=== PATIENT | female | born 1975 | race Caucasian/White ===

== ENCOUNTER 2023-10-16 10:16 | Inpatient (IN) ==
[2023-10-16] MEDS: SODIUM CHLORIDE 0.9% 1,000 ML IV ONE ×2 (11:30→13:32)
--- NOTE | 2023-10-16 11:55 | XRay Report ---
XR chest 1V portable HISTORY: weakness COMPARISON: None. FINDINGS: No pneumothorax. No pleural effusions. Slightly rotated study. Small linear scarlike densit y within the right midlung zone. Otherwise, the lungs are clear. The heart is normal in size. There i s a healing distal left clavicle fracture. This demonstrates mild inferior angulation. No acute fract ures identified within the chest. IMPRESSION: 1. No acute process within the chest. 2. Healing distal left clavicle fracture. ACT 112: Negative or not required by law. Electronically signed by: Sorin Hopper M.D. 10/16/2023 11:54 AM
[2023-10-16 12:04] LABS: Albumin Level 3.2 gm/dl (3.4-5.0); BUN Creatinine Ratio 17.1 (10-20); Bilirubin,Total 0.3 mg/dl (0.2-1.0); Calcium 8.6 mg/dl (8.6-10.3); Creatinine Clr Calc Pharmacy 142.7 ml/min; Est GFR (African American) 149.2 ml/min; Est GFR (Non-African American) 128.7 ml/min; Globulin 3.2 gm/dl (2.5-4.0); Phosphorus 3.4 mg/dl (2.5-4.9); Potassium 3.6 mmol/L (3.5-5.1); Total Protein 6.4 gm/dl (6.0-8.3)
--- NOTE | 2023-10-16 12:06 | Emergency Department Note ---
Impression & Plan Progressive encephalopathy, Proximal muscle weakness, Thrombocytosis, Celiac disease, Iron deficiency, UTI (urinary tract infection) ED Provider Note NAME: KECIA KOHLER AGE: 48 SEX: F : 1975 ARRIVES VIA: Ambulance INFORMANT: Patient ED PROVIDER(S): Yimi Blair MD CHIEF COMPLAINT: Weakness PLAN: Disposition: Admit MEDICAL DECISION MAKING: The patient is a pleasant 48-year-old woman with a past medical history of idiopathic thrombocytosis, celiac disease, recent complicated medical course of worsening generalized weakness dating back to July and recently admitted to [facility] at the beginning and then at the end of August with approximate 8-day hospitalizations and then most recently at the beginning of September at [facility] for another 8-day hospitalization who presents emergency department via EMS and accompanied by her for evaluation of persistent or generalized weakness. The patient's reports that her symptoms have not acutely worsened per se but have not improved at all. He admits that he was supposed to follow-up with a referral for home physical therapy but did not get the moment to get this done in the 48-hour window of time he was supposed to. He understands he did extensive testing during all her hospitalizations and in particular during her last hospitalization at [facility] they did perform a "spinal tap". He is not clear on the details of the lumbar puncture results and understands that it demonstrated "some inflammation" but he was not aware of any particular diagnosis such as Guillain-Resendiz which she admits he himself had wondered if this could be because of her symptoms. They deny any recent fevers, chills, cough, congestion. He admits that she has had poor appetite and poor oral intake overall. On my evaluation the patient is fatigued appearing but no acute distress, afebrile blood pressure upper 90s/60s and vital signs otherwise stable. She appears clinically dry. She exhibits generalized weakness in all extremities with increased truncal weakness. Bilateral patellar reflexes are blunted. Babinski reflexes down however the patient does have notable hyperalgesia when testing this. She exhibits masked facies without overt asymmetric facial weakness on my examination. EKG without overt acute ischemia. CXR negative for acute cardiopulmonary process per my personal preliminary review/interpretation. WBC 14.7 K with neutrophil predominance and mild left shift. H/H within normal limits. Platelets 1200, similar to prior values in setting of chronic idiopathic thrombocytosis. Chemistry without metabolic acidosis. Electrolytes and LFTs without significant abnormality. Procalcitonin is not elevated. TSH, free T4 and free T3 within normal limits. She negative. ESR is mildly elevated at 42 and CRP mildly elevated 2.2, nonspecific. UA suspicious for infection with WBCs and 2+ bacteria. Blood cultures were obtained and empiric treatment initiated with IV ceftriaxone. Tickborne illness testing repeated (this was performed on her prior hospitalizations and were negative). Anaplasma and babesia smear were negative. Lyme screen was negative. DNA testing is pending. Iron studies ordered and pending. Given the patient's reports that the patient did have a lumbar puncture on her last admission this was not repeated and request had made to [facility] for records which was pending. Case was discussed with Janett Strickland with [facility] hospitalist, who will evaluate the patient for admission. [facility] records were subsequently obtained and were reviewed/provided to admitting team. See admitting team HPI for summary of recent OSH extensive testing including imaging, LP, muscle biopsy, immunologic testing, and special consultations. Further management per admitting team. Triage Nursing notes reviewed and agree them. Prior/external medical records reviewed Vital Signs: reviewed Differential diagnosis: Infection, dehydration, metabolic abnormality, hypo/hyperglycemia, electrolyte disturbance, anemia, hypoxia, cardiac sources, intracerebral event, toxicologic, neurologic, as well as other pathologies. ER treatment provided: See below. Diagnostics interpreted by me: ECG: Normal sinus rhythm, 75 bpm, no ectopy, no overt ST elevation or depression, QTc 437, QRS 72. Cardiac Monitoring: An order for continuous cardiac monitoring was placed and demonstrated normal sinus rhythm, 75 bpm, no ectopy. Laboratory studies: See below Imaging studies: See below Consultation(s): Case was discussed with Janett Strickland with [facility] hospitalist, who will evaluate the patient for admission. HPI: The patient is a pleasant 48-year-old woman with a past medical history of idiopathic thrombocytosis, celiac disease, recent complicated medical course of worsening generalized weakness dating back to July and recently admitted to [facility] at the beginning and then at the end of August with approximate 8-day hospitalizations and then most recently at the beginning of September at [facility] for another 8-day hospitalization who presents emergency department via EMS and accompanied by her for evaluation of persistent or generalized weakness. The patient's reports that her symptoms have not acutely worsened per se but have not improved at all. He admits that he was supposed to follow-up with a referral for home physical therapy but did not get the moment to get this done in the 48-hour window of time he was supposed to. He understands he did extensive testing during all her hospitalizations and in particular during her last hospitalization at [facility] they did perform a "spinal tap". He is not clear on the details of the lumbar puncture results and understands that it demonstrated "some inflammation" but he was not aware of any particular diagnosis such as Guillain-Resendiz which she admits he himself had wondered if this could be because of her symptoms. They deny any recent fevers, chills, cough, congestion. He admits that she has had poor appetite and poor oral intake overall. ROS: See above HPI for pertinent positives & negatives. A total of 10 systems reviewed and were otherwise negative. VITALS:See Below PHYSICAL EXAMINATION: GENERAL: Awake, alert, fatigued-appearing, in no distress HENT: Normocephalic, atraumatic. Oropharynx with dry mucous membranes and otherwise unremarkable. EYES: Normal conjunctiva. Sclera non-icteric. NECK: Supple. No nuchal rigidity. FROM. No JVD. RESPIRATORY: Clear to auscultation. CARDIAC: Regular rate, normal rhythm. Extremities warm and well perfused. Pulses equal. ABDOMEN: Soft, non-distended. No tenderness to palpation. No rebound or guarding. No masses. RECTAL: Deferred. MUSCULOSKELETAL: Chest examination reveals no tenderness. The back is symmetrical on inspection without obvious abnormality. There is no CVA tenderness to palpation. No joint edema. LOWER EXTREMITIES: Calves are equal size bilaterally and non-tender. No edema. No discoloration. NEURO: She exhibits masked facies without overt asymmetric facial weakness on my examination. Equivocal dysconjugate gaze. Exhibits generalized weakness in all extremities with increased truncal weakness. Bilateral patellar reflexes are blunted. Babinski reflexes down however the patient does have notable hyperalgesia when testing this. SKIN: No rash or jaundice noted. 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 Consultant Required: No Beliefs That Will Affect Care: Rastafari and Cultural Current Living Situation: Spouse Feels Safe at Home: Yes Safety Concerns: Feels Safe At This Time Assistive Devices: Denture - Upper, Denture - Lower and Glasses Allergies Allergies Allergy/AdvReac Type Severity Reaction Status Date / Time Unable to Assess Allergy Unverified 10/16/23 12:57 Home Meds Home Medications Medication Instructions Recorded Confirmed aspirin 81 mg tablet,delayed 81 mg PO DAILY 10/16/23 10/16/23 release folic acid 1 mg tablet 1 mg PO DAILY 10/16/23 10/16/23 Results & Data (ED) Vital Signs Vital Signs - 24 hr 10/16/23 10:22 10/16/23 10:22 10/16/23 10:43 Temperature 36 C L Temperature Source Axillary Pulse Rate 77 76 77 Pulse Rate from SpO2 Sensor 76 Respiratory Rate 18 34 H 21 Blood Pressure 98/69 L Blood Pressure Mean 78 Pulse Oximetry 100 100 Oxygen Delivery Method Room Air Sepsis Recent Fever Within 48 Hours No Sepsis New/Unexplained Change in Mental Status No Sepsis Action Taken by Nursing No Action Required 10/16/23 11:00 10/16/23 11:00 10/16/23 11:13 Temperature Temperature Source Pulse Rate 80 80 Pulse Rate from SpO2 Sensor Respiratory Rate 24 Blood Pressure 106/71 Blood Pressure Mean 85 Pulse Oximetry Oxygen Delivery Method Sepsis Recent Fever Within 48 Hours Sepsis New/Unexplained Change in Mental Status Sepsis Action Taken by Nursing 10/16/23 11:13 10/16/23 11:30 10/16/23 12:00 Temperature Temperature Source Pulse Rate 79 81 77 Pulse Rate from SpO2 Sensor 79 81 Respiratory Rate 24 24 36 H Blood Pressure Blood Pressure Mean Pulse Oximetry 100 100 Oxygen Delivery Method Sepsis Recent Fever Within 48 Hours Sepsis New/Unexplained Change in Mental Status Sepsis Action Taken by Nursing 10/16/23 12:30 10/16/23 12:34 10/16/23 12:34 Temperature Temperature Source Pulse Rate 74 76 Pulse Rate from SpO2 Sensor 75 77 Respiratory Rate 29 H 28 H Blood Pressure 98/61 L Blood Pressure Mean 72 Pulse Oximetry 100 100 Oxygen Delivery Method Sepsis Recent Fever Within 48 Hours Sepsis New/Unexplained Change in Mental Status Sepsis Action Taken by Nursing 10/16/23 13:00 10/16/23 13:00 10/16/23 13:30 Temperature Temperature Source Pulse Rate 78 81 Pulse Rate from SpO2 Sensor 78 Respiratory Rate 25 H 12 Blood Pressure 94/72 L Blood Pressure Mean 78 Pulse Oximetry 100 Oxygen Delivery Method Sepsis Recent Fever Within 48 Hours Sepsis New/Unexplained Change in Mental Status Sepsis Action Taken by Nursing 10/16/23 13:30 10/16/23 14:00 10/16/23 14:00 Temperature Temperature Source Pulse Rate 86 Pulse Rate from SpO2 Sensor Respiratory Rate 26 H Blood Pressure 97/66 L 94/65 L Blood Pressure Mean 78 73 Pulse Oximetry 95 94 Oxygen Delivery Method Sepsis Recent Fever Within 48 Hours Sepsis New/Unexplained Change in Mental Status Sepsis Action Taken by Nursing Laboratory Data Attestation: I reviewed the patient's lab results. 10/16/23 11:13 10/16/23 11:13 Lab Results 10/16/23 10/16/23 10/16/23 Range/Units 11:03 11:13 12:10 WBC 14.75 H (4.8-10.8) K/ul RBC 4.87 (4.20-5.40) M/uL Hgb 12.8 (12.0-16.0) g/dl Hct 40.4 (37.0-47.0) % MCV 83.0 (80.0-100.0) fL MCH 26.3 (25.0-34.0) pg MCHC 31.7 L (32.0-36.0) g/dL RDW Std Deviation 51.8 H (36.4-46.3) fL RDW Coeff of Krzysztof 17.5 H (11.5-14.5) % Plt Count 1255 H* (130-400) K/uL MPV 9.1 L (9.4-12.4) fL Immature Gran % (Auto) 1.7 % Neut % (Auto) 73.2 % Lymph % (Auto) 15.1 % [place] % (Auto) 8.7 % Eos % (Auto) 0.6 % Baso % (Auto) 0.7 % Reticulocyte % (Auto) (0.50-2.00) % Neut # (Auto) 10.80 H (1.40-6.50) K/uL Lymph # (Auto) 2.22 (1.20-3.40) K/uL [place] # (Auto) 1.29 H (0.11-0.59) K/uL Eos # (Auto) 0.09 (0.00-0.50) K/uL Baso # (Auto) 0.10 (0.00-0.20) K/uL Reticulocyte # (0.020-0.100) 10^6/uL Immature Gran # (Auto) 0.25 H (0.01-0.20) K/uL Polychromasia 1+ Target Cells 1+ [place] Bodies 1+ Echinocytes 1+ ESR (0-20) mm/hr PT 11.9 (9.0-12.0) Seconds INR 1.1 (0.9-1.1) Sodium 138 (136-145) mmol/L Potassium 3.6 (3.5-5.1) mmol/L Chloride 105 (98-107) mmol/L Carbon Dioxide 26 (21-32) mmol/L Anion Gap 7 (3-11) BUN 6 (6-23) mg/dl Creatinine 0.35 L (0.6-1.2) mg/dl Est Cr Clr Drug Dosing 142.7 ml/min Est GFR ( Amer) 149.2 ml/min Est GFR (Non-Af Amer) 128.7 ml/min BUN/Creatinine Ratio 17.1 (10-20) Glucose 88 (70-99(Fasting)) mg/dl Lactate 1.4 (0.4-2.0) mmol/L Calcium 8.6 (8.6-10.3) mg/dl Phosphorus 3.4 (2.5-4.9) mg/dl Magnesium 2.0 (1.7-2.4) mg/dl Iron (35-150) mcg/dl Unsaturated IBC (155-355) mcg/dl Transferrin (200-360) mg/dl Ferritin (8-388) ng/ml Total Bilirubin 0.3 (0.2-1.0) mg/dl AST 26 (13-39) U/L ALT 20 (7-52) U/L Alkaline Phosphatase 83 (34-104) U/L Total Creatine Kinase 43 (26-192) U/L C-Reactive Protein (0-0.5) mg/dl Total Protein 6.4 (6.0-8.3) gm/dl Albumin 3.2 L (3.4-5.0) gm/dl Globulin 3.2 (2.5-4.0) gm/dl Albumin/Globulin Ratio 1.0 (0.9-2) Vitamin B12 680 (180-914) pg/ml Folate 20.86 (>5.38) ng/ml Procalcitonin (0-0.5) ng/ml TSH 0.822 (0.300-4.500) uIu/ml Free T4 (0.61-1.60) ng/dl Free T3 2.50 (2.3-4.2) pg/ml HCG, Qual Negative (Negative) Urine Color Yellow Urine Appearance Clear (Clear) Urine pH 6.5 (4.5-7.5) Ur Specific [place] 1.007 (1.000-1.030) Urine Protein Negative (Negative) Urine Glucose (UA) Negative (Negative) Urine Ketones Negative (Negative) Urine Blood Negative (Negative) Urine Nitrite Negative (Negative) Urine Bilirubin Negative (Negative) Urine Urobilinogen Negative (Negative) Ur Leukocyte Esterase 2+ H (Negative) Urine WBC (Auto) 10-30 H (0-5) /hpf Urine RBC (Auto) 0-4 (0-4) /hpf U Hyaline Cast (Auto) 0 (0-5) /lpf U Epithel Cells (Auto) 10-20 H (0-5) /lpf Urine Bacteria (Auto) 2+ H (Negative) Anaplasma Smear Babesia Smear Lyme Disease Screen (Negative) 10/16/23 Range/Units 12:29 WBC (4.8-10.8) K/ul RBC (4.20-5.40) M/uL Hgb (12.0-16.0) g/dl Hct (37.0-47.0) % MCV (80.0-100.0) fL MCH (25.0-34.0) pg MCHC (32.0-36.0) g/dL RDW Std Deviation (36.4-46.3) fL RDW Coeff of Krzysztof (11.5-14.5) % Plt Count (130-400) K/uL MPV (9.4-12.4) fL Immature Gran % (Auto) % Neut % (Auto) % Lymph % (Auto) % [place] % (Auto) % Eos % (Auto) % Baso % (Auto) % Reticulocyte % (Auto) 1.95 (0.50-2.00) % Neut # (Auto) (1.40-6.50) K/uL Lymph # (Auto) (1.20-3.40) K/uL [place] # (Auto) (0.11-0.59) K/uL Eos # (Auto) (0.00-0.50) K/uL Baso # (Auto) (0.00-0.20) K/uL Reticulocyte # 0.080 (0.020-0.100) 10^6/uL Immature Gran # (Auto) (0.01-0.20) K/uL Polychromasia Target Cells [place] Bodies Echinocytes ESR 42 H (0-20) mm/hr PT (9.0-12.0) Seconds INR (0.9-1.1) Sodium (136-145) mmol/L Potassium (3.5-5.1) mmol/L Chloride (98-107) mmol/L Carbon Dioxide (21-32) mmol/L Anion Gap (3-11) BUN (6-23) mg/dl Creatinine (0.6-1.2) mg/dl Est Cr Clr Drug Dosing ml/min Est GFR ( Amer) ml/min Est GFR (Non-Af Amer) ml/min BUN/Creatinine Ratio (10-20) Glucose (70-99(Fasting)) mg/dl Lactate (0.4-2.0) mmol/L Calcium (8.6-10.3) mg/dl Phosphorus (2.5-4.9) mg/dl Magnesium (1.7-2.4) mg/dl Iron < 10 L (35-150) mcg/dl Unsaturated IBC 188 (155-355) mcg/dl Transferrin 157 L (200-360) mg/dl Ferritin 27.8 (8-388) ng/ml Total Bilirubin (0.2-1.0) mg/dl AST (13-39) U/L ALT (7-52) U/L Alkaline Phosphatase (34-104) U/L Total Creatine Kinase (26-192) U/L C-Reactive Protein 2.21 H (0-0.5) mg/dl Total Protein (6.0-8.3) gm/dl Albumin (3.4-5.0) gm/dl Globulin (2.5-4.0) gm/dl Albumin/Globulin Ratio (0.9-2) Vitamin B12 (180-914) pg/ml Folate (>5.38) ng/ml Procalcitonin < 0.02 (0-0.5) ng/ml TSH (0.300-4.500) uIu/ml Free T4 0.82 (0.61-1.60) ng/dl Free T3 (2.3-4.2) pg/ml HCG, Qual (Negative) Urine Color Urine Appearance (Clear) Urine pH (4.5-7.5) Ur Specific [place] (1.000-1.030) Urine Protein (Negative) Urine Glucose (UA) (Negative) Urine Ketones (Negative) Urine Blood (Negative) Urine Nitrite (Negative) Urine Bilirubin (Negative) Urine Urobilinogen (Negative) Ur Leukocyte Esterase (Negative) Urine WBC (Auto) (0-5) /hpf Urine RBC (Auto) (0-4) /hpf U Hyaline Cast (Auto) (0-5) /lpf U Epithel Cells (Auto) (0-5) /lpf Urine Bacteria (Auto) (Negative) Anaplasma Smear See Comment Babesia Smear See Comment Lyme Disease Screen Negative (Negative) Administered Medications Enoxaparin Sodium (Enoxaparin Inj 40 Mg/0.4 Ml Syr) 40 mg SQ Q24H TAYLA Stop: 11/15/23 17:59 Last Admin: 10/16/23 18:07 Dose: 40 mg Documented By: KBB Discontinued Medications Sodium Chloride (Nss) 1,000 mls @ 999 mls/hr IV .Q1H1M ONE Stop: 10/16/23 12:20 Last Infusion: 10/16/23 12:31 Dose: Infused Documented By: Admin: 10/16/23 11:30 Dose: 999 mls/hr Documented By: HS Ceftriaxone Sodium (Rocephin) 2,000 mg in 50 mls @ 100 mls/hr IV NOW STA Stop: 10/16/23 13:52 Last Infusion: 10/16/23 14:02 Dose: Infused Documented By: Admin: 10/16/23 13:32 Dose: 100 mls/hr Documented By: HS Sodium Chloride (Nss) 1,000 mls @ 999 mls/hr IV .Q1H1M ONE Stop: 10/16/23 14:24 Last Infusion: 10/16/23 14:38 Dose: Infused Documented By: Admin: 10/16/23 13:32 Dose: 999 mls/hr Documented By: HS Imaging Data Radiologist's Impression: Chest X-Ray 10/16/23 11:20 XR chest 1V portable HISTORY: weakness COMPARISON: None. FINDINGS: No pneumothorax. No pleural effusions. Slightly rotated study. Small linear scarlike density within the right midlung zone. Otherwise, the lungs are clear. The heart is normal in size. There is a healing distal left clavicle fracture. This demonstrates mild inferior angulation. No acute fractures identified within the chest. IMPRESSION: 1. No acute process within the chest. 2. Healing distal left clavicle fracture. ACT 112: Negative or not required by law. Electronically signed by: Sorin Hopper M.D. 10/16/2023 11:54 AM Discharge Plan Visit Data Chief Complaint: Weakness ED Provider: Yimi Blair Discharge Problem: Progressive encephalopathy, Proximal muscle weakness, Thrombocytosis, Celiac disease, Iron deficiency, UTI (urinary tract infection) Patient Disposition: Admitted As Inpatient Discharge Instructions Interventions: ED Discharge Assessment Last Done: 10/16/23 16:30 Discharge Problem: UTI (urinary tract infection) Qualifiers: Urinary tract infection type: site unspecified Hematuria presence: without hematuria Qualified Code(s): N39.0 - Urinary tract infection, site not specified
[2023-10-16 12:09] LABS: INR 1.1 (0.9-1.1); Prothrombin Time 11.9 Seconds (9.0-12.0)
[2023-10-16 12:16] LABS: Hematocrit (blood only) 40.4 % (37.0-47.0); Hemoglobin 12.8 g/dl (12.0-16.0); Mean Corpuscular Hemoglobin 26.3 pg (25.0-34.0); Mean Corpuscular Hgb Conc 31.7 g/dL (32.0-36.0); Mean Platelet Volume 9.1 fL (9.4-12.4); Platelet Count 1255 K/uL (130-400); RDW Coefficient of Variation 17.5 % (11.5-14.5); RDW Standard Deviation 51.8 fL (36.4-46.3); Red Blood Count 4.87 M/uL (4.20-5.40); White Blood Count 14.75 K/ul (4.8-10.8)
[2023-10-16 12:18] LABS: Basophils % (auto) 0.7 %; Echinocytes 1+; Eosinophils # (auto) 0.09 K/uL (0.00-0.50); Eosinophils % (auto) 0.6 %; Immature Granulocytes # (auto) 0.25 K/uL (0.01-0.20); Immature Granulocytes % (auto) 1.7 %; Lymphocytes # (auto) 2.22 K/uL (1.20-3.40); Lymphocytes % (auto) 15.1 %; Monocytes # (auto) 1.29 K/uL (0.11-0.59); Monocytes % (auto) 8.7 %; Neutrophils % (auto) 73.2 %; Polychromasia 1+; Target Cells 1+; Thyroid Stimulating Hormone 0.822 uIu/ml (0.300-4.500)
[2023-10-16 12:23] LABS: Appearance Urine Clear (Clear); Bacteria Urine Automated 2+ (Negative); Bilirubin Urine Negative (Negative); Blood Urine Negative (Negative); Cast Urine Automated 0 /lpf (0-5); Color Urine Yellow; Glucose Urine UA Negative (Negative); Ketones Urine Negative (Negative); Leukocyte Esterase Urine 2+ (Negative); Nitrite Urine Negative (Negative); Protein Urine Negative (Negative); Specific Gravity Urine 1.007 (1.000-1.030); Urobilinogen Urine Negative (Negative); pH Urine 6.5 (4.5-7.5)
[2023-10-16 12:46] LABS: RBC Urine Automated 0-4 /hpf (0-4)
[2023-10-16 13:14] LABS: Howell-Jolly Bodies 1+
[2023-10-16 13:17] LABS: C Reactive Protein 2.21 mg/dl (0-0.5)
[2023-10-16 13:26] LABS: Procalcitonin < 0.02 ng/ml (0-0.5)
[2023-10-16] MEDS: cefTRIAXone SODIUM 2,000 MG/50 ML BAG IV STA (13:32)
[2023-10-16 13:51] LABS: Lyme Screen Rflx Confirmation Negative (Negative)
--- NOTE | 2023-10-16 14:22 | History & Physical Report ---
Date of Service October 16, 2023 Assessment & Plan (1) Progressive encephalopathy: (2) Proximal muscle weakness: (3) Celiac disease: (4) Severe protein-calorie malnutrition: (5) Glossitis: (6) Stomatitis: (7) Intermittent complete heart block: (8) Hepatomegaly: (9) Splenic atrophy: (10) Thrombocytosis: (11) Fracture of left clavicle: Plan This is a 48 y/o female with celiac disease, hx ANASTASIA, thrombocytosis who presents today with ongoing weakness for which she has undergone an extensive work-up. Her prior records were extensively reviewed as outlined in this note. History from and daughter at bedside. Total time spent on admission was 185 minutes. Monitor on med telemetry due to history of heart block - if recurrent pauses, consider repeat cardiology evaluation PT/OT consults due to weakness, speech consult due to dysphagia GI consult for dysphagia, odynophagia, hepatomegaly, celiac disease Hematology consult due to iron deficiency, thrombocytosis, prior elevate kappa light chains thought to be clinically insignificant For details of the plan, please see the physician addendum Code Status: Full code DVT prophylaxis: Malcom Wilkerson PA-C History of Present Illness Chief Complaint: Weakness Primary Care Provider: Phoenix Barker PA-C This is a 48 y/o female with celiac disease, hx ANASTASIA, thrombocytosis who presents today with ongoing weakness for which she has undergone an extensive work-up. Her chart was reviewed in-depth including records from [facility] (admissions, hem/onc notes, drawer in hand note, labs, and imaging) and from [facility]. Pt's provides the majority of the history today. Seen by hematology last summer for severe iron deficiency anemia with a Hgb of 5.7 on 12/19/22. Treated with transfusion on 12/20/22, IV Monoferric 300 mg weekly x 4 weeks, Vitron-C. Anemia and fatigue seemed to be improving. Underwent EGD and colonoscopy which showed probable celiac disease so started on a gluten-free diet and has continued to follow this since then. This was thought to be the underlying etiology of the anemia. She was also noted to have lytic lesions in thoracic and lumbar spine - underwent work-up for multiple myeloma including a PET scan which showed no increased uptake. 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 Has also noted wounds present for over a year - treated with multiple courses of antibiotics and steroids. Intermittent issues with LE edema - treated with furosemide by family doc. The edema seemed to contribute to the wounds. These have since healed. Has also noted vocal changes since having a URI - this seems to wax and wane. On Jul 07, pt's reports that she had increased weakness to the point of being unable to get into the buggy. This weakness seemed particularly pronounced in the LE. She continues to have trouble lifting her legs, foot drop at times. Weakness may wax and wane but has not ever resolved. She often requires assist of 1-2 to ambulate. Her notes that her right hands seems to curl inwards and has made eating difficult. They have noted some upper extremity weakness but not as pronounced as the LE weakness. Symptoms seem somewhat cyclical. Her family notes that she may be difficult to wake up at times, not responding verbally to questions. Stools have been intermittently formed - last year had some diarrhea and used probiotics for a time but this has now improved. She was tried on setraline but her reports this made her worse so he stopped it. Also took a matcha drink but also seemed to make her worse so they stopped it. She was admitted in [place] in Jul 2023 - noted to have leukocytosis, leg wounds were infected but this had improved at time of discharge with treatment. No source of weakness identified. Then admitted to [facility] 08/18-08/26/23 for progressive weakness. Underwent extensive work-up without clear etiology identified. She was noted to have intermittent complete heart block and was seen by cardiology but apparently was not interested in potential PPM. She was recommended to have a Zio monitor as an outpatient but it does not appear this was done. Readmitted to [facility] 09/06-09/12/23 for same complaint> Her LE wounds were improving. She was evaluated by GI for ongoing diarrhea and malnutrition and underwent small bowel enteroscopy. Discharged home and presented to [place] the next day. Admitted to [place] 09/13-09/22 - had spinal tap and muscle biopsy but family doesn't have the results yet. Had an abnormality on brain MRI so pt had an angiogram but family unsure of results. Did not get the scripts for medications that were sent at discharge because the pharmacy was closed. The reports that he was also concerned about pt being on these medications. She was on methylprednisolone and then on prednisone during that admission but didn't take it when got home (recommended d/c dose of 30 mg BID). concerned about her being on steroids, specifically the potential for leukocytosis worsening. After discharge from [place], he continued with the recommended wound care and notes healing with closure of the LE wounds within two weeks of being d ischarged. Prior Work-Up CT Chest/Abd/Pel 12/19/22 - IMPRESSION: 1. Lucent lesions at T9, T13, and L3 as described above concerning for osteolytic metastases or multiple myeloma. 2. Lucent lesion with slight ill-defined margins the T9 vertebral body slightly eccentric to the right measuring 1.7 x 1.9 x 1.7 cm. A smaller similar lesion is identified at the left posterolateral aspect of the T13 vertebral body measuring 0.9 x 1.0 x 1.1 cm. A 0.7 cm lucent lesion is also present at the left aspect of the L3 vertebral body. IMPRESSION: 1. Distended but not dilated contrast and water filled small bowel measuring up to 2.9 cm without an obvious transition point, likely adynamic ileus. 2. Distended but not dilated air-filled colon from the cecum to the splenic flexure with [id number] layering fatty stool concerning for bloating and malabsorption. 3. Lucent lesions at T9, T13, and L3 with ill-defined margins described on the same-day chest CT report. Lucent lesion with thin sclerotic margin at the left greater trochanter measuring 1.2 x 1.3 x 1.5 cm which appears benign. 4. Normal appendix. 5. Additional nonacute/incidental findings as described above. Serum Free Light Chains 01/09/23 - Component Ref Range & Units 9 mo ago [place] Free Light Chains, Serum 3.30 - 19.40 mg/L 45.50High Lambda Free Light Chains, Serum 5.71 - 26.30 mg/L 37.14High [place] Lambda Free Light Chains Ratio 0.26 - 1.65 1.23 Serum Immunofixation 01/09/23 - no monoclonal gammopathy Colonoscopy 01/13/23 - fair prep of the colon, sigmoid diverticulosis, internal hemorrhoids, o/w normal; no specimens collected EGD 01/13/23 - esophageal mucosal changes secondary to eosinophilic esophagitis, normal stomach and examined duodenum. Duodenal biopsy - active chronic duodenitis with erosion and villous atrophy Esophagus biopsy - esophagitis w/ features most c/w reflux esophagitis, no intraepithelial eosinophilia identified Urine Immunofixation, Bence Cespedes Protein, 24 Hour Urine - urine protein 5 mg/dL, small abnormality in kappa Blood Smear 01/23/23 - Impression: Prominent microcytic anemia and prominent thrombocytosis consistent with iron deficiency anemia PET Scan 01/20/23 - IMPRESSION: 1. Lucent lesions in the spine are without associated activity, likely representing vertebral body hemangiomas. 2. Fluid distended small bowel with a degree of jejunoileal fold reversal, as well as multiple prominent mesenteric lymph nodes, including one with low attention cavitation. This constellation of findings can be seen with Celiac disease, noting question of celiac disease on recent duodenal biopsy and equivocal serology. CT Head 08/18/23 - No acute intracranial abnormality CT Chest 08/19/23 - No acute thoracic abnormality CT Abd/pel 08/19/23 - IMPRESSION: 1. Fluid-filled small and large bowel. Correlate with any history of diarrheal illness. No significant bowel wall thickening. 2. Mild mesenteric lymphadenopathy and mesenteric fat stranding overall similar to prior exam on 12/19/2022. Findings could be related to mild enteritis. 3. Findings concerning for possible pelvic venous insufficiency, correlate with any history of chronic pelvic pain. Bilateral Venous Duplex LE 08/21/23 - no acute DVT either LE SPEP 08/20/23 - Component Ref Range & Units Normal/Abnormal Normal Normal Protein 6.0 - 8.3 g/dL 5.6Low Albumin 3.30 - 4.40 g/dL 2.36Low Alpha-1 Globulin 0.10 - 0.30 g/dL 0.32High Alpha-2 Globulin 0.60 - 1.00 g/dL 1.11High Beta-Globulin 0.80 - 1.30 g/dL 0.90 Gamma-Globulin 0.70 - 1.70 g/dL 0.91 Electrophoresis Interpretation No paraprotein detected. Serum Free Light Chains 08/20/23 - Component Ref Range & Units 1 mo ago [place] Free Light Chains, Serum 3.30 - 19.40 mg/L 31.58High Lambda Free Light Chains, Serum 5.71 - 26.30 mg/L 38.47High [place] Lambda Free Light Chains Ratio 0.26 - 1.65 0.82 Immunoglobulin Quantitative 08/20/23 - Component Ref Range & Units 1 mo ago IgG 700 - 1,600 mg/dL 915 IgA 70 - 400 mg/dL 315 IgM 40 - 230 mg/dL 61 MyGenvar Myeloproliferative Panel 08/21/23 - No BCR-ABL1 fusion or clinical relevant mutation in CALR, CSF3R, JAK2 or MPL genes is detected. Lyme Disease Antibody Screen 09/06/23 - negative CT Head/Brain 09/06/23 - no acute intracranial abnormality CT C-spine 09/06/23 - no acute findings Obstruction series 09/06/23 - nonobstructive bowel gas pattern XR Shoulder (left) 09/06/23 - no evidence of acute fracture or subluxation RUQ U/S 09/06/23 - IMPRESSION: 1. Nonspecific diffuse borderline gallbladder wall thickening measuring 3-4 mm, may be due to incomplete distension. 2. Small gallbladder polyps measuring up to [address] Abd/Pel 09/06/23 - IMPRESSION: Evidence of enteritis, infectious or inflammatory, with diffuse small bowel wall thickening. The small bowel is moderately distended with fluid. Small Bowel Enteroscopy 09/11/23 - normal esophagus, normal stomach, normal duodenal bulb and second portion of the duodenum, normal examined jejunum Jejunum - minimally active chronic jejunitis with mild villous blunting Duodenum - minimally active chronic duodenitis with focal mild villous blunting Stomach - gastric oxyntic mucosa w/ focal mild chronic gastritis, negative for dysplasia, H. pylori, and intestinal metaplasia MRI Cervical Spine 09/13/23 - unremarkable Lumbar Puncture 09/14/23 - CSF negative for malignant cells, scattered lymphocytes and monocytes, rare neutrophils present Glucose 52, Protein 55 (H), Lymphocytes 88 (H), Monocytes 12 (L), Total nucleated cells 9 (H), RBCs 1 (H) A1c 09/19/23 = 5.9 CT Abd/Pel 09/22/23 - enlarged liver measuring 19 cm craniocaudal dimension, atrophic spleen measuring 4x1.6x3.9 cm, 2 indeterminate hypoattenuating densities within the pancreatic head/uncinate process (DDx pancreatic cyst, psuedocyst or IPMN - consider MRI), multiple fluid-filled distended SB loops demonstrating gradual transition to nondilated distal ileum with no oral contrast in the distal ileum or cecum (developing SBO or diffuse SB ileus?), nonspecific diffuse bony sclerosis of the visualized inferior thoracic, lumbar, and sacral spines RUQ U/S 09/22/23 - no abnormality in the RUQ, spleen is atrophied and not well- visualized Dr. Dwayne Holbrook [phone] (provider who cared for pt initially in [place]) Allergies Allergy/AdvReac Type Severity Reaction Status Date / Time Unable to Assess Allergy Unverified 10/16/23 12:57 Home Medications Medication Instructions Recorded Confirmed Type aspirin 81 mg tablet,delayed 81 mg PO DAILY 10/16/23 10/16/23 History release folic acid 1 mg tablet 1 mg PO DAILY 10/16/23 10/16/23 History Past Med/Surg History Medical History (Updated 10/16/23 @ 17:44 by Solange Wilkerson PA-C) Celiac disease autoimmune enteropathy Surgical History (Updated 10/16/23 @ 14:42 by Solange Wilkerson PA-C) History of colonoscopy H/O esophagogastroduodenoscopy Family History (Updated 10/16/23 @ 15:05 by Solange Wilkerson PA-C) Grandfather (Maternal) Colorectal cancer Social History Smoking Status: Never smoker Preferred Language: [place] Feels Safe at Home: Yes Review of Systems Review of Systems: Limited - see HPI Physical Exam Physical Exam: Please see physician addendum for details of the physical exam Results & Data Results & Data Vital Signs (Past 12 Hours) Vital Signs Temp Pulse Resp BP Pulse Ox O2 Del Method 10/16/23 13:30 97/66 L 95 10/16/23 13:30 81 12 10/16/23 13:00 78 25 H 100 10/16/23 13:00 94/72 L 10/16/23 12:34 76 28 H 100 10/16/23 12:34 98/61 L 10/16/23 12:30 74 29 H 100 10/16/23 12:00 77 36 H 10/16/23 11:30 81 24 100 10/16/23 11:13 79 24 100 10/16/23 11:13 106/71 10/16/23 11:00 80 24 10/16/23 11:00 80 10/16/23 10:43 77 21 10/16/23 10:22 76 34 H 100 10/16/23 10:22 36 C L 77 18 98/69 L 100 Room Air Laboratory Results Laboratory Results - last 24 hr 10/16/23 10/16/23 10/16/23 11:03 11:13 12:10 WBC 14.75 H RBC 4.87 Hgb 12.8 Hct 40.4 MCV 83.0 MCH 26.3 MCHC 31.7 L RDW Std Deviation 51.8 H RDW Coeff of Krzysztof 17.5 H Plt Count 1255 H* MPV 9.1 L Immature Gran % (Auto) 1.7 Neut % (Auto) 73.2 Lymph % (Auto) 15.1 Kimball % (Auto) 8.7 Eos % (Auto) 0.6 Baso % (Auto) 0.7 Neut # (Auto) 10.80 H Lymph # (Auto) 2.22 Kimball # (Auto) 1.29 H Eos # (Auto) 0.09 Baso # (Auto) 0.10 Immature Gran # (Auto) 0.25 H Polychromasia 1+ Target Cells 1+ Dominguez-Mogul Bodies 1+ Echinocytes 1+ ESR PT 11.9 INR 1.1 Sodium 138 Potassium 3.6 Chloride 105 Carbon Dioxide 26 Anion Gap 7 BUN 6 Creatinine 0.35 L Est Cr Clr Drug Dosing 142.7 Est GFR ( Amer) 149.2 Est GFR (Non-Af Amer) 128.7 BUN/Creatinine Ratio 17.1 Glucose 88 Lactate 1.4 Calcium 8.6 Phosphorus 3.4 Magnesium 2.0 Iron Unsaturated IBC Transferrin Ferritin Total Bilirubin 0.3 AST 26 ALT 20 Alkaline Phosphatase 83 Total Creatine Kinase 43 C-Reactive Protein Total Protein 6.4 Albumin 3.2 L Globulin 3.2 Albumin/Globulin Ratio 1.0 Vitamin B12 Pending Folate Pending Procalcitonin TSH 0.822 Free T4 Urine Color Yellow Urine Appearance Clear Urine pH 6.5 Ur Specific Kinsley 1.007 Urine Protein Negative Urine Glucose (UA) Negative Urine Ketones Negative Urine Blood Negative Urine Nitrite Negative Urine Bilirubin Negative Urine Urobilinogen Negative Ur Leukocyte Esterase 2+ H Urine WBC (Auto) 10-30 H Urine RBC (Auto) 0-4 U Hyaline Cast (Auto) 0 U Epithel Cells (Auto) 10-20 H Urine Bacteria (Auto) 2+ H Anaplasma Smear A. phagocytophilum DNA Babesia Smear Babesia microti DNA PCR Lyme Disease Screen E.chaffeensis DNA (PCR) Q Fever Phase I IgG Ab Q Fever Phase I IgM Ab Q Fever Phase II IgG Ab Q Fever Phase II IgM Ab Rickettsia IgG Ab Rickettsia IgM Ab Typhus Fever IgG Ab Typhus Fever IgM Ab 10/16/23 12:29 WBC RBC Hgb Hct MCV MCH MCHC RDW Std Deviation RDW Coeff of Krzysztof Plt Count MPV Immature Gran % (Auto) Neut % (Auto) Lymph % (Auto) Kimball % (Auto) Eos % (Auto) Baso % (Auto) Neut # (Auto) Lymph # (Auto) Kimball # (Auto) Eos # (Auto) Baso # (Auto) Immature Gran # (Auto) Polychromasia Target Cells Dominguez-Mogul Bodies Echinocytes ESR 42 H PT INR Sodium Potassium Chloride Carbon Dioxide Anion Gap BUN Creatinine Est Cr Clr Drug Dosing Est GFR ( Amer) Est GFR (Non-Af Amer) BUN/Creatinine Ratio Glucose Lactate Calcium Phosphorus Magnesium Iron Pending Unsaturated IBC Pending Transferrin Pending Ferritin Pending Total Bilirubin AST ALT Alkaline Phosphatase Total Creatine Kinase C-Reactive Protein 2.21 H Total Protein Albumin Globulin Albumin/Globulin Ratio Vitamin B12 Folate Procalcitonin < 0.02 TSH Free T4 Pending Urine Color Urine Appearance Urine pH Ur Specific Kinsley Urine Protein Urine Glucose (UA) Urine Ketones Urine Blood Urine Nitrite Urine Bilirubin Urine Urobilinogen Ur Leukocyte Esterase Urine WBC (Auto) Urine RBC (Auto) U Hyaline Cast (Auto) U Epithel Cells (Auto) Urine Bacteria (Auto) Anaplasma Smear See Comment A. phagocytophilum DNA Pending Babesia Smear See Comment Babesia microti DNA PCR Pending Lyme Disease Screen Negative E.chaffeensis DNA (PCR) Pending Q Fever Phase I IgG Ab Pending Q Fever Phase I IgM Ab Pending Q Fever Phase II IgG Ab Pending Q Fever Phase II IgM Ab Pending Rickettsia IgG Ab Pending Rickettsia IgM Ab Pending Typhus Fever IgG Ab Pending Typhus Fever IgM Ab Pending Diagnostic Findings Chest X-Ray 10/16/23 11:20 XR chest 1V portable HISTORY: weakness COMPARISON: None. FINDINGS: No pneumothorax. No pleural effusions. Slightly rotated study. Small linear scarlike density within the right midlung zone. Otherwise, the lungs are clear. The heart is normal in size. There is a healing distal left clavicle fracture. This demonstrates mild inferior angulation. No acute fractures identified within the chest. IMPRESSION: 1. No acute process within the chest. 2. Healing distal left clavicle fracture. ACT 112: Negative or not required by law. Electronically signed by: Sorin Hopper M.D. 10/16/2023 11:54 AM Medications Administered Sodium Chloride (Nss) 1,000 mls @ 999 mls/hr IV .Q1H1M ONE Stop: 10/16/23 14:24 Last Admin: 10/16/23 13:32 Dose: 999 mls/hr Documented By: HS Discontinued Medications Sodium Chloride (Nss) 1,000 mls @ 999 mls/hr IV .Q1H1M ONE Stop: 10/16/23 12:20 Last Infusion: 10/16/23 12:31 Dose: Infused Documented By: Admin: 10/16/23 11:30 Dose: 999 mls/hr Documented By: HS Ceftriaxone Sodium (Rocephin) 2,000 mg in 50 mls @ 100 mls/hr IV NOW STA Stop: 10/16/23 13:52 Last Admin: 10/16/23 13:32 Dose: 100 mls/hr Documented By: HS Supervising Physician Co-Signing Physician Notes I have seen and discussed the case with the collaborating advanced practitioner. I agree with the above H&P. I have reviewed and confirmed the patients medical history, the findings on physical examination, and the patients diagnosis and treatment plan with Rhea BOOKER and agree with the information documented. In short, Ms. Guevara is a 48 year old woman with past medical history notable for celiac disease controlled on gluten free diet who is admitted for continued weakness after ongoing workup for progressive neurologic symptoms have been ongoing. Extensive admissions (three this year). Patient with history of celiac disease diagnosed in 01/2023 and has followed a strict gluten free diet. Patient experienced lower extremity wounds that appeared and treated with multiple courses of antibiotics. She was admitted to [facility] on 08/18/2023-08/26/2023 and once again on 09/06/2023- 09/12/2023 for weakness and diagnosed with PMR. Patient presented to [place] for further evaluation of encephalopathy and weakness. 09/13: MRI brain on was notable for 3mm focus of diffusion restriction in posterior limb of left internal capsule, ?demyelinating lesion v small cortical infarct. -MRI C-spine negative CTA head and neck 09/14 with questionable stenosis of A1 segment on left ICA Neurology with concerns for systemic vasculitis with PERSONAL DEVELOPMENT EDUCATOR involvement as well as MS Work up included: -CPK and aldolase 5.7 (09/14) negative -ISABELLE 24 (09/22) LP: CSF WBC 9, Glucose 52, Protein 55, Monocytes 12, VDRL negative, HSV PCR negative, paraneoplastic negative, oligoclonal bands negative Autoimmune w/u: RF, anti CCP, QUINN, C3/C4, ati-vitale, anti-ONLINE MERCHANT, anti-SCL, anti- SSA/SSB, antiDSantibody, MUSK antibodies, anti JO1, ANCA, antiSMA, anti centromere, hepatitis panel, HIV, anticardiolipin antibiody, Myasthenia antibodies negative, tick panel negative, cryoglobulin negative 09/16: ECHO: 60-65% 09/17: MRI brain on reveaed stable perfusion abnormality. 09/18: Stroke neurology consulted on noted concer for systemic vasculitis 09/19:Cerebral angiogram with no acute findings effectively making PERSONAL DEVELOPMENT EDUCATOR vasculitis unlikely per Rheumatology -Rheumatology recommended prednisone 1mg/kg with OP taper and planned OP Rheum follow up, no sural nerve biopsy recommended 09/20: left thigh muscle biopsy (RESULTS not sent with chart review) Patient did not continue steroids, nor follow up with Rheumatology. GENERAL APPEARANCE: AxO3, frail and appears uncomfortable HEENT: NC, AT. MMM. EOMI,right side stomatitis, diffuse textural changes on tongue, areas of loss of texture NECK: Supple without lymphadenopathy. No stiffness or restricted ROM. HEART: Normal rate and regular rhythm, normal S1/S1, no m/r/g LUNGS: CTAB, moving air well. No crackles or wheezes are heard. ABDOMEN: Soft, nontender, nondistended with good bowel sounds heard. BACK: No CVAT, no obvious deformity. EXTREMITIES: Without cyanosis, clubbing or edema. 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 myositis?) #Glossitis #Stomatitis right sided stomatitis, geographic tongue noted on exam -Iron deficient, B12/folate WNL Micronutrient labs ordered: zinc, copper, - B vitamin complex #Intermittent Complete Heart Block -Reported at [facility], declined device discussion at that time -Monitor on tele #Leukocytosis, persistent throughout recent admissions #abnormal UA UA questionable for infection, but notable epithelial cells; denies urinary symptoms, but will treat empirically given ongoing weakness -CTX 48 hours, follow up clinically/cultures #Celiac Disease #Folic acid deficiency secondary to malabsorption #Dilated small bowel on imaging #Hepatomegaly with splenic atrophy #Severe protein calorie malnutrition LFTS normal on admission, bowel habits stable Evidence of enteritis, infectious or inflammatory, with diffuse small bowel wall thickening. The small bowel is moderately distended with fluid. Fecal A. Jejunum, biopsy: - Minimally active chronic jejunitis with mild villous blunting (see comment). B. Duodenum, biopsy: - Minimally active chronic duodenitis with focal mild villous blunting (see comment). C. Stomach, biopsy: Gastric oxyntic mucosa with focal mild chronic gastritis. Negative for dysplasia, H. pylori (immunostain) and intestinal metaplasia. -Diagnosed 01/2023, EGD 09/11 with chronic duodenitis,tissue transglutaminase IgA negative (reports strict gluten free adherence) -Small bowel enteritis noted to be present on imaging from Aug and Sep. -Folate 5.3 at OSH, on folic supplementation -Completed treatment for candidiasis 09/13, noted stool yeast previously -Consult GI given persistent dysphagia/symptoms -Trend CMP in am #Healing left distal clavicle #Bony Sclerosis, Spinal hemangiomas on PET scan January 2023 -PET scan 01/2023, lucent lesions without avidity -noted on imaging at OSH -Vit D 25oh in am #BLE wounds, clinically pyoderma gangrenosum -No biopsies performed, wound cultures as OP Started on Bactrim, wounds healed, multiple scarring no open wounds present on admission #Chronic thrombocytosis -no evidence of primary bone marrow disorder, prior elevated kappa light chains of no clinical significance with normal K/L ratio, negative PET scan -Followed Heme-onc inpatient/outpatient, felt to be reactive in setting of iron deficiency and nutritional deficits -Peripheral smear -Heme onc consult DVT ppx lovenox Rest of plan as above I spent a total of 60 minutes coordinating, documenting, and providing care for this patient excluding time spent in the performance of separately billed services. All of the aforementioned completed outside of collaborating with the assigned advanced practitioner for a full treatment plan. I have reviewed the advanced practitioner's documentation, and I agree with, and take responsibility for the plan of care (11) Fracture of left clavicle Clavicle location: lateral end Encounter type: initial encounter Fracture alignment: nondisplaced Fracture type: closed Qualified Code(s): S42.035A - Nondisplaced fracture of lateral end of left clavicle, initial encounter for closed fracture
[2023-10-16 14:41] LABS: Iron < 10 mcg/dl (35-150); Transferrin 157 mg/dl (200-360); Unsaturated Iron Binding Cap 188 mcg/dl (155-355)
[2023-10-16 14:51] LABS: Pregnancy Test, Serum Negative (Negative)
[2023-10-16 14:54] LABS: T4 Free Thyroxine 0.82 ng/dl (0.61-1.60)
[2023-10-16 14:56] LABS: Ferritin 27.8 ng/ml (8-388)
[2023-10-16 15:18] LABS: Folate (Folic Acid),Ser orPlas 20.86 ng/ml (>5.38)
[2023-10-16 17:09] LABS: Reticulocyte % 1.95 % (0.50-2.00); Reticulocytes # 0.08 10^6/uL (0.020-0.100)
[2023-10-16] MEDS: ENOXAPARIN INJ 40 MG/0.4 ML SYR SQ SCH (18:07)
--- NOTE | 2023-10-17 06:03 | Electrocardiogram Report ---
Test Reason : Blood Pressure : / mmHG Vent. Rate : 075 BPM Atrial Rate : 075 BPM P-R Int : 164 ms QRS Dur : 072 ms QT Int : 392 ms P-R-T Axes : 072 068 087 degrees QTc Int : 437 ms Normal sinus rhythm Normal ECG No previous ECGs available Confirmed by Kwaku Oliver ([id number]) on 10/17/2023 6:03:20 AM Referred By: REFERRED SELF Confirmed By:Kwaku Oliver
--- OUTSIDE RECORDS SUMMARY | 2023-10-17 06:37 | External Medical Summary | Summary of Care ---
Author Name Unknown Organization [facility] Address [address] [place] [address] Phone [phone] Care Team Providers Care Outsole Cementer Name Role Phone Phoenix Barker PA-C Primary Care Provide r Encounter Details Date Type Department Care Team (Late st Contact Info) Description 09/26/2023 Telephone Gynecology/Obstetrics [facility] [address] [place] [address] Raissa Shay MD [address] [place] [address] Allergies Active Allergy Reactions Criticality Noted Date Comments Ferric Derisomaltose 12/30/2022 SOB and lost consciousness documented as of this encounter (statuses as of 09/27/2023) Medications Medication Sig Dispensed Refills Start Date End Date Status Furosemide 5 MG OR TABS Take by mouth daily. 0 Active Roller Walker Use as directed 1 Each 0 08/26/2023 Active Folic Acid 1 MG Oral Tablet Take 1 Tablet by mouth in the morning. 30 Tablet 0 09/13/2023 Active documented as of this encounter (statuses as of 09/27/2023) Active Problems Problem Noted Date Diagnosed Date Pyoderma gangrenosum 09/06/2023 Malnutrition of moderate degree 08/19/2023 Intermittent complete atrioventricular block Lymphedema 08/18/2023 Venous stasis ulcers of both lower extremities 0 08/18/2023 Generalized weakness 08/18/2023 Thrombocytosis 08/18/2023 Celiac disease 08/18/2023 Other iron deficiency anemias 12/20/2022 Anemia 12/19/2022 documented as of this encounter (statuses as of 09/27/2023) Resolved Problems Problem Noted Date Diagnosed Date Resolved Date Abnormal CT of the abdomen 09/07/2023 0 09/12/2023 Anemia due to chronic blood loss 08/21/2023 08/26/2023 Acute pharyngitis 08/18/2023 09/12/2023 documented as of this encounter (statuses as of 09/27/2023) Social History Tobacco Use Types Packs/Day Years Used Date Smoking Tobacco: Never Smokeless Tobacco: Never Alcohol Use Standard Drinks/Week Comments Never 0 (1 standard drink = 0.6 oz pur e alcohol) Sex and Gender Information Value Date Recorded Sex Assigned at Not on file Gender Identity Not on file Sexual Orientation Not on file Job Start Date Occupation Industry Not on file Not on file Not on file documented as of this encounter Functional Status Functional Status Response Date of Assess ment Are you deaf or do you have serious difficulty h earing? No 09/06/2023 Are you blind or do you have serious difficulty seeing, even when wearing glasses? No 09/06/2023 Do you have serious difficul ty walking or climbing stairs? (5 years old or older) Yes 09/06/2023 Do you have difficulty dress ing or bathing? (5 years old or older) Yes 09/06/2023 Because of a physical, menta l, or emotional condition, do you have difficulty doing errands alone such as visiting a doctor s office or shopping? (15 years old or older) Yes 09/06/19 Cognitive Status Response Date of Assessm ent Because of a physical, menta l, or emotional condition, do you have serious difficulty concentrating, remembering, or making decisions? (5 years old or older) Yes 09/06/2023 documented as of this encounter Miscellaneous Notes * Telephone Encounter - Debra Power RN - 09/27/2023 3:[address] Shay has a 1:00 meeting. I can't put that pt in there. Claudia Yes either time will work--Per Claudia. T/C to pt. No answer. VM left for pt to return call to office. Please assist pt with rescheduling appt on 10/02/2023 to either 10:30 or 3:30 same day opening. * Telephone Encounter - Debra Power RN - 09/27/2023 8:43 AM EST Can I offer the 10:30 or the 3:[address] Shay? * Telephone Encounter - Debra Power RN - 09/26/2023 10:11 AM EST Please move appt on 10/02/2023 at 12:30 to 1:00 same day slot. documented in this encounter Plan of Treatment Upcoming Encounters Date Type Department Care Team (Latest Contact Info) Description 10/02/2023 12:30 PM EST Office Visit Gynecology/Obste trics [address] [phone] Raissa Shay MD [address] [place] [address] 11/16/2023 11:30 AM EDT Hospital Encounter [facility], Endoscopy [address] [phone] Tyler Perez MD [address] [place] [address] 11/16/2023 11:30 AM EDT - 11/16/2023 12:00 PM EDT Surgery [facility], Endoscopy [address] [phone] Tyler Perez MD [address] [place] [address] ESOPHAGOGASTRODUODENOSCOPY (EGD), FLEXIBLE, TRANSORAL, DIAGNOSTIC Scheduled Procedures Name Priority Associated Diagnoses Date/Ti me ESOPHAGOGASTRODUODENOSCOPY (EGD), FLEXIBLE, TRANSORAL, DIAGNOSTIC Dysphagia Abnormal findings on esophagogastroduodenoscopy (EGD) 11/16/2023 11:30 AM EDT Health Maintenance Due Date Last Done Comments Depression Screening 1987 HIV Screening 1990 Hepatitis C Screening 1993 DTaP,Tdap,and Td Vaccines (1 - Tdap) 1994 Hepatitis B (1 of 3 - 19+ 3-dose series) 1994 Pap Smear 1996 Cervical Cancer Screening 2005 HPV/Co-Test 2005 Mammogram 2015 Cologuard 2020 Fecal Occult Blood Test 2020 Sigmoidoscopy 2020 COVID-19 Vaccine ( - 2022-2 4 season) 2023 Influenza Vaccine (FLU shot) (#1) 2023 Lipid Panel 12/01/2027 11/30/2022 Colonoscopy 01/13/2033 01/13/2023, 01/13/2023 Colorectal Cancer Screening 01/13/2033 GARDASIL-HPV IMMUNIZATION SERIES Aged Out No longer eligible b ased on patient's age to complete this topic MENINGOCOCCAL (MENACTRA/MENVEO) Aged Out No longer eligible b ased on patient's age to complete this topic Pneumococcal Vaccine: Pediatrics (0 to 5 Years) and At-Risk Patients (6 to 64 Years) Aged Out No longer eligible b ased on patient's age to complete this topic documented as of this encounter Medical Devices Not on filedocumented as of this encounter Advance Directives Latest Code Status on File Code Status Date Activated Date Inactivated Comments Full Code 09/06/2023 8:11 PM 09/12/2023 6:02 PM This o rder reflects the patients wishes and were consensually agreed upon. Question Answer Comments Discussion of Advance Directives occurred with: Not Discussed due to patient's condition Code Status History Code Status Date Activated Date Inactivated Comments Full Code 08/18/2023 9:22 PM 08/26/2023 5:36 PM This order reflects the patients wishes and were consensually agreed upon. Question Answer Comments Discussion of Advance Directives occurred with: Not Discussed due to patient's condition Care Teams Outsole Cementer Relationship Specialty Start Date End Date Phoenix Barker PA-C [address] [place] [address] PCP - General Physician Perpetual Inventory Clerk 09/12/23 documented as of this encounter
--- OUTSIDE RECORDS SUMMARY | 2023-10-17 06:37 | External Medical Summary | Summary of Care ---
Author Name Unknown Organization [facility] Address [address] [place] [address] Phone [phone] Care Team Providers Care Health And Nutrition Specialist Name Role Phone Phoenix Barker PA-C Primary Care Provide r Encounter Details Date Type Department Care Team (Late st Contact Info) Description 09/26/2023 Telephone Gynecology/Obstetrics [facility] [address] [place] [address] Amanda Mcclain MD [address] [place] [address] Allergies Active Allergy Reactions Criticality Noted Date Comments Ferric Derisomaltose 12/30/2022 SOB and lost consciousness documented as of this encounter (statuses as of 10/10/2023) Medications Medication Sig Dispensed Refills Start Date End Date Status Furosemide 5 MG OR TABS Take by mouth daily. 0 Active Roller Walker Use as directed 1 Each 0 08/26/2023 Active Folic Acid 1 MG Oral Tablet Take 1 Tablet by mouth in the morning. 30 Tablet 0 09/13/2023 Active documented as of this encounter (statuses as of 10/10/2023) Active Problems Problem Noted Date Diagnosed Date Pyoderma gangrenosum 09/06/2023 Malnutrition of moderate degree 08/19/2023 Intermittent complete atrioventricular block Lymphedema 08/18/2023 Venous stasis ulcers of both lower extremities 0 08/18/2023 Generalized weakness 08/18/2023 Thrombocytosis 08/18/2023 Celiac disease 08/18/2023 Other iron deficiency anemias 12/20/2022 Anemia 12/19/2022 documented as of this encounter (statuses as of 10/10/2023) Resolved Problems Problem Noted Date Diagnosed Date Resolved Date Abnormal CT of the abdomen 09/07/2023 0 09/12/2023 Anemia due to chronic blood loss 08/21/2023 08/26/2023 Acute pharyngitis 08/18/2023 09/12/2023 documented as of this encounter (statuses as of 10/10/2023) Social History Tobacco Use Types Packs/Day Years [...] Yes 09/06/2023 documented as of this encounter Plan of Treatment Upcoming Encounters Date Type Department Care Team (Latest Contact Info) Description 11/16/2023 11:30 AM EDT Hospital Encounter [facility], Endoscopy [address] [place] [phone] Tyler Perez MD [address] [facility] [place] [address] 11/16/2023 11:30 AM EDT - 11/16/2023 12:00 PM EDT Surgery [facility], Endoscopy [address] [place] [phone] Tyler Perez MD [address] [place] [address] ESOPHAGOGASTRODUODENOSCOPY (EGD), FLEXIBLE, TRANSORAL, DIAGNOSTIC Scheduled Procedures [...] Discussed due to patient's condition Care Teams Health And Nutrition Specialist Relationship Specialty Start Date End Date Phoenix Barker PA-C [facility] [address] [place] [address] PCP - General Physician Study Abroad Coordinator 09/12/23 documented as of this encounter
--- OUTSIDE RECORDS SUMMARY | 2023-10-17 06:37 | External Medical Summary | Summary of Care ---
Author Name Unknown Organization [facility] Address [address] [facility] [place] [address] Phone [phone] Care Team Providers Care Greenskeeper Name Role Phone Phoenix Barker PA-C Primary Care Provide r Encounter Details Date Type Department Care Team (Late st Contact Info) Description 09/26/2023 Telephone Gynecology/Obstetrics [facility] [address] [place] [address] Raissa Shay MD [address] [place] [address] Allergies Active Allergy Reactions Criticality Noted Date Comments Ferric Derisomaltose 12/30/2022 SOB and lost consciousness documented as of this encounter (statuses as of 09/26/2023) Medications Medication Sig Dispensed Refills Start Date End Date Status Furosemide 5 MG OR TABS Take by mouth daily. 0 Active Roller Walker Use as directed 1 Each 0 08/26/2023 Active Folic Acid 1 MG Oral Tablet Take 1 Tablet by mouth in the morning. 30 Tablet 0 09/13/2023 Active documented as of this encounter (statuses as of 09/26/2023) Active Problems Problem Noted Date Diagnosed Date Pyoderma gangrenosum 09/06/2023 Malnutrition of moderate degree 08/19/2023 Intermittent complete atrioventricular block Lymphedema 08/18/2023 Venous stasis ulcers of both lower extremities 0 08/18/2023 Generalized weakness 08/18/2023 Thrombocytosis 08/18/2023 Celiac disease 08/18/2023 Other iron deficiency anemias 12/20/2022 Anemia 12/19/2022 documented as of this encounter (statuses as of 09/26/2023) Resolved Problems Problem Noted Date Diagnosed Date Resolved Date Abnormal CT of the abdomen 09/07/2023 0 09/12/2023 Anemia due to chronic blood loss 08/21/2023 08/26/2023 Acute pharyngitis 08/18/2023 09/12/2023 documented as of this encounter (statuses as of 09/26/2023) Social History Tobacco Use Types Packs/Day Years [...] Department Care Team (Latest Contact Info) Description 09/26/2023 11:15 AM EST Office Visit Gynecology/Obste [address] [phone] Amanda Mcclain MD [address] [place] [phone] 10/02/2023 12:30 PM EST Office Visit Gynecology/Obste [address] [phone] Raissa Shay MD [address] [place] [address] 11/16/2023 11:30 AM EDT Hospital Encounter [facility], Endoscopy [address] [phone] Tyler Perez MD [address] [place] [address] 11/16/2023 11:30 AM EDT - 11/16/2023 12:00 PM EDT Surgery [facility], Endoscopy [address] [phone] Tyler Perez MD [address] [place] [address] ESOPHAGOGASTRODUODENOSCOPY (EGD), FLEXIBLE, TRANSORAL, DIAGNOSTIC Scheduled Procedures [...] Blood Test 2020 Sigmoidoscopy 2020 COVID-19 Vaccine (1 - 2022-2 4 season) 2023 Influenza Vaccine [...] Discussed due to patient's condition Care Teams Greenskeeper Relationship Specialty Start Date End Date Phoenix Barker PA-C [facility] [address] [place] [address] PCP - General Physician Merchandising Professor 09/12/23 documented as of this encounter
--- OUTSIDE RECORDS SUMMARY | 2023-10-17 06:37 | External Medical Summary ---
Author Name Unknown Address Unknown Organization [id number]:LABORATORY [address] [facility] [address] Laboratory Report Ordering Provider Test Date Status CELINA IBARRA 10/02/2023 10:52:00 Final Observation Date Value Abnormality Reference (Units ) Status Human papilloma virus E6+E7 mRNA [Presence] in Cervix by RICK with probe detection 10/02/2023 10:52:00 Negative Not Applicable Final No high/intermediate-risk Hu man Papillomavirus (HPV E6/E7 messenger RNA) detected by nucleic acid amplification.

This assay looks for high/intermediate risk Human Papillomavirus (HPV E6/E7 messenger RNA) by nucleic acid amplification. This assay includes the qualitative detection of HPV types 16,18,31,33,35,39,45,51,52,56,58,59,66 and 68 from cervical specimens.
This assay has been FDA cleared for Thin prep collection vials.
This assay has not been approved for use as a primary screening test for HPV and should be tested in conjunction with a PAP screen.
If collected utilizing a Surepath vial, the collection and specimen preparation of this test was developed, and its performance characteristics determined by [employer]. It has not been cleared or approved by the U.S. Food and Drug Administration (FDA). The FDA has determined that such clearance or approval is not necessary.
This assay has been performed at [facility], [address] [facility], [place]. [address]. Performing Location LABORATORY [address] [facility] [address]
--- OUTSIDE RECORDS SUMMARY | 2023-10-17 06:37 | External Medical Summary | Summary of Care ---
Author Name Unknown Organization [facility] Address [address] [place] [address] Phone [phone] Care Team Providers Care Math And Physics Instructor Name Role Phone Phoenix Barker PA-C Primary Care Provide r Reason for Visit * Reason Comments [facility] New Abnormal US and CT s can Encounter Details Date Type Department Care Team (Late st Contact Info) Description 10/02/2023 10:30 AM EST Office Visit Gynecology/Obstetri [facility] [address] [place] [address] Raissa Shay MD [address], [place] [id number] Generalized weakness*; Encounter for gynecological examination without abnormal finding Allergies Active Allergy Reactions Criticality Noted Date Comments Ferric Derisomaltose 12/30/2022 SOB and lost consciousness documented as of this encounter (statuses as of 10/04/2023) Medications Medication Sig Dispensed Refills Start Date End Date Status Furosemide 5 MG OR TABS Take by mouth daily. 0 Active Roller Walker Use as directed 1 Each 0 08/26/2023 Active Folic Acid 1 MG Oral Tablet Take 1 Tablet by mouth in the morning. 30 Tablet 0 09/13/2023 Active documented as of this encounter (statuses as of 10/04/2023) Active Problems Problem Noted Date Diagnosed Date Pyoderma gangrenosum 09/06/2023 Malnutrition of moderate degree 08/19/2023 Intermittent complete atrioventricular block Lymphedema 08/18/2023 Venous stasis ulcers of both lower extremities 0 08/18/2023 Generalized weakness 08/18/2023 Thrombocytosis 08/18/2023 Celiac disease 08/18/2023 Other iron deficiency anemias 12/20/2022 Anemia 12/19/2022 documented as of this encounter (statuses as of 10/04/2023) Resolved Problems Problem Noted Date Diagnosed Date Resolved Date Abnormal CT of the abdomen 09/07/2023 0 09/12/2023 Anemia due to chronic blood loss 08/21/2023 08/26/2023 Acute pharyngitis 08/18/2023 09/12/2023 documented as of this encounter (statuses as of 10/04/2023) Social History Tobacco Use Types Packs/Day Years Used Date Smoking Tobacco: Never Smokeless Tobacco: Never Tobacco Cessation:Counseling Given: Not Answered Alcohol Use Standard Drinks/Week Comments Never 0 (1 standard drink = 0.6 oz pur e alcohol) Sex and Gender Information Value Date Recorded Sex Assigned at Not on file Gender Identity Not on file Sexual Orientation Not on file Job Start Date Occupation Industry Not on file Not on file Not on file documented as of this encounter Last Filed Vital Signs Vital Sign Reading Time Taken Comments Blood Pressure 84/56 10/02/2023 10:30 AM EST Pulse - - Temperature 37.1 C (98.7 F) 10/02/2023 10:[address] Respiratory Rate - - Oxygen Saturation - - Inhaled Oxygen Concentration - - Weight - - Height - - Body Mass Index - - documented in this encounter Functional Status Functional Status Response [...] Yes 09/06/2023 documented as of this encounter Progress Notes * Raissa Shay MD - 10/02/2023 2:47 PM EST Patient Name: Soco Guevara Patient referred by Self Reason for Visit : Generalized body weekness (HPI): Patient is a 48-year-old who presents for evaluation of generalized body weakness. Patient is accompanied by her who provides most of the history. Patient's states thatabout 3 months ago, precisely on July 07, 2023, patient suddenly became very weak. Patient has experienced weakness in her legs. He reports that the patient developed bilateral leg ulcers. She also noted to have had rectal bleeding, although initially it was unsure if the bleeding was vaginal . She relates a weight loss of about 8 lbs. Patient does have bilateral leg ulcers. She endorses abdominal pain. Patient had a CT scan of the abdomen and pelvis which showed uterus and nonenlarged ovaries bilaterally. CT of the abdomen also revealed Eevidence of enteritis, infectious or inflammatory, with diffuse small bowel wall thickening. Past medical history: No past medical history on file. Past surgical history: Past Surgical History: Procedure Laterality Date COLONOSCOPY, DIAGNOSTIC (RECTUM) N/A 01/13/2023 poor prep/diverticulosis/hemorrhoids/COLONOSCOPY FLEXIBLE PROXIMAL DIAGNOSTIC performed by Tyler Perez MD at ENDOSCOPY [facility] EGD, FLEXIBLE, DIAGNOSTIC N/A 01/13/2023 esophageal mucosal changes secondary to EOE/biopsies show celiac disease/ESOPHAGOGASTRODUODENOSCOPY(EGD), FLEXIBLE, TRANSORAL, DIAGNOSTIC performed by Tyler Perez MD at ENDOSCOPY [facility] EGD, FLEXIBLE, DIAGNOSTIC N/A 09/11/2023 biopsies show celiac disease/ESOPHAGOGASTRODUODENOSCOPY (EGD), FLEXIBLE, TRANSORAL, DIAGNOSTIC performed by Teri Graham MD at ENDOSCOPY [facility] Obstetrical history: OB History No obstetric history on file. Family history: Family History Problem Relation Age of Onset Colon cancer Grandfather (Maternal) Social history: Social History Tobacco Use Smoking status: Never Smokeless tobacco: Never Substance Use Topics Alcohol use: Never Vaping/E-Cigarette Use Vaping/E-Cigarette Use Never User Vaping/E-Cigarette Substances Vaping/E-Cigarette Devices Allergy: Review of patient's allergies indicates: Allergen Reactions Monoferric [Ferric Derisomaltose] SOB and lost consciousness ROS: as in the HPI LABS: Results for orders placed or performed during the hospital encounter of 09/06/23 RESPIRATORY PATHOGEN PANEL, PCR Result Value Ref Range Adenovirus by PCR Negative Negative Coronavirus 229E by PCR Negative Negative Coronavirus HKU1 by PCR Negative Negative Coronavirus NL63 by PCR Negative Negative Coronavirus OC43 by PCR Negative Negative Coronavirus SARS-CoV-2 by PCR Negative Negative Human Metapneumovirus by PCR Negative Negative Rhinovirus/Enterovirus by PCR Negative Negative Influenza A Virus by PCR Negative Negative Influenza B Virus by PCR Negative Negative Parainfluenza Virus 1 by PCR Negative Negative Parainfluenza Virus 2 by PCR Negative Negative Parainfluenza Virus 3 by PCR Negative Negative Parainfluenza Virus 4 by PCR Negative Negative Respiratory Syncytial Virus by PCR Negative Negative Bordetella pertussis by PCR Negative Negative Chlamydia pneumoniae by PCR Negative Negative Mycoplasma pneumoniae by PCR Negative Negative Bordetella parapertussis by PCR Negative Negative BLOOD GAS, VENOUS Result Value Ref Range Temperature 37.0 C pH, Venous 7.390 7.320 - 7.430 units pCO2, Venous 43.4 40.0 - 60.0 mmHg pO2, Venous 31.7 25.0 - 50.0 mmHg Base Excess, Venous 1.0 -2.0 - 2.0 mmol/L Hemoglobin, Whole Blood 13.9 12.0 - 15.3 g/dL Oxyhemoglobin, Venous 48.7 40.0 - 85.0 % total Hgb Carboxyhemoglobin, Whole Blood 0.8 <=1.5 % total Hgb Methemoglobin, Whole Blood 0.8 <=1.5 % total Hgb Reduced Hemoglobin, Venous 49.7 % total Hgb O2 Content, Venous 9.5 7.0 - 18.0 %vol Bicarbonate, Whole Blood 25.7 23.0 - 31.0 mmol/L HEPATIC FUNCTION PANEL Result Value Ref Range Albumin 3.3 (L) 3.8 - 5.0 g/dL AST 33 10 - 35 U/L Alkaline Phosphatase 142 (H) 35 - 130 U/L ALT 27 10 - 35 U/L Bilirubin, Total 0.2 <=1.2 mg/dL Bilirubin, Direct <0.2 0.0 - 0.3 mg/dL Protein 6.8 6.0 - 8.3 g/dL LACTATE WITH REFLEX IF ABNORMAL Result Value Ref Range Lactate 1.7 0.4 - 2.0 mmol/L PT INR Result Value Ref Range Prothrombin Time 13.7 11.6 - 15.2 seconds INR 1.1 0.8 - 1.2 TROPONIN T, HIGH SENSITIVITY Result Value Ref Range Troponin T, High Sensitivity <6 <=14 ng/L CBC Result Value Ref Range WBC 20.03 (H) 4.00 - 10.80 K/uL RBC 4.84 3.85 - 5.15 M/uL HGB 13.7 12.0 - 15.3 g/dL HCT 42.2 36.0 - 45.2 % MCV 87.2 81.5 - 97.5 fL MCH 28.3 27.0 - 34.0 pg MCHC 32.5 32.0 - 36.0 g/dL RDW 16.8 11.5 - 15.5 % PLT 1,061 (HH) 140 - 400 K/uL MPV 8.8 6.6 - 11.1 fL nRBCs 0 <=0 /100 WBCs DIFFERENTIAL, AUTOMATED Result Value Ref Range WBC 20.03 (H) 4.00 - 10.80 K/uL Neutrophils % 78.0 (H) 40.0 - 75.0 % Lymphocytes % 11.0 (L) 18.0 - 42.0 % Monocytes % 8.5 1.0 - 11.0 % Eosinophils % 1.1 0.0 - 6.0 % Basophils % 0.7 0.0 - 2.0 % Immature Granulocytes % 0.7 0.0 - 2.0 % Absolute Neutrophils 15.59 (H) 1.80 - 7.70 K/uL Absolute Lymphocytes 2.21 1.00 - 4.80 K/ul Absolute Monocytes 1.70 (H) 0.00 - 1.10 K/uL Absolute Eosinophils 0.23 0.00 - 0.70 K/uL Absolute Basophils 0.15 0.00 - 0.20 K/uL Absolute Immature Granulocytes 0.15 0.00 - 0.20 K/uL URINALYSIS, REFLEX TO CULTURE (CUP ONLY) Result Value Ref Range Urinalysis, Reflex to Culture Specimen Specimen collected and received URINALYSIS, REFLEX TO CULTURE Result Value Ref Range Color, Urine Yellow Light Yellow, Yellow, Dark Yellow Clarity, Urine Clear Clear Glucose, Urine Negative Negative mg/dL Bilirubin, Urine Negative Negative Ketone, Urine Negative Negative mg/dL Specific Beaver, Urine 1.025 1.003 - 1.030 Blood, Urine Negative Negative pH, Urine 6.5 5.0 - 7.5 Units Protein, Urine Negative Negative mg/dL Urobilinogen, Urine 0.2 0.2, 1.0 mg/dL Nitrite, Urine Negative Negative Esterase, Urine Trace (A) Negative RBC, Urine 0-2 0 - 2 /HPF WBC, Urine 3-5 (A) 0 - 2 /HPF Bacteria, Urine 26-50 (A) 0 - 25 /HPF Culture, Urine CULTURE, BLOOD Result Value Ref Range Blood Culture Growth No growth CULTURE, BLOOD Result Value Ref Range Blood Culture Growth No growth MONONUCLEOSIS HETEROPHILE ANTIBODY Result Value Ref Range Mononucleosis Antibody Negative Negative LYME DISEASE ANTIBODY SCREEN Result Value Ref Range Lyme Disease Antibody Screen Negative Negative BASIC METABOLIC PANEL Result Value Ref Range BUN 6 6 - 20 mg/dL Creatinine 0.4 (L) 0.5 - 1.0 mg/dL Estimated Glomerular Filtration Rate >90 >=60 mL/min Sodium 138 135 - 146 mmol/L Potassium 3.5 3.5 - 5.1 mmol/L Chloride 102 98 - 107 mmol/L CO2 21 (L) 22 - 32 mmol/L Anion Gap 15 7 - 15 mmol/L Glucose 87 70 - 120 mg/dL Calcium 9.1 8.4 - 10.2 mg/dL MAGNESIUM Result Value Ref Range Magnesium 2.2 1.5 - 2.6 mg/dL PHOSPHORUS Result Value Ref Range Phosphorus 3.8 2.5 - 4.8 mg/dL CULTURE, URINE, QUANTITATIVE Specimen: Urine, Clean Catch Result Value Ref Range Culture Growth No significant growth BASIC METABOLIC PANEL Result Value Ref Range BUN 5 (L) 6 - 20 mg/dL Creatinine 0.3 (L) 0.5 - 1.0 mg/dL Estimated Glomerular Filtration Rate >90 >=60 mL/min Sodium 139 135 - 146 mmol/L Potassium 3.6 3.5 - 5.1 mmol/L Chloride 106 98 - 107 mmol/L CO2 21 (L) 22 - 32 mmol/L Anion Gap 12 7 - 15 mmol/L Glucose 100 70 - 120 mg/dL Calcium 8.4 8.4 - 10.2 mg/dL CBC Result Value Ref Range WBC 15.44 (H) 4.00 - 10.80 K/uL RBC 4.23 3.85 - 5.15 M/uL HGB 11.9 (L) 12.0 - 15.3 g/dL HCT 36.4 36.0 - 45.2 % MCV 86.1 81.5 - 97.5 fL MCH 28.1 27.0 - 34.0 pg MCHC 32.7 32.0 - 36.0 g/dL RDW 16.5 11.5 - 15.5 % PLT 924 (H) 140 - 400 K/uL MPV 8.9 6.6 - 11.1 fL nRBCs 0 <=0 /100 WBCs MAGNESIUM Result Value Ref Range Magnesium 2.1 1.5 - 2.6 mg/dL PHOSPHORUS Result Value Ref Range Phosphorus 3.5 2.5 - 4.8 mg/dL IRON SCREEN, INCLUDING TIBC Result Value Ref Range Iron 18 (L) 33 - 151 ug/dL Iron Binding Capacity 248 (L) 250 - 425 ug/dL Transferrin Saturation Percent 7 (L) 15 - 55 % FERRITIN Result Value Ref Range Ferritin 47 13 - 150 ng/mL BASIC METABOLIC PANEL Result Value Ref Range BUN 5 (L) 6 - 20 mg/dL Creatinine 0.4 (L) 0.5 - 1.0 mg/dL Estimated Glomerular Filtration Rate >90 >=60 mL/min Sodium 138 135 - 146 mmol/L Potassium 4.1 3.5 - 5.1 mmol/L Chloride 104 98 - 107 mmol/L CO2 24 22 - 32 mmol/L Anion Gap 10 7 - 15 mmol/L Glucose 92 70 - 120 mg/dL Calcium 8.7 8.4 - 10.2 mg/dL CBC Result Value Ref Range WBC 18.17 (H) 4.00 - 10.80 K/uL RBC 4.47 3.85 - 5.15 M/uL HGB 12.0 12.0 - 15.3 g/dL HCT 38.8 36.0 - 45.2 % MCV 86.8 81.5 - 97.5 fL MCH 26.8 27.0 - 34.0 pg MCHC 30.9 32.0 - 36.0 g/dL RDW 16.5 11.5 - 15.5 % PLT 978 (H) 140 - 400 K/uL MPV 9.3 6.6 - 11.1 fL nRBCs 0 <=0 /100 WBCs MAGNESIUM Result Value Ref Range Magnesium 2.3 1.5 - 2.6 mg/dL PHOSPHORUS Result Value Ref Range Phosphorus 3.8 2.5 - 4.8 mg/dL HCG QUALITATIVE, URINE Result Value Ref Range HCG Qualitative, Urine Negative Negative CLOSTRIDIUM DIFFICILE, PCR Result Value Ref Range Stool Consistency Semi-formed Clostridium difficile Result Negative Negative. No C. difficile toxin B gene DNA detected by PCR (Amplified Probe). OVA AND PARASITES, CONCENTRATE AND PERMANENT SMEAR Result Value Ref Range Result/Comment SEE BELOW GASTROINTESTINAL PATHOGEN PANEL PCR Result Value Ref Range Campylobacter group by PCR Negative Negative Salmonella species by PCR Negative Negative Shigella species by PCR Negative Negative Vibrio group by PCR Negative Negative Yersinia enterocolitica by PCR Negative Negative Shiga Toxin 1 Gene by PCR Negative Negative Shiga Toxin 2 Gene by PCR Negative Negative Norovirus by PCR Negative Negative Rotavirus by PCR Negative Negative GASTROINTESTINAL PATHOGEN PANEL CULTURE Result Value Ref Range Culture Growth No Aeromonas species or Plesiomonas species isolated. CRP (INFLAMMATORY MARKER) Result Value Ref Range CRP (Inflammatory Marker) 23 (H) <=5 mg/L ERYTHROCYTE SEDIMENTATION RATE (ESR) Result Value Ref Range ESR 52 (H) <20 mm/hour GGTP Result Value Ref Range GGTP 43 (H) <=40 U/L PREALBUMIN Result Value Ref Range Prealbumin 18 18 - 45 mg/dL CK Result Value Ref Range CK 27 26 - 192 U/L GROUP A STREP RAPID THROAT Result Value Ref Range Group A Strep Result Negative Negative GROUP A STREP PCR Result Value Ref Range Group A Strep PCR Result Negative Negative. No Group A Streptococcus detected by PCR (amplified probe). BASIC METABOLIC PANEL Result Value Ref Range BUN 9 6 - 20 mg/dL Creatinine 0.4 (L) 0.5 - 1.0 mg/dL Estimated Glomerular Filtration Rate >90 >=60 mL/min Sodium 139 135 - 146 mmol/L Potassium 3.9 3.5 - 5.1 mmol/L Chloride 102 98 - 107 mmol/L CO2 25 22 - 32 mmol/L Anion Gap 12 7 - 15 mmol/L Glucose 165 (H) 70 - 120 mg/dL Calcium 9.8 8.4 - 10.2 mg/dL CBC Result Value Ref Range WBC 15.47 (H) 4.00 - 10.80 K/uL RBC 5.27 3.85 - 5.15 M/uL HGB 14.9 12.0 - 15.3 g/dL HCT 46.1 (H) 36.0 - 45.2 % MCV 87.5 81.5 - 97.5 fL MCH 28.3 27.0 - 34.0 pg MCHC 32.3 32.0 - 36.0 g/dL RDW 16.7 11.5 - 15.5 % PLT 1,158 (HH) 140 - 400 K/uL MPV 8.8 6.6 - 11.1 fL nRBCs 0 <=0 /100 WBCs MAGNESIUM Result Value Ref Range Magnesium 2.3 1.5 - 2.6 mg/dL PHOSPHORUS Result Value Ref Range Phosphorus 3.8 2.5 - 4.8 mg/dL BASIC METABOLIC PANEL Result Value Ref Range BUN 9 6 - 20 mg/dL Creatinine 0.4 (L) 0.5 - 1.0 mg/dL Estimated Glomerular Filtration Rate >90 >=60 mL/min Sodium 141 135 - 146 mmol/L Potassium 4.2 3.5 - 5.1 mmol/L Chloride 105 98 - 107 mmol/L CO2 22 22 - 32 mmol/L Anion Gap 14 7 - 15 mmol/L Glucose 170 (H) 70 - 120 mg/dL Calcium 9.5 8.4 - 10.2 mg/dL CBC Result Value Ref Range WBC 31.30 (H) 4.00 - 10.80 K/uL RBC 4.64 3.85 - 5.15 M/uL HGB 13.2 12.0 - 15.3 g/dL HCT 40.0 36.0 - 45.2 % MCV 86.2 81.5 - 97.5 fL MCH 28.4 27.0 - 34.0 pg MCHC 33.0 32.0 - 36.0 g/dL RDW 16.7 11.5 - 15.5 % PLT 1,110 (HH) 140 - 400 K/uL MPV 9.0 6.6 - 11.1 fL nRBCs 0 <=0 /100 WBCs MAGNESIUM Result Value Ref Range Magnesium 2.4 1.5 - 2.6 mg/dL PHOSPHORUS Result Value Ref Range Phosphorus 3.7 2.5 - 4.8 mg/dL BASIC METABOLIC PANEL Result Value Ref Range BUN 11 6 - 20 mg/dL Creatinine 0.4 (L) 0.5 - 1.0 mg/dL Estimated Glomerular Filtration Rate >90 >=60 mL/min Sodium 138 135 - 146 mmol/L Potassium 4.4 3.5 - 5.1 mmol/L Chloride 101 98 - 107 mmol/L CO2 25 22 - 32 mmol/L Anion Gap 12 7 - 15 mmol/L Glucose 167 (H) 70 - 120 mg/dL Calcium 9.3 8.4 - 10.2 mg/dL CBC Result Value Ref Range WBC 25.97 (H) 4.00 - 10.80 K/uL RBC 4.73 3.85 - 5.15 M/uL HGB 13.3 12.0 - 15.3 g/dL HCT 41.1 36.0 - 45.2 % MCV 86.9 81.5 - 97.5 fL MCH 28.1 27.0 - 34.0 pg MCHC 32.4 32.0 - 36.0 g/dL RDW 16.6 11.5 - 15.5 % PLT 1,096 (HH) 140 - 400 K/uL MPV 9.3 6.6 - 11.1 fL nRBCs 0 <=0 /100 WBCs MAGNESIUM Result Value Ref Range Magnesium 2.5 1.5 - 2.6 mg/dL PHOSPHORUS Result Value Ref Range Phosphorus 3.8 2.5 - 4.8 mg/dL BASIC METABOLIC PANEL Result Value Ref Range BUN 14 6 - 20 mg/dL Creatinine 0.4 (L) 0.5 - 1.0 mg/dL Estimated Glomerular Filtration Rate >90 >=60 mL/min Sodium 137 135 - 146 mmol/L Potassium 4.3 3.5 - 5.1 mmol/L Chloride 99 98 - 107 mmol/L CO2 24 22 - 32 mmol/L Anion Gap 14 7 - 15 mmol/L Glucose 162 (H) 70 - 120 mg/dL Calcium 9.3 8.4 - 10.2 mg/dL *Note: Due to a large number of results and/or encounters for the requested time period, some results have not been displayed. A complete set of results can be found in Results Review. PROCEDURE INFORMATION: Exam: CT Abdomen And Pelvis With Contrast Exam date and time: 09/06/2023 6:05 PM Age: 48 years old Clinical indication: Other: Elevated white count, generalized weakness TECHNIQUE: Imaging protocol: Computed tomography of the abdomen and pelvis with contrast. Radiation optimization: All CT scans at this facility use at least one of these dose optimization techniques: automated exposure control; mA and/or kV adjustment per patient size (includes targeted exams where dose is matched to clinical indication); or iterative reconstruction. Contrast material: OPTI 350; Contrast volume: 100 ml; Contrast route: INTRAVENOUS (IV); COMPARISON: CT ABD/PELVIS W IV CONTRAST - WO ORAL CONTRAST 08/19/2023 9:25 AM FINDINGS: Limitations: Evaluation is limited by motion degradation. Lungs: Bilateral atelectasis. Liver: Unremarkable. Gallbladder and bile ducts: Unremarkable. Pancreas: Unremarkable. Spleen: Unremarkable. Adrenal glands: Unremarkable. Kidneys and ureters: Unremarkable. Stomach and bowel: Evaluation of the GI tract is limited by lack of distension and retained stool. There is no evidence of bowel obstruction. Evidence of enteritis, infectious or inflammatory, with diffuse small bowel wall thickening. The small bowel is moderately distended with fluid. The colon is moderately distended with air and stool. Appendix: The appendix is not reliably identified. Intraperitoneal space: No free fluid. No free air. Vasculature: Mild abdominopelvic atherosclerotic calcifications. Lymph nodes: No significant abdominopelvic lymphadenopathy. Urinary bladder: Unremarkable for degree of distension. Reproductive: The uterus and bilateral nonenlarged ovaries are identified. Bones/joints: T8 hemangioma. Soft tissues: Unremarkable. IMPRESSION IMPRESSION: Evidence of enteritis, infectious or inflammatory, with diffuse small bowel wall thickening. The small bowel is moderately distended with fluid. PHYSICAL EXAMINATION Vital signs Filed Vitals: 10/02/23 1030 BP: 84/56 Temp: 37.1 C (98.7 F) Clinical Laboratory Director Documentation Patient offered river crossing supervisor and accepted. Name of river crossing supervisor: Bere Clayton LPN Well developed. Well nourished white female in no acute distress HEENT : WNL LUNG: CTA bilat. No wheezes, crackles, or rales HEART; S-1, S-2; Regular ,rythm and rate . No murmurs GI: Soft.. Non-tender. Non-distended.No guarding,no rebound tenderness. No Hernias PELVIC: External genitalia and vagina anatomy are atrophic, No significant vulvar lesions, No significant vaginal discharge, Cervix is atrophic, Uterus is normal size, shape, and consistency, Adnexeanormal bilaterally. No abnormal pelvic masses, Pap obtained with broom and brush Neurologic: grossly intact Extremity: No Cyanoses, clubbing or edema. No lesions on either extremeties Psych: Alert, awake and oriented X 3. Normal gait A/P (R53.1) Generalized weakness (primary encounter diagnosis) Plan: Patient was advised advised that based on history and physical examination and imaging, it is unlikely that the cause of her generalized weakness is gynecological in origin. (Z01.419) Encounter for routine gynecological examination Plan: CONTINUITY PERSON PAP SCREEN, CONTINUITY PERSON PAP SCREEN, HUMAN PAPILLOMA VIRUS, PROBE Patient has has never had a Pap smear. Pap smear was done. Raissa Shay MD documented in this encounter Nursing Notes * Bere Clayton LPN - 10/02/2023 10:23 AM EST Chief Complaint Patient presents with [facility] New Abnormal US and CT scan Pt is here for a consult for a abnormal US and CT scan done. US done 09/06/2023: IMPRESSION: 1. Nonspecific diffuse borderline gallbladder wall thickening measuring 3-4 mm, may be due to incomplete distension. 2. Small gallbladder polyps measuring up to [address] done 09/06/2023: IMPRESSION: Evidence of enteritis, infectious or inflammatory, with diffuse small bowel wall thickening. The small bowel is moderately distended with fluid. Pt states she had some bleeding last weekend but feels it may have been coming from her rectum rather than her vagina but they are wanting to roll this out as pt's states she has suddenly gotten weak and he is worried as he states everything has come back normal from her hospital stays. Bere Clayton LPN documented in this encounter Plan of Treatment Upcoming Encounters Date Type Department Care Team (Latest Contact Info) Description 11/16/2023 11:30 AM EDT Hospital Encounter [facility] End[facility] [address] [place] [address] Tyler Perez MD [address] [place] [id number] 11/16/2023 11:30 AM EDT - 11/16/2023 12:00 PM EDT Surgery [facility] Endoscopy [address] [place] [address] Tyler Perez MD [address] [place] [id number] ESOPHAGOGASTRODUODENOSCOPY (EGD), FLEXIBLE, TRANSORAL, DIAGNOSTIC Pending Results Name Type Priority Associated Diagnoses Date /Time CONTINUITY PERSON PAP SCREEN Pathology Routine Encounter for gynecological examination without abnormal finding 10/02/2023 10:52 AM EST HUMAN PAPILLOMA VIRUS, PROBE Lab Routine Encounter for gynecological examination without abnormal finding 10/02/2023 10:52 AM EST Scheduled Orders Name Type Priority Associated Diagnoses Orde r Schedule CONTINUITY PERSON PAP SCREEN Pathology Routine Encounter for gynecological examination without abnormal finding Expected: 10/02/2023, Expires: 10/30/2024 Scheduled Procedures Name Priority Associated Diagnoses Date/Ti [...] Not on filedocumented as of this encounter Visit Diagnoses Diagnosis Generalized weakness- Primary Other malaise and fatigue Encounter for gynecological examination without abnormal finding Routine gynecological examination Dysphagia Dysphagia, unspecified Abnormal findings on esophagogastroduodenoscopy (EGD) documented in this encounter Advance Directives Latest Code Status on File Code Status Date Activated Date Inactivated Comments Full Code 09/06/2023 8:11 PM 09/12/2023 6:02 PM This order reflects the patients wishes [...] Discussed due to patient's condition Care Teams Math And Physics Instructor Relationship Specialty Start Date End Date Phoenix Barker PA-C [facility] [place] [address] PCP - General Physician Commercial Cleaner 09/12/23 documented as of this encounter
--- OUTSIDE RECORDS SUMMARY | 2023-10-17 06:37 | External Medical Summary | Summary of Care ---
Author Name Unknown Organization [facility] Address [address] [facility] [place] [address] Phone [phone] Care Team Providers Care Green Chain Puller Name Role Phone Phoenix Barker PA-C Primary Care Provide r Encounter Details Date Type Department Care Team (Late st Contact Info) Description 09/26/2023 Telephone Gynecology/Obstetrics [facility] [address] [place] [address] Raissa Shay MD [address] [place] [address] Allergies Active Allergy Reactions Criticality [...] encounter Miscellaneous Notes * Telephone Encounter - Jessica Joyce RN - 09/27/2023 4:51 PM EST Pt called back and is coming at 1030 on 10/02 Will send to [facility] to change. * Telephone Encounter - Debra Power RN [...] Care Team (Latest Contact Info) Description 10/02/2023 10:00 AM EST Office Visit Gynecology/Obste trics [address] [place] [address] Raissa Shay MD [address] [place] [address] 11/16/2023 11:30 AM EDT Hospital Encounter ENDO GECL, Endoscopy [address] [facility] [address] [place] [phone] Tyler Perez MD [address] [place] [address] 11/16/2023 11:30 AM EDT - 11/16/2023 12:00 PM EDT Surgery ENDO GECL, Endoscopy [address] [facility] [address] [facility] [place] [phone] Tyler Perez MD [address] [place] [address] ESOPHAGOGASTRODUODENOSCOPY (EGD), FLEXIBLE, TRANSORAL, DIAGNOSTIC Scheduled Procedures [...] Discussed due to patient's condition Care Teams Green Chain Puller Relationship Specialty Start Date End Date Phoenix Barker PA-C [address] [place] [address] PCP - General Physician Senior Project Manager 09/12/23 documented as of this encounter
--- OUTSIDE RECORDS SUMMARY | 2023-10-17 06:37 | External Medical Summary | Summary of Care ---
Author Name Unknown Organization [facility] Address [address] [facility] [place] [address] Phone [phone] Care Team Providers Care Visiting Professor Name Role Phone Phoenix Barker PA-C Primary Care Provide r Encounter Details Date Type Department Care Team (Late st Contact Info) Description 09/26/2023 Telephone Gynecology/Obstetrics [facility] [address] [place] [address] Raissa Shay MD [address] [place] [address] Allergies Active Allergy Reactions Criticality [...] 12:30 PM EST Office Visit Gynecology/Obste trics [address] [address] Raissa Shay MD [address] [place] [phone] 11/16/2023 11:30 AM EDT Hospital Encounter ENDO GECL, Endoscopy [address] [phone] Tyler Perez MD [address] [place] [address] 11/16/2023 11:30 AM EDT - 11/16/2023 12:00 PM EDT Surgery ENDO GECL, Endoscopy [address] [phone] Tyler Perez MD [address] [place] [address] ESOPHAGOGASTRODUODENOSCOPY (EGD), FLEXIBLE, TRANSORAL, DIAGNOSTIC Scheduled Procedures [...] Discussed due to patient's condition Care Teams Visiting Professor Relationship Specialty Start Date End Date Phoenix Barker PA-C [facility] [address] [place] [address] PCP - General Physician Labor Utilization Superintendent 09/12/23 documented as of this encounter
--- OUTSIDE RECORDS SUMMARY | 2023-10-17 06:37 | External Medical Summary | Summary of Care ---
Author Name Unknown Organization [facility] Address [address] [facility] [place] [address] Phone [phone] Care Team Providers Care Wet Mixer Name Role Phone Phoenix Barker PA-C Primary Care Provide r Encounter Details Date Type Department Care Team (Late st Contact Info) Description 09/26/2023 Telephone Gynecology/Obstetrics [facility] [address] [place] [address] Raissa Shay MD [address] [place] [address] Allergies Active Allergy Reactions Criticality [...] 12:30 PM EST Office Visit Gynecology/Obste trics [address] [address] Raissa Shay MD [address] [place] [phone] 11/16/2023 11:30 AM EDT Hospital Encounter ENDO GECL, Endoscopy [address] [phone] Tyler Perez MD [address] [place] [address] 11/16/2023 11:30 AM EDT - 11/16/2023 12:00 PM EDT Surgery ENDO GECL, Endoscopy [address] [phone] Tyler Perez MD [address] [place] [address] ESOPHAGOGASTRODUODENOSCOPY (EGD), FLEXIBLE, TRANSORAL, DIAGNOSTIC Scheduled Procedures [...] Discussed due to patient's condition Care Teams Wet Mixer Relationship Specialty Start Date End Date Phoenix Barker PA-C [facility] [address] [place] [address] PCP - General Physician Access Liaison 09/12/23 documented as of this encounter
--- OUTSIDE RECORDS SUMMARY | 2023-10-17 06:38 | External Medical Summary | Summary of Care ---
Author Name Unknown Organization [facility] Address [address] [facility] [address] Phone [phone] Care Team Providers Care Station Baggage Agent Name Role Phone Phoenix Barker PA-C Primary Care Provide r Reason for Visit * Reason Comments Weakness, Generalized * Auth/Cert Specialty Diagnoses / Procedures Referred By Rowan t Referred To Contact Referral ID Status Reason Start Date Expiration Date Visits Re quested Visits Authorized [id number] Encounter Details Date Type Department Care Team (Latest Contact Info) Description 09/06/2023 2:21 PM EST - 09/12/2023 1:57 PM EST Hospital Encounter 4B [facility] 4th Floor [address], [place] [id number] Darien Koo MD [address], [place] [id number] Temi Phillips DO [address] [place] [id number] Mychal Hampton MD [address] [place], [place] [id number] Various: EKG,SBGI,KRAVS Discharge Disposition: Home - Self Care Allergies Active Allergy Reactions Criticality Noted Date Comments Ferric Derisomaltose 12/30/2022 SOB and lost consciousness documented as of this encounter (statuses as of 09/13/2023) Medications Medication Sig Dispensed Refills Start Date End Date Status Furosemide 5 MG OR TABS Take by mouth daily. 0 Active Midodrine HCl 5 MG Oral Tablet (Proamatine) Take 1 Tablet by mouth in the morning and 1 Tablet at noon and 1 Tablet before bedtime. 90 Tablet 0 08/26/2023 09/25/2023 Active Roller Walker Use as directed 1 Each 0 08/26/2023 Active Midodrine HCl 5 MG Oral Tablet (Proamatine) Take 1 Tablet by mouth in the morning and 1 Tablet at noon and 1 Tablet in the evening. 90 Tablet 0 08/26/2023 09/25/2023 Active Folic Acid 1 MG Oral Tablet Take 1 Tablet by mouth in the morning. 30 Tablet 0 09/13/2023 Active Sulfamethoxazole- Trimethoprim 200-40 MG/5ML Oral Suspension (Bactrim) 0 12/05/2022 09/12/2023 Discontinued Amoxicillin-Pot Clavulanate 875-125 MG Oral Tablet (Augmentin) Take 1 Tablet by mouth in the morning and 1 Tablet before bedtime. Do all this for 10 days. 20 Tablet 0 08/26/2023 09/12/2023 Discontinued Amoxicillin-Pot Clavulanate 875-125 MG Oral Tablet (Augmentin) Take 1 Tablet by mouth in the morning and 1 Tablet before bedtime. Do all this for 10 days. 20 Tablet 0 08/26/2023 09/12/2023 Discontinued documented as of this encounter (statuses as of 09/13/2023) Active Problems Problem Noted Date Diagnosed Date Pyoderma gangrenosum 09/06/2023 Malnutrition of moderate degree 08/19/2023 Intermittent complete atrioventricular block Lymphedema 08/18/2023 Venous stasis ulcers of both lower extremities 0 08/18/2023 Generalized weakness 08/18/2023 Thrombocytosis 08/18/2023 Celiac disease 08/18/2023 Other iron deficiency anemias 12/20/2022 Anemia 12/19/2022 documented as of this encounter (statuses as of 09/13/2023) Resolved Problems Problem Noted Date Diagnosed Date Resolved Date Abnormal CT of the abdomen 09/07/2023 0 09/12/2023 Anemia due to chronic blood loss 08/21/2023 08/26/2023 Acute pharyngitis 08/18/2023 09/12/2023 documented as of this encounter (statuses as of 09/13/2023) Social History Tobacco Use Types Packs/Day Years [...] Sign Reading Time Taken Comments Blood Pressure 105/70 09/12/2023 11:56 AM EST Pulse 81 09/12/2023 11:56 AM EST Temperature 37.5 C (99.5 F) 09/12/2023 1 1:56 AM EST Notified nurse Dora via Sabael Text. Respiratory Rate 16 09/12/2023 11:5 6 AM EST Oxygen Saturation 95% 09/12/2023 11: 56 AM EST Inhaled Oxygen Concentration - - Weight 51.8 kg (114 lb 3.2 oz) 09/11/2023 5:15 AM EST Height 162.6 cm (5' 4.02") 09/06/2023 8 :46 PM EST Body Mass Index 19.59 09/06/2023 8:46 PM EST documented in this encounter Functional Status Functional [...] Yes 09/06/2023 documented as of this encounter Discharge Summaries * Maxime Mo, DO - 09/12/2023 10:48 AM EST Images from the original note were not included. [address] [address] Admission Date: 09/06/2023 Discharge Date: 09/12/2023 RECOMMENDED TO DO FOR NEXT PROVIDER(S): Needs Heme/Onc and GI follow-up Started Folic Acid 1mg daily REASON(S) FOR MEDICATION CHANGE(S): Principal Problem: Generalized weakness Active Problems: Anemia Other iron deficiency anemias Thrombocytosis Celiac disease Malnutrition of moderate degree (HCC) Pyoderma gangrenosum Resolved Problems: Acute pharyngitis Abnormal CT of the abdomen DISPOSITION ON DISCHARGE: home Active Hospital Problems Diagnosis *Principal Diagnosis - Generalized weakness Pyoderma gangrenosum Malnutrition of moderate degree (HCC) Celiac disease Thrombocytosis Other iron deficiency anemias Anemia Resolved Hospital Problems Diagnosis Date Resolved Abnormal CT of the abdomen 09/12/2023 Acute pharyngitis 09/12/2023 ADMISSION HISTORY & PHYSICAL EXAM (focused): This is a 48 yo woman with history of suspected celiac disease, iron deficiency anemia, colitis, weakness. She was admitted here 2 weeks ago and at the time had severe leg wounds which are thought kevin pyoderma gangrenosum. Also, she was seen by GI and ID was consulted via ask-a-doc. She was discharged 10 days ago, and has only seen her pcp in follow up. GI follow up is apparently in November. Since discharge she has been very weak, and today looks weaker than she was 2 weeks ago, at time of prior admission. Leg wounds are improving as per . She returns today for generalized weakness. Two days ago, she fell at home. Also, stool test done on Aug 21, found yeast. BP: 102 mmHg/69 mmHg (09/06/231944) Pulse: 85 (09/06/231944) Temp: 36.78 C (09/06/23 1413) Temp Summary: Temp Min: 36.8 C (98.2 F) Max: 36.8 C (98.2 F) SpO2: 99 % (09/06/23 1413) O2 flow rate: Supplemental O2 Delivery: Constitutional: no acute distress HEENT: normocephalic, atraumatic; upper plate; posterior pharynx appears benign Eyes: sclera and conjunctiva normal Neck: supple, no noticeable adenopathy CV: normal rate and rhythm, no murmur, gallops or rub Chest: normal respiratory effort, lungs clear to auscultation Abdomen: soft, bowel sounds normal, no tenderness Extremities: legs wrapped in compressive gauze below the knees. Skin: warm, prior leg ulcers covered with gauze. Neuro: alert, oriented to person, place, very weak; speaks in a whisper. Face symmetric. Otherwise non-focal HOSPITAL COURSE (focused): Patient admitted for increasing weakness over the last several weeks. Also noted to be anemic and w/ B/L LE wounds consistent w/ pyoderma gangrenosum. Initial imaging showed concerns for enteritis. Patient was previously suspected to have celiac disease although serotyping was not consistent. Patient was evaluated by GI team and recommended completion of push enteroscopy w/ biopsies for further investigation. Patient was also noted to be malnourished and was evaluated by the nutrition team and proper supplementation was added to patient's regimen. Lower extremity wounds were evaluated during admission and were noted to be improving overall and routine wound care was continued. Additionally,patient was evaluated by Heme/Onc team and was started on Folic acid w/ plans for outpatient follow-up for further work-up and management. Folic acid was decreased due to increasing platelet count. Patient endorsed improved pharyngitis symptoms on 09/10. Diet order was modified to reflect being made NPO at midnight as required for enteroscopy to be done on 09/11. EGD was completed on 09/11/23 and did not reveal any significant abnormalities, biopsy results pending on discharge. As weakness had improved above baseline and diarrhea had resolved, patient and family endorsed desire to continue work-up as an outpatient w/ incorporation of home remedies into treatment plan as well. Patient was determined to be medially stable and was discharged on 09/12/23 w/ plans for appropriate outpatient follow-up. Day of Discharge Physical Exam: Physical Exam Vitals and nursing note reviewed. Constitutional: Comments: Appears weak, more alert and interactive than previous exams HENT: Head: Normocephalic and atraumatic. Right Ear: External ear normal. Left Ear: External ear normal. Nose: Nose normal. Mouth/Throat: Pharynx: Oropharynx is clear. Eyes: Extraocular Movements: Extraocular movements intact. Cardiovascular: Rate and Rhythm: Normal rate and regular rhythm. Heart sounds: Normal heart sounds. No murmur heard. Pulmonary: Effort: Pulmonary effort is normal. No respiratory distress. Breath sounds: Normal breath sounds. Abdominal: General: There is no distension. Palpations: Abdomen is soft. Tenderness: There is abdominal tenderness (Mild, Generalized). There is no guarding or rebound. Skin: General: Skin is warm and dry. Comments: B/L lower extremities w/ RAMOS wraps in place covering previous wounds inferior to knees. Neurological: General: No focal deficit present. Mental Status: She is alert and oriented to person, place, and time. Psychiatric: Mood and Affect: Mood normal. Operations & Procedures: EGD Complications: none significant Significant Lab and Imaging Results: Results for orders placed or performed during [...] Negative Ketone, Urine Negative Negative mg/dL Specific Colbert, Urine 1.025 1.003 - 1.030 Blood, Urine [...] gene DNA detected by PCR (Amplified Probe). GASTROINTESTINAL PATHOGEN PANEL PCR Result Value Ref [...] mg/dL CBC Result Value Ref Range WBC 27.47 (H) 4.00 - 10.80 K/uL RBC 4.69 3.85 - 5.15 M/uL HGB 13.4 12.0 - 15.3 g/dL HCT 41.1 36.0 - 45.2 % MCV 87.6 81.5 - 97.5 fL MCH 28.6 27.0 - 34.0 pg MCHC 32.6 32.0 - 36.0 g/dL RDW 16.8 11.5 - 15.5 % PLT 1,057 () 140 - 400 K/uL MPV 9.8 6.6 - 11.1 fL nRBCs 0 <=0 /100 WBCs *Note: Due to a large number of results and/or encounters for the requested time period, some results have not been displayed. A complete set of results can be found in Results Review. CT ABD/PELVIS W IV CONTRAST - WO ORAL CONTRAST Final Result PROCEDURE INFORMATION: Exam: CT Abdomen And Pelvis [...] small bowel is moderately distended with fluid. THIS DOCUMENT HAS BEEN ELECTRONICALLY SIGNED BY JAREN MITCHELL MD US ABDOMEN LIMITED Final Result PROCEDURE INFORMATION: Exam: US Abdomen, Limited; Right Upper Quadrant Exam date and time: 09/06/2023 3:56 PM Age: 48 years old Clinical indication: Other: Weakness, diarrhea; Additional info: Elevated alkaline phosphatase, generalized weakness TECHNIQUE: Imaging protocol: Real time ultrasound of the abdomen with image documentation. Limited exam focused on the right upper quadrant. COMPARISON: 1. US ABDOMEN COMPLETE 05/10/2019 3:[address] ABD/PELVIS W IV CONTRAST - WO ORAL CONTRAST 08/19/2023 9:25 AM FINDINGS: Liver: Unremarkable. Gallbladder: The gallbladder is incompletely distended. Nonspecific diffuse borderline gallbladder wall thickening measuring 3-4 mm, may be due to incomplete distension. Small gallbladder polyps measuring up to 4 mm. No evidence of cholelithiasis or pericholecystic free fluid. No sonographic Braun sign per synchro assembler report. Biliary ducts: No intrahepatic or extrahepatic biliary ductal dilation. Pancreas: The pancreas is diffusely hypoechoic, similar to prior. Mildly prominent pancreatic duct, also similar to prior. Right kidney: No right hydronephrosis. Extrarenal pelvis on the right is similar to prior. IMPRESSION IMPRESSION: 1. Nonspecific diffuse borderline gallbladder wall thickening measuring 3-4 mm, may be due to incomplete distension. 2. Small gallbladder polyps measuring up to 4 mm. THIS DOCUMENT HAS BEEN ELECTRONICALLY SIGNED BY JAREN MITCHELL MD XR ABDOMEN OBSTRUCT SERIES W CHEST 1 VIEW Final Result PROCEDURE INFORMATION: Exam: XR Complete Acute Abdomen Series Including Chest Exam date and time: 09/06/2023 3:10 PM Age: 48 years old Clinical indication: Other: Generalized weakness and pain TECHNIQUE: Imaging protocol: Radiologic exam. Complete acute abdomen series, including 2 or more views of the abdomen and a single view chest. COMPARISON: CT ABD/PELVIS W IV CONTRAST - WO ORAL CONTRAST 08/19/2023 9:25 AM FINDINGS: Lungs: No evidence of focal consolidation. Pleural spaces: No evidence of pleural effusion or pneumothorax. Heart/Mediastinum: Cardiomediastinal silhouette is not abnormally enlarged. Gastrointestinal tract: Nonobstructive bowel gas pattern. Intraperitoneal space: No evidence of free air under the diaphragm. Bones/joints: Unremarkable for age. Soft tissues: Unremarkable. IMPRESSION IMPRESSION: Nonobstructive bowel gas pattern. THIS DOCUMENT HAS BEEN ELECTRONICALLY SIGNED BY JAREN MITCHELL MD XR SHOULDER, 2 OR MORE VIEWS Final Result PROCEDURE INFORMATION: Exam: XR Left Shoulder Exam date and time: 09/06/2023 3:15 PM Age: 48 years old Clinical indication: Other: Generalized weakness and pain; Additional info: Fall with left shoulder pain TECHNIQUE: Imaging protocol: Radiologic exam of the left shoulder. Views: 2 or more views. COMPARISON: CT PET^[facility] (Adult) 01/20/2023 2:48 PM FINDINGS: Bones/joints: Bony structures are intact. Joint spaces are preserved. Soft tissues: Unremarkable. IMPRESSION IMPRESSION: No evidence of acute fracture or subluxation. THIS DOCUMENT HAS BEEN ELECTRONICALLY SIGNED BY JAREN MITCHELL MD CT HEAD/BRAIN WO CONTRAST Final Result PROCEDURE INFORMATION: Exam: CT Head Without Contrast Exam date and time: 09/06/2023 3:03 PM Age: 48 years old Clinical indication: Other: Fall, generalized weakness TECHNIQUE: Imaging protocol: Computed tomography of the head without contrast. Radiation optimization: All CT scans at this facility use at least one of these dose optimization techniques: automated exposure control; mA and/or kV adjustment per patient size (includes targeted exams where dose is matched to clinical indication); or iterative reconstruction. COMPARISON: CT HEAD/BRAIN WO CONTRAST 08/18/2023 7:56 PM FINDINGS: Brain: Normal. No hemorrhage. Unremarkable white matter. No mass effect. Cerebral ventricles: No ventriculomegaly. Paranasal sinuses: Visualized sinuses are unremarkable. No fluid levels. Mastoid air cells: Visualized mastoid air cells are well aerated. Bones/joints: Unremarkable. No acute fracture. Soft tissues: Unremarkable. IMPRESSION IMPRESSION: No acute intracranial abnormality. THIS DOCUMENT HAS BEEN ELECTRONICALLY SIGNED BY YOVANA KASPER MD CT C SPINE WO CONTRAST Final Result PROCEDURE INFORMATION: Exam: CT Cervical Spine Without Contrast Exam date and time: 09/06/2023 3:03 PM Age: 48 years old Clinical indication: Other: Neck pain; Trauma; Significant trauma TECHNIQUE: Imaging protocol: Computed tomography of the cervical spine without contrast. Radiation optimization: All CT scans at this facility use at least one of these dose optimization techniques: automated exposure control; mA and/or kV adjustment per patient size (includes targeted exams where dose is matched to clinical indication); or iterative reconstruction. COMPARISON: CT PET^[facility] (Adult) 01/20/2023 2:48 PM FINDINGS: Bones/joints: No acute fracture. Normal alignment. No significant disc bulge or herniation. No severe spinal canal stenosis. No significant neural foraminal narrowing. Lungs: Lung apices are normal. Soft tissues: Unremarkable. IMPRESSION IMPRESSION: No acute findings. THIS DOCUMENT HAS BEEN ELECTRONICALLY SIGNED BY YOVANA KASPER MD Results Pending at Discharge: Lab Results Pending at Discharge: ERYTHROCYTE SEDIMENTATION RATE (ESR) Routine OVA AND PARASITES, CONCENTRATE AND PERMANENT SMEAR Routine MEDICATION UPDATES AT DISCHARGE CONTINUE taking these medications but follow up with your Primary Care Physician (PCP). INSTRUCTIONS * amoxicillin-clavulanate 875-125 MG per Tablet Commonly known as: Augmentin Ask about: Should I take this medication? Notes to patient: antibiotic Take 1 Tablet by mouth in the morning and 1 Tablet before bedtime. Do all this for 10 days. * amoxicillin-clavulanate 875-125 MG per Tablet Commonly known as: Augmentin Ask about: Should I take this medication? Notes to patient: antibiotic Take 1 Tablet by mouth in the morning and 1 Tablet before bedtime. Do all this for 10 days. Furosemide 5 MG Tabs Commonly known as: Lasix Notes to patient: Used to get rid of extra fluid and treat high blood pressure (Diuretic/water pill) Take by mouth daily. * midodrine 5 MG Tablet Commonly known as: Proamatine Notes to patient: Used to treat low blood pressure Take 1 Tablet by mouth in the morning and 1 Tablet at noon and 1 Tablet before bedtime. * midodrine 5 MG Tablet Commonly known as: Proamatine Notes to patient: Used to treat low blood pressure Take 1 Tablet by mouth in the morning and 1 Tablet at noon and 1 Tablet in the evening. Roller Walker Misc Use as directed Sulfamethoxazole-Trimethoprim 200-40 MG/5ML suspension Commonly known as: Bactrim Notes to patient: antibiotic * This list has 4 medication(s) that are the same as other medications prescribed for you. Read thedirections carefully, and ask your doctor or other care provider to review them with you. SCHEDULED FOLLOW-UP: Future Appointments Appt Date/Time Provider Department 09/15/2023 2:30 PM Cart, Telemed [facility]; Rowdy Merchant MD Hematology/Oncology, [facility] 09/20/2023 1:00 PM Edelmira Valles DPM Wound Care, [facility] Other Information Indwelling Devices: LINES ALL Duration Peripheral Line Right Hand 22 Gauge 3 days Vital Signs (last recorded): Most Recent Systolic BP: 105 mmHg (09/12/23729) Most Recent Diastolic BP: 73 mmHg (09/12/23729) Pulse: 92 (09/12/23732) Resp: 16 (09/12/23729) Most Recent Temperature: 37.22 C (09/12/23729) Weight: 51.8 kg (114 lb 3.2 oz) (09/11/23514) SpO2: 96 % (09/12/23729) Allergies: Monoferric [ferric derisomaltose] Activity: as tolerated Diet: Gluten Free Diet Code Status: Full Code Condition on Discharge: stable Isolation status: None Cognition: normal HOSPITAL CONSULTS ORDERED: HEMATOLOGY CONSULT IP WOUND CONSULT IP GASTROENTEROLOGY CONSULT IP NUTRITION SERVICES (DIETITIAN) CONSULT IP ADULT PHYSICAL THERAPY CONSULT IP ADULT OCCUPATIONAL THERAPY CONSULT IP CARE MANAGEMENT CONSULT IP REFERRING PHYSICIAN: Ref: [id number] NO STREET ADDRESS AVAILABLE None (office) None (fax) PRIMARY CARE PROVIDER: PCP: LEONEL Price [facility] [address] [address] (office) [phone] (fax) Note: To contact a physician responsible for this patients hospital care, please call [facility] [phone]. Associated attestation - Mychal Hampton MD - 09/12/2023 3:13 PM EST I saw and evaluated the patient today. I have reviewed the trainee note and agree. I spent a total of 34 minutes coordinating, documenting, and providing care for this patient excluding time spent in the performance of separately billed services. documented in this encounter Discharge Instructions * Discharge Instr - AVS* OhnmachtMaxime, - 09/07/2023 11:35 AM EST Discharge Date: 09/12/23 The information below provides you with the instructions and the list of medications you need to betaking following discharge from the hospital. If you have any questions, please ask before leaving. If you have questions after leaving, you can reach us at the numbers below. YOUR HOSPITAL PROVIDERS: Discharging Provider: Mychal Hampton MD Provider Department: Hospital Medicine To reach this Provider Monday through Monday (8:00 AM to 4:30 PM) for any questions or test results: Call [phone] For after-hours concerns: Call [phone] and have your provider paged, or the provider instrumentation chemist for the Department of Hospital Medicine paged. Please note, the discharging provider will not be able to provide you with any medications refills.Please discuss these with your primary care provider. Worsening Symptoms: If you have new symptoms, or your symptoms get worse, please contact your Discharge Provider or Primary Care Provider (PCP). If these providers are not available, you can go to your local [facility] or [facility] Clinic during their business hours. In an EMERGENCY situation: Call [phone] or go to the nearest emergency room. A BRIEF SUMMARY OF YOUR HOSPITAL STAY: You came to the hospital with: complaint of Generalized Weakness Your main diagnosis at discharge was: Weakness Operations & Procedures performed: EGD Complications: none significant Inpatient test results that are pending at discharge: Yes, Intestinal Biopsy Results, ESR, Stool Ova and Parasites. You or your doctor will be contacted if there are significant abnormalities with these tests. Advance Directive Documented: Advance Directive Does the Patient have an Advance Directive? No YOUR FOLLOW UP APPOINTMENTS: Primary Care Provider Information: PCP: LEONEL Price [address] [facility] [address] (office) [phone] (fax) An appointment was requested with your PCP (LEONEL Price) within 7 days. (Please take this form to this visit with your primary care physician.) You need the following studies in the future: none INSTRUCTIONS: Diet: Previous diet Activity: As tolerated Additional Instructions: - Call your primary care physician or seek medical attention if you develop chest pain, shortness of breath, severe abdominal pain, repeated falls, dizziness, fevers, or worsening appearance of lowerextremity wounds. - Use caution when standing or walking since you are at an increased risk for falls documented in this encounter Progress Notes * Teri Graham MD - 09/12/2023 10:52 AM EST PROGRESS NOTE - Gastroenterology Service [facility] [address] Name: Soco Guevara Location: [facility] [id number] Date: 09/12/2023 Time: 10:53 AM SUBJECTIVE: The patient was seen and examined, chart reviewed. 48, female, Known Celiac (adheres to gluten free diet), pyoderma granulosum, on a gluten free diet. Trial of steroids for ? PMR - may have improved energy a little, but rheum consult recommended against as unlikely to have PMR. Pt ate regular consistency breakfast this morning. Able to ambulate to the w one assist. No N/V or abd pain today. Has had diarrhea which is improving. Stool for C-diff a, GI path (-); Ova pending. Today, better eye contact and talks directly to me, though also answers for her. ROS: Constitutional: (+) weakness Skin: (+) lower leg lesions, no jaundice or rashes Cardiac: No chest pain. Pulmonary: No cough or shortness of breath GI: Per HPI, otherwise negative. OBJECTIVE: Vital Signs Last 24 Hours: Systolic BP: Most Recent Systolic BP Av.3 mmHg Min: 99 mmHg Max: 116 mmHg Temperature: Most Recent Temperature Av.1 C Min: 36.61 C Max: 37.5 C Pulse: Pulse Av.7 Min: 44 Max: 92 Respirations: Resp Av.2 Min: 14 Max: 28 SpO2: SpO2 Av % Min: 94 % Max: 98 % Constitutional: (+) ill appearing, awake, alert, still very fatigued but improved HEENT: No conjunctival pallor, sclera anicteric. CV: Heart is regular without murmur, rub or gallop. Chest: Clear to percussion and auscultation. GI: Abdomen is soft, non-tender and bowel sounds normal. Extremities: no clubbing, cyanosis, or edema, otherwise grossly normal, warm, and dry, no edema, lower legs w dressings Neurology: Awake and alert. Oriented to person, place, and time. No asterixis present. LABS: Labs reviewed as indicated below: WBC 27, Hb 13, Hct 41, Plts 1057, Na 137, K 4.3, CL 96, CO2 29, BUN 14, Cr 0.7, glucose 117. LFTS, lipase normal except albumin low at 3.2. IMAGING: CTAP w IV 09/06/23: Evidence of enteritis, infectious or inflammatory, with diffuse small bowel wallthickening. The small bowel is moderately distended with fluid. US 09/06/23: 1. Nonspecific diffuse borderline gallbladder wall thickening measuring 3-4 mm, may be due to incomplete distension. 2. Small gallbladder polyps measuring up to 4 mm. IMPRESSION: Ms. Guevara is a 48 yr old female w Celiac who has chronic diarrhea, weakness, recent CT w enteritis/diffuse small bowel wall thickening. EGD/Small bowel enteroscopy were endoscopically normal yesterday, path is pending. RECOMMENDATIONS: Though some of her symptoms and imaging are suggestive of IBD, GI testing has not shown any evidence of IBD. If path normal and symptoms worsen, then would consider dedicated small bowel imaging to rule out any small bowel Crohn's. Small bowel series would be the most cost effective imaging. Could be done as an IP or OP. Agree w OP hem/onc f/u: patelets >1000, WBC 27 (though some of the leukocytosis likely driven bytrial of solumedrol). Continue gluten free diet. Nutrition documented review of diet. Regular consistency gluten free diet. I have discussed the case with my attending, Dr Graham. I have reviewed the advanced practitioner's documentation on the date of service referenced in note, and I agree with the pe and plan as documented Biopsy results will be sent to her via mail. * Shi, Myra Raymond [facility] - 09/12/2023 10:40 AM EST PHARMACY DISCHARGE MEDICATION RECONCILIATION REVIEW [address] [id number] Name: Soco Guevara Location: [facility] 4B-4013/W Date: 09/12/2023 Time: 10:40 AM This discharge medication reconciliation was reviewed by a pharmacist and no corrections or interventions were required. * Maxime Mo, - 09/11/2023 7:52 AM EST Images from the original note were not included. [facility] ENDO GECL/Endo INTERVAL HISTORY: No acute events reported overnight. Patient encountered resting comfortably in bed this AM. Has been NPO since 2400. Endorses improvement in strength and energy. Still has mildly sore throat. Denies chest pain, SOB, or N/V. Objective Physical Exam Most Recent Vital Signs: BP: 102 mmHg/69 mmHg (09/11/23723) Pulse: (see anesthesia) (09/11/23 09) Temp: 36.72 C (09/11/23723) Temp Summary: Temp Min: 36.3 C (97.3 F) Max: 37.4 C (99.3 F) SpO2: 96 % (09/11/23723) O2 flow rate: Supplemental O2 Delivery: Room Air, None (09/11/23723) Physical Exam Vitals and nursing note reviewed. Constitutional: Comments: Appears weak, more alert and interactive than previous exams HENT: Head: Normocephalic and atraumatic. Right Ear: External ear normal. Left Ear: External ear normal. Nose: Nose normal. Mouth/Throat: Pharynx: Oropharynx is clear. Eyes: Extraocular Movements: Extraocular movements intact. Cardiovascular: Rate and Rhythm: Normal rate and regular rhythm. Heart sounds: Normal heart sounds. No murmur heard. Pulmonary: Effort: Pulmonary effort is normal. No respiratory distress. Breath sounds: Normal breath sounds. Abdominal: General: There is no distension. Palpations: Abdomen is soft. Tenderness: There is abdominal tenderness (Generalized). There is no guarding or rebound. Skin: General: Skin is warm and dry. Comments: B/L lower extremities w/ RAMOS wraps in place covering previous wounds inferior to knees. Neurological: General: No focal deficit present. Mental Status: She is alert and oriented to person, place, and time. Psychiatric: Mood and Affect: Mood normal. Peripheral Line Right Hand 22 Gauge (Active) Number of days: 3 STUDIES: Encounter Orders Labs and other studies reviewed with pertinent findings noted below: Latest Reference Range & Units 09/11/23 04:33 Sodium 135 - 146 mmol/L 138 Potassium 3.5 - 5.1 mmol/L 4.4 Chloride 98 - 107 mmol/L 101 CO2 22 - 32 mmol/L 25 BUN 6 - 20 mg/dL 11 Creatinine 0.5 - 1.0 mg/dL 0.4 (L) Estimated Glomerular Filtration Rate >=60 mL/min >90 Anion Gap 7 - 15 mmol/L 12 Glucose 70 - 120 mg/dL 167 (H) Calcium 8.4 - 10.2 mg/dL 9.3 Magnesium 1.5 - 2.6 mg/dL 2.5 Phosphorus 2.5 - 4.8 mg/dL 3.8 CBC Rpt !! WBC 4.00 - 10.80 K/uL 25.97 (H) HGB 12.0 - 15.3 g/dL 13.3 HCT 36.0 - 45.2 % 41.1 MCV 81.5 - 97.5 fL 86.9 PLT 140 - 400 K/uL 1,096 (HH) No imaging results in the last 24 hours Assessment and Plan IMPRESSION : Principal Problem: Generalized weakness Active Problems: Anemia Other iron deficiency anemias Acute pharyngitis Thrombocytosis Celiac disease Malnutrition of moderate degree (HCC) Pyoderma gangrenosum Abnormal CT of the abdomen Resolved Problems: * No resolved hospital problems. * I have examined the patient and consistent with the dietitian's findings found malnutrition presentof Moderate (09/07/23 1314) degree. This is consistent with such due to Weight loss;Muscle loss (09/07/23 1314). I have also reviewed and agree with the dietitian's plan of care which include Oral nutritional supplement ordered/adjusted (09/07/23 1316). DIFFERENTIAL AND PLAN: Ms. Guevara is a 48 y/o female admitted for increasing weakness over the past several weeks. Of note, she was recently admitted approx 2 weeks prior to admission for B/L LE wounds thought to be pyoderma gangrenosum. Also noted to be anemic. GI, nutrition, and Heme/Onc consulted. GI w/ plans to perform push enteroscopy today w/ biopsies of duodenum and jejunum to further investigate ongoing weakness and GI upset/enteritis. Patient was also started on steroids for suspected PMR diagnosis and doesendorse some improvement in strength- will continue to monitor for improvement of symptoms and follow-up EGD results. Generalized Weakness Enteritis Malnutrition - GI consult - Push Enteroscopy to be completed Today w/ biopsies - Repeat stool studies negative - Nutrition following, appreciate recs - PT/OT/ consults - PT [facility]: 17, needs rolling walker - CM following, refused HH and rehab - CBC, BMP, Mag, Phos Daily - Monitor I/Os - Gluten Free Diet Pyoderma Gangrenosum - Wound consulted, continued wound care per recommendations Anemia - Heme/Onc consulted - Continue Folic Acid 1mg Daily - Referral for outpatient follow-up on discharge ?PMR - Continue Solumedrol 20mg q8h, monitor symptoms Esophageal Candidiasis - Continue Fluconazole 400mg daily, ending 09/13/23 - Strep Swab negative PHARMACOLOGIC VTE PROPHYLAXIS: hEParin CODE STATUS: Full Code EXPECTED DISCHARGE DATE: 09/11/2023 Patient was discussed with Dr. Hampton. The Teaching Physician reviewed or was physically present during the critical or ray portions of the service furnished by the resident. Maxime Mo DO Resident physician, PGY2 Associated attestation - Mychal Hampton MD - 09/11/2023 3:08 PM EST I saw and evaluated the patient today. I have reviewed the trainee note and agree. Egd unremarkable. Cont gluten free diet Stop diflucan * Camron Zeng DO - 09/10/2023 6:33 AM EST Images from the original note were not included. [facility] 4B-4013/W INTERVAL HISTORY: No significant events overnight. Patient to be made NPO at midnight tonight for enteroscopy on 09/11.Patient sitting upright in bed at time of evaluation. Patients appearance is subjectively improved.Patients voice sounds stronger. Patient denied CP and SOB. Endorsed improved pharyngitis. Objective Physical Exam Most Recent Vital Signs: BP: 101 mmHg/67 mmHg (09/10/23 08) Pulse: 57 (09/10/23799) Temp: 37 C (09/10/23799) Temp Summary: Temp Min: 36.7 C (98 F) Max: 37 C (98.6 F) SpO2: 97 % (09/10/23799) O2 flow rate: Supplemental O2 Delivery: Room Air, None (09/10/23840) Constitutional: Appears stronger than previous evaluations HEENT: normal: normocephalic, atraumatic; no masses, tenderness, or adenopathy CV: normal heart sounds, normal rate, normal rhythm, no murmur, intact distal pulses Chest: normal respiratory effort, breath sounds normal Abdomen: soft, normal bowel sounds, no tenderness, no rebound or guarding Extremities: Warm, dry. RAMOS wraps not removed. Neuro: alert, oriented to person, place, and time Psych: normal mood and affect Peripheral Line Right Hand 22 Gauge (Active) Number of days: 2 STUDIES: Encounter Orders Labs and other studies reviewed with pertinent findings noted below: Latest Reference Range & Units 09/09/23 06:18 09/10/23 05:16 Sodium 135 - 146 mmol/L 139 141 Potassium 3.5 - 5.1 mmol/L 3.9 4.2 Chloride 98 - 107 mmol/L 102 105 CO2 22 - 32 mmol/L 25 22 BUN 6 - 20 mg/dL 9 9 Creatinine 0.5 - 1.0 mg/dL 0.4 (L) 0.4 (L) Estimated Glomerular Filtration Rate >=60 mL/min >90 >90 Anion Gap 7 - 15 mmol/L 12 14 Glucose 70 - 120 mg/dL 165 (H) 170 (H) Calcium 8.4 - 10.2 mg/dL 9.8 9.5 Magnesium 1.5 - 2.6 mg/dL 2.3 2.4 Phosphorus 2.5 - 4.8 mg/dL 3.8 3.7 (L): Data is abnormally low (H): Data is abnormally high Latest Reference Range & Units 09/09/23 06:18 09/10/23 05:16 WBC 4.00 - 10.80 K/uL 15.47 (H) 31.30 (H) HGB 12.0 - 15.3 g/dL 14.9 13.2 HCT 36.0 - 45.2 % 46.1 (H) 40.0 MCV 81.5 - 97.5 fL 87.5 86.2 PLT 140 - 400 K/uL 1,158 (HH) 1,110 (HH) (HH): Data is critically high (H): Data is abnormally high Assessment and Plan IMPRESSION : Ms. Guevara is a 48 y/o female admitted for increasing weakness over the past several weeks. Of note, she was recently admitted approx 2 weeks ago for B/L LE wounds thought to be pyoderma gangrenosum. Also noted to be anemic. GI, nutrition, and Heme/Onc currently following patient. GI w/ plans to perform push enteroscopy Monday w/ biopsies of duodenum and jejunum to further investigate ongoing weakness and GI upset/enteritis. Patient was also started on steroids 2/ for suspected PMR diagnosis - will continue to monitor for improvement of symptoms. Principal Problem: Generalized weakness Active Problems: Anemia Other iron deficiency anemias Acute pharyngitis Thrombocytosis Celiac disease Malnutrition of moderate degree (HCC) Pyoderma gangrenosum Abnormal CT of the abdomen Resolved Problems: * No resolved hospital problems. * I have examined the patient and consistent with the dietitian's findings found malnutrition presentof Moderate (09/07/23 1314) degree. This is consistent with such due to Weight loss;Muscle loss (09/07/23 1314). I have also reviewed and agree with the dietitian's plan of care which include Oral nutritional supplement ordered/adjusted (09/07/23 1316). DIFFERENTIAL AND PLAN: Generalized Weakness Enteritis Malnutrition - GI consult - Push Enteroscopy to be completed Monday w/ biopsies - Stool Studies negative - C.diff negative - Nutrition following, appreciate recs - PT/OT/ consults - PT [facility]: 16, needs rolling walker - CM following, refused HH and rehab - CBC, BMP, Mag, Phos Daily - Monitor I/Os - Gluten Free Diet - NPO at Midnight Pyoderma Gangrenosum - Wound consulted, continued wound care per recommendations Anemia - Heme/Onc consulted - Continue Folic Acid 5mg Daily - Referral for outpatient follow-up on discharge ?PMR - Started Solumedrol 20mg q8h, monitor symptoms Esophageal Candidiasis - Continue Fluconazole 400mg daily, ending 09/13/23 - Strep Swab negative PHARMACOLOGIC VTE PROPHYLAXIS: hEParin CODE STATUS: Full Code EXPECTED DISCHARGE DATE: 09/11/2023 Patient was examined with Dr Hampton. Camron Zeng DO Associated attestation - Mychal Hampton MD - 09/10/2023 12:26 PM EST I saw and evaluated the patient today. I have reviewed the trainee note and agree. I spent a total of 52 minutes coordinating, documenting, and providing care for this patient excluding time spent in the performance of separately billed services. * Maxime Mo DO - 09/09/2023 6:45 AM EST Images from the original note were not included. [facility] 4B-4013/W INTERVAL HISTORY: No acute events reported overnight. Patient encountered resting comfortably in bed this AM w/ at bedside. Reports feeling improved from yesterday, although still weak. Tolerating PO intake. Did ambulate to bathroom w/ assistance of and did not become dizzy or lightheaded, but had weakness of B/L lower extremities. Denied chest pain or SOB. Still w/ mild soreness of throat. Objective Physical Exam Most Recent Vital Signs: BP: 98 mmHg/64 mmHg (09/09/23302) Pulse: 64 (09/09/23302) Temp: 36.39 C (09/09/23302) Temp Summary: Temp Min: 36.4 C (97.5 F) Max: 37.1 C (98.8 F) SpO2: 98 % (09/09/23302) O2 flow rate: Supplemental O2 Delivery: Room Air, None (09/09/23302) Physical Exam Vitals and nursing note reviewed. Constitutional: Comments: Appears weak, more alert and interactive than previous exams HENT: Head: Normocephalic and atraumatic. Right Ear: External ear normal. Left Ear: External ear normal. Nose: Nose normal. Mouth/Throat: Pharynx: Oropharynx is clear. Eyes: Extraocular Movements: Extraocular movements intact. Cardiovascular: Rate and Rhythm: Normal rate and regular rhythm. Heart sounds: Normal heart sounds. No murmur heard. Pulmonary: Effort: Pulmonary effort is normal. No respiratory distress. Breath sounds: Normal breath sounds. Abdominal: General: There is no distension. Palpations: Abdomen is soft. Tenderness: There is abdominal tenderness (Generalized). There is no guarding or rebound. Skin: General: Skin is warm and dry. Comments: B/L lower extremities w/ RAMOS wraps in place covering previous wounds inferior to knees. Neurological: General: No focal deficit present. Mental Status: She is alert and oriented to person, place, and time. Psychiatric: Mood and Affect: Mood normal. Peripheral Line Right Hand 22 Gauge (Active) Number of days: 1 STUDIES: Encounter Orders Labs and other studies reviewed with pertinent findings noted below: Latest Reference Range & Units 09/09/23 06:18 Sodium 135 - 146 mmol/L 139 Potassium 3.5 - 5.1 mmol/L 3.9 Chloride 98 - 107 mmol/L 102 CO2 22 - 32 mmol/L 25 BUN 6 - 20 mg/dL 9 Creatinine 0.5 - 1.0 mg/dL 0.4 (L) Estimated Glomerular Filtration Rate >=60 mL/min >90 Anion Gap 7 - 15 mmol/L 12 Glucose 70 - 120 mg/dL 165 (H) Calcium 8.4 - 10.2 mg/dL 9.8 Magnesium 1.5 - 2.6 mg/dL 2.3 Phosphorus 2.5 - 4.8 mg/dL 3.8 CBC Rpt !! WBC 4.00 - 10.80 K/uL 15.47 (H) HGB 12.0 - 15.3 g/dL 14.9 HCT 36.0 - 45.2 % 46.1 (H) MCV 81.5 - 97.5 fL 87.5 PLT 140 - 400 K/uL 1,158 (HH) Latest Reference Range & Units 09/09/23 06:22 Clostridium difficile Result Negative Negative. No C. difficile toxin B gene DNA detected by PCR (Amplified Probe). Stool Consistency Semi-formed Latest Reference Range & Units 09/08/23 05:24 GGTP <=40 U/L 43 (H) No imaging results in the last 24 hours Recent Cultures (2 Weeks) 09/06/2023 09/06/2023 09/06/2023 08/21/2023 08/20/2023 08/19/2023 08/19/2023 08/18/2023 7:44 PM 2:41 PM 2:36 PM 9:27 AM 4:13 PM 1:27 AM 1:22 AM 11:54 PM STAIN DESCRIPTION -- -- -- -- Occasional Polymorphonuclear leukocytes -- -- -- No organisms seen CULTURE GROWTH -- -- -- -- Few Proteus mirabilis -- -- -- Few Bacteroides fragilis BLOOD CULTURE GROWTH -- No growth to date No growth to date -- -- No growth No growth -- GASTROINTESTINAL STOOL CULTURE GROWTH -- -- -- Yeast -- -- -- -- QUANT URINE CULTURE GROWTH No significant growth -- -- -- -- -- -- No significant growth Assessment and Plan IMPRESSION : Principal Problem: Generalized weakness Active Problems: Anemia Other iron deficiency anemias Acute pharyngitis Thrombocytosis Celiac disease Malnutrition of moderate degree (HCC) Pyoderma gangrenosum Abnormal CT of the abdomen Resolved Problems: * No resolved hospital problems. * I have examined the patient and consistent with the dietitian's findings found malnutrition presentof Moderate (09/07/23 1314) degree. This is consistent with such due to Weight loss;Muscle loss (09/07/23 1314). I have also reviewed and agree with the dietitian's plan of care which include Oral nutritional supplement ordered/adjusted (09/07/23 1316). DIFFERENTIAL AND PLAN: Ms. Guevara is a 48 y/o female admitted for increasing weakness over the past several weeks. Of note, she was recently admitted approx 2 weeks ago for B/L LE wounds thought to be pyoderma gangrenosum. Also noted to be anemic. GI, nutrition, and Heme/Onc currently following patient. GI w/ plans to perform push enteroscopy Monday w/ biopsies of duodenum and jejunum to further investigate ongoing weakness and GI upset/enteritis. Patient was also started on steroids yesterday for suspected PMR diagnosis - will continue to monitor for improvement of symptoms. Generalized Weakness Enteritis Malnutrition - GI consult - Push Enteroscopy to be completed Monday w/ biopsies - Repeat stool studies pending - Nutrition following, appreciate recs - PT/OT/ consults - PT [facility]: 16, needs rolling walker - CM following, refused HH and rehab - CBC, BMP, Mag, Phos Daily - Monitor I/Os - Gluten Free Diet - NPO at 2400 Monday night Pyoderma Gangrenosum - Wound consulted, continued wound care per recommendations Anemia - Heme/Onc consulted - Continue Folic Acid 5mg Daily - Referral for outpatient follow-up on discharge ?PMR - Started Solumedrol 20mg q8h, monitor symptoms Esophageal Candidiasis - Continue Fluconazole 400mg daily, ending 09/13/23 - Strep Swab negative PHARMACOLOGIC VTE PROPHYLAXIS: hEParin CODE STATUS: Full Code EXPECTED DISCHARGE DATE: 09/11/2023 Patient was discussed with Dr. Hampton. The Teaching Physician reviewed or was physically present during the critical or ray portions of the service furnished by the resident. Maxime Mo, Resident physician. PGY2 Associated attestation - Mychal Hampton MD - 09/09/2023 10:57 AM EST I saw and evaluated the patient today. I have reviewed the trainee note and agree. I spent a total of 52 minutes coordinating, documenting, and providing care for this patient excluding time spent in the performance of separately billed services. * Tyler Perez MD - 09/08/2023 2:43 PM EST PROGRESS NOTE - Gastroenterology Service [facility] [id number] Name: Soco Guevara Location: [facility] 4B-4009/D Date: 09/08/2023 Time: 2:44 PM SUBJECTIVE: The patient was seen and examined, chart reviewed. 48, female, admitted on 09/06 for weakness. Diarrhea about 2x/day, loose. Very sore throat, weak voice, minimally able to clear her throat. Denies N/V. Celiac Disease dx'ed in January 2023. No improvement on a gluten free diet. Continues to lose weight. Albumin 3.3; Alph1/2 both mildly elevated. CRP and sed both el at 23. Alk Phos 142. LFTs and lipaseotherwise normal. C-diff (-) on 08/26/23 ROS: Constitutional: No report of fever, chills or sweats; unintentional weight loss HEENT: sore throat, denies sinus pain/congestion Cardiac: no palpitations, + weakness, + lightheaded, no edema Chest: No cough CP or SOB Abd: + diarrhea, generalized discomfort but no significant abd pain Ext: no edema Skin: sores on legs consistent with previously dx'ed pyoderma. Improving w wound clinic care. M/S generalized muscle aches/weakness GI as per HPI, otherwise (-) OBJECTIVE: Vital Signs Last 24 Hours: Systolic BP: Most Recent Systolic BP Av.8 mmHg Min: 95 mmHg Max: 110 mmHg Temperature: Most Recent Temperature Av.9 C Min: 36.39 C Max: 37.5 C Pulse: Pulse Av.7 Min: 63 Max: 103 Respirations: Resp Av.4 Min: 18 Max: 20 SpO2: SpO2 Av.2 % Min: 94 % Max: 97 % Constitutional: (+) chronically ill, appears weak, laying in bed. Is awake, alert, oriented HEENT: No conjunctival pallor, sclera anicteric. CV: Heart is regular without murmur, rub or gallop. Chest: Clear to percussion and auscultation. GI: Abdomen is soft, non-tender and bowel sounds normal. Extremities: No edema. Also pharynx w red petechia, small amts of white exudate. LABS: Labs reviewed as indicated below: WBC 18, HGB 12, HCT 38, PLT 978, PT 17, INR 1.1, Na 138, K 4.1, Cl 104, CO2 24, BUN 5, CR 0.4, glucose 92 IMAGING: US 09/06/23: 1. Nonspecific diffuse borderline gallbladder wall thickening measuring 3-4 mm, may be due to incomplete distension. 2. Small gallbladder polyps measuring up to 4 mm. IMPRESSION: CT w suggestion of small bowel enteritis. Unintentional weight loss, Hypoalbuminemia, sore throat wsome exudate, muscle weakness. All in the setting of Celiac w/o improvement on a gluten free diet. RECOMMENDATIONS: Repeat stool studies Empirically tx for yeast esophagitis. Consider repeating throat swab for strep. Check GGT (suggestion of bone lesions on imaging). Empirically tx w a short course of steroids. Plan was to do EGD/Small bowel enteroscopy today, but she drank a protein shake mid morning. Will plan for EGD/SBE on Monday. 7. OK w regular consistency food the remainder of today, tomorrow, Monday. NPO after midnight into Monday. I have discussed the case with my attending, Dr Perez. I performed a history and physical examination of the patient, including specifically on physical exam - soft abomen. I have discussed the patient's management with LEONEL Galloway. Please referto the nurse practioner's note for the documented findings and plan of care. -patient with profound weakness of an unknown etiology. -questionable celiac disease versus refractory celiac disease however not having any appreciable diarrhea. -concern by primary team for PMR, agree with an empiric steroids throat culture swab for strep and possible treatment for yeast. -planning enteroscopy today however due to NPO evaluation will be performed on Monday -continue evaluating etiologies for weakness * Maxime Mo DO - 09/08/2023 6:48 AM EST Images from the original note were not included. [facility] 4B-4009/D INTERVAL HISTORY: No acute events reported overnight. Patient encountered resting comfortably in bed this AM. Reportsfeeling somewhat improved form yesterday. Denies N/V, but endorses diarrhea x 2 yesterday. Reports that she is tolerating PO intake. Denies chest pain or SOB. Objective Physical Exam Most Recent Vital Signs: BP: 105 mmHg/65 mmHg (09/08/23806) Pulse: 63 (09/08/23806) Temp: 37.11 C (09/08/23806) Temp Summary: Temp Min: 36.3 C (97.4 F) Max: 37.5 C (99.5 F) SpO2: 97 % (02/02/24 0807) O2 flow rate: Supplemental O2 Delivery: Room Air, None (09/08/23 0836) Physical Exam Vitals and nursing note reviewed. Constitutional: Comments: Appears weak HENT: Head: Normocephalic and atraumatic. Right Ear: External ear normal. Left Ear: External ear normal. Nose: Nose normal. Mouth/Throat: Pharynx: Oropharynx is clear. Eyes: Extraocular Movements: Extraocular movements intact. Cardiovascular: Rate and Rhythm: Normal rate and regular rhythm. Heart sounds: Normal heart sounds. No murmur heard. Pulmonary: Effort: Pulmonary effort is normal. No respiratory distress. Breath sounds: Normal breath sounds. Abdominal: General: There is no distension. Palpations: Abdomen is soft. Tenderness: There is abdominal tenderness (Generalized). There is no guarding or rebound. Skin: General: Skin is warm and dry. Comments: B/L lower extremities w/ RMAOS wraps in place covering previous wounds inferior to knees. Neurological: General: No focal deficit present. Mental Status: She is alert and oriented to person, place, and time. Comments: Speaks in whispered tone Psychiatric: Mood and Affect: Mood normal. Peripheral Line Left Antecubital 20 Gauge (Active) Number of days: 2 STUDIES: Encounter Orders Labs and other studies reviewed with pertinent findings noted below: Latest Reference Range & Units 09/08/23 05:24 Sodium 135 - 146 mmol/L 138 Potassium 3.5 - 5.1 mmol/L 4.1 Chloride 98 - 107 mmol/L 104 CO2 22 - 32 mmol/L 24 BUN 6 - 20 mg/dL 5 (L) Creatinine 0.5 - 1.0 mg/dL 0.4 (L) Estimated Glomerular Filtration Rate >=60 mL/min >90 Anion Gap 7 - 15 mmol/L 10 Glucose 70 - 120 mg/dL 92 Calcium 8.4 - 10.2 mg/dL 8.7 Magnesium 1.5 - 2.6 mg/dL 2.3 Phosphorus 2.5 - 4.8 mg/dL 3.8 CBC Rpt ! WBC 4.00 - 10.80 K/uL 18.17 (H) HGB 12.0 - 15.3 g/dL 12.0 HCT 36.0 - 45.2 % 38.8 MCV 81.5 - 97.5 fL 86.8 PLT 140 - 400 K/uL 978 (H) Latest Reference Range & Units 09/07/23 04:33 Iron 33 - 151 ug/dL 18 (L) Iron Binding Capacity 250 - 425 ug/dL 248 (L) Transferrin Saturation Percent 15 - 55 % 7 (L) Ferritin 13 - 150 ng/mL 47 No imaging results in the last 24 hours Assessment and Plan IMPRESSION : Principal Problem: Generalized weakness Active Problems: Anemia Other iron deficiency anemias Thrombocytosis Celiac disease Malnutrition of moderate degree (HCC) Pyoderma gangrenosum Abnormal CT of the abdomen Resolved Problems: * No resolved hospital problems. * I have examined the patient and consistent with the dietitian's findings found malnutrition presentof Moderate (09/07/23 1314) degree. This is consistent with such due to Weight loss;Muscle loss (09/07/23 1314). I have also reviewed and agree with the dietitian's plan of care which include Oral nutritional supplement ordered/adjusted (09/07/23 1316). DIFFERENTIAL AND PLAN: Ms. Guevara is a 48 y/o female admitted for increasing weakness over the past several weeks. Of note, she was recently admitted approx 2 weeks ago for B/L LE wounds thought to be pyoderma gangrenosum. Also noted to be anemia. GI, nutrition, and Heme/Onc currently following patient. GI w/ plans to perform push enteroscopy today w/ biopsies of duodenum and jejunum to further investigate ongoing weakness and GI upset/enteritis. Generalized Weakness Enteritis Malnutrition - GI consult - Push Enteroscopy to be completed today w/ biopsies - Nutrition following, appreciate recs - PT/OT/CM consults - PT [facility]: 16, needs rolling walker - CBC, BMP, Mag, Phos Daily - Monitor I/Os - Gluten Free Diet Pyoderma Gangrenosum - Wound consulted, continued wound care per recommendations Anemia - Heme/Onc consulted - Iron studies completed as above - Start Folic Acid 5mg Daily - Referral for outpatient follow-up on discharge PHARMACOLOGIC VTE PROPHYLAXIS: hEParin CODE STATUS: Full Code EXPECTED DISCHARGE DATE: 09/11/2023 Patient was discussed with Dr. Hampton. The Teaching Physician reviewed or was physically present during the critical or ray portions of the service furnished by the resident. Maxime Mo, Resident physician, PGY2 Associated attestation - Mychal Hampton MD - 09/08/2023 3:28 PM EST I saw and evaluated the patient today. I have reviewed the trainee note and agree. I spent a total of 54 minutes coordinating, documenting, and providing care for this patient excluding time spent in the performance of separately billed services. Case discussed with GI Patient reporting painful swallowing, we will check for strep and has oral lesions We will cover for esophageal candidiasis with Diflucan Patient is universally weak we will check a CRP and start steroids for the possibility of PMR Check pre-albumin to assess nutritional status Await EGD with small bowel enteroscopy on Monday NPO at midnight on Monday * Maxime Mo DO - 09/07/2023 9:51 AM EST Images from the original note were not included. [facility] [id number] INTERVAL HISTORY: Patient encountered resting in bed this AM. Endorses feeling weak overall and states that she has been feeling this way for some time. Denies N/V, but does report having diarrhea. No abdominal pain. Denies chest pain or SOB. Does endorse some PO intake since admission. Objective Physical Exam Most Recent Vital Signs: BP: 94 mmHg/61 mmHg (09/07/23 07) Pulse: 73 (09/07/23 0743) Temp: 36.28 C (09/07/23 07) Temp Summary: Temp Min: 36.3 C (97.3 F) Max: 37.9 C (100.2 F) SpO2: 98 % (09/07/23 0743) O2 flow rate: Supplemental O2 Delivery: Room Air, None (09/07/23 0300) Physical Exam Vitals and nursing note reviewed. Constitutional: Comments: Appears fatigued and weak HENT: Head: Normocephalic and atraumatic. Right Ear: External ear normal. Left Ear: External ear normal. Nose: Nose normal. Mouth/Throat: Pharynx: Oropharynx is clear. Eyes: Extraocular Movements: Extraocular movements intact. Cardiovascular: Rate and Rhythm: Normal rate and regular rhythm. Heart sounds: Normal heart sounds. No murmur heard. Pulmonary: Effort: Pulmonary effort is normal. No respiratory distress. Breath sounds: Normal breath sounds. Abdominal: General: There is no distension. Palpations: Abdomen is soft. Tenderness: There is no abdominal tenderness. There is no guarding or rebound. Skin: General: Skin is warm and dry. Comments: B/L lower extremities w/ RAMOS wraps in place covering previous wounds inferior to knees. Neurological: General: No focal deficit present. Mental Status: She is alert and oriented to person, place, and time. Comments: Speaks in whispered tone Psychiatric: Mood and Affect: Mood normal. Peripheral Line Left Antecubital 20 Gauge (Active) Number of days: 1 STUDIES: Encounter Orders Labs and other studies reviewed with pertinent findings noted below: Latest Reference Range & Units 09/07/23 04:32 09/07/23 04:33 Sodium 135 - 146 mmol/L 139 Potassium 3.5 - 5.1 mmol/L 3.6 Chloride 98 - 107 mmol/L 106 CO2 22 - 32 mmol/L 21 (L) BUN 6 - 20 mg/dL 5 (L) Creatinine 0.5 - 1.0 mg/dL 0.3 (L) Estimated Glomerular Filtration Rate >=60 mL/min >90 Anion Gap 7 - 15 mmol/L 12 Glucose 70 - 120 mg/dL 100 Calcium 8.4 - 10.2 mg/dL 8.4 Magnesium 1.5 - 2.6 mg/dL 2.1 Phosphorus 2.5 - 4.8 mg/dL 3.5 CBC Rpt ! WBC 4.00 - 10.80 K/uL 15.44 (H) HGB 12.0 - 15.3 g/dL 11.9 (L) HCT 36.0 - 45.2 % 36.4 MCV 81.5 - 97.5 fL 86.1 PLT 140 - 400 K/uL 924 (H) Latest Reference Range & Units 09/06/23 19:44 Color, Urine Light Yellow, Yellow, Dark Yellow Yellow Clarity, Urine Clear Clear Glucose, Urine Negative mg/dL Negative Bilirubin, Urine Negative Negative Ketone, Urine Negative mg/dL Negative Specific Colbert, Urine 1.003 - 1.030 1.025 Blood, Urine Negative Negative pH, Urine 5.0 - 7.5 Units 6.5 Protein, Urine Negative mg/dL Negative Urobilinogen, Urine 0.2, 1.0 mg/dL 0.2 Nitrite, Urine Negative Negative Esterase, Urine Negative Trace ! Bacteria, Urine 0 - 25 /HPF 26-50 ! WBC, Urine 0 - 2 /HPF 3-5 ! RBC, Urine 0 - 2 /HPF 0-2 CT ABD/PELVIS W IV CONTRAST - WO ORAL CONTRAST Result Date: 09/06/2023 IMPRESSION: Evidence of enteritis, infectious or inflammatory, with diffuse small bowel wall thickening. The small bowel is moderately distended with fluid. THIS DOCUMENT HAS BEEN ELECTRONICALLY SIGNED BY JAREN MITCHELL MD US ABDOMEN LIMITED Result Date: 09/06/2023 IMPRESSION: 1. Nonspecific diffuse borderline gallbladder wall thickening measuring 3-4 mm, may be due to incomplete distension. 2. Small gallbladder polyps measuring up to 4 mm. THIS DOCUMENT HAS BEEN ELECTRONICALLY SIGNED BY JAREN MITCHELL MD XR ABDOMEN OBSTRUCT SERIES W CHEST 1 VIEW Result Date: 09/06/2023 IMPRESSION: Nonobstructive bowel gas pattern. THIS DOCUMENT HAS BEEN ELECTRONICALLY SIGNED BY JAREN MITCHELL MD XR SHOULDER, 2 OR MORE VIEWS Result Date: 09/06/2023 IMPRESSION: No evidence of acute fracture or subluxation. THIS DOCUMENT HAS BEEN ELECTRONICALLY SIGNED BY JAREN MITCHELL MD CT C SPINE WO CONTRAST Result Date: 09/06/2023 IMPRESSION: No acute findings. THIS DOCUMENT HAS BEEN ELECTRONICALLY SIGNED BY YOVANA KASPER MD CT HEAD/BRAIN WO CONTRAST Result Date: 09/06/2023 IMPRESSION: No acute intracranial abnormality. THIS DOCUMENT HAS BEEN ELECTRONICALLY SIGNED BY YOVANA KASPER MD Assessment and Plan IMPRESSION : Principal Problem: Generalized weakness Active Problems: Anemia Other iron deficiency anemias Thrombocytosis Celiac disease Malnutrition of moderate degree (HCC) Pyoderma gangrenosum Resolved Problems: * No resolved hospital problems. * DIFFERENTIAL AND PLAN: Ms. Guevara is a 48 y/o female admitted for increasing weakness over the past several weeks. Of note, she was recently admitted approx 2 weeks ago for B/L LE wounds thought to be pyoderma gangrenosum. Admitted for continued work-up and GI consultation due to concerns of ongoing diarrhea, weakness, and enteritis Generalized Weakness Enteritis Malnutrition - GI consult, appreciate recs - Nutrition consult - PT/OT/CM consults - CBC, BMP, Mag, Phos Daily - Monitor I/Os - Gluten Free Diet Pyoderma Gangrenosum - ID consult, appreciate recs - Wound consult PHARMACOLOGIC VTE PROPHYLAXIS: hEParin CODE STATUS: Full Code EXPECTED DISCHARGE DATE: No information available Patient was discussed with Dr. Hampton. The Teaching Physician reviewed or was physically present during the critical or ray portions of the service furnished by the resident. Maxime Mo DO Resident physician, PGY2 Associated attestation - Mychal Hampton MD - 09/07/2023 1:27 PM EST I saw and evaluated the patient today. I have reviewed the trainee note and agree. I spent a total of 52 minutes coordinating, documenting, and providing care for this patient excluding time spent in the performance of separately billed services. has been giving yeast supplements, which may explain yeast findings in stool documented in this encounter H&P Notes * Teri Graham MD - 09/11/2023 9:22 AM EST Endoscopy Pre-Procedure Assessment Name: Soco Guevara Date: 09/11/2023 Time: 9:23 AM Procedure(s): Small Bowel Enteroscopy; with Indication(s) of weakness/anorexia Endoscopy Pre-Procedure Assessment: Prior to the procedure, the patient is identified. The patient's history, medications and allergieshave been reviewed. The patient is competent. The risks and benefits of the proposed procedure and the planned sedation have been discussed with the patient. All questions have been answered and informed consent for the procedure has been obtained. Prior to Admission medications Medication Sig Last Dose Discont. Midodrine HCl 5 MG Oral Tablet (Proamatine) Take 1 Tablet by mouth in the morning and 1 Tablet at noon and 1 Tablet before bedtime. 09/06/2023 Midodrine HCl 5 MG Oral Tablet (Proamatine) Take 1 Tablet by mouth in the morning and 1 Tablet at noon and 1 Tablet in the evening. 09/06/2023 Amoxicillin-Pot Clavulanate 875-125 MG Oral Tablet (Augmentin) Take 1 Tablet by mouth in the morning and 1 Tablet before bedtime. Do all this for 10 days. Amoxicillin-Pot Clavulanate 875-125 MG Oral Tablet (Augmentin) Take 1 Tablet by mouth in the morning and 1 Tablet before bedtime. Do all this for 10 days. Roller Walker Use as directed Furosemide 5 MG OR TABS Take by mouth daily. Patient not taking: Reported on 09/06/2023 Not Taking Sulfamethoxazole-Trimethoprim 200-40 MG/5ML Oral Suspension (Bactrim) Review of patient's allergies indicates: Allergen Reactions Monoferric [Ferric Derisomaltose] SOB and lost consciousness BP 102/69 | Pulse 62 | Temp 36.7 C (98.1 F) (Tympanic) | Resp 18 | Ht 1.626 m (5' 4.02") | Wt 51.8 kg (114 lb 3.2 oz) | LMP 02/04/2022 (Approximate) | SpO2 96% | BMI 19.59 kg/m | BSA 1.53 m Physical Exam: MS: normal Frail appearing female in nad ASA Grade: III - A patient with severe systemic disease. Abdomen: soft This patient has undergone a preprocedural evaluation. A determination has been made to proceed with the planned procedure under [facility] procedural guidelines and the [facility] Non-Emergent, Elective Medical Services and Treatment Recommendations (published on 11-12-19). The community and hospital prevalence of COVID-19 has been discussed as well as this patient's specific risks associated with SARS-CoV-19 infection. Based upon the clinical acuity and patient-specific care considerations, this procedure is deemed a Tier III - Procedures at little or no risk for clinical deterioration (example - cosmetic). After reviewing the risks and benefits, the patient is deemed in satisfactory condition to undergo the procedure. The anesthesia plan is to use general anesthesia. Teri Graham MD 09/11/2023 * Chuck Hernandez MD - 09/06/2023 8:13 PM EST Images from the original note were not included. [facility] 15 PRESENTING PROBLEM: worsening weakness HPI: This is a 48 yo woman with history of suspected celiac disease, iron deficiency anemia, colitis, weakness. She was admitted here 2 weeks ago and at the time had severe leg wounds which are thought to be pyoderma gangrenosum. Also, she was seen by GI and ID was consulted via ask-a-doc. She was discharged 10 days ago, and has only seen her pcp in follow up. GI follow up is apparently in November.Since discharge she has been very weak, and today looks weaker than she was 2 weeks ago, at time ofprior admission. Leg wounds are improving as per . She returns today for generalized weakness. Two days ago, she fell at home. Also, stool test done on Aug 21, found yeast. ROS: No fever, weakness worse. See hpi for pertinent ros. Subjective Patient's past history, medications, and allergies were reviewed. Objective Physical Exam Most Recent Vital Signs: BP: 102 mmHg/69 mmHg (09/06/231944) Pulse: 85 (09/06/231944) Temp: 36.78 C (09/06/23 1413) Temp Summary: Temp Min: 36.8 C (98.2 F) Max: 36.8 C (98.2 F) SpO2: 99 % (09/06/231412) O2 flow rate: Supplemental O2 Delivery: Constitutional: no acute distress HEENT: normocephalic, atraumatic; upper plate; posterior pharynx appears benign Eyes: sclera and conjunctiva normal Neck: supple, no noticeable adenopathy CV: normal rate and rhythm, no murmur, gallops or rub Chest: normal respiratory effort, lungs clear to auscultation Abdomen: soft, bowel sounds normal, no tenderness Extremities: legs wrapped in compressive gauze below the knees. Skin: warm, prior leg ulcers covered with gauze. Neuro: alert, oriented to person, place, very weak; speaks in a whisper. Face symmetric. Otherwise non-focal STUDIES: Encounter Orders Labs and other studies reviewed with pertinent findings noted below: Results for orders placed or performed during [...] Immature Granulocytes 0.15 0.00 - 0.20 K/uL MONONUCLEOSIS HETEROPHILE ANTIBODY Result Value Ref Range Mononucleosis Antibody Negative Negative BASIC METABOLIC PANEL Result Value [...] mg/dL Calcium 9.1 8.4 - 10.2 mg/dL CT ABD/PELVIS W IV CONTRAST - WO ORAL CONTRAST Final Result PROCEDURE INFORMATION: Exam: CT Abdomen And Pelvis [...] small bowel is moderately distended with fluid. THIS DOCUMENT HAS BEEN ELECTRONICALLY SIGNED BY JAREN MITCHELL MD US ABDOMEN LIMITED Final Result PROCEDURE INFORMATION: Exam: US Abdomen, Limited; Right Upper Quadrant Exam date and time: 09/06/2023 3:56 PM Age: 48 years old Clinical indication: Other: Weakness, diarrhea; Additional info: Elevated alkaline phosphatase, generalized weakness TECHNIQUE: Imaging protocol: Real time ultrasound of the abdomen with image documentation. Limited exam focused on the right upper quadrant. COMPARISON: 1. US ABDOMEN COMPLETE 05/10/2019 3:[address] ABD/PELVIS W IV CONTRAST - WO ORAL CONTRAST 08/19/2023 9:25 AM FINDINGS: Liver: Unremarkable. Gallbladder: The gallbladder is incompletely distended. Nonspecific diffuse borderline gallbladder wall thickening measuring 3-4 mm, may be due to incomplete distension. Small gallbladder polyps measuring up to 4 mm. No evidence of cholelithiasis or pericholecystic free fluid. No sonographic Braun sign per synchro assembler report. Biliary ducts: No intrahepatic or extrahepatic biliary ductal dilation. Pancreas: The pancreas is diffusely hypoechoic, similar to prior. Mildly prominent pancreatic duct, also similar to prior. Right kidney: No right hydronephrosis. Extrarenal pelvis on the right is similar to prior. IMPRESSION IMPRESSION: 1. Nonspecific diffuse borderline gallbladder wall thickening measuring 3-4 mm, may be due to incomplete distension. 2. Small gallbladder polyps measuring up to 4 mm. THIS DOCUMENT HAS BEEN ELECTRONICALLY SIGNED BY JAREN MITCHELL MD XR ABDOMEN OBSTRUCT SERIES W CHEST 1 VIEW Final Result PROCEDURE INFORMATION: Exam: XR Complete Acute Abdomen Series Including Chest Exam date and time: 09/06/2023 3:10 PM Age: 48 years old Clinical indication: Other: Generalized weakness and pain TECHNIQUE: Imaging protocol: Radiologic exam. Complete acute abdomen series, including 2 or more views of the abdomen and a single view chest. COMPARISON: CT ABD/PELVIS W IV CONTRAST - WO ORAL CONTRAST 08/19/2023 9:25 AM FINDINGS: Lungs: No evidence of focal consolidation. Pleural spaces: No evidence of pleural effusion or pneumothorax. Heart/Mediastinum: Cardiomediastinal silhouette is not abnormally enlarged. Gastrointestinal tract: Nonobstructive bowel gas pattern. Intraperitoneal space: No evidence of free air under the diaphragm. Bones/joints: Unremarkable for age. Soft tissues: Unremarkable. IMPRESSION IMPRESSION: Nonobstructive bowel gas pattern. THIS DOCUMENT HAS BEEN ELECTRONICALLY SIGNED BY JAREN MITCHELL MD XR SHOULDER, 2 OR MORE VIEWS Final Result PROCEDURE INFORMATION: Exam: XR Left Shoulder Exam date and time: 09/06/2023 3:15 PM Age: 48 years old Clinical indication: Other: Generalized weakness and pain; Additional info: Fall with left shoulder pain TECHNIQUE: Imaging protocol: Radiologic exam of the left shoulder. Views: 2 or more views. COMPARISON: CT PET^[facility] (Adult) 01/20/2023 2:48 PM FINDINGS: Bones/joints: Bony structures are intact. Joint spaces are preserved. Soft tissues: Unremarkable. IMPRESSION IMPRESSION: No evidence of acute fracture or subluxation. THIS DOCUMENT HAS BEEN ELECTRONICALLY SIGNED BY JAREN MITCHELL MD CT HEAD/BRAIN WO CONTRAST Final Result PROCEDURE INFORMATION: Exam: CT Head Without Contrast Exam date and time: 09/06/2023 3:03 PM Age: 48 years old Clinical indication: Other: Fall, generalized weakness TECHNIQUE: Imaging protocol: Computed tomography of the head without contrast. Radiation optimization: All CT scans at this facility use at least one of these dose optimization techniques: automated exposure control; mA and/or kV adjustment per patient size (includes targeted exams where dose is matched to clinical indication); or iterative reconstruction. COMPARISON: CT HEAD/BRAIN WO CONTRAST 08/18/2023 7:56 PM FINDINGS: Brain: Normal. No hemorrhage. Unremarkable white matter. No mass effect. Cerebral ventricles: No ventriculomegaly. Paranasal sinuses: Visualized sinuses are unremarkable. No fluid levels. Mastoid air cells: Visualized mastoid air cells are well aerated. Bones/joints: Unremarkable. No acute fracture. Soft tissues: Unremarkable. IMPRESSION IMPRESSION: No acute intracranial abnormality. THIS DOCUMENT HAS BEEN ELECTRONICALLY SIGNED BY YOVANA KASPER MD CT C SPINE WO CONTRAST Final Result PROCEDURE INFORMATION: Exam: CT Cervical Spine Without Contrast Exam date and time: 09/06/2023 3:03 PM Age: 48 years old Clinical indication: Other: Neck pain; Trauma; Significant trauma TECHNIQUE: Imaging protocol: Computed tomography of the cervical spine without contrast. Radiation optimization: All CT scans at this facility use at least one of these dose optimization techniques: automated exposure control; mA and/or kV adjustment per patient size (includes targeted exams where dose is matched to clinical indication); or iterative reconstruction. COMPARISON: CT PET^[facility] (Adult) 01/20/2023 2:48 PM FINDINGS: Bones/joints: No acute fracture. Normal alignment. No significant disc bulge or herniation. No severe spinal canal stenosis. No significant neural foraminal narrowing. Lungs: Lung apices are normal. Soft tissues: Unremarkable. IMPRESSION IMPRESSION: No acute findings. THIS DOCUMENT HAS BEEN ELECTRONICALLY SIGNED BY YOVANA KASPER MD I personally reviewed her EKG which shows nsr. Assessment and Plan IMPRESSION: Principal Problem: Generalized weakness Active Problems: Anemia Other iron deficiency anemias Thrombocytosis Celiac disease Malnutrition of moderate degree (HCC) Pyoderma gangrenosum Resolved Problems: * No resolved hospital problems. * DIFFERENTIAL AND PLAN: Patient continues to suffer from nutritional deficiency in setting of celiac disease and enteritis.It's unclear what significance of yeast in stool studies has. Overall, her weakness appears worse today than 2 weeks ago. -admit to monitored floor; -check magnesium, phosphorus and supplement as needed -nutrition consult -gi consult regarding persistent enteritis -ID consult regarding yeast -Wound consult -pt/ot PHARMACOLOGIC VTE PROPHYLAXIS:hEParin CODE STATUS: Full Code EXPECTED DISCHARGE DATE: 1-2 days or more I spent a total of 60 minutes coordinating, documenting, and providing care for this patient excluding time spent in the performance of separately billed services. documented in this encounter Procedure Notes * Mychal Hampton MD - 09/11/2023 9:20 AM ESTAssociated Order(s): SMALL BOWEL ENTEROSCOPY [facility] Patient Name: Soco Guevara Procedure Date: 09/11/2023 9:20 AM Date of : 1975 Admit Type: Outpatient Note Status: Finalized Date of : 1975 Admit Type: Outpatient Age: 48 Room: [facility] 1 Gender: Female Note Status: Finalized Procedure: Small bowel enteroscopy Indications: Anorexia Providers: Teri Graham MD Referring MD: Mychal Hampton MD Medicines: See the Anesthesia note for documentation of the administered medications Complications: No immediate complications. Procedure: Pre-Anesthesia Assessment: - Patient identification and proposed procedure were verified prior to the procedure by the physician, the nurse and the anesthesiologist. The procedure was verified in the pre-procedure area. - Prior to the procedure, a History and Physical was performed, and patient medications, allergies and sensitivities were reviewed. The patient's tolerance of previous anesthesia was reviewed. - The risks and benefits of the procedure and the sedation options and risks were discussed with the patient. All questions were answered and informed consent was obtained. - The medication list for this patient has been reviewed prior to the procedure and has been determined that the patient may proceed with the planned study. Any medication changes made as a result of the findings of this procedure have been discussed with the patient and/or account services representative at the time of discharge from the department. - After obtaining informed consent, the endoscope was passed under direct vision. All instruments were visually inspected immediately before and after removal from the patient to ensure they are fully intact. Throughout the procedure, the patient's blood pressure, pulse, and oxygen saturations were monitored continuously. The PCF-H180AL Colonoscope ([id number]) was introduced through the mouth and advanced to the proximal jejunum. The small bowel enteroscopy was accomplished without difficulty. The patient tolerated the procedure well. Findings & Specimens: The examined esophagus appeared normal. The examined stomach appeared normal. Biopsies were taken with a cold forceps for histology. The pathology specimen was placed into Bottle C. There was no evidence of significant pathology in the duodenal bulb and in the second portion of the duodenum. The duodenum did not appear to have a scalloped appearance. Biopsies for histology were taken with a cold forceps for evaluation of celiac disease. The pathology specimen was placed into BottleB. There was no evidence of significant pathology in the proximal jejunum. Biopsies were taken with a cold forceps for histology. The pathology specimen was placed into Bottle A. Verification of patient identification for the specimen was done by the physician and nurse using the patient's name and medical record number. Impression: - Normal esophagus. - Normal stomach. Biopsied. - Normal duodenal bulb and second portion of the duodenum. Biopsied. - The examined portion of the jejunum appeared normal. Biopsied. Recommendation: - Await pathology results. - Return to the floor. - The patient has been eating a gluten free diet since her initial biopsies diagnostic of celiac in 01/27. Teri Graham MD 09/11/2023 9:49:17 AM This report has been signed electronically. Estimated Blood Loss: Estimated blood loss was minimal. * Paige Groves DO - 09/07/2023 12:47 PM ESTAssociated Order(s): EKG REASON FOR STUDY: Previously noted incomplete heart block;Lidia CONCLUSIONS: Normal sinus rhythm Normal ECG When compared with ECG of 06-SEP-2023 14:36, Nonspecific T wave abnormality now evident in Anterior leads Ventricular Rate: 75 Atrial Rate: 75 MS Interval: 156 QRS Duration: 70 QT/QTc: 394/439 ms P-R-T Sharon: 72 : 62 : 67 degrees * Paige Groves - 09/06/2023 2:36 PM ESTAssociated Order(s): EKG REASON FOR STUDY: WEAKNESS CONCLUSIONS: Normal sinus rhythm Normal ECG When compared with ECG of 19-AUG-2023 04:23, No significant change was found Ventricular Rate: 89 Atrial Rate: 89 MS Interval: 150 QRS Duration: 70 QT/QTc: 366/445 ms P-R-T Sharon: 72 : 65 : 66 degrees documented in this encounter Consult Notes * Ewa Christopher RN - 09/08/2023 2:33 PM ESTAssociated Order(s): CARE MANAGEMENT CONSULT IP See ancillary CM admission note * Melany Hemphill OT - 09/08/2023 9:06 AM ESTAssociated Order(s): ADULT OCCUPATIONAL THERAPY CONSULT IP GENERAL EVALUATION - Occupational Therapy [facility] [id number] Name: Soco Guevara Location: [facility] [id number] Date: 09/08/2023 Time: 905 Soco Guevara is a 48 year old female. Per H&P "This is a 48 yo woman with history of suspected celiac disease, iron deficiency anemia, colitis, weakness. She was admitted here 2 weeks ago and at the time had severe leg wounds which are thought to be pyoderma gangrenosum. Also, she was seen by GI and ID was consulted via ask-a-doc. She was discharged 10 days ago, and has only seen her pcp in follow up. GI follow up is apparently in November. Since discharge she has been very weak, and today looks weaker than she was 2 weeks ago, attime of prior admission. Leg wounds are improving as per . She returns today for generalizedweakness. Two days ago, she fell at home. Also, stool test done on Aug 21, found yeast. " Patient Status: Inpatient Insurance: Payor: [employer] Plan: [employer] PLAN Product Type: *No Product type* Patient Seen: at bedside, nursing cleared patient for therapy Patient Identified By: Name, ID Band and Date Diagnosis: Weakness, ADL deficits, decreased endurance (09/08/23905) Status of treatment: Evaluation completed (09/08/23939) Orders: OT evaluation and treatment (09/08/23905) Weight Bearing Status: Weight bearing as tolerated (09/08/23905) Precautions: Alarms;Falls;Safety (09/08/23905) Total Treatment Time: 46 (09/08/23939) Past Medical History: No past medical history on file. Past Surgical History: Past Surgical History: Procedure Laterality Date COLONOSCOPY, DIAGNOSTIC (RECTUM) N/A 01/13/2023 poor prep/diverticulosis/hemorrhoids/COLONOSCOPY FLEXIBLE PROXIMAL DIAGNOSTIC performed by Tyler Perez MD at [facility] EGD, FLEXIBLE, DIAGNOSTIC N/A 01/13/2023 esophageal mucosal changes secondary to EOE/biopsies show celiac disease/ESOPHAGOGASTRODUODENOSCOPY(EGD), FLEXIBLE, TRANSORAL, DIAGNOSTIC performed by Tyler Perez MD at [facility] Social History/Disposition Lives with: Spouse;Family (dtr) (09/08/23905) Assistance available: Yes (09/08/23905) Dwelling type: Multi-story home (09/08/23905) Entry steps: None (09/08/23905) Inside steps: 10 - 15 (with HR) (09/08/23905) Bedroom location: 1st floor (09/08/23905) Bath location: 1st floor full bath (09/08/23905) Prior Level of Function Reported by: Patient;Chart review (09/08/23905) Ambulation: Ambulatory with device (09/08/23905) Ambulatory Device: Rollator (09/08/23905) Grooming: Independent (09/08/23905) Bathing: Independent (09/08/23905) Dressing: Independent (09/08/23905) Feeding: Independent (09/08/23905) Toileting: Independent (09/08/23905) Meal Prep: Independent (09/08/23905) Homemaking: Independent (09/08/23905) Money Management: Independent (09/08/23905) Subjective: Pt without significant comment and agreeable to participate in therapy. Pain: No complaints of pain Observations Consciousness: Alert (09/08/23905) Orientation: Oriented times 4 (09/08/23905) Cognitive Limitations: (none noted on OT eval) (09/08/23905) Psychosocial: Patient can communicate basic needs;Patient can converse in a social setting (09/08/23905) Visual Deficits: (glasses) (09/08/23905) Sitting posture: Forward head;Rounded shoulders (09/08/23905) Standing posture: Forward head;Rounded shoulders (09/08/23905) Safety awareness: The Patient verbalizes insight of current deficits.;The Patient demonstrates carryover of insight during functional tasks.;Needs cueing supervision. (09/08/23905) Other Findings Light touch sensation: LUE;RUE;Intact (09/08/23905) Current Functional Status: Self Care Able to provide self care: No (09/08/23905) Feeding: Dependent (09/08/23905) Grooming: Supervision (Please comment) (09/08/23905) Toileting: Moderate Assistance (09/08/23905) Dressing Upper Body: Moderate Assistance (09/08/23905) Lower Body: Moderate Assistance (09/08/23905) Bathing Upper Body: Moderate Assistance (09/08/23905) Lower Body: Moderate Assistance (09/08/23905) Functional Ambulation Assistive Device: Rolling walker (09/08/23905) Distance in feet:: 25 (09/08/23905) Level of Assistance: Moderate Assistance (09/08/23905) Bed Mobility Supine-Sit: Moderate Assistance (09/08/23905) Sit-Supine: Contact Guard (09/08/23905) OT Transfers Sit-Stand: Moderate Assistance (09/08/23905) Stand-Sit: Moderate Assistance (09/08/23905) Toilet: Moderate Assistance (09/08/23905) Balance Sit (Static): Good (09/08/23905) Sit (Dynamic): Good (09/08/23905) Stand (Static): Fair (09/08/23905) Stand (Dynamic): Poor (09/08/23905) Alarm Status Patient positioned in: Bed (09/08/23905) With: Bed alarm intact and functioning and call denis in reach (09/08/23905) Patient and Family Goals: to get well and to return home Patient Education Education Topic: Role of OT;Plan of care goals (09/08/23905) Review of Precautions: Safety;Fall (09/08/23905) Method of Education: Verbalized to patient (09/08/23905) Education Provided to: Patient (09/08/23905) Response to Education: Receptive and agreeable to education (09/08/23905) Barriers to learning: Medical status (09/08/23905) Treatment Provided: Therapeutic Activity: 10 minutes Evaluation Moderate Complexity 36 minutes - 79235: Patient was cooperative and pleasant during treatment session. Moderate complexity evaluation performed and 3-5 activity limitations were identified, including ADL deficit, functional mobility deficit, decreased strength, decreased endurance, and impaired balance. Minimal or moderate modification of the functional task was necessary to complete the evaluation. Deficits Requiring O.T. Treatment: Deficits requiring O.T. treatment needs: ADL/self-care;Balance;Endurance;Fine motor coordination;Functional mobility;IADL;Safety;Upper extremity strength;Upper extremity range of motion;Weakness (09/08/23905) Goals: Bathing: Upper: modified independent (100% with device and additional time). Lower: modifiedindependent (100% with device and additional time) Dressing: Upper: modified independent (100% with device and additional time). Lower: modified independent (100% with device and additional time). Transfers with: Sit to Stand: modified independent (with device or slow) Toilet: modified independent (with device or slow) Bed to Chair/Wheelchair: modified independent (with device or slow). Demonstrates ability to tolerate 3/3 meals OOB for 2 consecutive days in a row. Demonstrates Grooming at modified independent (100% with device and additional time). Demonstrates toileting at modified independent (100% with device and additional time) Goal Time Frame: Within 1-10 treatment sessions Assessment: Pt tolerated OT session well. Pt was A&Ox4 and able to answer all prior functional level questions without assist. Pt required Mod A for bed mobility and for balance/maneuvering RW when ambulating. Pt required mod A for balance in stance to perform toileting hygiene and clothing management as well as hand hygiene. Pt washed face while supine in bed with HOB elevated with SPV. MMT/ROM NT d/t pt fatigue at this time. Vitals checked and documented in flowsheet. OT AM-PAC: 12 Pt requires assist with grooming, bathing, dressing , and toileting. As such, Would consider post-acute care services which may include home health, alf, outpatient therapy,or inpatient rehab. The level of care will be determined in collaboration with the patient, family/caregiver, and care team members. Skilled OT services warranted here at [facility] to address deficits in ADLs and functional mobility. Treatment Plan: Energy Conservation, Safety, Homemaking Skills, Bed mobility training, Functional Ambulation, Transfer training, Coordination Tasks, ROM exercises, Upper extremity strengthening, Balance activities, ADL training , and Endurance Anticipated Frequency (on eval): 1 to 3 times per week (09/08/23905) AM-PAC Help From Another Person Eating Meals: Total (09/08/23905) Help From Another Person Taking Care of Personal Grooming: A little (09/08/23905) Help From Another Person To Put On/Take Off Upper Body Clothing: A lot (09/08/23905) Help From Another Person To Put On/Take Off Lower Body Clothing: A lot (09/08/23905) Help From Another Person Toileting: A lot (09/08/23905) Help From Another Person Bathing: A lot (09/08/23905) OT AM-PAC Score: 12 (09/08/23905) OT AM-PAC t-Scale Score: 30.6 (09/08/23905) HLM (Highest Level of Mobility) Goal: Level 5 standing (1 or more minutes) (09/07/232023) * Vinh Morales, PT - 09/07/2023 1:14 PM ESTAssociated Order(s): ADULT PHYSICAL THERAPY CONSULT IP GENERAL EVALUATION - Physical Therapy [address] [address] Name: Soco Guevara Location: [facility] [id number]-[id number]/D Date: 09/07/2023 Time: 2:15 PM Soco Guevara is a/an 48 year old female. Patient Status: Inpatient Insurance: Payor: [facility]IANISM[email or web address] [employer] [facility] Plan: [employer] PLAN Product Type: *No Product type* Patient Seen: at bedside, nursing cleared patient for therapy Patient Identified By: Name, ID Band and Date Diagnosis: Gait dysfunction, generalized weakness, s/p fall (09/07/231313) Status of treatment: Evaluation completed (09/07/231313) Orders: PT evaluation and treatment (09/07/231313) Weight Bearing Status: Weight bearing as tolerated;RUE;LUE;RLE;LLE (09/07/231313) Precautions: Alarms;Falls;Safety (09/07/231313) Total Treatment Time--free text: 31 minutes (09/07/231313) HPI: Per chart review: "This is a 48 yo woman with history of suspected celiac disease, iron deficiency anemia, colitis, weakness. She was admitted here 2 weeks ago and at the time had severe leg wounds which are thought to be pyoderma gangrenosum. Also, she was seen by GI and ID was consulted via ask-a-doc. She was discharged 10 days ago, and has only seen her pcp in follow up. GI follow up is apparently in November. Since discharge she has been very weak, and today looks weaker than she was 2 weeks ago, at time of prior admission. Leg wounds are improving as per . She returns today for generalized weakness. Two days ago, she fell at home. Also, stool test done on Aug 21, found yeast. " Past Medical History: No past medical history on file. Per chart review, pt has history of Intermittent complete atrioventricular block Past Surgical History: Past Surgical History: Procedure Laterality Date COLONOSCOPY, DIAGNOSTIC (RECTUM) N/A 01/13/2023 poor prep/diverticulosis/hemorrhoids/COLONOSCOPY FLEXIBLE PROXIMAL DIAGNOSTIC performed by Tyler Perez MD at [facility] EGD, FLEXIBLE, DIAGNOSTIC N/A 01/13/2023 esophageal mucosal changes secondary to EOE/biopsies show celiac disease/ESOPHAGOGASTRODUODENOSCOPY(EGD), FLEXIBLE, TRANSORAL, DIAGNOSTIC performed by Tyler Perez MD at [facility] Subjective: Pt expressed willingness to participate in PT consult. Social History/Disposition Lives with: Spouse;Family (daughter) (09/07/231313) Assistance available: Yes (09/07/231313) Dwelling type: Multi-story home (09/07/231313) Entry steps: None (09/07/231313) Inside steps: 10 - 15 (w/ 1 rail) (09/07/231313) Bedroom location: 1st floor (09/07/231313) Bath location: 1st floor full bath (09/07/231313) Prior Level of Function Reported by: Patient;Family (09/07/231313) Ambulation: Ambulatory without device;Ambulatory with assistance and device (amb w/o device prior to admission to [facility] from 08/18/2023-; amb w/ rolling walker and assist of 1 since [facility]from [facility] 08/26/2023) (09/07/231313) Ambulatory Device: Rolling walker (09/07/231313) Devices at home: Rolling walker (09/07/231313) Observations Consciousness: Alert (09/07/231313) Orientation: Oriented times 4 (09/07/231313) Psychosocial: Patient can communicate basic needs;Patient can converse in a social setting (09/07/231313) Other Findings: Yes (09/07/231313) Findings: Light touch sensation;Coordination;Tone (09/07/231313) Light Touch Sensation Results: Intact;LLE;RLE (09/07/231313) Coordination Results: Intact;LLE;RLE (09/07/231313) Tone Results: Intact;LLE;RLE (09/07/231313) Sitting Posture: Forward head;Rounded shoulders (09/07/231313) Standing Posture: Forward head;Rounded shoulders (09/07/231313) Pain: Patient has complaints of pain. Pain located L shoulder 5-6/10 w/ movement; 0/10 at rest. Informed pt's nurse. Range of Motion Range of Motion: WFL (B LE; see OT for B UE) (09/07/231313) Strength Assessment Strength Assessment: Deficits noted (09/07/231313) WNL, except: LLE;RLE (09/07/231313) LLE: 3+/5;Hip;4-/5;Knee;Ankle (09/07/231313) RLE: 3+/5;Hip;4-/5;Knee;Ankle (09/07/231313) P.T. Bed Mobility Roll (Right): Minimal Assistance (09/07/231313) Roll (Left): Minimal Assistance (09/07/231313) Sidelying-Sit: Minimal Assistance (R sidelying due to pain L shoulder) (09/07/231313) Sit-Sidelying: Minimal Assistance (R sidelying due to pain L shoulder) (09/07/231313) Supine-Sit: Minimal Assistance (09/07/231313) Sit-Supine: Minimal Assistance (09/07/231313) Transfers Sit-Stand: Minimal Assistance (09/07/231313) Stand-Sit: Minimal Assistance (09/07/231313) W/C-Bed/Mat: Minimal Assistance (09/07/231313) Ambulation: Distance ambulated (feet): 30 (15 feet x 2) Assistive Device: Rolling walker Assist: Minimal Assistance 1 Gait Characteristics: Decreased speed, Decreased step length, Unsteady, Increased trunk sway, fatigues easily, no heel strike/foot flat B LE, not safe to transfer or amb w/o assistance. Balance Sit (Static): Good (09/07/231313) Sit (Dynamic): Fair (09/07/231313) Stand (Static): Fair (09/07/231313) Stand (Dynamic): Fair (09/07/231313) Patient and or Family Goal(s): to get well and to return home Patient Education Review of Precautions: Safety;Fall (09/07/231313) Safety Awareness: Patient verbalizes insight of current deficits;Patient demonstrates carryover of insight during functional tasks;Patient can communicate basic needs (09/07/231313) Preferred learning method: Combination (09/07/231313) Barriers to learning: Medical Status (09/07/231313) Method of Education: Verbalized to patient;Patient demonstrated task (09/07/231313) Topic of Education: Safety with mobility, Goals/plan of care, Use of assistive device, and Fall prevention Method of Education: Verbal discussion and explanation provided to pt and spouse: verbalized understanding and or agreement of this information Treatment Provided: Gait Training 11 minutes: gait training with rolling walker Evaluation Moderate Complexity 20 minutes - 50019: Patient was cooperative, pleasant, and alert during treatment session. Moderate complexity evaluation performed and 1-2 personal factors or comorbidities were identified that will impact plan of care, including cardiac history and chronic lymphedema in lower legs and chronic leg ulcers. Patient presents with limitations in bed mobility, transfers, gait, balance, endurance, and safety, which will impact plan of care. These limitations will be addressed by the goals set for this patient. Alarm Status Patient positioned in: Bed (supine, HOB elevated, B upper rails up, brakes locked, bed lowest height, spouse w/pt, pillow under B legs w/ B heels off bed, pillow under L arm) (09/07/231313) With: Bed alarm intact and functioning and call denis in reach (09/07/231313) Treatment Status: Treatment at bedside (09/07/231313) Goals: Demonstrate Bed Mobility with: Supine to Sit: contact guard Sit to supine: contact guard Demonstrate Transfers with: Sit to stand: contact guard Stand to sit: contact guard Bed to chair: contact guard Chair to bed: contact guard Demonstrate Ambulation: assistive device: rolling walker distance in feet: 50 or greater level of assistance on level surface: contact guard Increase Safety: w/ functional mobility Time Frame: 10 sessions Assessment: Pt urinated on toilet during PT session and was assisted in cleaning herself by spouse who was present during PT session. Pt c/o dizziness and lightheadedness after supine to sit and reported that it decreased while sitting at edge of bed and ceased by end of PT session; informed pt's nurse. Vital signs as follows obtained while sitting at EOB: blood pressure 93/64 mmHg, heart rate 78 bpm and O2 saturation on room air 99% Pt presents w/ deficits in strength, balance, endurance and functional mobility, AM PAC 16 and is not safe to transfer or amb without assistance. At discharge would consider post acute services which may include out patient therapy or home health. The level of care will be determined in collaboration with the patient, family/caregiver and careteam members. Skilled PT at [facility] is warranted to address deficits in strength, endurance, balance and functional mobility and to continue to assess discharge needs. Deficits requiring P.T. treatment needs: Safety;Mobility;Balance;Weakness;Endurance (09/07/231313) Equipment Needs: Equipment needs: Rolling walker (09/07/231313) Treatment Plan: Bed mobility training, Transfer training, Gait training, Strengthening exercises: BLE, Balance activities, and Educate on safety with functional mobility Anticipated Frequency (on eval): 3 to 5 times per week (09/07/231313) AM PAC Score with Stairs: 16 * Yadira Augustin RDN - 09/07/2023 12:36 PM ESTAssociated Order(s): NUTRITION SERVICES (DIETITIAN) CONSULT IP CLINICAL NUTRITION CONSULT/PROGRESS NOTE [facility] [address] Name: Soco Guevara Location: [facility] [id number]-[id number]/D Date: 09/07/2023 Time: 12:36 PM How patient was identified (select 2): date and Name Discussed in interdisciplinary rounds: Yes Soco Guevara is a 48 year old female being seen for consult by provider, high risk diagnosis , andreduced dietary intake Primary Diagnosis: Generalized weakness Other pertinent information: Patient seen with at bedside. Patient known to provider from previous admission; pt reports she has been eating well, but her weight is trending down, and she hasbeen getting weaker; pt reports she fell. Patient allowed me to perform a nutrition focused physical exam today, presents with mild to severe muscle loss. Patient continues to meet criteria for moderate malnutrition. Will add prostat max and compleat 1.4 supplements for increased energy and proteinintakes. NUTRITION ASSESSMENT: Past medical/surgical history and medications reviewed. Food/Nutrition-Related History Diet: Gluten Free Previously followed diet: Gluten free diet Food Allergies/Intolerances: None Adult Energy Intake: No significant decrease Oral Nutrition Supplement (ONS): None Pertinent medications/vitamins/minerals/supplements: Lasix Pertinent Biochemical Data: Labs reviewed. There are no biochemical abnormalities requiring a change in nutrition plan of care at this time. Nutrition-Focused Physical Findings: Appearance: Ill-appearing and Thin Respiratory support: Supplemental O2 Delivery: Room Air, None Nasal/Oral: No issues identified Digestive: Appetite good Last Bowel Movement: 09/07/23 (09/07/23 0500) Cognition: Awake, alert Skin: Venous ulcer Left calf, right lower leg, right posterior calf Enteral access: None Nutrition Focused Physical Exam: NFPE completed on 09/07/2023 Subcutaneous Fat Loss: Orbital fat pads: Mild Buccal fat: WNL Tricep: WNL Rib: WNL Muscle Loss: Temples: Severe Clavicles: Mild Shoulders: Mild Scapula: Unable to assess Interosseous: WNL Quadriceps: Mild Calves: Unable to assess Anthropometrics Measurements Height: 162.6 cm (5' 4.02") (09/06/232045) Admission weight: 50.6 kg Weight: 50.6 kg (111 lb 9.6 oz) (09/07/23 0500) BMI: 20.07 (09/06/23 1413) Usual Body Weight: 53.2 kg Interpretation of Weight Change Prior to Admission: 5% weight loss in 1 month (Moderate) Nutrition Prescription: Energy needs: 25-30 Kcal/kg Kcal/day: 3412-6060 Based on current weight Protein needs: 1.2-1.4 gm/kg Protein: 61-71 Based on current weight Fluid needs: 30 ml/kg Fluid: 1520 ml/day Based on current weight Malnutrition: Malnutrition Present: Yes (09/07/231313) Adult Malnutrition Classification: Moderate (09/07/231313) Malnutrition Characteristics: Weight loss;Muscle loss (09/07/231313) Malnutrition Care Plan: Patient meets ASPEN/AND criteria for moderate malnutrition. Plan to meet 75% of estimated calorie and 75% of estimated protein requirements via therapeutic diet and a nutrition intervention of oral nutrition supplements. If patient unable to achieve estimatedrequirements over next 7 days, will need to consider enteral nutrition. NUTRITION DIAGNOSIS: Malnutrition moderate related to chronic illness as evidenced by 5% weight loss x 1 month and severe muscle loss. Goals: Patient to consume greater than 75 % of daily meals and 75% of daily supplements within 7 days. NUTRITION INTERVENTION/PLAN: Orders: Oral nutrition supplement added Compleat 1.4 (1 cup provides 350 calories, 18 grams protein, 38 grams carbohydrate) BID ProStat Max (1 oz, 80 calories, 11 grams protein, 60 mg phosphorus, 40 mg potassium) BID Clinical Nutrition Recommendations: Diet: Continue current nutrition plan NUTRITION MONITORING AND EVALUATION: Nursing documentation flowsheets for percent meal intake Tolerance of supplement per patient/nursing report Lab values warranting change with MNT Weight for trends Plan follow-up: Will follow and adjust nutrition plan of care as medical condition requires. Please contact for change(s) in patient condition requiring earlier intervention. Yadira Augustin, MS, RDN, LDN Clinical Dietitian [facility] Available via [employer] Text [phone] * Jessica Colon PA-C - 09/07/2023 8:26 AM ESTAssociated Order(s): GASTROENTEROLOGY CONSULT IP CONSULT - Gastroenterology [facility] [place] [id number] Name: Soco Guevara Location: [address] Date: 09/07/2023 Time: 8:26 AM REQUESTING SERVICE: Medicine REASON FOR CONSULT: persistent enteritis, previous stool culture from 08/21 is positive for yeast HPI: Soco Guevara is a 48 year old female with PMHx iron deficiency anemia, thrombocytosis (thought to be reactive to anemia), chronic lymphedema in lower legs and chronic leg ulcers, admitted aftercoming in with progressive weakness, admitted for the second time in 2 weeks. Prior history: Was admitted 08/18-08/25/23 - at that time was having multiple issues, intermittent complete heart block, weakness, loose stool, leg wounds, leukocytosis of unclear etiology, severe thrombocytosis, PLTwas over 1,000,000. Leg wounds were infected; was suggestive of pyoderma gangrenosum with leg ulcers ; biopsy was recommended but pt declined. She was to follow with wound clinic as an outpatient. Shedeclines the idea of a pacemaker. She was to consider a Zio patch as an outpatient. She was to follow up with Heme-Onc but did not respond to messages to schedule appointments. During admission we saw her as a consult for h/o Celiac. She had undergone EGD and colonoscopy in January 2023, at that time was felt to have EOE on endoscopy, however esophageal biopsies showed reflux esophagitis, and duodenal bx suggestive of active chronic duodenitis w/ erosion and villous atrophy.She was advised to be on gluten free diet and come to the clinic for f/u. She declined office visitfor follow-up, and instead states that she follows with a natural medicine doctor, and has been on a gluten free diet ever since then. TTG was equivocal then EGD was scheduled for November. PPI was recommended. Repeat TTG last admission was neg Results for Celiac haplotype showed positive result for HLA-DQ 2, suggesting she has 1 of the variants associated with celiac disease, however is not per se diagnostic of Celiac as this is commonly seen in the population; genetic counseling was recommended. Stool culture was positive for yeast. Now admitted again for the same issues of weakness, diarrhea, abnormal abd imaging. She's more weakthan she was during her last admission. Labs with again platelets over a million, leukocytosis withWBC of 20 K. GI, Wound Care, Infectious Disease and Hematology all being consulted again. Bcx NGTD,UCx pending. Pt states she takes various supplements vitamins OTC including yeast. CTAP w/ evidence of enteritis, infectious or inflammatory, with diffuse small bowel wall thickening. The small bowel is moderately distended with fluid. US ABD w/ small GB polyps. Patient states that she has intermittent abdominal discomfort, but is a somewhat poor historian, can not tell me much else about this. She has 2-3 bowel movements a day, typically loose. Her appetitehas actually been good, she states she follows a strict GFD. She does not feel she is lost any weight, but her feels that she is lost weight. She was 109 lbs last year and now she is 111 lbs.Denies fevers or chills, nausea vomiting, dysphagia. She feels her leg wounds are improving. Celiac Haplotyping: NTERPRETATION SEE BELOW Comment: The patient has one of the HLA-DQ variants associated with celiac disease. More than 97% of celiac patients carry either HLA-DQ2(DQA1*05/DQB1*02) or HLA-DQ8(DQA1*03/DQB1*0302) or both. However, 39% of the general [place] population carry these HLA-DQ variants, as a consequence, the presence of HLA-DQ2 or DQ8 or both variants is not per se diagnostic of celiac disease. Genetic counseling as needed. HLA-DQ2 Positive HLA-DQ8 Negative HLA-DQA1* 05 HLA-DQA1* 05 HLA-DQB1* 0201 HLA-DQB1* 0201 Results Reviewed by: SEE BELOW EGD 01/2023: - Esophageal mucosal changes secondary to eosinophilic esophagitis. Biopsied. - Normal stomach. - Normal examined duodenum. Biopsied. Colonoscopy 01/2023: - Preparation of the colon was fair. - Diverticulosis in the sigmoid colon. - Internal hemorrhoids. - The examination was otherwise normal on direct and retroflexion views. - No specimens collected. A. Duodenum, biopsy: Active chronic duodenitis with erosion, and villous atrophy; see note. Note for part A: The duodenal biopsy reveals active chronic inflammation with associated villous atrophy and focal erosion. There is minimal to focal mild increase in intraepithelial lymphocytes. Although the histological finding could represent nonspecific active chronic duodenitis such as peptic duodenitis or drug/NSAID induced injury, with the villous atrophy, Celiac disease can not be excluded. A serology test for Celiac disease is suggested. If serology test for celiac disease are positive, the histological features would be compatible with celiac disease although in this biopsy the intraepithelial lymphocytosis does not appear to be parallel with the villous atrophy. Immunostain for CMV is negative. Clinical correlation. B. Esophagus, biopsy: Esophagitis with feature most consistent with reflux esophagitis. No intraepithelial eosinophilia identified. No columnar mucosa present for evaluation. HISTORY: Past Medical History: No past medical history on file. Past Surgical History: Past Surgical History: Procedure Laterality Date COLONOSCOPY, DIAGNOSTIC (RECTUM) N/A 01/13/2023 poor prep/diverticulosis/hemorrhoids/COLONOSCOPY FLEXIBLE PROXIMAL DIAGNOSTIC performed by Tyler Perez MD at [facility] EGD, FLEXIBLE, DIAGNOSTIC N/A 01/13/2023 esophageal mucosal changes secondary to EOE/biopsies show celiac disease/ESOPHAGOGASTRODUODENOSCOPY(EGD), FLEXIBLE, TRANSORAL, DIAGNOSTIC performed by Tyler Perez MD at [facility] Social History: Social History Tobacco Use Smoking status: Never Smokeless tobacco: Never Vaping Use Vaping Use: Never used Substance Use Topics Alcohol use: Never Drug use: Never Family History: Family History Problem Relation Age of Onset Colon cancer Grandfather (Maternal) Allergies: Monoferric [ferric derisomaltose] ROS: A complete review of systems is as stated above, otherwise, all others negative. PHYSICAL EXAMINATION: Most Recent Vital Signs: BP: 94 mmHg/61 mmHg (09/07/23742) Pulse: 73 (09/07/23742) Temp: 36.28 C (09/07/23742) Temp Summary: Temp Min: 36.3 C (97.3 F) Max: 37.9 C (100.2 F) SpO2: 98 % (09/07/23742) O2 flow rate: Supplemental O2 Delivery: Room Air, None (09/07/23 0300) Vital Signs Last 24 Hours: Systolic BP: Most Recent Systolic BP Av mmHg Min: 88 mmHg Max: 109 mmHg Temperature: Most Recent Temperature Av.3 C Min: 36.28 C Max: 37.89 C Pulse: Pulse Av Min: 70 Max: 107 Respirations: Resp Av.7 Min: 16 Max: 20 SpO2: SpO2 Av.6 % Min: 96 % Max: 99 % Constitutional: no acute distress, (+) chronically ill; looks weak HEENT: normal: normocephalic, atraumatic; no masses, tenderness, or adenopathy Eyes: no scleral icterus, redness, or injection Neck: supple, normal range of motion CV: normal rate and rhythm Chest: normal respiratory effort, lungs clear to auscultation Abdomen: normal: soft, bowel sounds normal, no masses, slight periumbilical tenderness, non distended, no rebound, guarding Extremities: lower legs wrapped in ramos bandages Skin: warm and dry, no rashes Neuro: normal mental status exam Psych: normal mood and affect, memory normal LABS: Labs reviewed. Recent Results (from the past 24 hour(s)) BLOOD GAS, VENOUS Collection Time: 09/06/23 2:36 PM Result Value Ref Range Temperature 37.0 C [...] 23.0 - 31.0 mmol/L HEPATIC FUNCTION PANEL Collection Time: 09/06/23 2:36 PM Result Value Ref Range Albumin 3.3 (L) 3.8 - 5.0 g/dL AST 33 10 - 35 U/L Alkaline Phosphatase 142 (H) 35 - 130 U/L ALT 27 10 - 35 U/L Bilirubin, Total 0.2 <=1.2 mg/dL Bilirubin, Direct <0.2 0.0 - 0.3 mg/dL Protein 6.8 6.0 - 8.3 g/dL LACTATE WITH REFLEX IF ABNORMAL Collection Time: 09/06/23 2:36 PM Result Value Ref Range Lactate 1.7 0.4 - 2.0 mmol/L PT INR Collection Time: 09/06/23 2:36 PM Result Value Ref Range Prothrombin Time 13.7 11.6 - 15.2 seconds INR 1.1 0.8 - 1.2 TROPONIN T, HIGH SENSITIVITY Collection Time: 09/06/23 2:36 PM Result Value Ref Range Troponin T, High Sensitivity <6 <=14 ng/L CBC Collection Time: 09/06/23 2:36 PM Result Value Ref Range WBC 20.03 (H) [...] nRBCs 0 <=0 /100 WBCs DIFFERENTIAL, AUTOMATED Collection Time: 09/06/23 2:36 PM Result Value Ref Range WBC 20.03 (H) [...] Immature Granulocytes 0.15 0.00 - 0.20 K/uL CULTURE, BLOOD Collection Time: 09/06/23 2:36 PM Result Value Ref Range Blood Culture Growth No growth to date BASIC METABOLIC PANEL Collection Time: 09/06/23 2:36 PM Result Value Ref Range BUN 6 6 [...] Calcium 9.1 8.4 - 10.2 mg/dL MAGNESIUM Collection Time: 09/06/23 2:36 PM Result Value Ref Range Magnesium 2.2 1.5 - 2.6 mg/dL PHOSPHORUS Collection Time: 09/06/23 2:36 PM Result Value Ref Range Phosphorus 3.8 2.5 - 4.8 mg/dL CULTURE, BLOOD Collection Time: 09/06/23 2:41 PM Result Value Ref Range Blood Culture Growth No growth to date MONONUCLEOSIS HETEROPHILE ANTIBODY Collection Time: 09/06/23 2:41 PM Result Value Ref Range Mononucleosis Antibody Negative Negative LYME DISEASE ANTIBODY SCREEN Collection Time: 09/06/23 2:41 PM Result Value Ref Range Lyme Disease Antibody Screen Negative Negative RESPIRATORY PATHOGEN PANEL, PCR Collection Time: 09/06/23 2:55 PM Result Value Ref Range Adenovirus by PCR [...] Negative Bordetella parapertussis by PCR Negative Negative URINALYSIS, REFLEX TO CULTURE (CUP ONLY) Collection Time: 09/06/23 7:44 PM Result Value Ref Range Urinalysis, Reflex to Culture Specimen Specimen collected and received URINALYSIS, REFLEX TO CULTURE Collection Time: 09/06/23 7:44 PM Result Value Ref Range Color, Urine Yellow Light Yellow, Yellow, Dark Yellow Clarity, Urine Clear Clear Glucose, Urine Negative Negative mg/dL Bilirubin, Urine Negative Negative Ketone, Urine Negative Negative mg/dL Specific Colbert, Urine 1.025 1.003 - 1.030 Blood, Urine Negative Negative pH, Urine 6.5 5.0 - 7.5 Units Protein, Urine Negative Negative mg/dL Urobilinogen, Urine 0.2 0.2, 1.0 mg/dL Nitrite, Urine Negative Negative Esterase, Urine Trace (A) Negative RBC, Urine 0-2 0 - 2 /HPF WBC, Urine 3-5 (A) 0 - 2 /HPF Bacteria, Urine 26-50 (A) 0 - 25 /HPF Culture, Urine CBC Collection Time: 09/07/23 4:32 AM Result Value Ref Range WBC 15.44 (H) [...] 11.1 fL nRBCs 0 <=0 /100 WBCs BASIC METABOLIC PANEL Collection Time: 09/07/23 4:33 AM Result Value Ref Range BUN 5 (L) [...] mg/dL Calcium 8.4 8.4 - 10.2 mg/dL MAGNESIUM Collection Time: 09/07/23 4:33 AM Result Value Ref Range Magnesium 2.1 1.5 - 2.6 mg/dL PHOSPHORUS Collection Time: 09/07/23 4:33 AM Result Value Ref Range Phosphorus 3.5 2.5 - 4.8 mg/dL IMAGING: CT ABD/PELVIS W IV CONTRAST - WO ORAL CONTRAST Final Result PROCEDURE INFORMATION: Exam: CT Abdomen And Pelvis [...] small bowel is moderately distended with fluid. THIS DOCUMENT HAS BEEN ELECTRONICALLY SIGNED BY JAREN MITCHELL MD US ABDOMEN LIMITED Final Result PROCEDURE INFORMATION: Exam: US Abdomen, Limited; Right Upper Quadrant Exam date and time: 09/06/2023 3:56 PM Age: 48 years old Clinical indication: Other: Weakness, diarrhea; Additional info: Elevated alkaline phosphatase, generalized weakness TECHNIQUE: Imaging protocol: Real time ultrasound of the abdomen with image documentation. Limited exam focused on the right upper quadrant. COMPARISON: 1. US ABDOMEN COMPLETE 05/10/2019 3:[address] ABD/PELVIS W IV CONTRAST - WO ORAL CONTRAST 08/19/2023 9:25 AM FINDINGS: Liver: Unremarkable. Gallbladder: The gallbladder is incompletely distended. Nonspecific diffuse borderline gallbladder wall thickening measuring 3-4 mm, may be due to incomplete distension. Small gallbladder polyps measuring up to 4 mm. No evidence of cholelithiasis or pericholecystic free fluid. No sonographic Braun sign per synchro assembler report. Biliary ducts: No intrahepatic or extrahepatic biliary ductal dilation. Pancreas: The pancreas is diffusely hypoechoic, similar to prior. Mildly prominent pancreatic duct, also similar to prior. Right kidney: No right hydronephrosis. Extrarenal pelvis on the right is similar to prior. IMPRESSION IMPRESSION: 1. Nonspecific diffuse borderline gallbladder wall thickening measuring 3-4 mm, may be due to incomplete distension. 2. Small gallbladder polyps measuring up to 4 mm. THIS DOCUMENT HAS BEEN ELECTRONICALLY SIGNED BY JAREN MITCHELL MD XR ABDOMEN OBSTRUCT SERIES W CHEST 1 VIEW Final Result PROCEDURE INFORMATION: Exam: XR Complete Acute Abdomen Series Including Chest Exam date and time: 09/06/2023 3:10 PM Age: 48 years old Clinical indication: Other: Generalized weakness and pain TECHNIQUE: Imaging protocol: Radiologic exam. Complete acute abdomen series, including 2 or more views of the abdomen and a single view chest. COMPARISON: CT ABD/PELVIS W IV CONTRAST - WO ORAL CONTRAST 08/19/2023 9:25 AM FINDINGS: Lungs: No evidence of focal consolidation. Pleural spaces: No evidence of pleural effusion or pneumothorax. Heart/Mediastinum: Cardiomediastinal silhouette is not abnormally enlarged. Gastrointestinal tract: Nonobstructive bowel gas pattern. Intraperitoneal space: No evidence of free air under the diaphragm. Bones/joints: Unremarkable for age. Soft tissues: Unremarkable. IMPRESSION IMPRESSION: Nonobstructive bowel gas pattern. THIS DOCUMENT HAS BEEN ELECTRONICALLY SIGNED BY JAREN MITCHELL MD XR SHOULDER, 2 OR MORE VIEWS Final Result PROCEDURE INFORMATION: Exam: XR Left Shoulder Exam date and time: 09/06/2023 3:15 PM Age: 48 years old Clinical indication: Other: Generalized weakness and pain; Additional info: Fall with left shoulder pain TECHNIQUE: Imaging protocol: Radiologic exam of the left shoulder. Views: 2 or more views. COMPARISON: CT PET^[facility]) 01/20/2023 2:48 PM FINDINGS: Bones/joints: Bony structures are intact. Joint spaces are preserved. Soft tissues: Unremarkable. IMPRESSION IMPRESSION: No evidence of acute fracture or subluxation. THIS DOCUMENT HAS BEEN ELECTRONICALLY SIGNED BY JAREN MITCHELL MD CT HEAD/BRAIN WO CONTRAST Final Result PROCEDURE INFORMATION: Exam: CT Head Without Contrast Exam date and time: 09/06/2023 3:03 PM Age: 48 years old Clinical indication: Other: Fall, generalized weakness TECHNIQUE: Imaging protocol: Computed tomography of the head without contrast. Radiation optimization: All CT scans at this facility use at least one of these dose optimization techniques: automated exposure control; mA and/or kV adjustment per patient size (includes targeted exams where dose is matched to clinical indication); or iterative reconstruction. COMPARISON: CT HEAD/BRAIN WO CONTRAST 08/18/2023 7:56 PM FINDINGS: Brain: Normal. No hemorrhage. Unremarkable white matter. No mass effect. Cerebral ventricles: No ventriculomegaly. Paranasal sinuses: Visualized sinuses are unremarkable. No fluid levels. Mastoid air cells: Visualized mastoid air cells are well aerated. Bones/joints: Unremarkable. No acute fracture. Soft tissues: Unremarkable. IMPRESSION IMPRESSION: No acute intracranial abnormality. THIS DOCUMENT HAS BEEN ELECTRONICALLY SIGNED BY YOVANA KASPER MD CT C SPINE WO CONTRAST Final Result PROCEDURE INFORMATION: Exam: CT Cervical Spine Without Contrast Exam date and time: 09/06/2023 3:03 PM Age: 48 years old Clinical indication: Other: Neck pain; Trauma; Significant trauma TECHNIQUE: Imaging protocol: Computed tomography of the cervical spine without contrast. Radiation optimization: All CT scans at this facility use at least one of these dose optimization techniques: automated exposure control; mA and/or kV adjustment per patient size (includes targeted exams where dose is matched to clinical indication); or iterative reconstruction. COMPARISON: CT PET^[facility] ([facility]) 01/20/2023 2:48 PM FINDINGS: Bones/joints: No acute fracture. Normal alignment. No significant disc bulge or herniation. No severe spinal canal stenosis. No significant neural foraminal narrowing. Lungs: Lung apices are normal. Soft tissues: Unremarkable. IMPRESSION IMPRESSION: No acute findings. THIS DOCUMENT HAS BEEN ELECTRONICALLY SIGNED BY YOVANA KASPER MD IMPRESSION: Soco Guevara is a(n) 48 year old female who presents with repeat admission for weakness. C/o loose stools (no change from previous), continues to have PLT over 1 million, leukocytosis, and abnormal CTAP w/o oral contrast, w/ IV contrast, w/ diffuse small bowel wall thickening, distention with fluid. Previous EGD last year felt to have possible celiac versus EOE, and she has been following a strictgluten free diet since then. Her TTG was negative last admission. HLA haplotyping + for 1 variant for Celiac; though not cut and dry diagnostic of such. Would not expect her to be having these issuesin the setting of compliance with GFD. Need to evaluate for nonGluten enteropathy (intestinal lymphoma, particularly given her hematology abnormalities, vs autoimmune, inflammatory, peptic duodenitis, etc) RECOMMENDATIONS/PLAN: - Will plan EGD/SBE tomorrow for epeat evalu of her small bowel - NPO at midnight - Agree with nutrition, wound, ID, heme/onc consults - Could consider MRE/CTE - Await infectious w/u; BCx, UCx - Unclear what clinical significance of her prior yeast result in her stool; it's possible it's from exogenous ingestion (pt uses yeast powder in her foot). - Continue GFD - Daily PPI Thank you for the opportunity to be involved in this patient's care. Please see attending addendum for further discussions/recommendations. I have discussed the case with my attending, Dr Medrano. Associated attestation - Kendra Medrano DO - 09/07/2023 1:16 PM EST I have reviewed the advanced practitioner's documentation on the date of service referenced in note, and I agree with, and take responsibility for the plan of care. Abdomen soft and non-tender. 48 y/o F with previously diagnosed celiac based on her duodenal biopsies on a gluten free diet, ANASTASIA, thrombocytosis, pyoderma gangrenosum admitted again with recurrent weakness. CT scan showing persistent enteritis with small bowel fluid despite a gluten free diet (TTG IGA negative last admission).She did have celiac haplotyping and did have 1 variant. Would recommend to obtain a push enteroscopy tomorrow with biopsies of the duodenum and jejunum given persistent enteritis despite a gluten free diet to assess for other etiologies given her severe malnutrition. Nutrition and hematology are consulted. NPO at midnight. Infectious work up currently in process. Continue gluten free diet. Also recommend PT/OT given her severe weakness with falls. Kendra Medrano DO Gastroenterology and Hepatology * Mj Anthony MD - 09/07/2023 7:56 AM ESTAssociated Order(s): HEMATOLOGY CONSULT IP CONSULT - Oncology [facility] [id number] Name: Soco Guevara Location: [facility] [id number] Date: 09/07/2023 Time: 7:57 AM REQUESTING SERVICE: Hospitalist REASON FOR CONSULT: anemia and thrombocytosis REFERRING PHYSICIAN: Mychal Hampton MD DIAGNOSIS: 1. Iron deficiency with reactive thrombocytosis, no evidence of primary bone marrow disorder treated in the past with intravenous mono ferric as well as Venofer. Probably representing a combination of blood loss and malabsorption. Elevated white count secondary to lower extremity cellulitis. 2. Folic acid deficiency secondary to malabsorption 3. Celiac disease, high probability of inflammatory bowel disease as well. 4. Pyoderma gangrenosum lower extremities, improving on antibiotics. 5. 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 Elevated kappa light chains of no clinical significance with normal K/L ratio, negative PET scan HISTORY OF PRESENT ILLNESS: 48-year-old white female admitted to the hospital with worsening weakness in the setting of suspected celiac disease, colitis, with documented iron deficiency in the past. Patient had been admitted in earlier August 2023 with pyoderma gangrenosum involving both lower extremities apparently improving on antibiotic therapy. Patient fall at home 2 days prior to admissionwith Sherron found on stool examination. Patient was found to be anemic with thrombocytosis for this reason hematology was consulted. Patient was being followed by Dr. Merchant: = Hematology/Oncology diagnosis: Iron-deficiency anemia, acute on chronic- Secondary to celiac disease (baseline hemoglobin was 10.6in 2018, recently was 6.2 in November 2022) Thrombocytosis, likely reactive 2/2 ANASTASIA. Lucent lesions at T9, T13, and L3 concerning for osteolytic metastases or multiple myeloma--> Nofocal activity on PET. Elevated kappa light chains- With normal K/L ration, and No BJP in urine. Other comorbidities: Chronic bilateral leg ulcers Chronic diarrhea Treatment rendered: pRBCs transfusion on 12/20/2022 Monoferric IV on 12/23/2022---> Stopped after few minutes because of SOB + fainting. Patient doesnot wish to try it again. IV Monoferric 300 mg IV weekly x 4 (01/16/2023- 02/06/2023)--> Developed mild rash after 3rd week. Current treatment: Vitron C Q day ===== Outpatient workup for primary bone marrow disorder was unremarkable. Celiac disease is definitely apossibility. Patient has been treated in the past with mono ferric 1000 mg IV on 12/23/2022 along with 4 infusions of Venofer 300 mg IV weekly from 01/16/2023 through 02/06/2023. Patient continues to have abdominal pain without loose stools but with profound weakness. She has been compliant with a gluten free diet. She denies fever, night sweats, with improvement in bilaterallower extremity cellulitis. Patient denies cough, PND, orthopnea, palpitations. Patient denies headache, focal weakness. PAST MEDICAL HISTORY: No past medical history on file. PAST SURGICAL HISTORY: Past Surgical History: Procedure Laterality Date COLONOSCOPY, DIAGNOSTIC (RECTUM) N/A 01/13/2023 poor prep/diverticulosis/hemorrhoids/COLONOSCOPY FLEXIBLE PROXIMAL DIAGNOSTIC performed by Tyler Perez MD at [facility] EGD, FLEXIBLE, DIAGNOSTIC N/A 01/13/2023 esophageal mucosal changes secondary to EOE/biopsies show celiac disease/ESOPHAGOGASTRODUODENOSCOPY(EGD), FLEXIBLE, TRANSORAL, DIAGNOSTIC performed by Tyler Perez MD at [facility] FAMILY HISTORY: Family History Problem Relation Age of Onset Colon cancer Grandfather (Maternal) SOCIAL HISTORY: Social History Tobacco Use Smoking status: Never Smokeless tobacco: Never Vaping Use Vaping Use: Never used Substance Use Topics Alcohol use: Never Drug use: Never ALLERGIES: Monoferric [ferric derisomaltose] REVIEW OF SYSTEMS: Review of systems other than that discussed above is non contributory. PHYSICAL EXAM: Most Recent Vital Signs: BP: 94 mmHg/61 mmHg (09/07/23742) Pulse: 73 (09/07/23742) Temp: 36.28 C (09/07/23742) Temp Summary: Temp Min: 36.3 C (97.3 F) Max: 37.9 C (100.2 F) SpO2: 98 % (09/07/23742) O2 flow rate: Supplemental O2 Delivery: Room Air, None (09/07/23 0300) PE: ECOG PS 2 PHYSICAL EXAMINATION: General Appearance: Chronically ill-appearing in moderate distress from abdominal discomfort . Vitals were reviewed. HEENT: No oral or pharyngeal masses, ulceration or thrush noted, no sinus tenderness. Neck is supple with no thyromegaly or JVD noted. Lymph Nodes: Bilateral inguinal adenopathy. Breasts: Not examined. Lungs/Thorax: No rales, rhonchi, or dullness to percussion. Heart: Regular rate and rhythm, normal S1, S2, no appreciable murmurs, rubs, gallops Abdomen: Soft, nontender, bowel sounds present, no appreciable hepatosplenomegaly, no palpable masses Extremities: Good pulses bilaterally, no peripheral edema. Bandages [id number] bilaterally with+1 edema Skin: Normal skin tone with no rash, petechiae, ecchymosis noted. Musculoskeletal: No pain on palpation over bony prominence, no edema, no evidence of gout, no jointor bony deformity Neurologic: No focal sensory or motor deficits. LABS: Labs reviewed as indicated below: Latest Reference Range & Units 08/26/23 07:08 09/06/23 14:36 09/07/23 04:32 WBC 4.00 - 10.80 K/uL 17.92 (H) 20.03 (H) 15.44 (H) HGB 12.0 - 15.3 g/dL 12.3 13.7 11.9 (L) Hemoglobin, Whole Blood 12.0 - 15.3 g/dL 13.9 HCT 36.0 - 45.2 % 36.7 42.2 36.4 MCV 81.5 - 97.5 fL 86.4 87.2 86.1 PLT 140 - 400 K/uL 1,055 (HH) 1,061 (HH) 924 (H) Absolute Neutrophils 1.80 - 7.70 K/uL 15.59 (H) Absolute Lymphocytes 1.00 - 4.80 K/ul 2.21 Absolute Monocytes 0.00 - 1.10 K/uL 1.70 (H) Absolute Eosinophils 0.00 - 0.70 K/uL 0.23 Absolute Basophils 0.00 - 0.20 K/uL 0.15 . Latest Reference Range & Units 08/26/23 07:08 09/06/23 14:36 09/07/23 04:33 Sodium 135 - 146 mmol/L 143 138 139 Potassium 3.5 - 5.1 mmol/L 3.3 (L) 3.5 3.6 Chloride 98 - 107 mmol/L 111 (H) 102 106 CO2 22 - 32 mmol/L 22 21 (L) 21 (L) BUN 6 - 20 mg/dL 3 (L) 6 5 (L) Creatinine 0.5 - 1.0 mg/dL 0.4 (L) 0.4 (L) 0.3 (L) Estimated Glomerular Filtration Rate >=60 mL/min >90 >90 >90 Anion Gap 7 - 15 mmol/L 10 15 12 Glucose 70 - 120 mg/dL 103 87 100 Calcium 8.4 - 10.2 mg/dL 8.4 9.1 8.4 Magnesium 1.5 - 2.6 mg/dL 2.2 2.1 Phosphorus 2.5 - 4.8 mg/dL 3.8 3.5 Lactate 0.4 - 2.0 mmol/L 1.7 Bicarbonate, Whole Blood 23.0 - 31.0 mmol/L 25.7 Protein 6.0 - 8.3 g/dL 6.8 Latest Reference Range & Units 08/18/23 19:47 09/06/23 14:36 Albumin 3.8 - 5.0 g/dL 2.8 (L) 3.3 (L) AST 10 - 35 U/L 23 33 ALT 10 - 35 U/L 18 27 Alkaline Phosphatase 35 - 130 U/L 144 (H) 142 (H) Bilirubin, Total <=1.2 mg/dL 0.2 0.2 Bilirubin, Direct 0.0 - 0.3 mg/dL <0.2 RADIOLOGY: IMPRESSION: CT abdomen pelvis 09/06/2023 Evidence of enteritis, infectious or inflammatory, with diffuse small bowel wall thickening. The small bowel is moderately distended with fluid IMPRESSION: CT abdomen pelvis 08/19/2023 1. Fluid-filled small and large bowel. Correlate with any history of diarrheal illness. No significant bowel wall thickening. 2. Mild mesenteric lymphadenopathy and mesenteric fat stranding overall similar to prior exam on 12/19/2022. Findings could be related to mild enteritis. 3. Findings concerning for possible pelvic venous insufficiency, correlate with any history of chronic pelvic pain. IMPRESSION: PET scan 01/25/2023 1. Lucent lesions in the spine are without associated activity, likely representing vertebral body hemangiomas. 2. Fluid distended small bowel with a degree of jejunoileal fold reversal, as well as multiple prominent mesenteric lymph nodes, including one with low attention cavitation. This constellation of findings can be seen with Celiac disease, noting question of celiac disease on recent duodenal biopsy and equivocal serology. EGD 01/13/2023: Impression: - Esophageal mucosal changes secondary to eosinophilic esophagitis. Biopsied. - Normal stomach. - Normal examined duodenum. Biopsied. COLONOSCOPY 01/13/2023 Impression: - Preparation of the colon was fair. - Diverticulosis in the sigmoid colon. - Internal hemorrhoids. - The examination was otherwise normal on direct and retroflexion views. - No specimens collected. [facility], [facility] [id number] Order: [id number] Status: Final result Visible to patient: No (inaccessible in MyChart) Next appt: 09/15/2023 at 02:30 PM in *Hem/Onc* (Rowdy Merchant MD) Specimen Information: Blood, Venous 0 Result Notes Component 08/21/2023 Indication for Procedure Thrombocytosis Results Summary Fusion Results BCR-ABL1 Fusion transcripts not detected. Gene Results [employer] Accession Exons CALR Mutation not detected [id number] 1,2,3,4,5,6,7,8,9 CSF3R Mutation not detected [id number] 14,17 [id number] 14,17 [id number] 14,17,18 JAK2 Mutation not detected [id number] 12,13,14,15 MPL Mutation not detected [id number] 3,4,10,12 Results Detail No BCR-ABL1 fusion or clinical relevant mutation in CALR, CSF3R, JAK2 or MPL genes is detected. ===== HLA TYPING FOR CELIAC DISEASE Component 08/21/2023 INTERPRETATION SEE BELOW Comment: The patient has one of the HLA-DQ variants associated with celiac disease. More than 97% of celiac patients carry either HLA-DQ2(DQA1*05/DQB1*02) or HLA-DQ8(DQA1*03/DQB1*0302) or both. However, 39% of the general [place] population carry these HLA-DQ variants, as a consequence, the presence of HLA-DQ2 or DQ8 or both variants is not per se diagnostic of celiac disease. Genetic counseling as needed. HLA-DQ2 Positive HLA-DQ8 Negative HLA-DQA1* 05 HLA-DQA1* 05 HLA-DQB1* 0201 HLA-DQB1* 0201 SURGICAL PATHOLOGY: [id number] Follow-up Encounter Component Final Diagnosis A. Duodenum, biopsy: Active chronic duodenitis with erosion, and villous atrophy; see note. Note for part A: The duodenal biopsy reveals active chronic inflammation with associated villous atrophy and focal erosion. There is minimal to focal mild increase in intraepithelial lymphocytes. Although the histological finding could represent nonspecific active chronic duodenitis such as peptic duodenitis or drug/NSAID induced injury, with the villous atrophy, Celiac disease can not be excluded. A serology test for Celiac disease is suggested. If serology test for celiac disease are positive, the histological features would be compatible with celiac disease although in this biopsy the intraepithelial lymphocytosis does not appear to be parallel with the villous atrophy. Immunostain for CMV is negative. Clinical correlation. B. Esophagus, biopsy: Esophagitis with feature most consistent with reflux esophagitis. No intraepithelial eosinophilia identified. No columnar mucosa present for evaluatio ASSESSMENT: 1. Iron deficiency with reactive thrombocytosis, no evidence of primary bone marrow disorder treated in the past with intravenous mono ferric as well as Venofer. Probably representing a combination of blood loss and malabsorption. Elevated white count secondary to lower extremity cellulitis. 2. Folic acid deficiency secondary to malabsorption 3. Celiac disease, high probability of inflammatory bowel disease as well. 4. Pyoderma gangrenosum lower extremities, improving on antibiotics. 5. 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 Elevated kappa light chains of no clinical significance with normal K/L ratio, negative PET scan PLAN: 1. Gi consult already been ordered. 2. Check iron studies, iron screen and ferritin---ordered 3. Folic acid 5 mg daily p.o. 4. Nutrition consult regarding celiac disease diet to ensure compliance. 5. Patient will probably need treatment for inflammatory bowel disease. 6. Please refer to Hematology/Oncology Clinic at discharge. To see Dr. Merchant I appreciate the opportunity of sharing in her care. * Jocy Nur LPN - 09/07/2023 7:40 AM ESTAssociated Order(s): WOUND CONSULT IP Images from the original note were not included. Order Date:09/06/2023 Ordering User:MICHAELLE HUNTER [[id number]] Attending Provider:Darien Koo MD [[id number]] Authorizing Provider: Michaelle Hunter PA-C [[id number]] Department:EMERGENCY MEDICINE [facility][[id number]] Order Specific Information Order: WOUND CONSULT IP [CUSTOM: [id number] ] Order #: [id number]: [id number] Priority: Routine Class: Nursing Unit Reason for Consult: -> leg wounds Consulting Provider: -> Janett Provider Released on: 09/06/2023 8:11 PM Priority: Routine Class: Nursing Unit Reason for Consult: -> leg wounds Consulting Provider: -> Janett Provider Released on: 09/06/2023 8:11 PM Wound Care consult done for leg wounds. HPI; Information obt from chart, and patient: 48 yo woman with history of suspected celiac disease (No serological evidence of celiac disease), iron deficiency anemia, colitis, weakness. She was admitted here 2 weeks ago and at the time had severe leg wounds which are thought to be pyoderma gangrenosum. Also, she was seen by GI and ID was consulted via ask-a-doc. She was discharged 10 days ago, and has only seen her pcp in follow up. GI follow up is apparently in November. Since discharge she has been very weak, and today looks weaker than she was 2 weeks ago, at time of prior admission. Leg wounds are improving as per . She returns today for generalized weakness. Two days ago, she fell at home. Also, stool test done on Aug 21, found yeast. Wound care was asked to see pt by Michaelle Hunter PA-C for leg wounds. Pt is known to wound care from previous hospitalization. She was seen by GS who attempted Bx however pt declined Bx at that time. She is being treated OP by Dr Barker. She has an appointment with Dr. Valles on 09/20/23 in wound clinic. present at time of assessment/treatment. He reports family have been doing daily dressing changes at home. Past medical history: No past medical history on file. Past Surgical History: Procedure Laterality Date COLONOSCOPY, DIAGNOSTIC (RECTUM) N/A 01/13/2023 poor prep/diverticulosis/hemorrhoids/COLONOSCOPY FLEXIBLE PROXIMAL DIAGNOSTIC performed by Tyler Perez MD at [facility] EGD, FLEXIBLE, DIAGNOSTIC N/A 01/13/2023 esophageal mucosal changes secondary to EOE/biopsies show celiac disease/ESOPHAGOGASTRODUODENOSCOPY(EGD), FLEXIBLE, TRANSORAL, DIAGNOSTIC performed by Tyler Perez MD at [facility] Family History Problem Relation Age of Onset Colon cancer Grandfather (Maternal) Social History Socioeconomic History Marital status: Spouse name: Not on file Number of children: Not on file Years of education: Not on file Highest education level: Not on file Occupational History Not on file Tobacco Use Smoking status: Never Smokeless tobacco: Never Vaping Use Vaping Use: Never used Substance and Sexual Activity Alcohol use: Never Drug use: Never Sexual activity: Not on file Other Topics Concern Not on file Social History Narrative Not on file Social Determinants of Health Financial Resource Strain: Not on file Food Insecurity: Not on file Transportation Needs: Not on file Physical Activity: Not on file Stress: Not on file Social Connections: Not on file Intimate Partner Violence: Not on file Housing Stability: Not on file Allergies: Review of patient's allergies indicates: Allergen Reactions Monoferric [Ferric Derisomaltose] SOB and lost consciousness Code status: Code Status: Full Code Benson: 14 09/06/232049 Benson Scale - Daily Sensory Perception 3 Moisture 4 Activity 2 Mobility 2 Nutrition 1 Friction and Shear 2 Benson Score (auto-calculation) 14 Support surface: standard mattress Routine repositioning past 24 hrs: refuses at times. Moisture management past 24 hrs:moisture absorbent pads. Nutritional support: High Calorie/High Protein Supplement - Orders Placed This Encounter Procedures Adult Complex Diet : Gluten Free Focused Wound Assessment: VS: BP 96/60 | Pulse 107 | Temp 37.7 C (99.9 F) (Tympanic) | Resp 18 | Ht 1.626 m (5' 4.02") | Wt 50.6 kg (111 lb 9.6 oz) | LMP 02/04/2022 (Approximate) | SpO2 96% | BMI 19.15 kg/m | BSA 1.51 m General: ill appearing. Weak and cachetic Neuro: AA&O MS: AROM. No deformities. Vascular: no edema. Chronic brown discoloration. + DP & PT pulses 2/4. LOSS PREVENTION AND SAFETY MANAGER intact. Integumentary:BLE w/ multi scattered open areas in various stages of healing and size. granular in appearance. No purulence, necrosis, fluctuance or odor. Epithelial edges and scarring noted. Mild discomfort at site of ulcers. PULSE SCALE: 4=Aneurysmal; 3=Normal; 2=Diminished; 1=Barely Palpable; 0=Absent Review of Labs/Tests: Latest Reference Range & Units 09/07/23 04:32 09/07/23 04:33 Sodium 135 - 146 mmol/L 139 Potassium 3.5 - 5.1 mmol/L 3.6 Chloride 98 - 107 mmol/L 106 CO2 22 - 32 mmol/L 21 (L) BUN 6 - 20 mg/dL 5 (L) Creatinine 0.5 - 1.0 mg/dL 0.3 (L) Estimated Glomerular Filtration Rate >=60 mL/min >90 Anion Gap 7 - 15 mmol/L 12 Glucose 70 - 120 mg/dL 100 Calcium 8.4 - 10.2 mg/dL 8.4 Magnesium 1.5 - 2.6 mg/dL 2.1 Phosphorus 2.5 - 4.8 mg/dL 3.5 CBC Rpt ! WBC 4.00 - 10.80 K/uL 15.44 (H) HGB 12.0 - 15.3 g/dL 11.9 (L) HCT 36.0 - 45.2 % 36.4 MCV 81.5 - 97.5 fL 86.1 PLT 140 - 400 K/uL 924 (H) (L): Data is abnormally low !: Data is abnormal (H): Data is abnormally high Rpt: View report in Results Review for more information Latest Reference Range & Units 09/06/23 14:36 CBC Rpt !! CBC WITH WBC DIFFERENTIAL Rpt !! WBC 4.00 - 10.80 K/uL 20.03 (H) HGB 12.0 - 15.3 g/dL 13.7 Hemoglobin, Whole Blood 12.0 - 15.3 g/dL 13.9 HCT 36.0 - 45.2 % 42.2 MCV 81.5 - 97.5 fL 87.2 PLT 140 - 400 K/uL 1,061 (HH) Absolute Neutrophils 1.80 - 7.70 K/uL 15.59 (H) Absolute Lymphocytes 1.00 - 4.80 K/ul 2.21 Absolute Monocytes 0.00 - 1.10 K/uL 1.70 (H) Absolute Eosinophils 0.00 - 0.70 K/uL 0.23 Absolute Basophils 0.00 - 0.20 K/uL 0.15 !!: Data is critical (HH): Data is critically high (H): Data is abnormally high Rpt: View report in Results Review for more information Interventions/treatments: Pt was seen and examined at bedside. Introduces self and role as wound care nurse. Pt is known to wound care. BLE dressings removed. Legs cleansed w/ soap & water. Puracyn WTD applied to all ulcers using iodoform or gauze. Secured in place w/ roll gauze and ramos wrap. All wound have improved andor healed since last admission 2 weeks ago. Recommendations: BLE VSU: -remove dressings. Wash w/ soap & water. -puracyn WTD to all areas with either moistened gauze or iodoform to smaller ones. -secure in place w/ roll gauze and ramos wrap from base of toes to just below knees. -continue OP f/u as scheduled. Thank you for consult. Coordinated care w/ nursing staff. Call or TT w/ any questions or concerns. Jocy Fitzpatrick LPN,[facility] Licensed Practical Nurse, Wound Care Certified, Ostomy management trainer Wound Care Resource Nurse 09/07/23 11:56 AM documented in this encounter Nursing Notes * Dora Soni RN - 09/12/2023 1:57 PM EST Pt discharged home with . Pt taken to [facility] via wheelchair. Discharge instructions reviewed and discussed with pt and pt's Satya. Pt and pt's denies questions or concerns. IV removed. Heart monitor removed. Wound change supplies given to pt along with instructions. Pt took all belongings with including clothing, dentures, and glasses. * Jocy Nur LPN - 09/12/2023 11:35 AM EST Wound care recommendations for discharge: BLE VSU: -remove dressings. Wash w/ soap & water. -puracyn soak to all open ulcerations -cover open wounds w/ adaptic, oil emulsion or equivalent and dry gauze. -secure in place w/ roll gauze and ramos wrap from base of toes to just below knees. -continue OP f/u as scheduled. Jocy Fitzpatrick LPN,[facility] Licensed Practical Nurse, Wound Care Certified, Ostomy management trainer Wound Care Resource Nurse 09/12/23 11:36 AM * Jocy Nur LPN - 09/12/2023 11:30 AM EST Pt was seen for f/u for BLE wounds. Pt is to be discharged home today. Nursing staff into complete wound care. Wounds are now superficial enough to d/c use of packing. Recommend using adaptic or oil emulsion w/ single layer of gauze and continue ramos wraps. Continue f/u OP as scheduled. Wound care recommendations for discharge: BLE VSU: -remove dressings. Wash w/ soap & water. -puracyn soak to all open ulcerations -cover open wounds w/ adaptic, oil emulsion or equivalent and dry gauze. -secure in place w/ roll gauze and ramos wrap from base of toes to just below knees. -continue OP f/u as scheduled. Call or TT w/ any questions or concerns. Jocy Fitzpatrick LPN,[facility] Licensed Practical Nurse, Wound Care Certified, Ostomy management trainer Wound Care Resource Nurse 09/12/23 11:33 AM * Dora Soni RN - 09/12/2023 8:51 AM EST Pt awake sitting on edge of bed upon entering pt's room. AOX4 and denies pain, pt c/o of pain when "pressing on" legs. Assessment completed. IV assessed, flushed, and intact. Medications administeredwithout difficulty. Dressings intact on BLE. Pt denies needs or concerns and is eating breakfast upon exiting room. Call denis use reinforced and within reach. 1145, BLE wounds cleaned with soap and water, puracyn soak to open ulcerations, oil emulsion and dry gauze placed over open ulcerations and then wrapped with kerlix and ramos bandage per wound recommendation. Pt tolerated dressing change well. IV removed. Heart monitor removed. * Jocy Nur LPN - 09/11/2023 2:12 PM EST Images from the original note were not included. Pt was seen today for wound care to BLE. Pt is AA&O. No c/o voiced. BLE soaked and dressing removed. into assist with care. BLE washed w/ soap & water. Applied Puracyn WTD to all openulcerations. Some of have healed and the ones that are remained open have 100% granular tissue in all wound beds. Measured and pictured in chart. Measurements are smaller too. Pt tolerated well. Call or TT w/ any questions or concerns. Jocy Fitzpatrick LPN,[facility] Licensed Practical Nurse, Wound Care Certified, Ostomy management trainer Wound Care Resource Nurse 09/11/23 2:14 PM * Christina Fatima RN - 09/11/2023 10:[address] Graham at bedside and discussed procedure and results with pt. Report called to 4B. * Christina Fatima RN - 09/11/2023 9:51 AM EST Pt received in recovery S/P EGD. Pt awake and resting on left side. Pt denies pain. Abd soft Reportreceived from Osei Navarrete RN. VSS. Airway patent. * Giselle Navarrete RN - 09/11/2023 9:47 AM EST EGD completed. Sedated by HEARING AID REPAIRER. See anesthesia record for VS and medications given. Pt tolerated procedure well with minimal gagging. Abd soft. Airway patent. Pt to recovery on L side with HOB elevated. Report to recovery room nurse. Bedside cleaning done. Specimen(s) and location(s) verified with physician post procedure 9:47 AM Giselle Navarrete RN * Dora Soni RN - 09/11/2023 9:30 AM EST 0845, Pt laying in bed awake with present at bedside upon entering pt's room. Pt AOX4 and denies pain at this time. Pt c/o of mild tenderness "all over" abdomen upon palpation. Pt's abdomen soft, distended, present bowel sounds. Assessment completed. IV site assessed, flushed, and intact. Pt denies questions regarding EGD and remains NPO for procedure. Call denis within reach. 0915, Pt transferred to endo via stretcher. 1015, Pt returned to inpatient room via stretcher after EGD. Pt awake, vitals obtained, heart monitor reapplied. Pt c/o of sore throat and requesting hot tea. Dr. Hampton made aware of pt back to inpatient room and diet order placed. * Amarilis Montes De Oca LPN - 09/11/2023 9:26 AM EST Pt. Resting quietly,no complaints of voiced at present.Dr Graham made awrare to see. * Dede Richter RN - 09/10/2023 8:40 AM EST Pt verablizes feeling much better today. Strengths are improving. She sat straight up in bed without assistance. Overall demeanor is more awake. Less difficulty with swallowing pills this AM. * Cynthia Calles RN - 09/09/2023 10:04 PM EST 2029 Patient is AAO x 4, resting, voices no needs at this time. 2199 Patient is resting, eyes closed, vital signs obtained, is at bedside and would like ptto continue to rest and not be woken up for due meds at this time. * Neelam Felipe RN - 09/06/2023 11:48 PM EST 2029 Report received from Kristen KEENAN in ED. 2039 Pt arrived from ED via stretcher accompanied by . Transferred to bed by staff. Gown changed, tele applied. VS obtained. 2049 Pt cooperative with assessment, see flowsheets for complete details. Decreased upper and lowerstrengths. Denied pain or SOB. Respirations even and unlabored. Abd rounded, distended, and tender.Voiced no concerns at this time. VRN to complete admission with assistance from . Bed alarm on , call denis in reach. 2329 Wounds assessed, measured, and redressed. Dual Licensed Skin Assessment completed by Neelam Felipe RN and Brooklyn Randall RN. The patient is/has a N/A Skin Breakdown (includes non blanchable erythema): Yes. Wound Type: Other, location venous ulcers, 3 on R lower leg, 2 on L lower leg Wound Ostomy Nurse Notified: Yes - notified via wound care protocol Nursing interventions: dressing removed, wounds measured, cleaned with NSS, redressed * Lucille Foster RN - 09/06/2023 9:27 PM EST VIRTUAL RN [facility] [address] Name: Soco Guevara Location: [facility] [id number] Date: 09/06/2023 Time: 9:28 PM I completed the Admission Navigator. The patient was in the hospital. I was in a private office space at a [facility] location. After connecting through [employer], the patient was identified by name and date of and / or wristband checked. Patient (or authorized legal account services representative) was then in formed that this was a Virtual Nurse visit and was being conducted confidentially over secure lines. I used a headset and other methods to ensure confidentiality for the patient. My office door was closed. No one else was in the room with me. Patient acknowledged consent and understanding of privacy and security of the Virtual Nurse visit. I presented the opportunity for the patient or authorizedlegal account services representative to ask any questions regarding the visit today. The patient or authorized legal account services representative agreed to participate. documented in this encounter ED Notes * Darien Koo MD - 09/06/2023 2:22 PM EST HISTORY OF PRESENT ILLNESS Soco Guevara is a 48 year old female who presents to the ED for evaluation of Weakness, Generalized. The patient was seen at 09/06/23 1421. This patient has an ongoing problem with generalized weakness. She had admission to the hospital from August 18 through the . There were multiple complaints including generalized weakness, malnutrition, AV block, anemia, lymphedema, celiac disease, thrombocytosis Since going home she has not improved. She continues to be weak. She has now been placed on a walker and has trouble using it. She did have a ground level fall 2 days ago. She has a pain to her left shoulder as a consequence of that fall. She does not think she was knocked unconscious. She does have some neck pain. Yarsanism History of venous stasis ulcer to both legs. Malnutrition History of AV block Anemia Lymphedema Thrombocytosis Celiac disease There appears to have been a positive yeast finding on her stool pathogen report from August 21.In addition she had a negative C difficile Patient admitted to the hospital from August 18 to August 25 With generalized weakness, malnutrition Weakness, Generalized The patient's allergies, past history, and medications were reviewed. PHYSICAL EXAM Initial Vitals (see all): BP 103/74 | Pulse 90 | Resp 20 | Temp 98.2 | O2 99 %Weight 47.17 kg | Height 162.6 cm | BMI 17.85 kg/m2 Initial Pain Assessment (see all): 0 (no pain)/10 ([facility] Adult Scale 0-10) General: Alert. appropriate for age. Cachectic, ill-appearing, thin, generally weak and required assistance to get into bed Skin: Warm, dry. Head: Atraumatic. Neck: trachea midline. No distended neck veins supple Eye: Normal conjunctiva. PERRL, EOMI, Ears, nose, mouth and throat: airway patent. No inflammation Cardiovascular: Normal peripheral perfusion. Regular rate and rhythm without murmurs or extra sounds. No distended neck veins. . Respiratory: no respiratory distress. The lungs are clear to auscultation without rales wheezes or rhonchi. Breath sounds equal and present bilaterally. Gastrointestinal: Non distended. Abdomen is soft and nontender. No guarding. No rebound. No organomegaly. Musculoskeletal: No deformity. Both legs were dressed in formal dressings from the knee to the feet These were removed She has 2 open cratering sores to the back part of the lower leg 1 on either side. Also 2 smaller source of the right leg. However these do not appear to be inflamed and there is no purulence. They appeared to be healing. In addition dorsalis pedis and posterior tibialis pulses to both feet were easily identified using the venous Doppler device and there is good peripheral circulation with normalcapillary refill Neurological: No focal neurological deficit observed. alert. Cranial nerves 2-12 are intact. Supervisor Matrix strength equal. [id number] intact. Normal motor and sensory exam to arms and legs. Knee jerk reflexes equal and +2. Psychiatric: Cooperative. Differential diagnosis Weakness, dehydration, malnutrition, evaluate for injuries from recent fall Note there was a 2D transthoracic echocardiogram performed on August 21 with an ejection fraction of 55 PROCEDURES AND TREATMENTS ED Orders | ED Results MEDICAL DECISION MAKING Nursing notes and vital signs were reviewed. ED Course as of 09/06/232002Sep 06, 2023 1450 EKG reviewed by ER physician. Normal sinus rhythm. Most recent EKG August looksthe same [DR] 1531 CBC with WBC Differential(!!) Thrombocytosis present over the last 13 days. Elevated white count present over the last 13 days. Slightly trending worse [DR] 1537 XR Shoulder Left 2+ Views No evidence of fracture or subluxation [DR] 1537 CT C Spine without contrast No acute finding [DR] 1537 CT Head/Brain without contrast No acute intracranial abnormality [DR] 1538 XR Abd obstruct series with chest 1 view Nonobstructive bowel gas pattern. [DR] 1705 US Abdomen Limited 1. Nonspecific diffuse borderline gallbladder wall thickening measuring 3-4 mm, may be due to incomplete distension. 2. Small gallbladder polyps measuring up to 4 mm [DR] [address] Hernandez who will kindly evaluate in the emergency room [DR] ED Course User Index [DR] Darien Koo MD Amount and/or Complexity of Data Reviewed Labs: ordered. Decision-making details documented in ED Course. Radiology: ordered. Decision-making details documented in ED Course. ECG/medicine tests: ordered. Risk Prescription drug management. Clinical Impressions Generalized weakness Leukocytosis, unspecified type Thrombocytosis Enteritis Disposition Admitted. I discussed the management of this patient with the admitting provider and I made a decision to admit the patient. Admission Order Ordered Status . 09/06/232002 Admit for Inpatient Services (incl ZPO) ONCE Ordered Darien Koo * Shahana Holguin RN - 09/06/2023 2:19 PM EST Pt comes in complaining of generalized weakness. Reports she was admitted 2 weeks ago. States she has not felt any better since then. Did have a ground level fall on Monday. Did not strike her head or any LOC. No blood thinner use. Denies any chest pain, shortness of breath. Reports she does feel more lightheaded today than normal. documented in this encounter Miscellaneous Notes * Ancillary Progress Note - Macrina Jeffery Jeweler Apprentice - 09/12/2023 1:57 PM EST CARE MANAGEMENT - ADULT DISCHARGE NOTE [facility] [address] Name: Soco Guevara Location: [place] [id number]/ Date: 09/12/2023 Time: 4:44 PM The following coordination of care and discharge plan has been coordinated with the care team, patient, family and/or caregiver according to the patients needs and preferences. Discharge Final Discharge Plan (Complete only at time of Discharge): Home - Self Care (09/12/23 1643) Narrative: Pt was discharged home with self care. Pt declined CM needs. Pt was transported via personalized living manager and family. * Pt Handout (on AVS) - Jennifer Su RN - 09/12/2023 10:40 AM EST Images from the original note were not included. [id number] Folic Acid Oral Tablet Brands: Folacin Uses This medicine is used for the following purposes: vitamin deficiency Instructions This medicine may be taken with or without food. Keep the medicine at room temperature. Avoid heat and direct light. It is important that you keep taking each dose of this medicine on time even if you are feeling well. If you forget to take a dose on time, take it as soon as you remember. If it is almost time for thenext dose, do not take the missed dose. Return to your normal schedule. Do not take 2 doses at one time. Tell your doctor and pharmacist about all your medicines. Include prescription and [id number], vitamins, and herbal medicines. Speak with your doctor or pharmacist before starting any other vitamins. Cautions Do not start or stop any other medicines without first speaking to your doctor or pharmacist. Do not share this medicine with anyone who has not been prescribed this medicine. Side Effects This medicine usually has no side effects. A few people may have an allergic reaction to this medicine. Symptoms can include difficulty breathing, skin rash, itching, swelling, or severe dizziness. If you notice any of these symptoms, seek medical help quickly. Extra Please speak with your doctor, nurse, or pharmacist if you have any questions about this medicine. [email or web address] IMPORTANT NOTE: This document tells you briefly how to take your medicine, but it does not tell youall there is to know about it. Your doctor or pharmacist may give you other documents about your medicine. Please talk to them if you have any questions. Always follow their advice. There is a more complete description of this medicine available in [place] [employer]. Scan this code on your smartphone or tablet or use the web address below. You can also ask your pharmacist for a printout. If you have any questions, please ask your pharmacist. The display and use of this drug information is subject to Terms of Use. Copyright(c) 2022 [employer]. 1256-8471 [employer]. All rights reserved. This information is not intended as a substitute for professional medical care. Always follow your healthcare professional's instructions. * Care Plan - Deepali Napoles RN - 09/12/2023 6:39 AM EST Clinical Goal(s): Pt will remain free of falls this shift. (09/12/23 0000) Possible barriers to meeting goal(s)/advancing plan of care: Generalized weakness Stability of the patient: Moderately stable - low risk of patient condition declining or worsening Summary regarding today's goal(s): Met: Pt had no falls this shift. Recommendations: Continue current plan of care. * Inpatient Ask-A-Doc - Alan Lester MD - 09/11/2023 4:30 PM EST ASK-A-DOC Inpatient Note [address] [address] Name: Soco Guevara Location: [facility] 4B-4013/W Date: 09/11/2023 Time: 4:30 PM Date of Response: 09/11/2023 Assessment: Soco has had 2 recent hospitalizations for generalized weakness along with other chronic health concerns. Did have mildly elevated inflammatory markers. Has been evaluated by multiple for providers while in the hospital including Hematology. Given her weakness, inflammatory markers being elevated and a question of PMR, she was given a trial of IV steroids with some benefit. She was given IV Solu-Medrol every 8 hours at 20 mg. Recommendations: Please consider the following: I would doubt PMR is the diagnosis here given her age especially andother multiple comorbidities. PMR is really diagnosed after the age of 50. Her other significant health issues could easily explain the elevated inflammatory markers. Her SPEP/immunofixation was notsuggestive of an inflammatory process either. I would expect that if she truly have PMR the doses of steroids she got would taking all her symptoms away as PMR usually responds to 10-20 mg of prednisone and she was getting the equivalent 70-80 mg of prednisone. I would taper off the steroids as I do not feel she has PMR. Time spent: 20 minutes * Ancillary Progress Note - Darien Vera Chaplain - 09/11/2023 10:50 AM EST PROGRESS NOTE - Spiritual Care Contact Information [address] [address] Name: Soco Guevara Location: [facility] 4B-4013/W Date: 09/11/2023 Time: 1:42 PM Orthodox: Yarsanism [2] Sabianist Affiliations: REASON FOR VISIT: rounding REQUEST RECEIVED FROM: rounding VISIT LENGTH: 7 REQUEST FACTORS (Nature of Situation): Family Support and Initial Visit FOCUS OF CARE: Patient and Family member(s) SPIRITUAL ASSESSMENT: Rea or Belief System: Yarsanism Most Important Need(s) / Concern(s): Helpless and Suffering Sense of Community and/or Sabianist Affiliation: Yarsanism Addresses need(s)/concerns(s) and/or laura through: Family, Friends, God/Higher Power SPIRITUAL CARE PROVIDED: Factory Focus Technician addressed needs/concerns and/or coping through: Weed, Facilitating sharing/expression,Prayer, and Supportive dialogue REFERRAL TO: N/A OUTCOMES: Weed, Comfort/Healing Presence, Identifying Patient's Strengths/Source of Hope, Spiritually Connected, Support System Identified, Trust Self/Others/God ANNOTATION: Pt and spouse shared briefly. Pt has been in hospital multiple times. Several other family in room as well. Pt stated she was 'doing ok." They welcomed prayer. I prayed for pt and family for all their needs. * Care Plan - Neelam Moreland RN - 09/11/2023 6:05 AM EST Clinical Goal(s): Pt will not fall this shift. (09/10/231999) Possible barriers to meeting goal(s)/advancing plan of care: Weakness Stability of the patient: Moderately unstable - medium risk of patient condition declining or worsening Summary regarding today's goal(s): Met: Pt did not fall this shift. Recommendations: Continue with plan of care. * Ancillary Progress Note - Jessica Jacobs PTA - 09/09/2023 1:20 PM EST PROGRESS NOTE - Physical Therapy [address] [address] Name: Soco Guevara Location: [facility] 4B-4013/W Date: 09/09/2023 Time: 1:49 PM Soco Guevara is a/an 48 year old female. Patient Status: Inpatient Insurance: Payor: [facility] Plan: [employer] COMM[employer]ITY PLAN Product Type: *No Product type* Patient Seen: at bedside, nursing cleared patient for therapy Patient Identified By: Name, ID Band and Date Diagnosis: Gait dysfunction, generalized weakness, s/p fall (09/09/231319) Status of treatment: Treatment completed (09/09/231319) Orders: PT evaluation and treatment (09/07/231313) Weight Bearing Status: Weight bearing as tolerated;RUE;LUE;RLE;LLE (09/09/231319) Precautions: Alarms;Falls;Safety (09/09/231319) Total Treatment Time--free text: 26 minutes (09/09/231319) Subjective: "I think its harder in my head than what it really is" Pain: No complaints of pain P.T. Bed Mobility Roll (Right): Minimal Assistance (09/07/231313) Roll (Left): Minimal Assistance (09/07/231313) Sidelying-Sit: Minimal Assistance (R sidelying due to pain L shoulder) (09/07/231313) Sit-Sidelying: Minimal Assistance (R sidelying due to pain L shoulder) (09/07/231313) Supine-Sit: Contact Guard (09/09/231319) Sit-Supine: Contact Guard (09/09/231319) Transfers Sit-Stand: Minimal Assistance (09/09/231319) Stand-Sit: Minimal Assistance (09/09/231319) W/C-Bed/Mat: Minimal Assistance (09/07/231313) Ambulation: Distance ambulated (feet): 165 + 30 ft Assistive Device: Rolling walker Assist: Minimal Assistance Balance Sit (Static): Good (09/09/231319) Sit (Dynamic): Fair (09/09/231319) Stand (Static): Fair (09/09/231319) Stand (Dynamic): Poor (09/09/231319) Patient and or Family Goal(s): to get well and to return home Topic of Education: Safety with mobility, Goals/plan of care, and Use of assistive device Method of Education: Verbal discussion and explanation provided to pt: verbalized understanding andor agreement of this information Treatment Provided: Therapeutic Activities 10 minutes: bed mobility training transfer training toilet transfer training Gait Training 16 minutes: gait training with rolling walker Alarm Status Patient positioned in: Bed (09/09/231319) With: Call denis in reach ( at bedside) (09/09/231319) Patient Education Review of Precautions: Safety;Fall (09/09/231319) Safety Awareness: Patient verbalizes insight of current deficits;Patient demonstrates carryover of insight during functional tasks;Patient can communicate basic needs (09/07/231313) Preferred learning method: Combination (09/07/231313) Barriers to learning: Medical Status (09/07/231313) Method of Education: Verbalized to patient;Patient demonstrated task (09/07/231313) Assessment: patient with an AM-PAC score of 17 presents with poor endurance and decreased safety awareness. During ambulation, significant gait deviations noted including inconsistent stride length, frequent pauses in staggered stance, decreased gait speed, poor RW management, and no heel strike bilaterally. No LOB noted during gait despite deviations. Patient requires increased assist including COACH PROFESSIONAL ATHLETES with RW while turning. Patient requires cueing for hand placement during transfers. Overall, patient is unsafe to perform any mobility without assistance. Deficits requiring P.T. treatment needs: Safety;Mobility;Balance;Weakness;Endurance (09/07/231313) Equipment needs: Rolling walker (09/09/231319) Plan: Continue with current treatment plan established on evaluation. AM PAC Score with Stairs: 17 * Ancillary Progress Note - Jessica Jacobs PTA - 09/09/2023 9:49 AM EST Attempted to see patient for PT follow up session at 0949 in which patient declines to participate.Patient verbalizes fatigue from ambulating to bathroom with spouse as reason for declining to participate. Therefore, no PT services were provided at this time. Will continue to attempt to see patient at a later time/date as schedule permits. * Ancillary Progress Note - Ewa Christopher RN - 09/08/2023 2:33 PM EST CARE MANAGEMENT - ADULT INITIAL SCREENING [address] [address] Name: Soco Guevara Location: [facility] 4B-4009/D Date: 09/08/2023 Time: 2:34 PM Discussed patient with the interdisciplinary care team. This Projector Operator performed a chart review and met with patient and brother at bedside to complete admission screen and assessed needs for transition planning. The daycare teacher role and services were explained and emotional support was provided. Chief Complaint: Weakness, Generalized Prior Living Arrangements What was your living situation prior to admission/observation?: With Spouse;With Child (09/08/231430) Living Quarters: House (09/08/231430) Number of steps to enter living quarters:: 2--lives on first floor of home (09/08/231430) Do you have serious difficulty walking or climbing stairs? (5 years old or older): Yes (09/06/232058) History of falling: Yes (09/08/23835) Prior Level of Functioning Describe the patient's ability prior to admission/observation to perform ADLs: Requires assistance (09/08/231430) Requires assistance with: Bathing;Dressing (09/08/231430) Describe the patient's mobility status prior to admission: Patient requires assistance with ambulation (09/08/231430) Patient uses assistive device: Yes (09/08/231430) If yes, choose:: Walker (09/08/231430) Caregiver Information Patient Contacts Name Relation Home Work Mobile Satya Guevara Spouse [phone] Risk Stratification/Psychosocial/Care Gaps Risk Stratification Psycho Social / Medical Concerns Identified: Adjustment to illness/injury (09/08/231430) Accessed Neighborly to connect patients to social care resources: No (09/08/231430) OBRA or OPTIONS needed for placement: No (09/08/231430) Readmission Risk Score: 12.47 (09/08/23 1200) AM-PAC Score With Stairs : 16 (09/07/232023) Prior to Admission Services Services Prior to Admission HAND TUFTER Services (Services received within the last 30 days with exception, Psych within last two years): N/A (09/08/231430) [place] Dept. of Aging (PDA) Waiver Program: N/A (09/08/231430) HAND TUFTER Transportation (Services received within the last 30 days): Family/Friends Personal Vehicle (09/08/231430) Outpatient Projector Operator: No care steam train driver to display Patient/Family Expectations: Patient is a 48 year old who came to the ED due to weakness. Patient lives on the first floor of her two story home. Family friend will be able to transport her home. Patient has walker at home. Patient gets wound care by community caregivers and wound clinic. Spoke with patient about rehab and home health services- she refused both. For further screening information, please refer to the Care Management flow document. * Ancillary Progress Note - Pavel Crocker PT - 09/08/2023 2:00 PM EST Attempted PT treatment at 1400. Patient refused tx stating hunger and fatigue. Treatment will be attempted at a later time or date dependent on schedule, pt tolerance, and pt medical status. * Communication - Vincent Reyes DO - 09/08/2023 10:38 AM EST Notified by Mychal Hampton MD of the IM service that the consult was cancelled. Therefore, consultation was not completed. Vincent Reyes DO Infectious Diseases * Hospital Course - Maxime Mo DO - 09/08/2023 9:04 AM EST Patient admitted for increasing weakness over the last several weeks. Also noted to be anemic and w/ B/L LE wounds consistent w/ pyoderma gangrenosum. Initial imaging showed concerns for enteritis. Patient was previously suspected to have celiac disease although serotyping was not consistent. Patient was evaluated by GI team and recommended completion of push enteroscopy w/ biopsies for further investigation. Patient was also noted to be malnourished and was evaluated by the nutrition team and proper supplementation was added to patient's regimen. Lower extremity wounds were evaluated during admission and were noted to be improving overall and routine wound care was continued. Additionally,patient was evaluated by Heme/Onc team and was started on Folic acid w/ plans for outpatient follow-up for further work-up and management. Folic acid was decreased due to increasing platelet count. Patient endorsed improved pharyngitis symptoms on 09/10. Diet order was modified to reflect being made NPO at midnight as required for enteroscopy to be done on 09/11. EGD was completed on 09/11/23 and did not reveal any significant abnormalities, biopsy results pending on discharge. As weakness had improved above baseline and diarrhea had resolved, patient and family endorsed desire to continue work-up as an outpatient w/ incorporation of home remedies into treatment plan as well. Patient was determined to be medially stable and was discharged on 09/12/23 w/ plans for appropriate outpatient follow-up. * Ancillary Progress Note - Melany Hemphill OT - 09/07/2023 1:46 PM EST OT attempted to see pt at 1346. Pt reporting she was fatigued and family reported she had just beenrepositioned for comfort in bed prior to OT arrival. Pt politely declined OT at this time. Will attempt to see at a later date as tolerated by the pt and able to by therapy. * Medical Necessity - Rayray Tarango, Utilization Review Staff - 09/06/2023 8:04 PM EST AdmissionCare Guideline: Neurology, Inpatient Based on the indications selected for the patient, the bed status of Inpatient was determined to beMET The following indications were selected as present at the time of evaluation of the patient: - Neurologic finding requiring inpatient care, as indicated by 1 or more of the following: - Weakness that is progressive or severe (eg, inpatient care needed due to functional disability, concern for safety) Additional Information: Generalized weakness Leukocytosis, unspecified type Thrombocytosis Enteritis AdmissionCare documentation entered by: Rayray Tarango [facility], 27th edition, Copyright 2022 [facility] [employer] All Rights Reserved. [id number]:04:[id number]:00 Solely for purpose of utilization review and payment; not a diagnostic tool * ED Cyber Special Agent Note - Kristen Cheng RN - 09/06/2023 2:50 PM EST Patient comes into the ED for c/o generalized weakness. Patient reports that she's light headed, weak, bloated abdomen, and a recent fall causing shoulder pain. Patient reports diarrhea and a Hx of celiacs disease. She notes she has been following a gluten free diet and eating and drinking appropriately. Patient notes some congestion. Patients abdomens is soft, distended, non-tender. Bowel soundspresent in all quadrants. Patients lungs are clear in all campuzano. Breathing is equal and unlabored.Patient denies N/V, CP, SOB, fever or chills. Patient did fall on Monday, denies blood thinner use,LOC or hitting her head. documented in this encounter Plan of Treatment Upcoming Encounters Date Type Department Care Team (Latest Contact Info) Description 4 2:30 PM EST Telemedicine Hematology/Onco logy, [facility] [address] [facility] [place] [address] Rowdy Merchant MD [address] [place] [address] Cart, Telemed [facility] [address] [place] [address] 4 1:00 PM EST Office Visit Wound Care, [facility] [address] [facility] [place] [address] Edelmira Valles DPM [address] [place] [address] 4 11:30 AM EDT Hospital Encounter ENDO [facility], Endoscopy [address] [place] [id number] Tyler Perez MD [address] [place] [address] 4 11:30 AM EDT - 4 12:00 PM EDT Surgery [facility], Endoscopy [address] [place] [id number] Tyler Perez MD [address] [place] [address] ESOPHAGOGASTRODUODENOSCOPY (EGD), FLEXIBLE, TRANSORAL, DIAGNOSTIC Pending Results Name Type Priority Associated Diagnoses Date /Time OVA AND PARASITES, CONCENTRATE AND PERMANENT SMEAR Lab Routine 09/09/2023 6:22 AM EST SURGICAL PATHOLOGY Pathology Routine 2023 9:48 AM EST Scheduled Orders Name Type Priority Associated Diagnoses Orde r Schedule 3 POSITIONAL BLOOD PRESSURE Procedures STAT One Time for 1 Occurrences starting 09/06/2023 until 09/06/2023 EGD, FLEXIBLE, DIAGNOSTIC Procedures Routine One Time for 1 Occurrences starting 09/08/2023 until 09/08/2023 SMALL BOWEL ENDOSCOPY DIAGNOSTIC Procedures Routine One Time for 1 Occurrences starting 09/08/2023 until 09/08/2023 OVA AND PARASITES, CONCENTRATE AND PERMANENT SMEAR Lab Routine One Time for 1 Occurrences starting 09/08/2023 until 09/08/2023 SURGICAL PATHOLOGY Pathology Routine One Ti me for 1 Occurrences starting 09/11/2023 until 09/11/2023, 1 completed Scheduled Procedures Name Priority Associated Diagnoses Date/Ti me ESOPHAGOGASTRODUODENOSCOPY (EGD), FLEXIBLE, TRANSORAL, DIAGNOSTIC Dysphagia Abnormal findings on esophagogastroduodenoscopy (EGD) 11/16/2023 11:30 AM EDT Health Maintenance Due Date Last Done Comments Hepatitis B (1 of 3 - 3-dose series) 1975 COVID-19 Vaccine (#1) 1975 Depression Screening 1987 HIV Screening 1990 Hepatitis C Screening 1993 DTaP,Tdap,and Td Vaccines (1 - Tdap) 1994 Pap Smear 1996 Cervical Cancer Screening 2005 HPV/Co-Test 2005 Mammogram 2015 Cologuard 2020 Fecal Occult Blood Test 2020 Sigmoidoscopy 2020 Influenza Vaccine (FLU shot) (#1) 2023 Lipid [...] Not on filedocumented as of this encounter Procedures Procedure Name Priority Date/Time Associated Diagnosis Comments CRP (INFLAMMATORY MARKER) Routine 09/12/2023 4:40 AM EST BASIC METABOLIC PANEL Routine 09/12/2023 4:40 AM EST PHOSPHORUS Routine 09/12/2023 4:40 AM EST ERYTHROCYTE SEDIMENTATION RATE (ESR) Routine 09/12/2023 4:40 AM EST CBC Routine 09/12/2023 4:40 AM EST MAGNESIUM Routine 09/12/2023 4:40 AM EST EGD, Flexible, Diagnostic 09/11/2023 9:34 AM EST Enteritis SMALL BOWEL ENTEROSCOPY 09/11/19 9:20 AM EST BASIC METABOLIC PANEL Routine 09/11/2023 4:33 AM EST PHOSPHORUS Routine 09/11/2023 4:33 AM EST CBC Routine 09/11/2023 4:33 AM EST MAGNESIUM Routine 09/11/2023 4:33 AM EST BASIC METABOLIC PANEL Routine 09/10/2023 5:16 AM EST PHOSPHORUS Routine 09/10/2023 5:16 AM EST CBC Routine 09/10/2023 5:16 AM EST MAGNESIUM Routine 09/10/2023 5:16 AM EST GASTROINTESTINAL PATHOGEN PANEL, STOOL Routine 09/09/2023 6:22 AM EST GASTROINTESTINAL PATHOGEN PANEL CULTURE Routine 09/09/2023 6:22 AM EST GASTROINTESTINAL PATHOGEN PANEL PCR Routine 09/09/2023 6:22 AM EST CLOSTRIDIUM DIFFICILE, PCR Routine 09/09/2023 6:22 AM EST BASIC METABOLIC PANEL Routine 09/09/2023 6:18 AM EST PHOSPHORUS Routine 09/09/2023 6:18 AM EST CBC Routine 09/09/2023 6:18 AM EST MAGNESIUM Routine 09/09/2023 6:18 AM EST GROUP A STREP PCR STAT 09/08/2023 2:3 9 PM EST GROUP A STREP RAPID THROAT STAT 09/08/2023 2:39 PM EST HCG QUALITATIVE, URINE Routine 10:03 AM EST BASIC METABOLIC PANEL Routine 09/08/2023 5:24 AM EST PHOSPHORUS Routine 09/08/2023 5:24 AM EST GGTP Add-on 09/08/2023 5:24 AM EST ERYTHROCYTE SEDIMENTATION RATE (ESR) Add-on 09/08/2023 5:24 AM EST CBC Routine 09/08/2023 5:24 AM EST PREALBUMIN Add-on 09/08/2023 5:24 AM EST MAGNESIUM Routine 09/08/2023 5:24 AM EST HC ECG TRACING ONLY Routine 09/07/2023 1 2:47 PM EST Electrolyte abnormality BASIC METABOLIC PANEL Routine 09/07/2023 4:33 AM EST IRON SCREEN, INCLUDING TIBC Add-on 09/07/2023 4:33 AM EST PHOSPHORUS Routine 09/07/2023 4:33 AM EST MAGNESIUM Routine 09/07/2023 4:33 AM EST FERRITIN Add-on 09/07/2023 4:33 AM EST CBC Routine 09/07/2023 4:32 AM EST URINALYSIS, REFLEX TO CULTURE STAT 09/06/2023 7:44 PM EST URINALYSIS, REFLEX TO CULTURE (CUP ONLY) STAT 09/06/2023 7:44 PM EST URINALYSIS, REFLEX TO CULTURE (NOT FOR NEUTROPENIC PATIENTS) STAT 09/06/2023 7:44 PM EST CULTURE, URINE, QUANTITATIVE STAT 09/06/2023 7:[address] ABD/PELVIS W IV CONTRAST - WO ORAL CONTRAST STAT 09/06/2023 6:20 PM EST US ABDOMEN LIMITED STAT 09/06/2023 4: 40 PM EST XR ABDOMEN OBSTRUCT SERIES W CHEST 1 VIEW STAT 09/06/2023 3:24 PM EST XR SHOULDER, 2 OR MORE VIEWS STAT 09/06/2023 3:[address] C SPINE WO CONTRAST STAT 3:[address] HEAD/BRAIN WO CONTRAST STAT 09/06/2023 3:09 PM EST RESPIRATORY PATHOGEN PANEL, PCR STAT 09/06/2023 2:55 PM EST LYME DISEASE ANTIBODY SCREEN STAT 09/06/2023 2:41 PM EST LYME DISEASE ANTIBODY SCREEN WITH REFLEX TO CONFIRMATION STAT 09/06/2023 2:41 PM EST MONONUCLEOSIS HETEROPHILE ANTIBODY STAT 09/06/2023 2:41 PM EST CULTURE, BLOOD Routine 09/06/2023 2:41 PM EST HC ECG TRACING ONLY STAT 09/06/2023 2 :36 PM EST Generalized weakness LACTATE WITH REFLEX IF ABNORMAL STAT 09/06/2023 2:36 PM EST DIFFERENTIAL, AUTOMATED STAT 09/06/19 2:36 PM EST TROPONIN T, HIGH SENSITIVITY STAT 09/06/2023 2:36 PM EST BLOOD GAS, VENOUS STAT 09/06/2023 2:3 6 PM EST CRP (INFLAMMATORY MARKER) Add-on 09/06/2023 2:36 PM EST HEPATIC FUNCTION PANEL STAT 2:36 PM EST BASIC METABOLIC PANEL Add-on 09/06/2023 2:36 PM EST CK Add-on 09/06/2023 2:36 PM EST CBC STAT 09/06/2023 2:36 PM EST PT INR STAT 09/06/2023 2:36 PM EST PHOSPHORUS Add-on 09/06/2023 2:36 PM EST CULTURE, BLOOD Routine 09/06/2023 2:36 PM EST CBC STAT 09/06/2023 2:36 PM EST DIFFERENTIAL, TECHNOLOGIST REVIEW Routine 09/06/2023 2:36 PM EST MAGNESIUM Add-on 09/06/2023 2:36 PM EST documented in this encounter Results * PHOSPHORUS (09/12/2023 4:40 AM EST) [facility] Phosphorus 3.8 2.5 - 4.8 mg/dL 09/12/2023 5:55 AM EST LABORATORY [facility] Blood Venous blood specimen / Unknown Venipuncture / Unknown 09/12/2023 4:40 AM EST 09/12/2023 5:25 AM EST Michaelle Hunter PA-C LAB BLOOD ORDER [facility] [address] [address] * (ABNORMAL) MAGNESIUM (09/12/2023 4:40 AM EST) Magnesium 2.7(H) 1.5 - 2.6 mg/dL 09/12/2023 5:55 AM EST LABORATORY [facility] Blood Venous blood specimen / Unknown Venipuncture / Unknown 09/12/2023 4:40 AM EST 09/12/2023 5:25 AM EST Michaelle Hunter PA-C LAB BLOOD ORDER [facility] Performing Organization Address [facility]/ZIP Co de Phone Number LABORATORY [address] [address] * (ABNORMAL) CBC (09/12/2023 4:40 AM EST) WBC 27.47(H) 4.00 - 10.80 K/uL 09/12/2023 5:46 AM EST LABORATORY [facility] RBC 4.69 3.85 - 5.15 M/uL 09/12/2023 5:46 AM EST LABORATORY [facility] HGB 13.4 12.0 - 15.3 g/dL 09/12/2023 5:46 AM EST LABORATORY [facility] HCT 41.1 36.0 - 45.2 % 09/12/2023 5:46 AM EST LABORATORY [facility] MCV 87.6 81.5 - 97.5 fL 09/12/2023 5:46 AM EST LABORATORY [facility] MCH 28.6 27.0 - 34.0 pg 09/12/2023 5:46 AM EST LABORATORY [facility] MCHC 32.6 32.0 - 36.0 g/dL 09/12/2023 5:46 AM EST LABORATORY [facility] RDW 16.8 11.5 - 15.5 % 09/12/2023 5:46 AM EST LABORATORY [facility] PLT 1,057(HH) 140 - 400 K/uL 09/12/2023 5:46 AM EST [facility] MPV 9.8 6.6 - 11.1 fL 09/12/2023 5:46 AM EST [facility] nRBCs 0 <=0 /100 WBCs 09/12/2023 5:46 AM EST [facility] Blood Venous blood specimen / Unknown Venipuncture / Unknown 09/12/2023 4:40 AM EST 09/12/2023 5:26 AM EST Michaelle Hunter PA-C LAB BLOOD ORDER [facility] [address] [place] [address] * (ABNORMAL) BASIC METABOLIC PANEL (09/12/2023 4:40 AM EST) BUN 14 6 - 20 mg/dL 09/12/2023 5:55 AM EST [facility] Creatinine 0.4(L) 0.5 - 1.0 mg/dL 09/12/2023 5:55 AM EST [facility] Estimated Glomerular Filtration Rate >90 >=60 mL/min 09/12/2023 5:55 AM EST LABORATORY [facility] Comment:eGFR is calculated b ased on the CKD-EPI 2020 equation Sodium 137 135 - 146 mmol/L 09/12/2023 5:55 AM EST [facility] Potassium 4.3 3.5 - 5.1 mmol/L 09/12/2023 5:55 AM EST [facility] Chloride 99 98 - 107 mmol/L 09/12/2023 5:55 AM EST [facility] CO2 24 22 - 32 mmol/L 09/12/2023 5:55 AM EST [facility] Anion Gap 14 7 - 15 mmol/L 09/12/2023 5:55 AM EST [facility] Glucose 162(H) 70 - 120 mg/dL 09/12/2023 5:55 AM EST [facility] Calcium 9.3 8.4 - 10.2 mg/dL 09/12/2023 5:55 AM EST [facility] Blood Venous blood specimen / Unknown Venipuncture / Unknown 09/12/2023 4:40 AM EST 09/12/2023 5:25 AM EST Michaelle Hunter PA-C LAB BLOOD ORDER BONNIE Performing Organization Address [facility] de Phone Number LABORATORY [facility] [address] [place] [address] * (ABNORMAL) ERYTHROCYTE SEDIMENTATION RATE (ESR) (09/12/2023 4:40 AM EST) ESR 31(H) <20 mm/hour 09/12/2023 6:09 PM EST LABORATORY [facility] Blood Venous blood specimen / Unknown Venipuncture / Unknown 09/12/2023 4:40 AM EST 09/12/2023 5:25 AM EST Maxime Kaur Chely WYNNE LAB BLOOD ORDERA BLES Performing Organization Address [facility] Co de Phone Number LABORATORY [facility] [address] [place] [address] * CRP (INFLAMMATORY MARKER) (09/12/2023 4:40 AM EST) CRP (Inflammatory Marker) 4 <=5 mg/L 09/12/2023 5:55 AM EST LABORATORY [facility] Blood Venous blood specimen / Unknown Venipuncture / Unknown 09/12/2023 4:40 AM EST 09/12/2023 5:25 AM EST Maxime Kaur Chely LAB BLOOD ORDERA BLES Performing Organization Address City/[facility] de Phone Number LABORATORY [address] [address] * SMALL BOWEL ENTEROSCOPY (09/11/2023 9:20 AM EST) 09/11/2023 9:20 AM EST Narrative Procedure Note Mychal Hampton MD - 09/11/2023 9:20 AM EST [facility] Patient Name: Soco Guevara Procedure Date: 09/11/2023 9:20 AM Date of : 1975 Admit Type: Outpatient Note Status:Finalized Date of : 1975 Admit Type: Outpatient Age: 48 Room: Endo 1 Gender: Female Note Status: Finalized Procedure: Small bowel enteroscopy Indications: Anorexia Providers: Teri Graham MD Referring MD: Mychal Hampton MD Medicines: See the Anesthesia note for documentation of theadministered medications Complications: No immediate complications. Procedure: Pre-Anesthesia Assessment: - Patient identification and proposed procedurewere verified prior to the procedure by the physician, the nurse and theanesthesiologist. The procedure was verified in the pre-procedure area. - Prior to the procedure, a History and Physicalwas performed, and patient medications, allergies and sensitivities werereviewed. The patient's tolerance of previous anesthesia was reviewed. - The risks and benefits of the procedure and thesedation options and risks were discussed with the patient. All questions wereanswered and informed consent was obtained. - The medication list for this patient has beenreviewed prior to the procedure and has been determined that the patient may proceed with the plannedstudy. Any medication changes made as a result of the findings of this procedure have beendiscussed with the patient and/or account services representative at the time of discharge from theregency hospital. - After obtaining informed consent, the endoscopewas passed under direct vision. All instruments were visually inspected immediatelybefore and after removal from the patient to ensure they are fully intact. Throughout the procedure, the patient's bloodpressure, pulse, and oxygen saturations were monitored continuously. The [id number] ([id number]) was introduced through the mouth and advanced to the proximaljejunum. The small bowel enteroscopy was accomplished without difficulty. The patienttolerated the procedure well. Findings & Specimens: The examined esophagus appeared normal. The examined stomach appeared normal. Biopsies were taken with a coldforceps for histology. The pathology specimen was placed into Bottle C. There was no evidence of significant pathology in the duodenal bulband in the second portion of the duodenum. The duodenum did not appear to have a scalloped appearance.Biopsies for histology were taken with a cold forceps for evaluation of celiac disease. The pathologyspecimen was placed into Bottle B. There was no evidence of significant pathology in the proximaljejunum. Biopsies were taken with a cold forceps for histology. The pathology specimen was placed into BottleA. Verification of patient identification for the specimen was done by the physician and nurseusing the patient's name and medical record number. Impression: - Normal esophagus. - Normal stomach. Biopsied. - Normal duodenal bulb and second portion of theduodenum. Biopsied. - The examined portion of the jejunum appearednormal. Biopsied. Recommendation: - Await pathology results. - Return to the floor. - The patient has been eating a gluten free dietsince her initial biopsies diagnostic of celiac in 01/27. Teri Graham MD 09/11/2023 9:49:17 AM This report has been signed electronically. Estimated Blood Loss: Estimated blood loss was minimal. Mychal Hampton MD GASTRO UPPER * PHOSPHORUS (09/11/2023 4:33 AM EST) Phosphorus 3.8 2.5 - 4.8 mg/dL 09/11/2023 5:16 AM EST LABORATORY GL Blood Venous blood specimen / Unknown Venipuncture / Unknown 09/11/2023 4:33 AM EST 09/11/2023 4:53 AM EST Michaelle Hunter PA-C LAB BLOOD ORDER BONNIE LABORATORY [address] [id number] * MAGNESIUM (09/11/2023 4:33 AM EST) Magnesium 2.5 1.5 - 2.6 mg/dL 09/11/2023 5:16 AM EST LABORATORY GL Blood Venous blood specimen / Unknown Venipuncture / Unknown 09/11/2023 4:33 AM EST 09/11/2023 4:53 AM EST Michaelle Hunter PA-C LAB BLOOD ORDER BONNIE Performing Organization Address City/[facility]/ZIP Co de Phone Number LABORATORY [address] [address] * (ABNORMAL) CBC (09/11/2023 4:33 AM EST) WBC 25.97(H) 4.00 - 10.80 K/uL 09/11/2023 5:19 AM EST LABORATORY [facility] RBC 4.73 3.85 - 5.15 M/uL 09/11/2023 5:19 AM EST LABORATORY [facility] HGB 13.3 12.0 - 15.3 g/dL 09/11/2023 5:19 AM EST LABORATORY [facility] HCT 41.1 36.0 - 45.2 % 09/11/2023 5:19 AM EST LABORATORY [facility] MCV 86.9 81.5 - 97.5 fL 09/11/2023 5:19 AM EST LABORATORY [facility] MCH 28.1 27.0 - 34.0 pg 09/11/2023 5:19 AM EST LABORATORY [facility] MCHC 32.4 32.0 - 36.0 g/dL 09/11/2023 5:19 AM EST LABORATORY [facility] RDW 16.6 11.5 - 15.5 % 09/11/2023 5:19 AM EST LABORATORY [facility] PLT 1,096(HH) 140 - 400 K/uL 09/11/2023 5:19 AM EST LABORATORY [facility] MPV 9.3 6.6 - 11.1 fL 09/11/2023 5:19 AM EST LABORATORY [facility] nRBCs 0 <=0 /100 WBCs 09/11/2023 5:19 AM EST LABORATORY [facility] Blood Venous blood specimen / Unknown Venipuncture / Unknown 09/11/2023 4:33 AM EST 09/11/2023 4:53 AM EST Michaelle Hunter PA-C LAB BLOOD ORDER BONNIE LABORATORY [address] [address] * (ABNORMAL) BASIC METABOLIC PANEL (09/11/2023 4:33 AM EST) BUN 11 6 - 20 mg/dL 09/11/2023 5:16 AM EST LABORATORY GL Creatinine 0.4(L) 0.5 - 1.0 mg/dL 09/11/2023 5:16 AM EST LAB[facility]ORY [facility] Estimated Glomerular Filtration Rate >90 >=60 mL/min 09/11/2023 5:16 AM EST [facility] Comment:eGFR is calculated b ased on the CKD-EPI 2020 equation Sodium 138 135 - 146 mmol/L 09/11/2023 5:16 AM EST [facility] Potassium 4.4 3.5 - 5.1 mmol/L 09/11/2023 5:16 AM EST [facility] Chloride 101 98 - 107 mmol/L 09/11/2023 5:16 AM EST [facility] CO2 25 22 - 32 mmol/L 09/11/2023 5:16 AM EST [facility] Anion Gap 12 7 - 15 mmol/L 09/11/2023 5:16 AM EST [facility] Glucose 167(H) 70 - 120 mg/dL 09/11/2023 5:16 AM EST [facility] Calcium 9.3 8.4 - 10.2 mg/dL 09/11/2023 5:16 AM EST [facility] Blood Venous blood specimen / Unknown Venipuncture / Unknown 09/11/2023 4:33 AM EST 09/11/2023 4:53 AM EST Michaelle Hunter PA-C LAB BLOOD ORDER BONNIE LABORATORY [address] [address] * PHOSPHORUS (09/10/2023 5:16 AM EST) Phosphorus 3.7 2.5 - 4.8 mg/dL 09/10/2023 5:53 AM EST [facility] Blood Venous blood specimen / Unknown Venipuncture / Unknown 09/10/2023 5:16 AM EST 09/10/2023 5:23 AM EST Michaelle Hunter PA-C LAB BLOOD ORDER BONNIE LABORATORY [address] [address] * MAGNESIUM (09/10/2023 5:16 AM EST) Magnesium 2.4 1.5 - 2.6 mg/dL 09/10/2023 5:53 AM EST LABORATORY [facility] Blood Venous blood specimen / Unknown Venipuncture / Unknown 09/10/2023 5:16 AM EST 09/10/2023 5:23 AM EST Michaelle Hunter PA-C LAB BLOOD ORDER BONNIE LABORATORY [address] [address] * (ABNORMAL) CBC (09/10/2023 5:16 AM EST) WBC 31.30(H) 4.00 - 10.80 K/uL 09/10/2023 6:06 AM EST LABORATORY [facility] RBC 4.64 3.85 - 5.15 M/uL 09/10/2023 6:06 AM EST LABORATORY [facility] HGB 13.2 12.0 - 15.3 g/dL 09/10/2023 6:06 AM EST LABORATORY [facility] HCT 40.0 36.0 - 45.2 % 09/10/2023 6:06 AM EST LABORATORY [facility] MCV 86.2 81.5 - 97.5 fL 09/10/2023 6:06 AM EST LABORATORY [facility] MCH 28.4 27.0 - 34.0 pg 09/10/2023 6:06 AM EST LABORATORY [facility] MCHC 33.0 32.0 - 36.0 g/dL 09/10/2023 6:06 AM EST LABORATORY [facility] RDW 16.7 11.5 - 15.5 % 09/10/2023 6:06 AM EST LABORATORY [facility] PLT 1,110(HH) 140 - 400 K/uL 09/10/2023 6:06 AM EST LABORATORY [facility] MPV 9.0 6.6 - 11.1 fL 09/10/2023 6:06 AM EST LABORATORY [facility] nRBCs 0 <=0 /100 WBCs 09/10/2023 6:06 AM EST LABORATORY [facility] Blood Venous blood specimen / Unknown Venipuncture / Unknown 09/10/2023 5:16 AM EST 09/10/2023 5:23 AM EST Michaelle Hunter PA-C LAB BLOOD ORDER BONNIE LABORATORY [facility] [address] [place] [address] * (ABNORMAL) BASIC METABOLIC PANEL (09/10/2023 5:16 AM EST) BUN 9 6 - 20 mg/dL 09/10/2023 5:53 AM EST LAB[facility]ATORY [facility] Creatinine 0.4(L) 0.5 - 1.0 mg/dL 09/10/2023 5:53 AM EST [facility] Estimated Glomerular Filtration Rate >90 >=60 mL/min 09/10/2023 5:53 AM EST [facility] Comment:eGFR is calculated b ased on the CKD-EPI 2020 equation Sodium 141 135 - 146 mmol/L 09/10/2023 5:53 AM EST [facility] Potassium 4.2 3.5 - 5.1 mmol/L 09/10/2023 5:53 AM EST [facility] Chloride 105 98 - 107 mmol/L 09/10/2023 5:53 AM EST [facility] CO2 22 22 - 32 mmol/L 09/10/2023 5:53 AM EST [facility] Anion Gap 14 7 - 15 mmol/L 09/10/2023 5:53 AM EST [facility] Glucose 170(H) 70 - 120 mg/dL 09/10/2023 5:53 AM EST [facility] Calcium 9.5 8.4 - 10.2 mg/dL 09/10/2023 5:53 AM EST [facility] Blood Venous blood specimen / Unknown Venipuncture / Unknown 09/10/2023 5:16 AM EST 09/10/2023 5:23 AM EST Michaelle Hunter PA-C LAB BLOOD ORDER BONNIE Performing Organization Address City/[facility]/ZIP Co de Phone Number LABORATORY [address] [address] * GASTROINTESTINAL PATHOGEN PANEL CULTURE (09/09/2023 6:22 AM EST) Culture Growth No Aeromonas species or Plesiomonas species isolated. 09/11/2023 10:48 AM EST LABORATORY [facility] Stool Stool specimen / Unknown Non-blood Collection / Unknown 09/09/2023 6:22 AM EST 09/09/2023 6:27 AM EST Arlyn CASTANEDA LAB MICRO - GENERA L ORDERABLES LABORATORY [facility] [address] [place] [address] * GASTROINTESTINAL PATHOGEN PANEL PCR (09/09/2023 6:22 AM EST) Campylobacter group by PCR Negative Negative 09/09/2023 11:30 PM EST LABORATORY [facility] Salmonella species by PCR Negative Negative 09/09/2023 11:30 PM EST LABORATORY C Shigella species by PCR Negative Negative 09/09/2023 11:30 PM EST LABORATORY [facility] Vibrio group by PCR Negative Negative 09/09/2023 11:30 PM EST LABORATORY C Yersinia enterocolitica by PCR Negative Negative 09/09/2023 11:30 PM EST LABORATORY C Shiga Toxin 1 Gene by PCR Negative Negative 09/09/2023 11:30 PM EST LABORATORY C Shiga Toxin 2 Gene by PCR Negative Negative 09/09/2023 11:30 PM EST LABORATORY C Norovirus by PCR Negative Negative 09/09/19 24 11:30 PM EST LABORATORY C Rotavirus by PCR Negative Negative 09/09/19 24 11:30 PM EST LABORATORY [facility] Stool Stool specimen / Unknown Non-blood Collection / Unknown 09/09/2023 6:22 AM EST 09/09/2023 6:27 AM EST Arlyn CASTANEDA LAB MICRO - GENERA L ORDERABLES LABORATORY [facility] [address] [place] [address] * CLOSTRIDIUM DIFFICILE, PCR (09/09/2023 6:22 AM EST) Stool Consistency Semi-formed 09/09/2023 8:01 AM EST LABORATORY [facility] Clostridium difficile Result Negative. No C. difficile toxin B gene DNA detected by PCR (Amplified Probe). Negative 09/09/2023 8:01 AM EST LABORATORY [facility] Stool Stool specimen / Unknown Non-blood Collection / Unknown 09/09/2023 6:22 AM EST 09/09/2023 6:27 AM EST Arlyn CASTANEDA LAB MICRO - GENERA L ORDERABLES LABORATORY [address] [address] * PHOSPHORUS (09/09/2023 6:18 AM EST) Phosphorus 3.8 2.5 - 4.8 mg/dL 09/09/2023 6:47 AM EST LABORATORY [facility] Blood Venous blood specimen / Unknown Venipuncture / Unknown 09/09/2023 6:18 AM EST 09/09/2023 6:26 AM EST Michaelle Hunter PA-C LAB BLOOD ORDER BONNIE Performing Organization Address [facility] Co de Phone Number LABORATORY [address] [address] * MAGNESIUM (09/09/2023 6:18 AM EST) Magnesium 2.3 1.5 - 2.6 mg/dL 09/09/2023 6:47 AM EST LABORATORY [facility] Blood Venous blood specimen / Unknown Venipuncture / Unknown 09/09/2023 6:18 AM EST 09/09/2023 6:26 AM EST Michaelle BRIDGESC LAB BLOOD ORDER BONNIE Performing Organization Address City/[facility]/ZIP Co de Phone Number LABORATORY [address] [address] * (ABNORMAL) CBC (09/09/2023 6:18 AM EST) WBC 15.47(H) 4.00 - 10.80 K/uL 09/09/2023 6:37 AM EST LABORATORY [facility] RBC 5.27 3.85 - 5.15 M/uL 09/09/2023 6:37 AM EST LABORATORY [facility] HGB 14.9 12.0 - 15.3 g/dL 09/09/2023 6:37 AM EST LABORATORY [facility] HCT 46.1(H) 36.0 - 45.2 % 09/09/2023 6:37 AM EST LABORATORY [facility] MCV 87.5 81.5 - 97.5 fL 09/09/2023 6:37 AM EST LABORATORY [facility] MCH 28.3 27.0 - 34.0 pg 09/09/2023 6:37 AM EST LABORATORY [facility] MCHC 32.3 32.0 - 36.0 g/dL 09/09/2023 6:37 AM EST LABORATORY [facility] RDW 16.7 11.5 - 15.5 % 09/09/2023 6:37 AM EST LABORATORY [facility] PLT 1,158(HH) 140 - 400 K/uL 09/09/2023 6:37 AM EST LABORATORY [facility] MPV 8.8 6.6 - 11.1 fL 09/09/2023 6:37 AM EST LABORATORY [facility] nRBCs 0 <=0 /100 WBCs 09/09/2023 6:37 AM EST LABORATORY [facility] Blood Venous blood specimen / Unknown Venipuncture / Unknown 09/09/2023 6:18 AM EST 09/09/2023 6:26 AM EST Michaelle Hunter PA-C LAB BLOOD ORDER BONNIE LABORATORY [facility] [address] [place] [address] * (ABNORMAL) BASIC METABOLIC PANEL (09/09/2023 6:18 AM EST) Pathologist [facility] BUN 9 6 - 20 mg/dL 09/09/2023 6:47 AM EST LABORATORY GL Creatinine 0.4(L) 0.5 - 1.0 mg/dL 09/09/2023 6:47 AM EST LABORATORY GL Estimated Glomerular Filtration Rate >90 >=60 mL/min 09/09/2023 6:47 AM EST LAB[facility]ATORY [facility] Comment:eGFR is calculated b ased on the CKD-EPI 2020 equation Sodium 139 135 - 146 mmol/L 09/09/2023 6:47 AM EST LAB[facility]ATORY [facility] Potassium 3.9 3.5 - 5.1 mmol/L 09/09/2023 6:47 AM EST LAB[facility] Chloride 102 98 - 107 mmol/L 09/09/2023 6:47 AM EST LAB[facility]ORY [facility] CO2 25 22 - 32 mmol/L 09/09/2023 6:47 AM EST LAB[facility]ORY [facility] Anion Gap 12 7 - 15 mmol/L 09/09/2023 6:47 AM EST LAB[facility] Glucose 165(H) 70 - 120 mg/dL 09/09/2023 6:47 AM EST LAB[facility]ORY [facility] Calcium 9.8 8.4 - 10.2 mg/dL 09/09/2023 6:47 AM EST LABORATORY GL Blood Venous blood specimen / Unknown Venipuncture / Unknown 09/09/2023 6:18 AM EST 09/09/2023 6:26 AM EST Michaelle Hunter PA-C LAB BLOOD ORDER BONNIE LABORATORY [facility] [address] [place] [address] * GROUP A STREP PCR (09/08/2023 2:39 PM EST) Group A Strep PCR Result Negative. No Group A Streptococcus detected by PCR (amplified probe). Negative 09/08/2023 10:59 PM EST LABORATORY [facility] Comment:This test was develo ped and its performance characteristics determined by [employer]. It has not been cleared or approved by the FDA. The laboratory is regulated under CLIA as qualified to perform high-complexity testing. This test is used for clinical purposes. It should not be regarded as investigational or for research. Swab Throat swab / Unknown 09/08/2023 2:39 PM EST 09/08/2023 2:49 PM EST Mychal Hampton MD LAB MICRO - G ENERAL ORDERABLES LABORATORY [facility] [address], [place] [id number] * GROUP A STREP RAPID THROAT (09/08/2023 2:39 PM EST) Group A Strep Result Negative Negative 09/08/2023 3:03 PM EST LABORATORY [facility] Swab Throat swab / Unknown 09/08/2023 2:39 PM EST 09/08/2023 2:49 PM EST Mychal Hampton MD LAB MICRO - G ENERAL ORDERABLES Performing Organization Address [facility] de Phone Number LABORATORY [address] [address] * HCG QUALITATIVE, URINE (09/08/2023 10:03 AM EST) Pathologist [facility] HCG Qualitative, Urine Negative Negative 09/08/2023 10:11 AM EST LABORATORY [facility] Urine Urine specimen obtained by clean catch procedure / Unknown Non-blood Collection / Unknown 09/08/2023 10:03 AM EST 09/08/2023 10:05 AM EST Camron Zeng DO LAB URINE ORDERABLES Performing Organization Address [facility] Co de Phone Number LABORATORY [address] [address] * PREALBUMIN (09/08/2023 5:24 AM EST) Pathologist [facility] Prealbumin 18 18 - 45 mg/dL 09/09/2023 1:27 AM EST LABORATORY [facility] Blood Venous blood specimen / Unknown Venipuncture / Unknown 09/08/2023 5:24 AM EST 09/08/2023 6:21 AM EST Mychal Hampton MD LAB BLOOD ORD ERABLES Performing Organization Address City/[facility]/ZIP Co de Phone Number LABORATORY [facility] [address] [place] [address] * (ABNORMAL) GGTP (09/08/2023 5:24 AM EST) GGTP 43(H) <=40 U/L 09/09/2023 1:2 7 AM EST LABORATORY [facility] Blood Venous blood specimen / Unknown Venipuncture / Unknown 09/08/2023 5:24 AM EST 09/08/2023 6:21 AM EST Mychal Hampton MD LAB BLOOD ORD ERABLES LABORATORY [facility] [address] [place] [address] * (ABNORMAL) ERYTHROCYTE SEDIMENTATION RATE (ESR) (09/08/2023 5:24 AM EST) ESR 52(H) <20 mm/hour 09/08/2023 11:49 PM EST LABORATORY [facility] Blood Venous blood specimen / Unknown Venipuncture / Unknown 09/08/2023 5:24 AM EST 09/08/2023 6:21 AM EST Mychal Hampton MD LAB BLOOD ORD ERABLES LABORATORY [facility] [address] [place] [address] * PHOSPHORUS (09/08/2023 5:24 AM EST) Phosphorus 3.8 2.5 - 4.8 mg/dL 09/08/2023 6:44 AM EST LABORATORY [facility] Blood Venous blood specimen / Unknown Venipuncture / Unknown 09/08/2023 5:24 AM EST 09/08/2023 6:21 AM EST Michaelle Hunter PA-C LAB BLOOD ORDER BONNIE LABORATORY [address] [address] * MAGNESIUM (09/08/2023 5:24 AM EST) Pathologist [facility] Magnesium 2.3 1.5 - 2.6 mg/dL 09/08/2023 6:44 AM EST LABORATORY [facility] Blood Venous blood specimen / Unknown Venipuncture / Unknown 09/08/2023 5:24 AM EST 09/08/2023 6:21 AM EST Michaelle Hunter PA-C LAB BLOOD ORDER BONNIE LABORATORY [address] [address] * (ABNORMAL) CBC (09/08/2023 5:24 AM EST) WBC 18.17(H) 4.00 - 10.80 K/uL 09/08/2023 6:28 AM EST LABORATORY [facility] RBC 4.47 3.85 - 5.15 M/uL 09/08/2023 6:28 AM EST LABORATORY [facility] HGB 12.0 12.0 - 15.3 g/dL 09/08/2023 6:28 AM EST LABORATORY [facility] HCT 38.8 36.0 - 45.2 % 09/08/2023 6:28 AM EST LABORATORY [facility] MCV 86.8 81.5 - 97.5 fL 09/08/2023 6:28 AM EST LABORATORY [facility] MCH 26.8 27.0 - 34.0 pg 09/08/2023 6:28 AM EST LABORATORY [facility] MCHC 30.9 32.0 - 36.0 g/dL 09/08/2023 6:28 AM EST LABORATORY [facility] RDW 16.5 11.5 - 15.5 % 09/08/2023 6:28 AM EST LABORATORY [facility] PLT 978(H) 140 - 400 K/uL 09/08/2023 6:28 AM EST LABORATORY [facility] MPV 9.3 6.6 - 11.1 fL 09/08/2023 6:28 AM EST LABORATORY GL nRBCs 0 <=0 /100 WBCs 09/08/2023 6:28 AM EST LABORATORY [facility] Blood Venous blood specimen / Unknown Venipuncture / Unknown 09/08/2023 5:24 AM EST 09/08/2023 6:21 AM EST Michaelle Hunter PA-C LAB BLOOD ORDER BONNIE LABORATORY [facility] [address] [place] [address] * (ABNORMAL) BASIC METABOLIC PANEL (09/08/2023 5:24 AM EST) BUN 5(L) 6 - 20 mg/dL 09/08/2023 6:44 AM EST LABORATORY [facility] Creatinine 0.4(L) 0.5 - 1.0 mg/dL 09/08/2023 6:44 AM EST LABORATORY [facility] Estimated Glomerular Filtration Rate >90 >=60 mL/min 09/08/2023 6:44 AM EST LAB[facility]ATORY [facility] Comment:eGFR is calculated b ased on the CKD-EPI 2020 equation Sodium 138 135 - 146 mmol/L 09/08/2023 6:44 AM EST LAB[facility]ATORY [facility] Potassium 4.1 3.5 - 5.1 mmol/L 09/08/2023 6:44 AM EST LAB[facility]ATORY [facility] Chloride 104 98 - 107 mmol/L 09/08/2023 6:44 AM EST LAB[facility]ATORY [facility] CO2 24 22 - 32 mmol/L 09/08/2023 6:44 AM EST LAB[facility]ATORY [facility] Anion Gap 10 7 - 15 mmol/L 09/08/2023 6:44 AM EST LAB[facility]ATORY [facility] Glucose 92 70 - 120 mg/dL 09/08/2023 6:44 AM EST LAB[facility]ATORY [facility] Calcium 8.7 8.4 - 10.2 mg/dL 09/08/2023 6:44 AM EST LAB[facility] Blood Venous blood specimen / Unknown Venipuncture / Unknown 09/08/2023 5:24 AM EST 09/08/2023 6:21 AM EST Michaelle Hunter PA-C LAB BLOOD ORDER BONNIE LABORATORY [facility] [address] [place] [address] * EKG (09/07/2023 12:47 PM EST) 09/07/2023 12:4 7 PM EST Narrative Procedure Note Paige Groves, DO - 09/07/2023 12:47 PM EST REASON FOR STUDY: Previously noted incomplete heart block;Lidia CONCLUSIONS: Normal sinus rhythm Normal ECG When compared with ECG of 06-SEP-2023 14:36, Nonspecific T wave abnormality now evident in Anterior leads Ventricular Rate: 75 Atrial Rate: 75 MS Interval: 156 QRS Duration: 70 QT/QTc: 394/439 ms P-R-T Sharon: 72 : 62 : 67 degrees Maxime Mo DO EKG [facility] * FERRITIN (09/07/2023 4:33 AM EST) [facility] Ferritin 47 13 - 150 ng/mL 09/07/2023 3:16 PM EST LABORATORY [facility] Comment:Postmenopausal women have higher ferritin levels than pre-menopausal women. The above reference interval is based on pre-menopausal women. Blood Venous blood specimen / Unknown Venipuncture / Unknown 09/07/2023 4:33 AM EST 09/07/2023 5:01 AM EST Mj Anthony MD LAB BLOOD ORD ERABLES LABORATORY [facility] [address] [place] [address] * (ABNORMAL) IRON SCREEN, INCLUDING TIBC (09/07/2023 4:33 AM EST) Iron 18(L) 33 - 151 ug/dL 09/07/2023 2:42 PM EST LABORATORY [facility] Iron Binding Capacity 248(L) 250 - 425 ug/dL 09/07/2023 2:42 PM EST LABORATORY [facility] Transferrin Saturation Percent 7(L) 15 - 55 % 09/07/2023 2:42 PM EST LABORATORY [facility] Blood Venous blood specimen / Unknown Venipuncture / Unknown 09/07/2023 4:33 AM EST 09/07/2023 5:01 AM EST Mj Anthony MD LAB BLOOD ORD ERABLES LABORATORY [facility] [place] [facility] [address] [place] [address] * PHOSPHORUS (09/07/2023 4:33 AM EST) Phosphorus 3.5 2.5 - 4.8 mg/dL 09/07/2023 5:42 AM EST LABORATORY [facility] Blood Venous blood specimen / Unknown Venipuncture / Unknown 09/07/2023 4:33 AM EST 09/07/2023 5:01 AM EST Michaelle Hunter PA-C LAB BLOOD ORDER BONNIE Performing Organization Address City/[facility]/ZIP Co de Phone Number LABORATORY [facility] [address] [place] [address] * MAGNESIUM (09/07/2023 4:33 AM EST) Magnesium 2.1 1.5 - 2.6 mg/dL 09/07/2023 5:42 AM EST LABORATORY [facility] Blood Venous blood specimen / Unknown Venipuncture / Unknown 09/07/2023 4:33 AM EST 09/07/2023 5:01 AM EST Michaelle Hunter PA-C LAB BLOOD ORDER BONNIE Performing Organization Address [facility]/ZIP Co de Phone Number LABORATORY [address] [address] * (ABNORMAL) BASIC METABOLIC PANEL (09/07/2023 4:33 AM EST) BUN 5(L) 6 - 20 mg/dL 09/07/2023 5:42 AM EST LABORATORY [facility] Creatinine 0.3(L) 0.5 - 1.0 mg/dL 09/07/2023 5:42 AM EST LABORATORY [facility] Estimated Glomerular Filtration Rate >90 >=60 mL/min 09/07/2023 5:42 AM EST LABORATORY [facility] Comment:eGFR is calculated b ased on the CKD-EPI 2020 equation Sodium 139 135 - 146 mmol/L 09/07/2023 5:42 AM EST LABORATORY GL Potassium 3.6 3.5 - 5.1 mmol/L 09/07/2023 5:42 AM EST LABORATORY [facility] Chloride 106 98 - 107 mmol/L 09/07/2023 5:42 AM EST LABORATORY [facility] CO2 21(L) 22 - 32 mmol/L 09/07/2023 5:42 AM EST LABORATORY [facility] Anion Gap 12 7 - 15 mmol/L 09/07/2023 5:42 AM EST LABORATORY [facility] Glucose 100 70 - 120 mg/dL 09/07/2023 5:42 AM EST LABORATORY [facility] Calcium 8.4 8.4 - 10.2 mg/dL 09/07/2023 5:42 AM EST LABORATORY GL Blood Venous blood specimen / Unknown Venipuncture / Unknown 09/07/2023 4:33 AM EST 09/07/2023 5:01 AM EST Michaelle Hunter PA-C LAB BLOOD ORDER BONNIE LABORATORY [address] [address] * (ABNORMAL) CBC (09/07/2023 4:32 AM EST) WBC 15.44(H) 4.00 - 10.80 K/uL 09/07/2023 5:06 AM EST LABORATORY GL RBC 4.23 3.85 - 5.15 M/uL 09/07/2023 5:06 AM EST LABORATORY GL HGB 11.9(L) 12.0 - 15.3 g/dL 09/07/2023 5:06 AM EST LABORATORY GL HCT 36.4 36.0 - 45.2 % 09/07/2023 5:06 AM EST LABORATORY GL MCV 86.1 81.5 - 97.5 fL 09/07/2023 5:06 AM EST LABORATORY GL MCH 28.1 27.0 - 34.0 pg 09/07/2023 5:06 AM EST LABORATORY GL MCHC 32.7 32.0 - 36.0 g/dL 09/07/2023 5:06 AM EST LABORATORY GL RDW 16.5 11.5 - 15.5 % 09/07/2023 5:06 AM EST LABORATORY [facility] PLT 924(H) 140 - 400 K/uL 09/07/2023 5:06 AM EST LABORATORY [facility] MPV 8.9 6.6 - 11.1 fL 09/07/2023 5:06 AM EST LABORATORY [facility] nRBCs 0 <=0 /100 WBCs 09/07/2023 5:06 AM EST LABORATORY [facility] Blood Venous blood specimen / Unknown Venipuncture / Unknown 09/07/2023 4:32 AM EST 09/07/2023 5:01 AM EST Michaelle Hunter PA-C LAB BLOOD ORDER [facility]ONN[facility] LABORATORY [address] [address] * CULTURE, URINE, QUANTITATIVE (09/06/2023 7:44 PM EST) Culture Growth No significant growth 09/08/2023 7:30 AM EST LABORATORY [facility] Urine Urine specimen obtained by clean catch procedure / Unknown 09/06/2023 7:44 PM EST 09/06/2023 7:56 PM EST Darien Koo MD LAB MICRO - GENERAL ORDERABLES LABORATORY [address] [address] * (ABNORMAL) URINALYSIS, REFLEX TO CULTURE (09/06/2023 7:44 PM EST) Color, Urine Yellow Light Yellow, Yellow, Dark Yellow 09/06/2023 8:42 PM EST LABORATORY GL Clarity, Urine Clear Clear 09/06/2023 8:42 PM EST LABORATORY GL Glucose, Urine Negative Negative mg/dL 09/06/2023 8:42 PM EST LABORATORY GL Bilirubin, Urine Negative Negative 09/06/2023 8:42 PM EST LABORATORY GL Ketone, Urine Negative Negative mg/dL 09/06/2023 8:42 PM EST LABORATORY GL Specific Colbert, Urine 1.025 1.003 - 1.030 09/06/2023 8:42 PM EST LABORATORY GL Blood, Urine Negative Negative 09/06/2023 8:42 PM EST LABORATORY [facility] pH, Urine 6.5 5.0 - 7.5 Units 09/06/2023 8:42 PM EST LABORATORY GL Protein, Urine Negative Negative mg/dL 09/06/2023 8:42 PM EST LABORATORY [facility] Urobilinogen, Urine 0.2 0.2, 1.0 mg/dL 09/06/2023 8:42 PM EST LABORATORY [facility] Nitrite, Urine Negative Negative 09/06/2023 8:42 PM EST LABORATORY [facility] Esterase, Urine Trace(A) Negative 09/06/2023 8:42 PM EST LABORATORY [facility] RBC, Urine 0-2 0 - 2 /HPF 09/06/2023 8:42 PM EST LABORATORY [facility] WBC, Urine 3-5(A) 0 - 2 /HPF 09/06/2023 8:42 PM EST LABORATORY [facility] Bacteria, Urine 26-50(A) 0 - 25 /HPF 09/06/2023 8:42 PM EST LABORATORY [facility] Culture, Urine 09/06/2023 8:42 PM EST LABORATORY [facility] Comment:Quantitative urine c ulture to be performed Urine Urine specimen obtained by clean catch procedure / Unknown 09/06/2023 7:44 PM EST 09/06/2023 7:56 PM EST Darien Koo MD LAB URINE ORDERABLES Performing Organization Address City/State/[facility] Co de Phone Number LABORATORY [address] [address] * URINALYSIS, REFLEX TO CULTURE (CUP ONLY) (09/06/2023 7:44 PM EST) Urinalysis, Reflex to Culture Specimen Specimen collected and received 09/06/2023 8:43 PM EST LABORATORY [facility] Urine Urine specimen obtained by clean catch procedure / Unknown 09/06/2023 7:44 PM EST 09/06/2023 7:56 PM EST Darien Koo MD LAB URINE ORDERABLES LABORATORY [address] [address] * CT ABD/PELVIS W IV CONTRAST - WO ORAL CONTRAST (09/06/2023 6:20 PM EST) Anatomical Region Laterality Modality Body, Abdomen, Pelvis Computed T omography 09/06/2023 6:05 PM EST Impressions 09/06/2023 6:48 PM EST IMPRESSION: Evidence of enteritis, infectious or inflammatory, with diffuse small bowel wall thickening. The small bowel is moderately distended with fluid. THIS DOCUMENT HAS BEEN ELECTRONICALLY SIGNED BY JAREN MITCHELL MD Narrative 09/06/2023 6:48 PM EST PROCEDURE INFORMATION: Exam: CT Abdomen And Pelvis [...] identified. Bones/joints: T8 hemangioma. Soft tissues: Unremarkable. Procedure Note Jaren Mitchell MD - 09/06/2023 PROCEDURE INFORMATION: Exam: CT Abdomen And Pelvis With Contrast Exam date and time: 09/06/2023 6:05 PM Age: 48 years old Clinical indication: Other: Elevated white count, generalized weakness TECHNIQUE: Imaging protocol: Computed tomography of the abdomen and pelvis withcontrast. Radiation optimization: All CT scans at this facility use at least one ofthese dose optimization techniques: automated exposure control; mA and/or kV adjustment per patient size (includes targeted exams where dose is matchedto clinical indication); or iterative reconstruction. Contrast material: [...] the GI tract is limited by lack ofdistension and retained stool. There is no evidence of bowel obstruction. Evidence of enteritis, infectious or inflammatory, with diffuse small bowel wall thickening. The small bowel is moderately distended with fluid. The colonis moderately distended with air and stool. Appendix: [...] of enteritis, infectious or inflammatory, with diffuse smallbowel wall thickening. The small bowel is moderately distended with fluid. THIS DOCUMENT HAS BEEN ELECTRONICALLY SIGNED BY JAREN MITCHELL MD Darien Koo MD RAD CT * US ABDOMEN LIMITED (09/06/2023 4:40 PM EST) Anatomical Region Laterality Modality Abdomen, Body Ultrasound 09/06/2023 3:56 PM EST Impressions 09/06/2023 4:54 PM EST IMPRESSION: 1. Nonspecific diffuse borderline gallbladder wall thickening measuring 3-4 mm, may be due to incomplete distension. 2. Small gallbladder polyps measuring up to 4 mm. THIS DOCUMENT HAS BEEN ELECTRONICALLY SIGNED BY JAREN MITCHELL MD Narrative 09/06/2023 4:54 PM EST PROCEDURE INFORMATION: Exam: US Abdomen, Limited; Right Upper Quadrant Exam date and time: 09/06/2023 3:56 PM Age: 48 years old Clinical indication: Other: Weakness, diarrhea; Additional info: Elevated alkaline phosphatase, generalized weakness TECHNIQUE: Imaging protocol: Real time ultrasound of the abdomen with image documentation. Limited exam focused on the right upper quadrant. COMPARISON: 1. US ABDOMEN COMPLETE 05/10/2019 3:[address] ABD/PELVIS W IV CONTRAST - WO ORAL CONTRAST 08/19/2023 9:25 AM FINDINGS: Liver: Unremarkable. Gallbladder: The gallbladder is incompletely distended. Nonspecific diffuse borderline gallbladder wall thickening measuring 3-4 mm, may be due to incomplete distension. Small gallbladder polyps measuring up to 4 mm. No evidence of cholelithiasis or pericholecystic free fluid. No sonographic Braun sign per synchro assembler report. Biliary ducts: No intrahepatic or extrahepatic biliary ductal dilation. Pancreas: The pancreas is diffusely hypoechoic, similar to prior. Mildly prominent pancreatic duct, also similar to prior. Right kidney: No right hydronephrosis. Extrarenal pelvis on the right is similar to prior. Procedure Note Jaren Mitchell MD - 09/06/2023 PROCEDURE INFORMATION: Exam: US Abdomen, Limited; Right Upper Quadrant Exam date and time: 09/06/2023 3:56 PM Age: 48 years old Clinical indication: Other: Weakness, diarrhea; Additional info: Elevated alkaline phosphatase, generalized weakness TECHNIQUE: Imaging protocol: Real time ultrasound of the abdomen with imagedocumentation. Limited exam focused on the right upper quadrant. COMPARISON: 1. US ABDOMEN COMPLETE 05/10/2019 3:[address] ABD/PELVIS W IV CONTRAST - WO ORAL CONTRAST 08/19/2023 9:25 AM FINDINGS: Liver: Unremarkable. Gallbladder: The gallbladder is incompletely distended. Nonspecificdiffuse borderline gallbladder wall thickening measuring 3-4 mm, may be due to incomplete distension. Small gallbladder polyps measuring up to 4 mm. No evidence of cholelithiasis or pericholecystic free fluid. No sonographicMurphy sign per synchro assembler report. Biliary ducts: No intrahepatic or extrahepatic biliary ductal dilation. Pancreas: The pancreas is diffusely hypoechoic, similar to prior. Mildly prominent pancreatic duct, also similar to prior. Right kidney: No right hydronephrosis. Extrarenal pelvis on the right is similar to prior. IMPRESSION IMPRESSION: 1. Nonspecific diffuse borderline gallbladder wall thickening measuring3-4 mm, may be due to incomplete distension. 2. Small gallbladder polyps measuring up to 4 mm. THIS DOCUMENT HAS BEEN ELECTRONICALLY SIGNED BY JAREN MITCHELL MD Darien Koo MD RAD ULTRA SOUND * XR SHOULDER, 2 OR MORE VIEWS (09/06/2023 3:24 PM EST) Anatomical Region Laterality Modality Upper Extremity, Shoulder Digita l Radiography 09/06/2023 3:15 PM EST Impressions 09/06/2023 3:35 PM EST IMPRESSION: No evidence of acute fracture or subluxation. THIS DOCUMENT HAS BEEN ELECTRONICALLY SIGNED BY JAREN MITCHELL MD Narrative 09/06/2023 3:35 PM EST PROCEDURE INFORMATION: Exam: XR Left Shoulder Exam date and time: 09/06/2023 3:15 PM Age: 48 years old Clinical indication: Other: Generalized weakness and pain; Additional info: Fall with left shoulder pain TECHNIQUE: Imaging protocol: Radiologic exam of the left shoulder. Views: 2 or more views. COMPARISON: CT PET^[facility] (Adult) 01/20/2023 2:48 PM FINDINGS: Bones/joints: Bony structures are intact. Joint spaces are preserved. Soft tissues: Unremarkable. Procedure Note Jaren Mitchell MD - 09/06/2023 PROCEDURE INFORMATION: Exam: XR Left Shoulder Exam date and time: 09/06/2023 3:15 PM Age: 48 years old Clinical indication: Other: Generalized weakness and pain; Additionalinfo: Fall with left shoulder pain TECHNIQUE: Imaging protocol: Radiologic exam of the left shoulder. Views: 2 or more views. COMPARISON: CT PET^[facility] (Adult) 01/20/2023 2:48 PM FINDINGS: Bones/joints: Bony structures are intact. Joint spaces are preserved. Soft tissues: Unremarkable. IMPRESSION IMPRESSION: No evidence of acute fracture or subluxation. THIS DOCUMENT HAS BEEN ELECTRONICALLY SIGNED BY JAREN MITCHELL MD Darien Koo MD RADIOLOGY ([facility]) * XR ABDOMEN OBSTRUCT SERIES W CHEST 1 VIEW (09/06/2023 3:24 PM EST) Anatomical Region Laterality Modality Abdomen, Pelvis Digital Radiogra phy 09/06/2023 3:10 PM EST Impressions 09/06/2023 3:37 PM EST IMPRESSION: Nonobstructive bowel gas pattern. THIS DOCUMENT HAS BEEN ELECTRONICALLY SIGNED BY JAREN MITCHELL MD Narrative 09/06/2023 3:37 PM EST PROCEDURE INFORMATION: Exam: XR Complete Acute Abdomen Series Including Chest Exam date and time: 09/06/2023 3:10 PM Age: 48 years old Clinical indication: Other: Generalized weakness and pain TECHNIQUE: Imaging protocol: Radiologic exam. Complete acute abdomen series, including 2 or more views of the abdomen and a single view chest. COMPARISON: CT ABD/PELVIS W IV CONTRAST - WO ORAL CONTRAST 08/19/2023 9:25 AM FINDINGS: Lungs: No evidence of focal consolidation. Pleural spaces: No evidence of pleural effusion or pneumothorax. Heart/Mediastinum: Cardiomediastinal silhouette is not abnormally enlarged. Gastrointestinal tract: Nonobstructive bowel gas pattern. Intraperitoneal space: No evidence of free air under the diaphragm. Bones/joints: Unremarkable for age. Soft tissues: Unremarkable. Procedure Note Jaren Mitchell MD - 09/06/2023 PROCEDURE INFORMATION: Exam: XR Complete Acute Abdomen Series Including Chest Exam date and time: 09/06/2023 3:10 PM Age: 48 years old Clinical indication: Other: Generalized weakness and pain TECHNIQUE: Imaging protocol: Radiologic exam. Complete acute abdomen series,including 2 or more views of the abdomen and a single view chest. COMPARISON: CT ABD/PELVIS W IV CONTRAST - WO ORAL CONTRAST 08/19/2023 9:25 AM FINDINGS: Lungs: No evidence of focal consolidation. Pleural spaces: No evidence of pleural effusion or pneumothorax. Heart/Mediastinum: Cardiomediastinal silhouette is not abnormallyenlarged. Gastrointestinal tract: Nonobstructive bowel gas pattern. Intraperitoneal space: No evidence of free air under the diaphragm. Bones/joints: Unremarkable for age. Soft tissues: Unremarkable. IMPRESSION IMPRESSION: Nonobstructive bowel gas pattern. THIS DOCUMENT HAS BEEN ELECTRONICALLY SIGNED BY JAREN MITCHELL MD Darien Koo MD RADIOLOGY ([facility]) * CT C SPINE WO CONTRAST (09/06/2023 3:09 PM EST) Anatomical Region Laterality Modality Cspine, Spine, Neck, Vertebra Co mputed Tomography 09/06/2023 3:03 PM EST Impressions 09/06/2023 3:34 PM EST IMPRESSION: No acute findings. THIS DOCUMENT HAS BEEN ELECTRONICALLY SIGNED BY YOVANA KASPER MD Narrative 09/06/2023 3:34 PM EST PROCEDURE INFORMATION: Exam: CT Cervical Spine Without Contrast Exam date and time: 09/06/2023 3:03 PM Age: 48 years old Clinical indication: Other: Neck pain; Trauma; Significant trauma TECHNIQUE: Imaging protocol: Computed tomography of the cervical spine without contrast. Radiation optimization: All CT scans at this facility use at least one of these dose optimization techniques: automated exposure control; mA and/or kV adjustment per patient size (includes targeted exams where dose is matched to clinical indication); or iterative reconstruction. COMPARISON: CT PET^[facility] ([facility]) 01/20/2023 2:48 PM FINDINGS: Bones/joints: No acute fracture. Normal alignment. No significant disc bulge or herniation. No severe spinal canal stenosis. No significant neural foraminal narrowing. Lungs: Lung apices are normal. Soft tissues: Unremarkable. Procedure Note Yovana Kasper MD - 09/06/2023 PROCEDURE INFORMATION: Exam: CT Cervical Spine Without Contrast Exam date and time: 09/06/2023 3:03 PM Age: 48 years old Clinical indication: Other: Neck pain; Trauma; Significant trauma TECHNIQUE: Imaging protocol: Computed tomography of the cervical spine withoutcontrast. Radiation optimization: All CT scans at this facility use at least one ofthese dose optimization techniques: automated exposure control; mA and/or kV adjustment per patient size (includes targeted exams where dose is matchedto clinical indication); or iterative reconstruction. COMPARISON: CT PET^[facility] (Ad[facility]) 01/20/2023 2:48 PM FINDINGS: Bones/joints: No acute fracture. Normal alignment. No significant discbulge or herniation. No severe spinal canal stenosis. No significant neuralforaminal narrowing. Lungs: Lung apices are normal. Soft tissues: Unremarkable. IMPRESSION IMPRESSION: No acute findings. THIS DOCUMENT HAS BEEN ELECTRONICALLY SIGNED BY YOVANA KASPER MD Darien Koo MD RAD CT * CT HEAD/BRAIN WO CONTRAST (09/06/2023 3:09 PM EST) Anatomical Region Laterality Modality Head Computed Tomogra phy 09/06/2023 3:03 PM EST Impressions 09/06/2023 3:31 PM EST IMPRESSION: No acute intracranial abnormality. THIS DOCUMENT HAS BEEN ELECTRONICALLY SIGNED BY YOVANA KASPER MD Narrative 09/06/2023 3:31 PM EST PROCEDURE INFORMATION: Exam: CT Head Without Contrast Exam date and time: 09/06/2023 3:03 PM Age: 48 years old Clinical indication: Other: Fall, generalized weakness TECHNIQUE: Imaging protocol: Computed tomography of the head without contrast. Radiation optimization: All CT scans at this facility use at least one of these dose optimization techniques: automated exposure control; mA and/or kV adjustment per patient size (includes targeted exams where dose is matched to clinical indication); or iterative reconstruction. COMPARISON: CT HEAD/BRAIN WO CONTRAST 08/18/2023 7:56 PM FINDINGS: Brain: Normal. No hemorrhage. Unremarkable white matter. No mass effect. Cerebral ventricles: No ventriculomegaly. Paranasal sinuses: Visualized sinuses are unremarkable. No fluid levels. Mastoid air cells: Visualized mastoid air cells are well aerated. Bones/joints: Unremarkable. No acute fracture. Soft tissues: Unremarkable. Procedure Note Yovana Kasper MD - 09/06/2023 PROCEDURE INFORMATION: Exam: CT Head Without Contrast Exam date and time: 09/06/2023 3:03 PM Age: 48 years old Clinical indication: Other: Fall, generalized weakness TECHNIQUE: Imaging protocol: Computed tomography of the head without contrast. Radiation optimization: All CT scans at this facility use at least one ofthese dose optimization techniques: automated exposure control; mA and/or kV adjustment per patient size (includes targeted exams where dose is matchedto clinical indication); or iterative reconstruction. COMPARISON: CT HEAD/BRAIN WO CONTRAST 08/18/2023 7:56 PM FINDINGS: Brain: Normal. No hemorrhage. Unremarkable white matter. No mass effect. Cerebral ventricles: No ventriculomegaly. Paranasal sinuses: Visualized sinuses are unremarkable. No fluid levels. Mastoid air cells: Visualized mastoid air cells are well aerated. Bones/joints: Unremarkable. No acute fracture. Soft tissues: Unremarkable. IMPRESSION IMPRESSION: No acute intracranial abnormality. THIS DOCUMENT HAS BEEN ELECTRONICALLY SIGNED BY YOVANA KASPER MD Darien Koo MD RAD CT * RESPIRATORY PATHOGEN PANEL, PCR (09/06/2023 2:55 PM EST) Pathologist [facility] Adenovirus by PCR Negative Negative 024 3:54 PM EST LABORATORY [facility] Coronavirus 229E by PCR Negative Negative 09/06/2023 3:54 PM EST LABORATORY [facility] Coronavirus HKU1 by PCR Negative Negative 09/06/2023 3:54 PM EST LABORATORY [facility] Coronavirus NL63 by PCR Negative Negative 09/06/2023 3:54 PM EST LABORATORY [facility] Coronavirus OC43 by PCR Negative Negative 09/06/2023 3:54 PM EST LABORATORY [facility] Coronavirus SARS-CoV-2 by PCR Negative Negative 09/06/2023 3:54 PM EST LABORATORY [facility] Human Metapneumovirus by PCR Negative Negative 09/06/2023 3:54 PM EST LABORATORY [facility] Rhinovirus/Enterovi elgin by PCR Negative Negative 09/06/2023 3:54 PM EST LABORATORY [facility] Influenza A Virus by PCR Negative Negative 09/06/2023 3:54 PM EST LABORATORY [facility] Influenza B Virus by PCR Negative Negative 09/06/2023 3:54 PM EST LABORATORY [facility] Parainfluenza Virus 1 by PCR Negative Negative 09/06/2023 3:54 PM EST LABORATORY [facility] Parainfluenza Virus 2 by PCR Negative Negative 09/06/2023 3:54 PM EST LABORATORY [facility] Parainfluenza Virus 3 by PCR Negative Negative 09/06/2023 3:54 PM EST LABORATORY [facility] Parainfluenza Virus 4 by PCR Negative Negative 09/06/2023 3:54 PM EST LABORATORY [facility] Respiratory Syncytial Virus by PCR Negative Negative 09/06/2023 3:54 PM EST LABORATORY [facility] Bordetella pertussis by PCR Negative Negative 09/06/2023 3:54 PM EST LABORATORY [facility] Chlamydia pneumoniae by PCR Negative Negative 09/06/2023 3:54 PM EST LABORATORY [facility] Mycoplasma pneumoniae by PCR Negative Negative 09/06/2023 3:54 PM EST LABORATORY [facility] Bordetella parapertussis by PCR Negative Negative 09/06/2023 3:54 PM EST LABORATORY [facility] Comment: The primers that detect Rhinovirus may cross react with some Enterorviruses. The validation of bronchial specimens, tracheal aspirates, and throats for this assay was developed and performance characteristics determined by [employer]. The validation of alternate specimen types has not been cleared or approved by the U.S. Food and Drug Administration (FDA). It has been determined that such clearance or approval is not necessary. Upper Respiratory Mid-turbinate nasal swab / Unknown Non-blood Collection / Unknown 09/06/2023 2:55 PM EST 09/06/2023 3:00 PM EST Darien Koo MD LAB MICRO - GENERAL ORDERABLES LABORATORY [address] [address] * LYME DISEASE ANTIBODY SCREEN (09/06/2023 2:41 PM EST) [facility] Lyme Disease Antibody Screen Negative Negative 09/07/2023 8:27 AM EST LABORATORY [facility] Blood Venous blood specimen / Unknown Venipuncture / Unknown 09/06/2023 2:41 PM EST 09/06/2023 2:47 PM EST Darien Koo MD LAB BLOOD ORDERABLES LABORATORY [address] [address] * MONONUCLEOSIS HETEROPHILE ANTIBODY (09/06/2023 2:41 PM EST) Pathologist [facility] Mononucleosis Antibody Negative Negative 09/06/2023 3:34 PM EST LABORATORY [facility] Blood Venous blood specimen / Unknown Venipuncture / Unknown 09/06/2023 2:41 PM EST 09/06/2023 2:47 PM EST Darien Koo MD LAB BLOOD ORDERABLES Performing Organization Address [facility] Co de Phone Number LABORATORY [address] [id number] * CULTURE, BLOOD (09/06/2023 2:41 PM EST) [facility] Blood Culture Growth No growth 09/11/2023 3:01 PM EST LABORATORY [facility] Blood Venous blood specimen / Unknown Venipuncture / Unknown 09/06/2023 2:41 PM EST 09/06/2023 2:46 PM EST Darien Koo MD LAB MICRO - GENERAL ORDERABLES Performing Organization Address [facility] de Phone Number LABORATORY [address] [address] * EKG (09/06/2023 2:36 PM EST) 09/06/2023 2:36 PM EST Narrative Procedure Note Paige Groves DO - 09/06/2023 2:36 PM EST REASON FOR STUDY: WEAKNESS CONCLUSIONS: Normal sinus rhythm Normal ECG When compared with ECG of 19-AUG-2023 04:23, No significant change was found Ventricular Rate: 89 Atrial Rate: 89 MS Interval: 150 QRS Duration: 70 QT/QTc: 366/445 ms P-R-T Sharon: 72 : 65 : 66 degrees Darien Koo MD EKG Performing Organization Address [facility] Co de Phone Number [facility] * CK (09/06/2023 2:36 PM EST) CK 27 26 - 192 U/L 09/08/2023 2:22 PM EST LABORATORY [facility] Blood Venous blood specimen / Unknown Venipuncture / Unknown 09/06/2023 2:36 PM EST 09/06/2023 2:47 PM EST Mychal Hampton MD LAB BLOOD ORD ERABLES Performing Organization Address City/[facility]/ZIP Co de Phone Number LABORATORY [address] [address] * (ABNORMAL) CRP (INFLAMMATORY MARKER) (09/06/2023 2:36 PM EST) Pathologist [facility] CRP (Inflammatory Marker) 23(H) <=5 mg/L 09/08/2023 2:22 PM EST LABORATORY [facility] Blood Venous blood specimen / Unknown Venipuncture / Unknown 09/06/2023 2:36 PM EST 09/06/2023 2:47 PM EST Mychal Hampton MD LAB BLOOD ORD ERABLES Performing Organization Address [facility] Co de Phone Number LABORATORY [address] [address] * PHOSPHORUS (09/06/2023 2:36 PM EST) Pathologist [facility] Phosphorus 3.8 2.5 - 4.8 mg/dL 09/06/2023 8:35 PM EST LABORATORY [facility] Blood Venous blood specimen / Unknown Venipuncture / Unknown 09/06/2023 2:36 PM EST 09/06/2023 2:47 PM EST Michaelle Hunter PA-C LAB BLOOD ORDER BONNIE Performing Organization Address City/[facility] Co de Phone Number LABORATORY [address] [address] * MAGNESIUM (09/06/2023 2:36 PM EST) Pathologist [facility] Magnesium 2.2 1.5 - 2.6 mg/dL 09/06/2023 8:35 PM EST LABORATORY [facility] Blood Venous blood specimen / Unknown Venipuncture / Unknown 09/06/2023 2:36 PM EST 09/06/2023 2:47 PM EST Michaelle Hunter PA-C LAB BLOOD ORDER BONNIE Performing Organization Address City/[facility]/ZIP Co de Phone Number LABORATORY [address] [address] [address] * DIFFERENTIAL, TECHNOLOGIST REVIEW (09/06/2023 2:36 PM EST) Blood Venous blood specimen / Unknown Venipuncture / Unknown 09/06/2023 2:36 PM EST 09/06/2023 2:47 PM EST Darien Koo MD LAB BLOOD ORDERABLES Performing Organization Address [facility]/ZIP Co de Phone Number LABORATORY [address] [address] * (ABNORMAL) BASIC METABOLIC PANEL (09/06/2023 2:36 PM EST) BUN 6 6 - 20 mg/dL 09/06/2023 5:26 PM EST LABORATORY [facility] Creatinine 0.4(L) 0.5 - 1.0 mg/dL 09/06/2023 5:26 PM EST LAB[facility]ATORY [facility] Estimated Glomerular Filtration Rate >90 >=60 mL/min 09/06/2023 5:26 PM EST LAB[facility]ATORY [facility] Comment:eGFR is calculated b ased on the CKD-EPI 2020 equation Sodium 138 135 - 146 mmol/L 09/06/2023 5:26 PM EST LAB[facility]ATORY [facility] Potassium 3.5 3.5 - 5.1 mmol/L 09/06/2023 5:26 PM EST LAB[facility]ATORY [facility] Chloride 102 98 - 107 mmol/L 09/06/2023 5:26 PM EST LAB[facility]ATORY [facility] CO2 21(L) 22 - 32 mmol/L 09/06/2023 5:26 PM EST LAB[facility]ATORY [facility] Anion Gap 15 7 - 15 mmol/L 09/06/2023 5:26 PM EST LAB[facility]ATORY [facility] Glucose 87 70 - 120 mg/dL 09/06/2023 5:26 PM EST LAB[facility]AT[facility] Calcium 9.1 8.4 - 10.2 mg/dL 09/06/2023 5:26 PM EST LAB[facility]ATORY [facility] Blood Venous blood specimen / Unknown Venipuncture / Unknown 09/06/2023 2:36 PM EST 09/06/2023 2:47 PM EST Darien Koo MD LAB BLOOD ORDERABLES Performing Organization Address City/[facility]/ZIP Co de Phone Number LABORATORY [address] [phone] * CULTURE, BLOOD (09/06/2023 2:36 PM EST) [facility] Blood Culture Growth No growth 09/11/2023 3:01 PM EST LABORATORY [facility] Blood Venous blood specimen / Unknown Venipuncture / Unknown 09/06/2023 2:36 PM EST 09/06/2023 2:46 PM EST Darien Koo MD LAB MICRO - GENERAL ORDERABLES Performing Organization Address City/[facility] Co de Phone Number LABORATORY [address] [address] * (ABNORMAL) DIFFERENTIAL, AUTOMATED (09/06/2023 2:36 PM EST) Pathologist [facility] WBC 20.03(H) 4.00 - 10.80 K/uL 09/06/2023 4:04 PM EST LABORATORY [facility] Neutrophils % 78.0(H) 40.0 - 75.0 % 09/06/2023 4:04 PM EST LAB[facility]ATORY [facility] Lymphocytes % 11.0(L) 18.0 - 42.0 % 09/06/2023 4:04 PM EST LAB[facility]ATORY [facility] Monocytes % 8.5 1.0 - 11.0 % 09/06/2023 4:04 PM EST LAB[facility]ATORY [facility] Eosinophils % 1.1 0.0 - 6.0 % 09/06/2023 4:04 PM EST LAB[facility]ATORY [facility] Basophils % 0.7 0.0 - 2.0 % 09/06/2023 4:04 PM EST LAB[facility]ATORY [facility] Immature Granulocytes % 0.7 0.0 - 2.0 % 09/06/2023 4:04 PM EST LABORATORY [facility] Absolute Neutrophils 15.59(H) 1.80 - 7.70 K/uL 09/06/2023 4:04 PM EST LABORATORY [facility] Absolute Lymphocytes 2.21 1.00 - 4.80 K/ul 09/06/2023 4:04 PM EST LABORATORY [facility] Absolute Monocytes 1.70(H) 0.00 - 1.10 K/uL 09/06/2023 4:04 PM EST LABORATORY GL Absolute Eosinophils 0.23 0.00 - 0.70 K/uL 09/06/2023 4:04 PM EST LABORATORY [facility] Absolute Basophils 0.15 0.00 - 0.20 K/uL 09/06/2023 4:04 PM EST LABORATORY GL Absolute Immature Granulocytes 0.15 0.00 - 0.20 K/uL 09/06/2023 4:04 PM EST LABORATORY [facility] Blood Venous blood specimen / Unknown Venipuncture / Unknown 09/06/2023 2:36 PM EST 09/06/2023 2:47 PM EST Darien Koo MD LAB BLOOD ORDERABLES Performing Organization Address City/State/[facility] Co de Phone Number LABORATORY [address] [address] * (ABNORMAL) CBC (09/06/2023 2:36 PM EST) WBC 20.03(H) 4.00 - 10.80 K/uL 09/06/2023 3:27 PM EST LABORATORY [facility] RBC 4.84 3.85 - 5.15 M/uL 09/06/2023 3:27 PM EST LABORATORY [facility] HGB 13.7 12.0 - 15.3 g/dL 09/06/2023 3:27 PM EST LABORATORY GL HCT 42.2 36.0 - 45.2 % 09/06/2023 3:27 PM EST LABORATORY [facility] MCV 87.2 81.5 - 97.5 fL 09/06/2023 3:27 PM EST LABORATORY [facility] MCH 28.3 27.0 - 34.0 pg 09/06/2023 3:27 PM EST LABORATORY [facility] MCHC 32.5 32.0 - 36.0 g/dL 09/06/2023 3:27 PM EST LABORATORY [facility] RDW 16.8 11.5 - 15.5 % 09/06/2023 3:27 PM EST LABORATORY [facility] PLT 1,061(HH) 140 - 400 K/uL 09/06/2023 3:27 PM EST LABORATORY [facility] MPV 8.8 6.6 - 11.1 fL 09/06/2023 3:27 PM EST LABORATORY [facility] nRBCs 0 <=0 /100 WBCs 09/06/2023 3:27 PM EST LABORATORY [facility] Blood Venous blood specimen / Unknown Venipuncture / Unknown 09/06/2023 2:36 PM EST 09/06/2023 2:47 PM EST Darien Koo MD LAB BLOOD ORDERABLES Performing Organization Address City/[facility]/ZIP Co de Phone Number LABORATORY [address] [address] * TROPONIN T, HIGH SENSITIVITY (09/06/2023 2:36 PM EST) Troponin T, High Sensitivity <6 <=14 ng/L 09/06/2023 3:09 PM EST LABORATORY [facility] Blood Venous blood specimen / Unknown Venipuncture / Unknown 09/06/2023 2:36 PM EST 09/06/2023 2:47 PM EST Darien Koo MD LAB BLOOD ORDERABLES LABORATORY [address] [address] * PT INR (09/06/2023 2:36 PM EST) Prothrombin Time 13.7 11.6 - 15.2 seconds 09/06/2023 3:37 PM EST LABORATORY [facility] INR 1.1 0.8 - 1.2 09/06/2023 3:37 PM EST LABORATORY [facility] Blood Venous blood specimen / Unknown Venipuncture / Unknown 09/06/2023 2:36 PM EST 09/06/2023 2:47 PM EST Narrative LABORATORY [facility] - 09/06/2023 3:37 PM EST Warfarin Therapy INR: 2.0-3.0 conventional anticoagulation INR: 2.5-3.5 high intensity anticoagulation Darien Koo MD LAB BLOOD ORDERABLES Performing Organization Address City/[facility]/ZIP Co de Phone Number LABORATORY [address] [phone] * LACTATE WITH REFLEX IF ABNORMAL (09/06/2023 2:36 PM EST) Lactate 1.7 0.4 - 2.0 mmol/L 09/06/2023 3:04 PM EST LABORATORY [facility] Blood Venous blood specimen / Unknown Venipuncture / Unknown 09/06/2023 2:36 PM EST 09/06/2023 2:47 PM EST Darien Koo MD LAB BLOOD ORDERABLES Performing Organization Address City/[facility] de Phone Number LABORATORY [address] [address] * (ABNORMAL) HEPATIC FUNCTION PANEL (09/06/2023 2:36 PM EST) Albumin 3.3(L) 3.8 - 5.0 g/dL 09/06/2023 3:08 PM EST LABORATORY [facility] AST 33 10 - 35 U/L 09/06/2023 3:08 PM EST LAB[facility]ATORY [facility] Alkaline Phosphatase 142(H) 35 - 130 U/L 09/06/2023 3:08 PM EST LAB[facility]ATORY [facility] ALT 27 10 - 35 U/L 09/06/2023 3:08 PM EST LAB[facility] Bilirubin, Total 0.2 <=1.2 mg/dL 09/06/2023 3:08 PM EST LAB[facility]AT[facility] Bilirubin, Direct <0.2 0.0 - 0.3 mg/dL 09/06/2023 3:08 PM EST LAB[facility] Protein 6.8 6.0 - 8.3 g/dL 09/06/2023 3:08 PM EST LAB[facility] Blood Venous blood specimen / Unknown Venipuncture / Unknown 09/06/2023 2:36 PM EST 09/06/2023 2:47 PM EST Darien Koo MD LAB BLOOD ORDERABLES LABORATORY [address] [address] * BLOOD GAS, VENOUS (09/06/2023 2:36 PM EST) Temperature 37.0 C 09/06/2023 2:46 PM EST LABORATORY [facility] pH, Venous 7.390 7.320 - 7.430 units 09/06/2023 2:46 PM EST LAB[facility]ATORY [facility] pCO2, Venous 43.4 40.0 - 60.0 mmHg 09/06/2023 2:46 PM EST LAB[facility] pO2, Venous 31.7 25.0 - 50.0 mmHg 09/06/2023 2:46 PM EST LAB[facility]ATORY [facility] Base Excess, Venous 1.0 -2.0 - 2.0 mmol/L 09/06/2023 2:46 PM EST LAB[facility] Hemoglobin, Whole Blood 13.9 12.0 - 15.3 g/dL 09/06/2023 2:46 PM EST LAB[facility] Oxyhemoglobin, Venous 48.7 40.0 - 85.0 % total Hgb 09/06/2023 2:46 PM EST LAB[facility] Carboxyhemoglobi n, Whole Blood 0.8 <=1.5 % total Hgb 09/06/2023 2:46 PM EST LAB[facility]ORY [facility] Comment:Smokers: 0-9.0 % Methemoglobin, Whole Blood 0.8 <=1.5 % total Hgb 09/06/2023 2:46 PM EST LAB[facility]ATORY [facility] Reduced Hemoglobin, Venous 49.7 % total Hgb 09/06/2023 2:46 PM EST LAB[facility]ATORY [facility] O2 Content, Venous 9.5 7.0 - 18.0 %vol 09/06/2023 2:46 PM EST LAB[facility]ATORY [facility] Bicarbonate, Whole Blood 25.7 23.0 - 31.0 mmol/L 09/06/2023 2:46 PM EST LABORATORY [facility] Blood Venous blood specimen / Unknown Venipuncture / Unknown 09/06/2023 2:36 PM EST 09/06/2023 2:42 PM EST Darien Koo MD LAB BLOOD ORDERABLES LABORATORY [facility] [address] [place] [address] documented in this encounter Visit Diagnoses Diagnosis Generalized weakness- Primary Other malaise and fatigue Generalized weakness Other malaise and fatigue Leukocytosis, unspecified type Thrombocytosis Essential thrombocythemia Enteritis Other and unspecified noninfectious gastroenteritis and colitis Chest pain Chest pain, unspecified Electrolyte abnormality Electrolyte and fluid disorders not elsewhere classified Anorexia [R63.0] Anorexia Personal history of other diseases of the digestive system Malnutrition of moderate degree (HCC) Malnutrition of moderate degree Celiac disease Anemia Anemia, unspecified Thrombocytosis Essential thrombocythemia Pyoderma gangrenosum Other iron deficiency anemias Abnormal CT of the abdomen Nonspecific (abnormal) findings on radiological and other examination of abdominal area, including retroperitoneum Acute pharyngitis Dysphagia Dysphagia, unspecified Abnormal findings on esophagogastroduodenoscopy (EGD) documented in this encounter Administered Medications Inactive Administered Medications - up to 3 most recent administrations Medication Order MAR Action Action Date Dose Rate Site Acetaminophen (Tylenol) tab 650 mg 650 mg, Oral, Q6H PRN Pain, Mild, Fever >38C(100.5F), Starting on Mon09/06/23 at 2009, Until Mon09/12/23 at 1757, Maximum of 4 grams (4000 mg) per day. Given 09/11/2023 9:39 PM EST 650 mg [id number] infusion Intravenous, at 75 mL/hr, CONTINUOUS, Starting on Mon09/06/23 at 2100, Until Mon09/07/23 at 0859 Rate Verify 09/07/2023 6:54 AM EST 75 mL/hr Restarted 09/07/2023 5:38 AM EST 75 mL/hr Rate Verify 09/06/2023 11:19 PM EST 75 mL/hr Fluconazole (Diflucan) tab 400 mg 400 mg, Oral, Q24H, First dose on Mon09/09/23 at 0900, Last dose on Mon09/13/23 at 0900, For 5 doses Given 09/11/2023 11:05 AM EST 400 mg Given 09/10/2023 8:23 AM EST 400 mg Given 09/09/2023 10:00 AM EST 400 mg Fluconazole (Diflucan) tab 800 mg 800 mg, Oral, ONCE, On Mon09/08/23 at 1445, For 1 dose Given 09/08/2023 4:07 PM EST 800 mg folic acid tab 1 mg 1 mg, Oral, Daily(AM), First dose (after last modification) on Mon09/10/23 at 0900, Until Discontinued Given 09/12/2023 8:44 AM EST 1 mg Given 09/11/2023 11:05 AM EST 1 mg Given 09/10/2023 8:31 AM EST 1 mg folic acid tab 5 mg 5 mg, Oral, Daily(AM), First dose on Mon09/08/23 at 0900, Until Discontinued Given 09/09/2023 10:01 AM EST 5 mg Given 09/08/2023 8:28 AM EST 5 mg Furosemide (Lasix) tab 10 mg 10 mg, Oral, Daily(AM), First dose on Mon09/07/23 at 0900, Until Discontinued Given 09/12/2023 8:44 AM EST 10 mg Given 09/10/2023 8:23 AM EST 10 mg Given 09/09/2023 10:01 AM EST 10 mg hEParin inj 5,000 Units 5,000 Units, Subcutaneous, Q12H, First dose on Mon09/07/23 at 0900, Until Discontinued Given 09/12/2023 8:44 AM EST 5,000 Units Abdomen Left Lower Given 09/11/2023 9:43 PM EST 5,000 Units A bdomen Right Lower Given 09/11/2023 11:05 AM EST 5,000 Units Abdomen Left Lower Ioversol (Optiray 350) 74 % inj 100 mL 100 mL, Intravenous, ONCE, On Mon09/06/23 at 1900, For 1 dose, Radiology Medication Routing (Non-IR) Given 09/06/2023 6:21 PM EST 100 mL isolyte-S pH 7.4 infusion Intravenous, at 75 mL/hr, for Outpatient patient Plasma-LYTE 148, isolyte-S, and isolyte-S pH 7.4 are considered equivalent - including for MAR barcode scanning., CONTINUOUS, Starting on Mon09/11/23 at 1000, Until Mon09/11/23 at 1112, Pre-Op Continue from Pre-Op 09/11/2023 9:35 AM EST 100 mL/hr New Bag 09/11/2023 9:27 AM EST 75 mL/hr 75 mL/hr melatonin tab 3 mg 3 mg, Oral, HS PRN Insomnia, Starting on Mon09/06/23 at 2009, Until Mon09/12/23 at 1757 Given 09/10/2023 9:05 PM EST 3 mg Given 09/08/2023 10:08 PM EST 3 mg methylPREDNISolone sodium succ (SOLU-Medrol) inj 20 mg 20 mg, IV Push, Q8H, First dose on Mon09/08/23 at 1445, Until Discontinued Given 09/12/2023 5:54 AM EST 20 mg Given 09/11/2023 9:43 PM EST 20 mg Given 09/11/2023 2:48 PM EST 20 mg midodrine (Proamatine) tab 5 mg 5 mg, Oral, TID(AM/NOON/HS), First dose on Mon09/06/23 at 2200, Until Discontinued Given 09/12/2023 12:13 PM EST 5 mg Given 09/12/2023 5:45 AM EST 5 mg Given 09/11/2023 9:39 PM EST 5 mg NSS infusion Intravenous, at 150 mL/hr, ONCE, 1 dose, On Mon09/06/23 at 1500 Restarted 09/06/2023 7:45 PM EST 15 0 mL/hr Restarted 09/06/2023 6:21 PM EST 150 mL/hr New Bag 09/06/2023 4:32 PM EST 150 mL/hr PRO-STAT MAX oral liquid 30 mL, Enteral, BID (.AM/PM), First dose on Mon09/07/23 at 2100, Until Discontinued Given 09/12/2023 8:44 AM EST 30 mL Given 09/11/2023 9:44 PM EST 30 mL Given 09/11/2023 11:04 AM EST 30 mL sodium chloride 0.9 % flush peripheral radha 3 mL 3 mL, IV Push, QSHIFT, First dose on Mon09/07/23 at 0000, Until Discontinued, Do not flush if lock, PICC, or central line not in place; IV infusing or unable to flush. Given 09/12/2023 8:00 AM EST 3 mL Given 09/12/2023 12:07 AM EST 3 mL Given 09/11/2023 4:00 PM EST 3 mL documented in this encounter Active and Recently Administered Medications Times are shown in EST. Scheduled Medication Order 09/10/2023 09/11/2023 09/12/2023 Fluconazole (Diflucan) tab 400 mg (CANCELED) 400 mg, Oral, Q24H, First dose on Mon09/09/23 at 0900, Last dose on Mon09/13/23 at 0900, For 5 doses 08 (Given - Provider: Dede Richter RN) 110 (Given - Provider: Dora Soni RN) folic acid tab 1 mg 1 mg, Oral, Daily(AM), First dose (after last modification) on Mon09/10/23 at 0900, Until Discontinued 08 (Given - Provider: Dede Richter RN) 110 (Given - Provider: Dora Soni RN) 0844 (Given - Provider: Dora Soni RN) Furosemide (Lasix) tab 10 mg 10 mg, Oral, Daily(AM), First dose on Mon09/07/23 at 0900, Until Discontinued 822 (Given - Provider: Dede Richter RN) 0900 (Not Given - Provider: Dora Soni RN - Reason: Parameter(s) Not Met - Comment: BP 99/[address] Hampton to hold) 0844 (Given - Provider: Dora Soni RN) hEParin inj 5,000 Units 5,000 Units, Subcutaneous, Q12H, First dose on Cari 09/07/23 at 0900, Until Discontinued 822 (Given - Provider: Dede Richter RN)2104 (Given - Provider: Neelam Moreland RN) 110 (Given - Provider: Dora Soni RN)214 (Given - Provider: Daisy Licona RN) 0844 (Given - Provider: Dora Soni RN) methylPREDNISolone sodium succ (SOLU-Medrol) inj 20 mg 20 mg, IV Push, Q8H, First dose on Mon09/08/23 at 1445, Until Discontinued 0631 (Given - Provider: Cynthia Calles, RN)1528 (Given - Provider: Dede Richter, REE)210 (Given - Provider: Neelam Moreland RN) 0540 (Given - Provider: Neelam Moreland RN)1448 (Given - Provider: Dora Soni, REE)2143 (Given - Provider: Daisy Licona, RN) 0554 (Given - Provider: Deepali Napoles, REE) midodrine (Proamatine) tab 5 mg 5 mg, Oral, TID(AM/NOON/HS), First dose on Mon09/06/23 at 2200, Until Discontinued 0632 (Given - Provider: Cynthia Calles RN)1229 (Given - Provider: Dede Richter RN)210 (Given - Provider: Neelam Moreland RN) 0600 (Not Given - Provider: Neelam Moreland RN - Reason: NPO)1145 (Given - Provider: Dora Soni RN)213 (Given - Provider: Daisy Licona RN) 0545 (Given - Provider: Deepali Napoles, REE)1213 (Given - Provider: Dora Soni, REE) PRO-STAT MAX oral liquid 30 mL, Enteral, BID (.AM/PM), First dose on Mon09/07/23 at 2100, Until Discontinued 0823 (Given - Provider: Dede Richter RN)2100 (Not Given - Provider: Neelam Moreland RN - Reason: Refused-Notify Provider) 1104 (Given - Provider: Dora Soni RN)2144 (Given - Provider: Daisy Licona, REE) 0844 (Given - Provider: Dora Soni, REE) sodium chloride 0.9 % flush peripheral radha 3 mL 3 mL, IV Push, QSHIFT, First dose on Mon09/07/23 at 0000, Until Discontinued, Do not flush if lock, PICC, or central line not in place; IV infusing or unable to flush. 0000 (Given - Provider: Cynthia Calles, REE)0800 (Given - Provider: Dede Richter RN)1600 (Given - Provider: Dede Richter RN) 0000 (Given - Provider: Neelam Moreland RN)0800 (Given - Provider: Dora Soni, REE)1600 (Given - Provider: Dora Soni RN) 0007 (Given - Provider: Deepali Napoles RN)0800 (Given - Provider: Dora Soni RN) Continuous Medication Order 09/10/2023 09/11/2023 09/12/2023 isolyte-S pH 7.4 infusion (CANCELED) Intravenous, at 75 mL/hr, for Outpatient patient Plasma-LYTE 148, isolyte-S, and isolyte-S pH 7.4 are considered equivalent - including for MAR barcode scanning., CONTINUOUS, Starting on Mon09/11/23 at 1000, Until Mon09/11/23 at 1112, Pre-Op 09 (New Bag - Provider: Amarilis Montes De Oca LPN)0935 (Continue from Pre-Op - Provider: Christina Peña CRNA)0944 (Stopped - Provider: Christina Peña CRNA) PRN Medication Order 09/10/2023 09/11/2023 09/12/2023 Acetaminophen (Tylenol) tab 650 mg 650 mg, Oral, Q6H PRN Pain, Mild, Fever >38C(100.5F), Starting on Mon09/06/23 at 2008, Until Mon09/12/23 at 1757, Maximum of 4 grams (4000 mg) per day. 2138 (Given - Provider: Daisy Licona RN) Docusate Sodium (Colace) cap 100 mg 100 mg, Oral, DAILY PRN Constipation, Starting on Mon09/06/23 at 2008, Until Mon09/12/23 at 1757, For oral administration ONLY, if route of administration is other than oral and alternative product must be ordered. melatonin tab 3 mg 3 mg, Oral, HS PRN Insomnia, Starting on Mon09/06/23 at 2008, Until Mon09/12/23 at 1757 2105 (Given - Provider: Neelam Moreland RN) ondansetron (Zofran) inj 4 mg 4 mg, IV Push, Q6H PRN Nausea, Starting on Mon09/06/23 at 2008, Until Mon09/12/23 at 1757 sodium chloride 0.9 % flush/inj 3 mL 3 mL, IV Push, PRN Other, Line Patency, Starting on Mon09/06/23 at 2008, Until Mon09/12/23 at 1757, Do not flush if lock, PICC, or central line not in place, IV infusing or unable to flush documented in this encounter Additional Health Concerns Infection Onset Date Last Indicated Resolved Time Respiratory Rule-Out 09/06/2023 09/06/2023 024 3:54 PM EST COVID-19 Rule-Out 09/06/2023 09/06/2023 09/06/2023 3:54 PM EST Gastrointestinal Rule-Out 09/08/2023 09/09/2023 11:30 PM EST C. difficile Rule-Out 09/08/2023 09/09/20232023 8:01 AM EST documented as of this encounter Advance Directives Latest [...] Discussed due to patient's condition Care Teams Station Baggage Agent Relationship Specialty Start Date End Date Phoenix Barker PA-C [facility] Juan CELESTE Yao [id number] PCP - General Physician Application Development Project Manager 09/12/23 documented as of this encounter
--- OUTSIDE RECORDS SUMMARY | 2023-10-17 06:38 | External Medical Summary ---
Author Name Unknown Address Unknown Organization K1F:LABORATORY [facility] - [address] [place] [address] Laboratory Report Ordering Provider Test Date Status JUAN PABLO WETZEL 09/12/2023 04:40:00 Final Observation Date Value Abnormality Reference (Units ) Status CRP, low-sensitivity 09/12/2023 04:40:00 4 <=5 (mg/L) Final Performing Location LABORATORY [facility] - [address] [place] [address]
--- OUTSIDE RECORDS SUMMARY | 2023-10-17 06:38 | External Medical Summary ---
Author Name Unknown Address Unknown Organization K1F:LABORATORY [facility] - [address] [place] [address] Laboratory Report Ordering Provider Test Date Status DALE BRASWELL 09/11/2023 04:33:00 Final Observation Date Value Abnormality Reference (Units ) Status Magnesium 09/11/2023 04:33:00 2.5 1.5-2.6 (m g/dL) Final Performing Location LABORATORY [facility] - [address] [place] [address]
--- OUTSIDE RECORDS SUMMARY | 2023-10-17 06:38 | External Medical Summary ---
Author Name Unknown Address Unknown Organization : Laboratory Report Ordering Provider Test Date Status MIRACLE PEPPER 09/09/2023 06:22:51 Final Observation Date Value Abnormality Reference (Units ) Status Ova and parasites identified in Stool by Trichrome stain--3rd specimen 09/09/2023 06:22:51 SEE BELOW Final Ova and Parasites, Concentra te and Permanent Smear
Examination for Ova and Parasites
SOURCE : STOOL
Result/Comment:
NO OVA AND PARASITES SEEN.
Reference Range: No Ova and Parasites seen
Routine Ova and Parasite Exam may not detect some
parasites that occasionally cause diarrheal illness.
Cryptosporidium Antigen and/or Cyclospora and Isospora
Exam may be ordered to detect these parasites.
One negative sample does not necessarily rule out the
presence of a parasitic infection.
Assay performed by wet mount after concentration.
Parasite Exam, Trichrome Stain
SOURCE : STOOL
Result/Comment:
NO OVA AND PARASITES SEEN.
Routine Ova and Parasite Exam may not detect some
parasites that occasionally cause diarrheal illness.
Cryptosporidium Antigen and/or Cyclospora and Isospora
Exam may be ordered to detect these parasites.
One negative sample does not necessarily rule out the
presence of a parasitic infection.
For additional information, please refer to
https://education.ForMune/faq/TAK972
(This link is being provided for informational/
educational purposes only.)

Test Performed at:
[employer] [facility]
[address]
[place] [address]
Sorin Carver M.D., Ph.D.,Director of Laboratories Performing Location
--- OUTSIDE RECORDS SUMMARY | 2023-10-17 06:38 | External Medical Summary ---
Author Name Unknown Address Unknown Organization K1F:LABORATORY [facility] - [address] [place] [address] [address] [place] [address] Laboratory Report Ordering Provider Test Date Status DALE BRASWELL 09/12/2023 04:40:00 Final Observation Date Value Abnormality Reference (Units ) Status WBC, Total 09/12/2023 04:40:00 27.47 Above high normal 4.00-10.80 (K/uL) Final RBC 09/12/2023 04:40:00 4.69 3.85-5.15 (M/uL) Final Hemoglobin 09/12/2023 04:40:00 13.4 12.0-15.3 (g/dL) Final HCT 09/12/2023 04:40:00 41.1 36.0-45.2 (%) Final MCV 09/12/2023 04:40:00 87.6 81.5-97.5 (fL) Final MCH 09/12/2023 04:40:00 28.6 27.0-34.0 (pg) Final MCHC 09/12/2023 04:40:00 32.6 32.0-36.0 (g/dL) Final RDW 09/12/2023 04:40:00 16.8 11.5-15.5 (%) Final Platelets 09/12/2023 04:40:00 1057 Above upper panic limits 140-400 (K/uL) Final MPV 09/12/2023 04:40:00 9.8 6.6-11.1 (fL) Final Nucleated erythrocytes/100 leukocytes [Ratio] in Blood by Automated count 09/12/2023 04:40:00 0 <=0 (/100 WBCs) Final Performing Location LABORATORY [facility] - [address] [place] [address]
--- OUTSIDE RECORDS SUMMARY | 2023-10-17 06:38 | External Medical Summary ---
Author Name Unknown Address Unknown Organization K1F:LABORATORY [facility] - [address] [place] [address] Laboratory Report Ordering Provider Test Date Status DALE BRASWELL 09/10/2023 05:16:00 Final Observation Date Value Abnormality Reference (Units ) Status Magnesium 09/10/2023 05:16:00 2.4 1.5-2.6 (m g/dL) Final Performing Location LABORATORY [facility] - [address] [place] [address]
--- OUTSIDE RECORDS SUMMARY | 2023-10-17 06:38 | External Medical Summary ---
Author Name Unknown Address Unknown Organization K1F:LABORATORY [facility] - [address] [place] [address] [address] [place] [address] Laboratory Report Ordering Provider Test Date Status DALE BRASWELL 09/11/2023 04:33:00 Final Observation Date Value Abnormality Reference (Units ) Status WBC, Total 09/11/2023 04:33:00 25.97 Above high normal 4.00-10.80 (K/uL) Final RBC 09/11/2023 04:33:00 4.73 3.85-5.15 (M/uL) Final Hemoglobin 09/11/2023 04:33:00 13.3 12.0-15.3 (g/dL) Final HCT 09/11/2023 04:33:00 41.1 36.0-45.2 (%) Final MCV 09/11/2023 04:33:00 86.9 81.5-97.5 (fL) Final MCH 09/11/2023 04:33:00 28.1 27.0-34.0 (pg) Final MCHC 09/11/2023 04:33:00 32.4 32.0-36.0 (g/dL) Final RDW 09/11/2023 04:33:00 16.6 11.5-15.5 (%) Final Platelets 09/11/2023 04:33:00 1096 Above upper panic limits 140-400 (K/uL) Final MPV 09/11/2023 04:33:00 9.3 6.6-11.1 (fL) Final Nucleated erythrocytes/100 leukocytes [Ratio] in Blood by Automated count 09/11/2023 04:33:00 0 <=0 (/100 WBCs) Final Performing Location LABORATORY [facility] - [address] [place] [id number]
--- OUTSIDE RECORDS SUMMARY | 2023-10-17 06:38 | External Medical Summary ---
Author Name Unknown Address Unknown Organization [id number]:LABORATORY [facility] - [address] [place] [id number] Laboratory Report Ordering Provider Test Date Status DALE BRASWELL 09/12/2023 04:40:00 Final Observation Date Value Abnormality Reference (Units ) Status Phosphate 09/12/2023 04:40:00 3.8 2.5-4.8 (m g/dL) Final Performing Location LABORATORY [facility] - [address] [place] [id number]
--- OUTSIDE RECORDS SUMMARY | 2023-10-17 06:38 | External Medical Summary ---
Author Name Unknown Address Unknown Organization [id number]:LABORATORY [facility] - [address] [place] [address] Laboratory Report Ordering Provider Test Date Status DALE BRASWELL 09/11/2023 04:33:00 Final Observation Date Value Abnormality Reference (Units ) Status BUN 09/11/2023 04:33:00 11 6-20 (mg/dL) Final Creatinine 09/11/2023 04:33:00 0.4 Below low normal 0.5-1.0 (mg/dL) Final Glomerular filtration rate/1.73 sq M.predicted [Volume Rate/Area] in Serum, Plasma or Blood by Creatinine-based formula (CKD-EPI) 09/11/2023 04:33:00 >90 >=60 (mL/min) Final eGFR is calculated based on the CKD-EPI 2020 equation SODIUM 09/11/2023 04:33:00 138 135-146 (m mol/L) Final Potassium 09/11/2023 04:33:00 4.4 3.5-5.1 (m mol/L) Final Cl 09/11/2023 04:33:00 101 98-107 (mm ol/L) Final CO2 09/11/2023 04:33:00 25 22-32 (mmo l/L) Final Anion gap 09/11/2023 04:33:00 12 7-15 (mmol /L) Final Glucose 09/11/2023 04:33:00 167 Above high normal 70 -120 (mg/dL) Final Calcium 09/11/2023 04:33:00 9.3 8.4-10.2 ( mg/dL) Final Performing Location LABORATORY [facility] - [address] [place] [address]
--- OUTSIDE RECORDS SUMMARY | 2023-10-17 06:38 | External Medical Summary ---
Author Name Unknown Address Unknown Organization [id number]:LABORATORY [facility] - [address] [place] [address] Laboratory Report Ordering Provider Test Date Status DALE BRASWELL 09/12/2023 04:40:00 Final Observation Date Value Abnormality Reference (Units ) Status BUN 09/12/2023 04:40:00 14 6-20 (mg/dL) Final Creatinine 09/12/2023 04:40:00 0.4 Below low normal 0.5-1.0 (mg/dL) Final Glomerular filtration rate/1.73 sq M.predicted [Volume Rate/Area] in Serum, Plasma or Blood by Creatinine-based formula (CKD-EPI) 09/12/2023 04:40:00 >90 >=60 (mL/min) Final eGFR is calculated based on the CKD-EPI 2020 equation SODIUM 09/12/2023 04:40:00 137 135-146 (m mol/L) Final Potassium 09/12/2023 04:40:00 4.3 3.5-5.1 (m mol/L) Final Cl 09/12/2023 04:40:00 99 98-107 (mm ol/L) Final CO2 09/12/2023 04:40:00 24 22-32 (mmo l/L) Final Anion gap 09/12/2023 04:40:00 14 7-15 (mmol /L) Final Glucose 09/12/2023 04:40:00 162 Above high normal 70 -120 (mg/dL) Final Calcium 09/12/2023 04:40:00 9.3 8.4-10.2 ( mg/dL) Final Performing Location LABORATORY [facility] - [address] [place] [address]
--- OUTSIDE RECORDS SUMMARY | 2023-10-17 06:38 | External Medical Summary ---
Author Name Unknown Address Unknown Organization K1F:LABORATORY [facility] - [address] [place] [address] Laboratory Report Ordering Provider Test Date Status DALE BRASWELL 09/10/2023 05:16:00 Final Observation Date Value Abnormality Reference (Units ) Status BUN 09/10/2023 05:16:00 9 6-20 (mg/dL) Final Creatinine 09/10/2023 05:16:00 0.4 Below low normal 0.5-1.0 (mg/dL) Final Glomerular filtration rate/1.73 sq M.predicted [Volume Rate/Area] in Serum, Plasma or Blood by Creatinine-based formula (CKD-EPI) 09/10/2023 05:16:00 >90 >=60 (mL/min) Final eGFR is calculated based on the CKD-EPI 2020 equation SODIUM 09/10/2023 05:16:00 141 135-146 (m mol/L) Final Potassium 09/10/2023 05:16:00 4.2 3.5-5.1 (m mol/L) Final Cl 09/10/2023 05:16:00 105 98-107 (mm ol/L) Final CO2 09/10/2023 05:16:00 22 22-32 (mmo l/L) Final Anion gap 09/10/2023 05:16:00 14 7-15 (mmol /L) Final Glucose 09/10/2023 05:16:00 170 Above high normal 70 -120 (mg/dL) Final Calcium 09/10/2023 05:16:00 9.5 8.4-10.2 ( mg/dL) Final Performing Location LABORATORY [facility] - [address] [place] [address]
--- OUTSIDE RECORDS SUMMARY | 2023-10-17 06:38 | External Medical Summary ---
Author Name Unknown Address Unknown Organization K01:[place] [place] [address] [place] [address] Laboratory Report Ordering Provider Test Date Status JUAN PABLO WETZEL 09/12/2023 04:40:00 Final Observation Date Value Abnormality Reference (Units ) Status Erythrocyte sedimentation rate by Photometric method 09/12/2023 04:40:00 31 Above high normal <20 (mm/hour) Final Performing Location [facility] [place] [address] [place] [address]
--- OUTSIDE RECORDS SUMMARY | 2023-10-17 06:38 | External Medical Summary ---
Author Name Unknown Address Unknown Organization K1F:LABORATORY [facility] - [address] [place] [address] Laboratory Report Ordering Provider Test Date Status DALE BRASWELL 09/10/2023 05:16:00 Final Observation Date Value Abnormality Reference (Units ) Status Phosphate 09/10/2023 05:16:00 3.7 2.5-4.8 (m g/dL) Final Performing Location LABORATORY [facility] - [address] [place] [address]
--- OUTSIDE RECORDS SUMMARY | 2023-10-17 06:38 | External Medical Summary ---
Author Name Unknown Address Unknown Organization K1F:LABORATORY [facility] - [address] [place] [address] [address] [place] [address] Laboratory Report Ordering Provider Test Date Status DALE BRASWELL 09/10/2023 05:16:00 Final Observation Date Value Abnormality Reference (Units ) Status WBC, Total 09/10/2023 05:16:00 31.30 Above high normal 4.00-10.80 (K/uL) Final RBC 09/10/2023 05:16:00 4.64 3.85-5.15 (M/uL) Final Hemoglobin 09/10/2023 05:16:00 13.2 12.0-15.3 (g/dL) Final HCT 09/10/2023 05:16:00 40.0 36.0-45.2 (%) Final MCV 09/10/2023 05:16:00 86.2 81.5-97.5 (fL) Final MCH 09/10/2023 05:16:00 28.4 27.0-34.0 (pg) Final MCHC 09/10/2023 05:16:00 33.0 32.0-36.0 (g/dL) Final RDW 09/10/2023 05:16:00 16.7 11.5-15.5 (%) Final Platelets 09/10/2023 05:16:00 1110 Above upper panic limits 140-400 (K/uL) Final MPV 09/10/2023 05:16:00 9.0 6.6-11.1 (fL) Final Nucleated erythrocytes/100 leukocytes [Ratio] in Blood by Automated count 09/10/2023 05:16:00 0 <=0 (/100 WBCs) Final Performing Location LABORATORY [facility] - [address] [place] [address]
--- OUTSIDE RECORDS SUMMARY | 2023-10-17 06:38 | External Medical Summary ---
Author Name Unknown Address Unknown Organization K1F:LABORATORY [facility] - [address] [place] [address] Laboratory Report Ordering Provider Test Date Status DALE BRASWELL 09/11/2023 04:33:00 Final Observation Date Value Abnormality Reference (Units ) Status Phosphate 09/11/2023 04:33:00 3.8 2.5-4.8 (m g/dL) Final Performing Location LABORATORY [facility] - [address] [place] [address]
--- OUTSIDE RECORDS SUMMARY | 2023-10-17 06:38 | External Medical Summary ---
Author Name Unknown Address Unknown Organization K1F:LABORATORY [facility] - [address] [place] [address] Laboratory Report Ordering Provider Test Date Status DALE BRASWELL 09/12/2023 04:40:00 Final Observation Date Value Abnormality Reference (Units ) Status Magnesium 09/12/2023 04:40:00 2.7 Above high normal 1. 5-2.6 (mg/dL) Final Performing Location LABORATORY [facility] - [address] [place] [address]
--- OUTSIDE RECORDS SUMMARY | 2023-10-17 06:39 | External Medical Summary ---
Author Name Unknown Address Unknown Organization K01:LABORATORY [facility] [place] - [address] [place] [address] Laboratory Report Ordering Provider Test Date Status JUANITO CHOUDUHRY 09/08/2023 05:24:00 Final Observation Date Value Abnormality Reference (Units ) Status Erythrocyte sedimentation rate by Photometric method 09/08/2023 05:24:00 52 Above high normal <20 (mm/hour) Final Performing Location LABORATORY [facility] [place] - [address] [place] [address]
--- OUTSIDE RECORDS SUMMARY | 2023-10-17 06:39 | External Medical Summary ---
Author Name Unknown Address Unknown Organization K01:[place] [facility] [place] [address] [facility] [address] Laboratory Report Ordering Provider Test Date Status SUSAN CARLSON 09/07/2023 04:33:00 Final Observation Date Value Abnormality Reference (Units ) Status Ferritin 09/07/2023 04:33:00 47 13-150 (ng /mL) Final Postmenopausal women have hi gher ferritin levels than pre-menopausal women. The above reference interval is based on pre-menopausal women. Performing Location LABORATORY C - [address] [place] [address]
--- OUTSIDE RECORDS SUMMARY | 2023-10-17 06:39 | External Medical Summary ---
Author Name Unknown Address Unknown Organization K1F:LABORATORY [facility] - [address] [place] [address] Laboratory Report Ordering Provider Test Date Status DALE BRASWELL 09/08/2023 05:24:00 Final Observation Date Value Abnormality Reference (Units ) Status Phosphate 09/08/2023 05:24:00 3.8 2.5-4.8 (m g/dL) Final Performing Location LABORATORY [facility] - [address] [place] [address]
--- OUTSIDE RECORDS SUMMARY | 2023-10-17 06:39 | External Medical Summary ---
Author Name Unknown Address Unknown Organization K1F:LABORATORY [facility] - [address] [place] [address] Laboratory Report Ordering Provider Test Date Status DALE BRASWELL 09/09/2023 06:18:00 Final Observation Date Value Abnormality Reference (Units ) Status Magnesium 09/09/2023 06:18:00 2.3 1.5-2.6 (m g/dL) Final Performing Location LABORATORY [facility] - [address] [place] [address]
--- OUTSIDE RECORDS SUMMARY | 2023-10-17 06:39 | External Medical Summary ---
Author Name Unknown Address Unknown Organization K01:LABORATORY [facility] - [address] [place] [address] Laboratory Report Ordering Provider Test Date Status JUANITO CHOUDHURY 09/08/2023 05:24:00 Final Observation Date Value Abnormality Reference (Units ) Status Prealbumin 09/08/2023 05:24:00 18 18-45 (mg /dL) Final Performing Location LABORATORY [facility] - [address] [place] [address]
--- OUTSIDE RECORDS SUMMARY | 2023-10-17 06:39 | External Medical Summary ---
Author Name Unknown Address Unknown Organization K1F:LABORATORY [facility] - [address] [place] [address] Laboratory Report Ordering Provider Test Date Status DALE BRASWELL 09/07/2023 04:33:00 Final Observation Date Value Abnormality Reference (Units ) Status BUN 09/07/2023 04:33:00 5 Below low normal 6-20 (mg/dL) Final Creatinine 09/07/2023 04:33:00 0.3 Below low normal 0.5-1.0 (mg/dL) Final Glomerular filtration rate/1.73 sq M.predicted [Volume Rate/Area] in Serum, Plasma or Blood by Creatinine-based formula (CKD-EPI) 09/07/2023 04:33:00 >90 >=60 (mL/min) Final eGFR is calculated based on the CKD-EPI 2020 equation SODIUM 09/07/2023 04:33:00 139 135-146 (m mol/L) Final Potassium 09/07/2023 04:33:00 3.6 3.5-5.1 (m mol/L) Final Cl 09/07/2023 04:33:00 106 98-107 (mm ol/L) Final CO2 09/07/2023 04:33:00 21 Below low normal 22- 32 (mmol/L) Final Anion gap 09/07/2023 04:33:00 12 7-15 (mmol /L) Final Glucose 09/07/2023 04:33:00 100 70-120 (mg /dL) Final Calcium 09/07/2023 04:33:00 8.4 8.4-10.2 ( mg/dL) Final Performing Location LABORATORY [facility] - [address] [place] [address]
--- OUTSIDE RECORDS SUMMARY | 2023-10-17 06:39 | External Medical Summary ---
Author Name Unknown Address Unknown Organization K1F:LABORATORY [facility] - [address] [place] [address] Laboratory Report Ordering Provider Test Date Status DALE BRASWELL 09/09/2023 06:18:00 Final Observation Date Value Abnormality Reference (Units ) Status WBC, Total 09/09/2023 06:18:00 15.47 Above high normal 4.00-10.80 (K/uL) Final RBC 09/09/2023 06:18:00 5.27 3.85-5.15 (M/uL) Final Hemoglobin 09/09/2023 06:18:00 14.9 12.0-15.3 (g/dL) Final HCT 09/09/2023 06:18:00 46.1 Above high normal 36.0-45.2 (%) Final MCV 09/09/2023 06:18:00 87.5 81.5-97.5 (fL) Final MCH 09/09/2023 06:18:00 28.3 27.0-34.0 (pg) Final MCHC 09/09/2023 06:18:00 32.3 32.0-36.0 (g/dL) Final RDW 09/09/2023 06:18:00 16.7 11.5-15.5 (%) Final Platelets 09/09/2023 06:18:00 1158 Above upper panic limits 140-400 (K/uL) Final MPV 09/09/2023 06:18:00 8.8 6.6-11.1 (fL) Final Nucleated erythrocytes/100 leukocytes [Ratio] in Blood by Automated count 09/09/2023 06:18:00 0 <=0 (/100 WBCs) Final Performing Location LABORATORY [facility] - [address] [place] [address]
--- OUTSIDE RECORDS SUMMARY | 2023-10-17 06:39 | External Medical Summary ---
Author Name Unknown Address Unknown Organization K1F:LABORATORY [facility] - [address] [place] [address] Laboratory Report Ordering Provider Test Date Status MIRACLE PEPPER 09/09/2023 06:22:51 Final Observation Date Value Abnormality Reference (Units) Status Source 09/09/2023 06:22:51 Semi-formed Final Clostridioides difficile toxin and [id number] strain DNA panel - Stool by RICK with probe detection 09/09/2023 06:22:51 Negative. No C. difficile toxin B gene DNA detected by PCR (Amplified Probe). Negative Final Performing Location LABORATORY [facility] - [address] [place] [address]
--- OUTSIDE RECORDS SUMMARY | 2023-10-17 06:39 | External Medical Summary ---
Author Name Unknown Address Unknown Organization K1F:LABORATORY [facility] - [address] [place] [address] Laboratory Report Ordering Provider Test Date Status DALE BRASWELL 09/08/2023 05:24:00 Final Observation Date Value Abnormality Reference (Units ) Status Magnesium 09/08/2023 05:24:00 2.3 1.5-2.6 (m g/dL) Final Performing Location LABORATORY [facility] - [address] [place] [address]
--- OUTSIDE RECORDS SUMMARY | 2023-10-17 06:39 | External Medical Summary ---
Author Name Unknown Address Unknown Organization K1F:LABORATORY [facility] - [address] [place] [address] Laboratory Report Ordering Provider Test Date Status DALE BRASWELL 09/09/2023 06:18:00 Final Observation Date Value Abnormality Reference (Units ) Status BUN 09/09/2023 06:18:00 9 6-20 (mg/dL) Final Creatinine 09/09/2023 06:18:00 0.4 Below low normal 0.5-1.0 (mg/dL) Final Glomerular filtration rate/1.73 sq M.predicted [Volume Rate/Area] in Serum, Plasma or Blood by Creatinine-based formula (CKD-EPI) 09/09/2023 06:18:00 >90 >=60 (mL/min) Final eGFR is calculated based on the CKD-EPI 2020 equation SODIUM 09/09/2023 06:18:00 139 135-146 (m mol/L) Final Potassium 09/09/2023 06:18:00 3.9 3.5-5.1 (m mol/L) Final Cl 09/09/2023 06:18:00 102 98-107 (mm ol/L) Final CO2 09/09/2023 06:18:00 25 22-32 (mmo l/L) Final Anion gap 09/09/2023 06:18:00 12 7-15 (mmol /L) Final Glucose 09/09/2023 06:18:00 165 Above high normal 70 -120 (mg/dL) Final Calcium 09/09/2023 06:18:00 9.8 8.4-10.2 ( mg/dL) Final Performing Location LABORATORY [facility] - [address] [place] [address]
--- OUTSIDE RECORDS SUMMARY | 2023-10-17 06:39 | External Medical Summary ---
Author Name Unknown Address Unknown Organization K1F:LABORATORY [facility] - [address] [place], [place] [address] [address] Laboratory Report Ordering Provider Test Date Status DALE BRASWELL 09/08/2023 05:24:00 Final Observation Date Value Abnormality Reference (Units ) Status WBC, Total 09/08/2023 05:24:00 18.17 Above high normal 4.00-10.80 (K/uL) Final RBC 09/08/2023 05:24:00 4.47 3.85-5.15 (M/uL) Final Hemoglobin 09/08/2023 05:24:00 12.0 12.0-15.3 (g/dL) Final HCT 09/08/2023 05:24:00 38.8 36.0-45.2 (%) Final MCV 09/08/2023 05:24:00 86.8 81.5-97.5 (fL) Final MCH 09/08/2023 05:24:00 26.8 27.0-34.0 (pg) Final MCHC 09/08/2023 05:24:00 30.9 32.0-36.0 (g/dL) Final RDW 09/08/2023 05:24:00 16.5 11.5-15.5 (%) Final Platelets 09/08/2023 05:24:00 978 Above high normal 140-400 (K/uL) Final MPV 09/08/2023 05:24:00 9.3 6.6-11.1 (fL) Final Nucleated erythrocytes/100 leukocytes [Ratio] in Blood by Automated count 09/08/2023 05:24:00 0 <=0 (/100 WBCs) Final Performing Location LABORATORY [facility] - [address] [place] [address]
--- OUTSIDE RECORDS SUMMARY | 2023-10-17 06:39 | External Medical Summary ---
Author Name Unknown Address Unknown Organization K01:LABORATORY [address] [address] Laboratory Report Ordering Provider Test Date Status MIRACLE PEPPER 09/09/2023 06:22:51 Final Observation Date Value Abnormality Reference (Units ) Status Campylobacter sp DNA.diarrheagenic [Presence] in Stool by RICK with probe detection 09/09/2023 06:22:51 Negative Negative Final Salmonella sp rpoD gene [Presence] in Stool by RICK with probe detection 09/09/2023 06:22:51 Negative Negative Final Shigella species+EIEC invasion plasmid antigen H ipaH gene [Presence] in Stool by RICK with probe detection 09/09/2023 06:22:51 Negative Negative Final Vibrio sp DNA [Identifier] in Specimen by RICK with probe detection 09/09/2023 06:22:51 Negative Negative Final Yersinia enterocolitica recN gene [Presence] in Stool by RICK with probe detection 09/09/2023 06:22:51 Negative Negative Final Escherichia coli Stx1 toxin stx1 gene [Presence] in Stool by RICK with probe detection 09/09/2023 06:22:51 Negative Negative Final Escherichia coli Stx2 toxin stx2 gene [Presence] in Stool by RICK with probe detection 09/09/2023 06:22:51 Negative Negative Final Norovirus genogroups I and II RNA panel - Stool by RICK with probe detection 09/09/2023 06:22:51 Negative Negative Final Rotavirus A RNA [Presence] in Stool by RICK with probe detection 09/09/2023 06:22:51 Negative Negative Final Performing Location LABORATORY [address] [facility] [address]
--- OUTSIDE RECORDS SUMMARY | 2023-10-17 06:39 | External Medical Summary ---
Author Name Unknown Address Unknown Organization K01:[facility]ORY [facility] [place] [address] [place] [address] Laboratory Report Ordering Provider Test Date Status MIRACLE PEPPER 09/09/2023 06:22:51 Final Observation Date Value Abnormality Reference (Units) Status Bacteria identified in Specimen by Culture 09/09/2023 06:22:51 No Aeromonas species or Plesiomonas species isolated. Final Test: Gastrointestinal Patho gen Panel Culture
Specimen Source: Stool
Specimen Type: Stool
Specimen Date: 09/09/2023 6:22 AM
Result Date: 09/11/2023 10:48 AM
Result Status: Final result
Resulting Lab: LABORATORY [facility]
[address]
[place] [address]

CULTURE

No Aeromonas species or Plesiomonas species isolated.

null Performing Location LABORATORY [facility] - [address] [place] [address]
--- OUTSIDE RECORDS SUMMARY | 2023-10-17 06:39 | External Medical Summary ---
Author Name Unknown Address Unknown Organization K1F:LABORATORY [facility] - [address] [place] [address] Laboratory Report Ordering Provider Test Date Status DALE BRASWELL 09/09/2023 06:18:00 Final Observation Date Value Abnormality Reference (Units ) Status Phosphate 09/09/2023 06:18:00 3.8 2.5-4.8 (m g/dL) Final Performing Location LABORATORY [facility] - [address] [place] [address]
--- OUTSIDE RECORDS SUMMARY | 2023-10-17 06:39 | External Medical Summary ---
Author Name Unknown Address Unknown Organization K1F:LABORATORY [facility] - [address] [place] [address] Laboratory Report Ordering Provider Test Date Status DALE BRASWELL 09/08/2023 05:24:00 Final Observation Date Value Abnormality Reference (Units ) Status BUN 09/08/2023 05:24:00 5 Below low normal 6-20 (mg/dL) Final Creatinine 09/08/2023 05:24:00 0.4 Below low normal 0.5-1.0 (mg/dL) Final Glomerular filtration rate/1.73 sq M.predicted [Volume Rate/Area] in Serum, Plasma or Blood by Creatinine-based formula (CKD-EPI) 09/08/2023 05:24:00 >90 >=60 (mL/min) Final eGFR is calculated based on the CKD-EPI 2020 equation SODIUM 09/08/2023 05:24:00 138 135-146 (m mol/L) Final Potassium 09/08/2023 05:24:00 4.1 3.5-5.1 (m mol/L) Final Cl 09/08/2023 05:24:00 104 98-107 (mm ol/L) Final CO2 09/08/2023 05:24:00 24 22-32 (mmo l/L) Final Anion gap 09/08/2023 05:24:00 10 7-15 (mmol /L) Final Glucose 09/08/2023 05:24:00 92 70-120 (mg /dL) Final Calcium 09/08/2023 05:24:00 8.7 8.4-10.2 ( mg/dL) Final Performing Location LABORATORY [facility] - [address] [place] [address]
--- OUTSIDE RECORDS SUMMARY | 2023-10-17 06:39 | External Medical Summary ---
Author Name Unknown Address Unknown Organization K01:LABORATORY [address] [facility] [address] Laboratory Report Ordering Provider Test Date Status JUANITO CHOUDHURY 09/08/2023 14:39:00 Final Observation Date Value Abnormality Reference (Units) Status Streptococcus pyogenes DNA [Presence] in Throat by RICK with probe detection 09/08/2023 14:39:00 Negative. No Group A Streptococcus detected by PCR (amplified probe). Negative Final This test was developed and its performance characteristics determined by [facility]. It has not been cleared or approved by the FDA. The laboratory is regulated under CLIA as qualified to perform high- complexity testing. This test is used for clinical purposes. It should not be regarded as investigational or for research. Performing Location LABORATORY [place] [address] [address] [facility] [address]
--- OUTSIDE RECORDS SUMMARY | 2023-10-17 06:39 | External Medical Summary ---
Author Name Unknown Address Unknown Organization K01:LABORATORY [facility] - [address] [place] [address] Laboratory Report Ordering Provider Test Date Status JUANITO CHOUDHURY 09/08/2023 05:24:00 Final Observation Date Value Abnormality Reference (Units ) Status GGT 09/08/2023 05:24:00 43 Above high normal <= 40 (U/L) Final Performing Location LABORATORY [facility] - [address] [place] [address]
--- OUTSIDE RECORDS SUMMARY | 2023-10-17 06:39 | External Medical Summary ---
Author Name Unknown Address Unknown Organization K1F:LABORATORY [facility] - [address] [place] [address] Laboratory Report Ordering Provider Test Date Status MARLONSINK 09/08/2023 10:03:20 Final Observation Date Value Abnormality Reference (Units ) Status Screen, Urine 09/08/2023 10:03:20 Negative Negative Final Performing Location LABORATORY [facility] - [address] [place] [address]
--- OUTSIDE RECORDS SUMMARY | 2023-10-17 06:39 | External Medical Summary ---
Author Name Unknown Address Unknown Organization K1F:LABORATORY [facility] - [address] [place] [address] Laboratory Report Ordering Provider Test Date Status JUANITO CHOUDHURY 09/08/2023 14:39:00 Final Observation Date Value Abnormality Reference (Units ) Status Streptococcus pyogenes Ag [Presence] in Throat 09/08/2023 14:39:00 Negative Negative Final Performing Location LABORATORY [facility] - [address] [place] [address]
--- OUTSIDE RECORDS SUMMARY | 2023-10-17 06:40 | External Medical Summary ---
Author Name Unknown Address Unknown Organization K01:LABORATORY [facility] [place] - [address] [place] [address] Laboratory Report Ordering Provider Test Date Status ALANNAH ALVARADO 09/06/2023 14:41:00 Final Observation Date Value Abnormality Reference (Units ) Status Borrelia burgdorferi IgG and IgM [Interpretation] in Serum by Immunoassay 09/06/2023 14:41:00 Negative Negative Final Performing Location LABORATORY [facility] - [address] [facility] [address]
--- OUTSIDE RECORDS SUMMARY | 2023-10-17 06:40 | External Medical Summary ---
Author Name Unknown Address Unknown Organization K1F:LABORATORY [facility] - [address] [place] [address] Laboratory Report Ordering Provider Test Date Status DALE BRASWELL 09/07/2023 04:32:00 Final Observation Date Value Abnormality Reference (Units ) Status WBC, Total 09/07/2023 04:32:00 15.44 Above high normal 4.00-10.80 (K/uL) Final RBC 09/07/2023 04:32:00 4.23 3.85-5.15 (M/uL) Final Hemoglobin 09/07/2023 04:32:00 11.9 Below low normal 12.0-15.3 (g/dL) Final HCT 09/07/2023 04:32:00 36.4 36.0-45.2 (%) Final MCV 09/07/2023 04:32:00 86.1 81.5-97.5 (fL) Final MCH 09/07/2023 04:32:00 28.1 27.0-34.0 (pg) Final MCHC 09/07/2023 04:32:00 32.7 32.0-36.0 (g/dL) Final RDW 09/07/2023 04:32:00 16.5 11.5-15.5 (%) Final Platelets 09/07/2023 04:32:00 924 Above high normal 140-400 (K/uL) Final MPV 09/07/2023 04:32:00 8.9 6.6-11.1 (fL) Final Nucleated erythrocytes/100 leukocytes [Ratio] in Blood by Automated count 09/07/2023 04:32:00 0 <=0 (/100 WBCs) Final Performing Location LABORATORY [facility] - [address] [place] [address]
--- OUTSIDE RECORDS SUMMARY | 2023-10-17 06:40 | External Medical Summary ---
Author Name Unknown Address Unknown Organization K1F:LABORATORY [facility] [address] [facility] [place] [address] Laboratory Report Ordering Provider Test Date Status ALANNAH ALVARADO 09/06/2023 14:36:00 Final Observation Date Value Abnormality Reference (Units ) Status Body temperature 09/06/2023 14:36:00 37.0 (C) Final pH of Venous blood 09/06/2023 14:36:00 7.390 7.320-7.430 (units) Final Carbon dioxide [Partial pressure] in Venous blood 09/06/2023 14:36:00 43.4 40.0-60.0 (mmHg) Final Oxygen [Partial pressure] in Venous blood 09/06/2023 14:36:00 31.7 25.0-50.0 (mmHg) Final Base excess, Capillary 09/06/2023 14:36:00 1.0 -2.0-2.0 (mmol/L) Final Hemoglobin [Mass/volume] in Blood by Oximetry 09/06/2023 14:36:00 13.9 12.0-15.3 (g/dL) Final Oxyhemoglobin, Venous (FO2HB) 09/06/2023 14:36:00 48.7 40.0-85.0 (% total Hgb) Final Carboxyhemoglobin 09/06/2023 14:36:00 0.8 <=1.5 (% total Hgb) Final Smokers: 0-9.0 % Methemoglobin 09/06/2023 14:36:00 0.8 <=1.5 (% total Hgb) Final Deoxyhemoglobin/Hemoglobin.t otal in Venous blood 09/06/2023 14:36:00 49.7 (% total Hgb) Criss l Oxygen content in Venous blood 09/06/2023 14:36:00 9.5 7.0-18.0 (%vol) Final Bicarbonate, Venous, POC (i-STAT) 09/06/2023 14:36:00 25.7 23.0-31.0 (mmol/L) Fi nal Performing Location LABORATORY [facility] - [address] [facility] [address] [place] [address]
--- OUTSIDE RECORDS SUMMARY | 2023-10-17 06:40 | External Medical Summary ---
Author Name Unknown Address Unknown Organization K1F:LABORATORY [facility] - [address] [place] [address] Laboratory Report Ordering Provider Test Date Status JUANITO CHOUDHURY 09/06/2023 14:36:00 Final Observation Date Value Abnormality Reference (Units ) Status CRP, low-sensitivity 09/06/2023 14:36:00 23 Above high normal <=5 (mg/L) Final Performing Location LABORATORY [facility] - [address] [place] [address]
--- OUTSIDE RECORDS SUMMARY | 2023-10-17 06:40 | External Medical Summary ---
Author Name Unknown Address Unknown Organization K1F:LABORATORY [facility] - [address] [facility] [place] [address] Laboratory Report Ordering Provider Test Date Status ALANNAH ALVARADO 09/06/2023 14:55:18 Final ADMITTED patient Observation Date Value Abnormality Reference (Units ) Status Adenovirus DNA [Presence] in Nasopharynx by RICK with non-probe detection 09/06/2023 14:55:18 Negative Negative Final Human coronavirus 229E RNA [Presence] in Nasopharynx by RICK with non-probe detection 09/06/2023 14:55:18 Negative Negative Final Human coronavirus HKU1 RNA [Presence] in Nasopharynx by RICK with non-probe detection 09/06/2023 14:55:18 Negative Negative Final Human coronavirus NL63 RNA [Presence] in Nasopharynx by RICK with non-probe detection 09/06/2023 14:55:18 Negative Negative Final Human coronavirus OC43 RNA [Presence] in Nasopharynx by RICK with non-probe detection 09/06/2023 14:55:18 Negative Negative Final SARS-CoV-2 (COVID-19) RNA [Presence] in Nasopharynx by RICK with non-probe detection 09/06/2023 14:55:18 Negative Negative Final Human metapneumovirus RNA [Presence] in Nasopharynx by RICK with non-probe detection 09/06/2023 14:55:18 Negative Negative Final Rhinovirus+Enterovirus RNA [Presence] in Nasopharynx by RICK with non-probe detection 09/06/2023 14:55:18 Negative Negative Final Influenza virus A RNA [Presence] in Nasopharynx by RICK with non-probe detection 09/06/2023 14:55:18 Negative Negative Final Influenza virus B RNA [Presence] in Nasopharynx by RICK with non-probe detection 09/06/2023 14:55:18 Negative Negative Final Parainfluenza virus 1 RNA [Presence] in Nasopharynx by RICK with non-probe detection 09/06/2023 14:55:18 Negative Negative Final Parainfluenza virus 2 RNA [Presence] in Nasopharynx by RICK with non-probe detection 09/06/2023 14:55:18 Negative Negative Final Parainfluenza virus 3 RNA [Presence] in Nasopharynx by RICK with non-probe detection 09/06/2023 14:55:18 Negative Negative Final Parainfluenza virus 4 RNA [Presence] in Nasopharynx by RICK with non-probe detection 09/06/2023 14:55:18 Negative Negative Final Respiratory syncytial virus RNA [Presence] in Nasopharynx by RICK with non-probe detection 09/06/2023 14:55:18 Negative Negative Final Bordetella pertussis.pertussis toxin promoter region [Presence] in Nasopharynx by RICK with non-probe detection 09/06/2023 14:55:18 Negative Negative Final Chlamydophila pneumoniae DNA [Presence] in Nasopharynx by RICK with non-probe detection 09/06/2023 14:55:18 Negative Negative Final Mycoplasma pneumoniae DNA [Presence] in Nasopharynx by RICK with non-probe detection 09/06/2023 14:55:18 Negative Negative Final Bordetella parapertussis [id number] DNA [Presence] in Nasopharynx by RICK with non-probe detection 09/06/2023 14:55:18 Negative Negative Final
The primers that detect Rhinovirus may cross react with some Enterorviruses. The validation of bronchial specimens, tracheal aspirates, and throats for this assay was developed and performance characteristics determined by [employer]. The validation of alternate specimen types has not been cleared or approved by the U.S. Food and Drug Administration (FDA). It has been determined that such clearance or approval is not necessary. [address] [place] [address]
--- OUTSIDE RECORDS SUMMARY | 2023-10-17 06:40 | External Medical Summary ---
Author Name Unknown Address Unknown Organization K1F:LABORATORY [facility] - [address] [place], [place] [address] [address] Laboratory Report Ordering Provider Test Date Status ALANNAH ALVARADO 09/06/2023 14:41:00 Final Observation Date Value Abnormality Reference (Units ) Status Bacteria identified in Specimen by Culture 09/06/2023 14:41:00 No growth Final Test: Culture, Blood (Site 2)
Specimen Source: Blood, Venous
Specimen Type: Blood
Specimen Date: 09/06/2023 2:41 PM
Result Date: 09/11/2023 3:01 PM
Result Status: Final result
Resulting Lab: LABORATORY [facility]
[address] [place] [address]
[place] [address]

CULTURE

No growth

null Performing Location LABORATORY [facility] - [address] [place] [address] Ave. [place] [address]
--- OUTSIDE RECORDS SUMMARY | 2023-10-17 06:40 | External Medical Summary ---
Author Name Unknown Address Unknown Organization K1F:LABORATORY [facility] - [address] [place] [address] Laboratory Report Ordering Provider Test Date Status ALANNAH ALVARADO 09/06/2023 14:36:00 Final Observation Date Value Abnormality Reference (Units ) Status Albumin 09/06/2023 14:36:00 3.3 Below low normal 3.8-5.0 (g/dL) Final AST (Aspartate aminotransferase) 09/06/2023 14:36:00 33 10-35 (U/L) Final Alk Phos 09/06/2023 14:36:00 142 Above high normal 35-130 (U/L) Final ALT (Alanine aminotransferase) 09/06/2023 14:36:00 27 10-35 (U/L) Final Bilirubin, Total 09/06/2023 14:36:00 0.2 <=1.2 (mg/dL) Final Bilirubin, Direct 09/06/2023 14:36:00 <0.2 0.0-0.3 (mg/dL) Final Protein 09/06/2023 14:36:00 6.8 6.0-8.3 (g/dL) Final Performing Location LABORATORY [facility] - [address] [place] [address]
--- OUTSIDE RECORDS SUMMARY | 2023-10-17 06:40 | External Medical Summary ---
Author Name Unknown Address Unknown Organization K1F:LABORATORY [facility] - [address] [place] [address] Laboratory Report Ordering Provider Test Date Status ALANNAH ALVARADO 09/06/2023 14:36:00 Final Warfarin Therapy
INR: 2 .0-3.0 conventional anticoagulation
INR: 2.5- 3.5 high intensity anticoagulation Observation Date Value Abnormality Reference (Units ) Status PT 09/06/2023 14:36:00 13.7 11.6-15.2 (seconds) Final INR 09/06/2023 14:36:00 1.1 0.8-1.2 Final Performing Location LABORATORY [facility] - [address] [place] [address]
--- OUTSIDE RECORDS SUMMARY | 2023-10-17 06:40 | External Medical Summary ---
Author Name Unknown Address Unknown Organization K01:LABORATORY [facility] - [address] [place] [address] Laboratory Report Ordering Provider Test Date Status SUSAN CARLSON 09/07/2023 04:33:00 Final Observation Date Value Abnormality Reference (Units ) Status Iron 09/07/2023 04:33:00 18 Below low normal 33-151 (ug/dL) Final Iron-binding capacity 09/07/2023 04:33:00 248 Below low normal 250-425 (ug/dL) Final Transferrin Sat % 09/07/2023 04:33:00 7 Below low normal 15-55 (%) Final Performing Location LABORATORY [facility] - [address] [place] [address]
--- OUTSIDE RECORDS SUMMARY | 2023-10-17 06:40 | External Medical Summary ---
Author Name Unknown Address Unknown Organization K1F:LABORATORY [facility] - [address] [facility] [place] [address] Laboratory Report Ordering Provider Test Date Status ALANNAH ALVARADO 09/06/2023 19:44:00 Final Observation Date Value Abnormality Reference (Units ) Status Color of Urine by Auto 09/06/2023 19:44:00 Yellow Light Yellow, Yellow, Dark Yellow Final Clarity, Urine 09/06/2023 19:44:00 Clear Clear Final Glucose [Mass/volume] in Urine by Automated test strip 09/06/2023 19:44:00 Negative Negative (mg/dL) Final Bilirubin.total [Presence] in Urine by Automated test strip 09/06/2023 19:44:00 Negative Negative Final Ketones [Mass/volume] in Urine by Automated test strip 09/06/2023 19:44:00 Negative Negative (mg/dL) Final Specific gravity, Urine 09/06/2023 19:44:00 1.025 1.003-1.030 Final Hemoglobin [Presence] in Urine by Automated test strip 09/06/2023 19:44:00 Negative Negative Final pH, Urine 09/06/2023 19:44:00 6.5 5.0-7.5 (Units) Final Protein [Mass/volume] in Urine by Automated test strip 09/06/2023 19:44:00 Negative Negative (mg/dL) Final Urobilinogen [Mass/volume] in Urine by Automated test strip 09/06/2023 19:44:00 0.2 0.2, 1.0 (mg/dL) Final Nitrite [Presence] in Urine by Automated test strip 09/06/2023 19:44:00 Negative Negative Final Leukocyte esterase [Presence] in Urine by Automated test strip 09/06/2023 19:44:00 Trace Abnormal Negative Final RBC, Urine 09/06/2023 19:44:00 0-2 0-2 (/HPF) Final WBC, Urine 09/06/2023 19:44:00 3-5 Abnormal 0-2 (/HPF) Final Bacteria [#/area] in Urine sediment by Microscopy high power field 09/06/2023 19:44:00 26-50 Abnormal 0-25 (/HPF) Final CULTURE, URINE - [facility] 09/06/2023 19:44:00 Final Quantitative urine culture t o be performed Performing Location LABORATORY [facility] - [facility] [place] [address]
--- OUTSIDE RECORDS SUMMARY | 2023-10-17 06:40 | External Medical Summary ---
Author Name Unknown Address Unknown Organization K01:LABORATORY [facility] - [address] [place] [address] Laboratory Report Ordering Provider Test Date Status ALANNAH ALVARADO 09/06/2023 19:44:00 Final Observation Date Value Abnormality Reference (Units) Status Bacteria identified in Specimen by Culture 09/06/2023 19:44:00 No significant growth Final Test: Culture, Urine, Quanti tative
Specimen Source: Urine, Clean Catch
Specimen Type: Urine
Specimen Date: 09/06/2023 7:44 PM
Result Date: 09/08/2023 7:30 AM
Result Status: Final result
Resulting Lab: LABORATORY [facility]
[address]
[place] [address]

CULTURE

No significant growth

null Performing Location LABORATORY [facility] - [address] [place] [address]
--- OUTSIDE RECORDS SUMMARY | 2023-10-17 06:40 | External Medical Summary ---
Author Name Unknown Address Unknown Organization K1F:LABORATORY [facility] - [address] [place] [address] Laboratory Report Ordering Provider Test Date Status ALANNAH ALVARADO 09/06/2023 14:41:00 Final Observation Date Value Abnormality Reference (Units ) Status Heterophile Ab [Presence] in Blood by Immunoassay 09/06/2023 14:41:00 Negative Negative Final Performing Location LABORATORY [facility] - [address] [place] [address]
--- OUTSIDE RECORDS SUMMARY | 2023-10-17 06:40 | External Medical Summary ---
Author Name Unknown Address Unknown Organization K1F:LABORATORY [facility] - [facility] [place] [address] Laboratory Report Ordering Provider Test Date Status ALANNAH ALVARADO 09/06/2023 14:36:00 Final Observation Date Value Abnormality Reference (Units ) Status WBC, Total 09/06/2023 14:36:00 20.03 Above high normal 4.00-10.80 (K/uL) Final RBC 09/06/2023 14:36:00 4.84 3.85-5.15 (M/uL) Final Hemoglobin 09/06/2023 14:36:00 13.7 12.0-15.3 (g/dL) Final HCT 09/06/2023 14:36:00 42.2 36.0-45.2 (%) Final MCV 09/06/2023 14:36:00 87.2 81.5-97.5 (fL) Final MCH 09/06/2023 14:36:00 28.3 27.0-34.0 (pg) Final MCHC 09/06/2023 14:36:00 32.5 32.0-36.0 (g/dL) Final RDW 09/06/2023 14:36:00 16.8 11.5-15.5 (%) Final Platelets 09/06/2023 14:36:00 1061 Above upper panic limits 140-400 (K/uL) Final MPV 09/06/2023 14:36:00 8.8 6.6-11.1 (fL) Final Nucleated erythrocytes/100 leukocytes [Ratio] in Blood by Automated count 09/06/2023 14:36:00 0 <=0 (/100 WBCs) Final Performing Location LABORATORY [facility] - [address] [place] [address]
--- OUTSIDE RECORDS SUMMARY | 2023-10-17 06:40 | External Medical Summary ---
Author Name Unknown Address Unknown Organization K1F:LABORATORY [facility] - [address] [place] [address] Laboratory Report Ordering Provider Test Date Status DALE BRASWELL 09/07/2023 04:33:00 Final Observation Date Value Abnormality Reference (Units ) Status Phosphate 09/07/2023 04:33:00 3.5 2.5-4.8 (m g/dL) Final Performing Location LABORATORY [facility] - [address] [place] [address]
--- OUTSIDE RECORDS SUMMARY | 2023-10-17 06:40 | External Medical Summary ---
Author Name Unknown Address Unknown Organization K1F:LABORATORY [facility] - [address] [place] [address] Laboratory Report Ordering Provider Test Date Status DALE BRASWELL 09/07/2023 04:33:00 Final Observation Date Value Abnormality Reference (Units ) Status Magnesium 09/07/2023 04:33:00 2.1 1.5-2.6 (m g/dL) Final Performing Location LABORATORY [facility] - [address] [place] [address]
--- OUTSIDE RECORDS SUMMARY | 2023-10-17 06:40 | External Medical Summary ---
Author Name Unknown Address Unknown Organization K1F:LABORATORY [facility] - [address] [place], [place] [address] [address] Laboratory Report Ordering Provider Test Date Status TONIE ALVARADODEMI 09/06/2023 14:36:00 Final Observation Date Value Abnormality Reference (Units ) Status Bacteria identified in Specimen by Culture 09/06/2023 14:36:00 No growth Final Test: Culture, Blood
Sp ecimen Source: Blood, Venous
Specimen Type: Blood
Specimen Date: 09/06/2023 2:36 PM
Result Date: 09/11/2023 3:01 PM
Result Status: Final result
Resulting Lab: LABORATORY [facility]
[address] [place] [address]
[place] [address]

CULTURE

No growth

null Performing Location LABORATORY [facility] - [address] [place] [address] [address] [place] [address]
--- OUTSIDE RECORDS SUMMARY | 2023-10-17 06:40 | External Medical Summary ---
Author Name Unknown Address Unknown Organization K1F:LABORATORY [facility] - [address] [place] [address] Laboratory Report Ordering Provider Test Date Status ALANNAH ALVARADO 09/06/2023 14:36:00 Final Observation Date Value Abnormality Reference (Units ) Status Troponin T 09/06/2023 14:36:00 <6 <=14 (ng/ L) Final Performing Location LABORATORY [facility] - [address] [place] [address]
--- OUTSIDE RECORDS SUMMARY | 2023-10-17 06:40 | External Medical Summary ---
Author Name Unknown Address Unknown Organization K1F:LABORATORY [facility] - [address] [place] [address] Laboratory Report Ordering Provider Test Date Status ALANNAH ALVARADO 09/06/2023 14:36:00 Final Observation Date Value Abnormality Reference (Units ) Status Lactic Acid 09/06/2023 14:36:00 1.7 0.4-2.0 (mmol/L) Final Performing Location LABORATORY [facility] - [address] [place] [address]
--- OUTSIDE RECORDS SUMMARY | 2023-10-17 06:41 | External Medical Summary ---
Author Name Unknown Address Unknown Organization K1F:LABORATORY [facility] - [address] [place] [address] Laboratory Report Ordering Provider Test Date Status MICHAELLEDALE MORALES 09/06/2023 14:36:00 Final Observation Date Value Abnormality Reference (Units ) Status Phosphate 09/06/2023 14:36:00 3.8 2.5-4.8 (m g/dL) Final Performing Location LABORATORY [facility] - [address] [place] [address]
--- OUTSIDE RECORDS SUMMARY | 2023-10-17 06:41 | External Medical Summary ---
Author Name Unknown Address Unknown Organization K1F:LABORATORY [facility] - [address] [place] [address] Laboratory Report Ordering Provider Test Date Status ALANNAH ALVARADO 09/06/2023 14:36:00 Final Observation Date Value Abnormality Reference (Units ) Status BUN 09/06/2023 14:36:00 6 6-20 (mg/dL) Final Creatinine 09/06/2023 14:36:00 0.4 Below low normal 0.5-1.0 (mg/dL) Final Glomerular filtration rate/1.73 sq M.predicted [Volume Rate/Area] in Serum, Plasma or Blood by Creatinine-based formula (CKD-EPI) 09/06/2023 14:36:00 >90 >=60 (mL/min) Final eGFR is calculated based on the CKD-EPI 2020 equation SODIUM 09/06/2023 14:36:00 138 135-146 (m mol/L) Final Potassium 09/06/2023 14:36:00 3.5 3.5-5.1 (m mol/L) Final Cl 09/06/2023 14:36:00 102 98-107 (mm ol/L) Final CO2 09/06/2023 14:36:00 21 Below low normal 22- 32 (mmol/L) Final Anion gap 09/06/2023 14:36:00 15 7-15 (mmol /L) Final Glucose 09/06/2023 14:36:00 87 70-120 (mg /dL) Final Calcium 09/06/2023 14:36:00 9.1 8.4-10.2 ( mg/dL) Final Performing Location LABORATORY [facility] - [address] [place] [address]
--- OUTSIDE RECORDS SUMMARY | 2023-10-17 06:41 | External Medical Summary | Summary of Care ---
Author Name Unknown Organization [facility] Address [address] [place] [address] Phone [phone] Care Team Providers Care Manual Control Auger Press Operator Name Role Phone Marilyn Abarca Jay CASTANEDA Primary Care Provider [phone] Reason for Visit * Reason Onset Date Comments Appointment 08/26/2023 Encounter Details Date Type Department Care Team (Late st Contact Info) Description 08/26/2023 Telephone Access Center, [place] [address] [facility] *DO NOT REMOVE THIS DEPARTMENT* [place] [address] Rowdy Merchant MD [address] [place] [address] Appointment Allergies Active Allergy Reactions Criticality Noted Date Comments Ferric Derisomaltose 12/30/2022 SOB and lost consciousness documented as of this encounter (statuses as of 08/31/2023) Medications Medication Sig Dispensed Refills Start Date End Date Status Sulfamethoxazole-Tri methoprim 200-40 MG/5ML Oral Suspension (Bactrim) 0 12/05/2022 Acti ve Furosemide 5 MG OR TABS Take by mouth daily. 0 Active Amoxicillin-Pot Clavulanate 875-125 MG Oral Tablet (Augmentin) Take 1 Tablet by mouth in the morning and 1 Tablet before bedtime. Do all this for 10 days. 20 Tablet 0 08/26/2023 09/05/2023 Active Midodrine HCl 5 MG Oral Tablet (Proamatine) Take 1 Tablet by mouth in the morning and 1 Tablet at noon and 1 Tablet before bedtime. 90 Tablet 0 08/26/2023 09/25/2023 Active Roller Walker Use as directed 1 Each 0 08/26/2023 Active Amoxicillin-Pot Clavulanate 875-125 MG Oral Tablet (Augmentin) Take 1 Tablet by mouth in the morning and 1 Tablet before bedtime. Do all this for 10 days. 20 Tablet 0 08/26/2023 09/05/2023 Active Midodrine HCl 5 MG Oral Tablet (Proamatine) Take 1 Tablet by mouth in the morning and 1 Tablet at noon and 1 Tablet in the evening. 90 Tablet 0 08/26/2023 09/25/2023 Active documented as of this encounter (statuses as of 08/31/2023) Active Problems Problem Noted Date Diagnosed Date Malnutrition of moderate degree 08/19/2023 Intermittent complete atrioventricular block Lymphedema 08/18/2023 Venous stasis ulcers of both lower extremities 0 08/18/2023 Generalized weakness 08/18/2023 Thrombocytosis 08/18/2023 Celiac disease 08/18/2023 Other iron deficiency anemias 12/20/2022 Anemia 12/19/2022 documented as of this encounter (statuses as of 08/31/2023) Resolved Problems Problem Noted Date Diagnosed Date Resolved Date Anemia due to chronic blood loss 08/21/2023 08/26/2023 Sore throat 08/18/2023 08/26/2023 documented as of this encounter (statuses as of 08/31/2023) Social History Tobacco Use Types Packs/Day Years [...] deaf or do you have serious difficulty hearing? No 08/18/2023 Are you blind or do you have serious difficulty seeing, even when wearing glasses? No 08/18/2023 Do you have serious difficul ty walking or climbing stairs? (5 years old or older) Yes-balance is off 08/18/2023 Do you have difficulty dress ing or bathing? (5 years old or older) Yes-needs help 08/18/2023 Because of a physical, menta l, or emotional condition, do you have difficulty doing errands alone such as visiting a doctor s office or shopping? (15 years old or older) Yes-does not drive 08/18/19 24 Cognitive Status Response Date of Assessm ent Because of a physical, menta l, or emotional condition, do you have serious difficulty concentrating, remembering, or making decisions? (5 years old or older) No 08/18/2023 documented as of this encounter Miscellaneous Notes * Telephone Encounter - Mayi Gale OSA - 08/31/2023 10:47 AM EST LMOM for pt to call back to schedule a hospital discharge appointment with Dr. Merchant or LEONEL Martin May have to make it a return appt with a Hosp Discharge note. Sending letter today due to no response as of now to phone calls and messages. * Telephone Encounter - Mayi Gale OSA - 08/29/2023 2:43 PM EST LMOM for pt to call back to schedule an appt with Dr. Merchant. Please document " Hosp Discharge" in the appointment note. * Telephone Encounter - Lou Flores OSA - 08/28/2023 3:21 PM EST Attempted to call patient - lmom to return call * Telephone Encounter - Lou Flores OSA - 08/28/2023 10:12 AM EST Pt is a current Dr Merchant patient documented in this encounter Plan of Treatment Upcoming Encounters Date Type Department Care Team (Latest Contact Info) Description 11/16/2023 11:30 AM EDT Hospital Encounter [facility]O [facility] Endoscopy [address] [phone] Tyler Perez MD [address] [place] [address] 11/16/2023 11:30 AM EDT - 11/16/2023 12:00 PM EDT Surgery ENDO [facility], Endoscopy [address] [phone] Tyler Perez MD [address] [place] [address] ESOPHAGOGASTRODUODENOSCOPY (EGD), FLEXIBLE, TRANSORAL, DIAGNOSTIC Scheduled Procedures [...] Not on filedocumented as of this encounter Additional Health Concerns Infection Onset Date Last Indicated Resolved Time C. difficile Rule-Out 08/25/2023 08/26/20232023 5:39 AM EST documented as of this encounter Advance Directives Latest Code Status on File Code Status Date Activated Date Inactivated Comments Full Code 08/18/2023 9:22 PM 08/26/2023 5:36 PM This order reflects the patients wishes and were consensually agreed upon. Question Answer Comments Discussion of Advance Directives occurred with: Not Discussed due to patient's condition Care Teams Manual Control Auger Press Operator Relationship Specialty Start Date End Date Marilyn Abarca CRNP [address] [place] [address] PCP - General Nurse Practitioner 12/08/22 documented as of this encounter
--- OUTSIDE RECORDS SUMMARY | 2023-10-17 06:41 | External Medical Summary | Summary of Care ---
Author Name Unknown Organization [facility] Address [address] [place] [address] Phone [phone] Care Team Providers Care Space And Storage Clerk Name Role Phone Marilyn Abarca Jay CASTANEDA Primary Care Provider [phone] Reason for Visit * Reason Onset Date Comments Appointment 08/26/2023 Encounter Details Date Type Department Care Team (Late st Contact Info) Description 08/26/2023 Telephone Access Center, [place] 100 [address] [facility] *DO NOT REMOVE THIS DEPARTMENT* [place] [address] Rowdy Merchant MD [address] [place] [address] Appointment Allergies Active Allergy Reactions [...] EDT Hospital Encounter ENDO GECL, Endoscopy [address] [phone] Tyler Perez MD [address] [place] [address] 11/16/2023 11:30 AM EDT - 11/16/2023 12:00 PM EDT Surgery ENDO GECL, Endoscopy [address] [phone] Tyler Perez MD [address] [place] [address] ESOPHAGOGASTRODUODENOSCOPY (EGD), FLEXIBLE, TRANSORAL, DIAGNOSTIC Scheduled Procedures [...] Discussed due to patient's condition Care Teams Space And Storage Clerk Relationship Specialty Start Date End Date Marilyn Abarca CRNP [address] [place] [address] PCP - General Nurse Practitioner 12/08/22 documented as of this encounter
--- OUTSIDE RECORDS SUMMARY | 2023-10-17 06:41 | External Medical Summary | Summary of Care ---
Author Name Unknown Organization [facility] Address [address] [facility] [address] Phone [phone] Care Team Providers Care Java Software Engineer Name Role Phone Marilyn Abarca LEONEL Primary Care Provider [phone] Reason for Visit * Reason Onset Date Comments Appointment 08/26/2023 Encounter Details Date Type Department Care Team (Late st Contact Info) Description 08/26/2023 Telephone Access Center, [place] 100 [address] [facility] *DO NOT REMOVE THIS DEPARTMENT* [place] [address] Huong Chávez DPM [address] [facility] [place] [address] Appointment Allergies Active Allergy Reactions Criticality Noted Date Comments Ferric Derisomaltose 12/30/2022 SOB and lost consciousness documented as of this encounter (statuses as of 08/29/2023) Medications Medication Sig Dispensed Refills Start Date [...] as of this encounter (statuses as of 08/29/2023) Active Problems Problem Noted Date Diagnosed Date Malnutrition of moderate degree 08/19/2023 Intermittent complete atrioventricular block Lymphedema 08/18/2023 Venous stasis ulcers of both lower extremities 0 08/18/2023 Generalized weakness 08/18/2023 Thrombocytosis 08/18/2023 Celiac disease 08/18/2023 Other iron deficiency anemias 12/20/2022 Anemia 12/19/2022 documented as of this encounter (statuses as of 08/29/2023) Resolved Problems Problem Noted Date Diagnosed Date Resolved Date Anemia due to chronic blood loss 08/21/2023 08/26/2023 Sore throat 08/18/2023 08/26/2023 documented as of this encounter (statuses as of 08/29/2023) Social History Tobacco Use Types Packs/Day Years [...] encounter Miscellaneous Notes * Telephone Encounter - Joelle García OSA - 08/29/2023 1:14 PM EST LM for patient to call back to schedule a new wound appointment with Dr. Gusman for bilateral LE wounds. * Telephone Encounter - Melanie Morales RN - 08/29/2023 12:29 PM EST Please schedule with first available appointment. May see Dr. Gusman. * Telephone Encounter - Macrina Centeno LPN - 08/29/2023 11:45 AM EST T/C to pt at this time. LVM at this time to call clinic back. Please assist with below message thank you. documented in this encounter Plan of Treatment Upcoming Encounters Date Type Department Care Team (Latest Contact Info) Description 11/16/2023 11:30 AM EDT Hospital Encounter ENDO GECL, Endoscopy Suite [facility] [place] [address] [facility] [place] [phone] Tyler Perez MD 132 [facility] [place] [address] 11/16/2023 11:30 AM EDT - 11/16/2023 12:00 PM EDT Surgery ENDO GECL, Endoscopy [address] [place] [phone] Tyler Perez MD [address] [place] [address] ESOPHAGOGASTRODUODENOSCOPY (EGD), FLEXIBLE, TRANSORAL, DIAGNOSTIC Scheduled Procedures [...] Discussed due to patient's condition Care Teams Java Software Engineer Relationship Specialty Start Date End Date Marilyn Abarca CRNP [address] [place] [address] PCP - General Nurse Practitioner 12/08/22 documented as of this encounter
--- OUTSIDE RECORDS SUMMARY | 2023-10-17 06:41 | External Medical Summary | Summary of Care ---
Author Name Unknown Organization [facility] Address [address] [place] [address] Phone [phone] Care Team Providers Care Meters Superintendent Name Role Phone Marilyn Abarca Jay CASTANEDA Primary Care Provider [phone] Reason for Visit * Reason Onset Date Comments Appointment 08/26/2023 Encounter Details Date Type Department Care Team (Late st Contact Info) Description 08/26/2023 Telephone Access Center, [place] [facility] [address] [facility] *DO NOT REMOVE THIS DEPARTMENT* [place] [address] Rowdy Merchant MD [address] [place] [address] Appointment Allergies Active Allergy Reactions [...] EDT Hospital Encounter ENDO GECL, Endoscopy [address] [place] [phone] Tyler Perez MD 132 [facility] [place] [address] 11/16/2023 11:30 AM EDT - 11/16/2023 12:00 PM EDT Surgery ENDO GECL, Endoscopy [address] [place] [phone] Tyler Perez MD [address] [place] [address] ESOPHAGOGASTRODUODENOSCOPY (EGD), FLEXIBLE, TRANSORAL, DIAGNOSTIC Scheduled Procedures [...] Discussed due to patient's condition Care Teams Meters Superintendent Relationship Specialty Start Date End Date Marilyn Abarca CRNP [address] [place] [address] PCP - General Nurse Practitioner 12/08/22 documented as of this encounter
--- OUTSIDE RECORDS SUMMARY | 2023-10-17 06:41 | External Medical Summary ---
Author Name Unknown Address Unknown Organization K1F:LABORATORY [facility] - [address] [place] [address] Laboratory Report Ordering Provider Test Date Status DALE BRASWELL 09/06/2023 14:36:00 Final Observation Date Value Abnormality Reference (Units ) Status Magnesium 09/06/2023 14:36:00 2.2 1.5-2.6 (m g/dL) Final Performing Location [facility] - [address] [place] [address]
--- OUTSIDE RECORDS SUMMARY | 2023-10-17 06:41 | External Medical Summary | Summary of Care ---
Author Name Unknown Organization [facility] Address [address] [facility] [address] Phone [phone] Care Team Providers Care Feather Stitcher Name Role Phone Marilyn Abarca LEONEL Primary Care Provider [phone] Reason for Visit * Reason Onset Date Comments Appointment 08/26/2023 Encounter Details Date Type Department Care Team (Late st Contact Info) Description 08/26/2023 Telephone Access Center, [place] 100 [address] [facility] *DO NOT REMOVE THIS DEPARTMENT* [place] [address] Huong Chávez DPM 400 [facility] [place] [address] Appointment Allergies Active Allergy [...] old or older) Yes-does not drive 08/18/19 Cognitive Status Response Date of Assessm ent Because of a physical, menta l, or emotional condition, do you have serious difficulty concentrating, remembering, or making decisions? (5 years old or older) No 08/18/2023 documented as of this encounter Miscellaneous Notes * Telephone Encounter - Gilda Yepez OSA - 08/31/2023 8:47 AM EST LM for the patients stating our office closes at 4:30 if he can try to call us earlier. * Telephone Encounter - Joelle García OSA - 08/31/2023 7:43 AM EST Patient's LM on the machine stating he can only call around 4:30 pm as he doesn't have access to the phone until then. He will try to call back again to schedule the wound appointment, but also stated that Dr. Phoenix Barker has been treating the leg wounds. * Telephone Encounter - Joelle García OSA - 08/30/2023 8:00 AM EST LM for patient to call back to schedule a new wound appointment with Dr. Gusman for bilateral LE wounds. * Telephone Encounter - Joelle García OSA [...] EDT Hospital Encounter ENDO GECL, Endoscopy [address] [phone] Tyler Perez MD [address] [place] [address] 11/16/2023 11:30 AM EDT - 11/16/2023 12:00 PM EDT Surgery ENDO GECL, Endoscopy [address] [phone] Tyler Perez MD [address] [place] [address] ESOPHAGOGASTRODUODENOSCOPY (EGD), FLEXIBLE, TRANSORAL, DIAGNOSTIC Scheduled Procedures [...] Discussed due to patient's condition Care Teams Feather Stitcher Relationship Specialty Start Date End Date Marilyn Abarca CRNP [address] [place] [address] PCP - General Nurse Practitioner 12/08/22 documented as of this encounter
--- OUTSIDE RECORDS SUMMARY | 2023-10-17 06:41 | External Medical Summary | Summary of Care ---
Author Name Unknown Organization [facility] Address [address] [facility] [address] Phone [phone] Care Team Providers Care Logistics Analytics Manager Name Role Phone Marilyn Abarca LEONEL Primary Care Provider [phone] Reason for Visit * Reason Onset Date Comments Appointment 08/26/2023 Encounter Details Date Type Department Care Team (Late st Contact Info) Description 08/26/2023 Telephone Access Center, [place] 100 [address] [facility] *DO NOT REMOVE THIS DEPARTMENT* [place] [address] Huong Chávez DPM 400 [facility] [place] [address] Appointment Allergies Active Allergy Reactions Criticality Noted Date Comments Ferric Derisomaltose 12/30/2022 SOB and lost consciousness documented as of this encounter (statuses as of 09/01/2023) Medications Medication Sig Dispensed Refills Start Date [...] as of this encounter (statuses as of 09/01/2023) Active Problems Problem Noted Date Diagnosed Date Malnutrition of moderate degree 08/19/2023 Intermittent complete atrioventricular block Lymphedema 08/18/2023 Venous stasis ulcers of both lower extremities 0 08/18/2023 Generalized weakness 08/18/2023 Thrombocytosis 08/18/2023 Celiac disease 08/18/2023 Other iron deficiency anemias 12/20/2022 Anemia 12/19/2022 documented as of this encounter (statuses as of 09/01/2023) Resolved Problems Problem Noted Date Diagnosed Date Resolved Date Anemia due to chronic blood loss 08/21/2023 08/26/2023 Sore throat 08/18/2023 08/26/2023 documented as of this encounter (statuses as of 09/01/2023) Social History Tobacco Use Types Packs/Day Years [...] Telephone Encounter - Joelle García OSA - 09/01/2023 8:20 AM EST I spoke with the patient's and scheduled the wound appointment for 09/20/23 at 1:[address] Valles. He states the family doctor has been treating the wounds and they are starting to heal well. I explained he should call back and cancel the appointment if her legs are completely healed. * Telephone Encounter - Gilda Yepez OSA [...] 4 2:30 PM EST Telemedicine Hematology/Onco logy, [address] [address] Rowdy Merchant MD [address] [place] [address] [place], Telemed [facility] [address] [place] [address] 4 1:00 PM EST Office Visit Wound Care, [address] [address] Edelmira Valles DPM [address] [place] [address] 4 11:30 AM EDT Hospital Encounter ENDO GECL, Endoscopy [address] [place] [phone] Tyler Perez MD [address] [place] [address] 4 11:30 AM EDT - 4 12:00 PM EDT Surgery ENDO GECL, Endoscopy [address] [place] [phone] Tyler Perez MD [address] [place] [address] ESOPHAGOGASTRODUODENOSCOPY (EGD), FLEXIBLE, TRANSORAL, DIAGNOSTIC Scheduled Procedures [...] Discussed due to patient's condition Care Teams Logistics Analytics Manager Relationship Specialty Start Date End Date Marilyn Abarca CRNP [address] [place] [address] PCP - General Nurse Practitioner 12/08/22 documented as of this encounter
--- OUTSIDE RECORDS SUMMARY | 2023-10-17 06:41 | External Medical Summary | Summary of Care ---
Author Name Unknown Organization [facility] Address [address] [facility] [address] Phone [phone] Care Team Providers Care School Cafeteria Head Cook Name Role Phone Marilyn Abarca LEONEL Primary Care Provider [phone] Reason for Visit * Reason Onset Date Comments Appointment 08/26/2023 Encounter Details Date Type Department Care Team (Late st Contact Info) Description 08/26/2023 Telephone Access Center, [place] 100 [address] [facility] *DO NOT REMOVE THIS DEPARTMENT* [place] [address] Huong Chávez DPM 400 [facility] [place] [address] Appointment Allergies Active Allergy Reactions Criticality Noted Date Comments Ferric Derisomaltose 12/30/2022 SOB and lost consciousness documented as of this encounter (statuses as of 08/30/2023) Medications Medication Sig Dispensed Refills Start Date [...] as of this encounter (statuses as of 08/30/2023) Active Problems Problem Noted Date Diagnosed Date Malnutrition of moderate degree 08/19/2023 Intermittent complete atrioventricular block Lymphedema 08/18/2023 Venous stasis ulcers of both lower extremities 0 08/18/2023 Generalized weakness 08/18/2023 Thrombocytosis 08/18/2023 Celiac disease 08/18/2023 Other iron deficiency anemias 12/20/2022 Anemia 12/19/2022 documented as of this encounter (statuses as of 08/30/2023) Resolved Problems Problem Noted Date Diagnosed Date Resolved Date Anemia due to chronic blood loss 08/21/2023 08/26/2023 Sore throat 08/18/2023 08/26/2023 documented as of this encounter (statuses as of 08/30/2023) Social History Tobacco Use Types Packs/Day Years [...] EDT Hospital Encounter ENDO GECL, Endoscopy [address] [phone] Tyler Perez MD [address] [place] [address] 11/16/2023 11:30 AM EDT - 11/16/2023 12:00 PM EDT Surgery ENDO GECL, Endoscopy [address] [phone] Tyler Perez MD [address] [place] [address] ESOPHAGOGASTRODUODENOSCOPY (EGD), FLEXIBLE, TRANSORAL, DIAGNOSTIC Scheduled Procedures [...] Discussed due to patient's condition Care Teams School Cafeteria Head Cook Relationship Specialty Start Date End Date Marilyn Abarca CRNP [address] [place] [address] PCP - General Nurse Practitioner 12/08/22 documented as of this encounter
--- OUTSIDE RECORDS SUMMARY | 2023-10-17 06:41 | External Medical Summary ---
Author Name Unknown Address Unknown Organization K1F:LABORATORY [facility] - [address] [place] [address] Laboratory Report Ordering Provider Test Date Status JUANITO CHOUDHURY 09/06/2023 14:36:00 Final Observation Date Value Abnormality Reference (Units ) Status KAMRYN 09/06/2023 14:36:00 27 26-192 (U/ L) Final Performing Location LAB[facility] - [address] [place] [address]
--- OUTSIDE RECORDS SUMMARY | 2023-10-17 06:41 | External Medical Summary ---
Author Name Unknown Address Unknown Organization K1F:[facility]ORY [facility] - [address] [facility] [place] [address] Laboratory Report Ordering Provider Test Date Status ALANNAH ALVARADO 09/06/2023 14:36:00 Final Observation Date Value Abnormality Reference (Units ) Status SYNC LEUKOCYTES IN BLOOD BY AUTOMATED COUNT 09/06/2023 14:36:00 20.03 Above high normal 4.00-10.80 (K/uL) Final Segs 09/06/2023 14:36:00 78.0 Above high normal 40.0-75.0 (%) Final Lymphs % 09/06/2023 14:36:00 11.0 Below low normal 18.0-42.0 (%) Final Monos 09/06/2023 14:36:00 8.5 1.0-11.0 (%) Final Eosinophils 09/06/2023 14:36:00 1.1 0.0-6.0 (%) Final Basos 09/06/2023 14:36:00 0.7 0.0-2.0 (%) Final Immature Granulocyte, Percent 09/06/2023 14:36:00 0.7 0.0-2.0 (%) Final Absolute Segs 09/06/2023 14:36:00 15.59 Above high normal 1.80-7.70 (K/uL) Final Lymphs, absolute 09/06/2023 14:36:00 2.21 1.00-4.80 (K/ul) Final Monos, Abs 09/06/2023 14:36:00 1.70 Above high normal 0.00-1.10 (K/uL) Final Eos, Abs 09/06/2023 14:36:00 0.23 0.00-0.70 (K/uL) Final Basos, Abs 09/06/2023 14:36:00 0.15 0.00-0.20 (K/uL) Final Immature Granulocytes, Number 09/06/2023 14:36:00 0.15 0.00-0.20 (K/uL) Final Performing Location LABORATORY [facility] - [facility] [place] [address]
--- OUTSIDE RECORDS SUMMARY | 2023-10-17 06:41 | External Medical Summary | Summary of Care ---
Author Name Unknown Organization [facility] Address [address] [place] [address] Phone [phone] Care Team Providers Care Clerical Adviser Name Role Phone Marilyn Abarca Jay CASTANEDA Primary Care Provider [phone] Reason for Visit * Reason Onset Date Comments Appointment 08/26/2023 Encounter Details Date Type Department Care Team (Late st Contact Info) Description 08/26/2023 Telephone Access Center, [place] 100 [address] [facility] *DO NOT REMOVE THIS DEPARTMENT* [place] [address] Rowdy Merchant MD [address] [place] [address] Appointment Allergies Active Allergy Reactions Criticality Noted Date Comments Ferric Derisomaltose 12/30/2022 SOB and lost consciousness documented as of this encounter (statuses as of 08/28/2023) Medications Medication Sig Dispensed Refills Start Date [...] as of this encounter (statuses as of 08/28/2023) Active Problems Problem Noted Date Diagnosed Date Malnutrition of moderate degree 08/19/2023 Intermittent complete atrioventricular block Lymphedema 08/18/2023 Venous stasis ulcers of both lower extremities 0 08/18/2023 Generalized weakness 08/18/2023 Thrombocytosis 08/18/2023 Celiac disease 08/18/2023 Other iron deficiency anemias 12/20/2022 Anemia 12/19/2022 documented as of this encounter (statuses as of 08/28/2023) Resolved Problems Problem Noted Date Diagnosed Date Resolved Date Anemia due to chronic blood loss 08/21/2023 08/26/2023 Sore throat 08/18/2023 08/26/2023 documented as of this encounter (statuses as of 08/28/2023) Social History Tobacco Use Types Packs/Day Years [...] encounter Miscellaneous Notes * Telephone Encounter - Lou Flores OSA [...] EDT Hospital Encounter ENDO GECL, Endoscopy [address] [phone] Tyler Perez MD [address] [place] [address] 11/16/2023 11:30 AM EDT - 11/16/2023 12:00 PM EDT Surgery ENDO GECL, Endoscopy [address] [phone] Tyler Perez MD [address] [place] [address] ESOPHAGOGASTRODUODENOSCOPY (EGD), FLEXIBLE, TRANSORAL, DIAGNOSTIC Scheduled Procedures [...] Discussed due to patient's condition Care Teams Clerical Adviser Relationship Specialty Start Date End Date Marilyn Abarca CRNP [address] [place] [address] PCP - General Nurse Practitioner 12/08/22 documented as of this encounter
--- OUTSIDE RECORDS SUMMARY | 2023-10-17 06:41 | External Medical Summary | Summary of Care ---
Author Name Unknown Organization [facility] Address [address] [place] [address] Phone [phone] Care Team Providers Care Monitor Worker Name Role Phone Marilyn Abarca Jay CASTANEDA Primary Care Provider [phone] Reason for Visit * Reason Onset Date Comments Appointment 08/26/2023 Encounter Details Date Type Department Care Team (Late st Contact Info) Description 08/26/2023 Telephone Access Center, [place] 100 [address] [facility] *DO NOT REMOVE THIS DEPARTMENT* [place] [address] Rowdy Merchant MD [address] [place] [address] Appointment Allergies Active Allergy Reactions [...] EDT Hospital Encounter ENDO GECL, Endoscopy [address] [phone] Tyler Perez MD [address] [place] [address] 11/16/2023 11:30 AM EDT - 11/16/2023 12:00 PM EDT Surgery ENDO GECL, Endoscopy [address] [phone] Tyler Perez MD [address] [place] [address] ESOPHAGOGASTRODUODENOSCOPY (EGD), FLEXIBLE, TRANSORAL, DIAGNOSTIC Scheduled Procedures [...] Discussed due to patient's condition Care Teams Monitor Worker Relationship Specialty Start Date End Date Marilyn Abarca CRNP [address] [place] [address] PCP - General Nurse Practitioner 12/08/22 documented as of this encounter
--- OUTSIDE RECORDS SUMMARY | 2023-10-17 06:41 | External Medical Summary | Summary of Care ---
Author Name Unknown Organization [facility] Address [address] [place] [address] Phone [phone] Care Team Providers Care Granulator Name Role Phone Marilyn Abarca Jay CASTANEDA Primary Care Provider [phone] Reason for Visit * Reason Onset Date Comments Appointment 08/26/2023 Encounter Details Date Type Department Care Team (Late st Contact Info) Description 08/26/2023 Telephone Access Center, [place] 100 [address] [facility] *DO NOT REMOVE THIS DEPARTMENT* [place] [address] Rowdy Merchant MD [address] [place] [address] Appointment Allergies Active Allergy Reactions [...] encounter Miscellaneous Notes * Telephone Encounter - Brooklyn Khan OSA - 09/01/2023 8:11 AM EST Satya called back in and scheduled. * Telephone Encounter - Mayi Gale OSA [...] EDT Hospital Encounter ENDO GECL, Endoscopy [address] [place] [phone] Tyler Perez MD [address] [place] [address] 11/16/2023 11:30 AM EDT - 11/16/2023 12:00 PM EDT Surgery ENDO GECL, Endoscopy [address] [place] [phone] Tyler Perez MD [address] [place] [address] ESOPHAGOGASTRODUODENOSCOPY (EGD), FLEXIBLE, TRANSORAL, DIAGNOSTIC Scheduled Procedures [...] Discussed due to patient's condition Care Teams Granulator Relationship Specialty Start Date End Date Marilyn Abarca CRNP [address] [place] [address] PCP - General Nurse Practitioner 12/08/22 documented as of this encounter
--- OUTSIDE RECORDS SUMMARY | 2023-10-17 06:41 | External Medical Summary | Summary of Care ---
Author Name Unknown Organization [facility] Address [address] [facility] [address] Phone [phone] Care Team Providers Care Press Officer Name Role Phone Marilyn Abarca LEONEL Primary Care Provider [phone] Reason for Visit * Reason Onset Date Comments Appointment 08/26/2023 Encounter Details Date Type Department Care Team (Late st Contact Info) Description 08/26/2023 Telephone Access Center, [place] 100 [address] [facility] *DO NOT REMOVE THIS DEPARTMENT* [place] [address] Huong Chávez DPM 400 [facility] [place] [address] Appointment Allergies Active [...] EDT Hospital Encounter ENDO GECL, Endoscopy [address] [place] [phone] Tyler Perez MD [address] [place] [address] 11/16/2023 11:30 AM EDT - 11/16/2023 12:00 PM EDT Surgery ENDO GECL, Endoscopy [address] [phone] Tyler Perez MD [address] [place] [address] ESOPHAGOGASTRODUODENOSCOPY (EGD), FLEXIBLE, TRANSORAL, DIAGNOSTIC Scheduled Procedures [...] Discussed due to patient's condition Care Teams Press Officer Relationship Specialty Start Date End Date Marilyn Abarca CRNP [address] [place] [address] PCP - General Nurse Practitioner 12/08/22 documented as of this encounter
--- OUTSIDE RECORDS SUMMARY | 2023-10-17 06:42 | External Medical Summary ---
Author Name Unknown Address Unknown Organization K1F:LABORATORY [facility] - [address] [place] [address] Laboratory Report Ordering Provider Test Date Status RAYMONDCOLIN 08/26/2023 04:29:26 Final Observation Date Value Abnormality Reference (Units) Status Source 08/26/2023 04:29:26 Semi-formed Final Clostridioides difficile toxin and [id number] strain DNA panel - Stool by RICK with probe detection 08/26/2023 04:29:26 Negative. No C. difficile toxin B gene DNA detected by PCR (Amplified Probe). Negative Final Performing Location LABORATORY [facility] - [address] [place] [address]
--- OUTSIDE RECORDS SUMMARY | 2023-10-17 06:42 | External Medical Summary ---
Author Name Unknown Address Unknown Organization [id number]:[facility] - [address] [place] [address] Laboratory Report Ordering Provider Test Date Status TRACY TRUJILLO 08/26/2023 07:08:00 Final Observation Date Value Abnormality Reference (Units ) Status BUN 08/26/2023 07:08:00 3 Below low normal 6-20 (mg/dL) Final Creatinine 08/26/2023 07:08:00 0.4 Below low normal 0.5-1.0 (mg/dL) Final Glomerular filtration rate/1.73 sq M.predicted [Volume Rate/Area] in Serum, Plasma or Blood by Creatinine-based formula (CKD-EPI) 08/26/2023 07:08:00 >90 >=60 (mL/min) Final eGFR is calculated based on the CKD-EPI 2020 equation SODIUM 08/26/2023 07:08:00 143 135-146 (m mol/L) Final Potassium 08/26/2023 07:08:00 3.3 Below low normal 3.5 -5.1 (mmol/L) Final Cl 08/26/2023 07:08:00 111 Above high normal 98 -107 (mmol/L) Final CO2 08/26/2023 07:08:00 22 22-32 (mmo l/L) Final Anion gap 08/26/2023 07:08:00 10 7-15 (mmol /L) Final Glucose 08/26/2023 07:08:00 103 70-120 (mg /dL) Final Calcium 08/26/2023 07:08:00 8.4 8.4-10.2 ( mg/dL) Final Performing Location [facility] - [address] [place] [id number]
--- OUTSIDE RECORDS SUMMARY | 2023-10-17 06:42 | External Medical Summary | Summary of Care ---
Author Name Unknown Organization [facility] Address [address] [address] Phone [phone] Care Team Providers Care Geological Engineer Name Role Phone Marilyn Abarca LEONEL Primary Care Provider [phone] Reason for Visit * Reason Comments Weakness, Generalized legs * Auth/Cert Specialty Diagnoses / Procedures Referred By Rowan kiser Referred To Contact Diagnoses Thrombocytosis Referral ID Status Reason Start Date Expiration Date Visits Re quested Visits Authorized [id number] Encounter Details Date Type Department Care Team (Latest Contact Info) Description 08/18/2023 7:14 PM EST - 08/26/2023 1:36 PM EST Hospital Encounter [facility] 4th Floor [address] [place] [address] Kwesi Mcadams, [address] [id number] Samuel Little, [address] [place], [place] [id number] Magali Cerrato MD [address] [place], [place] [id number] Doni Cruz, DO [address] [place], [place] [id number] Various: KRAVS,EKG Discharge Disposition: Home - Self Care Allergies Active Allergy Reactions Criticality Noted Date Comments Ferric Derisomaltose 12/30/2022 SOB and lost consciousness documented as of this encounter (statuses as of 08/27/2023) Medications Medication Sig Dispensed Refills Start Date [...] as of this encounter (statuses as of 08/27/2023) Active Problems Problem Noted Date Diagnosed Date Malnutrition of moderate degree 08/19/2023 Intermittent complete atrioventricular block Lymphedema 08/18/2023 Venous stasis ulcers of both lower extremities 0 08/18/2023 Generalized weakness 08/18/2023 Thrombocytosis 08/18/2023 Celiac disease 08/18/2023 Other iron deficiency anemias 12/20/2022 Anemia 12/19/2022 documented as of this encounter (statuses as of 08/27/2023) Resolved Problems Problem Noted Date Diagnosed Date Resolved Date Anemia due to chronic blood loss 08/21/2023 08/26/2023 Sore throat 08/18/2023 08/26/2023 documented as of this encounter (statuses as of 08/27/2023) Social History Tobacco Use Types Packs/Day Years [...] Sign Reading Time Taken Comments Blood Pressure 92/55 08/26/2023 7:00 AM EST Pulse 77 08/26/2023 7:00 AM EST Temperature 37.3 C (99.1 F) 08/26/2023 7:00 AM ES T Respiratory Rate 16 08/26/2023 7:00 AM EST Oxygen Saturation 100% 08/26/2023 7:00 AM EST Inhaled Oxygen Concentration - - Weight 51.5 kg (113 lb 9.6 oz) 08/26/2023 6:00 A M EST Height 162.6 cm (5' 4") 08/18/2023 10:00 PM EST Body Mass Index 19.5 08/18/2023 10:00 PM EST documented in this encounter Functional [...] No 08/18/2023 documented as of this encounter Discharge Summaries * Praful Kelley MD - 08/25/2023 3:[address] [facility] [address] Admission Date: 08/18/2023 Discharge Date: 08/26/2023 RECOMMENDED TO DO FOR NEXT PROVIDER(S): Follow up with hematology/ oncology etiology clinic regarding reactive thrombocytosis Follow-up in 2 months with GI for EGD and repeat biopsy of esophagus and duodenal. Follow-up with wound care clinic regarding LE ulcers Complete 10 day course of Augmentin Monitor BP and dosage of Midodrine REASON(S) FOR MEDICATION CHANGE(S): ID recommendation for discharge on 10 days of 875-125 BID Augmentin Midodrine 5 mg TID for low BP DISPOSITION ON DISCHARGE: home Active Hospital Problems Diagnosis *Principal Diagnosis - Generalized weakness Malnutrition of moderate degree (HCC) Intermittent complete atrioventricular block (HCC) Lymphedema Venous stasis ulcers of both lower extremities (HCC) Thrombocytosis Celiac disease Resolved Hospital Problems Diagnosis Date Resolved Anemia due to chronic blood loss 08/26/2023 Sore throat 08/26/2023 ADMISSION HISTORY & PHYSICAL EXAM (focused): Dr. Candy Hernandez " PRESENTING PROBLEM: weakness HPI: This is a 48 yo woman with below pmh that includes iron deficiency anemia, thrombocytosis (thought to be reactive to anemia), chronic lymphedema in lower legs and chronic leg ulcers. She came toED with complaint of progressive weakness, to the point that she is no longer able to stand up without assistance; it has been worsening for several months - but much more severe in past week. She also complains of sore throat for 1 week and mentioned that she feels short of breath at night. She has on and off diarrhea for years. No recent fever but chronically cold. No nausea or vomiting, no dysuria. BP: 102 mmHg/72 mmHg (08/18/232099) Pulse: 83 (08/18/232025) Temp: 36.78 C (08/18/231909) Resp: 22 (08/18/232025) SpO2: 100 % (08/18/231909) Constitutional: no acute distress HEENT: normocephalic, atraumatic; upper plate; posterior pharynx appears benign Eyes: sclera and conjunctiva normal Neck: supple, no noticeable adenopathy CV: normal rate and rhythm, no murmur, gallops or rub Chest: normal respiratory effort, lungs clear to auscultation Abdomen: soft, bowel sounds normal, no tenderness Extremities: 3+ bilateral lower leg edema, below the knees. Skin: warm, skin in edematous area is pigmented c/w venous stasis; there are multiple large stasis ulcers, with granulation tissue; largest in right posterior calf. Surrounding skin is indurated. Neuro: alert, oriented to person, place, very weak; speaks in a whisper. Face symmetric. Otherwise non-focal" HOSPITAL COURSE (focused): 48-year-old female with reactive thrombocytosis, chronic diarrhea, chronic LE non-healing ulcers, and iron deficiency anemia initially presenting with generalized weakness and ambulatory dysfunction.ED work-up revealed leukocytosis. Patient was started on fluids, blood cultures were drawn, antibiot ics were started, surgery was consulted for the wound debridement, and imaging was ordered. CT abdomen/ pelvis w/ contrast showed fluid-filled small and large bowel correlating with any history of diarrheal illness; no significant bowel wall thickening; mild mesenteric lymphadenopathy and mesenteric fat stranding overall similar to prior exam on 12/19/2022, and findings concerning for possible pelvic venous insufficiency, correlating with any history of chronic pelvic pain. CT chest w/ contrastshowed no acute thoracic abnormality. CXR, XR L-spine, XR T-spine, XR TibFib showed no acute findings. CT head/ brain wo/contrast showed no intracranial abnormalities. Vascular venous duplex of BLE showed no evidence of acute DVT.Nutrition and GI was consulted as well due to possible Celiac disease. Heme/Onc consulted concerning possible multiple myeloma. C diff panel and GI pathogen panel negative. UA negative. RPP negative. Celiac Disease Serology negative. General surgery, Dermatology and IDconsulted. PT/OT consulted with recommendation for rolling walker. Cardiology consulted for intermittent complete heart block, with patient not agreeable to pacemaker; continued to monitor on telemetry with recommendation of Zio patch as an outpatient Operations & Procedures: none Complications: none significant Significant Lab and Imaging Results: As mentioned above Results Pending at Discharge: Lab Results Pending at Discharge: SOLUBLE TRANSFERRIN RECEPTOR Add-on MEDICATION UPDATES AT DISCHARGE START taking these medications INSTRUCTIONS amoxicillin-clavulanate 875-125 MG per Tablet Commonly known as: Augmentin Take 1 Tablet by mouth in the morning and 1 Tablet before bedtime. Do all this for 10 days. midodrine 5 MG Tablet Commonly known as: Proamatine Take 1 Tablet by mouth in the morning and 1 Tablet at noon and 1 Tablet before bedtime. Roller Walker Misc Use as directed CONTINUE taking these medications INSTRUCTIONS Furosemide 5 MG Tabs Commonly known as: Lasix Notes to patient: Used to get rid of extra fluid and treat high blood pressure (Diuretic/water pill) Take by mouth daily. CONTINUE taking these medications but follow up with your Primary Care Physician (PCP). INSTRUCTIONS Sulfamethoxazole-Trimethoprim 200-40 MG/5ML suspension Commonly known as: Bactrim SCHEDULED FOLLOW-UP: Future Appointments This patient does not currently have any appointments scheduled. Outpatient Follow Up Basic Metabolic Panel CBC with WBC Differential Other Information Indwelling Devices: LINES ALL Duration Peripheral Line Left;Lower Arm 22 Gauge 1 day Vital Signs (last recorded): Most Recent Systolic BP: 92 mmHg (08/26/23699) Most Recent Diastolic BP: 55 mmHg (08/26/23699) Pulse: 77 (08/26/23699) Resp: 16 (08/26/23699) Most Recent Temperature: 37.28 C (08/26/23699) Weight: 51.5 kg (113 lb 9.6 oz) (08/26/23599) SpO2: 100 % (08/26/23699) Allergies: Monoferric [ferric derisomaltose] Activity: as tolerated and limited activity - please use rolling walker as recommended by physical therapy Diet: age appropriate diet Code status (this admission): Full Code Discussion of adv directives occurred with - adult: Not Discussed due to patient's condition Condition on Discharge: stable Isolation status: None Cognition: normal HOSPITAL CONSULTS ORDERED: ADULT OCCUPATIONAL THERAPY CONSULT IP ADULT PHYSICAL THERAPY CONSULT IP GENERAL SURGERY CONSULT IP HEMATOLOGY CONSULT IP NUTRITION SERVICES (DIETITIAN) CONSULT IP CARDIOLOGY CONSULT IP GASTROENTEROLOGY CONSULT IP WOUND CONSULT IP GENERAL SURGERY CONSULT IP REFERRING PHYSICIAN: Ref: [id number]] NO STREET ADDRESS AVAILABLE None (office) None (fax) PRIMARY CARE PROVIDER: PCP: LEONEL Price [address] [facility] [address] (office) [phone] (fax) Note: To contact a physician responsible for this patients hospital care, please call [email or web address] [phone]. Associated attestation - Doni Cruz DO - 08/26/2023 11:51 AM EST I saw and evaluated the patient today. I have reviewed the trainee note and agree. A diagnostic bedside service was provided. I reviewed the interpretation of the diagnostic study. Iagree with the trainee note. I spent a total of 45 minutes coordinating, documenting, and providing care for this patient excluding time spent in the performance of separately billed services. PHYSICAL EXAMINATION: Gen: AAO x 3 NAD Afeb, Pleasant HEENT: NCAT, PERRLA, EOMI, Anicteric Sclera, No Pharyngeal Erythema Neck: Supple wo JVD or Adenopathy, No Bruit Lungs:CTAB No RRW Chest: No S4, +S1/S2, No S4, No Murmurs, No Rubs, No Gallops, No Ectopy Abd: Soft Non Tender, Non Distended, BS+, No HSM, No Rebound, No Rigidity, No Guarding Ext: Wrapped Musc: FROM x 4 Skin: Warm, Dry, Intact without rashes Neuro: Non focal, geospatial information scientist intact, DTR/Motor/Sensory and Strength all WNL Psych: Pleasant documented in this encounter Discharge Instructions * Discharge Instr - AVS* Praful Kelley MD - 08/26/2023 11:22 AM EST Discharge Date: 08/26/2023 The information below provides you with the instructions and the list of medications you need to betaking following discharge from the hospital. If you have any questions, please ask before leaving. If you have questions after leaving, you can reach us at the numbers below. YOUR HOSPITAL PROVIDERS: Discharging Provider: Doni Cruz DO Provider Department: Hospital Medicine To reach this Provider Monday through Monday (8:00 AM to 4:30 PM) for any questions or test results: Call [phone] For after-hours concerns: Call [phone] and have your provider paged, or the provider crm functional analyst for the Department of Hospital Medicine paged. [...] available, you can go to your local [facility] or [facility] during their business hours. In an EMERGENCY situation: Call 911 or go to the nearest emergency room. A BRIEF SUMMARY OF YOUR HOSPITAL STAY: You came to the hospital with: complaint of generalized weakness and intermittent loose stool Your main diagnosis at discharge was: reactive increase in blood platelets, lower leg ulcers, generalized weakness and moderate malnutrition Operations & Procedures performed: none Complications: none significant Inpatient test results that are pending at discharge: none Advance Directive Documented: Advance Directive Does the Patient have an Advance Directive? No YOUR FOLLOW UP APPOINTMENTS: Primary Care Provider Information: PCP: LEONEL Price [address] [facility] [address] [address] (office) [phone] (fax) An appointment was requested with your PCP (LEONEL Price) within 7 days. (Please take this form to this visit with your primary care physician.) You need the following studies in the future: BMP: date - 08/31/23 and CBC: date - 08/31/23 INSTRUCTIONS: Diet: Normal diet Activity: As tolerated and Walker or cane Additional Instructions: - Call your primary care physician or seek medical attention if any symptoms worsen. Antibiotics -Please complete the full course (10 days) of Augmentin. Take one tablet in the morning, and one atnight. -If you experience any side effects, or rashes, immediately contact your primary care provider or seek medical attention at the nearest emergency department Follow-up - Please complete blood work in 1 week - Please follow-up with Wound care clinic in 1 week - Please follow-up with Hematology/ Oncology etiology clinic in 2 weeks - Please follow-up with Gastroenterology in 2 months Wound care: -Recommend wet to dry dressings with Puracyn, Normal Saline, or 1/4 strength Dakin's solution on larger wounds. -Silvadene ointment on small wounds. -Wrap with Kerlix and Ramos wrap. -Dressing changes twice a day. -Keep legs elevated as much as possible. documented in this encounter Progress Notes * Praful Kelley MD - 08/25/2023 12:20 PM EST Images from the original note were not included. [facility] [id number]/W HOSPITAL COURSE: 48-year-old female with reactive thrombocytosis, chronic diarrhea, chronic LE non-healing ulcers, and iron deficiency anemia initially presenting with generalized weakness and ambulatory dysfunction. ED work-up revealed leukocytosis. Patient was started on fluids, blood cultures were drawn, antibiotics were started, surgery was consulted for the wound debridement, and imaging wasordered. Nutrition and GI was consulted as well due to possible Celiac disease. Heme/Onc consulted concerning possible multiple myeloma. C diff panel and GI pathogen panel negative. UA negative. CXR negative for pneumonia. RPP negative. Celiac Disease Serology negative. INTERVAL HISTORY: Patient was sitting upright in bed eating breakfast when I saw her this morning, she stated she shecontinues to feel improved. She denied any current chest pain shortness of breath, nausea, vomiting, issues with urination and endorsed chronic diarrhea, but denies current abdominal pain. Patient's lower extremity ulcers have been redressed, with wound care indicating they are much improved. Objective Physical Exam Most Recent Vital Signs: BP: 93 mmHg/52 mmHg (08/25/23 0743) Pulse: 67 (08/25/23 0743) Temp: 37.22 C (08/25/23 0743) Resp: 16 (08/25/2343) SpO2: 99 % (08/25/2343) Constitutional: frail appearing but improved, sitting upright in bed CV: regular rate and rhythm Chest: normal respiratory effort, lungs clear to auscultation bilaterally Abdomen: soft, non-tender Extremities: warm and dry, BLE wrapped in bandages Neuro: alert, oriented to person, place, and time, no focal deficits Psych: congruent mood and affect, memory intact Peripheral Line Left;Lower Arm 22 Gauge (Active) Number of days: 0 STUDIES: Encounter Orders Labs and other studies reviewed with pertinent findings noted below: Lab results within last 7 days (see chart for full results) Units 08/25/23 0618 08/24/23 0606 08/23/23 0620 08/22/23 0603 08/21/23 0332 08/20/23 0601 08/19/23 0608/18/23 1947 WBC K/uL 18.82* 14.98* 14.71* 13.89* 17.27* 16.32* 14.97* 14.68* RBC M/uL 4.24 4.36 4.29 4.29 4.10 4.18 3.89 4.50 HGB g/dL 11.7* 12.4 12.2 12.2 11.3* 11.9* 11.3* 12.8 HCT % 35.1* 36.9 35.9* 35.8* 33.7* 34.6* 32.1* 38.4 PLT K/uL 1,066* 1,110* 1,142* 1,124* 1,101* 1,147* 1,089* 1,192* Lab results within last 7 days (see chart for full results) Units 08/25/23 0618 08/24/23 0606 08/23/23 0620 08/22/23 0603 08/21/23 0331 08/20/23 0601 08/19/230 08/19/23 0618 08/18/23 1947 Sodium mmol/L 141 143 141 142 138 141 140 141 135 Potassium mmol/L 3.5 3.5 3.6 3.6 3.9 4.1 4.1 3.1* 3.6 Chloride mmol/L 111* 112* 112* 114* 110* 112* 114* 111* 103 CO2 mmol/L 21* 21* 18* 17* 17* 20* 18* 20* 21* BUN mg/dL 3* 2* 2* 3* 4* 4* 5* 5* 9 Creatinine mg/dL 0.3* 0.3* 0.3* 0.4* 0.4* 0.5 0.5 0.4* 0.5 Glucose mg/dL 102 98 90 89 101 86 107 94 96 Calcium mg/dL 8.5 8.2* 8.0* 8.3* 8.0* 8.3* 8.3* 8.1* 8.7 Magnesium mg/dL -- -- -- -- -- -- -- 2.2 2.1 Lab results within last 7 days (see chart for full results) Units 08/20/23 1516 08/18/23 1947 Protein g/dL 5.6* 6.3 Bilirubin, Total mg/dL -- 0.2 Alkaline Phosphatase U/L -- 144* AST U/L -- 23 ALT U/L -- 18 No imaging results in the last 24 hours Assessment and Plan IMPRESSION : Principal Problem: Generalized weakness Active Problems: Lymphedema Venous stasis ulcers of both lower extremities (HCC) Sore throat Thrombocytosis Celiac disease Malnutrition of moderate degree (HCC) Intermittent complete atrioventricular block (HCC) Anemia due to chronic blood loss Resolved Problems: * No resolved hospital problems. * I have examined the patient and consistent with the dietitian's findings found malnutrition presentof Moderate (08/19/23 1407) degree. This is consistent with such due to Inadequate energy intake;Muscle loss (08/19/23 1407). I have also reviewed and agree with the dietitian's plan of care which include Continued oral nutrition supplement (08/23/23 1209). DIFFERENTIAL AND PLAN: Leukocytosis with unknown underlying cause/s in the setting of polymicrobial infection with continued WBC elevation -continue midodrine for soft BP -monitor fever -monitor wbc -reconsult ID for further planning to transition for possible d/c Recommendation from ID -D/C pip-tazo and vancomycin -Consider biopsy of wound to rule out pyoderma -Plans for colonoscopy noted -Ampicillin-sulbactam 3g IV q 6 for now Recommendations from Gastroenterology -haplotype for celiac disease (in process) -outpatient follow-up for EGD in 2-3 months with repeat biopsies of esophagus and duodenal, concernEOE -continue gluten free diet Recommendations from Hematology Oncology -myeloproliferative disease panel (in process) -follow-up in etiology clinic after discharge Recommendations from Dermatology -suggestive of pyoderma gangrenosum with punched out ulcers -agree with workup for underlying associated diseases; inflammatory bowel disease, inflammatory arthritis, malignancy, hematological disorders -MALISSA study normal -check SPEP, and antiphospholipid LE ulcers General surgery recommendations -wet to dry dressings on larger wound -Silvadene ointment on small wound -wrap with Kerlix and Ramos wrap -dressing changes twice daily -keep legs elevated as much as possible -follow with wound clinic outpatient Wound care recommendation -add Puracyn to dressing Mobility -PT recommends rolling walker -continue gait training with PT Intermittent complete heart block Recommendations from Cardiology -patient not agreeable to pacemaker -monitor on telemetry -consider Zio patch as an outpatient PHARMACOLOGIC VTE PROPHYLAXIS: hEParin CODE STATUS: Full Code EXPECTED DISCHARGE DATE: 08/26/2023 Patient was discussed with Dr. Cruz. Associated attestation - Doni Cruz DO - 08/25/2023 2:02 PM EST I saw and evaluated the patient today. I have reviewed the trainee note and agree. A diagnostic bedside service was provided. I reviewed the interpretation of the diagnostic study. Iagree with the trainee note. I spent a total of 45 minutes coordinating, documenting, and providing care for this patient excluding time spent in the performance of separately billed services. PHYSICAL EXAMINATION: Gen: AAO x 3 NAD Afeb, Pleasant HEENT: NCAT, PERRLA, EOMI, Anicteric Sclera, No Pharyngeal Erythema Neck: Supple wo JVD or Adenopathy, No Bruit Lungs:CTAB No RRW Chest: No S4, +S1/S2, No S4, No Murmurs, No Rubs, No Gallops, No Ectopy Abd: Soft Non Tender, Non Distended, BS+, No HSM, No Rebound, No Rigidity, No Guarding Ext: Wrapped Musc: FROM x 4 Skin: Warm, Dry, Intact without rashes Neuro: Non focal, geospatial information scientist intact, DTR/Motor/Sensory and Strength all WNL Psych: Pleasant * Praful Kelley MD - 08/24/2023 11:59 AM EST Images from the original note were not included. [facility] [id number]/W HOSPITAL COURSE: 48-year-old female with reactive thrombocytosis, chronic diarrhea, chronic LE non-healing ulcers, and iron deficiency anemia initially presenting with generalized weakness and ambulatory dysfunction. ED work-up revealed leukocytosis. Patient was started on fluids, blood cultures were drawn, antibiotics were started, surgery was consulted for the wound debridement, and imaging wasordered. Nutrition and GI was consulted as well due to possible Celiac disease. Heme/Onc consulted concerning possible multiple myeloma. C diff panel and GI pathogen panel negative. UA negative. CXR negative for pneumonia. RPP negative. Celiac Disease Serology negative. INTERVAL HISTORY: Patient was seen ambulating in hallway today with a rolling walker and assistance. Patient indicated she is feeling slightly better today more so than yesterday. She denied any current issues chest pain shortness on breath nausea vomiting issues with urination and endorsed chronicdiarrhea. Patient has dressing for lower extremity ulcers was changed yesterday and will be changedagain today. Objective Physical Exam Most Recent Vital Signs: BP: 93 mmHg/57 mmHg (08/24/23 1119) Pulse: 75 (08/24/23743) Temp: 36.72 C (08/24/23743) Resp: 16 (08/24/23743) SpO2: 99 % (08/24/23743) Constitutional: frail appearing, sitting upright in bed CV: regular rate and rhythm Chest: normal respiratory effort, lungs clear to auscultation bilaterally Abdomen: soft, non-tender Extremities: warm and dry, BLE wrapped in bandages Neuro: alert, oriented to person, place, and time Psych: congruent mood and affect, memory intact Peripheral Line Right Antecubital 22 Gauge (Active) Number of days: 2 STUDIES: Encounter Orders Labs and other studies reviewed with pertinent findings noted below: MRSA+ GI Pathogen panel Yeast+ Wound Culture: proteus mirabilis, bacteriodes fragilis Lab results within last 7 days (see chart for full results) Units 08/24/23 0606 08/23/23 0620 08/22/23 0603 08/21/23 0332 08/20/23 0601 08/19/23 0618 08/18/23 1947 WBC K/uL 14.98* 14.71* 13.89* 17.27* 16.32* 14.97* 14.68* RBC M/uL 4.36 4.29 4.29 4.10 4.18 3.89 4.50 HGB g/dL 12.4 12.2 12.2 11.3* 11.9* 11.3* 12.8 HCT % 36.9 35.9* 35.8* 33.7* 34.6* 32.1* 38.4 PLT K/uL 1,110* 1,142* 1,124* 1,101* 1,147* 1,089* 1,192* Lab results within last 7 days (see chart for full results) Units 08/24/23 0606 08/23/23 0620 08/22/23 0603 08/21/23 0331 08/20/23 0601 08/19/23 2040 08/19/23 0618 08/18/23 1947 Sodium mmol/L 143 141 142 138 141 140 141 135 Potassium mmol/L 3.5 3.6 3.6 3.9 4.1 4.1 3.1* 3.6 Chloride mmol/L 112* 112* 114* 110* 112* 114* 111* 103 CO2 mmol/L 21* 18* 17* 17* 20* 18* 20* 21* BUN mg/dL 2* 2* 3* 4* 4* 5* 5* 9 Creatinine mg/dL 0.3* 0.3* 0.4* 0.4* 0.5 0.5 0.4* 0.5 Glucose mg/dL 98 90 89 101 86 107 94 96 Calcium mg/dL 8.2* 8.0* 8.3* 8.0* 8.3* 8.3* 8.1* 8.7 Magnesium mg/dL -- -- -- -- -- -- 2.2 2.1 Lab results within last 7 days (see chart for full results) Units 08/20/23 1516 08/18/23 1947 Protein g/dL 5.6* 6.3 Bilirubin, Total mg/dL -- 0.2 Alkaline Phosphatase U/L -- 144* AST U/L -- 23 ALT U/L -- 18 Assessment and Plan IMPRESSION : Principal Problem: Generalized weakness Active Problems: Lymphedema Venous stasis ulcers of both lower extremities (HCC) Sore throat Thrombocytosis Celiac disease Malnutrition of moderate degree (HCC) Intermittent complete atrioventricular block (HCC) Anemia due to chronic blood loss Resolved Problems: * No resolved hospital problems. * I have examined the patient and consistent with the dietitian's findings found malnutrition presentof Moderate (08/19/23 140) degree. This is consistent with such due to Inadequate energy intake;Muscle loss (01/13/24 1407). I have also reviewed and agree with the dietitian's plan of care which include Continued oral nutrition supplement (08/23/23 1209). DIFFERENTIAL AND PLAN: Leukocytosis with unknown underlying cause/s in the setting of polymicrobial infection with continued WBC elevation -continue midodrine for soft BP -monitor fever -monitor wbc *Recommendation from ID -D/C pip-tazo and vancomycin -Consider biopsy of wound to rule out pyoderma -Plans for colonoscopy noted -Ampicillin-sulbactam 3g IV q 6 for now Recommendations from Gastroenterology -haplotype for celiac disease (in process) -outpatient follow-up for EGD in 2-3 months with repeat biopsies of esophagus and duodenal, concernEOE -continue gluten free diet Recommendations from Hematology Oncology -myeloproliferative disease panel (in process) -follow-up in etiology clinic after discharge Recommendations from Dermatology -suggestive of pyoderma gangrenosum with punched out ulcers -agree with workup for underlying associated diseases; inflammatory bowel disease, inflammatory arthritis, malignancy, hematological disorders -MALISSA study normal -check SPEP, and antiphospholipid LE ulcers General surgery recommendations -wet to dry dressings on larger wound -Silvadene ointment on small wound -wrap with Kerlix and Ramos wrap -dressing changes twice daily -keep legs elevated as much as possible -follow with wound clinic outpatient Wound care recommendation -add Puracyn to dressing Mobility -PT recommends rolling walker Intermittent complete heart block Recommendations from Cardiology -patient not agreeable to pacemaker -monitor on telemetry -consider Zio patch as an outpatient PHARMACOLOGIC VTE PROPHYLAXIS: hEParin CODE STATUS: Full Code EXPECTED DISCHARGE DATE: No information available Patient was seen with Dr. Cruz. Associated attestation - Doni Cruz DO - 08/24/2023 12:19 PM EST I saw and evaluated the patient today. I have reviewed the trainee note and agree. A total of 75 minutes was spent providing care for this patient on the unit/floor. More than half of the time was spent counseling and coordinating care for the patient. PHYSICAL EXAMINATION: Gen: AAO x 3 NAD Afeb, Pleasant HEENT: NCAT, PERRLA, EOMI, Anicteric Sclera, No Pharyngeal Erythema Neck: Supple wo JVD or Adenopathy, No Bruit Lungs:CTAB No RRW Chest: No S4, +S1/S2, No S4, No Murmurs, No Rubs, No Gallops, No Ectopy Abd: Soft Non Tender, Non Distended, BS+, No HSM, No Rebound, No Rigidity, No Guarding Ext: Wrapped Musc: FROM x 4 Skin: Warm, Dry, Intact without rashes Neuro: Non focal, geospatial information scientist intact, DTR/Motor/Sensory and Strength all WNL Psych: Pleasant * Huong Ruiz RN - 08/24/2023 10:05 AM EST Nursing Critical Care Response Note [address] [id number] Name: Soco Guevara Date: 08/24/2023 Time: 10:05 AM Event Location: [facility], Unit Area: In the role of the Critical Response Nurse I was involved in the care of this patient. Method of notification to the critical care response nurse: Follow up previous notification Reason for notification or follow up: Chart Review Observations/Interventions/Assessment: Chart review done and discussed with primary RN. Patient's VSS, labs reviewed. Outcome/Plan CRN will no longer follow due to BP remaining stable. Please reach out if needed. * Praful Kelley MD - 08/23/2023 1:35 PM EST Images from the original note were not included. [facility] 4B-4015/W HOSPITAL COURSE: 48-year-old female with reactive thrombocytosis, chronic diarrhea, chronic LE non-healing ulcers, and iron deficiency anemia initially presenting with generalized weakness and ambulatory dysfunction. ED work-up revealed leukocytosis. Patient was started on fluids, blood cultures were drawn, antibiotics were started, surgery was consulted for the wound debridement, and imaging wasordered. Nutrition and GI was consulted as well due to possible Celiac disease. Heme/Onc consulted concerning possible multiple myeloma. C diff panel and GI pathogen panel negative. UA negative. CXR negative for pneumonia. RPP negative. Celiac Disease Serology negative. INTERVAL HISTORY: Patient was cooperative sitting at a 45 degree angle in bed. Denied any current concerns. Overnight events noted at 2:30 a.m. on telemetry second-degree heart block. Patient denies chest pain shortness on breath nausea or vomiting, endorses chronic diarrhea. Patient continues to have soft BP at time of exam 86/50. Patient endorsed that initial celiac disease was confirmed through biopsy in the past, and has been exclusively on a gluten free diet since this diagnosis. Objective Physical Exam Most Recent Vital Signs: BP: 90 mmHg/52 mmHg (08/23/23732) Pulse: 67 (08/23/23732) Temp: 37.72 C (08/23/23732) Resp: 18 (08/23/23732) SpO2: 100 % (08/23/23732) Constitutional: frail appearing, lying down initially but able to sit up for exam CV: regular rate and rhythm Chest: normal respiratory effort, lungs clear to auscultation bilaterally Abdomen: soft, non-tender Extremities: warm and dry, BLE wrapped in bandages Neuro: alert, oriented to person, place, and time Psych: congruent mood and affect, memory intact Peripheral Line Right Antecubital 22 Gauge (Active) Number of days: 1 STUDIES: Encounter Orders Labs and other studies reviewed with pertinent findings noted below: No imaging results in the last 24 hours Lab results within last 7 days (see chart for full results) Units 08/23/23 0620 08/22/23 0603 08/21/23 0332 HGB g/dL 12.2 12.2 11.3* HCT % 35.9* 35.8* 33.7* WBC K/uL 14.71* 13.89* 17.27* PLT K/uL 1,142* 1,124* 1,101* Lab results within last 7 days (see chart for full results) Units 08/23/23 0620 08/22/23 0603 08/21/23 0331 Sodium mmol/L 141 142 138 Potassium mmol/L 3.6 3.6 3.9 Chloride mmol/L 112* 114* 110* CO2 mmol/L 18* 17* 17* BUN mg/dL 2* 3* 4* Creatinine mg/dL 0.3* 0.4* 0.4* Intake/Output Summary (Last 24 hours) at 08/23/2023 1408 Last data filed at 08/22/2023 1840 Gross per 24 hour Intake 1232.89 ml Output 300 ml Net 932.89 ml Recent Cultures (2 Weeks) 08/21/2023 08/20/2023 08/19/2023 08/19/2023 08/18/2023 08/18/2023 08/18/2023 05/10/2019 9:27 AM 4:13 PM 1:27 AM 1:22 AM 11:54 PM 7:56 PM 7:47 PM 4:08 PM SPECIMEN DESCRIPTION -- -- -- -- -- -- -- PRESERVED STOOL PRESERVED STOOL CULTURE -- -- -- -- -- -- -- NO AEROMONAS OR PLESIOMONAS ISOLATED STAIN DESCRIPTION -- Occasional Polymorphonuclear leukocytes -- -- -- -- -- -- No organisms seen CULTURE GROWTH -- Few Proteus mirabilis -- -- -- -- -- -- Few Bacteroides fragilis BLOOD CULTURE GROWTH -- -- No growth to date No growth to date -- No growth to date No growth to date -- GASTROINTESTINAL STOOL CULTURE GROWTH Yeast -- -- -- -- -- -- -- QUANT URINE CULTURE GROWTH -- -- -- -- No significant growth -- -- -- Assessment and Plan IMPRESSION : Principal Problem: Generalized weakness Active Problems: Lymphedema Venous stasis ulcers of both lower extremities (HCC) Sore throat Thrombocytosis Celiac disease Malnutrition of moderate degree (HCC) Intermittent complete atrioventricular block (HCC) Anemia due to chronic blood loss Resolved Problems: * No resolved hospital problems. * I have examined the patient and consistent with the dietitian's findings found malnutrition presentof Moderate (08/19/23 140) degree. This is consistent with such due to Inadequate energy intake;Muscle loss (08/19/23 140). I have also reviewed and agree with the dietitian's plan of care which include Continued oral nutrition supplement (08/23/23 1209). DIFFERENTIAL AND PLAN: Leukocytosis with unknown underlying cause/s -continue vancomycin and zosyn -continue midodrine for soft BP -monitor fever -monitor wbc Recommendations from Gastroenterology -haplotype for celiac disease (in process) -outpatient follow-up for EGD in 2-3 months with repeat biopsies of esophagus and duodenal, concernEOE -continue gluten free diet Recommendations from Hematology Oncology -myeloproliferative disease panel (in process) -follow-up in etiology clinic after discharge Recommendations from Dermatology -suggestive of pyoderma gangrenosum with punched out ulcers -agree with workup for underlying associated diseases; inflammatory bowel disease, inflammatory arthritis, malignancy, hematological disorders -MALISSA study normal -check SPEP, and antiphospholipid LE ulcers General surgery recommendations -wet to dry dressings on larger wound -Silvadene ointment on small wound -wrap with Kerlix and Ramos wrap -dressing changes twice daily -keep legs elevated as much as possible -follow with wound clinic outpatient Wound care recommendation -add Puracyn to dressing Mobility -PT recommends rolling walker Intermittent complete heart block Recommendations from Cardiology -patient not agreeable to pacemaker -monitor on telemetry -consider Zio patch as an outpatient PHARMACOLOGIC VTE PROPHYLAXIS: hEParin CODE STATUS: Full Code EXPECTED DISCHARGE DATE: 08/25/2023 Patient was seen with Dr. Cruz. Associated attestation - Doni Cruz DO - 08/23/2023 3:58 PM EST I saw and evaluated the patient today. I have reviewed the trainee note and agree. A total of 75 minutes was spent providing care for this patient on the unit/floor. More than half of the time was spent counseling and coordinating care for the patient. PHYSICAL EXAMINATION: Gen: AAO x 3 NAD Afeb, Pleasant HEENT: NCAT, PERRLA, EOMI, Anicteric Sclera, No Pharyngeal Erythema Neck: Supple wo JVD or Adenopathy, No Bruit Lungs:CTAB No RRW Chest: No S4, +S1/S2, No S4, No Murmurs, No Rubs, No Gallops, No Ectopy Abd: Soft Non Tender, Non Distended, BS+, No HSM, No Rebound, No Rigidity, No Guarding Ext: Wrapped Musc: FROM x 4 Skin: Warm, Dry, Intact without rashes Neuro: Non focal, geospatial information scientist intact, DTR/Motor/Sensory and Strength all WNL Psych: Odd affect * Glory Hammond, PHARM Student - 08/23/2023 8:15 AM EST PHARMACY PHARMACOKINETIC CONSULT [address] [address] Name: Soco Guevara Location: [facility] 4B-4015/W Date: 08/23/2023 Time: 8:15 AM Requesting service: Hospitalists Bacteria being treated:Empiric Sepsis Source of infection: Sepsis Medication(s) being managed: Vancomycin Pharmacokinetic calculations will be performed utilizing [employer] software. Lab information: Lab Results Component Value Date/Time WBC 14.71 (H) 08/23/2023 06:20 AM WBC 13.89 (H) 08/22/2023 06:03 AM WBC 17.27 (H) 08/21/2023 03:32 AM WBC 16.32 (H) 08/20/2023 06:01 AM WBC 14.97 (H) 08/19/2023 06:18 AM WBC 11.05 (H) 05/10/2019 04:06 PM Lab Results Component Value Date/Time BUN 2 (L) 08/23/2023 06:20 AM BUN 3 (L) 08/22/2023 06:03 AM BUN 4 (L) 08/21/2023 03:31 AM BUN 4 (L) 08/20/2023 06:01 AM BUN 5 (L) 08/19/2023 08:40 PM Lab Results Component Value Date/Time CREAT 0.3 (L) 08/23/2023 06:20 AM CREAT 0.4 (L) 08/22/2023 06:03 AM CREAT 0.4 (L) 08/21/2023 03:31 AM CREAT 0.5 08/20/2023 06:01 AM CREAT 0.5 08/19/2023 08:40 PM ANTIMICROBIALS GIVEN (last 28 hours) Date/Time Action Medication Dose Rate 08/23/23 0303 New Bag Vancomycin (Vancocin) 1000 mg in NSS 250 mL ivpb LOCKED DOSE 1,000 mg 275 mL/hr 08/23/23 0300 New Bag Piperacillin-Tazobactam (Zosyn) 4.5 g in 100 mL NSS ivpb (FOUR hour infusion) 4.5 g 25 mL/hr 08/22/23 1737 New Bag Piperacillin-Tazobactam (Zosyn) 4.5 g in 100 mL NSS ivpb (FOUR hour infusion) 4.5 g 25 mL/hr 08/22/23 1736 New Bag Vancomycin (Vancocin) 1000 mg in NSS 250 mL ivpb LOCKED DOSE 1,000 mg 275 mL/hr 08/22/23 1010 New Bag Piperacillin-Tazobactam (Zosyn) 4.5 g in 100 mL NSS ivpb (FOUR hour infusion) 4.5 g 25 mL/hr 08/22/23 1010 New Bag Vancomycin (Vancocin) 1000 mg in NSS 250 mL ivpb LOCKED DOSE 1,000 mg 275 mL/hr Wt Readings from Last 1 Encounters: 08/23/23 53 kg (116 lb 13.5 oz) Levels to date: Lab Results Component Value Date/Time VANCORANDOM 20.3 08/23/2023 06:20 AM VANCORANDOM 16.0 08/22/2023 06:03 AM VANCORANDOM 12.3 08/20/2023 06:01 AM Impression: Soco Guevara is a/an 48 year old female receiving vancomycin therapy. The pharmacokinetic target for therapy is AUC24,SS (range) 400-600mg/L.hr Assessment and Plan: Analysis of the most recent level(s) using [employer] gives the following patient-specific pharmacokinetic parameters: CL: 5.86 L/hr V: 36.8 L T1/2: 4.59 hours Using these values, the current regimen of Vancomycin 1000 mg IV every 8 hours is predicted to result in a steady-state trough of 12.3 mg/L and AUC24 of 512 mg/L.hr. At this time we recommend a regimen of 1000 mg IV every 8 hours, which is predicted to result in a steady-state trough of 12.3 mg/L and AUC24 of 512 mg/L.hr. Recommendations: - Vancomycin 1000 mg IV every 8 hours - Obtain Vancomycin level 08/25/2023 with am labs - Continue to monitor serum creatinine Obtain next vancomycin level 08/25/2023. Pharmacy will continue to follow and dose as appropriate by renal function, culture results, infectious disease input, and overall clinical status. Contact the Pharmacy at extension [phone] if there are any questions. * Huong Ruiz RN - 08/22/2023 6:13 PM EST Nursing Critical Care Response Note [address] [address] Name: Soco Guevara Date: 08/22/2023 Time: 6:13 PM Event Location: [facility], Unit Area: In the role of the Critical Response Nurse I was involved in the care of this patient. Method of notification to the critical care response nurse: Follow up previous notification Reason for notification or follow up: Chart Review Observations/Interventions/Assessment: Chart review done, patient remains stable but hypotensive. Continues to be on PO midodrine. Outcome/Plan Will continue to follow patient. Please reach out to CRN as needed. * Disha Zhao DO - 08/22/2023 1:04 PM EST Images from the original note were not included. [facility] 4B-4015/W HOSPITAL COURSE: 48-year-old female with reactive thrombocytosis, chronic diarrhea, chronic LE non-healing ulcers, and iron deficiency anemia initially presenting with generalized weakness and ambulatory dysfunction. ED work-up revealed leukocytosis. Patient was started on fluids, blood cultures were drawn, antibiotics were started, surgery was consulted for the wound debridement, and imaging wasordered. Nutrition and GI was consulted as well due to possible Celiac disease. Heme/Onc consulted concerning possible multiple myeloma. C diff panel and GI pathogen panel negative. UA negative. CXR negative for pneumonia. RPP negative. Celiac Disease Serology negative. INTERVAL HISTORY: Overnight, patient's IV was found to be leaking around 2200 and IV was not able to be placed until around 0100. Patient continues to be hypotensive, with low- grade fever. Patient states she is feeling well overall but reports continued bilateral lower extremity pain with palpation and ambulation. Denies chest pain, shortness of breath, N/V. Objective Physical Exam Most Recent Vital Signs: BP: 88 mmHg/57 mmHg (08/22/231213) Pulse: 72 (08/22/231213) Temp: 37.39 C (08/22/23801) Resp: 16 (08/22/23801) SpO2: 98 % (08/22/231213) Constitutional: ill-appearing, lying down initially but able to sit up to eat breakfast CV: regular rate and rhythm Chest: normal respiratory effort, lungs clear to auscultation bilaterally Abdomen: soft, non-tender, improved distension from yesterday Extremities: warm and dry, BLE wrapped in bandages Neuro: alert, oriented to person, place, and time Psych: congruent mood and affect, memory intact Peripheral Line Right Antecubital 22 Gauge (Active) Number of days: 0 STUDIES: Encounter Orders Labs and other studies reviewed with pertinent findings noted below: Recent Results (from the past 24 hour(s)) ECHO, COMPLETE (2D), TRANS-THORACIC Collection Time: 08/21/23 2:35 PM Result Value Ref Range LEFT VENTRICULAR EJECTION FRACTION 55 % CBC Collection Time: 08/22/23 6:03 AM Result Value Ref Range WBC 13.89 (H) 4.00 - 10.80 K/uL RBC 4.29 3.85 - 5.15 M/uL HGB 12.2 12.0 - 15.3 g/dL HCT 35.8 (L) 36.0 - 45.2 % MCV 83.4 81.5 - 97.5 fL MCH 28.4 27.0 - 34.0 pg MCHC 34.1 32.0 - 36.0 g/dL RDW 16.9 11.5 - 15.5 % PLT 1,124 (HH) 140 - 400 K/uL MPV 8.7 6.6 - 11.1 fL nRBCs 0 <=0 /100 WBCs BASIC METABOLIC PANEL Collection Time: 08/22/23 6:03 AM Result Value Ref Range BUN 3 (L) 6 - 20 mg/dL Creatinine 0.4 (L) 0.5 - 1.0 mg/dL Estimated Glomerular Filtration Rate >90 >=60 mL/min Sodium 142 135 - 146 mmol/L Potassium 3.6 3.5 - 5.1 mmol/L Chloride 114 (H) 98 - 107 mmol/L CO2 17 (L) 22 - 32 mmol/L Anion Gap 11 7 - 15 mmol/L Glucose 89 70 - 120 mg/dL Calcium 8.3 (L) 8.4 - 10.2 mg/dL VANCOMYCIN RANDOM Collection Time: 08/22/23 6:03 AM Result Value Ref Range Vancomycin Random 16.0 10.0 - 40.0 ug/mL No imaging results in the last 24 hours Susceptibility data from last 90 days. Collected Specimen Info Organism 08/20/23 Deep Wound from Leg, Right Non lactose fermenting gram negative bacilli 08/21/2023 ECHO Interpretation Summary: The qualitative LV ejection fraction is 55-59% (normal). The right ventricular cavity size is normal. The right ventricular systolic function is normal. Mild aortic valve regurgitation is present. Mild tricuspid regurgitation is present. A trivial posterior loculated pericardial effusion is present Assessment and Plan IMPRESSION : Principal Problem: Generalized weakness Active Problems: Lymphedema Venous stasis ulcers of both lower extremities (HCC) Sore throat Thrombocytosis Celiac disease Malnutrition of moderate degree (HCC) Intermittent complete atrioventricular block (HCC) Anemia due to chronic blood loss Resolved Problems: * No resolved hospital problems. * I have examined the patient and consistent with the dietitian's findings found malnutrition presentof Moderate (08/19/23 1407) degree. This is consistent with such due to Inadequate energy intake;Muscle loss (08/19/23 1407). I have also reviewed and agree with the dietitian's plan of care which include . DIFFERENTIAL AND PLAN: Leukocytosis- Improving -Continue Abx -Consider discharge tomorrow if patient remains hemodynamically stable and leukocytosis continues to improve, can discharge on doxycycline and cefdinir -Pending wound culture sensitivities -Reached out to Derm following Gen Surg recommendations -Further work-up to be performed outpatient, including Holter monitor EGD in 2-3 months with GI, concern for EOE F/u Heme/Onc for leukocytosis F/U wound clinic PHARMACOLOGIC VTE PROPHYLAXIS: hEParin CODE STATUS: Full Code EXPECTED DISCHARGE DATE: 08/23/2023 Patient was seen, was examined, and was discussed with Dr. Magali Cerrato MD. Disha Zhao DO Associated attestation - Magali Cerrato MD - 08/22/2023 1:53 PM EST I saw and evaluated the patient today. I have reviewed the trainee note and agree. I saw and evaluated the patient today. I have reviewed the trainee note and agree. 48 yo Female [employer] pt with ANASTASIA, ?Celiac Disease, Reactive Thrombocytosis, Chronic Diarrhea, ? Multiple Myeloma, Chronic LE non healing bilateral ulcers p/w Generalized weakness and ambulatory dysfunction Noted to be febrile and Hypotensive Labs: Leukocytosis, Thrombocytosis CT abdomen/ pelvis: Fluid-filled small and large bowel. Correlate with any history of diarrheal illness. No significant bowel wall thickening. Mild mesenteric lymphadenopathy and mesenteric fat stranding overall similar to prior exam on 12/19/2022. Findings could be related to mild enteritis. Severe Sepsis possible source could be LE Infected ulcers. On exam pt has deep ulcers on bilateral posterior leg appears grossly infected now Improving with wound care. Pictures scanned into chart - Continue Vancomycin to Zosyn - MRSA screen positive. Blood cultures are negative. - Monitor fever curve and leukocytosis - Appreciate wound care recommendations - MALISSA studies normal. Venous doppler negative for DVT - Attempt to contact Dermatology at [facility] [place] to see if there is suspicion for Pyoderma gangrenosum - Celiac serology came back negative. Consulted GI. Ordered for HLA typing for Celiac disease. If negative, plan to work up non celiac enteropathy. C.diff negative. agreeable to repeat Endoscopy. OP. - Continue Gluten free diet. - Low folate. Started on folate tabs - Having Intermittent CHB. Non in the past 48 hours. Appreciate EP evaluation. Pt not keen to pursue pacemaker. Doesn't have Insurance to do Zio patch - Reviewed SPEP/ UPEP/ Light chains/ Immunoglobulin. Appreciate Hematology - at bedside updated - PT/ OT/ CM consulted Time spent: 55 Mins. More than half with patient and remaining time for reviewing labs, medial records, coordination of care with nurses and specialities. Ray elements of the counseling and coordination of care included detail of treatment plan w/ pt and caregivers, content of pt and/or family discu ssions, ray tests or procedures reviewed/ordered in [facility] rec, outcomes of discussions with other healthcare providers * Fritz Siddiqui MD - 08/22/2023 10:29 AM EST PROGRESS NOTE - General Surgery [facility] [address] Name: Soco Guevara Location: [facility] 4B-4015/W Date: 08/22/2023 Time: 10:29 AM DIAGNOSIS: Bilateral lower extremity wounds PROCEDURE: none SUBJECTIVE: Soco Guevara is doing alright today. Pain is well controlled. Says that wound team came and changed her dressings in the evening yesterday. She notes that she is still having loose bowel movements and intermittent abdominal pain. OBJECTIVE: Most Recent Vital Signs: BP: 93 mmHg/52 mmHg (08/22/23801) Pulse: 66 (08/22/23801) Temp: 37.39 C (08/22/23801) Resp: 16 (08/22/23801) SpO2: 100 % (08/22/23801) Vital Signs Last 24 Hours: Systolic BP: Most Recent Systolic BP Av.3 mmHg Min: 87 mmHg Max: 99 mmHg Temperature: Most Recent Temperature Av.4 C Min: 37.39 C Max: 37.39 C Pulse: Pulse Av.3 Min: 63 Max: 78 Respirations: Resp Av.5 Min: 16 Max: 32 SpO2: SpO2 Av % Min: 100 % Max: 100 % In / Out Past 24 Hrs: Intake/Output Summary (Last 24 hours) at 08/22/2023 1029 Last data filed at 08/22/2023 0906 Gross per 24 hour Intake 1918.22 ml Output -- Net 1918.22 ml Physical Exam: Constitutional: alert, no acute distress HEENT: normal: normocephalic, atraumatic CV: distally perfused Chest: normal respiratory effort Abdomen: soft, nondistended Neuro: alert, oriented to person, place, and time Extremities: wrapped with dressing and RAMOS bandages which were not taken down today. No edema abovethe level of the bandages and no new visible wounds higher on legs. LABS: Labs reviewed as indicated below: CBC Lab Results Component Value Date/Time WBC 13.89 (H) 08/22/2023 06:03 AM WBC 11.05 (H) 05/10/2019 04:06 PM HGB 12.2 08/22/2023 06:03 AM HGB 10.6 (L) 05/10/2019 04:06 PM HCT 35.8 (L) 08/22/2023 06:03 AM HCT 40.0 05/10/2019 04:06 PM PLT 1,124 (HH) 08/22/2023 06:03 AM PLT 1,124 (HH) 05/10/2019 04:06 PM WBC Lab Results Component Value Date/Time WBC 13.89 (H) 08/22/2023 06:03 AM WBC 17.27 (H) 08/21/2023 03:32 AM WBC 16.32 (H) 08/20/2023 06:01 AM WBC 11.05 (H) 05/10/2019 04:06 PM BMP Lab Results Component Value Date/Time NA 142 08/22/2023 06:03 AM POTASSIUM 3.6 08/22/2023 06:03 AM CL 114 (H) 08/22/2023 06:03 AM CO2 17 (L) 08/22/2023 06:03 AM BUN 3 (L) 08/22/2023 06:03 AM CREAT 0.4 (L) 08/22/2023 06:03 AM CA 8.3 (L) 08/22/2023 06:03 AM Tissue transglutaminase 01/20/23 7.9 (above 7 abnormal) 08/20/23 0.9 IMAGING: none new IMPRESSION: Principal Problem: Generalized weakness (POA: Yes) Active Problems: Lymphedema (POA: Yes) Venous stasis ulcers of both lower extremities (HCC) (POA: Yes) Sore throat (POA: Yes) Thrombocytosis (POA: Yes) Celiac disease (POA: Yes) Malnutrition of moderate degree (HCC) (POA: Unknown) Intermittent complete atrioventricular block (HCC) (POA: Unknown) Anemia due to chronic blood loss (POA: Unknown) Resolved Problems: * No resolved hospital problems. * POA = Present On Admission Soco Guevara is a 48 year old female with bilateral lower extremity wounds in the setting of chronic lower extremity swelling. PLAN: -Wounds could be consistent with the chronic LE swelling however they do not fit in a vascular pattern either venous or arterial. They do look somewhat consistent with pyoderma gangrenosum and patient does have a presumed diagnosis of celiac, however she could have inflammatory bowel disease. Agreewith workup for IBD and possibly a repeat lower endoscopy with ileal biopsies. -Recommend discussing the wound images with dermatology team to obtain their input on wound character. General surgery continues to be available to assist. Patient examined and discussed w/ Dr. Skinny Siddiqui MD 08/22/2023 Associated attestation - Melissa Babb DO - 08/22/2023 10:35 AM EST I saw and evaluated the patient today. I have reviewed the trainee note and agree. * Camron Amaya, [facility] - 08/22/2023 7:47 AM EST PHARMACY PHARMACOKINETIC CONSULT [address] [address] Name: Soco Guevara Location: [facility] [id number] Date: 08/22/2023 Time: 7:47 AM Requesting service: Hospitalist Bacteria being treated: Empiric Source of infection: Sepsis Medication(s) being managed: Vancomycin Pharmacokinetic calculations will be performed utilizing [employer] software. Lab information: Lab Results Component Value Date/Time WBC 13.89 (H) 08/22/2023 06:03 AM WBC 17.27 (H) 08/21/2023 03:32 AM WBC 16.32 (H) 08/20/2023 06:01 AM WBC 14.97 (H) 08/19/2023 06:18 AM WBC 14.68 (H) 08/18/2023 07:47 PM WBC 11.05 (H) 05/10/2019 04:06 PM Lab Results Component Value Date/Time BUN 3 (L) 08/22/2023 06:03 AM BUN 4 (L) 08/21/2023 03:31 AM BUN 4 (L) 08/20/2023 06:01 AM BUN 5 (L) 08/19/2023 08:40 PM BUN 5 (L) 08/19/2023 06:18 AM Lab Results Component Value Date/Time CREAT 0.4 (L) 08/22/2023 06:03 AM CREAT 0.4 (L) 08/21/2023 03:31 AM CREAT 0.5 08/20/2023 06:01 AM CREAT 0.5 08/19/2023 08:40 PM CREAT 0.4 (L) 08/19/2023 06:18 AM ANTIMICROBIALS GIVEN (last 28 hours) Date/Time Action Medication Dose Rate 08/21/23 2135 New Bag Piperacillin-Tazobactam (Zosyn) 4.5 g in 100 mL NSS ivpb (FOUR hour infusion) 4.5 g 25 mL/hr 08/21/23 2133 New Bag Vancomycin (Vancocin) 1250 mg in NSS 250 mL ivpb 1,250 mg 183.33 mL/hr 08/21/23 1501 New Bag Piperacillin-Tazobactam (Zosyn) 4.5 g in 100 mL NSS ivpb (FOUR hour infusion) 4.5 g 25 mL/hr 08/21/23 0835 New Bag Vancomycin (Vancocin) 1250 mg in NSS 250 mL ivpb 1,250 mg 183.33 mL/hr 08/21/23 0641 New Bag Piperacillin-Tazobactam (Zosyn) 4.5 g in 100 mL NSS ivpb (FOUR hour infusion) 4.5 g 25 mL/hr Wt Readings from Last 1 Encounters: 08/22/23 53.8 kg (118 lb 9.7 oz) Levels to date: Lab Results Component Value Date/Time VANCORANDOM 16.0 08/22/2023 06:03 AM VANCORANDOM 12.3 08/20/2023 06:01 AM Impression: Soco Guevara is a/an 48 year old female receiving vancomycin therapy. The pharmacokinetic target for therapy is AUC24,SS (range) 400-600mg/L.hr Assessment and Plan: Analysis of the most recent level(s) using [employer] gives the following patient-specific pharmacokinetic parameters: CL: 5.28 L/hr V: 35.8 L T1/2: 5.25 hours Using these values, the current regimen of Vancomycin 1250 mg IV every 12 hours is predicted to result in a steady-state trough of 9.6 mg/L and AUC24 of 473 mg/L.hr. At this time we recommend a regimen of 1000 mg IV every 8 hours, which is predicted to result in a steady-state trough of 14.1 mg/L and AUC24 of 565 mg/L.hr. Obtain random level on 08/23 at 06:00. Pharmacy will continue to follow and dose as appropriate by renal function, culture results, infectious disease input, and overall clinical status. Contact the Pharmacy at extension [phone] if there are any questions. * Disha Zhao DO - 08/21/2023 11:22 AM EST Images from the original note were not included. [facility] [id number]/W HOSPITAL COURSE: 48-year-old female with a past medical history of celiac disease, reactive thrombocytosis, chronic diarrhea, possible multiple myeloma, chronic lower extremity nonhealing bilateral ulcers is admitted for generalized weakness and ambulatory dysfunction. Patient was started on fluids, blood cultures were drawn, antibiotics were started, surgery was consulted for the wound debridement, and imaging was ordered. Nutrition and GI was consulted as well due to recent Celiac disease diagnosis. INTERVAL HISTORY: Overnight, patient with lethargy and low blood pressure. Patient was placed in trendelenburg and given 5 mg midodrine with only minimal improvement of blood pressure. IVF was then increased to 125 mL/hour. Patient's respiratory rate was also at 40, so lactate, VBG and D-Dimer were ordered. Patient reports continued pain with palpation and ambulation of lower extremities. Also reports continued loose bowel movements and bloating. Patient was offered stronger pain medication but patient says she is ok with tylenol at this time. Objective Physical Exam Most Recent Vital Signs: BP: 87 mmHg/51 mmHg (08/21/231130) Pulse: 75 (08/21/231130) Temp: 37.61 C (08/21/23 0155) Resp: 32 (08/21/231130) SpO2: 100 % (08/21/231130) Constitutional: no acute distress, sitting upright CV: regular rate and rhythm Chest: normal respiratory effort, lungs clear to auscultation bilaterally Abdomen: +distended, +mild generalized tenderness Extremities: warm and dry Neuro: alert, oriented to person, place, and time Psych: congruent mood and affect, memory intact Peripheral Line Left;Lower Arm 20 Gauge (Active) Number of days: 2 STUDIES: Encounter Orders Labs and other studies reviewed with pertinent findings noted below: Recent Results (from the past 24 hour(s)) SERUM FREE LIGHT CHAINS Collection Time: 08/20/23 3:16 PM Result Value Ref Range [place] Free Light Chains, Serum 31.58 (H) 3.30 - 19.40 mg/L [place] Free Light Chains, Serum 38.47 (H) 5.71 - 26.30 mg/L [place] Lambda Free Light Chains Ratio 0.82 0.26 - 1.65 IMMUNOGLOBULIN QUANTITATIVE Collection Time: 08/20/23 3:16 PM Result Value Ref Range IgG 915 700 - 1,600 mg/dL IgA 315 70 - 400 mg/dL IgM 61 40 - 230 mg/dL FERRITIN Collection Time: 08/20/23 3:16 PM Result Value Ref Range Ferritin 45 13 - 150 ng/mL VITAMIN B12 Collection Time: 08/20/23 3:16 PM Result Value Ref Range Vitamin B12 540 232 - 1,245 pg/mL FOLIC ACID Collection Time: 08/20/23 3:16 PM Result Value Ref Range Folic Acid 3.7 (L) >4.5 ng/mL CULTURE, WOUND, DEEP, AEROBIC AND ANAEROBIC Collection Time: 08/20/23 4:13 PM Result Value Ref Range Stain Description Occasional Polymorphonuclear leukocytes Stain Description No organisms seen D-DIMER Collection Time: 08/21/23 3:31 AM Result Value Ref Range D-Dimer 0.80 (H) <0.50 ug/mL FEU BLOOD GAS, VENOUS Collection Time: 08/21/23 3:31 AM Result Value Ref Range Temperature 37.0 C pH, Venous 7.410 7.320 - 7.430 units pCO2, Venous 29.6 (L) 40.0 - 60.0 mmHg pO2, Venous 61.3 (H) 25.0 - 50.0 mmHg Base Excess, Venous -4.8 (L) -2.0 - 2.0 mmol/L Hemoglobin, Whole Blood 11.4 (L) 12.0 - 15.3 g/dL Oxyhemoglobin, Venous 88.4 (H) 40.0 - 85.0 % total Hgb Carboxyhemoglobin, Whole Blood 1.0 <=1.5 % total Hgb Methemoglobin, Whole Blood 0.9 <=1.5 % total Hgb Reduced Hemoglobin, Venous 9.7 % total Hgb O2 Content, Venous 14.2 7.0 - 18.0 %vol Bicarbonate, Whole Blood 18.4 (L) 23.0 - 31.0 mmol/L LACTATE Collection Time: 08/21/23 3:31 AM Result Value Ref Range Lactate 1.7 0.4 - 2.0 mmol/L BASIC METABOLIC PANEL Collection Time: 08/21/23 3:31 AM Result Value Ref Range BUN 4 (L) 6 - 20 mg/dL Creatinine 0.4 (L) 0.5 - 1.0 mg/dL Estimated Glomerular Filtration Rate >90 >=60 mL/min Sodium 138 135 - 146 mmol/L Potassium 3.9 3.5 - 5.1 mmol/L Chloride 110 (H) 98 - 107 mmol/L CO2 17 (L) 22 - 32 mmol/L Anion Gap 11 7 - 15 mmol/L Glucose 101 70 - 120 mg/dL Calcium 8.0 (L) 8.4 - 10.2 mg/dL CBC Collection Time: 08/21/23 3:32 AM Result Value Ref Range WBC 17.27 (H) 4.00 - 10.80 K/uL RBC 4.10 3.85 - 5.15 M/uL HGB 11.3 (L) 12.0 - 15.3 g/dL HCT 33.7 (L) 36.0 - 45.2 % MCV 82.2 81.5 - 97.5 fL MCH 27.6 27.0 - 34.0 pg MCHC 33.5 32.0 - 36.0 g/dL RDW 16.3 11.5 - 15.5 % PLT 1,101 (HH) 140 - 400 K/uL MPV 8.5 6.6 - 11.1 fL nRBCs 0 <=0 /100 WBCs CLOSTRIDIUM DIFFICILE, PCR Collection Time: 08/21/23 9:27 AM Result Value Ref Range Stool Consistency Liquid Clostridium difficile Result Negative Negative. No C. difficile toxin B gene DNA detected by PCR (Amplified Probe). No imaging results in the last 24 hours No results found for the last 90 days. Assessment and Plan IMPRESSION : Principal Problem: Generalized weakness Active Problems: Lymphedema Venous stasis ulcers of both lower extremities (HCC) Sore throat Thrombocytosis Celiac disease Malnutrition of moderate degree (HCC) Intermittent complete atrioventricular block (HCC) Resolved Problems: * No resolved hospital problems. * I have examined the patient and consistent with the dietitian's findings found malnutrition presentof Moderate (08/19/23 1407) degree. This is consistent with such due to Inadequate energy intake;Muscle loss (08/19/23 1407). I have also reviewed and agree with the dietitian's plan of care which include . DIFFERENTIAL AND PLAN: WBC continues to rise despite patient being on vanc and zosyn. +MRSA. C diff negative. UA negative.Blood cultures NGTD. Wound culture with no organisms seen. Awaiting further results. Continued low blood pressures may be due to combination of patient's current nutrition status and infectious process. Concern for fluid overload. -Hold off on additional fluid boluses -Continue with Zosyn, Vancomycin -Continue wound care -Continue with gluten free diet -Pending GI Pathogen Panel -Pending Celiac Disease Serology -Pending GI consult PHARMACOLOGIC VTE PROPHYLAXIS: hEParin CODE STATUS: Full Code EXPECTED DISCHARGE DATE: 08/22/2023 Patient was seen, was examined, and was discussed with Dr. Magali Cerrato MD. Disha Zhao DO Associated attestation - Magali Cerrato MD - 08/21/2023 2:33 PM EST I saw and evaluated the patient today. I have reviewed the trainee note and agree. 48 yo Female Cheondoism pt with ANASTASIA, ?Celiac Disease, Reactive Thrombocytosis, Chronic Diarrhea, ? Multiple Myeloma, Chronic LE non healing bilateral ulcers p/w Generalized weakness and ambulatory dysfunction Noted to be febrile and Hypotensive Labs: Leukocytosis, Thrombocytosis CT abdomen/ pelvis: Fluid-filled small and large bowel. Correlate with any history of diarrheal illness. No significant bowel wall thickening. Mild mesenteric lymphadenopathy and mesenteric fat stranding overall similar to prior exam on 12/19/2022. Findings could be related to mild enteritis. Severe Sepsis possible source could be LE Infected ulcers. On exam pt has deep ulcers on bilateral posterior leg appears grossly infected draining foul smelling discharge. Pictures scanned into chart - Continue Vancomycin to Zosyn - MRSA screen positive. Blood cultures are negative. - Monitor fever curve and leukocytosis - Appreciate Surgery evaluation. "Wet to dry dressings on larger wounds. Silvadene ointment on small wounds. Wrap with Kerlix and Ramos wrap. Dressing changes BID" - Obtain MALISSA - Venous doppler negative for DVT - Wound care to see pt - Celiac serology came back negative. Consulted GI. Ordered for HLA typing for Celiac disease. If negative, plan to work up non celiac enteropathy. C.diff negative - Continue Gluten free diet. - Low folate. Started on folate tabs - Having Intermittent CHB. Non in the past 24 hours. Appreciate EP evaluation. Rec Holter on discharge. No insurance to cover for Zio patch. Also pt not keen to pursue pacemaker - Reviewed SPEP/ UPEP/ Light chains/ Immunoglobulin. Appreciate Hematology - at bedside updated - PT/ OT/ CM consulted Time spent: 55 Mins. More than half with patient and remaining time for reviewing labs, medial records, coordination of care with nurses and specialities. Ray elements of the counseling and coordination of care included detail of treatment plan w/ pt and caregivers, content of pt and/or family discu ssions, ray tests or procedures reviewed/ordered in med rec, outcomes of discussions with other healthcare providers * Jensen Hamilton MD - 08/20/2023 12:03 PM EST Images from the original note were not included. [facility] [id number]/W HOSPITAL COURSE: 48-year-old female with a past medical history of celiac disease, reactive thrombocytosis, chronic diarrhea, possible multiple myeloma, chronic lower extremity nonhealing bilateral ulcers is admitted for generalized weakness and ambulatory dysfunction. Patient was started on fluids, blood cultures were drawn, antibiotics were started, surgery was consulted for the wound debridement, and imaging was ordered. INTERVAL HISTORY: Overnight patient has no acute complaints. States she is doing well. Continues to have loose bowel movements. Afebrile overnight. White blood cell count did increase to 16.32. MRSA positive. Objective Physical Exam Most Recent Vital Signs: BP: 97 mmHg/63 mmHg (08/20/23 1158) Pulse: 79 (08/20/23 1158) Temp: 37.72 C (08/20/23 115) Resp: 18 (08/20/231157) SpO2: 99 % (08/20/23 115) Constitutional: no acute distress CV: normal rate and rhythm, no murmur, gallops or rub Chest: normal respiratory effort, lungs clear to auscultation and percussion Abdomen: normal: soft, bowel sounds normal, no masses, tenderness or organomegaly Extremities: no clubbing, cyanosis, or edema, otherwise grossly normal, warm, and dry Neuro: alert, oriented to person, place, and time, normal mental status exam Psych: normal mood and affect, nonsuicidal, judgement normal, memory normal Peripheral Line Left Antecubital 20 Gauge (Active) Number of days: 2 Peripheral Line Left;Lower Arm 20 Gauge (Active) Number of days: 1 STUDIES: Encounter Orders Labs and other studies reviewed with pertinent findings noted below: Recent Results (from the past 24 hour(s)) BASIC METABOLIC PANEL Collection Time: 08/19/23 8:40 PM Result Value Ref Range BUN 5 (L) 6 - 20 mg/dL Creatinine 0.5 0.5 - 1.0 mg/dL Estimated Glomerular Filtration Rate >90 >=60 mL/min Sodium 140 135 - 146 mmol/L Potassium 4.1 3.5 - 5.1 mmol/L Chloride 114 (H) 98 - 107 mmol/L CO2 18 (L) 22 - 32 mmol/L Anion Gap 8 7 - 15 mmol/L Glucose 107 70 - 120 mg/dL Calcium 8.3 (L) 8.4 - 10.2 mg/dL VANCOMYCIN RANDOM Collection Time: 08/20/23 6:01 AM Result Value Ref Range Vancomycin Random 12.3 10.0 - 40.0 ug/mL CBC Collection Time: 08/20/23 6:01 AM Result Value Ref Range WBC 16.32 (H) 4.00 - 10.80 K/uL RBC 4.18 3.85 - 5.15 M/uL HGB 11.9 (L) 12.0 - 15.3 g/dL HCT 34.6 (L) 36.0 - 45.2 % MCV 82.8 81.5 - 97.5 fL MCH 28.5 27.0 - 34.0 pg MCHC 34.4 32.0 - 36.0 g/dL RDW 16.8 11.5 - 15.5 % PLT 1,147 (HH) 140 - 400 K/uL MPV 8.8 6.6 - 11.1 fL nRBCs 0 <=0 /100 WBCs BASIC METABOLIC PANEL Collection Time: 08/20/23 6:01 AM Result Value Ref Range BUN 4 (L) 6 - 20 mg/dL Creatinine 0.5 0.5 - 1.0 mg/dL Estimated Glomerular Filtration Rate >90 >=60 mL/min Sodium 141 135 - 146 mmol/L Potassium 4.1 3.5 - 5.1 mmol/L Chloride 112 (H) 98 - 107 mmol/L CO2 20 (L) 22 - 32 mmol/L Anion Gap 9 7 - 15 mmol/L Glucose 86 70 - 120 mg/dL Calcium 8.3 (L) 8.4 - 10.2 mg/dL No imaging results in the last 24 hours Assessment and Plan IMPRESSION : Principal Problem: Generalized weakness Active Problems: Lymphedema Venous stasis ulcers of both lower extremities (HCC) Sore throat Thrombocytosis Celiac disease Malnutrition of moderate degree (HCC) Intermittent complete atrioventricular block (HCC) Resolved Problems: * No resolved hospital problems. * I have examined the patient and consistent with the dietitian's findings found malnutrition presentof Moderate (08/19/23 1407) degree. This is consistent with such due to Inadequate energy intake;Muscle loss (08/19/23 1407). I have also reviewed and agree with the dietitian's plan of care which include . DIFFERENTIAL AND PLAN: 48-year-old female with a past medical history of celiac disease, reactive thrombocytosis, chronic diarrhea, possible multiple myeloma, chronic lower extremity nonhealing bilateral ulcers is admittedfor generalized weakness and ambulatory dysfunction. While patient was afebrile overnight, her white blood cell count did increase overnight despite being on vancomycin Zosyn. Her blood pressure was volatile as it increased in decreased overnight. CT abdomen pelvis was consistent with previous imaging of the abdomen with space in her intestine. Will continue on antibiotics and monitor vitals. - Continue abx - Continue Midodrine - Monitor vitals - AM Labs - Continue fluids - Monitor I/Os PHARMACOLOGIC VTE PROPHYLAXIS: hEParin CODE STATUS: Full Code EXPECTED DISCHARGE DATE: 08/22/2023 Patient was seen, was examined, and was discussed with Dr. Magali Cerrato MD. Associated attestation - Magali Cerrato MD - 08/20/2023 3:08 PM EST I saw and evaluated the patient today. I have reviewed the trainee note and agree. 48 yo Female [place] pt with ANASTASIA, Celiac Disease, Reactive Thrombocytosis, Chronic Diarrhea, ? Multiple Myeloma, Chronic LE non healing bilateral ulcers p/w Generalized weakness and ambulatory dysfunction Noted to be febrile and Hypotensive Labs: Leukocytosis, Thrombocytosis CT abdomen/ pelvis: Fluid-filled small and large bowel. Correlate with any history of diarrheal illness. No significant bowel wall thickening. Mild mesenteric lymphadenopathy and mesenteric fat stranding overall similar to prior exam on 12/19/2022. Findings could be related to mild enteritis. Severe Sepsis possible source could be LE Infected ulcers On exam pt has deep ulcers on bilateral posterior leg appears grossly infected draining foul smelling discharge. Pictures scanned into chart - Continue Vancomycin to Zosyn - MRSA screen positive. Blood cultures are negative. - Monitor fever curve and leukocytosis - Appreciate Surgery evaluation. "Wet to dry dressings on larger wounds. Silvadene ointment on small wounds. Wrap with Kerlix and Ramos wrap. Dressing changes BID" - Obtain Venous doppler and MALISSA - Gluten free diet. Pt appears mal nurished with albumin: 2.8 - Check tTG, Ferritin, B12, Folate. Stool studies. GI consult - Having Intermittent CHB. Appreciate EP evaluation. - Check SPEP/ UPEP/ Light chains/ Immunoglobulin. Consulted Hematology - at bedside updated - PT/ OT/ CM consulted Time spent: 55 Mins. More than half with patient and remaining time for reviewing labs, medial records, coordination of care with nurses and specialities. Ray elements of the counseling and coordination of care included detail of treatment plan w/ pt and caregivers, content of pt and/or family discu ssions, ray tests or procedures reviewed/ordered in med rec, outcomes of discussions with other healthcare providers * Camron Amaya, [facility] - 08/20/2023 7:09 AM EST PHARMACY PHARMACOKINETIC CONSULT [address] [address] Name: Soco Guevara Location: [place] [id number]/W Date: 08/20/2023 Time: 7:09 AM Requesting service: Hospitalist Bacteria being treated: Empiric Source of infection: Sepsis Medication(s) being managed: Vancomycin Pharmacokinetic calculations will be performed utilizing [employer] software. Lab information: Lab Results Component Value Date/Time WBC 14.97 (H) 08/19/2023 06:18 AM WBC 14.68 (H) 08/18/2023 07:47 PM WBC 9.30 03/22/2023 08:10 AM WBC 8.29 02/03/2023 09:32 AM WBC 9.56 01/23/2023 04:22 PM WBC 11.05 (H) 05/10/2019 04:06 PM Lab Results Component Value Date/Time BUN 4 (L) 08/20/2023 06:01 AM BUN 5 (L) 08/19/2023 08:40 PM BUN 5 (L) 08/19/2023 06:18 AM BUN 9 08/18/2023 07:47 PM BUN 6 03/22/2023 08:10 AM Lab Results Component Value Date/Time CREAT 0.5 08/20/2023 06:01 AM CREAT 0.5 08/19/2023 08:40 PM CREAT 0.4 (L) 08/19/2023 06:18 AM CREAT 0.5 08/18/2023 07:47 PM CREAT 0.3 (L) 03/22/2023 08:10 AM ANTIMICROBIALS GIVEN (last 28 hours) Date/Time Action Medication Dose Rate 08/20/23 0641 New Bag Piperacillin-Tazobactam (Zosyn) 4.5 g in 100 mL NSS ivpb (FOUR hour infusion) 4.5 g 25 mL/hr 08/19/23 2251 New Bag Piperacillin-Tazobactam (Zosyn) 4.5 g in 100 mL NSS ivpb (FOUR hour infusion) 4.5 g 25 mL/hr 08/19/232010 New Bag Vancomycin (Vancocin) 1500 mg in NSS 250 mL ivpb LOCKED DOSE 1,500 mg 183.33 mL/hr 08/19/23 1520 New Bag Piperacillin-Tazobactam (Zosyn) 4.5 g in 100 mL NSS ivpb (FOUR hour infusion) 4.5 g 25 mL/hr 08/19/23 0823 New Bag Vancomycin (Vancocin) 1500 mg in NSS 250 mL ivpb LOCKED DOSE 1,500 mg 183.33 mL/hr 08/19/23 0816 New Bag Piperacillin-Tazobactam (Zosyn) 4.5 g in 100 mL NSS ivpb (FOUR hour infusion) 4.5 g 25 mL/hr Wt Readings from Last 1 Encounters: 08/20/23 52.4 kg (115 lb 8 oz) Levels to date: Lab Results Component Value Date/Time VANCORANDOM 12.3 08/20/2023 06:01 AM Impression: Soco Guevara is a/an 48 year old female receiving vancomycin therapy. The pharmacokinetic target for therapy is AUC24,SS (range) 400-600mg/L.hr Assessment and Plan: Analysis of the most recent level(s) using [employer] gives the following patient-specific pharmacokinetic parameters: CL: 5.06 L/hr V: 35.3 L T1/2: 5.34 hours Using these values, the current regimen of Vancomycin 1500 mg IV every 12 hours is predicted to result in a steady-state trough of 12.1 mg/L and AUC24 of 591 mg/L.hr. At this time we recommend a regimen of 1250 mg IV every 12 hours, which is predicted to result in a steady-state trough of 10.1 mg/L and AUC24 of 494 mg/L.hr. Obtain random level on 08/22 at 06:00. Pharmacy will continue to follow and dose as appropriate by renal function, culture results, infectious disease input, and overall clinical status. Contact the Pharmacy at extension [phone] if there are any questions. * Kristel Gillespie RN - 08/20/2023 5:59 AM EST Nursing Critical Care Response Note [address] [address] Name: Soco Guevara Date: 08/20/2023 Time: 6:00 AM Event Location: [facility], Unit Area: 4015W In the role of the Critical Response Nurse I was involved in the care of this patient. Method of notification to the critical care response nurse: Follow up previous notification Reason for notification or follow up: Chart Review Observations/Interventions/Assessment: 08/19/20232014 Follow up BP check 79/44. Sumi Escamilla RN aware and contacted covering physician -PO midodrine ordered Outcome/Plan 2122 89/55 0300 110/67 Will continue to follow this patient. * Kizzy Lizama RN - 08/19/2023 7:00 PM EST Nursing Critical Care Response Note [address] [address] Name: Soco Guevara Date: 08/19/2023 Time: 7:00 PM Event Location: [facility], Unit Area: 4B In the role of the Critical Response Nurse I was involved in the care of this patient. Method of notification to the critical care response nurse: Follow up previous notification Reason for notification or follow up: Chart Review Observations/Interventions/Assessment: Chart reviewed. Platelets trending down. BP appeared stable in AM, but soft in the afternoon. Outcome/Plan Will continue to follow this pt. Please contact us if concerns arise. * Disha Zhao, - 08/19/2023 12:18 PM EST Images from the original note were not included. [facility] [id number]/W 48 year old female from the [facility] with iron deficiency anemia and thrombocytosis (last saw heme/onc in March 2023, is supposed to be on liquid iron but does not take), chronic lymphedema,chronic leg ulcers, and Celiac's disease (saw GI in January 2023, colonoscopy and endoscopy performed,GI has been trying to get in contact with patient since then) currently admitted for evaluation of progressive weakness x few months, worsened over the past week INTERVAL HISTORY: Overnight, patient with pauses seen on heart monitor as well as fever. Patient with reports continued bilateral lower extremity pain, especially with palpation and ambulation. States that she usually changes the dressing and cleans her chronic wounds out with silver at home. Otherwise, no acute complaints including chest pain, shortness of breath, headache, or abdominal pain. Objective Physical Exam Most Recent Vital Signs: BP: 83 mmHg/56 mmHg (08/19/23 1155) Pulse: 72 (08/19/23 1146) Temp: 37.22 C (08/19/23 1146) Resp: 16 (08/19/23 1146) SpO2: 100 % (08/19/23 1146) Constitutional: no acute distress, eating breakfast HEENT: normal: normocephalic, atraumatic; no masses, tenderness, or adenopathy CV: regular rate and rhythm Chest: normal respiratory effort, lungs clear to auscultation and percussion Abdomen: soft, +_mild tenderness to palpation of LLQ with voluntary guarding Extremities: Chronic leg ulcers with purulent drainage on bilateral lower extremities, tender to palpation and movement- please refer to media images Skin: warm, dry: Neuro: alert, oriented to person, place, and time Peripheral Line Left Antecubital 20 Gauge (Active) Number of days: 1 Peripheral Line Left;Lower Arm 20 Gauge (Active) Number of days: 0 STUDIES: Encounter Orders Labs and other studies reviewed with pertinent findings noted below: CT CHEST W CONTRAST Result Date: 08/19/2023 IMPRESSION: No acute thoracic abnormality identified. PROCEDURE INFORMATION: Exam: CT Abdomen And Pelvis With Contrast Exam date and time: 08/19/2023 9:25 AM Age: 48 years old Clinical indication: Abdominal pain; Chest pressure; Additional info: Sepsis with unclear source TECHNIQUE: Imaging protocol: Computed tomography of the abdomen and pelvis with contrast. 3D rendering (Not supervised by radiologist): MIP and/or 3D reconstructed images were created by the technologist. Radiation optimization: All CT scans at this facility use at least one of these dose optimization techniques: automated exposure control; mA and/or kV adjustment per patient size (includes targeted exams where dose is matched to clinical indication); or iterative reconstruction. Contrast material: OPTIRAY; Contrast volume: 320 ml; Contrast route: INTRAVENOUS (IV); COMPARISON: CT PET^[facility] [employer] [facility] (Adult) 01/20/2023 2:48 PM COMPARISON MORE: CT CHEST/ABDOMEN/PELVIS WITH IV CONTRAST WITH ORAL CONTRAST 12/19/2022 6:17 PM FINDINGS: Liver: Area of hypoattenuation along the anterior margin ofthe liver adjacent to the falciform ligament consistent with focal fatty infiltration. The liver isnormal in size and contour. Gallbladder and bile ducts: The gallbladder appears unremarkable. No intra- or extra-hepatic biliary ductal dilatation. Pancreas: The pancreas appears normal. Spleen: The spleen appears normal. Adrenal glands: The adrenals appear normal. Kidneys and ureters: The kidneys enhance symmetrically and empty into non- dilated ureters. Stomach and bowel: The stomach appears unremarkable. Fluid- filled small and large bowel. Correlate with any history of diarrheal illness. No significant bowel wall thickening. Appendix: No signs of appendicitis. Intraperitoneal space: Trace mesenteric fat stranding similar to prior exam on 12/19/2022. Vasculature: Proximal left ovarian veinmeasures up to 14 mm in diameter prominent periuterine veins measuring up to 10 mm in diameter. Lymph nodes: A few mildly prominent but not significantly enlarged mesenteric lymph nodes, similar to prior exam on 12/19/2022. Solitary enlarged low-density lymph node measuring up to 1.5 cm in the short axis in the mesentery (axial series 2, image 176), similar to prior exam. Urinary bladder: The bladder is distended and demonstrates no focal contour abnormality. Reproductive: Unremarkable as visual ized. Bones/joints: Lumbarized S1 vertebral body. The last fully formed intervertebral disc space is S1-2. Bilateral pars defects at L5 with trace grade 1 anterolisthesis of L5 on S1 by approximately3 mm. Subtle 9 mm lytic lesion at L1 again noted. 5 mm lytic lesion in the L4 vertebral body again noted. Soft tissues: Unremarkable. IMPRESSION: 1. Fluid-filled small and large bowel. Correlate withany history of diarrheal illness. No significant bowel wall thickening. 2. Mild mesenteric lymphadenopathy and mesenteric fat stranding overall similar to prior exam on 12/19/2022. Findings could be related to mild enteritis. 3. Findings concerning for possible pelvic venous insufficiency, correlate with any history of chronic pelvic pain. THIS DOCUMENT HAS BEEN ELECTRONICALLY SIGNED BY JOLIE MARY MD CT ABD/PELVIS W IV CONTRAST - WO ORAL CONTRAST Result Date: 08/19/2023 IMPRESSION: No acute thoracic abnormality identified. PROCEDURE INFORMATION: Exam: CT Abdomen And Pelvis With Contrast Exam date and time: 08/19/2023 9:25 AM Age: 48 years old Clinical indication: Abdominal pain; Chest pressure; Additional info: Sepsis with unclear source TECHNIQUE: Imaging protocol: Computed tomography of the abdomen and pelvis with contrast. 3D rendering (Not supervised by radiologist): MIP and/or 3D reconstructed images were created by the technologist. Radiation optimization: All CT scans at this facility use at least one of these dose optimization techniques: automated exposure control; mA and/or kV adjustment per patient size (includes targeted exams where dose is matched to clinical indication); or iterative reconstruction. Contrast material: OPTIRAY; Contrast volume: 320 ml; Contrast route: INTRAVENOUS (IV); COMPARISON: CT PET^[facility] (Adult) 01/20/2023 2:48 PM COMPARISON MORE: CT CHEST/ABDOMEN/PELVIS WITH IV CONTRAST WITH ORAL CONTRAST 12/19/2022 6:17 PM FINDINGS: Liver: Area of hypoattenuation along the anterior margin ofthe liver adjacent to the falciform ligament consistent with focal fatty infiltration. The liver isnormal in size and contour. Gallbladder and bile ducts: The gallbladder appears unremarkable. No intra- or extra-hepatic biliary ductal dilatation. Pancreas: The pancreas appears normal. Spleen: The spleen appears normal. Adrenal glands: The adrenals appear normal. Kidneys and ureters: The kidneys enhance symmetrically and empty into non- dilated ureters. Stomach and bowel: The stomach appears unremarkable. Fluid- filled small and large bowel. Correlate with any history of diarrheal illness. No significant bowel wall thickening. Appendix: No signs of appendicitis. Intraperitoneal space: Trace mesenteric fat stranding similar to prior exam on 12/19/2022. Vasculature: Proximal left ovarian vein measures up to 14 mm in diameter prominent periuterine veins measuring up to 10 mm in diameter. Lymph nodes: A few mildly prominent but not significantly enlarged mesenteric lymph nodes, similar to prior exam on 12/19/2022. Solitary enlarged low-density lymph node measuring up to 1.5 cm in the short axis in the mesentery (axial series 2, image 176), similar to prior exam. Urinary bladder: The bladder is distended and demonstrates no focal contour abnormality. Reproductive: Unremarkable as visua lized. Bones/joints: Lumbarized S1 vertebral body. The last fully formed intervertebral disc space is S1-2. Bilateral pars defects at L5 with trace grade 1 anterolisthesis of L5 on S1 by approximately 3 mm. Subtle 9 mm lytic lesion at L1 again noted. 5 mm lytic lesion in the L4 vertebral body againnoted. Soft tissues: Unremarkable. IMPRESSION: 1. Fluid-filled small and large bowel. Correlate with any history of diarrheal illness. No significant bowel wall thickening. 2. Mild mesenteric lymphadenopathy and mesenteric fat stranding overall similar to prior exam on 12/19/2022. Findings could berelated to mild enteritis. 3. Findings concerning for possible pelvic venous insufficiency, correlate with any history of chronic pelvic pain. THIS DOCUMENT HAS BEEN ELECTRONICALLY SIGNED BY JOLIE MARY MD XR L SPINE AP AND LATERAL Result Date: 08/18/2023 IMPRESSION: No acute findings. THIS DOCUMENT HAS BEEN ELECTRONICALLY SIGNED BY TOR MCKEON MD XR T SPINE AP AND LATERAL Result Date: 08/18/2023 IMPRESSION: No acute findings. THIS DOCUMENT HAS BEEN ELECTRONICALLY SIGNED BY TOR MCKEON MD XR TIB/FIB 2 VIEWS Result Date: 08/18/2023 IMPRESSION: No acute osseous abnormality. THIS DOCUMENT HAS BEEN ELECTRONICALLY SIGNED BY TOR MCKEON MD XR CHEST 1 VIEW Result Date: 08/18/2023 IMPRESSION: No acute cardiopulmonary disease. THIS DOCUMENT HAS BEEN ELECTRONICALLY SIGNED BY TOR MCKEON MD CT HEAD/BRAIN WO CONTRAST Result Date: 08/18/2023 IMPRESSION: No acute intracranial abnormality. THIS DOCUMENT HAS BEEN ELECTRONICALLY SIGNED BY TOR MCKEON MD BMP Lab results within last 7 days (see chart for full results) Units 08/19/23 0618 08/18/23 194 Sodium mmol/L 141 135 Potassium mmol/L 3.1* 3.6 Chloride mmol/L 111* 103 CO2 mmol/L 20* 21* BUN mg/dL 5* 9 Creatinine mg/dL 0.4* 0.5 Phosphorus mg/dL -- 4.1 Magnesium mg/dL 2.2 2.1 CBC Lab results within last 7 days (see chart for full results) Units 08/19/23 0618 08/18/23 1947 HGB g/dL 11.3* 12.8 HCT % 32.1* 38.4 WBC K/uL 14.97* 14.68* PLT K/uL 1,089* 1,192* Neutrophils % % -- 72.0 Monocytes % % -- 12.8* Eosinophils % % -- 2.2 HEPATIC PANEL Lab results within last 7 days (see chart for full results) Units 08/18/23 194 Protein g/dL 6.3 Bilirubin, Total mg/dL 0.2 Alkaline Phosphatase U/L 144* AST U/L 23 ALT U/L 18 TROPONIN Lab results within last 7 days (see chart for full results) Units 08/19/23 0618 08/19/23 0127 Troponin T, High Sensitivity ng/L 8 6 LACTIC ACID Lab results within last 7 days (see chart for full results) Units 08/18/23 194 Lactate mmol/L 1.3 No results found for the last 90 days. Assessment and Plan IMPRESSION : Principal Problem: Generalized weakness Active Problems: Lymphedema Venous stasis ulcers of both lower extremities (HCC) Sore throat Thrombocytosis Celiac disease Resolved Problems: * No resolved hospital problems. * DIFFERENTIAL AND PLAN: Fever -Pending GI pathogen panel -Negative: group A srep, RPP, urinalysis, CXR, CT Chest Celiac Disease -Pending GI consult -Gluten Free Diet Venous Stasis Ulcers -IV Vancomycin, Zosyn -Pending wound cultures Other -Pending cardiac consult due to two episodes of pauses -Pending ECHO PHARMACOLOGIC VTE PROPHYLAXIS: hEParin CODE STATUS: Full Code EXPECTED DISCHARGE DATE: 08/22/2023 Patient was seen, was examined, and was discussed with Dr. Cerrato. Associated attestation - Magali Cerrato MD - 08/19/2023 12:57 PM EST I saw and evaluated the patient today. I have reviewed the trainee note and agree. 48 yo Female [place] pt with ANASTASIA, Celiac Disease, Reactive Thrombocytosis, Chronic Diarrhea, ? Multiple Myeloma, Chronic LE non healing bilateral ulcers p/w Generalized weakness and ambulatory dysfunction Noted to be febrile and Hypotensive Labs: Leukocytosis, Thrombocytosis Severe Sepsis possible source could be LE Infected ulcers On exam pt has deep ulcers on bilateral posterior leg appears grossly infected draining foul smelling discharge. Pictures scanned into chart - Add Vancomycin to Zosyn - MRSA screen positive - Follow blood cultures - Monitor fever curve and leukocytosis - Consulted General surgery to evaluate wound for need for debridement - Gluten free diet. Pt appears mal nurished with albumin: 2.8 - Obtain CT chest/ abdomen/ pelvis with IV contrast. Has lower abdomen tenderness of palpation - Having sinus pauses up to 6 sec. Cardiology has been consulted - PT/ OT/ CM consulted Time spent: 55 Mins. More than half with patient and remaining time for reviewing labs, medial records, coordination of care with nurses and specialities. Ray elements of the counseling and coordination of care included detail of treatment plan w/ pt and caregivers, content of pt and/or family discu ssions, ray tests or procedures reviewed/ordered in med rec, outcomes of discussions with other healthcare providers * Camron Amaya, [facility] - 08/19/2023 7:10 AM EST PHARMACY PHARMACOKINETIC CONSULT [facility]-[address] [id number] Name: Soco Guevara Location: [facility]-4[facility]/W Date: 08/19/2023 Time: 7:09 AM Requesting service: Hospitalist Bacteria being treated: Empiric Source of infection: Sepsis Medication(s) being managed: Vancomycin Pharmacokinetic calculations will be performed utilizing [employer] software. Lab information: Lab Results Component Value Date/Time WBC 14.68 (H) 08/18/2023 07:47 PM WBC 9.30 03/22/2023 08:10 AM WBC 8.29 02/03/2023 09:32 AM WBC 9.56 01/23/2023 04:22 PM WBC 10.42 01/20/2023 01:13 PM WBC 11.05 (H) 05/10/2019 04:06 PM Lab Results Component Value Date/Time BUN 9 08/18/2023 07:47 PM BUN 6 03/22/2023 08:10 AM BUN 6 02/03/2023 09:32 AM BUN 8 01/20/2023 01:13 PM BUN 8 01/09/2023 07:52 AM Lab Results Component Value Date/Time CREAT 0.5 08/18/2023 07:47 PM CREAT 0.3 (L) 03/22/2023 08:10 AM CREAT 0.4 (L) 02/03/2023 09:32 AM CREAT 0.4 (L) 01/20/2023 01:13 PM CREAT 0.4 (L) 01/09/2023 07:52 AM ANTIMICROBIALS GIVEN (last 28 hours) Date/Time Action Medication Dose Rate 08/19/23 0223 New Bag Piperacillin-Tazobactam (Zosyn) 4.5 g in 100 mL NSS ivpb (HALF hour infusion) 4.5 g 200 mL/hr 08/19/23 0132 New Bag Vancomycin (Vancocin) 1250 mg in NSS 250 mL ivpb 1,250 mg 183.33 mL/hr Wt Readings from Last 1 Encounters: 08/19/23 53.2 kg (117 lb 4.6 oz) Levels to date: No results found for: "VANCO", "VANCOPEAK", "VANCORANDOM", "VANCOTROUGH", "GENTPEAK", "GENTRANDOM","GENTTROUGH", "TOBRAPEAK", "TOBRARANDOM", "TOBRATROUGH", "AMIKAPEAK", "AMIKARANDOM", "AMIKATROUGH" Impression: Soco Guevara is a/an 48 year old female receiving vancomycin therapy. The pharmacokinetic target for therapy is AUC24,SS (range) 400-600mg/L.hr Assessment and Plan: Analysis using [employer] gives the following patient-specific pharmacokinetic parameters: CL: 5.25 L/hr V: 35.9 L T1/2: 5.24 hours At this time we recommend a regimen of 1500 mg IV every 12 hours, which is predicted to result in asteady-state trough of 11.3 mg/L and AUC24 of 567 mg/L.hr. Obtain random level on 08/20 at 06:00. Pharmacy will continue to follow and dose as appropriate by renal function, culture results, infectious disease input, and overall clinical status. Contact the Pharmacy at extension [phone] if there are any questions. * Radha Tipton RN - 08/19/2023 12:59 AM EST Nursing Critical Care Response Note [facility]-[address] [phone] Name: Soco Guevara Date: 08/19/2023 Time: 12:59 AM Event Location: [facility], Unit Area: 4B In the role of the Critical Response Nurse I was involved in the care of this patient. Method of notification to the critical care response nurse: Rounding on this unit Reason for notification or follow up: Chart Review Other. Cardiac pause: 6 sec febrile Observations/Interventions/Assessment: Was rounding on this unit. Notified this pt had a 6 sec pause. Primary RN in the room. Pt hypotensive. Pt was present in the room when this happened. Him and the pt deny any changes. Pt is currently febrile. Primary RN notified the Dr. Orders placed for blood cultures, abx , and fluid bolus. Orders also placed for echo and cardiology consult. Outcome/Plan Will add to list to help to monitor closely. Trend labs and BP. Please reach out with any concerns. documented in this encounter H&P Notes * Chuck Hernandez MD - 08/18/2023 9:19 PM EST Images from the original note were not included. [facility] PRESENTING PROBLEM: weakness HPI: This is a 48 yo woman with below pmh that includes iron deficiency anemia, thrombocytosis (thought to be reactive to anemia), chronic lymphedema in lower legs and chronic leg ulcers. She came toED with complaint of progressive weakness, to the point that she is no longer able to stand up without assistance; it has been worsening for several months - but much more severe in past week. She also complains of sore throat for 1 week and mentioned that she feels short of breath at night. She has on and off diarrhea for years. No recent fever but chronically cold. No nausea or vomiting, no dysuria. ROS: see hpi for pertinent ros; 10 systems reviewed and otherwise negative. Subjective Patient's past history, medications, and allergies were reviewed. Objective Physical Exam Most Recent Vital Signs: BP: 102 mmHg/72 mmHg (08/18/232099) Pulse: 83 (08/18/232025) Temp: 36.78 C (08/18/231909) Resp: 22 (08/18/232025) SpO2: 100 % (08/18/231909) Constitutional: no acute distress HEENT: normocephalic, atraumatic; upper plate; posterior pharynx appears benign Eyes: sclera and conjunctiva normal Neck: supple, no noticeable adenopathy CV: normal rate and rhythm, no murmur, gallops or rub Chest: normal respiratory effort, lungs clear to auscultation Abdomen: soft, bowel sounds normal, no tenderness Extremities: 3+ bilateral lower leg edema, below the knees. Skin: warm, skin in edematous area is pigmented c/w venous stasis; there are multiple large stasis ulcers, with granulation tissue; largest in right posterior calf. Surrounding skin is indurated. Neuro: alert, oriented to person, place, very weak; speaks in a whisper. Face symmetric. Otherwise non-focal STUDIES: Encounter Orders Labs and other studies reviewed with pertinent findings noted below: Results for orders placed or performed during the hospital encounter of 08/18/23 COMPREHENSIVE METABOLIC PANEL Result Value Ref Range BUN 9 6 - 20 mg/dL Creatinine 0.5 0.5 - 1.0 mg/dL Estimated Glomerular Filtration Rate >90 >=60 mL/min Sodium 135 135 - 146 mmol/L Potassium 3.6 3.5 - 5.1 mmol/L Chloride 103 98 - 107 mmol/L CO2 21 (L) 22 - 32 mmol/L Anion Gap 11 7 - 15 mmol/L Glucose 96 70 - 120 mg/dL Albumin 2.8 (L) 3.8 - 5.0 g/dL AST 23 10 - 35 U/L Alkaline Phosphatase 144 (H) 35 - 130 U/L Bilirubin, Total 0.2 <=1.2 mg/dL Calcium 8.7 8.4 - 10.2 mg/dL Protein 6.3 6.0 - 8.3 g/dL ALT 18 10 - 35 U/L MAGNESIUM Result Value Ref Range Magnesium 2.1 1.5 - 2.6 mg/dL PHOSPHORUS Result Value Ref Range Phosphorus 4.1 2.5 - 4.8 mg/dL CRP (INFLAMMATORY MARKER) Result Value Ref Range CRP (Inflammatory Marker) 35 (H) <=5 mg/L LACTATE WITH REFLEX IF ABNORMAL Result Value Ref Range Lactate 1.3 0.4 - 2.0 mmol/L URINALYSIS, REFLEX TO MICROSCOPIC Result Value Ref Range Color, Urine Yellow Light Yellow, Yellow, Dark Yellow Clarity, Urine Clear Clear Glucose, Urine Negative Negative mg/dL Bilirubin, Urine Negative Negative Ketone, Urine Negative Negative mg/dL Specific [place], Urine 1.004 1.003 - 1.030 Blood, Urine Negative Negative pH, Urine 6.0 5.0 - 7.5 Units Protein, Urine Negative Negative mg/dL Urobilinogen, Urine 0.2 0.2, 1.0 mg/dL Nitrite, Urine Negative Negative Esterase, Urine Negative Negative Comment, Urine RESPIRATORY PATHOGEN PANEL, PCR Result Value Ref [...] Negative Bordetella parapertussis by PCR Negative Negative GROUP A STREP RAPID THROAT Result Value Ref Range Group A Strep Result Negative Negative CBC Result Value Ref Range WBC 14.68 (H) 4.00 - 10.80 K/uL RBC 4.50 3.85 - 5.15 M/uL HGB 12.8 12.0 - 15.3 g/dL HCT 38.4 36.0 - 45.2 % MCV 85.3 81.5 - 97.5 fL MCH 28.4 27.0 - 34.0 pg MCHC 33.3 32.0 - 36.0 g/dL RDW 16.8 11.5 - 15.5 % PLT 1,192 (HH) 140 - 400 K/uL MPV 8.5 6.6 - 11.1 fL nRBCs 0 <=0 /100 WBCs DIFFERENTIAL, AUTOMATED Result Value Ref Range WBC 14.68 (H) 4.00 - 10.80 K/uL Neutrophils % 72.0 40.0 - 75.0 % Lymphocytes % 11.4 (L) 18.0 - 42.0 % Monocytes % 12.8 (H) 1.0 - 11.0 % Eosinophils % 2.2 0.0 - 6.0 % Basophils % 0.7 0.0 - 2.0 % Immature Granulocytes % 0.9 0.0 - 2.0 % Absolute Neutrophils 10.56 (H) 1.80 - 7.70 K/uL Absolute Lymphocytes 1.67 1.00 - 4.80 K/ul Absolute Monocytes 1.88 (H) 0.00 - 1.10 K/uL Absolute Eosinophils 0.33 0.00 - 0.70 K/uL Absolute Basophils 0.11 0.00 - 0.20 K/uL Absolute Immature Granulocytes 0.13 0.00 - 0.20 K/uL XR T SPINE AP AND LATERAL Final Result PROCEDURE INFORMATION: Exam: XR Thoracic Spine Exam date and time: 08/18/2023 8:06 PM Age: 48 years old Clinical indication: Other: Abnormal lesions on her spine in the past and now having more trouble walking TECHNIQUE: Imaging protocol: Radiologic exam of the thoracic spine. Views: 2 views. COMPARISON: CT PET^[facility] (Adult) 01/20/2023 2:48 PM FINDINGS: Bones/joints: Mild chronic appearing compression deformities of the thoracic spine. Thoracic vertebral bodies are well aligned. No acute fracture. Mild degrees of thoracic disc height loss. No aggressive bone lesion identified. Soft tissues: Unremarkable. IMPRESSION IMPRESSION: No acute findings. THIS DOCUMENT HAS BEEN ELECTRONICALLY SIGNED BY TOR MCKEON MD XR L SPINE AP AND LATERAL Final Result PROCEDURE INFORMATION: Exam: XR Lumbosacral Spine Exam date and time: 08/18/2023 8:06 PM Age: 48 years old Clinical indication: Other: Abnormal lesions on her spine in the past and now having more trouble walking TECHNIQUE: Imaging protocol: Radiologic exam of the lumbosacral spine. Views: 2 or 3 views. COMPARISON: CT PET^[facility] (Adult) 01/20/2023 2:48 PM FINDINGS: Bones/joints: Transitional lumbosacral type anatomy. For the purposes of lumbar spine numbering, there is a hypoplastic right rib at L1. By this numbering, there is a lumbarized appearance of the S1 vertebral body. There is a 5 mm grade 1 anterolisthesis of L5 on S1 with L5 pars defects. Lumbar vertebral body heights are unremarkable. No acute fracture. No significant lumbar disc height loss. No aggressive bone lesion. Soft tissues: Unremarkable. IMPRESSION IMPRESSION: No acute findings. THIS DOCUMENT HAS BEEN ELECTRONICALLY SIGNED BY TOR MCKEON MD XR TIB/FIB 2 VIEWS Final Result PROCEDURE INFORMATION: Exam: XR Left Tibia and Fibula Exam date and time: 08/18/2023 8:06 PM Age: 48 years old Clinical indication: Other: Deep wounds on both legs TECHNIQUE: Imaging protocol: Radiologic exam of the left tibia and fibula. Views: 2 views. COMPARISON: CT PET^[facility] (Adult) 01/20/2023 2:48 PM FINDINGS: Bones/joints: No acute fracture or dislocation. No bone erosion. No significant degenerative joint disease. Osteopenia. Soft tissues: Diffuse soft tissue edema. Multiple soft tissue defects. IMPRESSION IMPRESSION: No acute osseous abnormality. THIS DOCUMENT HAS BEEN ELECTRONICALLY SIGNED BY TOR MCKEON MD XR CHEST 1 VIEW Final Result PROCEDURE INFORMATION: Exam: XR Chest Exam date and time: 08/18/2023 8:06 PM Age: 48 years old Clinical indication: Other: Difficulty walking/weakness TECHNIQUE: Imaging protocol: Radiologic exam of the chest. Views: 1 view. COMPARISON: CT CHEST/ABDOMEN/PELVIS WITH IV CONTRAST WITH ORAL CONTRAST 12/19/2022 6:17 PM FINDINGS: Lungs: Unremarkable. No consolidation. Pleural spaces: Unremarkable. No pleural effusion. No pneumothorax. Heart/Mediastinum: Unremarkable. No cardiomegaly. Bones/joints: Unremarkable. IMPRESSION IMPRESSION: No acute cardiopulmonary disease. THIS DOCUMENT HAS BEEN ELECTRONICALLY SIGNED BY TOR MCKEON MD CT HEAD/BRAIN WO CONTRAST Final Result PROCEDURE INFORMATION: Exam: CT Head Without Contrast Exam date and time: 08/18/2023 7:56 PM Age: 48 years old Clinical indication: Pain; Headache; Additional info: Difficulty walking and using her legs, abnormal lesions on her spine in the past TECHNIQUE: Imaging protocol: Computed tomography of the head without contrast. Radiation optimization: All CT scans at this facility use at least one of these dose optimization techniques: automated exposure control; mA and/or kV adjustment per patient size (includes targeted exams where dose is matched to clinical indication); or iterative reconstruction. COMPARISON: CT PET^[facility] (Adult) 01/20/2023 2:48 PM FINDINGS: Brain: [place] white differentiation is unremarkable. No acute hemorrhage. No mass effect or midline shift. No finding to suggest an acute infarct. Cerebral ventricles: No hydrocephalus. Paranasal sinuses: Visualized sinuses are unremarkable. No fluid levels. Mastoid air cells: Visualized mastoid air cells are well aerated. Bones/joints: Unremarkable. No acute fracture. Soft tissues: Unremarkable. Vasculature: Atherosclerotic calcifications of the carotid arteries. IMPRESSION IMPRESSION: No acute intracranial abnormality. THIS DOCUMENT HAS BEEN ELECTRONICALLY SIGNED BY TOR MCKEON MD Assessment and Plan IMPRESSION: Principal Problem: Generalized weakness Active Problems: Lymphedema Venous stasis ulcers of both lower extremities (HCC) Sore throat Thrombocytosis Celiac disease Resolved Problems: * No resolved hospital problems. * DIFFERENTIAL AND PLAN: Cause of persistent thrombocytosis is unclear, as she is not anemic and her wbc is elevated today. Prior to today, she had a whole body pet ct, and possibility of celiac disease was raised. It is possible that her constellation of symptoms including weakness, intermittent diarrhea, lower leg edema,are due in some part to celiac disease and nutritional deficiency. It is unclear how compliant she is with diet. -admit to med-surg -pt/ot eval for weakness -wound care/surgery evaluation of leg ulcers -gluten free diet. -heme onc consult regarding persistent thrombocytosis. -halls prn for sore throat. PHARMACOLOGIC VTE PROPHYLAXIS:hEParin CODE STATUS: Full Code EXPECTED DISCHARGE DATE: 1-2 days or more I spent a total of 60 minutes coordinating, documenting, and providing care for this patient excluding time spent in the performance of separately billed services. documented in this encounter Procedure Notes * Sue Gutierrez MD - 08/19/2023 4:23 AM ESTAssociated Order(s): EKG REASON FOR STUDY: pauses CONCLUSIONS: Normal sinus rhythm Normal ECG No previous ECGs available Ventricular Rate: 77 Atrial Rate: 77 DE Interval: 170 QRS Duration: 82 QT/QTc: 378/427 ms P-R-T [place]: 78 : 70 : 78 degrees documented in this encounter Consult Notes * Melany Hemphill OT - 08/22/2023 2:43 PM ESTAssociated Order(s): ADULT OCCUPATIONAL THERAPY CONSULT IP GENERAL EVALUATION - Occupational Therapy [facility] [address] Name: Soco Guevara Location: [facility] [id number] Date: 08/22/2023 Time: 1443 Soco Guevara is a 48 year old female. Per H&P "This is a 48 yo woman with below pmh that includes iron deficiency anemia, thrombocytosis (thought to be reactive to anemia), chronic lymphedema in lower legs and chronic leg ulcers. Shecame to ED with complaint of progressive weakness, to the point that she is no longer able to standup without assistance; it has been worsening for several months - but much more severe in past week. She also complains of sore throat for 1 week and mentioned that she feels short of breath at night. She has on and off diarrhea for years. No recent fever but chronically cold. No nausea or vomiting, no dysuria. " Patient Status: Inpatient Insurance: Payor: [employer] Plan: [employer] PLAN Product Type: *No Product type* Patient Seen: at bedside, nursing cleared patient for therapy Patient Identified By: Name, ID Band and Date Diagnosis: weakness, ADL deficit, decreased endurance (08/22/231442) Status of treatment: Evaluation completed (08/22/23 150) Orders: OT evaluation and treatment (08/22/231442) Weight Bearing Status: Weight bearing as tolerated (08/22/231442) Precautions: Falls;Safety;Alarms (08/22/231442) Total Treatment Time: 18 (08/22/23 1501) Past Medical History: No past medical history on file. Past Surgical History: Past Surgical History: Procedure Laterality Date COLONOSCOPY, DIAGNOSTIC (RECTUM) N/A 01/13/2023 poor prep/diverticulosis/hemorrhoids/COLONOSCOPY FLEXIBLE PROXIMAL DIAGNOSTIC performed by Tyler Perez MD at ENDOSCOPY [facility] EGD, FLEXIBLE, DIAGNOSTIC N/A 01/13/2023 esophageal mucosal changes secondary to EOE/biopsies show celiac disease/ESOPHAGOGASTRODUODENOSCOPY(EGD), FLEXIBLE, TRANSORAL, DIAGNOSTIC performed by Tyler Perez MD at [facility]COPY [facility] Social History/Disposition Lives with: Spouse;Family (dtr) (08/22/231442) Assistance available: Yes (08/22/231442) Dwelling type: Multi-story home (08/22/231442) Entry steps: None (08/22/231442) Inside steps: 10 - 15 (with HR) (08/22/231442) Bedroom location: 1st floor (08/22/231442) Bath location: 1st floor full bath (08/22/231442) Prior Level of Function Reported by: Patient (08/22/231442) Ambulation: Ambulatory without device (08/22/231442) Grooming: Independent (08/22/231442) Bathing: Independent (08/22/231442) Dressing: Independent (08/22/231442) Feeding: Independent (08/22/231442) Toileting: Independent (08/22/231442) Meal Prep: Independent (08/22/231442) Homemaking: Independent (08/22/231442) Shopping: Independent (08/22/231442) Medication Management: Independent (08/22/231442) Money Management: Independent (08/22/231442) 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 Pain: No complaints of pain Observations Consciousness: Alert (08/22/231442) Orientation: Oriented times 4 (08/22/231442) Cognitive Limitations: (none noted on OT eval) (08/22/231442) Psychosocial: Patient can communicate basic needs;Patient can converse in a social setting (08/22/231442) Visual Deficits: (glasses) (08/22/231442) Sitting posture: Forward head;Rounded shoulders (08/22/231442) Other Findings Light touch sensation: LUE;RUE;Intact (08/22/231442) Coordination: LUE;RUE;Gross motor;Fine motor;Intact (08/22/231442) Current Functional Status: Bilateral Upper Extremity Hand Dominance: Right (08/22/231442) Range of Motion: WFL (08/22/231442) Strength Assessment: Deficits noted (08/22/231442) LUE: Shoulder;Elbow;Wrist;Grasp;3+/5 (08/22/231442) RUE: Shoulder;Elbow;Wrist;Grasp;3+/5 (08/22/231442) Self Care Able to provide self care: Yes (08/22/231442) Feeding: Modified Independent (08/22/231442) Grooming: Contact Guard (08/22/231442) Toileting: Moderate Assistance (08/22/231442) Dressing Upper Body: Minimal Assistance (08/22/231442) Lower Body: Minimal Assistance (08/22/231442) Bathing Upper Body: Minimal Assistance (08/22/231442) Lower Body: Moderate Assistance (08/22/231442) Functional Ambulation Assistive Device: Rolling walker (08/22/231442) Distance in feet:: 40 (08/22/231442) Level of Assistance: Minimal Assistance (08/22/231442) Bed Mobility Supine-Sit: Minimal Assistance (08/22/231442) Sit-Supine: Moderate Assistance (08/22/231442) OT Transfers Sit-Stand: Moderate Assistance (08/22/231442) Stand-Sit: Moderate Assistance (08/22/231442) Toilet: Minimal Assistance (08/22/231442) Balance Sit (Static): Normal (08/22/231442) Sit (Dynamic): Normal (08/22/231442) Stand (Static): Good (08/22/231442) Stand (Dynamic): Good (08/22/231442) Alarm Status Patient positioned in: Bed (08/22/231442) With: Call denis in reach (08/22/231442) Patient and Family Goals: to get well and to return home Patient Education Education Topic: Role of OT;Plan of care goals (08/22/231442) Review of Precautions: Safety;Fall (08/22/231442) Method of Education: Verbalized to patient (08/22/231442) Education Provided to: Patient (08/22/231442) Response to Education: Receptive and agreeable to education (08/22/231442) Barriers to learning: Medical status (08/22/231442) Treatment Provided: Evaluation Moderate Complexity 18 minutes - 54346: Patient was cooperative and pleasant during treatment [...] mobility;IADL;Safety;Upper extremity strength;Upper extremity range of motion;Weakness (08/22/231442) Goals: Bathing: Upper: modified independent (100% with [...] functional level questions without assist. Pt required Min A for supine > sitting EOB and Mod A for lifting B LE into bed when performing sit > supine. Pt required Mod A for sit <> stand from the bed and from the toilet. Pt required CG once in stance to ambulate using the RW. Pt was able to complete toileting hygiene and clothing management with CG. OT AM-PAC: 17 Pt requires assist with bathing, dressing , and toileting. As such, Would consider home with post-acute care services which may include outpatient therapy or home health. The level of care will be determined in collaboration with the patient, family/caregiver, and care team members. Skilled OT services warranted here at [facility] to address deficits in ADLs and functional mobility. Treatment Plan: Energy Conservation, Safety, Homemaking Skills, Bed mobility training, Functional Ambulation, Transfer training, Coordination Tasks, ROM exercises, Upper extremity strengthening, Balance activities, ADL training, and Endurance Anticipated Frequency (on eval): 1 to 3 times per week (08/22/231442) AM-PAC Help From Another Person Eating Meals: None (08/22/231442) Help From Another Person Taking Care of Personal Grooming: A little (08/22/231442) Help From Another Person To Put On/Take Off Upper Body Clothing: A little (08/22/231442) Help From Another Person To Put On/Take Off Lower Body Clothing: A little (08/22/231442) Help From Another Person Toileting: A lot (08/22/231442) Help From Another Person Bathing: A lot (08/22/231442) OT AM-PAC Score: 17 (08/22/231442) OT AM-PAC t-Scale Score: 37.26 (08/22/231442) HLM (Highest Level of Mobility) Goal: Level 6 walk 10 steps or more (08/22/23 1320) * Vinh Morales, PT - 08/21/2023 2:56 PM ESTAssociated Order(s): ADULT PHYSICAL THERAPY CONSULT IP GENERAL EVALUATION - Physical Therapy [address] [address] Name: Soco Guevara Location: [place] [id number]/ Date: 08/21/2023 Time: 1455 Soco Guveara is a/an 48 year old female. Patient Status: Inpatient Insurance: Payor: [employer] Plan: Active [employer] COMM[employer]ITY PLAN Product Type: *No Product type* Patient Seen: at bedside, Dr. Cerrato cleared patient for therapy Patient Identified By: Name, ID Band and Date Diagnosis: Gait dysfunction, generalized weakkness (08/21/231455) Status of treatment: Evaluation completed (08/21/231455) Orders: PT evaluation and treatment (08/21/231455) Weight Bearing Status: Weight bearing as tolerated;RUE;LUE;RLE;LLE (08/21/231455) Precautions: Falls;Safety;Isolation (08/21/231455) Total Treatment Time--free text: 33 minutes (08/21/231455) Past Medical History: No past medical history on file. Past Surgical History: Past Surgical History: Procedure Laterality Date COLONOSCOPY, DIAGNOSTIC (RECTUM) N/A 01/13/2023 poor prep/diverticulosis/hemorrhoids/COLONOSCOPY FLEXIBLE PROXIMAL DIAGNOSTIC performed by Tyler Perez MD at [facility]COPY [facility] EGD, FLEXIBLE, DIAGNOSTIC N/A 01/13/2023 esophageal mucosal changes secondary to EOE/biopsies show celiac disease/ESOPHAGOGASTRODUODENOSCOPY(EGD), FLEXIBLE, TRANSORAL, DIAGNOSTIC performed by Tyler Perez MD at [facility]COPY [facility] Subjective: Pt expressed willingness to participate in PT consult. Social History/Disposition Lives with: Spouse;Family (daughter) (08/21/231455) Assistance available: Yes (spouse and daughter) (08/21/231455) Dwelling type: Multi-story home (08/21/231455) Entry steps: None (threshold only) (08/21/231455) Inside steps: 10 - 15 (w/ 1 railing) (08/21/231455) Bedroom location: 1st floor (08/21/231455) Bath location: 1st floor full bath (08/21/231455) Prior Level of Function Reported by: Patient;Family (spouse) (08/21/231455) Ambulation: Ambulatory without device (08/21/231455) Devices at home: Rolling walker (08/21/231455) Observations Consciousness: Alert (08/21/231455) Orientation: Oriented times 4 (08/21/231455) Psychosocial: Patient can communicate basic needs;Patient can converse in a social setting (08/21/231455) Other Findings: Yes (08/21/231455) Findings: Light touch sensation;Coordination;Tone (08/21/231455) Light Touch Sensation Results: Intact;LLE;RLE (08/21/231455) Coordination Results: Intact;LLE;RLE (08/21/231455) Tone Results: Intact;LLE;RLE (08/21/231455) Sitting Posture: Forward head;Rounded shoulders (08/21/231455) Standing Posture: Forward head;Rounded shoulders (08/21/231455) Pain: Patient has complaints of pain. Pain located B lower legs. 4-5/10 start of PT session, 6-710end of PT session. Staff Notified Range of Motion Range of Motion: WFL (B LE; see OT for B UE) (08/21/231455) Strength Assessment Strength Assessment: Deficits noted (see OT for B UE) (08/21/231455) WNL, except: LLE;RLE (08/21/231455) LLE: 4/5;Hip;Knee;Ankle (08/21/231455) RLE: 4/5;Hip;Knee;Ankle (08/21/231455) P.T. Bed Mobility Roll (Left): Modified Independent (08/21/231455) Supine-Sit: Minimal Assistance (08/21/231455) Transfers Sit-Stand: Minimal Assistance (08/21/231455) Stand-Sit: Minimal Assistance (08/21/231455) W/C-Bed/Mat: Minimal Assistance (08/21/231455) Ambulation: Distance ambulated (feet): 43 (3 feet and 20 feet x 2) Assistive Device: Rolling walker Assist: Contact Guard 1 Gait Characteristics: Decreased speed, Decreased step length, mild trunk sway, fatigues easily, notsafe to transfer or amb w/o assistance. Balance Sit (Static): Good (08/21/231455) Sit (Dynamic): Good (08/21/231455) Stand (Static): Fair (08/21/231455) Stand (Dynamic): Fair (08/21/231455) Patient and or Family Goal(s): to get well and to return home Patient Education Review of Precautions: Safety;Fall (no amb or transfers w/o nursing assist) (08/21/231455) Safety Awareness: Patient verbalizes insight of current deficits;Patient demonstrates carryover of insight during functional tasks;Patient can communicate basic needs (08/21/231455) Preferred learning method: Combination (08/21/231455) Barriers to learning: Medical Status (08/21/231455) Method of Education: Verbalized to patient;Patient demonstrated task;Verbalized to family/caregiver(08/21/231455) Topic of Education: Safety with mobility, Goals/plan of care, Use of assistive device, and Fall prevention and instructed pt and spouse that at current level of function if discharged home, pt is to use a rolling walker and have assist of 1 at all times for amb and transfers from a caregiver who can physically assist pt Method of Education: Verbal discussion and explanation provided to pt and spouse: verbalized understanding and or agreement of this information Treatment Provided: Therapeutic Activities 4 minutes: bed mobility training transfer training toilet transfer training Gait Training 9 minutes: gait training with rolling walker Evaluation Moderate Complexity 15 minutes - 13493: Patient was cooperative, pleasant, motivated, and alert during treatment session. Moderate complexity evaluation performed and 1-2 personal factors or comorbidities were identified that will impact plan of care, including cardiac history and chronic lymphedema in lower legs and chronic leg ulcers and decreased blood pressure during PT session. Patient presents with limitations in strength, bed mobility, transfers, gait, balance, endurance, and safety, which will impact plan of care. These limitations will be addressed by the goals set for this patient. Alarm Status Patient positioned in: Chair (recliner, brakes locked, IV secure, pillow under B legs w/ B heels off bed, spouse and nurse w/pt) (08/21/231455) With: Call denis in reach (08/21/231455) Treatment Status: Treatment at bedside (08/21/231455) Goals: Demonstrate Bed Mobility with: Supine to Sit: supervision (with cues) Sit to supine: supervision (with cues) Demonstrate Transfers with: Sit to stand: supervision (with cues) Stand to sit: supervision (with cues) Bed to chair: supervision (with cues) Chair to bed: supervision (with cues) Demonstrate Ambulation: assistive device: rolling walker distance in feet: 100 level of assistance on level surface: supervision (with cues) Increase Safety: w/ functional mobility Time Frame: 1-10 sessions Assessment: Pt urinated and had bowel movement in toilet during PT session and cleaned self independently; informed pt's nurse. Vital signs as follows: blood pressure 94/61, 91/58 and 87/52 mmHg, heart rate 70-78 bpm and O2 saturation on room air 100% Pt presents w/ deficits in strength, balance, endurance and functional mobility w/ pt requiring assist of 1 and rolling walker for transfers and amb, AM PAC 17 and is not safe to transfer or amb without assistance. At discharge would consider post acute services which may include out patient therapy or home health. The level of care will be determined in collaboration with the patient, family/caregiver and careteam members. Skilled PT at [facility] is warranted to address deficits in strength, endurance, balance and functional mobility and to continue to assess discharge needs. Deficits requiring P.T. treatment needs: Safety;Mobility;Balance;Weakness;Endurance (08/21/231455) Equipment Needs: Equipment needs: Rolling walker (08/21/231455) Treatment Plan: Bed mobility training, Transfer training, Gait training, Strengthening exercises: BLE, Balance activities, and Educate on safety with functional mobility Anticipated Frequency (on eval): 3 to 5 times per week (08/21/231455) AM PAC Score with Stairs: 17 * Jocy Nur LPN - 08/21/2023 1:32 PM ESTAssociated Order(s): WOUND CONSULT IP Images from the original note were not included. Order Date:08/21/2023 Ordering User:MAGALI CERRATO [[id number]] Attending Provider:Kwesi Mcadams DO [[id number]] Jared mancini Provider: Magali Cerrato MD [[id number]] Department:[address] [place] [address][[id number]] Order Specific Information Order: WOUND CONSULT IP [CUSTOM: [id number]] Order #: [id number]: 1 Priority: Routine Class: Nursing Unit Reason for Consult: -> Bilateral leg wounds Consulting Provider: -> Janett Provider Released on: 08/21/2023 11:32 AM Priority: Routine Class: Nursing Unit Reason for Consult: -> Bilateral leg wounds Consulting Provider: -> Janett Provider Released on: 08/21/2023 11:32 AM Wound Care consult done for BLE wounds. HPI; Information obt from chart, and patient: Soco Guevara is a 48 y/o [place] female admitted 08/18/23 for weakness. She has a PMH of iron deficiency anemia, thrombocytosis (thought to be reactive to anemia), chronic lymphedema in lower legs and chronic leg ulcers. Patient states she has had chronic LE swelling and wounds for the mast 6-12 months. She has been seen by doctors for this and was using a silver dressing. Some wounds have healed, but new wounds have developed. She does not think she has had any arterial or venous studies. DeniesPMH diabetes. Wound care was asked to see pt by Dr Cerrato for BLE wounds. GS saw patient on 08/20/23. Dr Valeriove dressing change orders to include WTD and silvadene daily. Past medical history: No past medical history on file. Past Surgical History: Procedure Laterality Date COLONOSCOPY, DIAGNOSTIC (RECTUM) N/A 01/13/2023 poor prep/diverticulosis/hemorrhoids/COLONOSCOPY FLEXIBLE PROXIMAL DIAGNOSTIC performed by Tyler Perez MD at [facility]COPY [facility] EGD, FLEXIBLE, DIAGNOSTIC N/A 01/13/2023 esophageal mucosal changes secondary to EOE/biopsies show celiac disease/ESOPHAGOGASTRODUODENOSCOPY(EGD), FLEXIBLE, TRANSORAL, DIAGNOSTIC performed by Tyler Perez MD at [facility]COPY [facility] Family History Problem Relation Age of Onset [...] Derisomaltose] SOB and lost consciousness Code status: Full Code Discussion of adv directives occurred with - adult: Not Discussed due to patient's condition Benson: 18 08/21/23 0828 Benson Scale - Daily Sensory Perception 4 Moisture 4 Activity 3 Mobility 2 Nutrition 3 Friction and Shear 2 Benson Score (auto-calculation) 18 Support surface: standard mattress Routine repositioning past 24 hrs: yes Moisture management past 24 hrs: yes Nutritional support: High Calorie/High Protein Supplement - Orders Placed This Encounter Procedures Gluten Free Diet Focused Wound Assessment: VS: BP 87/51 | Pulse 75 | Temp 37.6 C (99.7 F) (Temporal Artery) | Resp 32 | Ht 1.626 m (5' 4")| Wt 54.6 kg (120 lb 4.8 oz) | LMP 02/04/2022 (Approximate) | SpO2 100% | BMI 20.65 kg/m | BSA 1.57 m General: NAD. C/o pain in BLE rated 8/10. Neuro: AA&O MS: AROM. Sensation intact. No deformities. Vascular: mild edema BLE. Chronic brown discoloration. + DP & PT pulses 2/4. BRAND MGR intact. Integumentary: BLE w/ multi scattered open areas in various stages of healing and size. Mostly granular in appearance. Largest Lt leg ulcer has bernardo mild necrosis around the anterior edge. Some periskin erythema noted to the Lt calf and Rt lower leg. Serosanguinous drainage. Review of Labs/Tests: Latest Reference Range & Units 08/21/23 03:31 08/21/23 03:32 Temperature C 37.0 pH, Venous 7.320 - 7.430 units 7.410 pCO2, Venous 40.0 - 60.0 mmHg 29.6 (L) pO2, Venous 25.0 - 50.0 mmHg 61.3 (H) O2 Content, Venous 7.0 - 18.0 %vol 14.2 Oxyhemoglobin, Venous 40.0 - 85.0 % total Hgb 88.4 (H) Base Excess, Venous -2.0 - 2.0 mmol/L -4.8 (L) Carboxyhemoglobin, Whole Blood <=1.5 % total Hgb 1.0 Methemoglobin, Whole Blood <=1.5 % total Hgb 0.9 Reduced Hemoglobin, Venous % total Hgb 9.7 Sodium 135 - 146 mmol/L 138 Potassium 3.5 - 5.1 mmol/L 3.9 Chloride 98 - 107 mmol/L 110 (H) CO2 22 - 32 mmol/L 17 (L) BUN 6 - 20 mg/dL 4 (L) Creatinine 0.5 - 1.0 mg/dL 0.4 (L) Estimated Glomerular Filtration Rate >=60 mL/min >90 Anion Gap 7 - 15 mmol/L 11 Glucose 70 - 120 mg/dL 101 Calcium 8.4 - 10.2 mg/dL 8.0 (L) Lactate 0.4 - 2.0 mmol/L 1.7 Bicarbonate, Whole Blood 23.0 - 31.0 mmol/L 18.4 (L) D-Dimer <0.50 ug/mL FEU 0.80 (H) CBC Rpt !! WBC 4.00 - 10.80 K/uL 17.27 (H) HGB 12.0 - 15.3 g/dL 11.3 (L) Hemoglobin, Whole Blood 12.0 - 15.3 g/dL 11.4 (L) HCT 36.0 - 45.2 % 33.7 (L) MCV 81.5 - 97.5 fL 82.2 PLT 140 - 400 K/uL 1,101 (HH) !!: Data is critical (HH): Data is critically high (L): Data is abnormally low (H): Data is abnormally high Rpt: View report in Results Review for more information VASC DUPLEX VENOUS LE BILAT Order: [id number] Status: Final result Visible to patient: No (inaccessible in MyChart) Next appt: None 0 Result Notes Details Reading Physician Reading Date Result Priority Regulo Cohen MD [phone] 08/21/2023 Routine Narrative & Impression VASCULAR LAB RESULTS DATE OF EXAM: 08/21/23 PRESENTING CONDITIONS: Generalized Edema Immediately before proceeding with the vascular lab procedure reported below, the identity of the patient, the correct exam and the correct procedural site were verified. PHYSICIAN REPORT: Lower Extremity Venous Duplex Examination Color flow Doppler, spectral analysis, and transducer compression techniques were applied during this ultrasound image examination. RIGHT LOWER EXTREMITY On duplex examination, the right common femoral vein, the sapheno-femoral junction, the femoral vein in the thigh and popliteal vein are all free of internal echoes and demonstrate normal transducer compressibility during machado scale imaging and normal respiratory and augmentation response during Doppler interrogation. The limited view of posterior tibial veins demonstrate no evidence of thrombosis. Peroneal veins not identified due to wraps. LEFT LOWER EXTREMITY On duplex examination, the left common femoral vein, the sapheno-femoral junction, the femoral veinin the thigh, and popliteal vein are all free of internal echoes and demonstrate normal transducer compressibility during machado scale imaging and normal respiratory and augmentation response during Doppler interrogation. The limited view of posterior tibial veins demonstrate no evidence of thrombosis. Peroneal veins not identified due to wraps. IMPRESSION: Right lower extremity with no evidence of acute deep venous thrombosis. Left lower extremity with no evidence of acute deep venous thrombosis. Interventions/treatments: Pt was seen and examined at bedside. Introduces self and role as wound care nurse. Removed BLE dressings. Cleansed w/ soap & water. Dried. Applied Puracyn WTD to the open larger wounds and silvadene to the smaller areas. Secured in place w/ roll gauze and ramos wraps. Legs elevated on pillows to decrease swelling. Recommendations: Continue order as given by Dr. Babb. Would just add Puracyn to the WTD. Thank you for consult. Coordinated care w/ nursing staff. Call or TT w/ any questions or concerns. Jocy Fitzpatrick LPN,[facility] Licensed Practical Nurse, Wound Care Certified, Ostomy director records management Wound Care Resource Nurse 08/21/23 2:31 PM * Mj Anthony MD - 08/21/2023 7:40 AM ESTAssociated Order(s): HEMATOLOGY CONSULT IP CONSULT - Oncology [address] [address] Name: Soco Guevara Location: [facility] [id number] Date: 08/21/2023 Time: 7:40 AM REQUESTING SERVICE: Hospitalist REASON FOR CONSULT: severe thrombocytosis, consider hematologic malignancy REFERRING PHYSICIAN: Magali Cerrato MD DIAGNOSIS 1. Thrombocytosis probably reactive secondary to chronic GI blood loss but possibly with contribution from coincident primary myeloproliferative disorder. 2. Chronic duodenitis, small-bowel enteritis versus exacerbation of celiac disease, recognized on biopsy 01/13/2023 and previous PET scan 01/20/2023. 3. Chronic lower extremity lymphedema. 4. Chronic lower extremity cutaneous ulcers. 5. Elevated kappa free light chains, negative PET scan from myeloma. HISTORY OF PRESENT ILLNESS: 48-year-old white female admitted through the ED complaining of progressive weakness, inability to stand up without assistance and worsening for several months much more severe in the previous week. Comorbidities include iron deficiency anemia with reactive thrombocytosis and chronic lymphedema both lower extremities and chronic leg ulcers. She had also had a sore throat for 1 week and was shortof breath at night with occasional diarrhea which she has had for years. Patient had been seen in [facility] in the past and most recently in March of 2023. She hadbeen given intravenous iron 300 mg Venofer weekly x4 from 01/16/2023 through 02/06/2023 for iron deficiency secondary to chronic celiac disease but never had thrombocytosis above 600,000. Currently value was over 1,000,000. Patient also has chronic cough and is adherent to a gluten free diet. Patient denies melena, hematochezia, hematuria, vaginal bleeding, epistaxis, or hemoptysis. Urine is normal color. Patient is nottaking iron supplements. She has had occasional abdominal swelling without nausea or vomiting. Chronic diarrhea persists but not worse than usual. Appetite is good with no easy satiety that is persistent. PAST MEDICAL HISTORY: No past medical history on file. PAST SURGICAL HISTORY: Past Surgical History: Procedure Laterality Date COLONOSCOPY, DIAGNOSTIC (RECTUM) N/A 01/13/2023 poor prep/diverticulosis/hemorrhoids/COLONOSCOPY FLEXIBLE PROXIMAL DIAGNOSTIC performed by Tyler Perez MD at ENDOSCOPY [facility] EGD, FLEXIBLE, DIAGNOSTIC N/A 01/13/2023 esophageal mucosal changes secondary to EOE/biopsies show celiac disease/ESOPHAGOGASTRODUODENOSCOPY(EGD), FLEXIBLE, TRANSORAL, DIAGNOSTIC performed by Tyler Perez MD at [facility]COPY [facility] FAMILY HISTORY: Family History Problem Relation Age [...] PHYSICAL EXAM: Most Recent Vital Signs: BP: 102 mmHg/65 mmHg (08/21/23 0500) Pulse: 69 (08/21/23 0500) Temp: 37.61 C (08/21/23 0155) Resp: 18 (08/21/23 0500) SpO2: 97 % (08/21/23 0155) PE: ECOG PS 2 PHYSICAL EXAMINATION: FERTILITY: General Appearance: Chronically ill-appearing with a hoarse voice. Vitals were reviewed. No icterus HEENT: No oral or pharyngeal masses, ulceration or thrush noted, no sinus tenderness. Neck is supple with no thyromegaly or JVD noted. Lymph Nodes: No lymphadenopathy noted in the occipital, pre and post auricular, cervical, supra andinfraclavicular, axillary, epitrochlear, inguinal, and popliteal region. Breasts: Not examined. Lungs/Thorax: No rales, rhonchi, or dullness to percussion. Heart: Regular rate and rhythm, normal S1, S2, no appreciable murmurs, rubs, gallops Abdomen: Soft, nontender, bowel sounds present, no appreciable hepatosplenomegaly, no palpable masses. Slight distention with positive fluid wave. Extremities: Lower extremity stasis ulcers without bleeding. Skin: Normal skin tone with no rash, petechiae, ecchymosis noted. Musculoskeletal: No pain on palpation over bony prominence, no edema, no evidence of gout, no jointor bony deformity Neurologic: No focal sensory or motor deficits. LABS: Labs reviewed as indicated below: Latest Reference Range & Units 08/21/23 03:31 Temperature C 37.0 pH, Venous 7.320 - 7.430 units 7.410 pCO2, Venous 40.0 - 60.0 mmHg 29.6 (L) pO2, Venous 25.0 - 50.0 mmHg 61.3 (H) O2 Content, Venous 7.0 - 18.0 %vol 14.2 Oxyhemoglobin, Venous 40.0 - 85.0 % total Hgb 88.4 (H) Base Excess, Venous -2.0 - 2.0 mmol/L -4.8 (L) Carboxyhemoglobin, Whole Blood <=1.5 % total Hgb 1.0 Methemoglobin, Whole Blood <=1.5 % total Hgb 0.9 Reduced Hemoglobin, Venous % total Hgb 9.7 Sodium 135 - 146 mmol/L 138 Potassium 3.5 - 5.1 mmol/L 3.9 Chloride 98 - 107 mmol/L 110 (H) CO2 22 - 32 mmol/L 17 (L) BUN 6 - 20 mg/dL 4 (L) Creatinine 0.5 - 1.0 mg/dL 0.4 (L) Estimated Glomerular Filtration Rate >=60 mL/min >90 Anion Gap 7 - 15 mmol/L 11 Glucose 70 - 120 mg/dL 101 Calcium 8.4 - 10.2 mg/dL 8.0 (L) Lactate 0.4 - 2.0 mmol/L 1.7 Bicarbonate, Whole Blood 23.0 - 31.0 mmol/L 18.4 (L) D-Dimer <0.50 ug/mL FEU 0.80 (H) Hemoglobin, Whole Blood 12.0 - 15.3 g/dL 11.4 (L) [facility] Reference Range & Units 03/22/23 08:10 08/18/23 19:47 08/19/23 06:18 08/20/23 06:01 08/20/23 15:16 08/21/23 03:31 08/21/23 03:32 WBC 4.00 - 10.80 K/uL 9.30 14.68 (H) 14.97 (H) 16.32 (H) 17.27 (H) HGB 12.0 - 15.3 g/dL 11.1 (L) 12.8 11.3 (L) 11.9 (L) 11.3 (L) Hemoglobin, Whole Blood 12.0 - 15.3 g/dL 11.4 (L) HCT 36.0 - 45.2 % 35.4 (L) 38.4 32.1 (L) 34.6 (L) 33.7 (L) MCV 81.5 - 97.5 fL 77.6 85.3 82.5 82.8 82.2 PLT 140 - 400 K/uL 537 (H) 1,192 (HH) 1,089 (HH) 1,147 (HH) 1,101 (HH) Absolute Neutrophils 1.80 - 7.70 K/uL 6.95 10.56 (H) Absolute Lymphocytes 1.00 - 4.80 K/ul 0.85 (L) 1.67 Absolute Monocytes 0.00 - 1.10 K/uL 1.33 (H) 1.88 (H) Absolute Eosinophils 0.00 - 0.70 K/uL 0.06 0.33 Absolute Basophils 0.00 - 0.20 K/uL 0.06 0.11 IRON SCREEN, INCLUDING TIBC Rpt ! Iron 33 - 151 ug/dL 16 (L) Iron Binding Capacity 250 - 425 ug/dL 180 (L) Transferrin Saturation Percent 15 - 55 % 9 (L) Ferritin 13 - 150 ng/mL 1,303 (H) 45 Vitamin B12 232 - 1,245 pg/mL 540 Folic Acid >4.5 ng/mL 3.7 (L) Immature Reticuloctye Fraction 2.5 - 20.6 % 19.0 Reticulocyte Hemoglobin 29.7 - 37.4 pg 24.9 (L) Absolute Reticulocyte 31.3 - 100.1 K/uL 47.5 Reticulocyte Percent 0.80 - 1.90 % 1.07 Latest Reference Range & Units 01/09/23 07:52 08/20/23 15:16 Immunofixation Interpretation This result contains rich text formatting which cannot be displayed here. SERUM IMMUNOFIXATION Rpt IgA 70 - 400 mg/dL 407 (H) 315 IgG 700 - 1,600 mg/dL 1,345 915 IgM 40 - 230 mg/dL 108 61 [place] Free Light Chains, Serum 3.30 - 19.40 mg/L 45.50 (H) [place] Lambda Free Light Chains Ratio 0.26 - 1.65 1.23 Lambda Free Light Chains, Serum 5.71 - 26.30 mg/L 37.14 (H) SERUM PROTEIN ELECTROPHORESIS REFLEX PROFILE Rpt ! Rpt Latest Reference Range & Units 08/21/23 03:31 D-Dimer <0.50 ug/mL FEU 0.80 (H) RADIOLOGY: IMPRESSION: CT chest 08/19/2023 No acute thoracic abnormality identified. IMPRESSION: CT abdomen pelvis 08/19/2023 1. Fluid-filled small and large bowel. Correlate with any history of diarrheal illness. No significant bowel wall thickening. 2. Mild mesenteric lymphadenopathy and mesenteric fat stranding overall similar to prior exam on 12/19/2022. Findings could be related to mild enteritis. 3. Findings concerning for possible pelvic venous insufficiency, correlate with any history of chronic pelvic pain IMPRESSION: CT head 08/18/2023 No acute intracranial abnormality. IMPRESSION: PET scan 01/20/2023 1. Lucent lesions in the spine are without associated activity, likely representing vertebral body hemangiomas. 2. Fluid distended small bowel with a degree of jejunoileal fold reversal, as well as multiple prominent mesenteric lymph nodes, including one with low attention cavitation. This constellation of findings can be seen with Celiac disease, noting question of celiac disease on recent duodenal biopsy and equivocal serology. IMPRESSION: Ultrasound abdomen 05/10/2019 Probable gallbladder polyp. COLONOSCOPY 01/13/2023: Impression: - Preparation of the colon was fair. - Diverticulosis in the sigmoid colon. - Internal hemorrhoids. - The examination was otherwise normal on direct and retroflexion views. - No specimens collected PATHOLOGY: SURGICAL PATHOLOGY: [id number] 01/13/2023 Order: [id number] Status: Final result Visible to patient: No (inaccessible in MyChart) Next appt: None 0 Result Notes 1 Follow-up Encounter Component Final Diagnosis A. [...] eosinophilia identified. No columnar mucosa present for evaluation ASSESSMENT: 1. Thrombocytosis probably reactive secondary to chronic GI blood loss but possibly with contribution from coincident primary myeloproliferative disorder. 2. Chronic duodenitis, small-bowel enteritis versus exacerbation of celiac disease, recognized on biopsy 01/13/2023 and previous PET scan 01/20/2023. 3. Chronic lower extremity lymphedema. 4. Chronic lower extremity cutaneous ulcers. 5. Elevated kappa free light chains, negative PET scan from myeloma. PLAN: 1. Myeloproliferative disease panel ordered along with soluble transferrin receptor to evaluate iron stores, elevated ferritin probably representing an acute phase reactant. 2. GI consult 3. No therapeutic intervention at this time. 4. Followup in etiology clinic after discharge. Patient has been followed in the past by I appreciate the opportunity of sharing in her care. The above was dictated using voice recognition software. Errors may have inadvertently been overlooked after review. * Jessica Colon PA-C - 08/21/2023 4:40 AM ESTAssociated Order(s): GASTROENTEROLOGY CONSULT IP CONSULT - Gastroenterology [facility] [id number] Name: Soco Guevara Location: [facility] [id number] Date: 08/21/2023 Time: 4:40 AM REQUESTING SERVICE: Medicine REASON FOR CONSULT: Dysphagia and Celiac disease HPI: Soco Guevara is a 48 year old female with PMHx iron deficiency anemia, thrombocytosis (thought to be reactive to anemia), chronic lymphedema in lower legs and chronic leg ulcers, admitted aftercoming in with progressive weakness. As an inpt has been having incomplete CHB and cards has evaluated her. She has lymphedema and leg wounds and these are being treated; wrapped currently; on ABX. We are asked to see her for history of celiac disease, dysphagia. She underwent EGD and colonoscopyin January 2023, at that time was felt to have EOE on endoscopy, however esophageal biopsies showed reflux esophagitis, and duodenal bx suggestive of active chronic duodenitis w/ erosion and villous atrophy; TTG was equivocal. She was advised to be on gluten free diet and come to the clinic for f/u. She declined office visit for follow-up, and instead states that she follows with a natural medicine doctor, and has been on a gluten free diet ever since then. She states she has intermittent diarrhea, can have maybe 2-3 loose BMs per day. Denies melena hematochezia or hematemesis. Pt has severe thrombocytosis. Sees hematology; had lucent spinal lesions concerning for Mets or mm,as well as elevated kappa light chains. Had PET-CT in January 2023, no focal activity. As inpt PLT count over 1,000,000; hematology consult as inpt is pending. HGB is 11.3 (not far from baseline), WBC 17k. INR WNL, ALP 144 but otherwise transaminases and bilirubin unremarkable. Ferritin is 45, FA is low, and vitamin B12 WNL. Celiac disease panel is negative including TTG. CTAP w/ fluid filled small/large bowel, an mild mesenteric FLAVOR TANK TENDER. Having issues with hypotension, but concern for volume overload w/ leg edema. C diff testing is negative. GI pathogen panel is pending. Patient states she is intermittent dysphagia depends on what she eats, but it is not an everyday occurrence. Denies nausea vomiting, fevers or chills, chest pain or shortness of breath. Has had longstanding leg edema. Tolerating her diet; she ate her whole breakfast tray today. EGD 01/2023: - Esophageal mucosal changes secondary [...] performed by Tyler Perez MD at [facility]COPY [facility] EGD, FLEXIBLE, DIAGNOSTIC N/A 01/13/2023 esophageal mucosal changes secondary to EOE/biopsies show celiac disease/ESOPHAGOGASTRODUODENOSCOPY(EGD), FLEXIBLE, TRANSORAL, DIAGNOSTIC performed by Tyler Perez MD at [facility]OSCOPY [facility] Social History: Social History Tobacco Use Smoking [...] EXAMINATION: Most Recent Vital Signs: BP: 94 mmHg/56 mmHg (08/21/23154) Pulse: 84 (08/21/23154) Temp: 37.61 C (08/21/23154) Resp: 26 (08/21/23154) SpO2: 97 % (08/21/23154) Vital Signs Last 24 Hours: Systolic BP: Most Recent Systolic BP Av.9 mmHg Min: 80 mmHg Max: 97 mmHg Temperature: Most Recent Temperature Av.3 C Min: 36.5 C Max: 37.72 C Pulse: Pulse Av.4 Min: 73 Max: 84 Respirations: Resp Av.4 Min: 18 Max: 40 SpO2: SpO2 Av.8 % Min: 95 % Max: 100 % Constitutional: no acute distress, (+) chronically ill HEENT: normal: normocephalic, atraumatic; no masses, tenderness, or adenopathy Eyes: no scleral icterus, redness, or injection Neck: supple, normal range of motion CV: normal rate and rhythm, no murmur, gallops or rub Chest: normal respiratory effort Abdomen: normal: soft, bowel sounds normal, no masses, tenderness or appreciable ascites Extremities: lower legs are wrapped in RAMOS wrap; + BLE edema Skin: warm and dry, no rashes Neuro: normal mental status exam Psych: normal mood and affect, memory normal LABS: Labs reviewed. Recent Results (from the past 24 hour(s)) VANCOMYCIN RANDOM Collection Time: 08/20/23 6:01 AM Result Value Ref Range Vancomycin Random 12.3 10.0 - 40.0 ug/mL CBC Collection Time: 08/20/23 6:01 AM Result Value Ref Range WBC 16.32 (H) 4.00 - 10.80 K/uL RBC 4.18 3.85 - 5.15 M/uL HGB 11.9 (L) 12.0 - 15.3 g/dL HCT 34.6 (L) 36.0 - 45.2 % MCV 82.8 81.5 - 97.5 fL MCH 28.5 27.0 - 34.0 pg MCHC 34.4 32.0 - 36.0 g/dL RDW 16.8 11.5 - 15.5 % PLT 1,147 (HH) 140 - 400 K/uL MPV 8.8 6.6 - 11.1 fL nRBCs 0 <=0 /100 WBCs BASIC METABOLIC PANEL Collection Time: 08/20/23 6:01 AM Result Value Ref Range BUN 4 (L) 6 - 20 mg/dL Creatinine 0.5 0.5 - 1.0 mg/dL Estimated Glomerular Filtration Rate >90 >=60 mL/min Sodium 141 135 - 146 mmol/L Potassium 4.1 3.5 - 5.1 mmol/L Chloride 112 (H) 98 - 107 mmol/L CO2 20 (L) 22 - 32 mmol/L Anion Gap 9 7 - 15 mmol/L Glucose 86 70 - 120 mg/dL Calcium 8.3 (L) 8.4 - 10.2 mg/dL IMMUNOGLOBULIN QUANTITATIVE Collection Time: 08/20/23 3:16 PM Result Value Ref Range IgG 915 700 - 1,600 mg/dL IgA 315 70 - 400 mg/dL IgM 61 40 - 230 mg/dL FERRITIN Collection Time: 08/20/23 3:16 PM Result Value Ref Range Ferritin 45 13 - 150 ng/mL VITAMIN B12 Collection Time: 08/20/23 3:16 PM Result Value Ref Range Vitamin B12 540 232 - 1,245 pg/mL FOLIC ACID Collection Time: 08/20/23 3:16 PM Result Value Ref Range Folic Acid 3.7 (L) >4.5 ng/mL D-DIMER Collection Time: 08/21/23 3:31 AM Result Value Ref Range D-Dimer 0.80 (H) <0.50 ug/mL FEU BLOOD GAS, VENOUS Collection Time: 08/21/23 3:31 AM Result Value Ref Range Temperature 37.0 C pH, Venous 7.410 7.320 - 7.430 units pCO2, Venous 29.6 (L) 40.0 - 60.0 mmHg pO2, Venous 61.3 (H) 25.0 - 50.0 mmHg Base Excess, Venous -4.8 (L) -2.0 - 2.0 mmol/L Hemoglobin, Whole Blood 11.4 (L) 12.0 - 15.3 g/dL Oxyhemoglobin, Venous 88.4 (H) 40.0 - 85.0 % total Hgb Carboxyhemoglobin, Whole Blood 1.0 <=1.5 % total Hgb Methemoglobin, Whole Blood 0.9 <=1.5 % total Hgb Reduced Hemoglobin, Venous 9.7 % total Hgb O2 Content, Venous 14.2 7.0 - 18.0 %vol Bicarbonate, Whole Blood 18.4 (L) 23.0 - 31.0 mmol/L LACTATE Collection Time: 08/21/23 3:31 AM Result Value Ref Range Lactate 1.7 0.4 - 2.0 mmol/L BASIC METABOLIC PANEL Collection Time: 08/21/23 3:31 AM Result Value Ref Range BUN 4 (L) 6 - 20 mg/dL Creatinine 0.4 (L) 0.5 - 1.0 mg/dL Estimated Glomerular Filtration Rate >90 >=60 mL/min Sodium 138 135 - 146 mmol/L Potassium 3.9 3.5 - 5.1 mmol/L Chloride 110 (H) 98 - 107 mmol/L CO2 17 (L) 22 - 32 mmol/L Anion Gap 11 7 - 15 mmol/L Glucose 101 70 - 120 mg/dL Calcium 8.0 (L) 8.4 - 10.2 mg/dL CBC Collection Time: 08/21/23 3:32 AM Result Value Ref Range WBC 17.27 (H) 4.00 - 10.80 K/uL RBC 4.10 3.85 - 5.15 M/uL HGB 11.3 (L) 12.0 - 15.3 g/dL HCT 33.7 (L) 36.0 - 45.2 % MCV 82.2 81.5 - 97.5 fL MCH 27.6 27.0 - 34.0 pg MCHC 33.5 32.0 - 36.0 g/dL RDW 16.3 11.5 - 15.5 % PLT 1,101 (HH) 140 - 400 K/uL MPV 8.5 6.6 - 11.1 fL nRBCs 0 <=0 /100 WBCs IMAGING: CT CHEST W CONTRAST Final Result PROCEDURE INFORMATION: Exam: CT Chest With Contrast; Diagnostic Exam date and time: 08/19/2023 9:25 AM Age: 48 years old Clinical indication: Abdominal pain; Chest pressure; Additional info: Sepsis with unclear source TECHNIQUE: Imaging protocol: Diagnostic computed tomography of the chest with contrast. 3D rendering (Not supervised by radiologist): MIP and/or 3D reconstructed images were created by the technologist. Radiation optimization: All CT scans at this facility use at least one of these dose optimization techniques: automated exposure control; mA and/or kV adjustment per patient size (includes targeted exams where dose is matched to clinical indication); or iterative reconstruction. Contrast material: OPTIRAY; Contrast volume: 320 ml; Contrast route: INTRAVENOUS (IV); COMPARISON: 1. CT PET^[facility] ([facility]) 01/20/2023 2:48 PM [address] PT PET CT WHOLE BODY 01/20/2023 1:45 PM FINDINGS: Lungs: No significant airspace consolidation concerning for pneumonia. Minimal dependent bibasilar atelectasis. Pleural spaces: Unremarkable. No pneumothorax. No pleural effusion. Heart: The heart is within normal limits for size. There is no evidence of pericardial abnormality. Coronary arteries: Trace coronary artery calcifications noted. Lymph nodes: Unremarkable. No enlarged lymph nodes. Vasculature: Unremarkable. Bones/joints: Stable 1.7 cm round lytic lesion noted in the T9 vertebral body, again noted. Soft tissues: Unremarkable. IMPRESSION IMPRESSION: No acute thoracic abnormality identified. PROCEDURE INFORMATION: Exam: CT Abdomen And Pelvis With Contrast Exam date and time: 08/19/2023 9:25 AM Age: 48 years old Clinical indication: Abdominal pain; Chest pressure; Additional info: Sepsis with unclear source TECHNIQUE: Imaging protocol: Computed tomography of the abdomen and pelvis with contrast. 3D rendering (Not supervised by radiologist): MIP and/or 3D reconstructed images were created by the technologist. Radiation optimization: All CT scans at this facility use at least one of these dose optimization techniques: automated exposure control; mA and/or kV adjustment per patient size (includes targeted exams where dose is matched to clinical indication); or iterative reconstruction. Contrast material: OPTIRAY; Contrast volume: 320 ml; Contrast route: INTRAVENOUS (IV); COMPARISON: CT PET^[facility] ([facility]) 01/20/2023 2:48 PM COMPARISON MORE: CT CHEST/ABDOMEN/PELVIS WITH IV CONTRAST WITH ORAL CONTRAST 12/19/2022 6:17 PM FINDINGS: Liver: Area of hypoattenuation along the anterior margin of the liver adjacent to the falciform ligament consistent with focal fatty infiltration. The liver is normal in size and contour. Gallbladder and bile ducts: The gallbladder appears unremarkable. No intra- or extra-hepatic biliary ductal dilatation. Pancreas: The pancreas appears normal. Spleen: The spleen appears normal. Adrenal glands: The adrenals appear normal. Kidneys and ureters: The kidneys enhance symmetrically and empty into non-dilated ureters. Stomach and bowel: The stomach appears unremarkable. Fluid-filled small and large bowel. Correlate with any history of diarrheal illness. No significant bowel wall thickening. Appendix: No signs of appendicitis. Intraperitoneal space: Trace mesenteric fat stranding similar to prior exam on 12/19/2022. Vasculature: Proximal left ovarian vein measures up to 14 mm in diameter prominent periuterine veins measuring up to 10 mm in diameter. Lymph nodes: A few mildly prominent but not significantly enlarged mesenteric lymph nodes, similar to prior exam on 12/19/2022. Solitary enlarged low-density lymph node measuring up to 1.5 cm in the short axis in the mesentery (axial series 2, image 176), similar to prior exam. Urinary bladder: The bladder is distended and demonstrates no focal contour abnormality. Reproductive: Unremarkable as visualized. Bones/joints: Lumbarized S1 vertebral body. The last fully formed intervertebral disc space is S1-2. Bilateral pars defects at L5 with trace grade 1 anterolisthesis of L5 on S1 by approximately 3 mm. Subtle 9 mm lytic lesion at L1 again noted. 5 mm lytic lesion in the L4 vertebral body again noted. Soft tissues: Unremarkable. IMPRESSION: 1. Fluid-filled small and large bowel. Correlate with any history of diarrheal illness. No significant bowel wall thickening. 2. Mild mesenteric lymphadenopathy and mesenteric fat stranding overall similar to prior exam on 12/19/2022. Findings could be related to mild enteritis. 3. Findings concerning for possible pelvic venous insufficiency, correlate with any history of chronic pelvic pain. THIS DOCUMENT HAS BEEN ELECTRONICALLY SIGNED BY JOLIE MARY MD CT ABD/PELVIS W IV CONTRAST - WO ORAL CONTRAST Final Result PROCEDURE INFORMATION: Exam: CT Chest With Contrast; Diagnostic Exam date and time: 08/19/2023 9:25 AM Age: 48 years old Clinical indication: Abdominal pain; Chest pressure; Additional info: Sepsis with unclear source TECHNIQUE: Imaging protocol: Diagnostic computed tomography of the chest with contrast. 3D rendering (Not supervised by radiologist): MIP and/or 3D reconstructed images were created by the technologist. Radiation optimization: All CT scans at this facility use at least one of these dose optimization techniques: automated exposure control; mA and/or kV adjustment per patient size (includes targeted exams where dose is matched to clinical indication); or iterative reconstruction. Contrast material: OPTIRAY; Contrast volume: 320 ml; Contrast route: INTRAVENOUS (IV); COMPARISON: 1. CT PET^[facility] ([facility]) 01/20/2023 2:48 PM 2[address] PT PET CT WHOLE BODY 01/20/2023 1:45 PM FINDINGS: Lungs: No significant airspace consolidation concerning for pneumonia. Minimal dependent bibasilar atelectasis. Pleural spaces: Unremarkable. No pneumothorax. No pleural effusion. Heart: The heart is within normal limits for size. There is no evidence of pericardial abnormality. Coronary arteries: Trace coronary artery calcifications noted. Lymph nodes: Unremarkable. No enlarged lymph nodes. Vasculature: Unremarkable. Bones/joints: Stable 1.7 cm round lytic lesion noted in the T9 vertebral body, again noted. Soft tissues: Unremarkable. IMPRESSION IMPRESSION: No acute thoracic abnormality identified. PROCEDURE INFORMATION: Exam: CT Abdomen And Pelvis With Contrast Exam date and time: 08/19/2023 9:25 AM Age: 48 years old Clinical indication: Abdominal pain; Chest pressure; Additional info: Sepsis with unclear source TECHNIQUE: Imaging protocol: Computed tomography of the abdomen and pelvis with contrast. 3D rendering (Not supervised by radiologist): MIP and/or 3D reconstructed images were created by the technologist. Radiation optimization: All CT scans at this facility use at least one of these dose optimization techniques: automated exposure control; mA and/or kV adjustment per patient size (includes targeted exams where dose is matched to clinical indication); or iterative reconstruction. Contrast material: OPTIRAY; Contrast volume: 320 ml; Contrast route: INTRAVENOUS (IV); COMPARISON: CT PET^[facility]) 01/20/2023 2:48 PM COMPARISON MORE: CT CHEST/ABDOMEN/PELVIS WITH IV CONTRAST WITH ORAL CONTRAST 12/19/2022 6:17 PM FINDINGS: Liver: Area of hypoattenuation along the anterior margin of the liver adjacent to the falciform ligament consistent with focal fatty infiltration. The liver is normal in size and contour. Gallbladder and bile ducts: The gallbladder appears unremarkable. No intra- or extra-hepatic biliary ductal dilatation. Pancreas: The pancreas appears normal. Spleen: The spleen appears normal. Adrenal glands: The adrenals appear normal. Kidneys and ureters: The kidneys enhance symmetrically and empty into non-dilated ureters. Stomach and bowel: The stomach appears unremarkable. Fluid-filled small and large bowel. Correlate with any history of diarrheal illness. No significant bowel wall thickening. Appendix: No signs of appendicitis. Intraperitoneal space: Trace mesenteric fat stranding similar to prior exam on 12/19/2022. Vasculature: Proximal left ovarian vein measures up to 14 mm in diameter prominent periuterine veins measuring up to 10 mm in diameter. Lymph nodes: A few mildly prominent but not significantly enlarged mesenteric lymph nodes, similar to prior exam on 12/19/2022. Solitary enlarged low-density lymph node measuring up to 1.5 cm in the short axis in the mesentery (axial series 2, image 176), similar to prior exam. Urinary bladder: The bladder is distended and demonstrates no focal contour abnormality. Reproductive: Unremarkable as visualized. Bones/joints: Lumbarized S1 vertebral body. The last fully formed intervertebral disc space is S1-2. Bilateral pars defects at L5 with trace grade 1 anterolisthesis of L5 on S1 by approximately 3 mm. Subtle 9 mm lytic lesion at L1 again noted. 5 mm lytic lesion in the L4 vertebral body again noted. Soft tissues: Unremarkable. IMPRESSION: 1. Fluid-filled small and large bowel. Correlate with any history of diarrheal illness. No significant bowel wall thickening. 2. Mild mesenteric lymphadenopathy and mesenteric fat stranding overall similar to prior exam on 12/19/2022. Findings could be related to mild enteritis. 3. Findings concerning for possible pelvic venous insufficiency, correlate with any history of chronic pelvic pain. THIS DOCUMENT HAS BEEN ELECTRONICALLY SIGNED BY JOLIE MARY MD XR T SPINE AP AND LATERAL Final Result PROCEDURE INFORMATION: Exam: XR Thoracic Spine Exam date and time: 08/18/2023 8:06 PM Age: 48 years old Clinical indication: Other: Abnormal lesions on her spine in the past and now having more trouble walking TECHNIQUE: Imaging protocol: Radiologic exam of the thoracic spine. Views: 2 views. COMPARISON: CT PET^[facility] (Adult) 01/20/2023 2:48 PM FINDINGS: Bones/joints: Mild chronic appearing compression deformities of the thoracic spine. Thoracic vertebral bodies are well aligned. No acute fracture. Mild degrees of thoracic disc height loss. No aggressive bone lesion identified. Soft tissues: Unremarkable. IMPRESSION IMPRESSION: No acute findings. THIS DOCUMENT HAS BEEN ELECTRONICALLY SIGNED BY TOR MCKEON MD XR L SPINE AP AND LATERAL Final Result PROCEDURE INFORMATION: Exam: XR Lumbosacral Spine Exam date and time: 08/18/2023 8:06 PM Age: 48 years old Clinical indication: Other: Abnormal lesions on her spine in the past and now having more trouble walking TECHNIQUE: Imaging protocol: Radiologic exam of the lumbosacral spine. Views: 2 or 3 views. COMPARISON: CT PET^[facility] (Adult) 01/20/2023 2:48 PM FINDINGS: Bones/joints: Transitional lumbosacral type anatomy. For the purposes of lumbar spine numbering, there is a hypoplastic right rib at L1. By this numbering, there is a lumbarized appearance of the S1 vertebral body. There is a 5 mm grade 1 anterolisthesis of L5 on S1 with L5 pars defects. Lumbar vertebral body heights are unremarkable. No acute fracture. No significant lumbar disc height loss. No aggressive bone lesion. Soft tissues: Unremarkable. IMPRESSION IMPRESSION: No acute findings. THIS DOCUMENT HAS BEEN ELECTRONICALLY SIGNED BY TOR MCKEON MD XR TIB/FIB 2 VIEWS Final Result PROCEDURE INFORMATION: Exam: XR Left Tibia and Fibula Exam date and time: 08/18/2023 8:06 PM Age: 48 years old Clinical indication: Other: Deep wounds on both legs TECHNIQUE: Imaging protocol: Radiologic exam of the left tibia and fibula. Views: 2 views. COMPARISON: CT PET^[facility] (Adult) 01/20/2023 2:48 PM FINDINGS: Bones/joints: No acute fracture or dislocation. No bone erosion. No significant degenerative joint disease. Osteopenia. Soft tissues: Diffuse soft tissue edema. Multiple soft tissue defects. IMPRESSION IMPRESSION: No acute osseous abnormality. THIS DOCUMENT HAS BEEN ELECTRONICALLY SIGNED BY TOR MCKEON MD XR CHEST 1 VIEW Final Result PROCEDURE INFORMATION: Exam: XR Chest Exam date and time: 08/18/2023 8:06 PM Age: 48 years old Clinical indication: Other: Difficulty walking/weakness TECHNIQUE: Imaging protocol: Radiologic exam of the chest. Views: 1 view. COMPARISON: CT CHEST/ABDOMEN/PELVIS WITH IV CONTRAST WITH ORAL CONTRAST 12/19/2022 6:17 PM FINDINGS: Lungs: Unremarkable. No consolidation. Pleural spaces: Unremarkable. No pleural effusion. No pneumothorax. Heart/Mediastinum: Unremarkable. No cardiomegaly. Bones/joints: Unremarkable. IMPRESSION IMPRESSION: No acute cardiopulmonary disease. THIS DOCUMENT HAS BEEN ELECTRONICALLY SIGNED BY TOR MCKEON MD CT HEAD/BRAIN WO CONTRAST Final Result PROCEDURE INFORMATION: Exam: CT Head Without Contrast Exam date and time: 08/18/2023 7:56 PM Age: 48 years old Clinical indication: Pain; Headache; Additional info: Difficulty walking and using her legs, abnormal lesions on her spine in the past TECHNIQUE: Imaging protocol: Computed tomography of the head without contrast. Radiation optimization: All CT scans at this facility use at least one of these dose optimization techniques: automated exposure control; mA and/or kV adjustment per patient size (includes targeted exams where dose is matched to clinical indication); or iterative reconstruction. COMPARISON: CT PET^[facility] (Adult) 01/20/2023 2:48 PM FINDINGS: Brain: [place] white differentiation is unremarkable. No acute hemorrhage. No mass effect or midline shift. No finding to suggest an acute infarct. Cerebral ventricles: No hydrocephalus. Paranasal sinuses: Visualized sinuses are unremarkable. No fluid levels. Mastoid air cells: Visualized mastoid air cells are well aerated. Bones/joints: Unremarkable. No acute fracture. Soft tissues: Unremarkable. Vasculature: Atherosclerotic calcifications of the carotid arteries. IMPRESSION IMPRESSION: No acute intracranial abnormality. THIS DOCUMENT HAS BEEN ELECTRONICALLY SIGNED BY TOR MCKEON MD VASC DUPLEX VENOUS LE BILAT (Results Pending) VASC ANKLE BRACHIAL INDICES WITHOUT PPG (PAD) (Results Pending) IMPRESSION: Soco Guevara is a(n) 48 year old female with EGD 2022 concerning for duodenitis, villous atrophy on bx, equivocal TTG as OP; chronic ANASTASIA, thrombocytosis, chronic lower leg edema, leg ulcers, admitted with weakness and leg swelling. She has been having some issues with heart block and is under evaluation for that, as well as her leg ulcers and edema, and thrombocytosis (severe, PLT > 1 million) and leukocytosis. Here as an inpatient her celiac disease panel was actually negative.Her IgA is WNL. She has some chronic loose stool. She is following a celiac, gluten free diet as recommended. Though she complains of intermittent dysphagia, had no trouble eating her breakfast today. Her HGB is near baseline and she's had no evidence of GIB; colonoscopy last year was unremarkable. RECOMMENDATIONS/PLAN: - At this time unifying dx for her presentation not yet clear - W/ question of history of Celiac dz would continue on gluten free diet for now - Await GI pathogen panel - Would recommend daily PPI as on her endoscopy she had question of esophagitis - Will check HLA typing - If neg, would recommend w/u for non Celiac enteropathy (intestinal lymphoma, particularly given her hematology abnormalities, vs autoimmune, NSAIDs, peptic duodenitis, etc) - Consider timing of repeat EGD to assess healing - Repeat CT as her imaging here suggestive of mesenteric [employer] not yet defined I have discussed the case with my attending, Dr Perez. Associated attestation - Tyler Perez MD - 08/21/2023 2:34 PM EST I performed a history and physical examination of the patient, including specifically on physical exam - soft abomen. I have discussed the patient's management with CELESTE Tena.. Please refer to the physician program support assistant's note for the documented findings and plan of care. -agree with Haplotyping for celiac disease, patient also has concern for EOE. After discharge wouldfollow up EGD in 2 to 3 months for repeat biopsies of both the esophagus as well as duodenal. Continue gluten free diet and treatment of ulcers. Also with her conduction abnormalities agree with EP eval and recommendations. * Melissa Babb DO - 08/20/2023 12:42 PM ESTAssociated Order(s): GENERAL SURGERY CONSULT IP CONSULT - General Surgery [facility] [id number] Name: Soco Guevara Location: [facility] [id number] Date: 08/20/2023 Time: 12:42 PM REQUESTING SERVICE: Hospitalist REASON FOR CONSULT: Soco Guevara [facility] is seen at the request of Dr. Hernandez in consultation for extensive lower extremity wounds; may need unna boot. HISTORY OF PRESENT ILLNESS: Soco Guevara is a 48 y/o [place] female admitted 08/18/23 for weakness. She has a PMH of iron deficiency anemia, thrombocytosis (thought to be reactive to anemia), chronic lymphedema in lower legs and chronic leg ulcers. Patient states she has had chronic LE swelling and wounds for the mast 6-12 months. She has been seen by doctors for this and was using a silver dressing. Some wounds have healed, but new wounds have developed. She does not think she has had any arterial or venous studies. DeniesPMH diabetes. HOSPITAL PROBLEM LIST: Principal Problem: Generalized weakness (POA: Yes) Active Problems: Lymphedema (POA: Yes) Venous stasis ulcers of both lower extremities (HCC) (POA: Yes) Sore throat (POA: Yes) Thrombocytosis (POA: Yes) Celiac disease (POA: Yes) Malnutrition of moderate degree (HCC) (POA: Unknown) Intermittent complete atrioventricular block (HCC) (POA: Unknown) POA = Present On Admission PAST MEDICAL HISTORY: No past medical history on file. PAST SURGICAL HISTORY: Past Surgical History: Procedure Laterality Date COLONOSCOPY, DIAGNOSTIC (RECTUM) N/A 01/13/2023 poor prep/diverticulosis/hemorrhoids/COLONOSCOPY FLEXIBLE PROXIMAL DIAGNOSTIC performed by Tyler Perez MD at ENDOSCOPY [facility] EGD, FLEXIBLE, DIAGNOSTIC N/A 01/13/2023 esophageal mucosal changes secondary to EOE/biopsies show celiac disease/ESOPHAGOGASTRODUODENOSCOPY(EGD), FLEXIBLE, TRANSORAL, DIAGNOSTIC performed by Tyler Perez MD at [facility]OSCOPY [facility] FAMILY HISTORY: Family History Problem Relation Age of Onset Colon cancer Grandfather (Maternal) SOCIAL HISTORY: Social History Tobacco Use Smoking status: Never Smokeless tobacco: Never Vaping Use Vaping Use: Never used Substance Use Topics Alcohol use: Never Drug use: Never ALLERGIES: Monoferric [ferric derisomaltose] ROS: Constitutional: (+) fever and (-) otherwise negative All other systems reviewed and negative except as described in the HPI. PHYSICAL EXAMINATION: Most Recent Vital Signs: BP: 97 mmHg/63 mmHg (08/20/23 1158) Pulse: 79 (08/20/23 1158) Temp: 37.72 C (08/20/23 1158) Resp: 18 (08/20/23 1158) SpO2: 99 % (08/20/23 1158) Vital Signs Over Last 24 Hours: Systolic BP: Most Recent Systolic BP Av.4 mmHg Min: 79 mmHg Max: 110 mmHg Temperature: Most Recent Temperature Av.3 C Min: 36.5 C Max: 37.72 C Pulse: Pulse Av.7 Min: 68 Max: 84 Respirations: Resp Av Min: 18 Max: 22 SpO2: SpO2 Av.8 % Min: 97 % Max: 100 % Constitutional: no acute distress HEENT: normal: normocephalic, atraumatic; no masses, tenderness, or adenopathy Eyes: sclera and conjunctiva normal Neck: supple, normal range of motion CV: normal rate, normal rhythm Chest: normal respiratory effort Extremities: (+) bilateral lower extremities with 4+ edema below the knee, multiple bilateral open wounds with pink granulation tissue at base and ~25% fibrin Skin: warm: Neuro: alert, oriented to person, place, and time Psych: normal mood and affect, judgement normal LABS: Labs reviewed as indicated below: CHEMISTRY: BUN, Creatinine, GFR Estimated, Sodium, Potassium, Chloride, Carbon Dioxide, Glucose, Calcium (see below for most recent value): Lab Results Component Value Date/Time BUN 4 (L) 08/20/2023 06:01 AM CREAT 0.5 08/20/2023 06:01 AM NA 141 08/20/2023 06:01 AM POTASSIUM 4.1 08/20/2023 06:01 AM CL 112 (H) 08/20/2023 06:01 AM CO2 20 (L) 08/20/2023 06:01 AM CA 8.3 (L) 08/20/2023 06:01 AM BLOOD COUNT: WBC, Hgb, Platelets (see below for most recent value): Lab Results Component Value Date/Time WBC 16.32 (H) 08/20/2023 06:01 AM WBC 11.05 (H) 05/10/2019 04:06 PM HGB 11.9 (L) 08/20/2023 06:01 AM HGB 10.6 (L) 05/10/2019 04:06 PM PLT 1,147 (HH) 08/20/2023 06:01 AM PLT 1,124 (HH) 05/10/2019 04:06 PM IMAGING: Exam: XR Left Tibia and Fibula FINDINGS: Bones/joints: No acute fracture or dislocation. No bone erosion. No significant degenerative joint disease. Osteopenia. Soft tissues: Diffuse soft tissue edema. Multiple soft tissue defects. IMPRESSION: No acute osseous abnormality. IMPRESSION: 48 y/o female with chronic b/l LE edema and multiple open wounds PLAN: Recommend wet to dry dressings on larger wounds. Silvadene ointment on small wounds. Wrap with Kerlix and Ramos wrap. Dressing changes BID. Discussed with nursing. Keep legs elevated as much as possible. The cause of her edema/wounds is unclear to me. She has scarring of other wounds which have healed.May pursue ABIs and venous duplex studies on a non emergent basis. She should f/u in the wound clinic upon discharge. Outpatient studies are indicative of Celiac disease per hematology, and this should be further evaluated and treated by GI in order to optimize her nutrition for wound healing. She is also overdue for f/u with hematology. REFERRING PHYSICIAN: 1. Self PRIMARY CARE PHYSICIAN: LEONEL Price * Yadira Augustin RDN - 08/19/2023 1:50 PM ESTAssociated Order(s): NUTRITION SERVICES (DIETITIAN) CONSULT IP CLINICAL NUTRITION CONSULT/PROGRESS NOTE [address] [address] Name: Scoo Guevara Location: [facility] [id number] Date: 08/19/2023 Time: 1:50 PM How patient was identified (select 2): date and Name Discussed in interdisciplinary rounds: Yes Soco Guevara is a 48 year old female being seen for consult by provider, reduced dietary intake, and significant unintentional weight loss Primary Diagnosis: Generalized weakness Other pertinent information: Patient seen with family at bedside. Patient reports her appetite has been reduced lately, she will consume breakfast, but then not want to eat much for lunch or supper. Patient currently having difficulties with diarrhea. Patient has Hx of Celiac disease and she reports she follows a gluten free diet at home. We discussed foods that contain gluten, and foods to monitor for- pt agrees. Provided pt with educational handouts regarding Celiac disease and a gluten free diet. Patient allowed me to perform a nutrition focused physical exam today, and presents with some areasof severe muscle wasting. Patient does meet criteria for moderate malnutrition at this time and is willing to try liquacel. Will order and monitor for plan of care. -Update, pt with allergy to ferric derisomaltose, unable to order liquacel, changed to prostat max TID NUTRITION ASSESSMENT: Past medical/surgical history and medications reviewed. Food/Nutrition-Related History Diet: Gluten Free Previously followed diet: Gluten Free Food Allergies/Intolerances: Gluten Adult Energy Intake: Less than 75% of estimated energy requirement for greater than 7 days (moderate, acute illness). Oral Nutrition Supplement (ONS): None Pertinent medications/vitamins/minerals/supplements: Medications reviewed. No significant nutritionrelated medications noted. Pertinent Biochemical Data: Serum protein levels (albumin and prealbumin) frequently used in nutritional assessment are often inaccurate in the hospitalized patient and do not reflect nutritional status. Latest Reference Range & Units Most Recent Potassium 3.5 - 5.1 mmol/L 3.1 (L) 08/19/23 06:18 (L): Data is abnormally low K depleted, likely related to poor PO intakes, patient received potassium chloride this AM. Nutrition-Focused Physical Findings: Appearance: Ill-appearing and Thin Respiratory support: Supplemental O2 Delivery: Room Air, None Nasal/Oral: No issues identified Digestive: Abdominal distention and Appetite poor Last Bowel Movement: 08/19/23 (08/19/23 1100) Cognition: Awake, alert Skin: Intact Enteral access: None Nutrition Focused Physical Exam: NFPE completed on 08/19/2023 Subcutaneous Fat Loss: Orbital fat pads: WNL Buccal fat: WNL Tricep: WNL Rib: WNL Muscle Loss: Temples: Severe Clavicles: Mild Shoulders: Mild Scapula: Mild Interosseous: WNL Edema Location: Lower extremities;Both (08/19/23 1100) Edema Assessment: +2 - Description (08/19/231099) Anthropometrics Measurements Height: 162.6 cm (5' 4") (08/18/232199) Admission weight: 53.2 kg Weight: 53.2 kg (117 lb 4.6 oz) (08/19/23618) BMI: 19.76 (08/18/232199) Usual Body Weight: 52.3 kg Interpretation of Weight Change Prior to Admission: No recent/significant weight change Nutrition Prescription: Energy needs: 25-30 Kcal/kg Kcal/day: 1892-2914 Based on current weight Protein needs: 1.2-1.3 gm/kg Protein: 64-69 Based on current weight Fluid needs: 30 ml/kg Fluid: 1600 ml/day Based on current weight Malnutrition: Malnutrition Present: Yes (08/19/231406) Adult Malnutrition Classification: Moderate (08/19/231406) Malnutrition Characteristics: Inadequate energy intake;Muscle loss (08/19/231406) Malnutrition Care Plan: Patient meets ASPEN/AND criteria for moderate malnutrition. Plan to meet 75% of estimated calorie and 75% of estimated protein requirements via therapeutic diet and a nutrition intervention of oral nutrition supplements. If patient unable to achieve estimatedrequirements over next 7 days, will need to consider enteral nutrition. NUTRITION DIAGNOSIS: Malnutrition moderate related to chronic illness as evidenced by patient consuming less than 75% ofestimated energy requirements x 1 month and severe muscle loss. Goals: Patient to consume greater than 75 % of daily meals and 75% of daily supplements within 7 days. NUTRITION INTERVENTION/PLAN: Orders: Oral nutrition supplement added ProStat Max (1 oz, 80 calories, 11 grams protein, 60 mg phosphorus, 40 mg potassium) TID Education provided: Patient verbalized understanding and Other Education Material: Ashkan LemonMaterials Clinical Nutrition Recommendations: Diet: Continue current nutrition [...] Yadira Augustin, MS, RDN, LDN Clinical Dietitian [facility] Available via [place] Text [phone] * Fritz Groves DO - 08/19/2023 9:11 AM ESTAssociated Order(s): Cardiology Consult IP Cardiology CONSULT [facility] [address] Name: Soco Guevara Location: [facility] [id number] Date: 08/19/2023 Time: 9:11 AM Cardiology Consult IP Consult performed by: Fritz Groves DO Consult ordered by: Chuck Hernandez MD REQUESTING SERVICE: hospitalist REASON FOR CONSULT: intermittent CHB HPI: Pt seen this evening Pt has been having progressively worsening generalized weakness over the past few months but seems worse in the past few weeks finally prompting hospital visit; she also has been having more SOB and a sore throat Reports her usual pattern of diarrhea Pt having fevers She had a 6 second pause at 3:45am and 12am; on telemetry-reportedly asymptomatic was in the room a the time-BP was on the lower side Pt having diarrhea She tells me sometime today she was lightheaded and near syncope PAST MEDICAL HISTORY: Iron deficiency anemia Thrombocytosis thought to be due to reactive anemia Chronic lymphedema b/l LE with ulcers PAST SURGICAL HISTORY: Past Surgical History: Procedure Laterality Date COLONOSCOPY, DIAGNOSTIC (RECTUM) N/A 01/13/2023 poor prep/diverticulosis/hemorrhoids/COLONOSCOPY FLEXIBLE PROXIMAL DIAGNOSTIC performed by Tyler Perez MD at ENDOSCOPY [facility] EGD, FLEXIBLE, DIAGNOSTIC N/A 01/13/2023 esophageal mucosal changes secondary to EOE/biopsies show celiac disease/ESOPHAGOGASTRODUODENOSCOPY(EGD), FLEXIBLE, TRANSORAL, DIAGNOSTIC performed by Tyler Perez MD at ENDOSCOPY [facility] FAMILY HISTORY: Family History Problem Relation Age of Onset Colon cancer Grandfather (Maternal) SOCIAL HISTORY: Social History Tobacco Use Smoking status: Never Smokeless tobacco: Never Vaping Use Vaping Use: Never used Substance Use Topics Alcohol use: Never Drug use: Never ALLERGIES: Monoferric [ferric derisomaltose] ROS: Review of Systems Constitutional: Positive for activity change and fatigue. Negative for chills, fever and unexpectedweight change. HENT: Positive for sore throat. Negative for postnasal drip, rhinorrhea and sinus pressure. Eyes: Negative for visual disturbance. Respiratory: Negative for shortness of breath. Cardiovascular: Negative for chest pain, palpitations and leg swelling. Gastrointestinal: Positive for diarrhea. Negative for blood in stool, constipation, nausea and vomiting. Genitourinary: Negative for dysuria and hematuria. Musculoskeletal: Positive for gait problem. Skin: Positive for rash and wound. Neurological: Positive for weakness. Negative for dizziness, syncope and light-headedness. Current Facility-Administered Medications Medication Dose Route Frequency Provider [START ON 08/20/2023] Drug Level Check - Vancomycin Random Does Not Apply Once Timed Lab 2hrs Magali Cerrato MD Piperacillin-Tazobactam (Zosyn) 4.5 g in 100 mL NSS ivpb (FOUR hour infusion) 4.5 g IV Piggyback Q8H Now Chuck Hernandez MD potassium chloride ER tab 30 mEq 30 mEq Oral Q1H Marquis Jovel MD Vancomycin (Vancocin) 1500 mg in NSS 250 mL ivpb LOCKED DOSE 1,500 mg IV Piggyback BID (799,1999) Magali Cerrato MD Acetaminophen (Tylenol) tab 650 mg 650 mg Oral Q6H PRN Chuck Hernandez MD hEParin inj 5,000 Units 5,000 Units Subcutaneous Q8H Chuck Hernandez MD Menthol ([place]) cough drop 1 Lozenge 1 Lozenge Oral Q2H PRN Chuck Hernandez MD PHYSICAL EXAMINATION: Most Recent Vital Signs: BP: 82 mmHg/51 mmHg (08/19/2345) Pulse: 82 (08/19/2345) Temp: 37.39 C (08/19/2345) Resp: 16 (08/19/2345) SpO2: 97 % (08/19/23744) Telemetry: SR 70s with episodes of intermittent CHB during night Physical Exam Vitals and nursing note reviewed. Constitutional: General: She is awake. Appearance: Normal appearance. She is well-developed. HENT: Head: Normocephalic and atraumatic. Eyes: General: No scleral icterus. Extraocular Movements: Extraocular movements intact. Neck: Vascular: Normal carotid pulses. No carotid bruit or JVD. Cardiovascular: Rate and Rhythm: Normal rate and regular rhythm. Pulses: Carotid pulses are 2+ on the right side and 2+ on the left side. Radial pulses are 2+ on the right side and 2+ on the left side. Posterior tibial pulses are 2+ on the right side and 2+ on the left side. Heart sounds: S1 normal and S2 normal. Murmur heard. Comments: B/l venous insufficiency with ulcers noted Pulmonary: Effort: Pulmonary effort is normal. Breath sounds: Normal breath sounds. No decreased breath sounds, wheezing, rhonchi or rales. Musculoskeletal: Cervical back: Neck supple. Right lower leg: Edema present. Left lower leg: Edema present. Skin: General: Skin is warm and dry. Comments: LE swelling and reddiness and wounds dressings in place Neurological: General: No focal deficit present. Mental Status: She is alert and oriented to person, place, and time. Psychiatric: Attention and Perception: Attention normal. Mood and Affect: Mood normal. Speech: Speech normal. Behavior: Behavior normal. Behavior is cooperative. Thought Content: Thought content normal. Cognition and Memory: Cognition normal. Judgment: Judgment normal. RESULTS: ECGS: 08/19/2023: SR 73bpm Normal intervals LABS: Labs reviewed as indicated below: Component Latest Ref Rng 08/19/2023 Troponin T, High Sensitivity <=14 ng/L 8 Troponin T, High Sensitivity 6 Component Latest Ref Rng 03/22/2023 08/18/2023 08/19/2023 BUN 6 - 20 mg/dL 6 9 5 (L) Creatinine 0.5 - 1.0 mg/dL 0.3 (L) 0.5 0.4 (L) Estimated Glomerular Filtration Rate >=60 mL/min >90 >90 >90 Sodium 135 - 146 mmol/L 136 135 141 Potassium 3.5 - 5.1 mmol/L 4.0 3.6 3.1 (L) Chloride 98 - 107 mmol/L 100 103 111 (H) CO2 22 - 32 mmol/L 25 21 (L) 20 (L) Anion Gap 7 - 15 mmol/L 11 11 10 Glucose 70 - 120 mg/dL 90 96 94 Albumin 3.8 - 5.0 g/dL 2.8 (L) 2.8 (L) AST 10 - 35 U/L 58 (H) 23 Alkaline Phosphatase 35 - 130 U/L 179 (H) 144 (H) Bilirubin, Total <=1.2 mg/dL 0.2 0.2 Calcium 8.4 - 10.2 mg/dL 8.2 (L) 8.7 8.1 (L) Protein 6.0 - 8.3 g/dL 6.3 6.3 ALT 10 - 35 U/L 34 18 Component Latest Ref Rng 03/22/2023 08/18/2023 08/19/2023 WBC 4.00 - 10.80 K/uL 9.30 14.68 (H) Neutrophils % 40.0 - 75.0 % 74.9 72.0 Lymphocytes % 18.0 - 42.0 % 9.1 (L) 11.4 (L) Monocytes % 1.0 - 11.0 % 14.3 (H) 12.8 (H) Eosinophils % 0.0 - 6.0 % 0.6 2.2 Basophils % 0.0 - 2.0 % 0.6 0.7 Immature Granulocytes % 0.0 - 2.0 % 0.5 0.9 Absolute Neutrophils 1.80 - 7.70 K/uL 6.95 10.56 (H) Absolute Lymphocytes 1.00 - 4.80 K/ul 0.85 (L) 1.67 Absolute Monocytes 0.00 - 1.10 K/uL 1.33 (H) 1.88 (H) Absolute Eosinophils 0.00 - 0.70 K/uL 0.06 0.33 Absolute Basophils 0.00 - 0.20 K/uL 0.06 0.11 Absolute Immature Granulocytes 0.00 - 0.20 K/uL 0.05 0.13 WBC 4.00 - 10.80 K/uL 9.30 14.68 (H) 14.97 (H) RBC 3.85 - 5.15 M/uL 4.56 4.50 3.89 HGB 12.0 - 15.3 g/dL 11.1 (L) 12.8 11.3 (L) HCT 36.0 - 45.2 % 35.4 (L) 38.4 32.1 (L) MCV 81.5 - 97.5 fL 77.6 85.3 82.5 MCH 27.0 - 34.0 pg 24.3 28.4 29.0 MCHC 32.0 - 36.0 g/dL 31.4 33.3 35.2 RDW 11.5 - 15.5 % 26.8 16.8 16.2 PLT 140 - 400 K/uL 537 (H) 1,192 (HH) 1,089 (HH) MPV 6.6 - 11.1 fL 8.7 8.5 8.8 nRBCs <=0 /100 WBCs 0 0 0 Component Latest Ref Rng 03/22/2023 08/18/2023 Reticulocyte Percent 0.80 - 1.90 % 1.07 Absolute Reticulocyte 31.3 - 100.1 K/uL 47.5 Immature Reticuloctye Fraction 2.5 - 20.6 % 19.0 Reticulocyte Hemoglobin 29.7 - 37.4 pg 24.9 (L) Iron 33 - 151 ug/dL 16 (L) Iron Binding Capacity 250 - 425 ug/dL 180 (L) Transferrin Saturation Percent 15 - 55 % 9 (L) Ferritin 13 - 150 ng/mL 1,303 (H) Lactate 0.4 - 2.0 mmol/L 1.3 TSH 0.27 - 4.20 uIU/mL 3.07 Component Latest Ref Rng 11/30/2022 Triglycerides <=174 mg/dL 173 Cholesterol <200 mg/dL 115 HDL Cholesterol >49 mg/dL 37 (L) Non-HDL Cholesterol <=159 mg/dL 78 Hemoglobin A1C 4.0 - 5.6 % 4.8 Estimated Average Glucose <126 mg/dL 91 Component Latest Ref Rng 08/18/2023 Magnesium 1.5 - 2.6 mg/dL 2.1 Phosphorus 2.5 - 4.8 mg/dL 4.1 CRP (Inflammatory Marker) <=5 mg/L 35 (H) IMAGING: CXR: 08/18/2023: Independently interpreted by myself Normal study IMPRESSION: Intermittent CHB at 3:45am and right before 12pm-of note pt did tell me sometime today she was lightheaded and near syncope Generalized weakness Lymphedema Venous stasis ulcers Thrombocytosis Celiac disease Sore throat PLAN: -pt having some intermittent complete heart block during waking hours -she possibly was symptomatic with the episode around noon -pt did not really like the idea of a pacemaker -at the same juncture pt has leg ulcers from venous insufficiency that makes me cautious about putting in a ppm at this juncture -continue to monitor on telemetry overnight -if she continues to have episodes we will have to ensure blood cultures are negative and have a more serious discussion about things -if she does not have any more then would do a zio patch as an outpatient -I discussed my plan and recommendations to the hospitalist as outlined above and they are in agreement with recommendations. I spent a total of 80 minutes coordinating, documenting, and providing care for this patient excluding time spent in the performance of separately billed services or time spent by another provider/QHP. documented in this encounter Nursing Notes * Gunjan Christiansen, REE - 08/26/2023 12:57 PM EST 0852 Pt requested PRN tylenol before dressing change. PRN tylenol given per OCT. 0945 Pt laying in bed at this time. at bedside. A&Ox4. On RA. No complaints at this time. Dressing change completed at this time. Pt tolerated well. Assessment completed. Call denis in reach. 1215 IV removed at this time. 1230 Discharge instructions reviewed with pt and . All questions answered at this time. Pt getting dressed waiting on daughter to arrive for ride. 1336 Pt wheeled to car with this RN and family. * Kendra Perkins, RN - 08/25/2023 9:35 PM EST Pt resting in bed at this time with present at bedside. Noted at this time to be somewhat distracted and restless and painful. Alert and oriented x4 but withdrawn and quiet. verbalized concern over increasing pain. Request for tylenol. Educated on the importance of pain control and morphine recommended to this pt/family. Verbalized that they will make nursing aware if pain is not controlled with tylenol. Assessment completed. Pt refused dressing changes this evening. Repositioned for comfort. IV site flushed-patent. Call denis at bedside. Pt does appear unwell overall. Rash noted over back and abd- red splotchy. * Jocy Nur LPN - 08/25/2023 11:35 AM EST Pt was seen at the request of nursing staff for BLE dressing change. Pt is AA&O. Resting in bed. Leg elevated on pillows. Pt rating pain 7/10. Was medicated w/ tylenol. BLE dressing removed. Packing soaked w/ water to remove d/t sticking in place. Washed w/ soap & water. Pat dry. Applied silvadene to 3 sm areas, these are almost completely healed. Packed 2 w/ iodoform on Rt leg and packedone on Lt and one on Rt w/ Puracyn moistened gauze. Covered all w/ DSD and secured in place w/ rollgauze and ramos wrap. Pt was able to tolerated treatment much better today although she still c/o discomfort when larger wounds are treated. Stated the smaller wounds do not hurt. All open wounds are showing improvement w/ each dressing change. Some of the smaller ones have completely healed and the larger ones are visibly smaller with pink moist granular wound beds. No necrosis, no purulence, crepitus or induration. Swelling and redness have also improved. present. Questioned if a bx was going to be done today? Unsure of that answer at this time. Call or TT w/ any questions or concerns. Jocy Fitzpatrick LPN,[facility] Licensed Practical Nurse, Wound Care Certified, Ostomy director records management Wound Care Resource Nurse 08/25/23 11:44 AM * Dora Soni RN - 08/25/2023 10:40 AM EST Pt awake laying in bed upon entering pt's room. AOX4 and denies pain at rest. Pt given tylenol d/t tenderness upon palpation of BLE and request by Allison Nur LPN before wound dressing change. BLE dressings intact, pt able to wiggle toes and positive sensation. Assessment completed. Pt denies questions or concerns at this time. Call denis use reinforced and within reach. 1515, Dr. Fritz Siddiqui present at bedside to perform biopsy of pt's leg wound. Pt c/o of pain when removing wound dressing. Pt offered morphine before procedure and pt refused. Pt made aware of needle insertion when lidocaine is injected and pt refused procedure and states "it is too painful." Wound dressing reapplied. Call denis within reach upon exiting room. * Chen Taylor RN - 08/23/2023 10:15 PM EST Pt alert and verbal with needs. Pt states she has pain in her oriana lower extremities. Pt given tylenol prn and has a morphine order but refused to take anything stronger than tylenol. Encouraged pt to elevate legs and propped oriana lower extremities up on two pillows and floated her heels. Pt refusedto have nurse change dressings. Stated that the it infrastructure specialist had did them today and that they do them once at home. Pts gait continues to be not steady when she sits at side of the bed and when getting up from bed using the walker. Pt seems like she wants to fall back when she is standing and takes a while to get her balance. No other voiced concerns at this time from pt. Call denis in reach and at bedside. * Jocy Nur LPN - 08/23/2023 12:38 PM EST Pt was seen today at the request of patient and for BLE dressing change. Pt is AA&O. Reported dressing was only changed once yesterday because she felt it was too late in the night to have them done before bed. Pt was medicated w/ tylenol. Offered IV pain meds. Pt declined. Dressings removed to BLE . Gauze was wet before removing. Washed w/ soap & water. Applied silvadene to sm open areas and packed larger ulcers w/ puracyn WTD. Moistened gauze used in larger wounds and moistened iodoform to smaller ones. Wound appearance continues to improve. No necrosis and no purulence. Secured all dressings in place w/ roll gauze and ramos wraps from the base of toes to below knees. Pt c/oburning discomfort during treatment. Pulled away with the slightest touch. Was not able to clean the wound beds as good as they needed d/t her discomfort. Legs elevated on pillows. Call or TT w/ any questions or concerns. Jocy Fitzpatrick LPN,[facility] Licensed Practical Nurse, Wound Care Certified, Ostomy director records management Wound Care Resource Nurse 08/23/23 12:45 PM * Chen Taylor RN - 08/23/2023 3:48 AM EST At 0227 pts tele monitor reading 2nd degree block type two. Made CELESTE Claros aware. * Chen Taylor RN - 08/22/2023 8:00 PM EST Assessment completed. Pt and refused pt getting wound care completed. They stated that it is only done once a day. Informed them that our wound nurse wrote for twice daily but they stated that this would not be able to be done like that at home and it was too late to do it now. * Jocy Nur LPN - 08/22/2023 12:08 PM EST Pt was seen today for wound care to BLE at the request of family and patient. Pt was medicated w/ tylenol. TT sent to Dr. Cerrato to give stronger pain meds for MALISSA and dressing changed today. Pt reports her legs are feeling better. She seems to be having much less pain today but continues to c/o pain w/ treatment. Stated the sores "burn so bad". Dressings removed to BLE. No purulence noted. Dressing was dry when removed. Soaked w/ water before removing. MALISSA done at bedside. Wounds continue to improve with less swelling, redness, pain and appearance. More granular tissue seen today. No necrosis. BLE washed w/ soap & water. Applied puracyn WTD dressings in packable wounds. Applied silvadene to all other sm superficial wounds. Secured in place w/ roll guaze and ramos wraps from base of toes to below knee. Call or TT w/ any questions or concerns. Jocy Fitzpatrick LPN,[facility] Licensed Practical Nurse, Wound Care Certified, Ostomy director records management Wound Care Resource Nurse 08/22/23 12:16 PM * Macy Faulkner, REE - 08/21/2023 9:51 PM EST Pt AAO x4 and resting in bed. Pt has no c/o pain at this time. Assessment completed by this RN at 2130. Lungs diminished. +2 LE edema, R > L. Abdomen firm and rounded. Skin has scattered bruising and bilateral LE wounds. Dressings remain intact with RAMOS bandages. Per the pt, her dressings were not changed until afternoon, so she would like to wait until morning for the next dressing change. BP88/53. Midodrine administered. NSS continues to infuse at 50 mL/hr. Medications administered without difficulty. Bed is on low level. Bed alarm is on. Call denis is within reach. 2200: Pt's IV leaking. Zosyn, vanc, and NSS stopped. RRosaura RN, A.FCande RN, and R.N. RN all unsuccessfulattempts at new iv. A.M. 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 Fluids and antibiotics restarted at 0100. Pharmacist made aware. Antibiotics re-timed. * Carmen Funez RN - 08/21/2023 8:30 AM EST 0830 - Pt awake in room sitting at EOB, denies pain at this time. Pt still hypotensive. Antibioticsinfusing w/o difficulty. Pt at bedside. No current complaints, call denis is within reach and bed alarm on for safety. Will continue to monitor. 1014 - Pt c/o 3/10 BLE pain, medicated per MAR w/ PRN tylenol. * Sumi Escamilla RN - 08/21/2023 1:25 AM EST Assessment completed. AOX4. Pt seems to be notably more lethargic compared to last HS. Pt states that she did not get her nap in today. BLE dressings intact. No c/o pain at this time. at bedside. Call denis within reach 2352: Pt placed in trendelenburg position and TT MD sofy about low BP. Continuous fluid rate increased to 125mL/hr and additional 5mg midodrine ordered and administered at this time. 0000: Pt requesting to void. Assisted pt to side of bed. Pt states that she feels lightheaded. Stated to pt that it would be best that she void using the bedpan to decrease the risk of a fall. Pt refusing at this time. This nurse and Edel RN assisted pt to bedside commode. Pt c/o pain with ambulation in BLE but does not request medication at this time. Pt assisted back to bed. Bed alarm on. Callbell within reach 0155: While hourly rounding. Noted that pts RR 40 while sleeping. When I woke pt RR and obtained VSpts RR decreased to 26. T:99.7 PRN tylenol administered. TT MD Daryl about pt findings and requested that he come to bedside at this time. Requested a PRN nebulizer as well. Ordered 0210: MD Daryl at bedside to assess pt. DD, VBG, and lactate ordered. 0600: Pt ambulated to bathroom to have BM. Pt voided in stool sample hat. Unable to send to lab. Call denis within reach . Bed alarm on * Francisca Jiménez LPN - 08/20/2023 5:19 PM EST 0800: Assessment completed at this time, see flow sheets for dull details. Patient A/Ox4. Patient voiced no concerns or pain at this time, pain worsens with ambulation. BLE wound dressing remain intact at this time. Fluids infusing. All immediate needs met and call denis in reach and reinforced. 0958: Vancomycin hung per orders, see MAR for details. 1016: IVP medication administered by covering RN, see MAR for details. 1600: Wound care and dressing change completed at this time. Patient having increased pain with wound care. See flow sheets for documentation. PRN medication administered per orders. * Sumi Escamilla RN - 08/19/2023 10:00 PM EST 1899: BP 80/57. Pt's BP has been running low all day. 2012: BP: 79/44. TT MD David about pts BP. BMP and one time dose of midodrine ordered at this time. Assessment completed. AOX4. No c/o pain at this time.+2 BLE edema noted. BLE dressings intact. Lungs diminished with a non- productive congestive cough. at bedside. Call denis within reach. 2122: BP 89/55. Will continue to monitor. 2299: Pts temp 99.7F. PRN tylenol administered at this time. 0120: T: 100F. Ice pack given to pt 0530: Attempted to obtain stool specimen. Pt voided in hat and hat fell assisted in toilet. Unable to send at this time. * Francisca Jiménez LPN - 08/19/2023 5:48 PM EST 1100: Assessment completed, see flow sheets for full details. Patient A/Ox4. +2 edema noted to BLE,wound dressing intact. Patient stated to be having no pain at this time but pain worsened with movement. Patient able to ambulate in room with 1 assist, tolerating well. All immediate needs addressedand call denis in reach. IV antibiotics infusing at this time, PIV assessed. 1206: Liquid potassium administered per orders. Verified order with pharmacy. IVP medication administered by covering RN, see MAR for details. 1520: Zosyn hung per orders, see MAR for details. Patient wounds open to air at this time. Discussed with Dr. Cerrato at bedside at this time about redressing wounds until gen surg is able to see patient. Dr. Cerrato stated to not use RAMOS wraps on BLE wounds until gen surg gives orders for wound care. * Pat Licona RN - 08/19/2023 12:08 AM EST 2300- Assumed care of pt. 2358- Ambulated to BSC with 1 assist. Pt very weak and unsteady, heavy assistance. Voided 250ml clear yellow urine. UC sent to lab. 0021- Pt had 6.6 second pause. Pt asymptomatic, present at bedside. Dr. eHrnandez aware. 0041- Pts temp 100.9. Manual BP 80/40. Dr. Hernandez aware. 0108- NSS bolus infusing per MAR. BP 8757. Pt insisting on getting OOB to BSC to have BM. Pt assisted with staff to BS. Pt had large liquid brown BM. Rash noted on buttocks, pt states she has had itfor a few days and thought it was related to the depends she wore at home. 0120- Blood cultures obtained. 0212- NSS bolus finished. BP 97/55, temp down to 37.4. Antibiotics infusing. 0345- Pt had 4 sec pause. Pt laying in bed, asymptomatic. Vitals obtained. Dr. Hernandez aware. * Sumi Escamilla RN - 08/18/2023 10:59 PM EST Dual Licensed Skin Assessment completed by Kyle RN and Socorro RN. The patient is/has a N/A Skin Breakdown (includes non blanchable erythema): Yes. Wound Type: Other, location Venous ulcers BLE Wound Ostomy Nurse Notified: Yes - notified via wound care protocol Nursing interventions: Irrigated wounds with normal saline, adaptic, abd pad, and roll gauze. Elevated for swelling * Jessica Fry RN - 08/18/2023 10:56 PM EST VIRTUAL RN [facility]-[address] [place] [address] Name: Soco Guevara Location: [facility] [id number] Date: 08/18/2023 Time: 10:56 PM I completed the Admission Navigator. The patient was in the hospital. I was not in a hospital or clinic location. After connecting through [employer], the patient was identified by name and date of and / or wristband checked. Patient (or authorized legal containers sales representative) was then informed that this was a Virtual Nurse visit and was being conducted confidentially over secure lines. I used a headset and other methods to ensure confidentiality for the patient. My office door was closed. No oneelse was in the room with me. Patient acknowledged consent and understanding of privacy and security of the Virtual Nurse visit. I presented the opportunity for the patient or authorized legal containers sales representative to ask any questions regarding the visit today. The patient or authorized legal containers sales representative agreed to participate. Patient is alert & oriented with call denis in reach. Reminded to ring for assistance. at bedside. documented in this encounter ED Notes * Kwesi Mcadams, - 08/18/2023 7:41 PM EST HISTORY OF PRESENT ILLNESS Soco Guevara is a 48 year old female who presents to the ED for evaluation of Weakness, Generalized (legs). The patient was seen at 08/18/231921. 40-year-old female with a history of iron deficiency anemia and 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 Forthe last 3 weeks she has had progressive weakness in her lower extremities. She is having difficulty walking that is worsening as well. The is at bedside explaining she is extremely unsteady and wobbles back and forth. She denies any back pain, bowel or bladder dysfunction, abdominal pain, chest pain, coughing or shortness of breath. She does complain of a sore throat that has been going on for a while and she was on amoxicillin but this did not help. She denies any headaches, lightheadedness, numbness or weakness in her upper extremities. She actually has a numbness that was in her feet that is overall improved. She has chronic wounds on her legs. They have been changing the bandages but the discharge has been slightly worsening. She has not had any fevers. History provided by: patient innersole maker used: No Weakness, Generalized The patient's allergies, past history, and medications were reviewed. PHYSICAL EXAM Initial Vitals (see all): BP 93/64 | Pulse 87 | Resp 18 | Temp 98.2 | O2 100 %Weight 49.44 kg | Height 162.6 cm | BMI 18.71 kg/m2 Initial Pain Assessment (see all): 0 (no pain)/10 ([facility] Adult Scale 0-10) Physical Exam Vitals and nursing note reviewed. Constitutional: General: She is not in acute distress. Appearance: Normal appearance. She is well-developed. She is ill-appearing. She is not diaphoretic. HENT: Head: Normocephalic and atraumatic. Nose: Nose normal. Mouth/Throat: Mouth: Mucous membranes are moist. Pharynx: Oropharynx is clear. Comments: Hoarse voice Eyes: Extraocular Movements: Extraocular movements intact. Pupils: Pupils are equal, round, and reactive to light. Cardiovascular: Rate and Rhythm: Normal rate and regular rhythm. Comments: Dopplered dorsalis pedis pulses Radial pulses intact Pulmonary: Effort: Pulmonary effort is normal. No respiratory distress. Breath sounds: Normal breath sounds. No wheezing or rales. Abdominal: General: Bowel sounds are normal. There is no distension. Palpations: Abdomen is soft. Tenderness: There is no abdominal tenderness. There is no guarding. Musculoskeletal: General: Normal range of motion. Cervical back: Normal range of motion. Right lower leg: Edema present. Left lower leg: Edema present. Comments: Atrophied thighs Lymphadenopathy: Cervical: No cervical adenopathy. Skin: General: Skin is warm. Comments: There are wounds on both lower extremities that are deep with a mild amount of discharge and surrounding redness Neurological: General: No focal deficit present. Mental Status: She is alert. Sensory: No sensory deficit. Comments: Decreased strength in lower extremities grossly she is able to lift them up off the bed on her own Psychiatric: Mood and Affect: Mood normal. PROCEDURES AND TREATMENTS ED Orders | ED Results MEDICAL DECISION MAKING Nursing notes and vital signs were reviewed. ED Course as of 08/18/232055Aug 18, 20232035 I discussed the patient with Dr. Cabezas with Heme-Onc and the fact that her platelet count is so elevated along with a mild white blood cell count and she has no significant anemia. He does not recommend any treatments in regards to this at this time. He feels it is likely reactive. I did review the last hematology oncology note which I also discussed with him about the thrombocytosis in the past was thought to be reactive from the iron deficiency anemia. Dr. Cabezas does not recommend any further treatments in regards to this for now and treating her other medical issues that may be contributing to her ambulatory dysfunction. I am reaching out to the hospitalist to discuss admission. [AT] 2040 No acute abnormality on CT head, leg x-rays or chest x-ray. [AT] 2053 Official CBC result is still pending but the lab did informed me of the leukocytosis, hemoglobin of about 12.8 and thrombocytosis. I discussed the patient with the hospitalist who accepted for further care. The x-rays of her back do not reveal any concerning acute abnormalities but she does have chronic deformities in the thoracic spine. [AT] ED Course User Index [AT] Kwesi Mcadams, DO Differential Diagnoses Based on my history, physical exam, and evaluation, the differential includes, but is not limited, to the following diagnoses: Cancer, muscular dystrophy, pyoderma gangrenosum, cellulitis, osteomyelitis less likely, sepsis, vertebral fracture, disc herniation unlikely, spinal cord lesion, cauda equina less likely, viral illness, strep, sepsis, pneumonia less likely, UTI. 40-year-old female presenting to the emergency department with lower extremity weakness that has progressed. She is having trouble walking. She is atrophied thighs. She is chronic wounds on her legs that are deep and there is some mild surrounding erythema. Neurovascularly intact in her lower extremities. No deficits in her upper extremities. She denies any abdominal pain and has no tenderness. No midline spine tenderness. She has no back pain, bowel or bladder dysfunction. She does have a sorethroat and I will send a viral swab swab. Vitals do reveal low blood pressure but her blood pressure has been low in the past. Other vitals reassuring. She is overall ill-appearing and somewhat cachec tic. I am sending cultures and will obtain a urinalysis along with her lab work. I am going to obtain x-rays of her chest, both lower legs, and her T and L- spine. Reviewing her chart she had abnormallesions that did not have significant activity on the PET scan that was obtained in commented on from a note from hematology/oncology in March. Amount and/or Complexity of Data Reviewed Labs: ordered. Radiology: ordered. Risk Decision regarding hospitalization. Clinical Impressions Thrombocytosis Multiple open wounds of lower leg, unspecified laterality, initial encounter Ambulatory dysfunction Disposition Admitted. I discussed the management of this patient with the admitting provider and I made a decision to admit the patient. Admission Order Ordered Status . 08/18/232050 Admit for Inpatient Services (incl ZPO) ONCE Ordered Kwesi Mcadams * David Prasad RN - 08/18/2023 7:12 PM EST Weakness starting in July, over last 2 weeks has had difficulty waling, has a possible lesion on back. Denies loss of bowel or bladder, has fallen recently and there could be a change in cognition recently. documented in this encounter Miscellaneous Notes * Communication - Mercedes Garrett NA/UDC - 08/26/2023 11:55 AM EST Please call your primary care doctor to schedule a 1 week hospital discharge appointment. The wound care office will call you with a 1 week hospital discharge appointment. The hematology office will call you with a 2 week hospital discharge appointment. The gastroenterology office will call you with an appointment for a procedure. * Pt Handout (on AVS) - Fito Stephenson RN - 08/26/2023 11:52 AM EST Images from the original note were not included. [id number] Midodrine Oral Tablet Uses For low blood pressure. Instructions This medicine may be taken with or without food. This medicine will work best if you take it at about the same time every day. Try to avoid taking the medicine at bedtime. Space doses at least 4 hours apart unless instructed otherwise. Store at room temperature away from heat, light, and moisture. Do not keep in the bathroom. It is important that you keep taking each dose of this medicine on time even if you are feeling well. If you forget to take a dose on time, take it as soon as you remember. If it is almost time for thenext dose, do not take the missed dose. Return to your normal schedule. Do not take 2 doses at one time. Drug interactions can change how medicines work or increase risk for side effects. Tell your healthcare providers about all medicines taken. Include prescription and [id number] medicines, vitamins, and herbal medicines. Speak with your doctor or pharmacist before starting or stopping any medicine. Keep all appointments for medical exams and tests while on this medicine. Cautions Tell your doctor and pharmacist if you ever had an allergic reaction to a medicine. Do not use the medication any more than instructed. This medicine may cause dizziness or fainting, especially after exercising or in hot weather. Be very careful when standing or sitting up quickly. This medicine may cause dangerous increase in blood pressure when lying down. Do not take medicine less than four hours before bedtime or nap. Your ability to stay alert or to react quickly may be impaired by this medicine. Do not drive or operate machinery until you know how this medicine will affect you. Please check with your doctor before drinking alcohol while on this medicine. It is unknown if this medicine passes into breast milk. Ask your doctor before . This medicine can hurt a new baby in the womb. If you become while on this medicine, tell your doctor immediately. Your doctor may switch you to a different medicine. Do not share this medicine with anyone who has not been prescribed this medicine. Side Effects The following is a list of some common side effects from this medicine. Please speak with your doctor about what you should do if you experience these or other side effects. agitated feeling or trouble sleeping dizziness or drowsiness dry mouth muscle cramps skin tingling stomach pain increased urinary frequency Call your doctor or get medical help right away if you notice any of these more serious side effects: chest pain chills confusion throbbing in the ear fainting severe or persistent headache fast, irregular, or slow heartbeat high blood pressure nervousness difficulty or discomfort urinating blurring or changes of vision weakness A few people may have an allergic reaction to this medicine. Symptoms can include difficulty breathing, skin rash, itching, swelling, or severe dizziness. If you notice any of these symptoms, seek medical help quickly. Extra Please speak with your doctor, nurse, or pharmacist if you have any questions about this medicine. [email or web address] IMPORTANT NOTE: This document tells you briefly how to take your medicine, but it does not tell youall there is to know about it. Your doctor or pharmacist may give you other documents about your medicine. Please talk to them if you have any questions. Always follow their advice. There is a more complete description of this medicine available in [place]. Scan this code on your smartphone or tablet or use the web address below. You can also ask your pharmacist for a printout. If you have any questions, please ask your pharmacist. The display and use of this drug information is subject to Terms of Use. Copyright(c) 2022 [employer]. [employer]. All rights reserved. This information is not intended as a substitute for professional medical care. Always follow your healthcare professional's instructions. * Pt Handout (on AVS) - Fito Stephenson RN - 08/26/2023 11:52 AM EST Images from the original note were not included. [id number] Amoxicillin/Clavulanate Oral Tablet Brands: Augmentin Uses For treating bacterial infection. Instructions Take the medicine with food. Keep the medicine at room temperature. [...] about all your medicines. Include prescription and nfzx-vox-pfkbqdhouautxyul, vitamins, and herbal medicines. Keep using this medicine for the full number of days that it is prescribed. Do not stop the medicine even if you start to feel better. If you have diabetes and use urine glucose tests, this medicine may cause incorrect results. Pleasecheck with your doctor before making any changes to your diabetes treatment plan. Cautions Tell your doctor and pharmacist if you ever had an allergic reaction to a medicine. Do not use the medication any more than instructed. Please tell your doctor if you have moderate to severe diarrhea while on this medicine. Do not treat the diarrhea with jkov-ppv-azfmbrr diarrhea medicine. Tell the doctor or pharmacist if you are , planning to be , or . Do not start or stop any other medicines without first speaking to your doctor or pharmacist. Do not share this medicine with anyone who has not been prescribed this medicine. Side Effects The following is a list of some common side effects from this medicine. Please speak with your doctor about what you should do if you experience these or other side effects. diarrhea nausea and vomiting stomach upset or abdominal pain Call your doctor or get medical help right away if you notice any of these more serious side effects: severe or persistent abdominal pain severe, watery or bloody diarrhea signs of liver damage (such as yellowing of eye or skin, dark urine, or unusual tiredness) red, burning, or itchy skin yeast infection of mouth vaginal itching or discharge A few people may have an allergic reaction to this medicine. Symptoms can include difficulty breathing, skin rash, itching, swelling, or severe dizziness. If you notice any of these symptoms, seek medical help quickly. Extra Please speak with your doctor, nurse, or pharmacist if you have any questions about this medicine. [email or web address]/[email or web address]/fdbpem/[email or web address] IMPORTANT NOTE: This document tells you briefly how to take your medicine, but it does not tell youall there is to know about it. Your doctor or pharmacist may give you other documents about your medicine. Please talk to them if you have any questions. Always follow their advice. There is a more complete description of this medicine available in [place]. Scan this code on your smartphone or tablet or use the web address below. You can also ask your pharmacist for a printout. If you have any questions, please ask your pharmacist. The display and use of this drug information is subject to Terms of Use. Copyright(c) 2022 [employer]. [employer]. All rights reserved. This information is not intended as a substitute for professional medical care. Always follow your healthcare professional's instructions. * Care Plan - Kendra Perkins RN - 08/26/2023 6:58 AM EST Clinical Goal(s): Pt will have pain control this shift as verbalized by pain 4/10 or better. (08/25/232099) Possible barriers to meeting goal(s)/advancing plan of care: Recent acute pain related to ulcers onlegs. Stability of the patient: Moderately stable - low risk of patient condition declining or worsening Summary regarding today's goal(s): Met: Pt has had pain needs met this shift as evidenced by negative FLACC while sleeping. Denied need for pain medications this am. Recommendations: Continue to monitor and encourage pt to medicate for pain and keep ahead of the pain throughout the day with interventions. * Ancillary Progress Note - Macy Espinosa COTA - 08/25/2023 2:46 PM EST PROGRESS NOTE - Occupational Therapy [facility]-[address] [address] Name: Soco Guevara Location: [facility] [id number] Date: 08/25/2023 Time: 2:46 PM Soco Guevara is a 48 year old female. Patient Status: Inpatient Insurance: Payor: [employer] Plan: [employer] Product Type: *No Product type* Patient Seen: at bedside, nursing cleared patient for therapy Patient Identified By: Name, ID Band and Date Diagnosis: weakness, ADL deficit, decreased endurance (08/25/23 1446) Status of treatment: Treatment completed (08/25/23 1446) Orders: OT evaluation and treatment (08/25/231445) Weight Bearing Status: Weight bearing as tolerated (08/25/231445) Precautions: Falls;Safety;Alarms (08/25/231445) Total Treatment Time: 17 (08/25/231445) Subjective: pt was pleasant and cooperative throughout tx. Pain: Patient has complaints of pain. Pain located in BLE. Pt reported pain ranged from 5-8/10. Observations Consciousness: Alert (08/25/231445) Orientation: Oriented times 4 (08/25/231445) Cognitive Limitations: (none noted on OT eval) (08/22/231442) Psychosocial: Patient can communicate basic needs;Patient can converse in a social setting (08/25/231445) Visual Deficits: (glasses) (08/22/231442) Sitting posture: Forward head;Rounded shoulders (08/25/231445) Standing posture: Forward head;Rounded shoulders (08/25/231445) Safety awareness: The Patient verbalizes insight of current deficits.;The Patient demonstrates carryover of insight during functional tasks.;The Patient can communicate basic needs.;Needs cueing supervision. (08/25/231445) Other Findings Light touch sensation: LUE;RUE;Intact (08/22/231442) Coordination: LUE;RUE;Gross motor;Fine motor;Intact (08/22/231442) Current Functional Status: Activities of Daily Living: Self Care Able to provide self care: Yes (08/22/231442) Feeding: Modified Independent (08/22/231442) Grooming: Contact Guard (08/22/231442) Toileting: Minimal Assistance (08/25/231445) Dressing Upper Body: Minimal Assistance (08/22/231442) Lower Body: Dependent (08/25/231445) Bathing Upper Body: Minimal Assistance (08/22/231442) Lower Body: Moderate Assistance (08/22/231442) Functional Ambulation Assistive Device: Rolling walker (08/25/231445) Distance in feet:: 50 (25ft x2) (08/25/231445) Level of Assistance: Contact Guard (to supervision) (08/25/231445) Bed Mobility Supine-Sit: Contact Guard (08/25/231445) Sit-Supine: Contact Guard (08/25/231445) OT Transfers Sit-Stand: Contact Guard (elevated EOB) (08/25/231445) Stand-Sit: Contact Guard (08/25/231445) Toilet: Minimal Assistance (to CGA using grab bars) (08/25/231445) Balance Sit (Static): Normal (08/22/231442) Sit (Dynamic): Normal (08/22/231442) Stand (Static): Good (08/22/231442) Stand (Dynamic): Good (08/22/231442) Patient Education Education Topic: Role of OT;Plan of care goals (08/22/231442) Review of Precautions: Safety;Fall (08/22/231442) Method of Education: Verbalized to patient (08/22/231442) Education Provided to: Patient (08/22/231442) Response to Education: Receptive and agreeable to education (08/22/231442) Barriers to learning: Medical status (08/22/231442) Alarm Status Patient positioned in: Bed (08/25/231445) With: Call denis in reach (RN and gen surg resident present in room) (08/25/231445) Treatment Provided: Therapeutic Activity: 17 minutes Deficits requiring O.T. treatment needs: ADL/self-care;Balance;Endurance;Fine motor coordination;Functional mobility;IADL;Safety;Upper extremity strength;Upper extremity range of motion;Weakness (08/22/231442) Assessment: Pt was agreeable to participating in treatment. OT AMPAC decreased from 17 to 16. Pt was in supine upon arrival to room. She was dep for donning socks over bandages. She required CGA supine <> sit at EOB. She required CGA sit to stand from elevated EOB. She ambulated with RW with CGA-supervision. Pt required CGA stand to sit on toilet using grab bar. She urinated and completed hygiene with supervision while seated. She required min A sit to stand from toilet and min A to manage underwear post transfer. She returned to sitting at EOB and returned to sitting. Gen surgery resident and RN in room at this time to do biopsy of pt's wound. No further tx was completed. Pt was leftin supine with HOB elevated, and RN present. Plan: Continue treatment as directed by the OT consult. Anticipated Frequency (on eval): 1 to 3 times per week (08/25/231445) Equipment Equipment used in Therapy: Grab bars;Hospital bed;Rolling walker (08/25/231445) AM-PAC Help From Another Person Eating Meals: None (08/25/231445) Help From Another Person Taking Care of Personal Grooming: A little (08/25/231445) Help From Another Person To Put On/Take Off Upper Body Clothing: A little (08/25/231445) Help From Another Person To Put On/Take Off Lower Body Clothing: Total (08/25/231445) Help From Another Person Toileting: A little (08/25/231445) Help From Another Person Bathing: A lot (08/25/231445) OT AM-PAC Score: 16 (08/25/231445) OT AM-PAC t-Scale Score: 35.96 (08/25/231445) HLM (Highest Level of Mobility) Goal: Level 6 walk 10 steps or more (08/25/23 1030) * Ancillary Progress Note - Macy Espinosa COTA - 08/25/2023 11:07 AM EST Attempted to see pt at 1107, pt was being seen at this time by Allison Nur LPN for wound care. Treatment will be attempted at a later time or date dependent on schedule, pt tolerance, and pt medical status. * Ancillary Progress Note - Pavel Crocker, PT - 08/25/2023 8:40 AM EST PROGRESS NOTE - Physical Therapy [address] [address] Name: Soco Guevara Location: [place] [address]/ Date: 08/25/2023 Time: 839 Soco Guevara is a/an 48 year old female. Patient Status: Inpatient Insurance: Payor: [employer] Plan: [employer] Product Type: *No Product type* Patient Seen: at bedside, nursing cleared patient for therapy Patient Identified By: Name, ID Band and Date Diagnosis: Gait dysfunction, generalized weakkness (08/25/23839) Status of treatment: Treatment completed (08/25/23839) Orders: (treatment completed) (08/25/23839) Weight Bearing Status: Weight bearing as tolerated (08/25/23839) Precautions: Falls;Safety (08/25/23839) Total Treatment Time--free text: 15 (08/25/23839) Subjective: Cooperative for PT treatment Pain: No complaints of pain P.T. Bed Mobility Roll (Left): Supervision (08/24/23 1400) Sidelying-Sit: Supervision (08/24/231399) Sit-Sidelying: Supervision (08/24/231399) Supine-Sit: Supervision (08/25/23839) Transfers Sit-Stand: Supervision (08/25/23839) Stand-Sit: Supervision (08/25/23839) W/C-Bed/Mat: Contact Guard (08/24/231399) Ambulation: Distance ambulated (feet): 350 Assistive Device: Rolling walker Assist: Supervision Balance Sit (Static): Good (08/25/23839) Sit (Dynamic): Good (08/25/23839) Stand (Static): Good (08/25/23839) Stand (Dynamic): Fair (08/25/23839) Patient and or Family Goal(s): to get well and to return home Topic of Education: Safety with mobility Method of Education: Verbal discussion and explanation provided to patient who verbalized understanding and or agreement of this information. Treatment Provided: Gait Training 15 minutes: gait training with rolling walker Alarm Status Patient positioned in: Bed (08/25/23839) With: Call denis in reach (08/25/23839) Patient Education Review of Precautions: Safety;Fall (08/25/23839) Safety Awareness: Patient verbalizes insight of current deficits;Patient demonstrates carryover of insight during functional tasks;Patient can communicate basic needs (08/25/23 08) Preferred learning method: Combination (08/25/23 08) Barriers to learning: Medical Status (08/25/23839) Method of Education: Verbalized to patient;Patient demonstrated task;Verbalized to family/caregiver(08/25/23839) Assessment: PT treatment completed. The patient was able to transfer supine to sit with supervisionand then perform multiple sit to stands with supervision. She was able to ambulate 350 feet with a rolling walker with supervision. Her steps were more continuous and her PIETRO was wider that in previous sessions. Deficits requiring P.T. treatment needs: Endurance;Weakness;Safety;Mobility (08/25/23 0840) Equipment needs: Rolling walker (08/23/23 1515) Plan: Continue with current treatment plan established on evaluation. AM PAC Score with Stairs: 18 * Care Plan - Huong Crain RN - 08/25/2023 5:16 AM EST Patient remained alert and oriented overnight and on room air. Denied pain. Slept well with no complaints. Patient refused BLE dressing change overnight. Rash noted to back and bottom when ambulatingpatient to bathroom, Christina Cooper NP notified who ordered to continue to administer Unasyn. IV antibiotics continued. VS and assessments per flowsheets. at bedside. Call denis within reach. Clinical Goal(s): patient will remain free from falls this shift (08/24/23 2100) Possible barriers to meeting goal(s)/advancing plan of care: BLE weakness and pain with wounds. Stability of the patient: Moderately stable - low risk of patient condition declining or worsening Summary regarding today's goal(s): Met: Patient remained free from falls this shift. Recommendations: Continue fall precautions, Ambulation with assistance and assistive device, hourlyrounding, and education. Problem: Risk for Infection & Contamination Goal: Staff & visitors will prevent transmission of infection. Outcome: Progressing Problem: Pain & Impaired Comfort Goal: Patient's pain & discomfort is manageable. Outcome: Progressing Problem: Safety & Risk for Injury Goal: Patient will remain free from injury. Outcome: Progressing Problem: Daily Care & Potential Self-Care Deficit Goal: Patient's daily care needs are met. Outcome: Progressing Problem: Risk for Impaired Physical Mobility Goal: Patient will maintain optimal mobility level. Outcome: Progressing Problem: Actual & Potential for Falls Goal: Patient will remain free of falls. Outcome: Progressing * Ancillary Progress Note - Annita Guevara PTA - 08/24/2023 1:30 PM EST PROGRESS NOTE - Physical Therapy [facility]-[address] [address] Name: Soco Guevara Location: [facility] [id number] Date: 08/24/2023 Time: 1330 Soco Guevara is a/an 48 year old female. Patient Status: Inpatient Insurance: [facility]: [facility] Plan: [employer] Product Type: *No Product type* Patient Seen: at bedside, nursing cleared patient for therapy Patient Identified By: Name, ID Band and Date Diagnosis: Gait dysfunction, generalized weakkness (08/24/231399) Status of treatment: Treatment completed (08/24/231399) Orders: OOB (08/24/231399) Weight Bearing Status: Weight bearing as tolerated;RUE;LUE;RLE;LLE (08/24/231399) Precautions: Falls;Safety;Isolation (08/24/231399) Total Treatment Time--free text: 15 (08/24/231399) Subjective: Legs hurt when I first get moving but pain decreases as I walk more Pain: Patient has complaints of pain. Pain located BLE. Nursing aware P.T. Bed Mobility Roll (Left): Supervision (08/24/23 1400) Sidelying-Sit: Supervision (08/24/231399) Sit-Sidelying: Supervision (08/24/231399) Supine-Sit: Supervision (08/24/231399) Transfers Sit-Stand: Contact Guard (08/24/23 1400) Stand-Sit: Contact Guard (08/24/23 1400) W/C-Bed/Mat: Contact Guard (08/24/231399) Ambulation: Distance ambulated (feet): 165 Assistive Device: Rolling walker Assist: Contact Guard Balance Sit (Static): Good (08/24/23 1400) Sit (Dynamic): Good (08/24/23 1400) Stand (Static): Fair (08/24/23 1400) Stand (Dynamic): Fair (08/24/23 1400) Patient and or Family Goal(s): to return home Topic of Education: Safety with mobility and Use of assistive device Method of Education: Demonstrated the above task to pt: demonstrated the exercise and or task Treatment Provided: Gait Training 15 minutes: gait training with rolling walker Alarm Status Patient positioned in: Bed (08/24/23 1400) With: Call denis in reach (08/24/23 1400) Patient Education Review of Precautions: Safety;Fall (08/24/231399) Safety Awareness: Patient verbalizes insight of current deficits;Patient demonstrates carryover of insight during functional tasks;Patient can communicate basic needs (08/24/23 1400) Preferred learning method: Combination (08/24/23 1400) Barriers to learning: Medical Status (08/24/231399) Method of Education: Verbalized to patient;Patient demonstrated task;Verbalized to family/caregiver(08/24/23 1400) Assessment: Pt bed mobility with supervision. Sit to stand CGA. Gt with RW approx 165 ft with CGA x1. Manages walker I. Back to bed with supervision. Call light in reach. Family member present. Deficits requiring P.T. treatment needs: Safety;Mobility;Balance;Weakness;Endurance (08/24/23 1400) Equipment needs: Rolling walker (08/23/23 1515) Plan: Continue with current treatment plan established on evaluation. AM PAC Score with Stairs: 17 * Inpatient Ask-A-Doc - Miguel Espinosa MD - 08/24/2023 10:43 AM EST ASK-A-DOC Inpatient Note [facility]-[address] [address] Name: Soco Guevara Location: [facility] [id number] Date: 08/24/2023 Time: 10:43 AM Date of Response: 08/24/2023 Assessment: LE wounds in setting of chronic lymphedema Thrombocytosis Celiac disease ?IBD Yeast in stool Recommendations: D/C pip-tazo and vancomycin (done by me) Consider biopsy of wound to rule out pyoderma Plans for colonoscopy noted Ampicillin-sulbactam 3g IV q 6 for now Unclear if she needs abx or not, but was febrile on admission. Complicated picture with multiple medical issues identified. Not clear any one infection would tie this together. Will transition to amp-sulbactam for the LE wounds right now, but would hope she could either have this stopped or be converted to a po agent by the time of discharge. Time spent: 30 minutes * Ancillary Progress Note - Pavel Crocker, PT - 08/23/2023 3:15 PM EST PROGRESS NOTE - Physical Therapy [facility] [address] Name: Soco Guevara Location: [facility] [id number] Date: 08/23/2023 Time:1514 Soco Guevara is a/an 48 year old female. Patient Status: Inpatient Insurance: [facility] Plan: [employer] COMM[employer] PLAN Product Type: *No Product type* Patient Seen: at bedside, nursing cleared patient for therapy Patient Identified By: Name, ID Band and Date Diagnosis: Gait dysfunction, generalized weakkness (08/23/231514) Status of treatment: Treatment completed (08/23/231514) Orders: PT evaluation and treatment (08/23/231514) Weight Bearing Status: Weight bearing as tolerated;RUE;LUE;RLE;LLE (08/23/231514) Precautions: Falls;Safety;Isolation (08/23/231514) Total Treatment Time--free text: 15 (08/23/231514) Subjective: Cooperative for PT treatment Pain: No complaints of pain P.T. Bed Mobility Roll (Left): Modified Independent (08/21/23 749) Supine-Sit: Minimal Assistance (08/21/23 145) Transfers Sit-Stand: Contact Guard (08/23/231514) Stand-Sit: Contact Guard (08/23/231514) W/C-Bed/Mat: Contact Guard (08/22/23 1320) Ambulation: Distance ambulated (feet): 175 Assistive Device: Rolling walker Assist: Supervision Balance Sit (Static): Normal (08/23/231514) Sit (Dynamic): Good (08/23/231514) Stand (Static): Good (08/23/231514) Stand (Dynamic): Good (08/23/231514) Patient and or Family Goal(s): to get well and to return home Topic of Education: Goals/plan of care Method of Education: Verbal discussion and explanation provided to patient who verbalized understanding and or agreement of this information. Treatment Provided: Gait Training 15 minutes: gait training with rolling walker Alarm Status Patient positioned in: Bed (08/23/231514) With: Call denis in reach (08/23/231514) Patient Education Review of Precautions: Safety;Fall (08/23/231514) Safety Awareness: Patient verbalizes insight of current deficits;Patient demonstrates carryover of insight during functional tasks;Patient can communicate basic needs (08/23/231514) Preferred learning method: Combination (08/23/231514) Barriers to learning: Medical Status (08/23/231514) Method of Education: Verbalized to patient;Patient demonstrated task;Verbalized to family/caregiver(08/23/231514) Assessment: PT treatment completed. The patient was able to complete all functional transfers with CGA and then ambulate 175 feet with a rolling walker with supervision. Deficits requiring P.T. treatment needs: Safety;Mobility;Balance;Weakness;Endurance (08/22/23 1320) Equipment needs: Rolling walker (08/23/231514) Plan: Continue with current treatment plan established on evaluation. AM PAC Score with Stairs: 19 * [facility], Praful Herrmann MD - 08/23/2023 1:35 PM EST 48-year-old female with reactive thrombocytosis, chronic diarrhea, chronic LE non-healing ulcers, and iron deficiency anemia initially presenting with generalized weakness and ambulatory dysfunction.ED work-up revealed leukocytosis. Patient was started on fluids, blood cultures were drawn, antibiot ics were started, surgery was consulted for the wound debridement, and imaging was ordered. CT abdomen/ pelvis w/ contrast showed fluid-filled small and large bowel correlating with any history of diarrheal illness; no significant bowel wall thickening; mild mesenteric lymphadenopathy and mesenteric fat stranding overall similar to prior exam on 12/19/2022, and findings concerning for possible pelvic venous insufficiency, correlating with any history of chronic pelvic pain. CT chest w/ contrastshowed no acute thoracic abnormality. CXR, XR L-spine, XR T-spine, XR TibFib showed no acute findings. CT head/ brain wo/contrast showed no intracranial abnormalities. Vascular venous duplex of BLE showed no evidence of acute DVT.Nutrition and GI was consulted as well due to possible Celiac disease. Heme/Onc consulted concerning possible multiple myeloma. C diff panel and GI pathogen panel negative. UA negative. RPP negative. Celiac Disease Serology negative. General surgery, Dermatology and IDconsulted. PT/OT consulted with recommendation for rolling walker. Cardiology consulted for intermittent complete heart block, with patient not agreeable to pacemaker; continued to monitor on telemetry with recommendation of Zio patch as an outpatient * Ancillary Progress Note - Yadira Augustin RDN - 08/23/2023 12:02 PM EST CLINICAL NUTRITION CONSULT/PROGRESS NOTE [facility]-[address] [id number] Name: Soco Guevara Location: [facility] [id number] Date: 08/23/2023 Time: 12:03 PM How patient was identified (select 2): Wristband and Name Discussed in interdisciplinary rounds: Cuca Soco Guevara is a 48 year old female being seen for follow-up Primary Diagnosis: Generalized weakness Other pertinent information: Patient seen with at bedside. Patient reports she is doing 'okay' with her appetite and PO intakes, and is taking and enjoying the prostat max supplement. Patientdoes tell me she is still struggling with diarrhea; GI following. Will continue with current nutrition plan of care at this time. NUTRITION ASSESSMENT: Past medical/surgical history and medications reviewed. Food/Nutrition-Related History Diet: Gluten Free Percentage of meal intake: Greater than 75% Oral Nutrition Supplement (ONS): ProStat Max (1 oz, 80 calories, 11 grams protein, 60 mg phosphorus, 40 mg potassium) TID Pertinent medications/vitamins/minerals/supplements: Medications reviewed. No significant nutritionrelated medications noted. Pertinent Biochemical Data: Labs reviewed. There are no biochemical abnormalities requiring a change in nutrition plan of care at this time. Nutrition-Focused Physical Findings: Appearance: Ill-appearing and Thin Respiratory support: Supplemental O2 Delivery: Room Air, None Nasal/Oral: No issues identified Digestive: Appetite fair and Diarrhea Last Bowel Movement: 08/23/23 (08/23/23 0400) Cognition: Awake, alert and Oriented Skin: Intact Enteral access: None Nutrition Focused Physical Exam: NFPE completed on 08/19/2023 Subcutaneous Fat Loss: Orbital fat pads: WNL Buccal fat: WNL Tricep: WNL Rib: WNL Muscle Loss: Temples: Severe Clavicles: Mild Shoulders: Mild Scapula: Mild Interosseous: WNL Edema Location: Lower extremities;Both (08/23/23 09) Edema Assessment: +2 - Description (08/23/23 09) Anthropometrics Measurements Height: 162.6 cm (5' 4") (08/18/23 2200) Admission weight: 53.2 kg Weight: 53 kg (116 lb 13.5 oz) (08/23/23 0600) BMI: 19.76 (08/18/23 2200) Usual Body Weight: 52.3 kg Interpretation of Weight Change Prior to Admission: No recent/significant weight change Weight Changes Since Admission: Stable Nutrition Prescription: Energy needs: 25-30 Kcal/kg Kcal/day: 3659-9922 Based on current weight Protein needs: 1.2-1.3 gm/kg Protein: 64-69 Based on current weight Fluid needs: 30 ml/kg Fluid: 1590 ml/day Based on current weight Malnutrition: Malnutrition Present: Yes (08/19/231406) Adult Malnutrition Classification: Moderate (08/19/231406) Malnutrition Characteristics: Inadequate energy intake;Muscle loss (01/13/24 1407) Malnutrition Care Plan: Patient meets ASPEN/AND criteria for moderate malnutrition. Currently able to meet >75% estimated nutrition requirements, consuming >75% of meals and 100% of oral nutrition supplements. Enteral and parenteral nutrition are contraindicated at this time as patient's oral intake is meeting their estimated nutrition needs. Clinical nutrition to follow forsustained adequate oral intake and adjust malnutrition care plan accordingly. NUTRITION DIAGNOSIS: Malnutrition moderate related to chronic illness as evidenced by patient consuming less than 75% ofestimated energy requirements x 1 month and severe muscle loss. Goals: Patient will continue to consume >75% of meals and supplements daily. Previous diagnosis/Goals: Patient doing well, consuming 100% of meals and supplements NUTRITION INTERVENTION/PLAN: Continue current care plan Clinical Nutrition Recommendations: Diet: Continue current nutrition [...] Yadira Augustin, MS, RDN, LDN Clinical Dietitian [facility] Available via [place] Text [phone] * Ancillary Progress Note - Annita Guevara PTA - 08/22/2023 1:20 PM EST PROGRESS NOTE - Physical Therapy [facility]-[address] [address] Name: Soco Guevara Location: [facility] [id number] Date: 08/22/2023 Time: 1320 Soco Guevara is a/an 48 year old female. Patient Status: Inpatient Insurance: Payor: [employer] Plan: [employer] Product Type: *No Product type* Patient Seen: at bedside, nursing cleared patient for therapy Patient Identified By: Name, ID Band and Date Diagnosis: Gait dysfunction, generalized weakkness (08/22/23 1320) Status of treatment: Treatment completed (08/22/23 1320) Orders: OOB (08/22/231319) Weight Bearing Status: Weight bearing as tolerated;RUE;LUE;RLE;LLE (08/22/231319) Precautions: Falls;Safety;Isolation (08/22/231319) Total Treatment Time--free text: 15 (08/22/231319) Subjective: I can walk ok Pain: No complaints of pain P.T. Bed Mobility Roll (Left): Modified Independent (08/21/231455) Supine-Sit: Minimal Assistance (08/21/231455) Transfers Sit-Stand: Minimal Assistance (08/22/231319) Stand-Sit: Contact Guard (08/22/231319) W/C-Bed/Mat: Contact Guard (08/22/231319) Ambulation: Distance ambulated (feet): 165 Assistive Device: Rolling walker Assist: Contact Guard Balance Sit (Static): Good (08/22/231319) Sit (Dynamic): Good (08/22/231319) Stand (Static): Good (08/22/231319) Stand (Dynamic): Fair (08/22/231319) Patient and or Family Goal(s): to return home Topic of Education: Safety with mobility and Use of assistive device Method of Education: Demonstrated the above task to pt: demonstrated the exercise and or task Treatment Provided: Gait Training 15 minutes: gait training with rolling walker Alarm Status Patient positioned in: Bed (08/22/231319) With: Call denis in reach (08/22/231319) Patient Education Review of Precautions: Safety;Fall (08/22/231319) Safety Awareness: Patient verbalizes insight of current deficits;Patient demonstrates carryover of insight during functional tasks;Patient can communicate basic needs (08/22/231319) Preferred learning method: Combination (08/22/231319) Barriers to learning: Medical Status (08/22/231319) Method of Education: Verbalized to patient;Patient demonstrated task;Verbalized to family/caregiver(08/22/231319) Assessment: Pt sitting at EOB with family present. Min A sit to stand to RW. Gt with Rw approx 165 ft with CGA. Manages walker well with some vc's to avoid obstacles. Back into bed with Supervision. Call denis in reach. Deficits requiring P.T. treatment needs: Safety;Mobility;Balance;Weakness;Endurance (08/22/23 1320) Equipment needs: Rolling walker (08/21/23 9326) Plan: Continue with current treatment plan established on evaluation. AM PAC Score with Stairs: 19 * Ancillary Progress Note - Ze Cespedes RVT - 08/21/2023 1:06 PM EST Bilateral legs: no evidence of DVT * Ancillary Progress Note - Neleam Walsh PT - 08/21/2023 8:56 AM EST Per RN, PT consult on hold 08/21 due to hypotension. Will reschedule PT consult for 08/22 and it willbe completed once patient is medically cleared for participation. * Ancillary Progress Note - Melany Hemphill OT - 08/21/2023 8:50 AM EST This OT checked with RN prior to attempting to see pt this AM. Per RN, hold therapy d/t hypotension. Consult will be attempted at a later time or date dependent on schedule, pt tolerance, and pt medical status. * Pt Handout (on AVS) - Yadira Augustin RDN - 08/19/2023 1:08 PM EST Images from the original note were not included. Prepared for: Soco Guevara [id number] Celiac Disease Celiac disease is caused by an immune-based reaction to gluten in food. Gluten is a protein found in many grains such as wheat, barley, and rye. Celiac disease affects tiny, fingerlike stalks (villi)in the small bowel (intestine). Normally, the villi make it possible for the small bowel to absorb nutrients from the food you eat. But celiac disease damages the villi. As a result, you can?t absorbthe nutrients you need, even if you eat plenty of food. Celiac disease is an autoimmune disease. You can manage the disease by removing gluten from your diet. This relieves your symptoms. It also reverses the damage to your small bowel. Celiac disease is sometimes called celiac sprue. With celiac disease, villi inside the small intestine become damaged and cannot absorb nutrients properly. Causes of celiac disease Celiac disease may have a genetic component. This means it can be passed down in families. If your healthcare provider thinks that you have celiac disease, they may advise that other members of your family be checked for it as well. Symptoms of celiac disease The symptoms of celiac disease can vary for each person. Some people have no symptoms at all. If symptoms do happen, they can include: Diarrhea, constipation, or both Light colored, foul-smelling, or fatty stool Belly pain and cramping Belly swelling or bloating Weight loss Bone or joint pain Iron deficiency Headaches Tiredness and loss of energy Mood changes, irritability, and depression Infertility Unexplained elevated liver tests Canker sores Skin rash Tooth enamel problems Diagnosing celiac disease Your healthcare provider will ask about your symptoms and health history. You?ll also have a physical exam. Tests are then done to confirm the problem. These can include: Blood tests. These help check for specific proteins in the blood that are present with celiac disease. They also check for anemia and help rule out other problems. The tests are done by taking a blood sample. Upper endoscopy with biopsy. This is done to see inside the stomach and duodenum (first part of the small bowel). For the test, an endoscope is used. This is a thin, flexible tube with a tiny camera on the end. It?s inserted through the mouth and down into the stomach and duodenum. Tools are passed through the endoscope to remove tiny tissue samples (biopsy). The tissue samples are taken to a lab and looked at under a microscope. This is to check the tiny villi for damage. This test must be done while you are still eating food with gluten. This is the only way to see if gluten is damaging the villi. Capsule endoscopy. For this test, a tiny camera the size of a big pill gets swallowed. It passesthrough the small intestine, taking pictures that get evaluated for intestinal damage from celiac disease. Genetic tests. These check for problems with certain genes linked to celiac disease. They are done by taking blood samples. Treating celiac disease To treat celiac disease, you must remove all sources of gluten from your diet. This will allow the villi to heal, so that nutrients can be absorbed normally. It?s important to follow a strict, gluten-free diet daily, even if you don?t have symptoms. If you don?t do this, the small bowel can become permanently damaged, which can lead to serious health problems. These include bone disease, cancer of the small bowel, and various nervous system disorders. You may need to take certain vitamins if your levels are low. Your healthcare provider may want to recheck your intestine with an upper endoscopy or repeat the celiac blood tests to make sure the tissue has healed. Sources of gluten Gluten is found in wheat, barley, and rye. The most common foods with gluten are those made with wheat flour. These include bread, pasta, cake, and cereal. Gluten is also often found in beer, gravies, salad dressings, and most packaged foods. It's even found in some nonfood products, such as certain medicines and cosmetics. Your healthcare provider can refer you to a dietitian to high school counselor you about what you should avoid. The resources below will also give you lists of food and products that contain gluten. Follow-up You?ll meet with your healthcare provider from time to time to monitor your health. During these visits, routine blood tests are often done to make sure your condition is under control. Your healthcare provider can also refer you to other providers, or support and advocacy groups, to help you cope with your condition. Online resources can tell you how to manage your condition day to day. This information could include recipes, restaurants that have gluten-free options, and grocery stores that offer a good selection of foods. A dietitian can help you make a diet plan that's appropriate and safe. To learn more The following resources can help you learn more about celiac disease and how to manage it: Celiac Disease Foundation National Celiac Association Gluten Intolerance Group National [place] of Diabetes and Digestive and Kidney Diseases Last Reviewed Date: 04/07/202119992017-4353 [employer]. All rights reserved. This information is not intended as a substitute for professional medical care. Always follow your healthcare professional's instructions. * Pt Handout (on AVS) - Yadira Augustin CORTNEY Patel - 08/19/2023 1:08 PM EST Images from the original note were not included. Prepared for: Soco Guevara [id number] Celiac Disease Celiac disease is caused by an immune-based reaction to gluten in food. Gluten is a protein found in many grains such as wheat, barley, and rye. Celiac disease affects tiny, fingerlike stalks (villi)in the small bowel (intestine). Normally, the villi make it possible for the small bowel to absorb nutrients from the food you eat. But celiac disease damages the villi. As a result, you can?t absorbthe nutrients you need, even if you eat plenty of food. Celiac disease is an autoimmune disease. You can manage the disease by removing gluten from your diet. This relieves your symptoms. It also reverses the damage to your small bowel. Celiac disease is sometimes called celiac sprue. With celiac disease, villi inside the small intestine become damaged and cannot absorb nutrients properly. Causes of celiac disease Celiac disease may have a genetic component. This means it can be passed down in families. If your healthcare provider thinks that you have celiac disease, they may advise that other members of your family be checked for it as well. Symptoms of celiac disease The symptoms of celiac disease can vary for each person. Some people have no symptoms at all. If symptoms do happen, they can include: Diarrhea, constipation, or both Light colored, foul-smelling, or fatty stool Belly pain and cramping Belly swelling or bloating Weight loss Bone or joint pain Iron deficiency Headaches Tiredness and loss of energy Mood changes, irritability, and depression Infertility Unexplained elevated liver tests Canker sores Skin rash Tooth enamel problems Diagnosing celiac disease Your healthcare provider will ask about your symptoms and health history. You?ll also have a physical exam. Tests are then done to confirm the problem. These can include: Blood tests. These help check for specific proteins in the blood that are present with celiac disease. They also check for anemia and help rule out other problems. The tests are done by taking a blood sample. Upper endoscopy with biopsy. This is done to see inside the stomach and duodenum (first part of the small bowel). For the test, an endoscope is used. This is a thin, flexible tube with a tiny camera on the end. It?s inserted through the mouth and down into the stomach and duodenum. Tools are passed through the endoscope to remove tiny tissue samples (biopsy). The tissue samples are taken to a lab and looked at under a microscope. This is to check the tiny villi for damage. This test must be done while you are still eating food with gluten. This is the only way to see if gluten is damaging the villi. Capsule endoscopy. For this test, a tiny camera the size of a big pill gets swallowed. It passesthrough the small intestine, taking pictures that get evaluated for intestinal damage from celiac disease. Genetic tests. These check for problems with certain genes linked to celiac disease. They are done by taking blood samples. Treating celiac disease To treat celiac disease, you must remove all sources of gluten from your diet. This will allow the villi to heal, so that nutrients can be absorbed normally. It?s important to follow a strict, gluten-free diet daily, even if you don?t have symptoms. If you don?t do this, the small bowel can become permanently damaged, which can lead to serious health problems. These include bone disease, cancer of the small bowel, and various nervous system disorders. You may need to take certain vitamins if your levels are low. Your healthcare provider may want to recheck your intestine with an upper endoscopy or repeat the celiac blood tests to make sure the tissue has healed. Sources of gluten Gluten is found in wheat, barley, and rye. The most common foods with gluten are those made with wheat flour. These include bread, pasta, cake, and cereal. Gluten is also often found in beer, gravies, salad dressings, and most packaged foods. It's even found in some nonfood products, such as certain medicines and cosmetics. Your healthcare provider can refer you to a dietitian to high school counselor you about what you should avoid. The resources below will also give you lists of food and products that contain gluten. Follow-up You?ll meet with your healthcare provider from time to time to monitor your health. During these visits, routine blood tests are often done to make sure your condition is under control. Your healthcare provider can also refer you to other providers, or support and advocacy groups, to help you cope with your condition. Online resources can tell you how to manage your condition day to day. This information could include recipes, restaurants that have gluten-free options, and grocery stores that offer a good selection of foods. A dietitian can help you make a diet plan that's appropriate and safe. To learn more The following resources can help you learn more about celiac disease and how to manage it: Celiac Disease Foundation National Celiac Association Gluten Intolerance Group National [place] of Diabetes and Digestive and Kidney Diseases Last Reviewed Date: 04/07/202119999484-9492 [employer]. All rights reserved. This information is not intended as a substitute for professional medical care. Always follow your healthcare professional's instructions. * Pt Handout (on AVS) - Yadira Augustin RDN - 08/19/2023 1:07 PM EST Images from the original note were not included. Prepared for: Soco Guevara [id number] Gluten-Free Diet for Celiac Disease Celiac disease means that you are sensitive to a protein called gluten. Gluten is found in certain grains. When you eat gluten, your immune system causes harm to your small intestines. The treatment for celiac disease is to stay away from foods and products that contain gluten. You will need to do this for the rest of your life. Resist the temptation to ?cheat.? Even a small amount of gluten can cause symptoms to return. And it can harm your body. This sheet gives you the basics about a gluten-free diet. If you need help, a registered dietitian can teach you what foods and other products have gluten and how to keep away from them. Reading food labels will help you stay away from foods with gluten. Always read labels! Many foods may contain gluten, even if you think they don't. Get into the habit of reading ingredient labels before you eat. Choosing foods The most common source of gluten is wheat flour (this includes white flour). Wheat flour is used tomake many baked goods, including breads, pastas, cereals, pastries, and pizza dough. Gluten is alsofound in many foods that you might not think would have it. You will need to read food labels to look for gluten in everything you eat. But your diet does not need to be boring. Many foods are naturally gluten-free. And many foods commonly made with wheat flour now come in gluten-free forms. Foods to stay away from Foods you can eat Bread, cereals, pasta, pastries, couscous, or pizza dough made with wheat flour (including white flour, farina, farro, emmer, durum, cecilia, and semolina) Bread, cereals, pasta, pastries, or pizza dough made with rice flour, almond flour, beans, potatoes, and other gluten-free substitutes Foods containing rye, barley (including malt), spelt, kamut, triticale, bashir's yeast, and bulgur Foods containing corn, cassava, rice, amaranth, buckwheat, millet, quinoa, arrowroot, teff, soy, andtapioca Processed meats Fresh meats and seafood (beef, chicken, turkey, starkey, pork, fish, shellfish), beans, and tofu Some dairy products with additives Many plain dairy products Many sauces, gravies, dressings, and condiments, including traditional soy sauce Vinegar, oils, andgluten-free substitutes, tamari Some granola bars and energy bars Granola bars and energy bars labeled gluten-free Some beers and spirits Wine, and gluten-free beers and distilled spirits Some soups Gluten-free soups Fruits and vegetables that are fried or breaded Fresh fruits and vegetables Many packaged foods Packaged foods labeled gluten-free Oats, especially if processed in a facility containing gluten products (check with your healthcare provider) Gluten-free oats Communion wafers Gluten-free communion wafers If you are exposed to gluten by accident Staying gluten-free means always being aware. Even if you are very careful, mistakes can happen. The food you eat can't come into contact with gluten. This is called cross-contamination. Your meals must be made with utensils that have not touched foods that contain gluten. Shared knives, cutting boards, toasters, and storage containers are risks for gluten exposure. Shared condiments may have crumbs that contain gluten. At restaurants, parties, and other places where you eat food prepared by others, ask how the food was made. Gluten can also be found in some nonfood items. Some medicines contain gluten. So do some vitamin supplements. Ask your pharmacist before taking a medicine or supplement. Also, some shampoos, lotions, toothpastes, makeup, lipsticks as well as lip gloss and lip balm, glues, soaps, and other products contain gluten. It can be possible to ingest some gluten when using these projects. For example, this can happen if you use a lotion that has gluten and then touch food you eat. Children's darren and similar products have gluten. Any adult or child with celiac disease should wash their hands after handling these. There is not much you can do if you have accidentally had gluten. Here are tips that might help yourecover after being exposed to gluten: Drink plenty of fluids Eat small, frequent meals Eat simple gluten-free soups or broths Stay away from very spicy or fatty foods Drink janneth or peppermint tea Rest and relax Get medical attention if you have severe symptoms such as vomiting or diarrhea Coping with gluten-free living Living gluten-free can be hard. But it can be done. Groceries have many gluten- free foods, but it'sstill a big change for many people. You may be upset that you can't eat your favorite foods, or eatfreely at restaurants, parties, or over the holidays. Household members may also be upset by the strict controls over food. If you face problems like these, think about joining a celiac disease support group. Support groupsoffer tips on how to make a gluten-free lifestyle easier on you and the people you live with. You can find ways to involve the people in your household. There are many ways to make gluten-free group meals. See the section on more resources below for help in finding a group. Bring safe foods that you enjoy to parties and school or work events. This can help you not give into the urge to grab something you shouldn?t eat. Following up with your healthcare provider You should see your healthcare provider at least once a year for a checkup. A simple blood test canshow if your celiac disease is under control. If you are having symptoms, your healthcare provider can help you find sources of gluten you may have missed. To learn more To learn more about managing celiac disease, go to: Celiac Disease Foundation at www.celiac.org Academy of Nutrition and Dietetics at www.eatright.org National [place] of Diabetes and Digestive and Kidney Diseases at www.niddk.nih.gov/health-information/digestive-diseases Last Reviewed Date: 07/07/202219999074-9611 [employer], [employer]. All rights reserved. This information is not intended as a substitute for professional medical care. Always follow your healthcare professional's instructions. * Pt Handout (on AVS) - Yadira Augustin RDN - 08/19/2023 1:06 PM EST Images from the original note were not included. Prepared for: [place] [id number] Gluten-Free Diet for Celiac Disease Celiac disease means that you are sensitive to a protein called gluten. Gluten is found in certain grains. When you eat gluten, your immune system causes harm to your small intestines. The treatment for celiac disease is to stay away from foods and products that contain gluten. You will need to do this for the rest of your life. Resist the temptation to ?cheat.? Even a small amount of gluten can cause symptoms to return. And it can harm your body. This sheet gives you the basics about a gluten-free diet. If you need help, a registered dietitian can teach you what foods and other products have gluten and how to keep away from them. Reading food labels will help you stay away from foods with gluten. Always read labels! Many foods may contain gluten, even if you think they don't. Get into the habit of reading ingredient labels before you eat. Choosing foods The most common source of gluten is wheat flour (this includes white flour). Wheat flour is used tomake many baked goods, including breads, pastas, cereals, pastries, and pizza dough. Gluten is alsofound in many foods that you might not think would have it. You will need to read food labels to look for gluten in everything you eat. But your diet does not need to be boring. Many foods are naturally gluten-free. And many foods commonly made with wheat flour now come in gluten-free forms. Foods to stay away from Foods you can eat Bread, cereals, pasta, pastries, couscous, or pizza dough made with wheat flour (including white flour, farina, farro, emmer, durum, cecilia, and semolina) Bread, cereals, pasta, pastries, or pizza dough made with rice flour, almond flour, beans, potatoes, and other gluten-free substitutes Foods containing rye, barley (including malt), spelt, kamut, triticale, bashir's yeast, and bulgur Foods containing corn, cassava, rice, amaranth, buckwheat, millet, quinoa, arrowroot, teff, soy, andtapioca Processed meats Fresh meats and seafood (beef, chicken, turkey, starkey, pork, fish, shellfish), beans, and tofu Some dairy products with additives Many plain dairy products Many sauces, gravies, dressings, and condiments, including traditional soy sauce Vinegar, oils, andgluten-free substitutes, tamari Some granola bars and energy bars Granola bars and energy bars labeled gluten-free Some beers and spirits Wine, and gluten-free beers and distilled spirits Some soups Gluten-free soups Fruits and vegetables that are fried or breaded Fresh fruits and vegetables Many packaged foods Packaged foods labeled gluten-free Oats, especially if processed in a facility containing gluten products (check with your healthcare provider) Gluten-free oats Communion wafers Gluten-free communion wafers If you are exposed to gluten by accident Staying gluten-free means always being aware. Even if you are very careful, mistakes can happen. The food you eat can't come into contact with gluten. This is called cross-contamination. Your meals must be made with utensils that have not touched foods that contain gluten. Shared knives, cutting boards, toasters, and storage containers are risks for gluten exposure. Shared condiments may have crumbs that contain gluten. At restaurants, parties, and other places where you eat food prepared by others, ask how the food was made. Gluten can also be found in some nonfood items. Some medicines contain gluten. So do some vitamin supplements. Ask your pharmacist before taking a medicine or supplement. Also, some shampoos, lotions, toothpastes, makeup, lipsticks as well as lip gloss and lip balm, glues, soaps, and other products contain gluten. It can be possible to ingest some gluten when using these projects. For example, this can happen if you use a lotion that has gluten and then touch food you eat. Children's darren and similar products have gluten. Any adult or child with celiac disease should wash their hands after handling these. There is not much you can do if you have accidentally had gluten. Here are tips that might help yourecover after being exposed to gluten: Drink plenty of fluids Eat small, frequent meals Eat simple gluten-free soups or broths Stay away from very spicy or fatty foods Drink janneth or peppermint tea Rest and relax Get medical attention if you have severe symptoms such as vomiting or diarrhea Coping with gluten-free living Living gluten-free can be hard. But it can be done. Groceries have many gluten- free foods, but it'sstill a big change for many people. You may be upset that you can't eat your favorite foods, or eatfreely at restaurants, parties, or over the holidays. Household members may also be upset by the strict controls over food. If you face problems like these, think about joining a celiac disease support group. Support groupsoffer tips on how to make a gluten-free lifestyle easier on you and the people you live with. You can find ways to involve the people in your household. There are many ways to make gluten-free group meals. See the section on more resources below for help in finding a group. Bring safe foods that you enjoy to parties and school or work events. This can help you not give into the urge to grab something you shouldn?t eat. Following up with your healthcare provider You should see your healthcare provider at least once a year for a checkup. A simple blood test canshow if your celiac disease is under control. If you are having symptoms, your healthcare provider can help you find sources of gluten you may have missed. To learn more To learn more about managing celiac disease, go to: Celiac Disease Foundation at www.celiac.org Academy of Nutrition and Dietetics at www.eatright.org National [place] of Diabetes and Digestive and Kidney Diseases at www.niddk.nih.gov/health-information/digestive-diseases Last Reviewed Date: 07/07/202219993477-2915 [employer]. All rights reserved. This information is not intended as a substitute for professional medical care. Always follow your healthcare professional's instructions. * Communication - Chuck Hernandez MD - 08/19/2023 12:26 AM EST Patient reported by nurse to have had 6 second pause on heart monitor, -will check echo, trop, and cardiology consult -check tsh Also report of fever tonight -will start empiric abx, check cultures * Medical Necessity - Kendra Ames RN - 08/18/2023 9:02 PM EST AdmissionCare Guideline: Neurology, Inpatient Based on the indications selected for the patient, the bed status of Admit to Inpatient was determined to be MET The following indications were selected as present at the time of evaluation of the patient: Neurologic finding requiring inpatient care, as indicated by 1 or more of the following: - - Weakness that is progressive or severe (eg, inpatient care needed due to functional disability, concern for safety) Additional Information: history of iron deficiency anemia and 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 For the last 3 weeks she has had progressive weaknessin her lower extremities. She is having difficulty walking that is worsening as well. AdmissionCare documentation entered by: [place] Ames [facility] [place] [email or web address], 27th edition, Copyright 2022 [employer] All Rights Reserved. [id number] Solely for purpose of utilization review and payment; not a diagnostic tool documented in this encounter Plan of Treatment Upcoming Encounters Date Type Department Care Team (Latest Contact Info) Description 11/16/2023 11:30 AM EDT Hospital Encounter ENDO [facility], Endoscopy [address] [id number] Tyler Perez MD [address] [place] [address] 11/16/2023 11:30 AM EDT - 11/16/2023 12:00 PM EDT Surgery ENDO [facility], Endoscopy [address], [place] [address] Tyler Perez MD [address] [place] [address] ESOPHAGOGASTRODUODENOSCOPY (EGD), FLEXIBLE, TRANSORAL, DIAGNOSTIC Pending Results Name Type Priority Associated Diagnoses Date /Time CULTURE, WOUND, DEEP, AEROBI C AND ANAEROBIC Lab Routine 08/20/2023 4:13 PM EST MYGENVAR MYELOPROLIFERATIVE PANEL, NEXT GENERATION SEQUENCING Lab Routine 08/21/2023 12:34 PM EST SOLUBLE TRANSFERRIN RECEPTOR Lab Add-on 08/21/2023 3:32 AM EST Scheduled Orders Name Type Priority Associated Diagnoses Order Schedule VASC ANKLE BRACHIAL INDICES WITHOUT PPG (PAD) Medical Imaging Routine One Ti me for 1 Occurrences starting 08/20/2023 until 08/20/2023 MYGENVAR MYELOPROLIFERATIVE PANEL, NEXT GENERATION SEQUENCING Lab Routine One T miriam for 1 Occurrences starting 08/21/2023 until 08/21/2023, 1 completed SOLUBLE TRANSFERRIN RECEPTOR Lab Add-on One Time for 1 Occurrences starting 08/21/2023 until 08/21/2023 CBC WITH WBC DIFFERENTIAL Lab Routine Thrombocytosis Anemia due to chronic blood loss Expected: 09/02/2023, Expires: 08/26/2024 BASIC METABOLIC PANEL Lab Routine Thrombocytosis Anemia due to chronic blood loss Expected: 09/02/2023, Expires: 08/26/2024 Scheduled Procedures Name Priority Associated Diagnoses Date/Ti [...] Procedure Name Priority Date/Time Associated Diagnosis Comments BASIC METABOLIC PANEL Routine 08/26/2023 7:08 AM EST CBC Routine 08/26/2023 7:08 AM EST CLOSTRIDIUM DIFFICILE, PCR Routine 08/26/2023 4:29 AM EST BASIC METABOLIC PANEL Routine 08/25/2023 6:18 AM EST CBC Routine 08/25/2023 6:18 AM EST BASIC METABOLIC PANEL Routine 08/24/2023 6:06 AM EST CBC Routine 08/24/2023 6:06 AM EST VANCOMYCIN RANDOM Timed 08/23/2023 6:2 0 AM EST BASIC METABOLIC PANEL Routine 08/23/2023 6:20 AM EST CBC Routine 08/23/2023 6:20 AM EST VASC ANKLE BRACHIAL INDICES WITHOUT PPG (PAD) Routine 08/22/2023 11:28 AM EST VANCOMYCIN RANDOM Timed 08/22/2023 6:0 3 AM EST BASIC METABOLIC PANEL Routine 08/22/2023 6:03 AM EST CBC Routine 08/22/2023 6:03 AM EST ECHO, COMPLETE (2D), TRANS-THORACIC Routine 08/21/2023 2:35 PM EST Cardiac arrhythmia, unspecified EXTRA GOLD TOP Routine 08/21/2023 2:18 PM EST EXTRA TUBES Routine 08/21/2023 2:18 PM EST HLA TYPING FOR CELIAC DISEASE Routine 08/21/2023 2:15 PM EST VASC DUPLEX VENOUS LE BILAT Routine 08/21/2023 1:06 PM EST GASTROINTESTINAL PATHOGEN PANEL, STOOL Routine 08/21/2023 9:27 AM EST GASTROINTESTINAL PATHOGEN PANEL CULTURE Routine 08/21/2023 9:27 AM EST GASTROINTESTINAL PATHOGEN PANEL PCR Routine 08/21/2023 9:27 AM EST CLOSTRIDIUM DIFFICILE, PCR Routine 08/21/2023 9:27 AM EST CBC Routine 08/21/2023 3:32 AM EST BLOOD GAS, VENOUS Routine 08/21/2023 3:3 1 AM EST BASIC METABOLIC PANEL Routine 08/21/2023 3:31 AM EST D-DIMER Routine 08/21/2023 3:31 AM EST FOLIC ACID Add-on 08/21/2023 3:31 AM EST LACTATE Routine 08/21/2023 3:31 AM EST URINE PROTEIN ELECTROPHORESIS REFLEX PROFILE, RANDOM URINE Routine 08/20/2023 6:48 PM EST CULTURE, WOUND, DEEP, AEROBIC AND ANAEROBIC Routine 08/20/2023 4:13 PM EST CELIAC DISEASE SEROLOGY Routine 08/20/19 3:16 PM EST CELIAC DISEASE SEROLOGY REFLEX PANEL Routine 08/20/2023 3:16 PM EST SERUM PROTEIN ELECTROPHORESIS REFLEX PROFILE Routine 08/20/2023 3:16 PM EST IMMUNOGLOBULIN QUANTITATIVE Add-on 08/20/2023 3:16 PM EST SERUM FREE LIGHT CHAINS Routine 08/20/19 3:16 PM EST FOLIC ACID Add-on 08/20/2023 3:16 PM EST FERRITIN Add-on 08/20/2023 3:16 PM EST VITAMIN B12 Add-on 08/20/2023 3:16 PM EST VANCOMYCIN RANDOM Timed 08/20/2023 6:0 1 AM EST BASIC METABOLIC PANEL Routine 08/20/2023 6:01 AM EST CBC Routine 08/20/2023 6:01 AM EST BASIC METABOLIC PANEL STAT 08/19/2023 8:[address] ABD/PELVIS W IV CONTRAST - WO ORAL CONTRAST Routine 08/19/2023 9:[address] CHEST W CONTRAST Routine 08/19/2023 9 :39 AM EST TROPONIN T, HIGH SENSITIVITY Routine 08/19/2023 6:18 AM EST PROCALCITONIN Add-on 08/19/2023 6:18 AM EST CRP (INFLAMMATORY MARKER) Add-on 08/19/2023 6:18 AM EST BASIC METABOLIC PANEL Routine 08/19/2023 6:18 AM EST PT INR Routine 08/19/2023 6:18 AM EST ERYTHROCYTE SEDIMENTATION RATE (ESR) Add-on 08/19/2023 6:18 AM EST CBC Routine 08/19/2023 6:18 AM EST MAGNESIUM Add-on 08/19/2023 6:18 AM EST HC ECG TRACING ONLY Routine 08/19/2023 4 :23 AM EST Sinus pause TROPONIN T, HIGH SENSITIVITY Routine 08/19/2023 1:27 AM EST CULTURE, BLOOD Routine 08/19/2023 1:27 AM EST CULTURE, BLOOD Routine 08/19/2023 1:22 AM EST CULTURE, URINE, QUANTITATIVE Routine 08/18/2023 11:54 PM EST MRSA SCREEN, PCR Routine 08/18/2023 10:2 1 PM EST URINALYSIS, REFLEX TO MICROSCOPIC STAT 08/18/2023 9:03 PM EST XR CHEST 1 VIEW STAT 08/18/2023 8:22 PM EST XR TIB/FIB 2 VIEWS STAT 08/18/2023 8: 22 PM EST XR L SPINE AP AND LATERAL STAT 08/18/2023 8:22 PM EST XR T SPINE AP AND LATERAL STAT 08/18/2023 8:[address] HEAD/BRAIN WO CONTRAST STAT 08/18/2023 8:06 PM EST CULTURE, BLOOD Routine 08/18/2023 7:56 PM EST RESPIRATORY PATHOGEN PANEL, PCR STAT 08/18/2023 7:55 PM EST GROUP A STREP PCR STAT 08/18/2023 7:5 5 PM EST GROUP A STREP RAPID THROAT STAT 08/18/2023 7:55 PM EST LACTATE WITH REFLEX IF ABNORMAL STAT 08/18/2023 7:47 PM EST EXTRA LIGHT BLUE TOP Routine 08/18/2023 7:47 PM EST DIFFERENTIAL, AUTOMATED STAT 08/18/19 24 7:47 PM EST CRP (INFLAMMATORY MARKER) STAT 08/18/2023 7:47 PM EST COMPREHENSIVE METABOLIC PANEL STAT 08/18/2023 7:47 PM EST CBC STAT 08/18/2023 7:47 PM EST PHOSPHORUS STAT 08/18/2023 7:47 PM EST CULTURE, BLOOD Routine 08/18/2023 7:47 PM EST CBC STAT 08/18/2023 7:47 PM EST DIFFERENTIAL, TECHNOLOGIST REVIEW Routine 08/18/2023 7:47 PM EST TSH Routine 08/18/2023 7:47 PM EST MAGNESIUM STAT 08/18/2023 7:47 PM EST documented in this encounter Results * (ABNORMAL) BASIC METABOLIC PANEL (08/26/2023 7:08 AM EST) BUN 3(L) 6 - 20 mg/dL 08/26/2023 7:34 AM EST [facility] Creatinine 0.4(L) 0.5 - 1.0 mg/dL 08/26/2023 7:34 AM EST [facility] Estimated Glomerular Filtration Rate >90 >=60 mL/min 08/26/2023 7:34 AM EST [facility] Comment:eGFR is calculated b ased on the CKD-EPI 2020 equation Sodium 143 135 - 146 mmol/L 08/26/2023 7:34 AM EST [facility] Potassium 3.3(L) 3.5 - 5.1 mmol/L 08/26/2023 7:34 AM EST [facility] Chloride 111(H) 98 - 107 mmol/L 08/26/2023 7:34 AM EST [facility] CO2 22 22 - 32 mmol/L 08/26/2023 7:34 AM EST [facility] Anion Gap 10 7 - 15 mmol/L 08/26/2023 7:34 AM EST [facility] Glucose 103 70 - 120 mg/dL 08/26/2023 7:34 AM EST [facility] Calcium 8.4 8.4 - 10.2 mg/dL 08/26/2023 7:34 AM EST [facility] Blood Venous blood specimen / Unknown Venipuncture / Unknown 08/26/2023 7:08 AM EST 08/26/2023 7:16 AM EST Disha Zhao DO LAB BLOOD ORDERABLES [facility] [address] [place] [address] * (ABNORMAL) CBC (08/26/2023 7:08 AM EST) WBC 17.92(H) 4.00 - 10.80 K/uL 08/26/2023 8:14 AM EST [facility] RBC 4.25 3.85 - 5.15 M/uL 08/26/2023 8:14 AM EST [facility] HGB 12.3 12.0 - 15.3 g/dL 08/26/2023 8:[address] [facility] HCT 36.7 36.0 - 45.2 % 08/26/2023 8:[address] [facility] MCV 86.4 81.5 - 97.5 fL 08/26/2023 8:[address] [facility] MCH 28.9 27.0 - 34.0 pg 08/26/2023 8:[address] [facility] MCHC 33.5 32.0 - 36.0 g/dL 08/26/2023 8:[address] [facility] RDW 17.7 11.5 - 15.5 % 08/26/2023 8:[address] [facility] PLT 1,055(HH) 140 - 400 K/uL 08/26/2023 8:[address] [facility] MPV 9.2 6.6 - 11.1 fL 08/26/2023 8:[address] [facility] nRBCs 0 <=0 /100 WBCs 08/26/2023 8:[address] [facility] Blood Venous blood specimen / Unknown Venipuncture / Unknown 08/26/2023 7:08 AM EST 08/26/2023 7:16 AM EST Disha Zhao DO LAB BLOOD ORDERABLES LABORATORY [address] [address] * CLOSTRIDIUM DIFFICILE, PCR (08/26/2023 4:29 AM EST) Stool Consistency Semi-formed 08/26/2023 5:[address] [facility] Clostridium difficile Result Negative. No C. difficile toxin B gene DNA detected by PCR (Amplified Probe). Negative 08/26/2023 5:[address] [facility] Stool Stool specimen / Unknown Non-blood Collection / Unknown 08/26/2023 4:29 AM EST 08/26/2023 4:31 AM EST Doni Cruz DO LAB MICRO - GEN ERAL ORDERABLES LABORATORY [facility] [address] [place] [address] * (ABNORMAL) BASIC METABOLIC PANEL (08/25/2023 6:18 AM EST) BUN 3(L) 6 - 20 mg/dL 08/25/2023 7:05 AM EST LABORATORY [facility] Creatinine 0.3(L) 0.5 - 1.0 mg/dL 08/25/2023 7:05 AM EST [facility] Estimated Glomerular Filtration Rate >90 >=60 mL/min 08/25/2023 7:05 AM EST [facility] Comment:eGFR is calculated b ased on the CKD-EPI 2020 equation Sodium 141 135 - 146 mmol/L 08/25/2023 7:05 AM EST [facility] Potassium 3.5 3.5 - 5.1 mmol/L 08/25/2023 7:05 AM EST [facility] Chloride 111(H) 98 - 107 mmol/L 08/25/2023 7:05 AM EST [facility] CO2 21(L) 22 - 32 mmol/L 08/25/2023 7:05 AM EST [facility] Anion Gap 9 7 - 15 mmol/L 08/25/2023 7:05 AM EST [facility] Glucose 102 70 - 120 mg/dL 08/25/2023 7:05 AM EST [facility] Calcium 8.5 8.4 - 10.2 mg/dL 08/25/2023 7:05 AM EST [facility] Blood Venous blood specimen / Unknown Venipuncture / Unknown 08/25/2023 6:18 AM EST 08/25/2023 6:36 AM EST Disha Zhao DO LAB BLOOD ORDERABLES LABORATORY [facility] [address] [place] [address] * (ABNORMAL) CBC (08/25/2023 6:18 AM EST) WBC 18.82(H) 4.00 - 10.80 K/uL 08/25/2023 6:56 AM EST [facility] RBC 4.24 3.85 - 5.15 M/uL 08/25/2023 6:56 AM EST LABORATORY GL HGB 11.7(L) 12.0 - 15.3 g/dL 08/25/2023 6:56 AM EST LABORATORY GL HCT 35.1(L) 36.0 - 45.2 % 08/25/2023 6:56 AM EST LABORATORY GL MCV 82.8 81.5 - 97.5 fL 08/25/2023 6:56 AM EST LABORATORY GL MCH 27.6 27.0 - 34.0 pg 08/25/2023 6:56 AM EST LABORATORY GL MCHC 33.3 32.0 - 36.0 g/dL 08/25/2023 6:56 AM EST LABORATORY GL RDW 16.6 11.5 - 15.5 % 08/25/2023 6:56 AM EST LABORATORY GL PLT 1,066(HH) 140 - 400 K/uL 08/25/2023 6:56 AM EST LABORATORY GL Comment: Results rechecked. MPV 9.1 6.6 - 11.1 fL 08/25/2023 6:56 AM EST LABORATORY GL nRBCs 0 <=0 /100 WBCs 08/25/2023 6:56 AM EST LAB[facility]ATORY GL Blood Venous blood specimen / Unknown Venipuncture / Unknown 08/25/2023 6:18 AM EST 08/25/2023 6:35 AM EST Disha Zhao DO LAB BLOOD ORDERABLES LABORATORY [facility] [address] [place] [address] * (ABNORMAL) BASIC METABOLIC PANEL (08/24/2023 6:06 AM EST) BUN 2(L) 6 - 20 mg/dL 08/24/2023 6:43 AM EST LABORATORY GL Creatinine 0.3(L) 0.5 - 1.0 mg/dL 08/24/2023 6:43 AM EST LABORATORY GL Estimated Glomerular Filtration Rate >90 >=60 mL/min 08/24/2023 6:43 AM EST [facility] Comment:eGFR is calculated b ased on the CKD-EPI 2020 equation Sodium 143 135 - 146 mmol/L 08/24/2023 6:43 AM EST [facility] Potassium 3.5 3.5 - 5.1 mmol/L 08/24/2023 6:43 AM EST [facility] Chloride 112(H) 98 - 107 mmol/L 08/24/2023 6:43 AM EST [facility] CO2 21(L) 22 - 32 mmol/L 08/24/2023 6:43 AM EST [facility] Anion Gap 10 7 - 15 mmol/L 08/24/2023 6:43 AM EST [facility] Glucose 98 70 - 120 mg/dL 08/24/2023 6:43 AM EST [facility] Calcium 8.2(L) 8.4 - 10.2 mg/dL 08/24/2023 6:43 AM EST [facility] Blood Venous blood specimen / Unknown Venipuncture / Unknown 08/24/2023 6:06 AM EST 08/24/2023 6:24 AM EST Disha Zhao DO LAB BLOOD ORDERABLES LABORATORY [address] [address] * (ABNORMAL) CBC (08/24/2023 6:06 AM EST) WBC 14.98(H) 4.00 - 10.80 K/uL 08/24/2023 6:40 AM EST [facility] RBC 4.36 3.85 - 5.15 M/uL 08/24/2023 6:40 AM EST [facility] HGB 12.4 12.0 - 15.3 g/dL 08/24/2023 6:40 AM EST [facility] HCT 36.9 36.0 - 45.2 % 08/24/2023 6:40 AM EST [facility] MCV 84.6 81.5 - 97.5 fL 08/24/2023 6:40 AM EST [facility] MCH 28.4 27.0 - 34.0 pg 08/24/2023 6:40 AM EST [facility] MCHC 33.6 32.0 - 36.0 g/dL 08/24/2023 6:40 AM EST LABORATORY GL RDW 17.1 11.5 - 15.5 % 08/24/2023 6:40 AM EST LABORATORY GL PLT 1,110(HH) 140 - 400 K/uL 08/24/2023 6:40 AM EST LABORATORY GL MPV 8.8 6.6 - 11.1 fL 08/24/2023 6:40 AM EST LABORATORY GL nRBCs 0 <=0 /100 WBCs 08/24/2023 6:40 AM EST LAB[facility]ATORY GL Blood Venous blood specimen / Unknown Venipuncture / Unknown 08/24/2023 6:06 AM EST 08/24/2023 6:24 AM EST Disha Zhao DO LAB BLOOD ORDERABLES LAB[facility] [address] [place] [address] * (ABNORMAL) BASIC METABOLIC PANEL (08/23/2023 6:20 AM EST) BUN 2(L) 6 - 20 mg/dL 08/23/2023 7:36 AM EST [facility] Creatinine 0.3(L) 0.5 - 1.0 mg/dL 08/23/2023 7:36 AM EST [facility] Estimated Glomerular Filtration Rate >90 >=60 mL/min 08/23/2023 7:36 AM EST [facility] Comment:eGFR is calculated b ased on the CKD-EPI 2020 equation Sodium 141 135 - 146 mmol/L 08/23/2023 7:36 AM EST [facility] Potassium 3.6 3.5 - 5.1 mmol/L 08/23/2023 7:36 AM EST [facility] Chloride 112(H) 98 - 107 mmol/L 08/23/2023 7:36 AM EST [facility] CO2 18(L) 22 - 32 mmol/L 08/23/2023 7:36 AM EST [facility] Anion Gap 11 7 - 15 mmol/L 08/23/2023 7:36 AM EST [facility] Glucose 90 70 - 120 mg/dL 08/23/2023 7:36 AM EST [facility] Calcium 8.0(L) 8.4 - 10.2 mg/dL 08/23/2023 7:36 AM EST LABORATORY GL Blood Venous blood specimen / Unknown Venipuncture / Unknown 08/23/2023 6:20 AM EST 08/23/2023 6:47 AM EST Disha Zhao LAB BLOOD ORDERABLES Performing Organization Address City/State/[facility] Co de Phone Number LABORATORY [address] [address] * (ABNORMAL) CBC (08/23/2023 6:20 AM EST) WBC 14.71(H) 4.00 - 10.80 K/uL 08/23/2023 7:[address] [facility] RBC 4.29 3.85 - 5.15 M/uL 08/23/2023 7:[address] [facility] HGB 12.2 12.0 - 15.3 g/dL 08/23/2023 7:58 AM EST LABORATORY GL HCT 35.9(L) 36.0 - 45.2 % 08/23/2023 7:[address] [facility] MCV 83.7 81.5 - 97.5 fL 08/23/2023 7:[address] [facility] MCH 28.4 27.0 - 34.0 pg 08/23/2023 7:[address] [facility] MCHC 34.0 32.0 - 36.0 g/dL 08/23/2023 7:58 AM EST LABORATORY GL RDW 16.7 11.5 - 15.5 % 08/23/2023 7:[address] [facility] PLT 1,142(HH) 140 - 400 K/uL 08/23/2023 7:58 AM EST LABORATORY GL MPV 9.2 6.6 - 11.1 fL 08/23/2023 7:58 AM EST LABORATORY GL nRBCs 0 <=0 /100 WBCs 08/23/2023 7:58 AM EST LABORATORY GL Blood Venous blood specimen / Unknown Venipuncture / Unknown 08/23/2023 6:20 AM EST 08/23/2023 6:47 AM EST Disha Zhao DO LAB BLOOD ORDERABLES Performing Organization Address City/[facility]/ZIP Co de Phone Number LABORATORY [facility] [address] [place] [address] * VANCOMYCIN RANDOM (08/23/2023 6:20 AM EST) Vancomycin Random 20.3 10.0 - 40.0 ug/mL 08/23/2023 7:[address] [facility] Blood Venous blood specimen / Unknown Venipuncture / Unknown 08/23/2023 6:20 AM EST 08/23/2023 6:47 AM EST Magali Cerrato MD LAB BLOOD ORDERABLES Performing Organization Address [facility] Center/[facility] Co de Phone Number LABORATORY [address] [address] * VASC ANKLE BRACHIAL INDICES WITHOUT PPG (PAD) (08/22/2023 11:28 AM EST) Anatomical Region Laterality Modality Extremity, Ankle, Vascular, Lower Extremity, Bijan t Ultrasound Impressions 08/22/2023 1:39 PM EST : MALISSA at rest is 1.02 on the right and 1.38 on the left.. Please not these numbers are difficult to interpret as patient unable to tolerate inflation at her ankle due to severe pain. Regardless, bilateral lower extremity Doppler waveforms demonstrate no significant arterial occlusive disease. For the right lower extremity: Lower extremity Doppler Evaluation is normal at rest with no evidence of significant arterial occlusive disease. For the left lower extremity: Lower extremity Doppler Evaluation is normal at rest with no evidence of significant arterial occlusive disease. Narrative 08/22/2023 1:39 PM EST VASCULAR LAB RESULTS DATE OF EXAMINATION: 08/22/23 INDICATION: Bilateral L E wounds ANKLE BRACHIAL INDEX OF THE LOWER EXTREMITIES Immediately before proceeding with the vascular lab procedure reported below, the identity of the patient, the correct exam and the correct procedural site were identified. Exam performed at bedside. Continuous wave doppler and appropriate size pressure cuffs were utilized during the examination. Findings: The right and left brachial artery blood pressures are 96 mmHg and 93 mmHg respectively. On the right, the posterior tibial artery waveform is triphasic and has an amplitude which is excellent. The right dorsalis pedis artery waveform is triphasic and has an amplitude which is good. The right peroneal artery waveform is triphasic and has an amplitude which is excellent. The tibial pressure (DP) is 98 mmHg. On the left, the posterior tibial artery waveform is triphasic and has an amplitude which is excellent. The left dorsalis pedis artery waveform is triphasic and has an amplitude which is good. The left peroneal artery waveform is biphasic and has an amplitude which is good. The tibial pressure (PT) is 132 mmHg. Magali Cerrato MD RAD VASCULAR * (ABNORMAL) BASIC METABOLIC PANEL (08/22/2023 6:03 AM EST) BUN 3(L) 6 - 20 mg/dL 08/22/2023 6:51 AM EST LABORATORY [facility] Creatinine 0.4(L) 0.5 - 1.0 mg/dL 08/22/2023 6:51 AM EST LABORATORY [facility] Estimated Glomerular Filtration Rate >90 >=60 mL/min 08/22/2023 6:51 AM EST LABORATORY [facility] Comment:eGFR is calculated b ased on the CKD-EPI 2020 equation Sodium 142 135 - 146 mmol/L 08/22/2023 6:51 AM EST LABORATORY [facility] Potassium 3.6 3.5 - 5.1 mmol/L 08/22/2023 6:51 AM EST LABORATORY [facility] Chloride 114(H) 98 - 107 mmol/L 08/22/2023 6:51 AM EST LABORATORY [facility] CO2 17(L) 22 - 32 mmol/L 08/22/2023 6:51 AM EST LABORATORY [facility] Anion Gap 11 7 - 15 mmol/L 08/22/2023 6:51 AM EST LABORATORY [facility] Glucose 89 70 - 120 mg/dL 08/22/2023 6:51 AM EST LABORATORY [facility] Calcium 8.3(L) 8.4 - 10.2 mg/dL 08/22/2023 6:51 AM EST LABORATORY [facility] Blood Venous blood specimen / Unknown Venipuncture / Unknown 08/22/2023 6:03 AM EST 08/22/2023 6:15 AM EST [facility] BLOOD ORDERABLES LABORATORY [facility] [address], [place] [id number] * (ABNORMAL) CBC (08/22/2023 6:03 AM EST) WBC 13.89(H) 4.00 - 10.80 K/uL 08/22/2023 7:17 AM EST LABORATORY GL RBC 4.29 3.85 - 5.15 M/uL 08/22/2023 7:17 AM EST LABORATORY GL HGB 12.2 12.0 - 15.3 g/dL 08/22/2023 7:17 AM EST LABORATORY GL HCT 35.8(L) 36.0 - 45.2 % 08/22/2023 7:17 AM EST LABORATORY GL MCV 83.4 81.5 - 97.5 fL 08/22/2023 7:17 AM EST LABORATORY GL MCH 28.4 27.0 - 34.0 pg 08/22/2023 7:17 AM EST LABORATORY GL MCHC 34.1 32.0 - 36.0 g/dL 08/22/2023 7:17 AM EST LABORATORY GL RDW 16.9 11.5 - 15.5 % 08/22/2023 7:17 AM EST LABORATORY GL PLT 1,124(HH) 140 - 400 K/uL 08/22/2023 7:[address] [facility] MPV 8.7 6.6 - 11.1 fL 08/22/2023 7:17 AM EST LABORATORY GL nRBCs 0 <=0 /100 WBCs 08/22/2023 7:17 AM EST LABORATORY GL Blood Venous blood specimen / Unknown Venipuncture / Unknown 08/22/2023 6:03 AM EST 08/22/2023 6:16 AM EST Disha [facility] LAB BLOOD ORDERABLES LABORATORY [address] [address] * VANCOMYCIN RANDOM (08/22/2023 6:03 AM EST) Pathologist [facility] Vancomycin Random 16.0 10.0 - 40.0 ug/mL 08/22/2023 6:[address] [facility] Blood Venous blood specimen / Unknown Venipuncture / Unknown 08/22/2023 6:03 AM EST 08/22/2023 6:15 AM EST Magali Cerrato MD LAB BLOOD ORDERABLES Performing Organization Address [facility] Co de Phone Number LABORATORY [address] [address] * ECHO, COMPLETE (2D), TRANS-THORACIC (08/21/2023 2:35 PM EST) Pathologist [facility] LEFT VENTRICULAR EJECTION FRACTION 55 % [facility] CARDIOLOGY 08/21/2023 2:36 PM EST Chuck Hernandez MD ECHOCARDIOLOGY Performing Organization Address [facility] Co de Phone Number [facility] CARDIOLOGY * EXTRA GOLD TOP (08/21/2023 2:18 PM EST) Blood Venous blood specimen / Unknown Venipuncture / Unknown 08/21/2023 2:18 PM EST 08/21/2023 2:27 PM EST Magali Cerrato MD LAB BLOOD ORDERABLES Performing Organization Address [facility] Co de Phone Number LABORATORY [address] [address] * HLA TYPING FOR CELIAC DISEASE (08/21/2023 2:15 PM EST) Pathologist [facility] INTERPRETATION SEE BELOW 08/25/2023 7:10 AM EST Red Seraphim HAMIDA Comment: The patient has one of the HLA-DQ variants associated with celiac disease. More than 97% of celiac patients carry either HLA-DQ2(DQA1*05/DQB1*02) or HLA-DQ8(DQA1*03/DQB1*0302) or both. However, 39% of the general [place] population carry these HLA-DQ variants, as a consequence, the presence of HLA-DQ2 or DQ8 or both variants is not per se diagnostic of celiac disease. Genetic counseling as needed. HLA-DQ2 Positive 08/25/2023 7:10 AM EST [facility] HLA-DQ8 Negative 08/25/2023 7:10 AM EST [facility]-DQA1* 05 08/25/2023 7:10 AM EST [facility] HLA-DQA1* 05 08/25/2023 7:10 AM EST [facility] HLA-DQB1* 0201 08/25/2023 7:10 AM EST [facility] HLA-DQB1* 0201 08/25/2023 7:10 AM EST [facility] Results Reviewed by: SEE BELOW 08/25/2023 7:10 AM EST [facility] [employer] Comment: Joelle Castle, Ph.D., [facility] Bond Trader, Molecular Oncology Typing performed by PCR and hybridization with sequence specific oligonucleotide probes (SSO) using the FDA-cleared LABType(R) SSO Kit. Test Performed at: [facility] [id number] [place] [id number] Sorin Carver M.D., Ph.D.,Director of Laboratories Blood Venous blood specimen / Unknown Venipuncture / Unknown 08/21/2023 2:15 PM EST 08/21/2023 2:26 PM EST Jessica Colon PA-C LAB BLOOD ORDER [place]ON[place] [facility] [address] [place] [address] * VASC DUPLEX VENOUS LE BILAT (08/21/2023 1:06 PM EST) Anatomical Region Laterality Modality Lower Extremity, Vascular Ultras ound Impressions 08/21/2023 1:09 PM EST : Right lower extremity with no evidence of acute deep venous thrombosis. Left lower extremity with no evidence of acute deep venous thrombosis. Narrative 08/21/2023 1:09 PM EST VASCULAR LAB RESULTS DATE OF EXAM: 08/21/23 PRESENTING CONDITIONS: Generalized Edema Immediately before proceeding with the vascular lab procedure reported below, the identity of the patient, the correct exam and the correct procedural site were verified. PHYSICIAN REPORT: Lower Extremity Venous Duplex Examination Color flow Doppler, spectral analysis, and transducer compression techniques were applied during this ultrasound image examination. RIGHT LOWER EXTREMITY On duplex examination, the right common femoral vein, the sapheno-femoral junction, the femoral vein in the thigh and popliteal vein are all free of internal echoes and demonstrate normal transducer compressibility during machado scale imaging and normal respiratory and augmentation response during Doppler interrogation. The limited view of posterior tibial veins demonstrate no evidence of thrombosis. Peroneal veins not identified due to wraps. LEFT LOWER EXTREMITY On duplex examination, the left common femoral vein, the sapheno-femoral junction, the femoral vein in the thigh, and popliteal vein are all free of internal echoes and demonstrate normal transducer compressibility during machado scale imaging and normal respiratory and augmentation response during Doppler interrogation. The limited view of posterior tibial veins demonstrate no evidence of thrombosis. Peroneal veins not identified due to wraps. Magali Cerrato MD RAD VASCULAR * (ABNORMAL) GASTROINTESTINAL PATHOGEN PANEL CULTURE (08/21/2023 9:27 AM EST) Pathologist [facility] Culture Growth Yeast(A) 08/23/2023 1:22 PM EST LABORATORY [facility] Stool Stool specimen / Unknown Non-blood Collection / Unknown 08/21/2023 9:27 AM EST 08/21/2023 9:32 AM EST [facility] LABORATORY [facility] - 08/23/2023 1:22 PM EST Microbial imbalance observed Reduced normal brisa. Clinical correlation needed. No Aeromonas species or Plesiomonas species isolated. Magali Cerrato MD LAB MICRO - GENERAL ORDERABLES LABORATORY [facility] [address] [place] [address] * GASTROINTESTINAL PATHOGEN PANEL PCR (08/21/2023 9:27 AM EST) Campylobacter group by PCR Negative Negative 08/21/2023 8:16 PM EST LABORATORY GM Salmonella species by PCR Negative Negative 08/21/2023 8:16 PM EST LABORATORY [facility] Shigella species by PCR Negative Negative 08/21/2023 8:16 PM EST LABORATORY [facility] Vibrio group by PCR Negative Negative 08/21/2023 8:16 PM EST LABORATORY [facility] Yersinia enterocolitica by PCR Negative Negative 08/21/2023 8:16 PM EST LABORATORY [facility] Shiga Toxin 1 Gene by PCR Negative Negative 08/21/2023 8:16 PM EST LABORATORY [facility] Shiga Toxin 2 Gene by PCR Negative Negative 08/21/2023 8:16 PM EST LABORATORY [facility] Norovirus by PCR Negative Negative 08/21/19 8:16 PM EST LABORATORY [facility] Rotavirus by PCR Negative Negative 08/21/19 8:16 PM EST LABORATORY [facility] Stool Stool specimen / Unknown Non-blood Collection / Unknown 08/21/2023 9:27 AM EST 08/21/2023 9:32 AM EST Magali Cerrato MD LAB MICRO - GENERAL ORDERABLES LABORATORY [facility] [address] [place] [address] * CLOSTRIDIUM DIFFICILE, PCR (08/21/2023 9:27 AM EST) Stool Consistency Liquid 08/21/2023 10:[address] [facility] Clostridium difficile Result Negative. No C. difficile toxin B gene DNA detected by PCR (Amplified Probe). Negative 08/21/2023 10:[address] [facility] Stool Stool specimen / Unknown Non-blood Collection / Unknown 08/21/2023 9:27 AM EST 08/21/2023 9:32 AM EST Magali Cerrato MD LAB MICRO - GENERAL ORDERABLES LABORATORY [address] [address] * (ABNORMAL) CBC (08/21/2023 3:32 AM EST) WBC 17.27(H) 4.00 - 10.80 K/uL 08/21/2023 4:[address] [facility] RBC 4.10 3.85 - 5.15 M/uL 08/21/2023 4:[address] [facility] HGB 11.3(L) 12.0 - 15.3 g/dL 08/21/2023 4:11 AM EST LABORATORY GL HCT 33.7(L) 36.0 - 45.2 % 08/21/2023 4:11 AM EST LABORATORY GL MCV 82.2 81.5 - 97.5 fL 08/21/2023 4:11 AM EST LABORATORY GL MCH 27.6 27.0 - 34.0 pg 08/21/2023 4:[address] [facility] MCHC 33.5 32.0 - 36.0 g/dL 08/21/2023 4:[address] [facility] RDW 16.3 11.5 - 15.5 % 08/21/2023 4:[address] [facility] PLT 1,101(HH) 140 - 400 K/uL 08/21/2023 4:[address] [facility] MPV 8.5 6.6 - 11.1 fL 08/21/2023 4:[address] [facility] nRBCs 0 <=0 /100 WBCs 08/21/2023 4:[address] [facility] Blood Venous blood specimen / Unknown Venipuncture / Unknown 08/21/2023 3:32 AM EST 08/21/2023 3:35 AM EST Disha Zhao DO LAB BLOOD ORDERABLES Performing Organization Address City/[facility] Co de Phone Number LABORATORY [address] [address] * FOLIC ACID (08/21/2023 3:31 AM EST) Folic Acid 6.8 >4.5 ng/mL 08/21/2023 7:16 PM EST LABORATORY [facility] Blood Venous blood specimen / Unknown Venipuncture / Unknown 08/21/2023 3:31 AM EST 08/21/2023 3:35 AM EST Magali Cerrato MD LAB BLOOD ORDERABLES LABORATORY [facility] [address] [place] [address] * (ABNORMAL) BASIC METABOLIC PANEL (08/21/2023 3:31 AM EST) BUN 4(L) 6 - 20 mg/dL 08/21/2023 3:56 AM EST LABORATORY [facility] Creatinine 0.4(L) 0.5 - 1.0 mg/dL 08/21/2023 3:56 AM EST LABORATORY [facility] Estimated Glomerular Filtration Rate >90 >=60 mL/min 08/21/2023 3:56 AM EST LABORATORY [facility] Comment:eGFR is calculated b ased on the CKD-EPI 2020 equation Sodium 138 135 - 146 mmol/L 08/21/2023 3:56 AM EST LABORATORY [facility] Potassium 3.9 3.5 - 5.1 mmol/L 08/21/2023 3:56 AM EST LABORATORY [facility] Chloride 110(H) 98 - 107 mmol/L 08/21/2023 3:56 AM EST LABORATORY [facility] CO2 17(L) 22 - 32 mmol/L 08/21/2023 3:56 AM EST LABORATORY [facility] Anion Gap 11 7 - 15 mmol/L 08/21/2023 3:56 AM EST LABORATORY [facility] Glucose 101 70 - 120 mg/dL 08/21/2023 3:56 AM EST LABORATORY [facility] Calcium 8.0(L) 8.4 - 10.2 mg/dL 08/21/2023 3:56 AM EST LABORATORY [facility] Blood Venous blood specimen / Unknown Venipuncture / Unknown 08/21/2023 3:31 AM EST 08/21/2023 3:35 AM EST Disha Zhao DO LAB BLOOD ORDERABLES LABORATORY [facility] [address] [place] [address] * LACTATE (08/21/2023 3:31 AM EST) Lactate 1.7 0.4 - 2.0 mmol/L 08/21/2023 3:57 AM EST LABORATORY [facility] Blood Venous blood specimen / Unknown Venipuncture / Unknown 08/21/2023 3:31 AM EST 08/21/2023 3:35 AM EST Lisseth CASTANEDA LAB BLOOD ORDERABLES LABORATORY [facility] [address] [place] [address] * (ABNORMAL) BLOOD GAS, VENOUS (08/21/2023 3:31 AM EST) Temperature 37.0 C 08/21/2023 3:41 AM EST LABORATORY [facility] pH, Venous 7.410 7.320 - 7.430 units 08/21/2023 3:41 AM EST LABORATORY [facility] pCO2, Venous 29.6(L) 40.0 - 60.0 mmHg 08/21/2023 3:41 AM EST LABORATORY [facility] pO2, Venous 61.3(H) 25.0 - 50.0 mmHg 08/21/2023 3:41 AM EST LABORATORY [facility] Base Excess, Venous -4.8(L) -2.0 - 2.0 mmol/L 08/21/2023 3:41 AM EST LABORATORY [facility] Hemoglobin, Whole Blood 11.4(L) 12.0 - 15.3 g/dL 08/21/2023 3:41 AM EST LABORATORY [facility] Oxyhemoglobin, Venous 88.4(H) 40.0 - 85.0 % total Hgb 08/21/2023 3:41 AM EST LABORATORY [facility] Carboxyhemoglobi n, Whole Blood 1.0 <=1.5 % total Hgb 08/21/2023 3:41 AM EST LABORATORY [facility] Comment:Smokers: 0-9.0 % Methemoglobin, Whole Blood 0.9 <=1.5 % total Hgb 08/21/2023 3:41 AM EST LABORATORY [facility] Reduced Hemoglobin, Venous 9.7 % total Hgb 08/21/2023 3:41 AM EST LABORATORY [facility] O2 Content, Venous 14.2 7.0 - 18.0 %vol 08/21/2023 3:41 AM EST LABORATORY [facility] Bicarbonate, Whole Blood 18.4(L) 23.0 - 31.0 mmol/L 08/21/2023 3:[address] [facility] Blood Venous blood specimen / Unknown Venipuncture / Unknown 08/21/2023 3:31 AM EST 08/21/2023 3:35 AM EST [facility] LAB BLOOD ORDERABLES Performing Organization Address [facility] de Phone Number LABORATORY [address] [address] * (ABNORMAL) D-DIMER (08/21/2023 3:31 AM EST) D-Dimer 0.80(H) <0.50 ug/mL FEU 08/21/2023 4:[address] [facility] Blood Venous blood specimen / Unknown Venipuncture / Unknown 08/21/2023 3:31 AM EST 08/21/2023 3:35 AM EST Narrative LABORATORY [facility] - 08/21/2023 4:06 AM EST Rheumatoid factor at a level above 50 IU/mL may lead to an overestimation of the D-dimer level. A normal D-dimer result (<0.50 ug/mL FEU) has a negative predictive value of approximately 95% for the exclusion of acute pulmonary embolism (PE) or deep vein thrombosis when there is low or moderate pretest PE probability. Increased D-dimer values are abnormal but do not indicate a specific disease state and the D-dimer increase does not definitively correlate with clinical severity of disease. [facility] LAB BLOOD ORDERABLES Performing Organization Address [facility] de Phone Number LABORATORY [address] [address] * URINE PROTEIN ELECTROPHORESIS REFLEX PROFILE, RANDOM URINE (08/20/2023 6:48 PM EST) Normal/Abnormal Normal Normal 4:38 PM EST LABORATORY [facility] Protein, Random Urine <4 mg/dL 08/21/2023 4:38 PM EST LABORATORY [facility] Electrophoresis Intepretation Protein concentrations are too low to fractionate. Recommend 24 hour urine collection, if clinically indicated. 08/21/2023 4:38 PM EST LABORATORY [facility] Albumin, Urine 08/21/2023 4:38 PM EST LABORATORY [facility] Globulins, Urine 08/21/19 4:38 PM EST LABORATORY [facility] Urine Urine specimen obtained by clean catch procedure / Unknown Non-blood Collection / Unknown 08/20/2023 6:48 PM EST 08/20/2023 6:50 PM EST Magali Cerrato MD LAB URINE ORDERABLES Performing Organization Address City/[facility]/ZIP Co de Phone Number LABORATORY [facility] [address] [place] [address] * CELIAC DISEASE SEROLOGY (08/20/2023 3:16 PM EST) Celiac Disease Screen Interpretation No serological evidence of celiac disease. 08/21/2023 1:04 PM EST LABORATORY [facility] Tissue Transglutaminase IgA Antibody Value 0.9 <7 U/mL 08/21/2023 1:04 PM EST LABORATORY [facility] Tissue Transglutaminase IgA Antibody Interpretation Negative Negative 08/21/2023 1:04 PM EST LABORATORY [facility] IgA 315 70 - 400 mg/dL 08/21/2023 1:04 PM EST LABORATORY [facility] Blood Venous blood specimen / Unknown Venipuncture / Unknown 08/20/2023 3:16 PM EST 08/20/2023 3:20 PM EST Magali Cerrato MD LAB BLOOD ORDERABLES Performing Organization Address City/[facility]/ZIP Co de Phone Number LABORATORY [facility] [address] [place] [address] * (ABNORMAL) FOLIC ACID (08/20/2023 3:16 PM EST) Folic Acid 3.7(L) >4.5 ng/mL 08/20/2023 10:54 PM EST LABORATORY [facility] Blood Venous blood specimen / Unknown Venipuncture / Unknown 08/20/2023 3:16 PM EST 08/20/2023 3:20 PM EST Magali Cerrato MD LAB BLOOD ORDERABLES Performing Organization Address City/[facility]/ZIP Co de Phone Number LABORATORY [facility] [address] [place] [address] * VITAMIN B12 (08/20/2023 3:16 PM EST) Vitamin B12 540 232 - 1,245 pg/mL 08/20/2023 10:54 PM EST LABORATORY [facility] Blood Venous blood specimen / Unknown Venipuncture / Unknown 08/20/2023 3:16 PM EST 08/20/2023 3:20 PM EST Magali Cerrato MD LAB BLOOD ORDERABLES Performing Organization Address [facility] Co de Phone Number LABORATORY [facility] [address] [place] [address] * FERRITIN (08/20/2023 3:16 PM EST) Ferritin 45 13 - 150 ng/mL 08/20/2023 10:12 PM EST LABORATORY [facility] Comment:Postmenopausal women have higher ferritin levels than pre-menopausal women. The above reference interval is based on pre-menopausal women. Blood Venous blood specimen / Unknown Venipuncture / Unknown 08/20/2023 3:16 PM EST 08/20/2023 3:21 PM EST Magali Cerrato MD LAB BLOOD ORDERABLES Performing Organization Address [facility] Co de Phone Number LABORATORY [facility] [address] [place] [address] * IMMUNOGLOBULIN QUANTITATIVE (08/20/2023 3:16 PM EST) IgG 915 700 - 1,600 mg/dL 08/20/2023 10:15 PM EST LABORATORY [facility] IgA 315 70 - 400 mg/dL 08/20/2023 10:15 PM EST LABORATORY [facility] IgM 61 40 - 230 mg/dL 08/20/2023 10:15 PM EST LABORATORY [facility] Blood Venous blood specimen / Unknown Venipuncture / Unknown 08/20/2023 3:16 PM EST 08/20/2023 3:20 PM EST Magali Cerrato MD LAB BLOOD ORDERABLES Performing Organization Address [facility] de Phone Number LABORATORY [facility] [address] [place] [address] * (ABNORMAL) SERUM FREE LIGHT CHAINS (08/20/2023 3:16 PM EST) [facility] [place] Free Light Chains, Serum 31.58(H) 3.30 - 19.40 mg/L 08/21/2023 9:46 AM EST LABORATORY [facility] Lambda Free Light Chains, Serum 38.47(H) 5.71 - 26.30 mg/L 08/21/2023 9:46 AM EST LABORATORY [facility] [place] Lambda Free Light Chains Ratio 0.82 0.26 - 1.65 08/21/2023 9:46 AM EST LABORATORY [facility] Blood Venous blood specimen / Unknown Venipuncture / Unknown 08/20/2023 3:16 PM EST 08/20/2023 3:20 PM EST Magali Cerrato MD LAB BLOOD ORDERABLES Performing Organization Address [facility] Co de Phone Number LABORATORY [facility] [address] [place] [address] * (ABNORMAL) SERUM PROTEIN ELECTROPHORESIS REFLEX PROFILE (08/20/2023 3:16 PM EST) [facility] Normal/Abnormal Normal Normal 4:38 PM EST LABORATORY [facility] Protein 5.6(L) 6.0 - 8.3 g/dL 08/21/2023 4:38 PM EST LABORATORY [facility] Albumin 2.36(L) 3.30 - 4.40 g/dL 08/21/2023 4:38 PM EST LABORATORY [facility] Alpha-1 Globulin 0.32(H) 0.10 - 0.30 g/dL 08/21/2023 4:38 PM EST LABORATORY [facility] Alpha-2 Globulin 1.11(H) 0.60 - 1.00 g/dL 08/21/2023 4:38 PM EST LABORATORY [facility] Beta-Globulin 0.90 0.80 - 1.30 g/dL 08/21/2023 4:38 PM EST LABORATORY [facility] Gamma-Globulin 0.91 0.70 - 1.70 g/dL 08/21/2023 4:38 PM EST LABORATORY [facility] Electrophoresis Interpretation No paraprotein detected. 08/21/2023 4:38 PM EST LABORATORY [facility] Blood Venous blood specimen / Unknown Venipuncture / Unknown 08/20/2023 3:16 PM EST 08/20/2023 3:20 PM EST Magali Cerrato MD LAB BLOOD ORDERABLES LABORATORY [facility] [address] [place] [address] * (ABNORMAL) BASIC METABOLIC PANEL (08/20/2023 6:01 AM EST) BUN 4(L) 6 - 20 mg/dL 08/20/2023 6:48 AM EST LABORATORY [facility] Creatinine 0.5 0.5 - 1.0 mg/dL 08/20/2023 6:48 AM EST LABORATORY [facility] Estimated Glomerular Filtration Rate >90 >=60 mL/min 08/20/2023 6:48 AM EST LABORATORY [facility] Comment:eGFR is calculated b ased on the CKD-EPI 2020 equation Sodium 141 135 - 146 mmol/L 08/20/2023 6:48 AM EST LABORATORY [facility] Potassium 4.1 3.5 - 5.1 mmol/L 08/20/2023 6:48 AM EST LABORATORY [facility] Chloride 112(H) 98 - 107 mmol/L 08/20/2023 6:48 AM EST LABORATORY [facility] CO2 20(L) 22 - 32 mmol/L 08/20/2023 6:48 AM EST LABORATORY [facility] Anion Gap 9 7 - 15 mmol/L 08/20/2023 6:48 AM EST LABORATORY [facility] Glucose 86 70 - 120 mg/dL 08/20/2023 6:48 AM EST LABORATORY [facility] Calcium 8.3(L) 8.4 - 10.2 mg/dL 08/20/2023 6:48 AM EST LABORATORY [facility] Blood Venous blood specimen / Unknown Venipuncture / Unknown 08/20/2023 6:01 AM EST 08/20/2023 6:22 AM EST Disha Mason Hochhauser DO LAB BLOOD ORDERABLES LABORATORY [facility] [address], [place] [id number] * (ABNORMAL) CBC (08/20/2023 6:01 AM EST) WBC 16.32(H) 4.00 - 10.80 K/uL 08/20/2023 9:00 AM EST LABORATORY GL RBC 4.18 3.85 - 5.15 M/uL 08/20/2023 9:00 AM EST LABORATORY GL HGB 11.9(L) 12.0 - 15.3 g/dL 08/20/2023 9:00 AM EST LABORATORY GL HCT 34.6(L) 36.0 - 45.2 % 08/20/2023 9:00 AM EST LABORATORY GL MCV 82.8 81.5 - 97.5 fL 08/20/2023 9:00 AM EST LABORATORY GL MCH 28.5 27.0 - 34.0 pg 08/20/2023 9:00 AM EST LABORATORY GL MCHC 34.4 32.0 - 36.0 g/dL 08/20/2023 9:00 AM EST LABORATORY GL RDW 16.8 11.5 - 15.5 % 08/20/2023 9:00 AM EST LABORATORY GL PLT 1,147(HH) 140 - 400 K/uL 08/20/2023 9:00 AM EST LABORATORY GL MPV 8.8 6.6 - 11.1 fL 08/20/2023 9:00 AM EST LABORATORY GL nRBCs 0 <=0 /100 WBCs 08/20/2023 9:00 AM EST LABORATORY GL Blood Venous blood specimen / Unknown Venipuncture / Unknown 08/20/2023 6:01 AM EST 08/20/2023 6:22 AM EST [facility] LAB BLOOD ORDERABLES LABORATORY [address] [id number] * VANCOMYCIN RANDOM (08/20/2023 6:01 AM EST) Vancomycin Random 12.3 10.0 - 40.0 ug/mL 08/20/2023 6:48 AM EST LABORATORY [facility] Blood Venous blood specimen / Unknown Venipuncture / Unknown 08/20/2023 6:01 AM EST 08/20/2023 6:22 AM EST Magali Cerrato MD LAB BLOOD ORDERABLES LABORATORY [facility] [address] [place] [address] * (ABNORMAL) BASIC METABOLIC PANEL (08/19/2023 8:40 PM EST) BUN 5(L) 6 - 20 mg/dL 08/19/2023 9:09 PM EST LABORATORY [facility] Creatinine 0.5 0.5 - 1.0 mg/dL 08/19/2023 9:09 PM EST LABORATORY [facility] Estimated Glomerular Filtration Rate >90 >=60 mL/min 08/19/2023 9:09 PM EST LABORATORY [facility] Comment:eGFR is calculated b ased on the CKD-EPI 2020 equation Sodium 140 135 - 146 mmol/L 08/19/2023 9:09 PM EST LABORATORY [facility] Potassium 4.1 3.5 - 5.1 mmol/L 08/19/2023 9:09 PM EST LABORATORY [facility] Chloride 114(H) 98 - 107 mmol/L 08/19/2023 9:09 PM EST LABORATORY [facility] CO2 18(L) 22 - 32 mmol/L 08/19/2023 9:09 PM EST LABORATORY [facility] Anion Gap 8 7 - 15 mmol/L 08/19/2023 9:09 PM EST LABORATORY [facility] Glucose 107 70 - 120 mg/dL 08/19/2023 9:09 PM EST LABORATORY [facility] Calcium 8.3(L) 8.4 - 10.2 mg/dL 08/19/2023 9:09 PM EST LABORATORY [facility] Blood Venous blood specimen / Unknown Venipuncture / Unknown 08/19/2023 8:40 PM EST 08/19/2023 8:48 PM EST Chuck Hernandez MD LAB BLOOD ORDERABL ES LABORATORY [address] [address] * CT ABD/PELVIS W IV CONTRAST - WO ORAL CONTRAST (08/19/2023 9:39 AM EST) Anatomical Region Laterality Modality Body, Abdomen, Pelvis Computed T omography 08/19/2023 9:25 AM EST Impressions 08/19/2023 10:47 AM EST IMPRESSION: No acute thoracic abnormality identified. PROCEDURE INFORMATION: Exam: CT Abdomen And Pelvis With Contrast Exam date and time: 08/19/2023 9:25 AM Age: 48 years old Clinical indication: Abdominal pain; Chest pressure; Additional info: Sepsis with unclear source TECHNIQUE: Imaging protocol: Computed tomography of the abdomen and pelvis with contrast. 3D rendering (Not supervised by radiologist): MIP and/or 3D reconstructed images were created by the technologist. Radiation optimization: All CT scans at this facility use at least one of these dose optimization techniques: automated exposure control; mA and/or kV adjustment per patient size (includes targeted exams where dose is matched to clinical indication); or iterative reconstruction. Contrast material: OPTIRAY; Contrast volume: 320 ml; Contrast route: INTRAVENOUS (IV); COMPARISON: CT PET^[employer] Wholebody (Adult) 01/20/2023 2:48 PM COMPARISON MORE: CT CHEST/ABDOMEN/PELVIS WITH IV CONTRAST WITH ORAL CONTRAST 12/19/2022 6:17 PM FINDINGS: Liver: Area of hypoattenuation along the anterior margin of the liver adjacent to the falciform ligament consistent with focal fatty infiltration. The liver is normal in size and contour. Gallbladder and bile ducts: The gallbladder appears unremarkable. No intra- or extra-hepatic biliary ductal dilatation. Pancreas: The pancreas appears normal. Spleen: The spleen appears normal. Adrenal glands: The adrenals appear normal. Kidneys and ureters: The kidneys enhance symmetrically and empty into non-dilated ureters. Stomach and bowel: The stomach appears unremarkable. Fluid-filled small and large bowel. Correlate with any history of diarrheal illness. No significant bowel wall thickening. Appendix: No signs of appendicitis. Intraperitoneal space: Trace mesenteric fat stranding similar to prior exam on 12/19/2022. Vasculature: Proximal left ovarian vein measures up to 14 mm in diameter prominent periuterine veins measuring up to 10 mm in diameter. Lymph nodes: A few mildly prominent but not significantly enlarged mesenteric lymph nodes, similar to prior exam on 12/19/2022. Solitary enlarged low-density lymph node measuring up to 1.5 cm in the short axis in the mesentery (axial series 2, image 176), similar to prior exam. Urinary bladder: The bladder is distended and demonstrates no focal contour abnormality. Reproductive: Unremarkable as visualized. Bones/joints: Lumbarized S1 vertebral body. The last fully formed intervertebral disc space is S1-2. Bilateral pars defects at L5 with trace grade 1 anterolisthesis of L5 on S1 by approximately 3 mm. Subtle 9 mm lytic lesion at L1 again noted. 5 mm lytic lesion in the L4 vertebral body again noted. Soft tissues: Unremarkable. IMPRESSION: 1. Fluid-filled small and large bowel. Correlate with any history of diarrheal illness. No significant bowel wall thickening. 2. Mild mesenteric lymphadenopathy and mesenteric fat stranding overall similar to prior exam on 12/19/2022. Findings could be related to mild enteritis. 3. Findings concerning for possible pelvic venous insufficiency, correlate with any history of chronic pelvic pain. THIS DOCUMENT HAS BEEN ELECTRONICALLY SIGNED BY JOLIE MARY MD Narrative 08/19/2023 10:47 AM EST PROCEDURE INFORMATION: Exam: CT Chest With Contrast; Diagnostic Exam date and time: 08/19/2023 9:25 AM Age: 48 years old Clinical indication: Abdominal pain; Chest pressure; Additional info: Sepsis with unclear source TECHNIQUE: Imaging protocol: Diagnostic computed tomography of the chest with contrast. 3D rendering (Not supervised by radiologist): MIP and/or 3D reconstructed images were created by the technologist. Radiation optimization: All CT scans at this facility use at least one of these dose optimization techniques: automated exposure control; mA and/or kV adjustment per patient size (includes targeted exams where dose is matched to clinical indication); or iterative reconstruction. Contrast material: OPTIRAY; Contrast volume: 320 ml; Contrast route: INTRAVENOUS (IV); COMPARISON: 1. CT PET^[employer] Wholebody (Adult) 01/20/2023 2:48 PM [address] PT PET CT WHOLE BODY 01/20/2023 1:45 PM FINDINGS: Lungs: No significant airspace consolidation concerning for pneumonia. Minimal dependent bibasilar atelectasis. Pleural spaces: Unremarkable. No pneumothorax. No pleural effusion. Heart: The heart is within normal limits for size. There is no evidence of pericardial abnormality. Coronary arteries: Trace coronary artery calcifications noted. Lymph nodes: Unremarkable. No enlarged lymph nodes. Vasculature: Unremarkable. Bones/joints: Stable 1.7 cm round lytic lesion noted in the T9 vertebral body, again noted. Soft tissues: Unremarkable. Procedure Note Jolei Mary MD - 08/19/2023 PROCEDURE INFORMATION: Exam: CT Chest With Contrast; Diagnostic Exam date and time: 08/19/2023 9:25 AM Age: 48 years old Clinical indication: Abdominal pain; Chest pressure; Additional info:Sepsis with unclear source TECHNIQUE: Imaging protocol: Diagnostic computed tomography of the chest withcontrast. 3D rendering (Not supervised by radiologist): MIP and/or 3D reconstructed images were created by the technologist. Radiation optimization: All CT scans at this facility use at least one ofthese dose optimization techniques: automated exposure control; mA and/or kV adjustment per patient size (includes targeted exams where dose is matchedto clinical indication); or iterative reconstruction. Contrast material: OPTIRAY; Contrast volume: 320 ml; Contrast route: INTRAVENOUS (IV); COMPARISON: 1. CT PET^[facility] Wholebody (Adult) 01/20/2023 2:48 PM 2[address] PT PET CT WHOLE BODY 01/20/2023 1:45 PM FINDINGS: Lungs: No significant airspace consolidation concerning for pneumonia.Minimal dependent bibasilar atelectasis. Pleural spaces: Unremarkable. No pneumothorax. No pleural effusion. Heart: The heart is within normal limits for size. There is no evidence of pericardial abnormality. Coronary arteries: Trace coronary artery calcifications noted. Lymph nodes: Unremarkable. No enlarged lymph nodes. Vasculature: Unremarkable. Bones/joints: Stable 1.7 cm round lytic lesion noted in the T9 vertebralbody, again noted. Soft tissues: Unremarkable. IMPRESSION IMPRESSION: No acute thoracic abnormality identified. PROCEDURE INFORMATION: Exam: CT Abdomen And Pelvis With Contrast Exam date and time: 08/19/2023 9:25 AM Age: 48 years old Clinical indication: Abdominal pain; Chest pressure; Additional info:Sepsis with unclear source TECHNIQUE: Imaging protocol: Computed tomography of the abdomen and pelvis withcontrast. 3D rendering (Not supervised by radiologist): MIP and/or 3D reconstructed images were created by the technologist. Radiation optimization: All CT scans at this facility use at least one ofthese dose optimization techniques: automated exposure control; mA and/or kV adjustment per patient size (includes targeted exams where dose is matchedto clinical indication); or iterative reconstruction. Contrast material: OPTIRAY; Contrast volume: 320 ml; Contrast route: INTRAVENOUS (IV); COMPARISON: CT PET^[employer] Wholebody (Adult) 01/20/2023 2:48 PM COMPARISON MORE: CT CHEST/ABDOMEN/PELVIS WITH IV CONTRAST WITH ORALCONTRAST 12/19/2022 6:17 PM FINDINGS: Liver: Area of hypoattenuation along the anterior margin of the liveradjacent to the falciform ligament consistent with focal fatty infiltration. Theliver is normal in size and contour. Gallbladder and bile ducts: The gallbladder appears unremarkable. Nointra- or extra-hepatic biliary ductal dilatation. Pancreas: The pancreas appears normal. Spleen: The spleen appears normal. Adrenal glands: The adrenals appear normal. Kidneys and ureters: The kidneys enhance symmetrically and empty into non-dilated ureters. Stomach and bowel: The stomach appears unremarkable. Fluid-filled smalland large bowel. Correlate with any history of diarrheal illness. Nosignificant bowel wall thickening. Appendix: No signs of appendicitis. Intraperitoneal space: Trace mesenteric fat stranding similar to priorexam on 12/19/2022. Vasculature: Proximal left ovarian vein measures up to 14 mm in diameter prominent periuterine veins measuring up to 10 mm in diameter. Lymph nodes: A few mildly prominent but not significantly enlargedmesenteric lymph nodes, similar to prior exam on 12/19/2022. Solitary enlarged low-density lymph node measuring up to 1.5 cm in the short axis in the mesentery (axial series 2, image 176), similar to prior exam. Urinary bladder: The bladder is distended and demonstrates no focalcontour abnormality. Reproductive: Unremarkable as visualized. Bones/joints: Lumbarized S1 vertebral body. The last fully formed intervertebral disc space is S1-2. Bilateral pars defects at L5 with trace grade 1 anterolisthesis of L5 on S1 by approximately 3 mm. Subtle 9 mmlytic lesion at L1 again noted. 5 mm lytic lesion in the L4 vertebral body again noted. Soft tissues: Unremarkable. IMPRESSION: 1. Fluid-filled small and large bowel. Correlate with any history of diarrheal illness. No significant bowel wall thickening. 2. Mild mesenteric lymphadenopathy and mesenteric fat stranding overall similar to prior exam on 12/19/2022. Findings could be related to mild enteritis. 3. Findings concerning for possible pelvic venous insufficiency,correlate with any history of chronic pelvic pain. THIS DOCUMENT HAS BEEN ELECTRONICALLY SIGNED BY JOLIE MARY MD Marquis Jovel MD RAD CT * CT CHEST W CONTRAST (08/19/2023 9:39 AM EST) Anatomical Region Laterality Modality Chest, Body, Cardio Computed Rusty ography 08/19/2023 9:25 AM EST Impressions 08/19/2023 10:47 AM EST IMPRESSION: No acute thoracic abnormality identified. PROCEDURE INFORMATION: Exam: CT Abdomen And Pelvis With Contrast Exam date and time: 08/19/2023 9:25 AM Age: 48 years old Clinical indication: Abdominal pain; Chest pressure; Additional info: Sepsis with unclear source TECHNIQUE: Imaging protocol: Computed tomography of the abdomen and pelvis with contrast. 3D rendering (Not supervised by radiologist): MIP and/or 3D reconstructed images were created by the technologist. Radiation optimization: All CT scans at this facility use at least one of these dose optimization techniques: automated exposure control; mA and/or kV adjustment per patient size (includes targeted exams where dose is matched to clinical indication); or iterative reconstruction. Contrast material: OPTIRAY; Contrast volume: 320 ml; Contrast route: INTRAVENOUS (IV); COMPARISON: CT PET^[employer] Wholebody (Adult) 01/20/2023 2:48 PM COMPARISON MORE: CT CHEST/ABDOMEN/PELVIS WITH IV CONTRAST WITH ORAL CONTRAST 12/19/2022 6:17 PM FINDINGS: Liver: Area of hypoattenuation along the anterior margin of the liver adjacent to the falciform ligament consistent with focal fatty infiltration. The liver is normal in size and contour. Gallbladder and bile ducts: The gallbladder appears unremarkable. No intra- or extra-hepatic biliary ductal dilatation. Pancreas: The pancreas appears normal. Spleen: The spleen appears normal. Adrenal glands: The adrenals appear normal. Kidneys and ureters: The kidneys enhance symmetrically and empty into non-dilated ureters. Stomach and bowel: The stomach appears unremarkable. Fluid-filled small and large bowel. Correlate with any history of diarrheal illness. No significant bowel wall thickening. Appendix: No signs of appendicitis. Intraperitoneal space: Trace mesenteric fat stranding similar to prior exam on 12/19/2022. Vasculature: Proximal left ovarian vein measures up to 14 mm in diameter prominent periuterine veins measuring up to 10 mm in diameter. Lymph nodes: A few mildly prominent but not significantly enlarged mesenteric lymph nodes, similar to prior exam on 12/19/2022. Solitary enlarged low-density lymph node measuring up to 1.5 cm in the short axis in the mesentery (axial series 2, image 176), similar to prior exam. Urinary bladder: The bladder is distended and demonstrates no focal contour abnormality. Reproductive: Unremarkable as visualized. Bones/joints: Lumbarized S1 vertebral body. The last fully formed intervertebral disc space is S1-2. Bilateral pars defects at L5 with trace grade 1 anterolisthesis of L5 on S1 by approximately 3 mm. Subtle 9 mm lytic lesion at L1 again noted. 5 mm lytic lesion in the L4 vertebral body again noted. Soft tissues: Unremarkable. IMPRESSION: 1. Fluid-filled small and large bowel. Correlate with any history of diarrheal illness. No significant bowel wall thickening. 2. Mild mesenteric lymphadenopathy and mesenteric fat stranding overall similar to prior exam on 12/19/2022. Findings could be related to mild enteritis. 3. Findings concerning for possible pelvic venous insufficiency, correlate with any history of chronic pelvic pain. THIS DOCUMENT HAS BEEN ELECTRONICALLY SIGNED BY JOLIE MARY MD Narrative 08/19/2023 10:47 AM EST PROCEDURE INFORMATION: Exam: CT Chest With Contrast; Diagnostic Exam date and time: 08/19/2023 9:25 AM Age: 48 years old Clinical indication: Abdominal pain; Chest pressure; Additional info: Sepsis with unclear source TECHNIQUE: Imaging protocol: Diagnostic computed tomography of the chest with contrast. 3D rendering (Not supervised by radiologist): MIP and/or 3D reconstructed images were created by the technologist. Radiation optimization: All CT scans at this facility use at least one of these dose optimization techniques: automated exposure control; mA and/or kV adjustment per patient size (includes targeted exams where dose is matched to clinical indication); or iterative reconstruction. Contrast material: OPTIRAY; Contrast volume: 320 ml; Contrast route: INTRAVENOUS (IV); COMPARISON: 1. CT PET^[facility] Wholebody (Adult) 01/20/2023 2:48 PM 2[address] PT PET CT WHOLE BODY 01/20/2023 1:45 PM FINDINGS: Lungs: No significant airspace consolidation concerning for pneumonia. Minimal dependent bibasilar atelectasis. Pleural spaces: Unremarkable. No pneumothorax. No pleural effusion. Heart: The heart is within normal limits for size. There is no evidence of pericardial abnormality. Coronary arteries: Trace coronary artery calcifications noted. Lymph nodes: Unremarkable. No enlarged lymph nodes. Vasculature: Unremarkable. Bones/joints: Stable 1.7 cm round lytic lesion noted in the T9 vertebral body, again noted. Soft tissues: Unremarkable. Procedure Note Jolie Mary MD - 08/19/2023 PROCEDURE INFORMATION: Exam: CT Chest With Contrast; Diagnostic Exam date and time: 08/19/2023 9:25 AM Age: 48 years old Clinical indication: Abdominal pain; Chest pressure; Additional info:Sepsis with unclear source TECHNIQUE: Imaging protocol: Diagnostic computed tomography of the chest withcontrast. 3D rendering (Not supervised by radiologist): MIP and/or 3D reconstructed images were created by the technologist. Radiation optimization: All CT scans at this facility use at least one ofthese dose optimization techniques: automated exposure control; mA and/or kV adjustment per patient size (includes targeted exams where dose is matchedto clinical indication); or iterative reconstruction. Contrast material: OPTIRAY; Contrast volume: 320 ml; Contrast route: INTRAVENOUS (IV); COMPARISON: 1. CT PET^[facility] Wholebody (Adult) 01/20/2023 2:48 PM 2[address] PT PET CT WHOLE BODY 01/20/2023 1:45 PM FINDINGS: Lungs: No significant airspace consolidation concerning for pneumonia.Minimal dependent bibasilar atelectasis. Pleural spaces: Unremarkable. No pneumothorax. No pleural effusion. Heart: The heart is within normal limits for size. There is no evidence of pericardial abnormality. Coronary arteries: Trace coronary artery calcifications noted. Lymph nodes: Unremarkable. No enlarged lymph nodes. Vasculature: Unremarkable. Bones/joints: Stable 1.7 cm round lytic lesion noted in the T9 vertebralbody, again noted. Soft tissues: Unremarkable. IMPRESSION IMPRESSION: No acute thoracic abnormality identified. PROCEDURE INFORMATION: Exam: CT Abdomen And Pelvis With Contrast Exam date and time: 08/19/2023 9:25 AM Age: 48 years old Clinical indication: Abdominal pain; Chest pressure; Additional info:Sepsis with unclear source TECHNIQUE: Imaging protocol: Computed tomography of the abdomen and pelvis withcontrast. 3D rendering (Not supervised by radiologist): MIP and/or 3D reconstructed images were created by the technologist. Radiation optimization: All CT scans at this facility use at least one ofthese dose optimization techniques: automated exposure control; mA and/or kV adjustment per patient size (includes targeted exams where dose is matchedto clinical indication); or iterative reconstruction. Contrast material: OPTIRAY; Contrast volume: 320 ml; Contrast route: INTRAVENOUS (IV); COMPARISON: CT PET^[employer] Wholebody (Adult) 01/20/2023 2:48 PM COMPARISON MORE: CT CHEST/ABDOMEN/PELVIS WITH IV CONTRAST WITH ORALCONTRAST 12/19/2022 6:17 PM FINDINGS: Liver: Area of hypoattenuation along the anterior margin of the liveradjacent to the falciform ligament consistent with focal fatty infiltration. Theliver is normal in size and contour. Gallbladder and bile ducts: The gallbladder appears unremarkable. Nointra- or extra-hepatic biliary ductal dilatation. Pancreas: The pancreas appears normal. Spleen: The spleen appears normal. Adrenal glands: The adrenals appear normal. Kidneys and ureters: The kidneys enhance symmetrically and empty into non-dilated ureters. Stomach and bowel: The stomach appears unremarkable. Fluid-filled smalland large bowel. Correlate with any history of diarrheal illness. Nosignificant bowel wall thickening. Appendix: No signs of appendicitis. Intraperitoneal space: Trace mesenteric fat stranding similar to priorexam on 12/19/2022. Vasculature: Proximal left ovarian vein measures up to 14 mm in diameter prominent periuterine veins measuring up to 10 mm in diameter. Lymph nodes: A few mildly prominent but not significantly enlargedmesenteric lymph nodes, similar to prior exam on 12/19/2022. Solitary enlarged low-density lymph node measuring up to 1.5 cm in the short axis in the mesentery (axial series 2, image 176), similar to prior exam. Urinary bladder: The bladder is distended and demonstrates no focalcontour abnormality. Reproductive: Unremarkable as visualized. Bones/joints: Lumbarized S1 vertebral body. The last fully formed intervertebral disc space is S1-2. Bilateral pars defects at L5 with trace grade 1 anterolisthesis of L5 on S1 by approximately 3 mm. Subtle 9 mmlytic lesion at L1 again noted. 5 mm lytic lesion in the L4 vertebral body again noted. Soft tissues: Unremarkable. IMPRESSION: 1. Fluid-filled small and large bowel. Correlate with any history of diarrheal illness. No significant bowel wall thickening. 2. Mild mesenteric lymphadenopathy and mesenteric fat stranding overall similar to prior exam on 12/19/2022. Findings could be related to mild enteritis. 3. Findings concerning for possible pelvic venous insufficiency,correlate with any history of chronic pelvic pain. THIS DOCUMENT HAS BEEN ELECTRONICALLY SIGNED BY JOLIE MARY MD Marquis Jovel MD RAD CT * MAGNESIUM (08/19/2023 6:18 AM EST) Pathologist [facility] Magnesium 2.2 1.5 - 2.6 mg/dL 08/19/2023 9:[address] [facility] Blood Venous blood specimen / Unknown Venipuncture / Unknown 08/19/2023 6:18 AM EST 08/19/2023 6:52 AM EST Marquis Jovel MD LAB BLOOD ORDERABLES Performing Organization Address City/State/[facility] Co de Phone Number LABORATORY [address] [address] * (ABNORMAL) CRP (INFLAMMATORY MARKER) (08/19/2023 6:18 AM EST) CRP (Inflammatory Marker) 31(H) <=5 mg/L 08/19/2023 9:[address] [facility] Blood Venous blood specimen / Unknown Venipuncture / Unknown 08/19/2023 6:18 AM EST 08/19/2023 6:52 AM EST Magali Cerrato MD LAB BLOOD ORDERABLES LABORATORY [facility] [address] [place] [address] * (ABNORMAL) ERYTHROCYTE SEDIMENTATION RATE (ESR) (08/19/2023 6:18 AM EST) ESR 23(H) <20 mm/hour 08/19/2023 12:17 PM EST LABORATORY [facility] Blood Venous blood specimen / Unknown Venipuncture / Unknown 08/19/2023 6:18 AM EST 08/19/2023 6:52 AM EST Magali Cerrato MD LAB BLOOD ORDERABLES Performing Organization Address [facility] Co de Phone Number LABORATORY [facility] [address] [place] [address] * PROCALCITONIN (08/19/2023 6:18 AM EST) Procalcitonin 0.06 <0.10 ng/mL 08/19/2023 9:[address] [facility] Blood Venous blood specimen / Unknown Venipuncture / Unknown 08/19/2023 6:18 AM EST 08/19/2023 6:52 AM EST Narrative LABORATORY [facility] - 08/19/2023 9:19 AM EST Less than 0.5 ng/mL: Low risk for progression to sepsis. Review patients condition for localized infections. 0.5 to 2.0 ng/mL: Intermediate risk for progresion to sepsis. Review underlying conditions. Recommend repeat PCT after 6 hours has elapsed. Greater than 2.0 ng/mL: high risk for progression to sepsis unless other causes are known. Magali Cerrato MD LAB BLOOD ORDERABLES Performing Organization Address City/[facility]/ZIP Co de Phone Number LABORATORY [address] [address] * TROPONIN T, HIGH SENSITIVITY (08/19/2023 6:18 AM EST) Troponin T, High Sensitivity 8 <=14 ng/L 08/19/2023 7:[address] [facility] Blood Venous blood specimen / Unknown Venipuncture / Unknown 08/19/2023 6:18 AM EST 08/19/2023 6:52 AM EST Chuck Hernandez MD LAB BLOOD ORDERABL ES Performing Organization Address [facility]/ZIP Co de Phone Number LABORATORY [address] [address] * PT INR (08/19/2023 6:18 AM EST) Prothrombin Time 14.5 11.6 - 15.2 seconds 08/19/2023 7:[address] [facility] INR 1.1 0.8 - 1.2 08/19/2023 7:[address] [facility] Blood Venous blood specimen / Unknown Venipuncture / Unknown 08/19/2023 6:18 AM EST 08/19/2023 6:52 AM EST Narrative [facility] [facility] - 08/19/2023 7:31 AM EST Warfarin Therapy INR: 2.0-3.0 conventional anticoagulation INR: 2.5-3.5 high intensity anticoagulation Chuck Hernandez MD LAB BLOOD ORDERABL ES Performing Organization Address City/[facility]/ZIP Co de Phone Number LABORATORY [address] [address] * (ABNORMAL) CBC (08/19/2023 6:18 AM EST) WBC 14.97(H) 4.00 - 10.80 K/uL 08/19/2023 7:15 AM EST LABORATORY GL RBC 3.89 3.85 - 5.15 M/uL 08/19/2023 7:15 AM EST LABORATORY GL HGB 11.3(L) 12.0 - 15.3 g/dL 08/19/2023 7:15 AM EST LABORATORY GL HCT 32.1(L) 36.0 - 45.2 % 08/19/2023 7:15 AM EST LABORATORY GL MCV 82.5 81.5 - 97.5 fL 08/19/2023 7:15 AM EST LABORATORY GL[facility] MCH 29.0 27.0 - 34.0 pg 08/19/2023 7:15 AM EST LABORATORY GL MCHC 35.2 32.0 - 36.0 g/dL 08/19/2023 7:15 AM EST LABORATORY GL RDW 16.2 11.5 - 15.5 % 08/19/2023 7:15 AM EST LABORATORY GL PLT 1,089(HH) 140 - 400 K/uL 08/19/2023 7:15 AM EST LABORATORY [facility] Comment: Results rechecked. MPV 8.8 6.6 - 11.1 fL 08/19/2023 7:15 AM EST LABORATORY [facility] nRBCs 0 <=0 /100 WBCs 08/19/2023 7:15 AM EST LABORATORY GL Blood Venous blood specimen / Unknown Venipuncture / Unknown 08/19/2023 6:18 AM EST 08/19/2023 6:52 AM EST Chuck Hernandez MD LAB BLOOD ORDERABL ES LABORATORY GL [address] [place] [address] * (ABNORMAL) BASIC METABOLIC PANEL (08/19/2023 6:18 AM EST) BUN 5(L) 6 - 20 mg/dL 08/19/2023 7:30 AM EST LABORATORY [facility] Creatinine 0.4(L) 0.5 - 1.0 mg/dL 08/19/2023 7:30 AM EST LABORATORY [facility] Estimated Glomerular Filtration Rate >90 >=60 mL/min 08/19/2023 7:30 AM EST LABORATORY [facility] Comment:eGFR is calculated b ased on the CKD-EPI 2020 equation Sodium 141 135 - 146 mmol/L 08/19/2023 7:30 AM EST LABORATORY [facility] Potassium 3.1(L) 3.5 - 5.1 mmol/L 08/19/2023 7:30 AM EST LABORATORY [facility] Chloride 111(H) 98 - 107 mmol/L 08/19/2023 7:30 AM EST LABORATORY [facility] CO2 20(L) 22 - 32 mmol/L 08/19/2023 7:30 AM EST LABORATORY [facility] Anion Gap 10 7 - 15 mmol/L 08/19/2023 7:30 AM EST LABORATORY [facility] Glucose 94 70 - 120 mg/dL 08/19/2023 7:30 AM EST LABORATORY [facility] Calcium 8.1(L) 8.4 - 10.2 mg/dL 08/19/2023 7:30 AM EST LABORATORY [facility] Blood Venous blood specimen / Unknown Venipuncture / Unknown 08/19/2023 6:18 AM EST 08/19/2023 6:52 AM EST Chuck Hernandez MD LAB BLOOD ORDERABL ES Performing Organization Address [facility] Co de Phone Number LABORATORY [address] [address] * EKG (08/19/2023 4:23 AM EST) 08/19/2023 4:23 AM EST Narrative Procedure Note Sue Gutierrez MD - 08/19/2023 4:23 AM EST REASON FOR STUDY: pauses CONCLUSIONS: Normal sinus rhythm Normal ECG No previous ECGs available Ventricular Rate: 77 Atrial Rate: 77 DE Interval: 170 QRS Duration: 82 QT/QTc: 378/427 ms P-R-T [place]: 78 : 70 : 78 degrees Samuel Little DO EKG Performing Organization Address City/[facility]/ZIP Co de Phone Number [facility] * TROPONIN T, HIGH SENSITIVITY (08/19/2023 1:27 AM EST) Troponin T, High Sensitivity 6 <=14 ng/L 08/19/2023 1:48 AM EST LABORATORY [facility] Blood Venous blood specimen / Unknown Venipuncture / Unknown 08/19/2023 1:27 AM EST 08/19/2023 1:31 AM EST Chuck Hernandez MD LAB BLOOD ORDERABL ES Performing Organization Address City/[facility]/ZIP Co de Phone Number LABORATORY [address] [phone] * CULTURE, BLOOD (08/19/2023 1:27 AM EST) Pathologist [facility] Blood Culture Growth No growth 08/24/2023 2:[address] [facility] Blood Venous blood specimen / Unknown Venipuncture / Unknown 08/19/2023 1:27 AM EST 08/19/2023 1:31 AM EST Chuck Hernandez MD LAB MICRO - GENERA L ORDERABLES LABORATORY [address] [address] * CULTURE, BLOOD (08/19/2023 1:22 AM EST) [facility] Blood Culture Growth No growth 08/24/2023 2:[address] [facility] Blood Venous blood specimen / Unknown Venipuncture / Unknown 08/19/2023 1:22 AM EST 08/19/2023 1:31 AM EST Chuck Hernandez MD LAB MICRO - GENERA L ORDERABLES Performing Organization Address City/[facility]/ZIP Co de Phone Number LABORATORY [address] [address] * CULTURE, URINE, QUANTITATIVE (08/18/2023 11:54 PM EST) [facility] Culture Growth No significant growth 08/20/2023 7:34 AM EST LABORATORY [facility] Urine Urine specimen obtained by clean catch procedure / Unknown Non-blood Collection / Unknown 08/18/2023 11:54 PM EST 08/19/2023 12:01 AM EST Chuck Hernandez MD LAB MICRO - GENERA L ORDERABLES LABORATORY [facility] [address] [place] [address] * (ABNORMAL) MRSA SCREEN, PCR (08/18/2023 10:21 PM EST) [facility] MRSA PCR Result Positive( A) Negative 08/19/2023 3:41 AM EST LABORATORY [facility] Comment:Methicillin resistan t Staphylococcus aureus detected by PCR (amplified probe). MRSA-This patient may require isolation. Please refer to Infection Control isolation policy. Upper Respiratory (Nares, Bilateral) Non-blood Collection / Unknown 08/18/2023 10:21 PM EST 08/18/2023 10:30 PM EST Chuck Hernandez MD LAB MICRO - GENERA L ORDERABLES LABORATORY [facility] [address] [place] [address] * URINALYSIS, REFLEX TO MICROSCOPIC (08/18/2023 9:03 PM EST) Color, Urine Yellow Light Yellow, Yellow, Dark Yellow 08/18/2023 9:20 PM EST LABORATORY [facility] Clarity, Urine Clear Clear 08/18/2023 9:20 PM EST LABORATORY [facility] Glucose, Urine Negative Negative mg/dL 08/18/2023 9:20 PM EST LABORATORY [facility] Bilirubin, Urine Negative Negative 08/18/2023 9:20 PM EST LABORATORY [facility] Ketone, Urine Negative Negative mg/dL 08/18/2023 9:20 PM EST LABORATORY [facility] Specific [place], Urine 1.004 1.003 - 1.030 08/18/2023 9:20 PM EST LABORATORY [facility] Blood, Urine Negative Negative 08/18/2023 9:20 PM EST LABORATORY [facility] pH, Urine 6.0 5.0 - 7.5 Units 08/18/2023 9:20 PM EST LABORATORY [facility] Protein, Urine Negative Negative mg/dL 08/18/2023 9:20 PM EST LABORATORY [facility] Urobilinogen, Urine 0.2 0.2, 1.0 mg/dL 08/18/2023 9:20 PM EST LABORATORY [facility] Nitrite, Urine Negative Negative 08/18/2023 9:20 PM EST LABORATORY [facility] Esterase, Urine Negative Negative 9:20 PM EST LABORATORY [facility] Comment, Urine 08/18/2023 9:20 PM EST LABORATORY [facility] Comment:Screen negative - Mi croscopic not performed. Urine Urine specimen obtained by clean catch procedure / Unknown Non-blood Collection / Unknown 08/18/2023 9:03 PM EST 08/18/2023 9:10 PM EST [facility] ORDER[place] [address] * XR CHEST 1 VIEW (08/18/2023 8:22 PM EST) Anatomical Region Laterality Modality Chest Digital Radiogra phy 08/18/2023 8:06 PM EST Impressions 08/18/2023 8:38 PM EST IMPRESSION: No acute cardiopulmonary disease. THIS DOCUMENT HAS BEEN ELECTRONICALLY SIGNED BY TOR MCKEON MD Narrative 08/18/2023 8:38 PM EST PROCEDURE INFORMATION: Exam: XR Chest Exam date and time: 08/18/2023 8:06 PM Age: 48 years old Clinical indication: Other: Difficulty walking/weakness TECHNIQUE: Imaging protocol: Radiologic exam of the chest. Views: 1 view. COMPARISON: CT CHEST/ABDOMEN/PELVIS WITH IV CONTRAST WITH ORAL CONTRAST 12/19/2022 6:17 PM FINDINGS: Lungs: Unremarkable. No consolidation. Pleural spaces: Unremarkable. No pleural effusion. No pneumothorax. Heart/Mediastinum: Unremarkable. No cardiomegaly. Bones/joints: Unremarkable. Procedure Note Tor Mckeon MD - 08/18/2023 PROCEDURE INFORMATION: Exam: XR Chest Exam date and time: 08/18/2023 8:06 PM Age: 48 years old Clinical indication: Other: Difficulty walking/weakness TECHNIQUE: Imaging protocol: Radiologic exam of the chest. Views: 1 view. COMPARISON: CT CHEST/ABDOMEN/PELVIS WITH IV CONTRAST WITH ORAL CONTRAST 12/19/2022 6:17PM FINDINGS: Lungs: Unremarkable. No consolidation. Pleural spaces: Unremarkable. No pleural effusion. No pneumothorax. Heart/Mediastinum: Unremarkable. No cardiomegaly. Bones/joints: Unremarkable. IMPRESSION IMPRESSION: No acute cardiopulmonary disease. THIS DOCUMENT HAS BEEN ELECTRONICALLY SIGNED BY TOR MCKEON MD [facility] RADIOLOGY ([facility]) * XR TIB/FIB 2 VIEWS (08/18/2023 8:22 PM EST) Anatomical Region Laterality Modality Lower Extremity, TibFib Digital Radiography 08/18/2023 8:06 PM EST Impressions 08/18/2023 8:39 PM EST IMPRESSION: No acute osseous abnormality. THIS DOCUMENT HAS BEEN ELECTRONICALLY SIGNED BY TOR MCKEON MD Narrative 08/18/2023 8:39 PM EST PROCEDURE INFORMATION: Exam: XR Left Tibia and Fibula Exam date and time: 08/18/2023 8:06 PM Age: 48 years old Clinical indication: Other: Deep wounds on both legs TECHNIQUE: Imaging protocol: Radiologic exam of the left tibia and fibula. Views: 2 views. COMPARISON: CT PET^[facility] 01/20/2023 2:48 PM FINDINGS: Bones/joints: No acute fracture or dislocation. No bone erosion. No significant degenerative joint disease. Osteopenia. Soft tissues: Diffuse soft tissue edema. Multiple soft tissue defects. Procedure Note Tor Mckeon MD - 08/18/2023 PROCEDURE INFORMATION: Exam: XR Left Tibia and Fibula Exam date and time: 08/18/2023 8:06 PM Age: 48 years old Clinical indication: Other: Deep wounds on both legs TECHNIQUE: Imaging protocol: Radiologic exam of the left tibia and fibula. Views: 2 views. COMPARISON: CT PET^[facility] 01/20/2023 2:48 PM FINDINGS: Bones/joints: No acute fracture or dislocation. No bone erosion. Nosignificant degenerative joint disease. Osteopenia. Soft tissues: Diffuse soft tissue edema. Multiple soft tissue defects. IMPRESSION IMPRESSION: No acute osseous abnormality. THIS DOCUMENT HAS BEEN ELECTRONICALLY SIGNED BY TOR MCKEON MD [facility] RADIOLOGY ([facility]) * XR L SPINE AP AND LATERAL (08/18/2023 8:22 PM EST) Anatomical Region Laterality Modality Vertebra, Lspine Digital Radiogr aphy 08/18/2023 8:06 PM EST Impressions 08/18/2023 8:46 PM EST IMPRESSION: No acute findings. THIS DOCUMENT HAS BEEN ELECTRONICALLY SIGNED BY TOR MCKEON MD Narrative 08/18/2023 8:46 PM EST PROCEDURE INFORMATION: Exam: XR Lumbosacral Spine Exam date and time: 08/18/2023 8:06 PM Age: 48 years old Clinical indication: Other: Abnormal lesions on her spine in the past and now having more trouble walking TECHNIQUE: Imaging protocol: Radiologic exam of the lumbosacral spine. Views: 2 or 3 views. COMPARISON: CT PET^[facility] 01/20/2023 2:48 PM FINDINGS: Bones/joints: Transitional lumbosacral type anatomy. For the purposes of lumbar spine numbering, there is a hypoplastic right rib at L1. By this numbering, there is a lumbarized appearance of the S1 vertebral body. There is a 5 mm grade 1 anterolisthesis of L5 on S1 with L5 pars defects. Lumbar vertebral body heights are unremarkable. No acute fracture. No significant lumbar disc height loss. No aggressive bone lesion. Soft tissues: Unremarkable. Procedure Note Tor Mckeon MD - 08/18/2023 PROCEDURE INFORMATION: Exam: XR Lumbosacral Spine Exam date and time: 08/18/2023 8:06 PM Age: 48 years old Clinical indication: Other: Abnormal lesions on her spine in the past andnow having more trouble walking TECHNIQUE: Imaging protocol: Radiologic exam of the lumbosacral spine. Views: 2 or 3 views. COMPARISON: CT PET^[facility] 01/20/2023 2:48 PM FINDINGS: Bones/joints: Transitional lumbosacral type anatomy. For the purposes oflumbar spine numbering, there is a hypoplastic right rib at L1. By thisnumbering, there is a lumbarized appearance of the S1 vertebral body. There is a 5 mm grade 1 anterolisthesis of L5 on S1 with L5 pars defects. Lumbar vertebralbody heights are unremarkable. No acute fracture. No significant lumbar discheight loss. No aggressive bone lesion. Soft tissues: Unremarkable. IMPRESSION IMPRESSION: No acute findings. THIS DOCUMENT HAS BEEN ELECTRONICALLY SIGNED BY TOR MCKEON MD [facility] RADIOLOGY ([facility]) * XR T SPINE AP AND LATERAL (08/18/2023 8:22 PM EST) Anatomical Region Laterality Modality Vertebra, Spine, Tspine Digital Radiography 08/18/2023 8:06 PM EST Impressions 08/18/2023 8:41 PM EST IMPRESSION: No acute findings. THIS DOCUMENT HAS BEEN ELECTRONICALLY SIGNED BY TOR MCKEON MD Narrative 08/18/2023 8:41 PM EST PROCEDURE INFORMATION: Exam: XR Thoracic Spine Exam date and time: 08/18/2023 8:06 PM Age: 48 years old Clinical indication: Other: Abnormal lesions on her spine in the past and now having more trouble walking TECHNIQUE: Imaging protocol: Radiologic exam of the thoracic spine. Views: 2 views. COMPARISON: CT PET^[facility] 01/20/2023 2:48 PM FINDINGS: Bones/joints: Mild chronic appearing compression deformities of the thoracic spine. Thoracic vertebral bodies are well aligned. No acute fracture. Mild degrees of thoracic disc height loss. No aggressive bone lesion identified. Soft tissues: Unremarkable. Procedure Note Tor Mckeon MD - 08/18/2023 PROCEDURE INFORMATION: Exam: XR Thoracic Spine Exam date and time: 08/18/2023 8:06 PM Age: 48 years old Clinical indication: Other: Abnormal lesions on her spine in the past andnow having more trouble walking TECHNIQUE: Imaging protocol: Radiologic exam of the thoracic spine. Views: 2 views. COMPARISON: CT PET^[facility] 01/20/2023 2:48 PM FINDINGS: Bones/joints: Mild chronic appearing compression deformities of thethoracic spine. Thoracic vertebral bodies are well aligned. No acute fracture.Mild degrees of thoracic disc height loss. No aggressive bone lesionidentified. Soft tissues: Unremarkable. IMPRESSION IMPRESSION: No acute findings. THIS DOCUMENT HAS BEEN ELECTRONICALLY SIGNED BY TOR MCKEON MD Kwesi Mcadams DO RADIOLOGY ([facility]) * CT HEAD/BRAIN WO CONTRAST (08/18/2023 8:06 PM EST) Anatomical Region Laterality Modality Head Computed Tomogra phy 08/18/2023 7:56 PM EST Impressions 08/18/2023 8:37 PM EST IMPRESSION: No acute intracranial abnormality. THIS DOCUMENT HAS BEEN ELECTRONICALLY SIGNED BY TOR MCKEON MD Narrative 08/18/2023 8:37 PM EST PROCEDURE INFORMATION: Exam: CT Head Without Contrast Exam date and time: 08/18/2023 7:56 PM Age: 48 years old Clinical indication: Pain; Headache; Additional info: Difficulty walking and using her legs, abnormal lesions on her spine in the past TECHNIQUE: Imaging protocol: Computed tomography of the head without contrast. Radiation optimization: All CT scans at this facility use at least one of these dose optimization techniques: automated exposure control; mA and/or kV adjustment per patient size (includes targeted exams where dose is matched to clinical indication); or iterative reconstruction. COMPARISON: CT PET^[facility] 01/20/2023 2:48 PM FINDINGS: Brain: [place] white differentiation is unremarkable. No acute hemorrhage. No mass effect or midline shift. No finding to suggest an acute infarct. Cerebral ventricles: No hydrocephalus. Paranasal sinuses: Visualized sinuses are unremarkable. No fluid levels. Mastoid air cells: Visualized mastoid air cells are well aerated. Bones/joints: Unremarkable. No acute fracture. Soft tissues: Unremarkable. Vasculature: Atherosclerotic calcifications of the carotid arteries. Procedure Note Tor Mckeon MD - 08/18/2023 PROCEDURE INFORMATION: Exam: CT Head Without Contrast Exam date and time: 08/18/2023 7:56 PM Age: 48 years old Clinical indication: Pain; Headache; Additional info: Difficulty walkingand using her legs, abnormal lesions on her spine in the past TECHNIQUE: Imaging protocol: Computed tomography of the head without contrast. Radiation optimization: All CT scans at this facility use at least one ofthese dose optimization techniques: automated exposure control; mA and/or kV adjustment per patient size (includes targeted exams where dose is matchedto clinical indication); or iterative reconstruction. COMPARISON: CT PET^[facility] 01/20/2023 2:48 PM FINDINGS: Brain: [place] white differentiation is unremarkable. No acute hemorrhage. Nomass effect or midline shift. No finding to suggest an acute infarct. Cerebral ventricles: No hydrocephalus. Paranasal sinuses: Visualized sinuses are unremarkable. No fluid levels. Mastoid air cells: Visualized mastoid air cells are well aerated. Bones/joints: Unremarkable. No acute fracture. Soft tissues: Unremarkable. Vasculature: Atherosclerotic calcifications of the carotid arteries. IMPRESSION IMPRESSION: No acute intracranial abnormality. THIS DOCUMENT HAS BEEN ELECTRONICALLY SIGNED BY TOR MCKEON MD [facility] * CULTURE, BLOOD (08/18/2023 7:56 PM EST) [facility] Blood Culture Growth No growth 08/23/2023 8:[address] [facility] Blood Venous blood specimen / Unknown Venipuncture / Unknown 08/18/2023 7:56 PM EST 08/18/2023 7:59 PM EST [facility] MICRO - GENERAL ORDERABLES Performing Organization Address City/[facility]/ZIP Co de Phone Number LABORATORY [address] [address] * GROUP A STREP PCR (08/18/2023 7:55 PM EST) [facility] Group A Strep PCR Result Negative. No Group A Streptococcus detected by PCR (amplified probe). Negative 08/19/2023 8:40 AM EST LABORATORY [facility] Comment:This test was develo ped and its performance characteristics determined by [employer]. It has not been cleared or approved by the FDA. The laboratory is regulated under CLIA as qualified to perform high-complexity testing. This test is used for clinical purposes. It should not be regarded as investigational or for research. Swab Throat swab / Unknown 08/18/2023 7:55 PM EST 08/18/2023 7:59 PM EST [facility] MICRO - GENERAL ORDERABLES LABORATORY [address] [address] * GROUP A STREP RAPID THROAT (08/18/2023 7:55 PM EST) [facility] Group A Strep Result Negative Negative 08/18/2023 8:[address] [facility] Swab Throat swab / Unknown 08/18/2023 7:55 PM EST 08/18/2023 7:59 PM EST Kwesi Mcadams LAB MICRO - GENERAL ORDERABLES LABORATORY [facility] [address], [place] [id number] * RESPIRATORY PATHOGEN PANEL, PCR (08/18/2023 7:55 PM EST) Pathologist [facility] Adenovirus by PCR Negative Negative 024 8:[address] [facility] Coronavirus 229E by PCR Negative Negative 08/18/2023 8:[address] [facility] Coronavirus HKU1 by PCR Negative Negative 08/18/2023 8:[address] [facility] Coronavirus NL63 by PCR Negative Negative 08/18/2023 8:[address] [facility] Coronavirus OC43 by PCR Negative Negative 08/18/2023 8:[address] [facility] Coronavirus SARS-CoV-2 by PCR Negative Negative 08/18/2023 8:[address] [facility] Human Metapneumovirus by PCR Negative Negative 08/18/2023 8:[address] [facility] Rhinovirus/Enterovi [place] by PCR Negative Negative 08/18/2023 8:[address] [facility] Influenza A Virus by PCR Negative Negative 08/18/2023 8:[address] [facility] Influenza B Virus by PCR Negative Negative 08/18/2023 8:[address] [facility] Parainfluenza Virus 1 by PCR Negative Negative 08/18/2023 8:[address] [facility] Parainfluenza Virus 2 by PCR Negative Negative 08/18/2023 8:[address] [facility] Parainfluenza Virus 3 by PCR Negative Negative 08/18/2023 8:[address] [facility] Parainfluenza Virus 4 by PCR Negative Negative 08/18/2023 8:[address] [facility] Respiratory Syncytial Virus by PCR Negative Negative 08/18/2023 8:[address] [facility] Bordetella pertussis by PCR Negative Negative 08/18/2023 8:[address] [facility] Chlamydia pneumoniae by PCR Negative Negative 08/18/2023 8:[address] [facility] Mycoplasma pneumoniae by PCR Negative Negative 08/18/2023 8:[address] [facility] Bordetella parapertussis by PCR Negative Negative 08/18/2023 8:[address] [facility] Comment: The primers that detect Rhinovirus may cross react with some Enterorviruses. The validation of bronchial specimens, tracheal aspirates, and throats for this assay was developed and performance characteristics determined by [employer]. The validation of alternate specimen types has not been cleared or approved by the U.S. Food and Drug Administration (FDA). It has been determined that such clearance or approval is not necessary. Upper Respiratory Mid-turbinate nasal swab / Unknown Non-blood Collection / Unknown 08/18/2023 7:55 PM EST 08/18/2023 7:59 PM EST Kwesi Mcadams LAB MICRO - GENERAL ORDERABLES Performing Organization Address [facility] de Phone Number LABORATORY [address] [address] * TSH (08/18/2023 7:47 PM EST) TSH 3.07 0.27 - 4.20 uIU/mL 08/19/2023 1:[address] [facility] Blood Venous blood specimen / Unknown Venipuncture / Unknown 08/18/2023 7:47 PM EST 08/18/2023 7:50 PM EST Chuck Hernandez MD LAB BLOOD ORDERABL ES Performing Organization Address [facility] de Phone Number LABORATORY [address] [address] * DIFFERENTIAL, TECHNOLOGIST REVIEW (08/18/2023 7:47 PM EST) Blood Venous blood specimen / Unknown Venipuncture / Unknown 08/18/2023 7:47 PM EST 08/18/2023 7:50 PM EST Kwesi Mcadams DO LAB BLOOD ORDERABLE S Performing Organization Address [facility] de Phone Number LABORATORY [address] [place] [address] * CULTURE, BLOOD (08/18/2023 7:47 PM EST) Pathologist [facility] Blood Culture Growth No growth 08/23/2023 8:[address] [facility] Blood Venous blood specimen / Unknown Venipuncture / Unknown 08/18/2023 7:47 PM EST 08/18/2023 7:50 PM EST Kwesi Mcadams LAB MICRO - GENERAL ORDERABLES LABORATORY [facility] [address], [place] [id number] * (ABNORMAL) DIFFERENTIAL, AUTOMATED (08/18/2023 7:47 PM EST) Pathologist [facility] WBC 14.68(H) 4.00 - 10.80 K/uL 08/18/2023 8:[address] [facility] Neutrophils % 72.0 40.0 - 75.0 % 08/18/2023 8:56 PM EST LABORATORY [facility] Lymphocytes % 11.4(L) 18.0 - 42.0 % 08/18/2023 8:56 PM EST LABORATORY GL Monocytes % 12.8(H) 1.0 - 11.0 % 08/18/2023 8:56 PM EST LABORATORY GL Eosinophils % 2.2 0.0 - 6.0 % 08/18/2023 8:56 PM EST LABORATORY GL Basophils % 0.7 0.0 - 2.0 % 08/18/2023 8:56 PM EST LABORATORY GL Immature Granulocytes % 0.9 0.0 - 2.0 % 08/18/2023 8:56 PM EST LABORATORY [facility] Absolute Neutrophils 10.56(H) 1.80 - 7.70 K/uL 08/18/2023 8:56 PM EST LABORATORY [facility] Absolute Lymphocytes 1.67 1.00 - 4.80 K/ul 08/18/2023 8:56 PM EST LABORATORY GL Absolute Monocytes 1.88(H) 0.00 - 1.10 K/uL 08/18/2023 8:56 PM EST LABORATORY GL Absolute Eosinophils 0.33 0.00 - 0.70 K/uL 08/18/2023 8:56 PM EST LABORATORY GL Absolute Basophils 0.11 0.00 - 0.20 K/uL 08/18/2023 8:56 PM EST LABORATORY GL Absolute Immature Granulocytes 0.13 0.00 - 0.20 K/uL 08/18/2023 8:56 PM EST LABORATORY GL Blood Venous blood specimen / Unknown Venipuncture / Unknown 08/18/2023 7:47 PM EST 08/18/2023 7:50 PM EST Kwesi Mcadams LAB BLOOD ORDERABLE S LABORATORY [facility] [address] [place] [address] * (ABNORMAL) CBC (08/18/2023 7:47 PM EST) WBC 14.68(H) 4.00 - 10.80 K/uL 08/18/2023 8:[address] [facility] RBC 4.50 3.85 - 5.15 M/uL 08/18/2023 8:56 PM EST LABORATORY GL HGB 12.8 12.0 - 15.3 g/dL 08/18/2023 8:56 PM EST LABORATORY GL HCT 38.4 36.0 - 45.2 % 08/18/2023 8:56 PM EST LABORATORY GL MCV 85.3 81.5 - 97.5 fL 08/18/2023 8:56 PM EST LABORATORY GL MCH 28.4 27.0 - 34.0 pg 08/18/2023 8:56 PM EST LABORATORY GL MCHC 33.3 32.0 - 36.0 g/dL 08/18/2023 8:56 PM EST LABORATORY GL RDW 16.8 11.5 - 15.5 % 08/18/2023 8:56 PM EST LABORATORY GL PLT 1,192(HH) 140 - 400 K/uL 08/18/2023 8:56 PM EST LABORATORY GL Comment: Results rechecked. MPV 8.5 6.6 - 11.1 fL 08/18/2023 8:56 PM EST LABORATORY GL nRBCs 0 <=0 /100 WBCs 08/18/2023 8:[address] [facility] Blood Venous blood specimen / Unknown Venipuncture / Unknown 08/18/2023 7:47 PM EST 08/18/2023 7:50 PM EST Kwesi Mcadams LAB BLOOD ORDERABLE S Performing Organization Address City/[facility]/ZIP Co de Phone Number LABORATORY [address] [address] * EXTRA LIGHT BLUE TOP (08/18/2023 7:47 PM EST) Blood Venous blood specimen / Unknown Venipuncture / Unknown 08/18/2023 7:47 PM EST 08/18/2023 7:50 PM EST [facility] Performing Organization Address City/[facility]/ZIP Co de Phone Number LABORATORY [address] [phone] * LACTATE WITH REFLEX IF ABNORMAL (08/18/2023 7:47 PM EST) Lactate 1.3 0.4 - 2.0 mmol/L 08/18/2023 8:[address] [facility] Blood Venous blood specimen / Unknown Venipuncture / Unknown 08/18/2023 7:47 PM EST 08/18/2023 7:50 PM EST Kwesi Raymond [facility] LAB BLOOD ORDERABLE S Performing Organization Address City/[facility]/ZIP Co de Phone Number LABORATORY [address] [address] * (ABNORMAL) CRP (INFLAMMATORY MARKER) (08/18/2023 7:47 PM EST) CRP (Inflammatory Marker) 35(H) <=5 mg/L 08/18/2023 8:[address] [facility] Blood Venous blood specimen / Unknown Venipuncture / Unknown 08/18/2023 7:47 PM EST 08/18/2023 7:50 PM EST Kwesi Mcadams LAB BLOOD ORDERABLE S LABORATORY [address] [address] * PHOSPHORUS (08/18/2023 7:47 PM EST) Phosphorus 4.1 2.5 - 4.8 mg/dL 08/18/2023 8:08 PM EST LABORATORY GL Blood Venous blood specimen / Unknown Venipuncture / Unknown 08/18/2023 7:47 PM EST 08/18/2023 7:50 PM EST Kwesi Mcadams LAB BLOOD ORDERABLE S Performing Organization Address City/[facility]/ZIP Co de Phone Number LABORATORY [address] [address] * MAGNESIUM (08/18/2023 7:47 PM EST) Magnesium 2.1 1.5 - 2.6 mg/dL 08/18/2023 8:[address] [facility] Blood Venous blood specimen / Unknown Venipuncture / Unknown 08/18/2023 7:47 PM EST 08/18/2023 7:50 PM EST Kwesi Mcadams LAB BLOOD ORDERABLE S Performing Organization Address City/[facility]/ZIP Co de Phone Number LABORATORY [address] [address] * (ABNORMAL) COMPREHENSIVE METABOLIC PANEL (08/18/2023 7:47 PM EST) BUN 9 6 - 20 mg/dL 08/18/2023 8:08 PM EST LABORATORY GL Creatinine 0.5 0.5 - 1.0 mg/dL 08/18/2023 8:08 PM EST LABORATORY [facility] Estimated Glomerular Filtration Rate >90 >=60 mL/min 08/18/2023 8:08 PM EST LABORATORY [facility] Comment:eGFR is calculated b ased on the CKD-EPI 2020 equation Sodium 135 135 - 146 mmol/L 08/18/2023 8:08 PM EST LABORATORY GL[facility] Potassium 3.6 3.5 - 5.1 mmol/L 08/18/2023 8:08 PM EST LABORATORY [facility] Chloride 103 98 - 107 mmol/L 08/18/2023 8:08 PM EST LABORATORY [facility] CO2 21(L) 22 - 32 mmol/L 08/18/2023 8:08 PM EST LABORATORY [facility] Anion Gap 11 7 - 15 mmol/L 08/18/2023 8:08 PM EST LABORATORY [facility] Glucose 96 70 - 120 mg/dL 08/18/2023 8:08 PM EST LABORATORY [facility] Albumin 2.8(L) 3.8 - 5.0 g/dL 08/18/2023 8:08 PM EST LABORATORY [facility] AST 23 10 - 35 U/L 08/18/2023 8:08 PM EST LABORATORY GL[facility] Alkaline Phosphatase 144(H) 35 - 130 U/L 08/18/2023 8:08 PM EST LABORATORY [facility] Bilirubin, Total 0.2 <=1.2 mg/dL 08/18/2023 8:08 PM EST LABORATORY [facility] Calcium 8.7 8.4 - 10.2 mg/dL 08/18/2023 8:08 PM EST LABORATORY [facility] Protein 6.3 6.0 - 8.3 g/dL 08/18/2023 8:08 PM EST LABORATORY [facility] ALT 18 10 - 35 U/L 08/18/2023 8:08 PM EST LABORATORY [facility] Blood Venous blood specimen / Unknown Venipuncture / Unknown 08/18/2023 7:47 PM EST 08/18/2023 7:50 PM EST Kwesi Mcadams LAB BLOOD ORDERABLE S LABORATORY [address] [place] [address] documented in this encounter Visit Diagnoses Diagnosis Generalized weakness- Primary Other malaise and fatigue Thrombocytosis Essential thrombocythemia Multiple open wounds of lower leg, unspecified laterality, initial encounter Ambulatory dysfunction Cardiac arrhythmia, unspecified Sinus pause Other heart block Anemia due to chronic blood loss Iron deficiency anemia secondary to blood loss (chronic) Lymphedema Other lymphedema Venous stasis ulcers of both lower extremities (HCC) Sore throat Acute pharyngitis Thrombocytosis Essential thrombocythemia Celiac disease Malnutrition of moderate degree (HCC) Malnutrition of moderate degree Intermittent complete atrioventricular block (HCC) Atrioventricular block, complete Anemia due to chronic blood loss Iron deficiency anemia secondary to blood loss (chronic) Dysphagia Dysphagia, unspecified Abnormal findings on esophagogastroduodenoscopy (EGD) documented in this encounter Administered Medications Inactive Administered Medications - up to 3 most recent administrations Medication Order MAR Action Action Date Dose Rate Site Acetaminophen (Tylenol) tab 650 mg 650 mg, Oral, Q6H PRN Pain, Moderate, Pain, Severe, Fever >38C(100.5F), Starting on Mon08/18/23 at 2120, Until Mon08/25/23 at 1330, Maximum of 4 grams (4000 mg) per day. Given 08/25/2023 10:36 AM EST 650 mg Given 08/24/2023 6:10 PM EST 650 mg Given 08/24/2023 11:27 AM EST 650 mg Acetaminophen (Tylenol) tab 650 mg 650 mg, Oral, Q6H PRN Pain, Moderate, Fever >38C(100.5F), Starting on Mon08/25/23 at 1330, Until 08/26/23 at 1736, Maximum of 4 grams (4000 mg) per day. Given 08/26/2023 8:52 AM EST 650 mg Given 08/25/2023 9:08 PM EST 650 mg Given 08/25/2023 5:21 PM EST 650 mg Albuterol Sulfate (Proventil) (2.5 MG/3ML) 0.083% inhalation solution 2.5 mg 2.5 mg, Nebulizer, Q4H PRN Dyspnea, Starting on Mon08/21/23 at 0208, Until 08/26/23 at 1736 ampicillin-sulbactam in NSS (Unasyn) ivpb 3 g 3 g, IV Piggyback, Q6H, 20 doses, First dose on Mon08/24/23 at 1200, Last dose on Mon08/29/23 at 0600, MIX BEFORE ADMINISTERING! New Bag 08/26/2023 6:54 AM EST 3 g 220 mL/hr New Bag 08/26/2023 12:00 AM EST 3 g 220 mL/hr New Bag 08/25/2023 5:16 PM EST 3 g 220 mL/hr hEParin inj 5,000 Units 5,000 Units, Subcutaneous, Q8H, First dose on 08/19/23 at 0600, Until Discontinued Given 08/26/2023 6:46 AM EST 5,000 Units Abdomen Right Lower Given 08/25/2023 9:09 PM EST 5,000 Units A bdomen Left Upper Given 08/25/2023 3:30 PM EST 5,000 Units T high Left Ioversol (Optiray 320) inj 100 mL 100 mL, Intravenous, ONCE, On 08/19/23 at 1015, For 1 dose, Radiology Medication Routing (Non-IR) Given 08/19/2023 10:15 AM EST 100 mL Menthol ([place]) cough drop 1 Lozenge 1 Lozenge, Oral, Q2H PRN Sore throat, Starting on Mon08/18/23 at 2146, Until 08/26/23 at 1736 Given 08/26/2023 6:45 AM EST 1 Lozenge Given 08/24/2023 11:24 AM EST 1 Lozenge Given 08/24/2023 8:13 AM EST 1 Lozenge midodrine (Proamatine) tab 5 mg 5 mg, Oral, TID(AM/NOON/HS), First dose (after last modification) on Mon08/20/23 at 1200, Until Discontinued Given 08/26/2023 12:11 PM EST 5 mg Given 08/26/2023 6:43 AM EST 5 mg Given 08/25/2023 10:00 PM EST 5 mg midodrine (Proamatine) tab 5 mg 5 mg, Oral, ONCE, On Mon08/21/23 at 0030, For 1 dose Given 08/21/2023 12:15 AM EST 5 mg midodrine HCl (Proamatine) tab 10 mg 10 mg, Oral, ONCE, On 08/19/23 at 2115, For 1 dose Given 08/19/2023 8:38 PM EST 10 mg morphine sulfate inj 1 mg 1 mg, IV Push, Q3H PRN Pain, Severe, Starting on Mon08/22/23 at 1142, Until 08/26/23 at 1736 NSS 0.9% 500 mL bolus infusion Peripheral IV, at 500 mL/hr Administer over 60 Minutes, Administer entire volume within 60 minutes or less., ONCE, 1 dose, On Mon08/18/23 at 2015 New Bag 08/18/2023 8:26 PM EST 500 mL 500 mL/hr NSS 0.9% 500 mL bolus infusion Intravenous, at 500 mL/hr Administer over 60 Minutes, Administer entire volume within 60 minutes or less., ONCE, 1 dose, On 08/19/23 at 0130 New Bag 08/19/2023 1:08 AM EST 500 mL 500 mL/hr NSS infusion Intravenous, at 100 mL/hr, CONTINUOUS, Starting on 08/19/23 at 1330, Until 08/20/23 at 2355 New 08/20/2023 8:38 PM EST 100 mL/hr Rate Verify 08/20/2023 7:27 PM EST 100 mL/hr Restarted 08/20/2023 6:57 PM EST 100 mL/hr NSS infusion Intravenous, at 125 mL/hr, CONTINUOUS, Starting on Mon08/21/23 at 0030, Until Mon08/21/23 at 0827 Rate Verify 08/21/2023 6:47 AM EST 125 mL/hr Rate Verify 08/21/2023 6:06 AM EST 125 mL/hr New 08/21/2023 5:25 AM EST 125 mL/hr NSS infusion Intravenous, at 75 mL/hr, CONTINUOUS, Starting on Mon08/21/23 at 0900, Until Mon08/21/23 at 0950 [facility] 08/21/2023 8:36 AM EST 75 mL/hr NSS infusion Intravenous, at 50 mL/hr, CONTINUOUS, Starting on Mon08/21/23 at 1030, Until Cari 08/24/23 at 0749 New 08/24/2023 7:29 AM EST 50 mL/hr New 08/23/2023 3:35 PM EST 50 mL/hr Rate Verify 08/22/2023 6:36 PM EST 50 mL/hr omeprazole (PriLOSEC) cap 20 mg 20 mg, Oral, BEFORE BREAKFAST, First dose on Mon08/22/23 at 0745, Until Discontinued, This med should NOT be Crushed or Chewed Given 08/26/2023 6:43 AM EST 20 mg Given 08/25/2023 6:33 AM EST 20 mg Given 08/24/2023 6:34 AM EST 20 mg Pantoprazole (Protonix) inj 40 mg 40 mg, IV Push, Daily(AM), First dose on [facility] 08/19/23 at 1115, Until Discontinued, IV push instructions: Flush I.V. Line before and after administration. In-line filter not required. 2-minute infusion: The volume of reconstituted solution (4mg/ml) to be injected may be administered intravenously over at least 2 minutes. ( Dilute each vial with 10 ml of 0.9% saline PF) Given 08/21/2023 8:23 AM EST 40 mg Given 08/20/2023 10:16 AM EST 40 mg Given 08/19/2023 12:01 PM EST 40 mg Piperacillin-Tazobactam (Zosyn) 4.5 g in 100 mL NSS ivpb (FOUR hour infusion) IV Piggyback, 4.5 g, Q8HNOW, 15 doses, First dose on [facility] 08/19/23 at 0730, Last dose on Cari 08/24/23 at 0100, Administer over 4 Hours, at 25 mL/hr New Bag 08/24/2023 2:52 AM EST 4.5 g 25 mL/hr New Bag 08/23/2023 6:14 PM EST 4.5 g 25 mL/hr New Bag 08/23/2023 9:45 AM EST 4.5 g 25 mL/hr Piperacillin-Tazobactam (Zosyn) 4.5 g in 100 mL NSS ivpb (HALF hour infusion) IV Piggyback, 4.5 g, ONCE, 1 dose, On [facility] 08/19/23 at 0130, Administer over 30 Minutes New Bag 08/19/2023 2:23 AM EST 4.5 g 200 mL/hr potassium CHLORide liquid 30 mEq 30 mEq, Oral, Q1H, First dose on [facility] 08/19/23 at 1200, Last dose on [facility] 08/19/23 at 1300, For 2 doses, To avoid GI irritation, must further diilute 15 ml in 3 ounces H2O or other fluid Given 08/19/2023 1:11 PM EST 30 mEq Given 08/19/2023 12:06 PM EST 30 mEq PRO-STAT MAX oral liquid 30 mL, Oral, TID(AM/NOON/HS), First dose on [facility] 08/19/23 at 2200, Until Discontinued Given 08/26/2023 12:11 PM EST 30 mL Given 08/26/2023 6:42 AM EST 30 mL Given 08/25/2023 9:09 PM EST 30 mL Silver sulfADIAZINE (Silvadene) 1 % cream Topical, BID (.AM/PM), First dose on Mon08/20/23 at 1330, Until Discontinued, Apply to b/l LE open wounds too small for wet to dry dressings Given 08/26/2023 8:54 AM EST Given 08/25/2023 10:37 AM EST Given 08/24/2023 11:37 AM EST vancomycin (50 mg/ml) oral solution 125 mg 125 mg, Oral, Q6H, First dose on Mon08/25/23 at 1800, Last dose on Mon09/04/23 at 1200, For 10 days Given 08/26/2023 6:45 AM EST 125 mg Given 08/25/2023 11:50 PM EST 125 mg Given 08/25/2023 6:48 PM EST 125 mg Vancomycin (Vancocin) 1000 mg in NSS 250 mL ivpb LOCKED DOSE 1,000 mg, IV Piggyback, Q8H, First dose on Mon08/22/23 at 0800, Until Discontinued New Bag 08/24/2023 2:35 AM EST 1,000 mg 275 mL /hr New Bag 08/23/2023 6:17 PM EST 1,000 mg 275 mL/hr New Bag 08/23/2023 10:33 AM EST 1,000 mg 275 mL/hr Vancomycin (Vancocin) 1250 mg in NSS 250 mL ivpb 1,250 mg, IV Piggyback, Q24H, First dose on Mon08/19/23 at 0130, Until Discontinued, To be managed by pharmacist Restarted 08/19/2023 2:49 AM EST 833.1 mg/hr 183.3 mL/hr Restarted 08/19/2023 1:52 AM EST 833.1 mg/hr 183.3 mL/hr New Bag 08/19/2023 1:32 AM EST 1,250 mg 183.33 mL/hr Vancomycin (Vancocin) 1250 mg in NSS 250 mL ivpb 1,250 mg, IV Piggyback, BID (), First dose (after last modification) on Mon08/20/23 at 0800, Until Discontinued New Bag 08/21/2023 9:33 PM EST 1,250 mg 183.33 mL/hr Restarted 08/21/2023 9:23 AM EST 833.1 mg/hr 183.3 mL/hr Restarted 08/21/2023 9:05 AM EST 833.1 mg/hr 183.3 mL/hr Vancomycin (Vancocin) 1500 mg in NSS 250 mL ivpb LOCKED DOSE 1,500 mg, IV Piggyback, BID (799,1999), First dose on Mon08/19/23 at 0800, Until Discontinued New Bag 08/19/2023 8:11 PM EST 1,500 mg 183.33 mL/hr Restarted 08/19/2023 11:34 AM EST 999.8 mg/hr 183.3 mL/hr Restarted 08/19/2023 11:32 AM EST 999.8 mg/hr 183.3 mL/hr documented in this encounter Active and Recently Administered Medications Times are shown in EST. Scheduled Medication Order 08/24/2023 08/25/2023 08/26/2023 ampicillin-sulbactam in NSS (Unasyn) ivpb 3 g (CANCELED) 3 g, IV Piggyback, Q6H, 20 doses, First dose on Mon08/24/23 at 1200, Last dose on Mon08/29/23 at 0600, MIX BEFORE ADMINISTERING! 1132 (New Bag - Provider: Emre Parry RN)1202 (Stopped - Provider: Emre Parry, REE)1820 (New Bag - Provider: Kendra Ortega RN)1850 (Stopped - Provider: Kendra Perkins RN) 0006 (New Bag - Provider: Huong Crain, RN)0036 (Stopped - Provider: Kendra Perkins, RN)0701 (New Bag - Provider: Huong Crain, RN)0731 (Stopped - Provider: Kendra Perkins, RN)1225 (New Bag - Provider: Dora Soni, RN)1255 (Stopped - Provider: Kendra Perkins RN)1716 (New Bag - Provider: Dora Soni, RN)1746 (Stopped - Provider: Kendra Perkins RN) 0000 (New Bag - Provider: Kendra Perkins RN)0030 (Stopped - Provider: Kendra Perkins RN)0654 (New Bag - Provider: Kendra Perkins RN)1015 (Not Given - Provider: Gunjan Christiansen RN - Reason: Order Discontinued) hEParin inj 5,000 Units 5,000 Units, Subcutaneous, Q8H, First dose on Mon08/19/23 at 0600, Until Discontinued 0634 (Given - Provider: Chen Taylor RN)1514 (Given - Provider: Emre Parry RN)2122 (Given - Provider: Huong Crain RN) 0633 (Given - Provider: Huong Crain RN)1530 (Given - Provider: Dora Soni, RN)2109 (Given - Provider: Kendra Perkins RN) 0646 (Given - Provider: Kendra Perkins RN) lidocaine 1 % inj 100 mg 100 mg (10 mL), Subcutaneous, ONCE, On Mon08/25/23 at 1230, For 1 dose, For biopsy, please let fritz siddiqui know when at bedside thank you 1230 (Not Given - Provider: Dora Soni RN - Reason: Refused-Notify Provider - Comment: Dr. Soco Siddiqui present at bedside and pt refused to have biopsy performed) midodrine (Proamatine) tab 5 mg 5 mg, Oral, TID(AM/NOON/HS), First dose (after last modification) on Mon08/20/23 at 1200, Until Discontinued 0634 (Given - Provider: Chen Taylor RN)1120 (Given - Provider: Emre Parry RN)212 (Given - Provider: Huong Crain RN) 0633 (Given - Provider: Huong Crain RN)1223 (Given - Provider: Dora Soni RN)2200 (Given - Provider: Kendra Perkins RN) 0643 (Given - Provider: Kendra Perkins RN)1211 (Given - Provider: Gunjan Christiansen RN) omeprazole (PriLOSEC) cap 20 mg 20 mg, Oral, BEFORE BREAKFAST, First dose on Mon08/22/23 at 0745, Until Discontinued, This med should NOT be Crushed or Chewed 0634 (Given - Provider: Chen Taylor RN) 0633 (Given - Provider: Huong Crain RN) 0643 (Given - Provider: Kendra Perkins, REE) Piperacillin-Tazobactam (Zosyn) 4.5 g in 100 mL NSS ivpb (FOUR hour infusion) (COMPLETED) IV Piggyback, 4.5 g, Q8HNOW, 15 doses, First dose on 08/19/23 at 0730, Last dose on Cari 08/24/23 at 0100, Administer over 4 Hours, at 25 mL/hr 0252 (New Bag - Provider: Chen Taylor, RN) PRO-STAT MAX oral liquid 30 mL, Oral, TID(AM/NOON/HS), First dose on 08/19/23 at 2200, Until Discontinued 0634 (Given - Provider: Chen Taylor, RN)1121 (Given - Provider: Emre Parry, REE)2122 (Given - Provider: Huong Crain RN) 0634 (Given - Provider: Huong Crain, RN)1222 (Given - Provider: Dora Soni RN)2109 (Given - Provider: Kendra Perkins RN) 0642 (Given - Provider: Kendra Perkins RN)1211 (Given - Provider: Gunjan Christiansen, REE) Silver sulfADIAZINE (Silvadene) 1 % cream Topical, BID (.AM/PM), First dose on 08/20/23 at 1330, Until Discontinued, Apply to b/l LE open wounds too small for wet to dry dressings 1137 (Given - Provider: Emre Parry, REE)2100 (Not Given - Provider: Huong Crain RN - Reason: Refused-Notify Provider - Comment: Patient refused to have dressing changed tonight) 1037 (Given - Provider: Dora Soni RN - Comment: Allison Nur [facility] wound nurse completed dressing change)2100 (Not Given - Provider: Kendra Perkins RN - Reason: Refused-Notify Provider - Comment: Refused evening dressing changes) 0854 (Given - Provider: Gunjan Christiansen RN) vancomycin (50 mg/ml) oral solution 125 mg (CANCELED) 125 mg, Oral, Q6H, First dose on Mon08/25/23 at 1800, Last dose on Mon09/04/23 at 1200, For 10 days 1848 (Given - Provider: Dora Soni RN)2350 (Given - Provider: Kendra Perkins, RN) 0645 (Given - Provider: Kendra Perkins RN) Vancomycin (Vancocin) 1000 mg in NSS 250 mL ivpb LOCKED DOSE (CANCELED) 1,000 mg, IV Piggyback, Q8H, First dose on Mon08/22/23 at 0800, Until Discontinued 0235 (New Bag - Provider: Chen Taylor RN)1000 (Not Given - Provider: Emre Parry RN - Reason: Order Discontinued - Comment: Clarified with pharmacy [facility], order was discontinued)1043 (Not Given - Provider: Emre Parry RN - Reason: Order Discontinued) Continuous Medication Order 08/24/2023 08/25/2023 08/26/2023 NSS infusion (CANCELED) Intravenous, at 50 mL/hr, CONTINUOUS, Starting on Mon08/21/23 at 1030, Until Cari 08/24/23 at 0749 0729 (New Bag - Provider: Chen Taylor RN)0816 (Stopped - Provider: Emre Parry RN) PRN Medication Order 08/24/2023 08/25/2023 08/26/2023 Acetaminophen (Tylenol) tab 650 mg (CANCELED) 650 mg, Oral, Q6H PRN Pain, Moderate, Pain, Severe, Fever >38C(100.5F), Starting on Mon08/18/23 at 2120, Until Mon08/25/23 at 1330, Maximum of 4 grams (4000 mg) per day. 1127 (Given - Provider: Emre Parry RN)1810 (Given - Provider: Kendra Ortega RN) 1036 (Given - Provider: Dora Soni RN) Acetaminophen (Tylenol) tab 650 mg 650 mg, Oral, Q6H PRN Pain, Moderate, Fever >38C(100.5F), Starting on Mon08/25/23 at 1330, Until 08/26/23 at 1736, Maximum of 4 grams (4000 mg) per day. 1721 (Given - Provider: Dora Soni RN)2108 (Given - Provider: Kendra Perkins RN) 0852 (Given - Provider: Gunjan Christiansen RN) Albuterol Sulfate (Proventil) (2.5 MG/3ML) 0.083% inhalation solution 2.5 mg 2.5 mg, Nebulizer, Q4H PRN Dyspnea, Starting on 08/21/23 at 0208, Until 08/26/23 at 1736 Menthol ([place]) cough drop 1 Lozenge 1 Lozenge, Oral, Q2H PRN Sore throat, Starting on Mon08/18/23 at 2146, Until 08/26/23 at 1736 0813 (Given - Provider: Emre Parry RN)1124 (Given - Provider: Emre Parry RN) 0645 (Given - Provider: Kendra Perkins RN) morphine sulfate inj 1 mg 1 mg, IV Push, Q3H PRN Pain, Severe, Starting on Tu08/22/23 at 1142, Until 08/26/23 at 1736 documented in this encounter Additional Health Concerns Infection Onset Date Last Indicated Resolved Time Respiratory Rule-Out 08/18/2023 08/18/2023 024 8:59 PM EST COVID-19 Rule-Out 08/18/2023 08/18/2023 08/18/2023 8:59 PM EST C. difficile Rule-Out 08/19/2023 08/21/20232023 10:23 AM EST Gastrointestinal Rule-Out 08/19/2023 08/21/2023 8:16 PM EST C. difficile Rule-Out 08/25/2023 08/26/20232023 5:39 AM EST documented as of this encounter Advance Directives Latest Code Status on File Code Status Date Activated Date Inactivated Comments Full Code 08/18/2023 9:22 PM 08/26/2023 5:36 PM This order reflects the patients wishes and were consensually agreed upon. Question Answer Comments Discussion of Advance Directives occurred with: Not Discussed due to patient's condition Care Teams Geological Engineer Relationship Specialty Start Date End Date Marilyn Abarca CRNP [address] [place] [address] PCP - General Nurse Practitioner 12/08/22 documented as of this encounter
--- OUTSIDE RECORDS SUMMARY | 2023-10-17 06:42 | External Medical Summary ---
Author Name Unknown Address Unknown Organization [id number]:LABORATORY [facility] - [address] [place], [place] [address] [address] Laboratory Report Ordering Provider Test Date Status TRACY TRUJILLO 08/26/2023 07:08:00 Final Observation Date Value Abnormality Reference (Units ) Status WBC, Total 08/26/2023 07:08:00 17.92 Above high normal 4.00-10.80 (K/uL) Final RBC 08/26/2023 07:08:00 4.25 3.85-5.15 (M/uL) Final Hemoglobin 08/26/2023 07:08:00 12.3 12.0-15.3 (g/dL) Final HCT 08/26/2023 07:08:00 36.7 36.0-45.2 (%) Final MCV 08/26/2023 07:08:00 86.4 81.5-97.5 (fL) Final MCH 08/26/2023 07:08:00 28.9 27.0-34.0 (pg) Final MCHC 08/26/2023 07:08:00 33.5 32.0-36.0 (g/dL) Final RDW 08/26/2023 07:08:00 17.7 11.5-15.5 (%) Final Platelets 08/26/2023 07:08:00 1055 Above upper panic limits 140-400 (K/uL) Final MPV 08/26/2023 07:08:00 9.2 6.6-11.1 (fL) Final Nucleated erythrocytes/100 leukocytes [Ratio] in Blood by Automated count 08/26/2023 07:08:00 0 <=0 (/100 WBCs) Final Performing Location LABORATORY [facility] - [address] [place] [id number]
--- OUTSIDE RECORDS SUMMARY | 2023-10-17 06:43 | External Medical Summary ---
Author Name Unknown Address Unknown Organization [id number]:LABORATORY [facility] - [address] [place] [address] Laboratory Report Ordering Provider Test Date Status TRACY TRUJILLO 08/23/2023 06:20:00 Final Observation Date Value Abnormality Reference (Units ) Status WBC, Total 08/23/2023 06:20:00 14.71 Above high normal 4.00-10.80 (K/uL) Final RBC 08/23/2023 06:20:00 4.29 3.85-5.15 (M/uL) Final Hemoglobin 08/23/2023 06:20:00 12.2 12.0-15.3 (g/dL) Final HCT 08/23/2023 06:20:00 35.9 Below low normal 36.0-45.2 (%) Final MCV 08/23/2023 06:20:00 83.7 81.5-97.5 (fL) Final MCH 08/23/2023 06:20:00 28.4 27.0-34.0 (pg) Final MCHC 08/23/2023 06:20:00 34.0 32.0-36.0 (g/dL) Final RDW 08/23/2023 06:20:00 16.7 11.5-15.5 (%) Final Platelets 08/23/2023 06:20:00 1142 Above upper panic limits 140-400 (K/uL) Final MPV 08/23/2023 06:20:00 9.2 6.6-11.1 (fL) Final Nucleated erythrocytes/100 leukocytes [Ratio] in Blood by Automated count 08/23/2023 06:20:00 0 <=0 (/100 WBCs) Final Performing Location LABORATORY [facility] - [address] [place] [address]
--- OUTSIDE RECORDS SUMMARY | 2023-10-17 06:43 | External Medical Summary ---
Author Name Unknown Address Unknown Organization K1F:LABORATORY [facility] - [address] [place] [address] Laboratory Report Ordering Provider Test Date Status TRACY TRUJILLO 08/22/2023 06:03:00 Final Observation Date Value Abnormality Reference (Units ) Status WBC, Total 08/22/2023 06:03:00 13.89 Above high normal 4.00-10.80 (K/uL) Final RBC 08/22/2023 06:03:00 4.29 3.85-5.15 (M/uL) Final Hemoglobin 08/22/2023 06:03:00 12.2 12.0-15.3 (g/dL) Final HCT 08/22/2023 06:03:00 35.8 Below low normal 36.0-45.2 (%) Final MCV 08/22/2023 06:03:00 83.4 81.5-97.5 (fL) Final MCH 08/22/2023 06:03:00 28.4 27.0-34.0 (pg) Final MCHC 08/22/2023 06:03:00 34.1 32.0-36.0 (g/dL) Final RDW 08/22/2023 06:03:00 16.9 11.5-15.5 (%) Final Platelets 08/22/2023 06:03:00 1124 Above upper panic limits 140-400 (K/uL) Final MPV 08/22/2023 06:03:00 8.7 6.6-11.1 (fL) Final Nucleated erythrocytes/100 leukocytes [Ratio] in Blood by Automated count 08/22/2023 06:03:00 0 <=0 (/100 WBCs) Final Performing Location [facility] - [address] [id number]
--- OUTSIDE RECORDS SUMMARY | 2023-10-17 06:43 | External Medical Summary ---
Author Name Unknown Address Unknown Organization K1F:LABORATORY [facility] - [address] [place] [address] Laboratory Report Ordering Provider Test Date Status TRACY TRUJILLO 08/25/2023 06:18:00 Final Observation Date Value Abnormality Reference (Units ) Status WBC, Total 08/25/2023 06:18:00 18.82 Above high normal 4.00-10.80 (K/uL) Final RBC 08/25/2023 06:18:00 4.24 3.85-5.15 (M/uL) Final Hemoglobin 08/25/2023 06:18:00 11.7 Below low normal 12.0-15.3 (g/dL) Final HCT 08/25/2023 06:18:00 35.1 Below low normal 36.0-45.2 (%) Final MCV 08/25/2023 06:18:00 82.8 81.5-97.5 (fL) Final MCH 08/25/2023 06:18:00 27.6 27.0-34.0 (pg) Final MCHC 08/25/2023 06:18:00 33.3 32.0-36.0 (g/dL) Final RDW 08/25/2023 06:18:00 16.6 11.5-15.5 (%) Final Platelets 08/25/2023 06:18:00 1066 Above upper panic limits 140-400 (K/uL) Final Results rechecked.
null MPV 08/25/2023 06:18:00 9.1 6.6-11.1 ( fL) Final Nucleated erythrocytes/100 l eukocytes [Ratio] in Blood by Automated count 08/25/2023 06:18:00 0 <=0 (/100 WBCs) Final Performing Location [facility] - [address] [place] [id number]
--- OUTSIDE RECORDS SUMMARY | 2023-10-17 06:43 | External Medical Summary | Summary of Care ---
Author Name Unknown Organization [facility] Address [address] [place] [address] Phone [phone] Care Team Providers Care Robotic Toy Inventor Name Role Phone Marilyn Abarca LEONEL Primary Care Provider [phone] Reason for Visit * Reason Onset Date Comments Outpatient Testing 08/21/2023 Encounter Details Date Type Department Care Team (Late st Contact Info) Description 08/21/2023 Telephone Gastroenterology, [facility] [address] [place] [address] Jessica Colon PA-C [address] [place] [address] Outpatient Testing Allergies Active Allergy Reactions Criticality Noted Date Comments Ferric Derisomaltose 12/30/2022 SOB and lost consciousness documented as of this encounter (statuses as of 08/22/2023) Medications Medication Sig Dispensed Refills Start Date End Date Status Sulfamethoxazole-Trim ethoprim 200-40 MG/5ML Oral Suspension (Bactrim) 0 12/05/2022 Susp ended Furosemide 5 MG OR TABS Take by mouth daily. 0 Suspended documented as of this encounter (statuses as of 08/22/2023) Active Problems Problem Noted Date Diagnosed Date Anemia due to chronic blood loss 08/21/2023 Malnutrition of moderate degree 08/19/2023 Intermittent complete atrioventricular block Lymphedema 08/18/2023 Venous stasis ulcers of both lower extremities 0 08/18/2023 Generalized weakness 08/18/2023 Sore throat 08/18/2023 Thrombocytosis 08/18/2023 Celiac disease 08/18/2023 Other iron deficiency anemias 12/20/2022 Anemia 12/19/2022 documented as of this encounter (statuses as of 08/22/2023) Social History Tobacco Use Types Packs/Day Years [...] encounter Miscellaneous Notes * Telephone Encounter - Eleonora Zheng OSA - 08/22/2023 8:51 AM EST PAT reviewing. * Telephone Encounter - Jessica Colon PA-C - 08/21/2023 3:52 PM EST Patient currently admitted to [facility]. Please arrange repeat EGD in 2-[address] Perez for repeat evaluation/bx of esophagus and duodenal abnormalities seen on previous EGD in January 2023. Having some issues with cardiac conduction as intpt; may need cardiology clearance for procedure. ? She may need OR. Jessica Colon PA-C 08/21/2023 Department of Gastroenterology documented in this encounter Plan of Treatment Scheduled Orders Name Type Priority Associated Diagnoses Orde r Schedule EGD, FLEXIBLE, DIAGNOSTIC Procedures Routine Abnormal findings on esophagogastroduodenoscopy (EGD) Esophageal dysphagia Expected: 10/20/2023, Expires: 09/21/2024 Health Maintenance Due Date Last Done Comments [...] as of this encounter Visit Diagnoses Diagnosis Abnormal findings on esophagogastroduodenoscopy (EGD)- Primary Esophageal dysphagia Dysphagia, pharyngoesophageal phase documented in this encounter Additional Health Concerns Infection Onset Date Last Indicated Resolved Time C. difficile Rule-Out 08/19/2023 08/21/2023 01/15/ 2024 10:23 AM EST Gastrointestinal Rule-Out 08/19/2023 08/21/2023 8:16 PM EST documented as of this encounter Advance Directives Latest Code Status on File Code Status Date Activated Date Inactivated Comments Full Code 08/18/2023 9:22 PM This order reflects the patients wishes and were consensually agreed upon. Question Answer Comments Discussion of Advance Directives occurred with: Not Discussed due to patient's condition Care Teams Robotic Toy Inventor Relationship Specialty Start Date End Date Marilyn Abarca CRNP [address] [place] [address] PCP - General Nurse Practitioner 12/08/22 documented as of this encounter
--- OUTSIDE RECORDS SUMMARY | 2023-10-17 06:43 | External Medical Summary ---
Author Name Unknown Address Unknown Organization K1F:LABORATORY [facility] - [address] [place] [address] Laboratory Report Ordering Provider Test Date Status BLOSSOM DE LOS SANTOS 08/22/2023 06:03:00 Final Observation Date Value Abnormality Reference (Units ) Status Vancomycin, level 08/22/2023 06:03:00 16.0 10 .0-40.0 (ug/mL) Final Performing Location [facility] - [address] [place] [address]
--- OUTSIDE RECORDS SUMMARY | 2023-10-17 06:43 | External Medical Summary ---
Author Name Unknown Address Unknown Organization : Laboratory Report Ordering Provider Test Date Status DOSTEVEN 08/21/2023 14:15:00 Final Observation Date Value Abnormality Reference (Units ) Status HLA Ag [Interpretation] 08/21/2023 14:15:00 SEE BELOW Final The patient has one of the H LA-DQ variants associated
with celiac disease.
More than 97% of celiac patients carry either
HLA-DQ2(DQA1*05/DQB1*02) or HLA-DQ8(DQA1*03/DQB1*0302)
or both. However, 39% of the general [place] population
carry these HLA-DQ variants, as a consequence, the
presence of HLA-DQ2 or DQ8 or both variants is not per
se diagnostic of celiac disease. Genetic counseling as
needed. HLA-DQ2 [Presence] 08/21/2023 14:15:00 Positive Final HLA-DQ8 [Presence] 08/21/2023 14:15:00 Negative Final HLA-DQA1 [Presence] 08/21/2023 14:15:00 05 Final HLA-DQA1 [Presence] 08/21/2023 14:15:00 05 Final HLA-DQB1 [Presence] 08/21/2023 14:15:00 0201 Final HLA-DQB1 [Presence] 08/21/2023 14:15:00 0201 Final RESULTS REVIEWED BY: 08/21/2023 14:15:00 SEE BELOW Final Joelle Castle, Ph.D., [facility]
Car Ferrier, Molecular Oncology
Typing performed by PCR and hybridization with sequence
specific oligonucleotide probes (SSO) using the
FDA- cleared LABType(R) SSO Kit.

Test Performed at:
[facility]
[address]
[place] [address]
Sorin Carver M.D., Ph.D.,Director of Laboratories Performing Location
--- OUTSIDE RECORDS SUMMARY | 2023-10-17 06:43 | External Medical Summary | Summary of Care ---
Author Name Unknown Organization [facility] Address [address] [place] [address] Phone [phone] Care Team Providers Care Job Setter Honing Name Role Phone Marilyn Abarca LEONEL Primary Care Provider [phone] Reason for Visit * Reason Onset Date Comments Outpatient Testing 08/21/2023 Encounter Details Date Type Department Care Team (Late st Contact Info) Description 08/21/2023 Telephone Gastroenterology, [facility] [address] [place] [address] [place] [address] Jessica Colon PA-C [address] [place] [address] Outpatient Testing Allergies Active Allergy Reactions Criticality Noted Date Comments Ferric Derisomaltose 12/30/2022 SOB and lost consciousness documented as of this encounter (statuses as of 08/21/2023) Medications Medication Sig Dispensed Refills Start Date End Date Status Sulfamethoxazole-Trim ethoprim 200-40 MG/5ML Oral Suspension (Bactrim) 0 12/05/2022 Susp ended Furosemide 5 MG OR TABS Take by mouth daily. 0 Suspended documented as of this encounter (statuses as of 08/21/2023) Active Problems Problem Noted Date Diagnosed Date Anemia due to chronic blood loss 08/21/2023 Malnutrition of moderate degree 08/19/2023 Intermittent complete atrioventricular block Lymphedema 08/18/2023 Venous stasis ulcers of both lower extremities 0 08/18/2023 Generalized weakness 08/18/2023 Sore throat 08/18/2023 Thrombocytosis 08/18/2023 Celiac disease 08/18/2023 Other iron deficiency anemias 12/20/2022 Anemia 12/19/2022 documented as of this encounter (statuses as of 08/21/2023) Social History Tobacco Use Types Packs/Day Years [...] Miscellaneous Notes * Telephone Encounter - Jessica Colon PA-C - 08/21/2023 3:52 PM EST Patient currently admitted to [facility]. Please arrange repeat EGD in 2-3 months [...] Indicated Resolved Time C. difficile Rule-Out 08/19/2023 08/21/20232023 10:23 AM EST Gastrointestinal Rule-Out 08/19/2023 08/21/2023 documented as of this encounter Advance Directives Latest Code Status on File Code Status Date Activated Date Inactivated Comments Full Code 08/18/2023 9:22 PM This order reflects the patients wishes and were consensually agreed upon. Question Answer Comments Discussion of Advance Directives occurred with: Not Discussed due to patient's condition Care Teams Job Setter Honing Relationship Specialty Start Date End Date Marilyn Abarca CRNP [address] [place] [address] PCP - General Nurse Practitioner 12/08/22 documented as of this encounter
--- OUTSIDE RECORDS SUMMARY | 2023-10-17 06:43 | External Medical Summary | Summary of Care ---
Author Name Unknown Organization [facility] Address [address] [place] [address] Phone [phone] Care Team Providers Care Vp Human Resources Name Role Phone Marilyn Abarca LEONEL Primary Care Provider [phone] Reason for Visit * Reason Onset Date Comments Outpatient Testing 08/21/2023 Encounter Details Date Type Department Care Team (Late st Contact Info) Description 08/21/2023 Telephone Gastroenterology, [employer] [facility] [address] [place] [address] [place] [address] Jessica Colon PA-C [address] [place] [place] [address] Outpatient Testing Allergies Active Allergy [...] Zheng OSA - 08/22/2023 8:51 AM EST Per [facility]. Spoke to 4B at [facility] as pt still inpatient, scheduled 11/16/[address] Perez. They will let pt know. * Telephone Encounter - Jessica Colon PA-C - 08/21/2023 3:52 PM EST Patient currently admitted to [facility]. Please arrange repeat EGD in 2-3 months [...] Care Team (Latest Contact Info) Description 11/16/2023 11:45 AM EDT Hospital Encounter ENDO [facility], Endoscopy [address] [place] [phone] Tyler Perez MD [address] [place] [address] 11/16/2023 11:45 AM EDT - 11/16/2023 12:15 PM EDT Surgery ENDO [facility], Endoscopy [address] [place] [address] Tyler Perez MD [address] [place] [address] ESOPHAGOGASTRODUODENOSCOPY (EGD), FLEXIBLE, TRANSORAL, DIAGNOSTIC Scheduled Orders Name Type Priority Associated Diagnoses Orde r Schedule EGD, FLEXIBLE, DIAGNOSTIC Procedures Routine Abnormal findings on esophagogastroduodenoscopy (EGD) Esophageal dysphagia Expected: 10/20/2023, Expires: 09/21/2024 Scheduled Procedures Name Priority Associated Diagnoses Date/Ti me ESOPHAGOGASTRODUODENOSCOPY (EGD), FLEXIBLE, TRANSORAL, DIAGNOSTIC Dysphagia Abnormal findings on esophagogastroduodenoscopy (EGD) 11/16/2023 11:45 AM EDT Health Maintenance Due Date Last [...] (EGD)- Primary Esophageal dysphagia Dysphagia, pharyngoesophageal phase Dysphagia Dysphagia, unspecified Abnormal findings on esophagogastroduodenoscopy (EGD) documented in this encounter Additional Health Concerns [...] Discussed due to patient's condition Care Teams Vp Human Resources Relationship Specialty Start Date End Date Marilyn Abarca CRNP [address] [place] [address] PCP - General Nurse Practitioner 12/08/22 documented as of this encounter
--- OUTSIDE RECORDS SUMMARY | 2023-10-17 06:43 | External Medical Summary ---
Author Name Unknown Address Unknown Organization K1F:LABORATORY [facility] - [address] [place] [address] Laboratory Report Ordering Provider Test Date Status TRACY TRUJILLO 08/22/2023 06:03:00 Final Observation Date Value Abnormality Reference (Units ) Status BUN 08/22/2023 06:03:00 3 Below low normal 6-20 (mg/dL) Final Creatinine 08/22/2023 06:03:00 0.4 Below low normal 0.5-1.0 (mg/dL) Final Glomerular filtration rate/1.73 sq M.predicted [Volume Rate/Area] in Serum, Plasma or Blood by Creatinine-based formula (CKD-EPI) 08/22/2023 06:03:00 >90 >=60 (mL/min) Final eGFR is calculated based on the CKD-EPI 2020 equation SODIUM 08/22/2023 06:03:00 142 135-146 (m mol/L) Final Potassium 08/22/2023 06:03:00 3.6 3.5-5.1 (m mol/L) Final Cl 08/22/2023 06:03:00 114 Above high normal 98 -107 (mmol/L) Final CO2 08/22/2023 06:03:00 17 Below low normal 22- 32 (mmol/L) Final Anion gap 08/22/2023 06:03:00 11 7-15 (mmol /L) Final Glucose 08/22/2023 06:03:00 89 70-120 (mg /dL) Final Calcium 08/22/2023 06:03:00 8.3 Below low normal 8.4 -10.2 (mg/dL) Final Performing Location [facility] - [address] [place] [address]
--- OUTSIDE RECORDS SUMMARY | 2023-10-17 06:43 | External Medical Summary ---
Author Name Unknown Address Unknown Organization K1F:LABORATORY [facility] - [address] [place] [address] Laboratory Report Ordering Provider Test Date Status TRACY TRUJILLO 08/23/2023 06:20:00 Final Observation Date Value Abnormality Reference (Units ) Status BUN 08/23/2023 06:20:00 2 Below low normal 6-20 (mg/dL) Final Creatinine 08/23/2023 06:20:00 0.3 Below low normal 0.5-1.0 (mg/dL) Final Glomerular filtration rate/1.73 sq M.predicted [Volume Rate/Area] in Serum, Plasma or Blood by Creatinine-based formula (CKD-EPI) 08/23/2023 06:20:00 >90 >=60 (mL/min) Final eGFR is calculated based on the CKD-EPI 2020 equation SODIUM 08/23/2023 06:20:00 141 135-146 (m mol/L) Final Potassium 08/23/2023 06:20:00 3.6 3.5-5.1 (m mol/L) Final Cl 08/23/2023 06:20:00 112 Above high normal 98 -107 (mmol/L) Final CO2 08/23/2023 06:20:00 18 Below low normal 22- 32 (mmol/L) Final Anion gap 08/23/2023 06:20:00 11 7-15 (mmol /L) Final Glucose 08/23/2023 06:20:00 90 70-120 (mg /dL) Final Calcium 08/23/2023 06:20:00 8.0 Below low normal 8.4 -10.2 (mg/dL) Final Performing Location [facility] - [address] [place] [address]
--- OUTSIDE RECORDS SUMMARY | 2023-10-17 06:43 | External Medical Summary ---
Author Name Unknown Address Unknown Organization K1F:LABORATORY [facility] - [address] [place] [address] Laboratory Report Ordering Provider Test Date Status TRACY TRUJILLO 08/24/2023 06:06:00 Final Observation Date Value Abnormality Reference (Units ) Status BUN 08/24/2023 06:06:00 2 Below low normal 6-20 (mg/dL) Final Creatinine 08/24/2023 06:06:00 0.3 Below low normal 0.5-1.0 (mg/dL) Final Glomerular filtration rate/1.73 sq M.predicted [Volume Rate/Area] in Serum, Plasma or Blood by Creatinine-based formula (CKD-EPI) 08/24/2023 06:06:00 >90 >=60 (mL/min) Final eGFR is calculated based on the CKD-EPI 2020 equation SODIUM 08/24/2023 06:06:00 143 135-146 (m mol/L) Final Potassium 08/24/2023 06:06:00 3.5 3.5-5.1 (m mol/L) Final Cl 08/24/2023 06:06:00 112 Above high normal 98 -107 (mmol/L) Final CO2 08/24/2023 06:06:00 21 Below low normal 22- 32 (mmol/L) Final Anion gap 08/24/2023 06:06:00 10 7-15 (mmol /L) Final Glucose 08/24/2023 06:06:00 98 70-120 (mg /dL) Final Calcium 08/24/2023 06:06:00 8.2 Below low normal 8.4 -10.2 (mg/dL) Final Performing Location [facility] - [address] [place] [address]
--- OUTSIDE RECORDS SUMMARY | 2023-10-17 06:43 | External Medical Summary ---
Author Name Unknown Address Unknown Organization K1F:LABORATORY [facility] - [address] [place] [address] Laboratory Report Ordering Provider Test Date Status TRACY TRUJILLO 08/25/2023 06:18:00 Final Observation Date Value Abnormality Reference (Units ) Status BUN 08/25/2023 06:18:00 3 Below low normal 6-20 (mg/dL) Final Creatinine 08/25/2023 06:18:00 0.3 Below low normal 0.5-1.0 (mg/dL) Final Glomerular filtration rate/1.73 sq M.predicted [Volume Rate/Area] in Serum, Plasma or Blood by Creatinine-based formula (CKD-EPI) 08/25/2023 06:18:00 >90 >=60 (mL/min) Final eGFR is calculated based on the CKD-EPI 2020 equation SODIUM 08/25/2023 06:18:00 141 135-146 (m mol/L) Final Potassium 08/25/2023 06:18:00 3.5 3.5-5.1 (m mol/L) Final Cl 08/25/2023 06:18:00 111 Above high normal 98 -107 (mmol/L) Final CO2 08/25/2023 06:18:00 21 Below low normal 22- 32 (mmol/L) Final Anion gap 08/25/2023 06:18:00 9 7-15 (mmol /L) Final Glucose 08/25/2023 06:18:00 102 70-120 (mg /dL) Final Calcium 08/25/2023 06:18:00 8.5 8.4-10.2 ( mg/dL) Final Performing Location [facility] - [address] [place] [address]
--- OUTSIDE RECORDS SUMMARY | 2023-10-17 06:43 | External Medical Summary ---
Author Name Unknown Address Unknown Organization K1F:LABORATORY [facility] - [facility] [address] [place] [address] Laboratory Report Ordering Provider Test Date Status TRACY TRUJILLO 08/24/2023 06:06:00 Final Observation Date Value Abnormality Reference (Units ) Status WBC, Total 08/24/2023 06:06:00 14.98 Above high normal 4.00-10.80 (K/uL) Final RBC 08/24/2023 06:06:00 4.36 3.85-5.15 (M/uL) Final Hemoglobin 08/24/2023 06:06:00 12.4 12.0-15.3 (g/dL) Final HCT 08/24/2023 06:06:00 36.9 36.0-45.2 (%) Final MCV 08/24/2023 06:06:00 84.6 81.5-97.5 (fL) Final MCH 08/24/2023 06:06:00 28.4 27.0-34.0 (pg) Final MCHC 08/24/2023 06:06:00 33.6 32.0-36.0 (g/dL) Final RDW 08/24/2023 06:06:00 17.1 11.5-15.5 (%) Final Platelets 08/24/2023 06:06:00 1110 Above upper panic limits 140-400 (K/uL) Final MPV 08/24/2023 06:06:00 8.8 6.6-11.1 (fL) Final Nucleated erythrocytes/100 leukocytes [Ratio] in Blood by Automated count 08/24/2023 06:06:00 0 <=0 (/100 WBCs) Final Performing Location LABORATORY [facility] - [address] [place] [address]
--- OUTSIDE RECORDS SUMMARY | 2023-10-17 06:43 | External Medical Summary ---
Author Name Unknown Address Unknown Organization K1F:LABORATORY [facility] - [address] [place] [address] Laboratory Report Ordering Provider Test Date Status BLOSSOM DE LOS SANTOS 08/23/2023 06:20:00 Final Observation Date Value Abnormality Reference (Units ) Status Vancomycin, level 08/23/2023 06:20:00 20.3 10 .0-40.0 (ug/mL) Final Performing Location [facility] - [address] [place] [address]
--- OUTSIDE RECORDS SUMMARY | 2023-10-17 06:43 | External Medical Summary | Summary of Care ---
Author Name Unknown Organization [facility] Address [address] [place] [address] Phone [phone] Care Team Providers Care Sewer Name Role Phone Marilyn Abarca LEONEL Primary Care Provider [phone] Reason for Visit * Auth/Cert Specialty Diagnoses / Procedures Referred By Rowan kiser Referred To Contact Diagnoses Thrombocytosis Referral ID Status Reason Start Date Expiration Date Visits Re quested Visits Authorized [id number] Encounter Details Date Type Department Care Team (Latest Contact Info) Description 08/21/2023 2:00 PM EST - 08/21/2023 11:59 PM EST Hospital Encounter Cardiac Studies, [address] [address] Discharge Disposition: Home - Self Care Allergies [...] as of this encounter Miscellaneous Notes * Ancillary Progress Note - Amarilis Yousif TECH - 08/21/2023 2:05 PM EST Echo completed at bedside. documented in this encounter Plan of Treatment Upcoming Encounters Date Type Department Care Team (Latest Contact Info) Description 11/16/2023 11:45 AM EDT Hospital Encounter ENDO [facility], Endoscopy [address] [place] [address] Tyler Perez MD [address] [place] [address] 11/16/2023 11:45 AM EDT - 11/16/2023 12:15 PM EDT Surgery ENDO [facility], Endoscopy [address] [place] [phone] Tyler Perez MD [address] [place] [address] ESOPHAGOGASTRODUODENOSCOPY (EGD), FLEXIBLE, TRANSORAL, DIAGNOSTIC Scheduled Procedures [...] Procedure Name Priority Date/Time Associated Diagnosis Comments ECHO, COMPLETE (2D), TRANS-THORACIC Routine 08/21/2023 2:35 PM EST Cardiac arrhythmia, unspecified documented in this encounter Results * ECHO, COMPLETE (2D), TRANS-THORACIC (08/21/2023 2:35 PM EST) LEFT VENTRICULAR EJECTION FRACTION 55 % [facility] CARDIOLOGY 08/21/2023 2:36 PM EST Chuck Hernandez MD ECHOCARDIOLOGY [facility] CARDIOLOGY documented in this encounter Additional Health Concerns Infection Onset Date Last Indicated Resolved Time Gastrointestinal Rule-Out 08/19/2023 08/21/2023 8:16 PM EST documented as of this encounter Advance Directives Latest Code Status on File Code Status Date Activated Date Inactivated Comments Full Code 08/18/2023 9:22 PM This order reflects the patients wishes and were consensually agreed upon. Question Answer Comments Discussion of Advance Directives occurred with: Not Discussed due to patient's condition Care Teams Sewer Relationship Specialty Start Date End Date Marliyn Abarca CRNP [address] [place] [address] PCP - General Nurse Practitioner 12/08/22 documented as of this encounter
--- OUTSIDE RECORDS SUMMARY | 2023-10-17 06:44 | External Medical Summary ---
Author Name Unknown Address Unknown Organization K1F:LABORATORY [facility] - [address] [place] [address] Laboratory Report Ordering Provider Test Date Status TRACY TRUJILLO 08/20/2023 06:01:00 Final Observation Date Value Abnormality Reference (Units ) Status WBC, Total 08/20/2023 06:01:00 16.32 Above high normal 4.00-10.80 (K/uL) Final RBC 08/20/2023 06:01:00 4.18 3.85-5.15 (M/uL) Final Hemoglobin 08/20/2023 06:01:00 11.9 Below low normal 12.0-15.3 (g/dL) Final HCT 08/20/2023 06:01:00 34.6 Below low normal 36.0-45.2 (%) Final MCV 08/20/2023 06:01:00 82.8 81.5-97.5 (fL) Final MCH 08/20/2023 06:01:00 28.5 27.0-34.0 (pg) Final MCHC 08/20/2023 06:01:00 34.4 32.0-36.0 (g/dL) Final RDW 08/20/2023 06:01:00 16.8 11.5-15.5 (%) Final Platelets 08/20/2023 06:01:00 1147 Above upper panic limits 140-400 (K/uL) Final MPV 08/20/2023 06:01:00 8.8 6.6-11.1 (fL) Final Nucleated erythrocytes/100 leukocytes [Ratio] in Blood by Automated count 08/20/2023 06:01:00 0 <=0 (/100 WBCs) Final Performing Location LABORATORY [facility] - [address] [place] [address]
--- OUTSIDE RECORDS SUMMARY | 2023-10-17 06:44 | External Medical Summary ---
Author Name Unknown Address Unknown Organization K1F:LABORATORY [facility] - [address] [place] [address] Laboratory Report Ordering Provider Test Date Status RACIEL APPIAH 08/19/2023 20:40:00 Final Observation Date Value Abnormality Reference (Units ) Status BUN 08/19/2023 20:40:00 5 Below low normal 6-20 (mg/dL) Final Creatinine 08/19/2023 20:40:00 0.5 0.5-1.0 (mg/dL) Final Glomerular filtration rate/1.73 sq M.predicted [Volume Rate/Area] in Serum, Plasma or Blood by Creatinine-based formula (CKD-EPI) 08/19/2023 20:40:00 >90 >=60 (mL/min) Final eGFR is calculated based on the CKD-EPI 2020 equation SODIUM 08/19/2023 20:40:00 140 135-146 (m mol/L) Final Potassium 08/19/2023 20:40:00 4.1 3.5-5.1 (m mol/L) Final Cl 08/19/2023 20:40:00 114 Above high normal 98 -107 (mmol/L) Final CO2 08/19/2023 20:40:00 18 Below low normal 22- 32 (mmol/L) Final Anion gap 08/19/2023 20:40:00 8 7-15 (mmol /L) Final Glucose 08/19/2023 20:40:00 107 70-120 (mg /dL) Final Calcium 08/19/2023 20:40:00 8.3 Below low normal 8.4 -10.2 (mg/dL) Final Performing Location [facility] - [address] [place] [address]
--- OUTSIDE RECORDS SUMMARY | 2023-10-17 06:44 | External Medical Summary ---
Author Name Unknown Address Unknown Organization : Laboratory Report Ordering Provider Test Date Status SUSAN CARLSON 08/21/2023 03:32:00 Final Observation Date Value Abnormality Reference (Units ) Status Transferrin receptor.soluble [Mass/volume] in Serum or Plasma 08/21/2023 03:32:00 0.25 Below low normal 0.76-1.76 (mg/L) Final Test performed by [facility]
[address],
[place] [address]

Welder Tech: Alexandra Mohan MD,PHD,MARIVEL
Test Reported by [facility],
[facility],
[address] [place], [place]
Sorin Carver M.D., Ph.D., Director of Laboratories
, [place] [id number] Performing Location
--- OUTSIDE RECORDS SUMMARY | 2023-10-17 06:44 | External Medical Summary ---
Author Name Unknown Address Unknown Organization K01:LABORATORY [facility] [place] - [facility] [address] [facility] [address] Laboratory Report Ordering Provider Test Date Status BLOSSOM DE LOS SANTOS 08/20/2023 15:16:00 Final Observation Date Value Abnormality Reference (Units ) Status [place] light chains, Free, Serum 08/20/2023 15:16:00 31.58 Above high normal 3.30-19.40 (mg/L) Final Lambda light chains, free, Serum 08/20/2023 15:16:00 38.47 Above high normal 5.71-26.30 (mg/L) Final KAPPA LAMBDA FLC RATIO 08/20/2023 15:16:00 0.82 0.26-1.65 Final Performing Location LABORATORY [facility] [place] - [facility] [address] [facility] [address]
--- OUTSIDE RECORDS SUMMARY | 2023-10-17 06:44 | External Medical Summary ---
Author Name Unknown Address Unknown Organization K01:LABORATORY [place] [address] [address] [facility] [address] Laboratory Report Ordering Provider Test Date Status BLOSSOM DE LOS SANTOS 08/21/2023 09:27:26 Final Observation Date Value Abnormality Reference (Units ) Status Campylobacter sp DNA.diarrheagenic [Presence] in Stool by RICK with probe detection 08/21/2023 09:27:26 Negative Negative Final Salmonella sp rpoD gene [Presence] in Stool by RICK with probe detection 08/21/2023 09:27:26 Negative Negative Final Shigella species+EIEC invasion plasmid antigen H ipaH gene [Presence] in Stool by RICK with probe detection 08/21/2023 09:27:26 Negative Negative Final Vibrio sp DNA [Identifier] in Specimen by RICK with probe detection 08/21/2023 09:27:26 Negative Negative Final Yersinia enterocolitica recN gene [Presence] in Stool by RICK with probe detection 08/21/2023 09:27:26 Negative Negative Final Escherichia coli Stx1 toxin stx1 gene [Presence] in Stool by RICK with probe detection 08/21/2023 09:27:26 Negative Negative Final Escherichia coli Stx2 toxin stx2 gene [Presence] in Stool by RICK with probe detection 08/21/2023 09:27:26 Negative Negative Final Norovirus genogroups I and II RNA panel - Stool by RICK with probe detection 08/21/2023 09:27:26 Negative Negative Final Rotavirus A RNA [Presence] in Stool by RICK with probe detection 08/21/2023 09:27:26 Negative Negative Final Performing Location LABORATORY [address] [facility] [address]
--- OUTSIDE RECORDS SUMMARY | 2023-10-17 06:44 | External Medical Summary ---
Author Name Unknown Address Unknown Organization K01:[place] [facility] [place] [address] [facility] [address] Laboratory Report Ordering Provider Test Date Status BLOSSOM DE LOS SANTOS 08/20/2023 15:16:00 Final Observation Date Value Abnormality Reference (Units) Status PARAPROTEIN NORMAL/ABNORMAL 08/20/2023 15:16:00 Normal Normal Final Protein 08/20/2023 15:16:00 5.6 Below low normal 6.0-8.3 (g/dL) Final Albumin/Protein.total [Pure mass fraction] in Serum or Plasma by Electrophoresis 08/20/2023 15:16:00 2.36 Below low normal 3.30-4.40 (g/dL) Final Alpha 1 globulin/Protein.tota l [Pure mass fraction] in Serum or Plasma by Electrophoresis 08/20/2023 15:16:00 0.32 Above high normal 0.10-0.30 (g/dL) Final Alpha 2 globulin/Protein.tota l [Pure mass fraction] in Serum or Plasma by Electrophoresis 08/20/2023 15:16:00 1.11 Above high normal 0.60-1.00 (g/dL) Final Beta globulin/Protein.tota l [Pure mass fraction] in Serum or Plasma by Electrophoresis 08/20/2023 15:16:00 0.90 0.80-1.30 (g/dL) Final Gamma globulin/Protein.tota l [Pure mass fraction] in Serum or Plasma by Electrophoresis 08/20/2023 15:16:00 0.91 0.70-1.70 (g/dL) Final Protein Fractions [Interpretation] in Serum or Plasma by Electrophoresis Narrative 08/20/2023 15:16:00 No paraprotein detected. Final Performing Location LABORATORY C - [address] [facility] [address]
--- OUTSIDE RECORDS SUMMARY | 2023-10-17 06:44 | External Medical Summary ---
Author Name Unknown Address Unknown Organization K01:LABORATORY [facility] [place] - [address] [place] [address] Laboratory Report Ordering Provider Test Date Status BLOSSOM DE LOS SANTOS 08/20/2023 15:16:00 Final Observation Date Value Abnormality Reference (Units) Status CELIAC DISEASE SCREEN INTERP - [facility] 08/20/2023 15:16:00 No serological evidence of celiac disease. Final Tissue transglutaminase IgA Ab [Units/volume] in Serum by Immunoassay 08/20/2023 15:16:00 0.9 <7 (U/mL) Final Tissue transglutaminase IgA Ab [Presence] in Serum by Immunoassay 08/20/2023 15:16:00 Negative Negative Final IgA 08/20/2023 15:16:00 315 70-400 (mg/dL) Final Performing Location [facility]ORY [facility] [place] - [address] [place] [address]
--- OUTSIDE RECORDS SUMMARY | 2023-10-17 06:44 | External Medical Summary ---
Author Name Unknown Address Unknown Organization K01:LAB[facility]ORY [facility] [place] - [facility] [place] [address] Laboratory Report Ordering Provider Test Date Status BLOSSOM DE LOS SANTOS 08/20/2023 18:48:52 Final Observation Date Value Abnormality Reference (Units) Status PARAPROTEIN NORMAL/ABNORMAL 08/20/2023 18:48:52 Normal Normal Final Protein, Urine 08/20/2023 18:48:52 <4 (mg/dL) Final Protein Fractions [Interpretation] in Urine by Electrophoresis Narrative 08/20/2023 18:48:52 Protein concentrations are too low to fractionate. Recommend 24 hour urine collection, if clinically indicated. Final Albumin, Urine 08/20/2023 18:48:52 Final Globulin [Mass/volume] in Urine by Electrophoresis 08/20/2023 18:48:52 Final Performing Location LABORATORY [facility] [place] - [facility] [place] [address]
--- OUTSIDE RECORDS SUMMARY | 2023-10-17 06:44 | External Medical Summary ---
Author Name Unknown Address Unknown Organization K01:[place] [facility] [place] [address] [place] [address] Laboratory Report Ordering Provider Test Date Status BLOSSOM DE LOS SANTOS 08/21/2023 03:31:00 Final Observation Date Value Abnormality Reference (Units ) Status Folic Acid 08/21/2023 03:31:00 6.8 >4.5 (ng/ mL) Final Performing Location LABORATORY C - [address] [place] [address]
--- OUTSIDE RECORDS SUMMARY | 2023-10-17 06:44 | External Medical Summary ---
Author Name Unknown Address Unknown Organization K1F:LABORATORY [facility] - [address] [place] [address] Laboratory Report Ordering Provider Test Date Status BLOSSOM DE LOS SANTOS 08/21/2023 09:27:26 Final Observation Date Value Abnormality Reference (Units) Status Source 08/21/2023 09:27:26 Liquid Final Clostridioides difficile toxin and [id number] strain DNA panel - Stool by RICK with probe detection 08/21/2023 09:27:26 Negative. No C. difficile toxin B gene DNA detected by PCR (Amplified Probe). Negative Final Performing Location LABORATORY [facility] - [address] [place] [address]
--- OUTSIDE RECORDS SUMMARY | 2023-10-17 06:44 | External Medical Summary ---
Author Name Unknown Address Unknown Organization K1F:LABORATORY [facility] - [address] [facility] [address] [facility] [place] [address] Laboratory Report Ordering Provider Test Date Status MELVIN BARILLAS 08/21/2023 03:31:00 Final Observation Date Value Abnormality Reference (Units ) Status Body temperature 08/21/2023 03:31:00 37.0 (C) Final pH of Venous blood 08/21/2023 03:31:00 7.410 7.320-7.430 (units) Final Carbon dioxide [Partial pressure] in Venous blood 08/21/2023 03:31:00 29.6 Below low normal 40.0-60.0 (mmHg) Final Oxygen [Partial pressure] in Venous blood 08/21/2023 03:31:00 61.3 Above high normal 25.0-50.0 (mmHg) Final Base excess, Capillary 08/21/2023 03:31:00 -4.8 Below low normal -2.0-2.0 (mmol/L) Final Hemoglobin [Mass/volume] in Blood by Oximetry 08/21/2023 03:31:00 11.4 Below low normal 12.0-15.3 (g/dL) Final Oxyhemoglobin, Venous (FO2HB) 08/21/2023 03:31:00 88.4 Above high normal 40.0-85.0 (% total Hgb) Final Carboxyhemoglobin 08/21/2023 03:31:00 1.0 <=1.5 (% total Hgb) Final Smokers: 0-9.0 % Methemoglobin 08/21/2023 03:31:00 0.9 <= 1.5 (% total Hgb) Final Deoxyhemoglobin/Hemoglo bin.total in Venous blood 08/21/2023 03:31:00 9.7 (% total Hgb) Final Oxygen content in Venous blood 08/21/2023 03:31:00 14.2 7.0-18.0 (%vol) Final Bicarbonate, Venous, POC (i-STAT) 08/21/2023 03:31:00 18.4 Below low normal 23.0-31.0 (mmol/L) Final Performing Location LABORATORY [facility] - [address] [place] [address]
--- OUTSIDE RECORDS SUMMARY | 2023-10-17 06:44 | External Medical Summary ---
Author Name Unknown Address Unknown Organization K1F:LABORATORY [facility] - [address] [place] [address] Laboratory Report Ordering Provider Test Date Status MELVIN BARILLAS 08/21/2023 03:31:00 Final Observation Date Value Abnormality Reference (Units ) Status Lactic Acid 08/21/2023 03:31:00 1.7 0.4-2.0 (mmol/L) Final Performing Location LABORATORY [facility] - [address] [place] [address]
--- OUTSIDE RECORDS SUMMARY | 2023-10-17 06:44 | External Medical Summary ---
Author Name Unknown Address Unknown Organization K01:LABORATORY [facility] [place] - [address] [facility] [address] Laboratory Report Ordering Provider Test Date Status TEJ DE LOS SANTOSARI 08/20/2023 15:16:00 Final Observation Date Value Abnormality Reference (Units ) Status Ferritin 08/20/2023 15:16:00 45 13-150 (ng /mL) Final Postmenopausal women have hi gher ferritin levels than pre-menopausal women. The above reference interval is based on pre-menopausal women. Performing Location LABORATORY [facility] - [address] [place] [address]
--- OUTSIDE RECORDS SUMMARY | 2023-10-17 06:44 | External Medical Summary ---
Author Name Unknown Address Unknown Organization K01:LABORATORY [facility] [place] - [address] [facility] [address] Laboratory Report Ordering Provider Test Date Status TEJ DE LOS SANTOSARI 08/20/2023 16:13:18 Final Observation Date Value Abnormality Reference (Units ) Status Bacteria identified in Specimen by Culture 08/20/2023 16:13:18 [id number]^PROTEUS MIRABILIS Abnormal Final Few Proteus mirabilis Bacteria identified in Specimen by Culture 08/20/2023 16:13:18 [id number]^BACTEROIDES FRAGILIS Abnormal Final Few Bacteroides fragilis Gram Stain 08/20/2023 16:13:18 Occasional Polymorphonuclear leukocytes Final Gram Stain 08/20/2023 16:13:18 No organisms seen Final Performing Location LABORATORY [facility] [place] - [address] [facility] [address] Ordering Provider Test Date Status TEJ DE LOS SANTOSARI 08/20/2023 16:13:18 Final Observation Date Value Abnormality Reference (Units) Status Ampicillin 08/20/2023 16:13:18 <=2 Susceptible Final Cefepime susceptibility 08/20/2023 16:13:18 <=1 Susceptible Final Ciprofloxacin 08/20/2023 16:13:18 <=0.25 Susceptible Final Gentamicin susceptibility 08/20/2023 16:13:18 <=1 Susceptible Final Piperacillin + Tazobactamsusceptibility 08/20/2023 16:13:18 <=4 Susceptible Final TMP-SMZ susceptibility 08/20/2023 16:13:18 <=20 Susceptible Final Test: Culture, Wound, Deep, Aerobic and Anaerobic
Specimen Source: Leg, Right
Specimen Type: Deep Wound
Specimen Date: 08/20/2023 4:13 PM
Result Date: 08/27/2023 3:08 PM
Result Status: Final result
Abnormal: Yes
Resulting Lab: LABORATORY [facility]
[address]
[place] [address]

CULTURE

Few Proteus mirabilis (Abnormal)

Few Bacteroides fragilis (Abnormal)

STAIN

Occasional Polymorphonuclear leukocytes

No organisms seen

SUSCEPTIBILITY

Proteus mirabilis
METHOD MICROBROTH
DILUTIONS

AMPICILLIN <=2 Susceptible
CEFEPIME <=1 Susceptible
CIPROFLOXACIN <=0.25 Susceptible
GENTAMICIN <=1 Susceptible
PIPERACILLIN TAZOBACTAM <=4 Susceptible
TRIMETH/SULFAMETHOXAZOLE <=20 Susceptible

null Performing Location LABORATORY [facility] [place] - [address] [facility] [address] [place] [address]
--- OUTSIDE RECORDS SUMMARY | 2023-10-17 06:44 | External Medical Summary ---
Author Name Unknown Address Unknown Organization K1F:LABORATORY [facility] - [address] [place] [address] Laboratory Report Ordering Provider Test Date Status TRACY TRUJILLO 08/20/2023 06:01:00 Final Observation Date Value Abnormality Reference (Units ) Status BUN 08/20/2023 06:01:00 4 Below low normal 6-20 (mg/dL) Final Creatinine 08/20/2023 06:01:00 0.5 0.5-1.0 (mg/dL) Final Glomerular filtration rate/1.73 sq M.predicted [Volume Rate/Area] in Serum, Plasma or Blood by Creatinine-based formula (CKD-EPI) 08/20/2023 06:01:00 >90 >=60 (mL/min) Final eGFR is calculated based on the CKD-EPI 2020 equation SODIUM 08/20/2023 06:01:00 141 135-146 (m mol/L) Final Potassium 08/20/2023 06:01:00 4.1 3.5-5.1 (m mol/L) Final Cl 08/20/2023 06:01:00 112 Above high normal 98 -107 (mmol/L) Final CO2 08/20/2023 06:01:00 20 Below low normal 22- 32 (mmol/L) Final Anion gap 08/20/2023 06:01:00 9 7-15 (mmol /L) Final Glucose 08/20/2023 06:01:00 86 70-120 (mg /dL) Final Calcium 08/20/2023 06:01:00 8.3 Below low normal 8.4 -10.2 (mg/dL) Final Performing Location LABORATORY [facility] - [address] [place] [address]
--- OUTSIDE RECORDS SUMMARY | 2023-10-17 06:44 | External Medical Summary ---
Author Name Unknown Address Unknown Organization K1F:LABORATORY [facility] - [address] [place] [address] [address] [place] [address] Laboratory Report Ordering Provider Test Date Status MELVIN BARILLAS 08/21/2023 03:31:00 Final Rheumatoid factor at a level above 50 [...] definitively correlate with clinical severity of disease. Observation Date Value Abnormality Reference (Units ) Status Fibrin D-dimer FEU [Mass/volume] in Platelet poor plasma by Immunoassay 08/21/2023 03:31:00 0.80 Above high normal <0.50 (ug/mL FEU) Final Performing Location LABORATORY [facility] - [address] [facility] [address] [place] [address]
--- OUTSIDE RECORDS SUMMARY | 2023-10-17 06:44 | External Medical Summary ---
Author Name Unknown Address Unknown Organization K01:LABORATORY [facility] [place] - [address] [place] [address] Laboratory Report Ordering Provider Test Date Status MAGALIBLOSSOM 08/20/2023 15:16:00 Final Observation Date Value Abnormality Reference (Units ) Status IgG 08/20/2023 15:16:00 885 580-6306 ( mg/dL) Final IgA 08/20/2023 15:16:00 315 70-400 (mg /dL) Final IgM 08/20/2023 15:16:00 61 40-230 (mg /dL) Final Performing Location LABORATORY C - [address] [place] [address]
--- OUTSIDE RECORDS SUMMARY | 2023-10-17 06:44 | External Medical Summary ---
Author Name Unknown Address Unknown Organization K1F:LABORATORY [facility] - [address] [place] [address] Laboratory Report Ordering Provider Test Date Status BLOSSOM DE LOS SANTOS 08/20/2023 06:01:00 Final Observation Date Value Abnormality Reference (Units ) Status Vancomycin, level 08/20/2023 06:01:00 12.3 10 .0-40.0 (ug/mL) Final Performing Location LABORATORY [facility] - [address] [place] [address]
--- OUTSIDE RECORDS SUMMARY | 2023-10-17 06:44 | External Medical Summary ---
Author Name Unknown Address Unknown Organization K1F:LABORATORY [facility] - [address] [place] [address] Laboratory Report Ordering Provider Test Date Status TRACY TRUJILLO 08/21/2023 03:32:00 Final Observation Date Value Abnormality Reference (Units ) Status WBC, Total 08/21/2023 03:32:00 17.27 Above high normal 4.00-10.80 (K/uL) Final RBC 08/21/2023 03:32:00 4.10 3.85-5.15 (M/uL) Final Hemoglobin 08/21/2023 03:32:00 11.3 Below low normal 12.0-15.3 (g/dL) Final HCT 08/21/2023 03:32:00 33.7 Below low normal 36.0-45.2 (%) Final MCV 08/21/2023 03:32:00 82.2 81.5-97.5 (fL) Final MCH 08/21/2023 03:32:00 27.6 27.0-34.0 (pg) Final MCHC 08/21/2023 03:32:00 33.5 32.0-36.0 (g/dL) Final RDW 08/21/2023 03:32:00 16.3 11.5-15.5 (%) Final Platelets 08/21/2023 03:32:00 1101 Above upper panic limits 140-400 (K/uL) Final MPV 08/21/2023 03:32:00 8.5 6.6-11.1 (fL) Final Nucleated erythrocytes/100 leukocytes [Ratio] in Blood by Automated count 08/21/2023 03:32:00 0 <=0 (/100 WBCs) Final Performing Location LABORATORY [facility] - [address] [place] [address]
--- OUTSIDE RECORDS SUMMARY | 2023-10-17 06:44 | External Medical Summary ---
Author Name Unknown Address Unknown Organization K01:LABORATORY [facility] [place] - [address] [place] [address] Laboratory Report Ordering Provider Test Date Status BLOSSOM DE LOS SANTOS 08/20/2023 15:16:00 Final Observation Date Value Abnormality Reference (Units ) Status Vitamin B12 08/20/2023 15:16:00 949 906-2314 (pg/mL) Final Performing Location LABORATORY [facility] - [address] [place] [address]
--- OUTSIDE RECORDS SUMMARY | 2023-10-17 06:44 | External Medical Summary ---
Author Name Unknown Address Unknown Organization K1F:LABORATORY [facility] - [address] [place] [address] Laboratory Report Ordering Provider Test Date Status TRACY TRUJILLO 08/21/2023 03:31:00 Final Observation Date Value Abnormality Reference (Units ) Status BUN 08/21/2023 03:31:00 4 Below low normal 6-20 (mg/dL) Final Creatinine 08/21/2023 03:31:00 0.4 Below low normal 0.5-1.0 (mg/dL) Final Glomerular filtration rate/1.73 sq M.predicted [Volume Rate/Area] in Serum, Plasma or Blood by Creatinine-based formula (CKD-EPI) 08/21/2023 03:31:00 >90 >=60 (mL/min) Final eGFR is calculated based on the CKD-EPI 2020 equation SODIUM 08/21/2023 03:31:00 138 135-146 (m mol/L) Final Potassium 08/21/2023 03:31:00 3.9 3.5-5.1 (m mol/L) Final Cl 08/21/2023 03:31:00 110 Above high normal 98 -107 (mmol/L) Final CO2 08/21/2023 03:31:00 17 Below low normal 22- 32 (mmol/L) Final Anion gap 08/21/2023 03:31:00 11 7-15 (mmol /L) Final Glucose 08/21/2023 03:31:00 101 70-120 (mg /dL) Final Calcium 08/21/2023 03:31:00 8.0 Below low normal 8.4 -10.2 (mg/dL) Final Performing Location LABORATORY [facility] - [address] [place] [address]
--- OUTSIDE RECORDS SUMMARY | 2023-10-17 06:44 | External Medical Summary ---
Author Name Unknown Address Unknown Organization K01:LABORATORY [facility] [place] - [address] [facility] [address] [place] [id number] Laboratory Report Ordering Provider Test Date Status BLOSSOM DE LOS SANTOS 08/21/2023 09:27:26 Final Microbial imbalance observed
Reduced normal brisa. Clinical correlation needed.
No Aeromonas species or Plesiomonas species isolated. Observation Date Value Abnormality Reference (Units ) Status Bacteria identified in Specimen by Culture 08/21/2023 09:27:26 [id number]^YEAST Abnormal Final Yeast
Test: Gastrointest inal Pathogen Panel Culture
Specimen Source: Stool
Specimen Type: Stool
Specimen Date: 08/21/2023 9:27 AM
Result Date: 08/23/2023 1:22 PM
Result Status: Final result
Abnormal: Yes
Resulting Lab: LABORATORY [facility]
[address]
[facility] [address]

CULTURE

Yeast (Abnormal)

Microbial imbalance observedReduced normal brisa. Clinical correlation
needed.No Aeromonas species or Plesiomonas species isolated.

null Performing Location LABORATORY [facility] [place] - [address] [facility] [address]
--- OUTSIDE RECORDS SUMMARY | 2023-10-17 06:44 | External Medical Summary ---
Author Name Unknown Address Unknown Organization K01:[place]ATORY [facility] [place] [address] [place] [address] Laboratory Report Ordering Provider Test Date Status BLOSSOM DE LOS SANTOS 08/20/2023 15:16:00 Final Observation Date Value Abnormality Reference (Units ) Status Folic Acid 08/20/2023 15:16:00 3.7 Below low normal >4 .5 (ng/mL) Final Performing Location LABORATORY C - [address] [place] [address]
--- OUTSIDE RECORDS SUMMARY | 2023-10-17 06:45 | External Medical Summary ---
Author Name Unknown Address Unknown Organization K1F:LABORATORY [facility] - [address] [facility] [place] [address] Laboratory Report Ordering Provider Test Date Status MADALYN VINSON 08/18/2023 19:47:00 Final Observation Date Value Abnormality Reference (Units ) Status SYNC LEUKOCYTES IN BLOOD BY AUTOMATED COUNT 08/18/2023 19:47:00 14.68 Above high normal 4.00-10.80 (K/uL) Final Segs 08/18/2023 19:47:00 72.0 40.0-75.0 (%) Final Lymphs % 08/18/2023 19:47:00 11.4 Below low normal 18.0-42.0 (%) Final Monos 08/18/2023 19:47:00 12.8 Above high normal 1.0-11.0 (%) Final Eosinophils 08/18/2023 19:47:00 2.2 0.0-6.0 (%) Final Basos 08/18/2023 19:47:00 0.7 0.0-2.0 (%) Final Immature Granulocyte, Percent 08/18/2023 19:47:00 0.9 0.0-2.0 (%) Final Absolute Segs 08/18/2023 19:47:00 10.56 Above high normal 1.80-7.70 (K/uL) Final Lymphs, absolute 08/18/2023 19:47:00 1.67 1.00-4.80 (K/ul) Final Monos, Abs 08/18/2023 19:47:00 1.88 Above high normal 0.00-1.10 (K/uL) Final Eos, Abs 08/18/2023 19:47:00 0.33 0.00-0.70 (K/uL) Final Basos, Abs 08/18/2023 19:47:00 0.11 0.00-0.20 (K/uL) Final Immature Granulocytes, Number 08/18/2023 19:47:00 0.13 0.00-0.20 (K/uL) Final Performing Location LABORATORY [facility] - [facility] [place] [address]
--- OUTSIDE RECORDS SUMMARY | 2023-10-17 06:45 | External Medical Summary ---
Author Name Unknown Address Unknown Organization K1F:LAB[facility]ATORY [facility] - [address] [facility] [place] [address] Laboratory Report Ordering Provider Test Date Status MADALYN VINSON 08/18/2023 19:47:00 Final Observation Date Value Abnormality Reference (Units ) Status BUN 08/18/2023 19:47:00 9 6-20 (mg/dL) Final Creatinine 08/18/2023 19:47:00 0.5 0.5-1.0 (mg/dL) Final Glomerular filtration rate/1.73 sq M.predicted [Volume Rate/Area] in Serum, Plasma or Blood by Creatinine-based formula (CKD-EPI) 08/18/2023 19:47:00 >90 >=60 (mL/min) Final eGFR is calculated based on the CKD-EPI 2020 equation SODIUM 08/18/2023 19:47:00 135 135-146 (m mol/L) Final Potassium 08/18/2023 19:47:00 3.6 3.5-5.1 (m mol/L) Final Cl 08/18/2023 19:47:00 103 98-107 (mm ol/L) Final CO2 08/18/2023 19:47:00 21 Below low normal 22- 32 (mmol/L) Final Anion gap 08/18/2023 19:47:00 11 7-15 (mmol /L) Final Glucose 08/18/2023 19:47:00 96 70-120 (mg /dL) Final Albumin 08/18/2023 19:47:00 2.8 Below low normal 3.8 -5.0 (g/dL) Final AST (Aspartate aminotransferase) 08/18/2023 19:47:00 23 10-35 (U/L) Fin al Alk Phos 08/18/2023 19:47:00 144 Above high normal 35 -130 (U/L) Final Bilirubin, Total 08/18/2023 19:47:00 0.2 <=1 .2 (mg/dL) Final Calcium 08/18/2023 19:47:00 8.7 8.4-10.2 ( mg/dL) Final Protein 08/18/2023 19:47:00 6.3 6.0-8.3 (g /dL) Final ALT (Alanine aminotransferase) 08/18/2023 19:47:00 18 10-35 (U/L) Alcon jovel Performing Location LABORATORY [facility] - [address] [place] [address] [place] [address]
--- OUTSIDE RECORDS SUMMARY | 2023-10-17 06:45 | External Medical Summary ---
Author Name Unknown Address Unknown Organization K1F:LABORATORY [facility] - [address] [place] [address] Laboratory Report Ordering Provider Test Date Status NENA RICHARDS 08/19/2023 06:18:00 Final Observation Date Value Abnormality Reference (Units ) Status Magnesium 08/19/2023 06:18:00 2.2 1.5-2.6 (m g/dL) Final Performing Location LABORATORY [facility] - [address] [place] [address]
--- OUTSIDE RECORDS SUMMARY | 2023-10-17 06:45 | External Medical Summary ---
Author Name Unknown Address Unknown Organization K1F:LABORATORY [facility] - [address] [place] [address] Laboratory Report Ordering Provider Test Date Status MADALYN VINSON 08/18/2023 19:47:00 Final Observation Date Value Abnormality Reference (Units ) Status Lactic Acid 08/18/2023 19:47:00 1.3 0.4-2.0 (mmol/L) Final Performing Location LABORATORY [facility] - [address] [place] [address]
--- OUTSIDE RECORDS SUMMARY | 2023-10-17 06:45 | External Medical Summary ---
Author Name Unknown Address Unknown Organization K1F:LABORATORY [facility] - [address] [place] [address] Laboratory Report Ordering Provider Test Date Status MADALYN VINSON 08/18/2023 19:55:55 Final Observation Date Value Abnormality Reference (Units ) Status Streptococcus pyogenes Ag [Presence] in Throat 08/18/2023 19:55:55 Negative Negative Final Performing Location LABORATORY [facility] - [address] [place] [address]
--- OUTSIDE RECORDS SUMMARY | 2023-10-17 06:45 | External Medical Summary ---
Author Name Unknown Address Unknown Organization K1F:LAB[address]ATORY [address] [place] [address] Laboratory Report Ordering Provider Test Date Status MADALYN VINSON 08/18/2023 19:56:34 Final Observation Date Value Abnormality Reference (Units ) Status Bacteria identified in Specimen by Culture 08/18/2023 19:56:34 No growth Final Test: Culture, Blood
Sp ecimen Source: Blood, Venous
Specimen Type: Blood
Specimen Date: 08/18/2023 7:56 PM
Result Date: 08/23/2023 8:01 PM
Result Status: Final result
Resulting Lab: LABORATORY [facility]
[address] [place] [address]
[place] [address]

CULTURE

No growth

null Performing Location LABORATORY [facility] - [address] [place] [address] [address] [place] [address]
--- OUTSIDE RECORDS SUMMARY | 2023-10-17 06:45 | External Medical Summary ---
Author Name Unknown Address Unknown Organization K1F:LABORATORY [facility] - [address] [facility] [place] [address] Laboratory Report Ordering Provider Test Date Status MADALYN VINSON 08/18/2023 19:55:55 Final ADMITTED patient Observation Date Value Abnormality Reference (Units ) Status Adenovirus DNA [Presence] in Nasopharynx by RICK with non-probe detection 08/18/2023 19:55:55 Negative Negative Final Human coronavirus 229E RNA [Presence] in Nasopharynx by RICK with non-probe detection 08/18/2023 19:55:55 Negative Negative Final Human coronavirus HKU1 RNA [Presence] in Nasopharynx by RICK with non-probe detection 08/18/2023 19:55:55 Negative Negative Final Human coronavirus NL63 RNA [Presence] in Nasopharynx by RICK with non-probe detection 08/18/2023 19:55:55 Negative Negative Final Human coronavirus OC43 RNA [Presence] in Nasopharynx by RICK with non-probe detection 08/18/2023 19:55:55 Negative Negative Final SARS-CoV-2 (COVID-19) RNA [Presence] in Nasopharynx by RICK with non-probe detection 08/18/2023 19:55:55 Negative Negative Final Human metapneumovirus RNA [Presence] in Nasopharynx by RICK with non-probe detection 08/18/2023 19:55:55 Negative Negative Final Rhinovirus+Enterovirus RNA [Presence] in Nasopharynx by RICK with non-probe detection 08/18/2023 19:55:55 Negative Negative Final Influenza virus A RNA [Presence] in Nasopharynx by RICK with non-probe detection 08/18/2023 19:55:55 Negative Negative Final Influenza virus B RNA [Presence] in Nasopharynx by RICK with non-probe detection 08/18/2023 19:55:55 Negative Negative Final Parainfluenza virus 1 RNA [Presence] in Nasopharynx by RICK with non-probe detection 08/18/2023 19:55:55 Negative Negative Final Parainfluenza virus 2 RNA [Presence] in Nasopharynx by RICK with non-probe detection 08/18/2023 19:55:55 Negative Negative Final Parainfluenza virus 3 RNA [Presence] in Nasopharynx by RICK with non-probe detection 08/18/2023 19:55:55 Negative Negative Final Parainfluenza virus 4 RNA [Presence] in Nasopharynx by RICK with non-probe detection 08/18/2023 19:55:55 Negative Negative Final Respiratory syncytial virus RNA [Presence] in Nasopharynx by RICK with non-probe detection 08/18/2023 19:55:55 Negative Negative Final Bordetella pertussis.pertussis toxin promoter region [Presence] in Nasopharynx by RICK with non-probe detection 08/18/2023 19:55:55 Negative Negative Final Chlamydophila pneumoniae DNA [Presence] in Nasopharynx by RICK with non-probe detection 08/18/2023 19:55:55 Negative Negative Final Mycoplasma pneumoniae DNA [Presence] in Nasopharynx by RICK with non-probe detection 08/18/2023 19:55:55 Negative Negative Final Bordetella parapertussis [id number] DNA [Presence] in Nasopharynx by RICK with non-probe detection 08/18/2023 19:55:55 Negative Negative Final
The primers that detect Rhinovirus may cross react with some Enterorviruses. The validation of bronchial specimens, tracheal aspirates, and throats for this assay was developed and performance characteristics determined by [employer]. The validation of alternate specimen types has not been cleared or approved by the U.S. Food and Drug Administration (FDA). It has been determined that such clearance or approval is not necessary. Performing Location [place] [address] [address] [place] [address]
--- OUTSIDE RECORDS SUMMARY | 2023-10-17 06:45 | External Medical Summary ---
Author Name Unknown Address Unknown Organization K1F:LABORATORY [facility] - [address] [place] [address] Laboratory Report Ordering Provider Test Date Status RACIEL APPIAH 08/19/2023 06:18:00 Final Observation Date Value Abnormality Reference (Units ) Status WBC, Total 08/19/2023 06:18:00 14.97 Above high normal 4.00-10.80 (K/uL) Final RBC 08/19/2023 06:18:00 3.89 3.85-5.15 (M/uL) Final Hemoglobin 08/19/2023 06:18:00 11.3 Below low normal 12.0-15.3 (g/dL) Final HCT 08/19/2023 06:18:00 32.1 Below low normal 36.0-45.2 (%) Final MCV 08/19/2023 06:18:00 82.5 81.5-97.5 (fL) Final MCH 08/19/2023 06:18:00 29.0 27.0-34.0 (pg) Final MCHC 08/19/2023 06:18:00 35.2 32.0-36.0 (g/dL) Final RDW 08/19/2023 06:18:00 16.2 11.5-15.5 (%) Final Platelets 08/19/2023 06:18:00 1089 Above upper panic limits 140-400 (K/uL) Final Results rechecked.
null MPV 08/19/2023 06:18:00 8.8 6.6-11.1 ( fL) Final Nucleated erythrocytes/100 l eukocytes [Ratio] in Blood by Automated count 08/19/2023 06:18:00 0 <=0 (/100 WBCs) Final Performing Location LABORATORY [facility] - [address] [place] [address]
--- OUTSIDE RECORDS SUMMARY | 2023-10-17 06:45 | External Medical Summary ---
Author Name Unknown Address Unknown Organization K01:LABORATORY [facility] - [address] [place] [address] Ave[address] [facility] [address] Laboratory Report Ordering Provider Test Date Status MADALYN VINSON 08/18/2023 19:55:55 Final Observation Date Value Abnormality Reference (Units) Status Streptococcus pyogenes DNA [Presence] in Throat by RICK with probe detection 08/18/2023 19:55:55 Negative. No Group A Streptococcus detected by PCR (amplified probe). Negative Final This test was developed and its performance characteristics determined by [employer]. It has not been cleared or approved by the FDA. The laboratory is regulated under CLIA as qualified to perform high- complexity testing. This test is used for clinical purposes. It should not be regarded as investigational or for research. Performing Location LABORATORY [place] [address] [facility] [address]
--- OUTSIDE RECORDS SUMMARY | 2023-10-17 06:45 | External Medical Summary ---
Author Name Unknown Address Unknown Organization K01:LABORATORY [facility] - [address] [place] [address] Laboratory Report Ordering Provider Test Date Status BLOSSOM DE LOS SANTOS 08/19/2023 06:18:00 Final Observation Date Value Abnormality Reference (Units ) Status Erythrocyte sedimentation rate by Photometric method 08/19/2023 06:18:00 23 Above high normal <20 (mm/hour) Final Performing Location LABORATORY [facility] - [address] [place] [address]
--- OUTSIDE RECORDS SUMMARY | 2023-10-17 06:45 | External Medical Summary ---
Author Name Unknown Address Unknown Organization K1F:LABORATORY [facility] - [address] [place] [address] Laboratory Report Ordering Provider Test Date Status BLOSSOM DE LOS SANTOS 08/19/2023 06:18:00 Final Less than 0.5 ng/mL: Low ris k for progression to sepsis. Review patients condition for localized infections.

0.5 to 2.0 ng/mL: Intermediate risk for progresion to sepsis. Review underlying conditions. Recommend repeat PCT after 6 hours has elapsed.

Greater than 2.0 ng/mL: high risk for progression to sepsis unless other causes are known. Observation Date Value Abnormality Reference (Units ) Status Procalcitonin [Mass/volume] in Serum or Plasma by Immunoassay 08/19/2023 06:18:00 0.06 <0.10 (ng/mL) Final Performing Location LABORATORY [facility] - [address] [place] [address]
--- OUTSIDE RECORDS SUMMARY | 2023-10-17 06:45 | External Medical Summary ---
Author Name Unknown Address Unknown Organization K1F:LABORATORY [facility] - [address] [place] [address] Laboratory Report Ordering Provider Test Date Status BLOSSOM DE LOS SANTOS 08/19/2023 06:18:00 Final Observation Date Value Abnormality Reference (Units ) Status CRP, low-sensitivity 08/19/2023 06:18:00 31 Above high normal <=5 (mg/L) Final Performing Location LABORATORY [facility] - [address] [place] [address]
--- OUTSIDE RECORDS SUMMARY | 2023-10-17 06:45 | External Medical Summary ---
Author Name Unknown Address Unknown Organization K1F:LABORATORY [address] [place] [address] Laboratory Report Ordering Provider Test Date Status MADALYN VINSON 08/18/2023 19:47:00 Final Observation Date Value Abnormality Reference (Units ) Status Bacteria identified in Specimen by Culture 08/18/2023 19:47:00 No growth Final Test: Culture, Blood (Site 2)
Specimen Source: Blood, Venous
Specimen Type: Blood
Specimen Date: 08/18/2023 7:47 PM
Result Date: 08/23/2023 8:01 PM
Result Status: Final result
Resulting Lab: LABORATORY [facility]
[address] [place] [address]
[place] [address]

CULTURE

No growth

null Performing Location LABORATORY [facility] - [address] [place] [address] [address] [place] [place] [address]
--- OUTSIDE RECORDS SUMMARY | 2023-10-17 06:45 | External Medical Summary ---
Author Name Unknown Address Unknown Organization K1F:LABORATORY [facility] - [address] [place] [address] Laboratory Report Ordering Provider Test Date Status MADALYN VINSON 08/18/2023 21:03:16 Final Observation Date Value Abnormality Reference (Units ) Status Color of Urine by Auto 08/18/2023 21:03:16 Yellow Light Yellow, Yellow, Dark Yellow Final Clarity, Urine 08/18/2023 21:03:16 Clear Clear Final Glucose [Mass/volume] in Urine by Automated test strip 08/18/2023 21:03:16 Negative Negative (mg/dL) Final Bilirubin.total [Presence] in Urine by Automated test strip 08/18/2023 21:03:16 Negative Negative Final Ketones [Mass/volume] in Urine by Automated test strip 08/18/2023 21:03:16 Negative Negative (mg/dL) Final Specific gravity, Urine 08/18/2023 21:03:16 1.004 1.003-1.030 Final Hemoglobin [Presence] in Urine by Automated test strip 08/18/2023 21:03:16 Negative Negative Final pH, Urine 08/18/2023 21:03:16 6.0 5.0-7.5 (Units) Final Protein [Mass/volume] in Urine by Automated test strip 08/18/2023 21:03:16 Negative Negative (mg/dL) Final Urobilinogen [Mass/volume] in Urine by Automated test strip 08/18/2023 21:03:16 0.2 0.2, 1.0 (mg/dL) Final Nitrite [Presence] in Urine by Automated test strip 08/18/2023 21:03:16 Negative Negative Final Leukocyte esterase [Presence] in Urine by Automated test strip 08/18/2023 21:03:16 Negative Negative Final Annotation Comment 08/18/2023 21:03:16 Final Screen negative - Microscopi c not performed. Performing Location LABORATORY [facility] - [address] [place] [address]
--- OUTSIDE RECORDS SUMMARY | 2023-10-17 06:45 | External Medical Summary ---
Author Name Unknown Address Unknown Organization K1F:LABORATORY [facility] - [address] [place] [address] Laboratory Report Ordering Provider Test Date Status RACIEL APPIAH 08/19/2023 06:18:00 Final Warfarin Therapy
INR: 2 .0-3.0 conventional anticoagulation
INR: 2.5- 3.5 high intensity anticoagulation Observation Date Value Abnormality Reference (Units ) Status PT 08/19/2023 06:18:00 14.5 11.6-15.2 (seconds) Final INR 08/19/2023 06:18:00 1.1 0.8-1.2 Final Performing Location LABORATORY [facility] - [address] [place] [address]
--- OUTSIDE RECORDS SUMMARY | 2023-10-17 06:45 | External Medical Summary ---
Author Name Unknown Address Unknown Organization K1F:LABORATORY [facility] - [address] [place] [address] Laboratory Report Ordering Provider Test Date Status RACIEL APPIAH 08/19/2023 06:18:00 Final Observation Date Value Abnormality Reference (Units ) Status BUN 08/19/2023 06:18:00 5 Below low normal 6-20 (mg/dL) Final Creatinine 08/19/2023 06:18:00 0.4 Below low normal 0.5-1.0 (mg/dL) Final Glomerular filtration rate/1.73 sq M.predicted [Volume Rate/Area] in Serum, Plasma or Blood by Creatinine-based formula (CKD-EPI) 08/19/2023 06:18:00 >90 >=60 (mL/min) Final eGFR is calculated based on the CKD-EPI 2020 equation SODIUM 08/19/2023 06:18:00 141 135-146 (m mol/L) Final Potassium 08/19/2023 06:18:00 3.1 Below low normal 3.5 -5.1 (mmol/L) Final Cl 08/19/2023 06:18:00 111 Above high normal 98 -107 (mmol/L) Final CO2 08/19/2023 06:18:00 20 Below low normal 22- 32 (mmol/L) Final Anion gap 08/19/2023 06:18:00 10 7-15 (mmol /L) Final Glucose 08/19/2023 06:18:00 94 70-120 (mg /dL) Final Calcium 08/19/2023 06:18:00 8.1 Below low normal 8.4 -10.2 (mg/dL) Final Performing Location LABORATORY [facility] - [address] [place] [address]
--- OUTSIDE RECORDS SUMMARY | 2023-10-17 06:45 | External Medical Summary ---
Author Name Unknown Address Unknown Organization K1F:LABORATORY [facility] - [address] [place] [address] Laboratory Report Ordering Provider Test Date Status RACIEL APPIAH 08/19/2023 01:27:00 Final Observation Date Value Abnormality Reference (Units ) Status Troponin T 08/19/2023 01:27:00 6 <=14 (ng/ L) Final Performing Location LABORATORY [facility] - [address] [place] [address]
--- OUTSIDE RECORDS SUMMARY | 2023-10-17 06:45 | External Medical Summary ---
Author Name Unknown Address Unknown Organization K1F:LABORATORY [facility] - [facility] [address] [place] [address] Laboratory Report Ordering Provider Test Date Status MADALYN VINSON 08/18/2023 19:47:00 Final Observation Date Value Abnormality Reference (Units ) Status WBC, Total 08/18/2023 19:47:00 14.68 Above high normal 4.00-10.80 (K/uL) Final RBC 08/18/2023 19:47:00 4.50 3.85-5.15 (M/uL) Final Hemoglobin 08/18/2023 19:47:00 12.8 12.0-15.3 (g/dL) Final HCT 08/18/2023 19:47:00 38.4 36.0-45.2 (%) Final MCV 08/18/2023 19:47:00 85.3 81.5-97.5 (fL) Final MCH 08/18/2023 19:47:00 28.4 27.0-34.0 (pg) Final MCHC 08/18/2023 19:47:00 33.3 32.0-36.0 (g/dL) Final RDW 08/18/2023 19:47:00 16.8 11.5-15.5 (%) Final Platelets 08/18/2023 19:47:00 1192 Above upper panic limits 140-400 (K/uL) Final Results rechecked.
null MPV 08/18/2023 19:47:00 8.5 6.6-11.1 ( fL) Final Nucleated erythrocytes/100 l eukocytes [Ratio] in Blood by Automated count 08/18/2023 19:47:00 0 <=0 (/100 WBCs) Final Performing Location LABORATORY [facility] - [address] [place] [address]
--- OUTSIDE RECORDS SUMMARY | 2023-10-17 06:45 | External Medical Summary ---
Author Name Unknown Address Unknown Organization K1F:LABORATORY [facility] - [address] [place] [address] Laboratory Report Ordering Provider Test Date Status MADALYN VINSON 08/18/2023 19:47:00 Final Observation Date Value Abnormality Reference (Units ) Status Phosphate 08/18/2023 19:47:00 4.1 2.5-4.8 (m g/dL) Final Performing Location LABORATORY [facility] - [address] [place] [address]
--- OUTSIDE RECORDS SUMMARY | 2023-10-17 06:45 | External Medical Summary ---
Author Name Unknown Address Unknown Organization : Laboratory Report Ordering Provider Test Date Status MADALYN VINSON 08/18/2023 19:47:00 Final Observation Date Value Abnormality Reference (Units ) Status Performing Location
--- OUTSIDE RECORDS SUMMARY | 2023-10-17 06:45 | External Medical Summary ---
Author Name Unknown Address Unknown Organization K01:LABORATORY [facility] - [address] [place] [address] Laboratory Report Ordering Provider Test Date Status RACIEL APPIAH 08/18/2023 22:21:45 Final Observation Date Value Abnormality Reference (Units ) Status Methicillin resistant Staphylococcus aureus (MRSA) DNA [Presence] in Nose by RICK with probe detection 08/18/2023 22:21:45 Positive Abnormal Negative Final Methicillin resistant Staphy lococcus aureus detected by PCR (amplified probe). MRSA-This patient may require isolation. Please refer to Infection Control isolation policy. Performing Location LABORATORY [facility] - [address] [place] [address]
--- OUTSIDE RECORDS SUMMARY | 2023-10-17 06:45 | External Medical Summary ---
Author Name Unknown Address Unknown Organization K1F:LABORATORY [facility] - [address] [place] [address] Laboratory Report Ordering Provider Test Date Status RACIEL APPIAH 08/19/2023 06:18:00 Final Observation Date Value Abnormality Reference (Units ) Status Troponin T 08/19/2023 06:18:00 8 <=14 (ng/ L) Final Performing Location LABORATORY [facility] - [address] [place] [address]
--- OUTSIDE RECORDS SUMMARY | 2023-10-17 06:45 | External Medical Summary ---
Author Name Unknown Address Unknown Organization K1F:LABORATORY [address] [place] [address] Laboratory Report Ordering Provider Test Date Status RACIEL APPIAH 08/19/2023 01:22:00 Final Observation Date Value Abnormality Reference (Units ) Status Bacteria identified in Specimen by Culture 08/19/2023 01:22:00 No growth Final Test: Culture, Blood
Sp ecimen Source: Blood, Venous
Specimen Type: Blood
Specimen Date: 08/19/2023 1:22 AM
Result Date: 08/24/2023 2:01 AM
Result Status: Final result
Resulting Lab: LABORATORY [facility]
[address] [place] [address]
[place] [address]

CULTURE

No growth

null Performing Location LABORATORY [facility] - [address] [place] [address] [address] [place] [address]
--- OUTSIDE RECORDS SUMMARY | 2023-10-17 06:45 | External Medical Summary ---
Author Name Unknown Address Unknown Organization K1F:LABORATORY [facility] - [address] [place] [address] Laboratory Report Ordering Provider Test Date Status RACIEL APPIAH 08/18/2023 19:47:00 Final Observation Date Value Abnormality Reference (Units ) Status TSH 08/18/2023 19:47:00 3.07 0.27-4.20 (uIU/mL) Final Performing Location LABORATORY [facility] - [address] [place] [address]
--- OUTSIDE RECORDS SUMMARY | 2023-10-17 06:45 | External Medical Summary ---
Author Name Unknown Address Unknown Organization K01:LABORATORY [facility] [place] [address] [place] [id number] Laboratory Report Ordering Provider Test Date Status RACIEL APPIAH 08/18/2023 23:54:21 Final Observation Date Value Abnormality Reference (Units) Status Bacteria identified in Specimen by Culture 08/18/2023 23:54:21 No significant growth Final Test: Culture, Urine, Quanti tative
Specimen Source: Urine, Clean Catch
Specimen Type: Urine
Specimen Date: 08/18/2023 11:54 PM
Result Date: 08/20/2023 7:34 AM
Result Status: Final result
Resulting Lab: [facility]
[address]
[place] [address]

CULTURE

No significant growth

null Performing Location LABOR[facility]ORY [facility] - [address] [facility] [address]
--- OUTSIDE RECORDS SUMMARY | 2023-10-17 06:45 | External Medical Summary ---
Author Name Unknown Address Unknown Organization K1F:LABORATORY [facility] - [address] [place] [address] Laboratory Report Ordering Provider Test Date Status MADALYN VINSON 08/18/2023 19:47:00 Final Observation Date Value Abnormality Reference (Units ) Status Magnesium 08/18/2023 19:47:00 2.1 1.5-2.6 (m g/dL) Final Performing Location LABORATORY [facility] - [address] [place] [address]
--- OUTSIDE RECORDS SUMMARY | 2023-10-17 06:45 | External Medical Summary ---
Author Name Unknown Address Unknown Organization K1F:LABORATORY [facility] - [address] [place] [address] Laboratory Report Ordering Provider Test Date Status MADALYN VINSON 08/18/2023 19:47:00 Final Observation Date Value Abnormality Reference (Units ) Status CRP, low-sensitivity 08/18/2023 19:47:00 35 Above high normal <=5 (mg/L) Final Performing Location LABORATORY [facility] - [address] [place] [address]
--- OUTSIDE RECORDS SUMMARY | 2023-10-17 06:45 | External Medical Summary ---
Author Name Unknown Address Unknown Organization K1F:LABORATORY [facility] - [address] [place], [place] [address] [address] Laboratory Report Ordering Provider Test Date Status RACIEL APPIAH 08/19/2023 01:27:00 Final Observation Date Value Abnormality Reference (Units ) Status Bacteria identified in Specimen by Culture 08/19/2023 01:27:00 No growth Final Test: Culture, Blood (Site 2)
Specimen Source: Blood, Venous
Specimen Type: Blood
Specimen Date: 08/19/2023 1:27 AM
Result Date: 08/24/2023 2:01 AM
Result Status: Final result
Resulting Lab: LABORATORY [facility]
[address] [place] [address]
[place] [address]

CULTURE

No growth

null Performing Location LABORATORY [facility] - [address] [place] [address] [address] [place] [address]
[2023-10-17] MEDS: VITAMIN B COMPLEX TAB PO SCH (08:35)
[2023-10-17] MEDS: ASPIRIN 81 MG ECTAB PO SCH (08:35)
[2023-10-17] MEDS: FOLIC ACID 1 MG TAB PO SCH (08:35)
--- NOTE | 2023-10-17 09:39 | Neurology Consultation ---
Date of Consultation October 17, 2023 Assessment & Plan (1) Iron deficiency: (2) Thrombocytosis: History of Present Illness Attending Physician: David Martins MD History of Present Illness pt with generalized weakness with severe iron deficiency and thrombocytosis, hepatomegaly and UTI. pt with ongoing weakness likely from ongoing malnurishment, deconditioning. pt this morning talking and alert but feels general weakness. chart reviewed. admission HPI: This is a 48 y/o female with celiac disease, hx ANASTASIA, thrombocytosis who presents today with ongoing weakness for which she has undergone an extensive work-up. Her chart was reviewed in-depth including records from [facility] (admissions, hem/onc notes, reprographics technician note, labs, and imaging) and from [facility]. Pt's provides the majority of the history today. Seen by hematology last summer for severe iron deficiency anemia with a Hgb of 5.7 on 12/19/22. Treated with transfusion on 12/20/22, IV Monoferric 300 mg weekly x 4 weeks, Vitron-C. Anemia and fatigue seemed to be improving. Underwent EGD and colonoscopy which showed probable celiac disease so started on a gluten-free diet and has continued to follow this since then. This was thought to be the underlying etiology of the anemia. She was also noted to have lytic lesions in thoracic and lumbar spine - underwent work-up for multiple myeloma including a PET scan which showed no increased uptake. 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 Has also noted wounds present for over a year - treated with multiple courses of antibiotics and steroids. Intermittent issues with LE edema - treated with furosemide by family doc. The edema seemed to contribute to the wounds. These have since healed. Has also noted vocal changes since having a URI - this seems to wax and wane. On Jul 07, pt's reports that she had increased weakness to the point of being unable to get into the buggy. This weakness seemed particularly pronounced in the LE. She continues to have trouble lifting her legs, foot drop at times. Weakness may wax and wane but has not ever resolved. She often requires assist of 1-2 to ambulate. Her notes that her right hands seems to curl inwards and has made eating difficult. They have noted some upper extremity weakness but not as pronounced as the LE weakness. Symptoms seem somewhat cyclical. Her family notes that she may be difficult to wake up at times, not responding verbally to questions. Stools have been intermittently formed - last year had some diarrhea and used probiotics for a time but this has now improved. She was tried on setraline but her reports this made her worse so he stopped it. Also took a matcha drink but also seemed to make her worse so they stopped it. She was admitted in [place] in Jul 2023 - noted to have leukocytosis, leg wounds were infected but this had improved at time of discharge with treatment. No source of weakness identified. Then admitted to [facility] 08/18-08/26/23 for progressive weakness. Underwent extensive work-up without clear etiology identified. She was noted to have intermittent complete heart block and was seen by cardiology but apparently was not interested in potential PPM. She was recommended to have a Zio monitor as an outpatient but it does not appear this was done. Readmitted to [facility] 09/06-09/12/23 for same complaint> Her LE wounds were improving. She was evaluated by GI for ongoing diarrhea and malnutrition and underwent small bowel enteroscopy. Discharged home and presented to [place] the next day. Admitted to [facility] 09/13-09/22 - had spinal tap and muscle biopsy but family doesn't have the results yet. Had an abnormality on brain MRI so pt had an angiogram but family unsure of results. Did not get the scripts for medications that were sent at discharge because the pharmacy was closed. The reports that he was also concerned about pt being on these medications. She was on methylprednisolone and then on prednisone during that admission but didn't take it when got home (recommended d/c dose of 30 mg BID). concerned about her being on steroids, specifically the potential for leukocytosis worsening. After discharge from [facility], he continued with the recommended wound care and notes healing with closure of the LE wounds within two weeks of being Allergies Allergy/AdvReac Type Severity Reaction Status Date / Time Unable to Assess Allergy Unverified 10/17/23 07:17 Home Medications Medication Instructions Recorded Confirmed Type aspirin 81 mg tablet,delayed 81 mg PO DAILY 10/16/23 10/16/23 History release folic acid 1 mg tablet 1 mg PO DAILY 10/16/23 10/16/23 History Patient History Medical History (Updated 10/17/23 @ 07:17 by Jessica Cooper) Thrombocytosis Celiac disease autoimmune enteropathy Surgical History (Updated 10/17/23 @ 07:17 by Jessica Cooper) History of colonoscopy H/O esophagogastroduodenoscopy Family History (System 10/17/23 @ 07:17 by Jessica Cooper) Grandfather (Maternal) Colorectal cancer Social History (System 10/17/23 @ 07:17 by Jessica Cooper) Smoking Status: Never smoker Hx Alcohol Use: Yes Alcohol type: wine Hx Substance Use: No Preferred Language: Luxembourger Salon Shampoo Assistant Required: No Beliefs That Will Affect Care: Taoism and Cultural Current Living Situation: Spouse Feels Safe at Home: Yes Safety Concerns: Feels Safe At This Time Assistive Devices: Denture - Upper, Denture - Lower and Glasses Exam (Neuro) Physical Exam: HEENT: normocephalic Neuro: Mental: AOx4, fluent speech, normal comprehension, no apraxia, follows command well. CN: PERRL, Full EOM, mild left facial droop, midline T/U/P Motor: No abnormal movements, diffuse muscle atrophy t/o, 4-/5 distally b /l lower ext , 3+/5 proximally LE b/l. 4-/5 distally upper limbs, 3+/5 proximally UE b/l. Sens: intact to touch b/l grossly Coord: intact grossly. DTR: 1+ sym b/l, ?left toe upgoing, rt mute. gait: deferred. Impression: 48 yo female with complex medical history with chronic generalized weakness in setting of severe iron deficiency, hepatomegaly, thrombocytosis, and splenic atrophy. her extensive work up including mri brain and angiogram and muscle labs and CSF studies not suggestive of progressive neurological disorder. her clinically picture does not localize to any SALVAGE ENGINEER process or peripheral nerve process. Overall picture suggestive of hematological disorder that needs further work up and diagnosis from tertiary major medical center. Recommendations: not much to add from neurology at this point as she had extensive neurological work up without clear etiology/localization. needs hem/onc and GI consult likely need [facility] work up for diagnosis given complexity of her condition and progression of her condition. Chart reviewed I have spent more than 50% educating patient about potential diagnosis and neurological evaluation and coordinating care with patient's treatment team. Total time spent (including chart review and coordination of care): 60 min (this includes chart review). Results & Data Vital Signs (Past 12 Hours) Vital Signs Temp Pulse Pulse Resp BP Pulse Ox O2 Del Method 10/17/23 07:33 37.2 C 70 16 94/59 L 98 Room Air 10/17/23 07:11 73 10/17/23 00:41 37.3 C 81 20 96/63 L 94 Room Air 10/16/23 21:52 87 PG Care Time/CCT Total # of Minutes Spent Total Time Spent with Patient: Total time spent is greater than 50% in coordination of care (as documented) at patient's floor/unit and/or counseling patient: Coding Level of Care Code 06577 IN/OBS CONSULT LVL 4,60M Diagnoses Iron deficiency E61.1 Thrombocytosis D75.839
--- NOTE | 2023-10-17 09:54 | Gastrointestinal Consultation ---
Date of Consultation October 17, 2023 Assessment & Plan (1) Dysphagia: 48 year old female with complex history 48 year old female with PMHx iron deficiency anemia, thrombocytosis (thought to be reactive to anemia), chronic lymphedema in lower legs and chronic leg ulcers, celiac (gluten free) dysphagia (EGD scheduled in November) Regarding her painful and difficulty swallowing, she has known esophagitis and is already scheduled for repeat EGD with biopsies in November. No acute indication for inpatient EGD Recommend PO PPI BID Recommend a trial of QID Carafate for 14 days Soft, slippery diet as tolerated. Agree with consulting neurology, hematology. Consider rheumatological workup if not already completed. Thank you for allowing us to participate in the care of this patient. Please call with any acute changes, questions or concerns. Please see addendum below with additional recommendation from my supervising physician. Supervising Physician Co-Signing Physician Notes Agree with pe and plan as documented. Patient is not very informative regarding her diagnosis. She has had a very extensive work-up with some results still pending thru [facility] and would consider folllow-up on muscle biopsy results. Agree with further plan of care as documented. History of Present Illness Reason for Consultation: dysphagia, odynophagia Requesting Physician: Eliezer Attending Physician: David Martins MD History of Present Illness 48 year old female with PMHx iron deficiency anemia, thrombocytosis (thought to be reactive to anemia), chronic lymphedema in lower legs and chronic leg ulcers, frequent admission to [facility], recently [facility] who is admitted through [facility] for the same - GI asked to evaluate of dysphagia and odynophagia. Spouse provides majority of history. Notes that for the last few days/weeks she has been having pain when swallowing , regurgitation and some sensation of food sticking when swallowing. Notes diarrhea is improving. She is not sure what has helped. Spouse agrees stool consistency and frequency is improved. Denies black or bloody stools. Regarding her recent GI work up, she had EGD and colonoscopy in January 2023, at that time was felt to have EOE on endoscopy, however esophageal biopsies showed reflux esophagitis, and duodenal bx suggestive of active chronic duodenitis w/ erosion and villous atrophy. She was advised to be on gluten free diet and come to the clinic for f/u. She declined office visit for follow-up, and instead states that she follows with a natural medicine doctor, and has been on a gluten free diet ever since then. TTG was equivocal then. EGD was scheduled for November. PPI was recommended. Repeat TTG last admission was neg Results for Celiac haplotype showed positive result for HLA-DQ 2, suggesting she has 1 of the variants associated with celiac disease, however is not per se diagnostic of Celiac as this is commonly seen in the population; genetic counseling was recommended. Stool culture was positive for yeast. EGD 01/2023: - Esophageal mucosal changes secondary to eosinophilic esophagitis. Biopsied. - Normal stomach. - Normal examined duodenum. Biopsied. Colonoscopy 01/2023: - Preparation of the colon was fair. - Diverticulosis in the sigmoid colon. - Internal hemorrhoids. - The examination was otherwise normal on direct and retroflexion views. - No specimens collected. Allergies Allergy/AdvReac Type Severity Reaction Status Date / Time Unable to Assess Allergy Unverified 10/17/23 07:17 Home Medications Medication Instructions Recorded Confirmed Type aspirin 81 mg tablet,delayed 81 mg PO DAILY 10/16/23 10/16/23 History release folic acid 1 mg tablet 1 mg PO DAILY 10/16/23 10/16/23 History Patient History Medical History (Updated 10/17/23 @ 09:52 by LEONEL Avila) Thrombocytosis Celiac disease autoimmune enteropathy Surgical History (Updated 10/17/23 @ 07:17 by Jessica Cooper) History of colonoscopy H/O esophagogastroduodenoscopy Family History (System 10/17/23 @ 07:17 by Jessica Cooper) Grandfather (Maternal) Colorectal cancer Social History (System 10/17/23 @ 07:17 by Jessica Cooper) Smoking Status: Never smoker Hx Alcohol Use: Yes Alcohol type: wine Hx Substance Use: No Preferred Language: Jordanian Terminal Gauger Required: No Beliefs That Will Affect Care: Gnosticism and Cultural Current Living Situation: Spouse Feels Safe at Home: Yes Safety Concerns: Feels Safe At This Time Assistive Devices: Denture - Upper, Denture - Lower and Glasses Review of Systems Review of Systems: All systems reviewed & are unremarkable except as noted in HPI & below Physical Exam Constitutional: WD/WN, vitals as above Respiratory: normal respiratory effort, lungs clear to auscultation Cardiovascular: Rate/Rhythm: regular rate and regular rhythm Gastrointestinal (Abdomen): normal bowel sounds, soft, nontender, no hepatosplenomegaly Skin: no rashes, warm and dry Results & Data Vital Signs (Past 12 Hours) Vital Signs Temp Pulse Pulse Resp BP Pulse Ox O2 Del Method 10/17/23 07:33 37.2 C 70 16 94/59 L 98 Room Air 10/17/23 07:11 73 10/17/23 00:41 37.3 C 81 20 96/63 L 94 Room Air 10/16/23 21:52 87 Laboratory Results 10/17/23 10/16/23 10/16/23 Range/Units 05:48 12:29 12:10 WBC (4.8-10.8) K/ul RBC (4.20-5.40) M/uL Hgb (12.0-16.0) g/dl Hct (37.0-47.0) % MCV (80.0-100.0) fL MCH (25.0-34.0) pg MCHC (32.0-36.0) g/dL RDW Std Deviation (36.4-46.3) fL RDW Coeff of Krzysztof (11.5-14.5) % Plt Count (130-400) K/uL MPV (9.4-12.4) fL Immature Gran % (Auto) % Neut % (Auto) % Lymph % (Auto) % Dodge % (Auto) % Eos % (Auto) % Baso % (Auto) % Reticulocyte % (Auto) 1.95 (0.50-2.00) % Neut # (Auto) (1.40-6.50) K/uL Lymph # (Auto) (1.20-3.40) K/uL Dodge # (Auto) (0.11-0.59) K/uL Eos # (Auto) (0.00-0.50) K/uL Baso # (Auto) (0.00-0.20) K/uL Reticulocyte # 0.080 (0.020-0.100) 10^6/uL Immature Gran # (Auto) (0.01-0.20) K/uL Polychromasia Target Cells [place] Bodies Echinocytes ESR 42 H (0-20) mm/hr PT (9.0-12.0) Seconds INR (0.9-1.1) Sodium (136-145) mmol/L Potassium (3.5-5.1) mmol/L Chloride (98-107) mmol/L Carbon Dioxide (21-32) mmol/L Anion Gap (3-11) BUN (6-23) mg/dl Creatinine (0.6-1.2) mg/dl Est Cr Clr Drug Dosing ml/min Est GFR ( Amer) ml/min Est GFR (Non-Af Amer) ml/min BUN/Creatinine Ratio (10-20) Glucose (70-99(Fasting)) mg/dl Lactate 1.4 (0.4-2.0) mmol/L Calcium (8.6-10.3) mg/dl Phosphorus (2.5-4.9) mg/dl Magnesium (1.7-2.4) mg/dl Iron < 10 L (35-150) mcg/dl Unsaturated IBC 188 (155-355) mcg/dl Transferrin 157 L (200-360) mg/dl Ferritin 27.8 (8-388) ng/ml Total Bilirubin (0.2-1.0) mg/dl AST (13-39) U/L ALT (7-52) U/L Alkaline Phosphatase (34-104) U/L Total Creatine Kinase (26-192) U/L C-Reactive Protein 2.21 H (0-0.5) mg/dl Total Protein (6.0-8.3) gm/dl Albumin (3.4-5.0) gm/dl Globulin (2.5-4.0) gm/dl Albumin/Globulin Ratio (0.9-2) Vitamin B12 (180-914) pg/ml Folate (>5.38) ng/ml Procalcitonin < 0.02 (0-0.5) ng/ml TSH (0.300-4.500) uIu/ml Free T4 0.82 (0.61-1.60) ng/dl Free T3 (2.3-4.2) pg/ml HCG, Qual (Negative) Urine Color Urine Appearance (Clear) Urine pH (4.5-7.5) Ur Specific [place] (1.000-1.030) Urine Protein (Negative) Urine Glucose (UA) (Negative) Urine Ketones (Negative) Urine Blood (Negative) Urine Nitrite (Negative) Urine Bilirubin (Negative) Urine Urobilinogen (Negative) Ur Leukocyte Esterase (Negative) Urine WBC (Auto) (0-5) /hpf Urine RBC (Auto) (0-4) /hpf U Hyaline Cast (Auto) (0-5) /lpf U Epithel Cells (Auto) (0-5) /lpf Urine Bacteria (Auto) (Negative) Lead Pending Anaplasma Smear See Comment A. phagocytophilum DNA Pending Babesia Smear See Comment Babesia microti DNA PCR Pending Lyme Disease Screen Negative (Negative) E.chaffeensis DNA (PCR) Pending Q Fever Phase I IgG Ab Pending Q Fever Phase I IgM Ab Pending Q Fever Phase II IgG Ab Pending Q Fever Phase II IgM Ab Pending Rickettsia IgG Ab Pending Rickettsia IgM Ab Pending Typhus Fever IgG Ab Pending Typhus Fever IgM Ab Pending 10/16/23 10/16/23 Range/Units 11:13 11:03 WBC 14.75 H (4.8-10.8) K/ul RBC 4.87 (4.20-5.40) M/uL Hgb 12.8 (12.0-16.0) g/dl Hct 40.4 (37.0-47.0) % MCV 83.0 (80.0-100.0) fL MCH 26.3 (25.0-34.0) pg MCHC 31.7 L (32.0-36.0) g/dL RDW Std Deviation 51.8 H (36.4-46.3) fL RDW Coeff of Krzysztof 17.5 H (11.5-14.5) % Plt Count 1255 H* (130-400) K/uL MPV 9.1 L (9.4-12.4) fL Immature Gran % (Auto) 1.7 % Neut % (Auto) 73.2 % Lymph % (Auto) 15.1 % Dodge % (Auto) 8.7 % Eos % (Auto) 0.6 % Baso % (Auto) 0.7 % Reticulocyte % (Auto) (0.50-2.00) % Neut # (Auto) 10.80 H (1.40-6.50) K/uL Lymph # (Auto) 2.22 (1.20-3.40) K/uL Dodge # (Auto) 1.29 H (0.11-0.59) K/uL Eos # (Auto) 0.09 (0.00-0.50) K/uL Baso # (Auto) 0.10 (0.00-0.20) K/uL Reticulocyte # (0.020-0.100) 10^6/uL Immature Gran # (Auto) 0.25 H (0.01-0.20) K/uL Polychromasia 1+ Target Cells 1+ [place] Bodies 1+ Echinocytes 1+ ESR (0-20) mm/hr PT 11.9 (9.0-12.0) Seconds INR 1.1 (0.9-1.1) Sodium 138 (136-145) mmol/L Potassium 3.6 (3.5-5.1) mmol/L Chloride 105 (98-107) mmol/L Carbon Dioxide 26 (21-32) mmol/L Anion Gap 7 (3-11) BUN 6 (6-23) mg/dl Creatinine 0.35 L (0.6-1.2) mg/dl Est Cr Clr Drug Dosing 142.7 ml/min Est GFR ( Amer) 149.2 ml/min Est GFR (Non-Af Amer) 128.7 ml/min BUN/Creatinine Ratio 17.1 (10-20) Glucose 88 (70-99(Fasting)) mg/dl Lactate (0.4-2.0) mmol/L Calcium 8.6 (8.6-10.3) mg/dl Phosphorus 3.4 (2.5-4.9) mg/dl Magnesium 2.0 (1.7-2.4) mg/dl Iron (35-150) mcg/dl Unsaturated IBC (155-355) mcg/dl Transferrin (200-360) mg/dl Ferritin (8-388) ng/ml Total Bilirubin 0.3 (0.2-1.0) mg/dl AST 26 (13-39) U/L ALT 20 (7-52) U/L Alkaline Phosphatase 83 (34-104) U/L Total Creatine Kinase 43 (26-192) U/L C-Reactive Protein (0-0.5) mg/dl Total Protein 6.4 (6.0-8.3) gm/dl Albumin 3.2 L (3.4-5.0) gm/dl Globulin 3.2 (2.5-4.0) gm/dl Albumin/Globulin Ratio 1.0 (0.9-2) Vitamin B12 680 (180-914) pg/ml Folate 20.86 (>5.38) ng/ml Procalcitonin (0-0.5) ng/ml TSH 0.822 (0.300-4.500) uIu/ml Free T4 (0.61-1.60) ng/dl Free T3 2.50 (2.3-4.2) pg/ml HCG, Qual Negative (Negative) Urine Color Yellow Urine Appearance Clear (Clear) Urine pH 6.5 (4.5-7.5) Ur Specific [place] 1.007 (1.000-1.030) Urine Protein Negative (Negative) Urine Glucose (UA) Negative (Negative) Urine Ketones Negative (Negative) Urine Blood Negative (Negative) Urine Nitrite Negative (Negative) Urine Bilirubin Negative (Negative) Urine Urobilinogen Negative (Negative) Ur Leukocyte Esterase 2+ H (Negative) Urine WBC (Auto) 10-30 H (0-5) /hpf Urine RBC (Auto) 0-4 (0-4) /hpf U Hyaline Cast (Auto) 0 (0-5) /lpf U Epithel Cells (Auto) 10-20 H (0-5) /lpf Urine Bacteria (Auto) 2+ H (Negative) Lead Anaplasma Smear A. phagocytophilum DNA Babesia Smear Babesia microti DNA PCR Lyme Disease Screen (Negative) E.chaffeensis DNA (PCR) Q Fever Phase I IgG Ab Q Fever Phase I IgM Ab Q Fever Phase II IgG Ab Q Fever Phase II IgM Ab Rickettsia IgG Ab Rickettsia IgM Ab Typhus Fever IgG Ab Typhus Fever IgM Ab
[2023-10-17] MEDS: NSS + 20MEQ KCL 20 MEQ/1,000 ML BAG IV SCH (09:57)
[2023-10-17] MEDS: cefTRIAXone SODIUM 1,000 MG in DEXTROSE 5 % MINI-B 50 ML IV SCH (09:58)
[2023-10-17] MEDS: IRON SUCROSE 300 MG in SODIUM CHLORIDE 0.9% 250 ML IV ONE (10:32)
[2023-10-17 11:26] LABS: Anion Gap 7 (3-11); BUN Creatinine Ratio 12.1 (10-20); Blood Urea Nitrogen 4 mg/dl (6-23); Calcium 8.3 mg/dl (8.6-10.3); Carbon Dioxide 23 mmol/L (21-32); Chloride 108 mmol/L (98-107); Creatinine Clr Calc Pharmacy 151.1 ml/min; Est GFR (African American) > 150.0 ml/min; Est GFR (Non-African American) 131.2 ml/min; Glucose 101 mg/dl (70-99(Fasting)); Iron 13 mcg/dl (35-150); Potassium 3.6 mmol/L (3.5-5.1); Sodium 138 mmol/L (136-145); Total Iron Binding Cap Calc 195 mcg/dl (250-450); Transferrin (FE) Percent Satur 7 % (15-50); Unsaturated Iron Binding Cap 182 mcg/dl (155-355)
[2023-10-17 11:51] LABS: Hematocrit (blood only) 33.9 % (37.0-47.0); Hemoglobin 11.1 g/dl (12.0-16.0); Mean Corpuscular Hemoglobin 26.4 pg (25.0-34.0); Mean Corpuscular Hgb Conc 32.7 g/dL (32.0-36.0); Mean Corpuscular Volume 80.5 fL (80.0-100.0); Mean Platelet Volume 9.3 fL (9.4-12.4); Platelet Count 1171 K/uL (130-400); RDW Coefficient of Variation 17.8 % (11.5-14.5); RDW Standard Deviation 50.9 fL (36.4-46.3); Red Blood Count 4.21 M/uL (4.20-5.40)
[2023-10-17 11:54] LABS: Basophils % (auto) 0.8 %; Eosinophils # (auto) 0.09 K/uL (0.00-0.50); Eosinophils % (auto) 0.7 %; Howell-Jolly Bodies Occasional; Immature Granulocytes # (auto) 0.17 K/uL (0.01-0.20); Immature Granulocytes % (auto) 1.3 %; Lymphocytes % (auto) 16.4 %; Monocytes # (auto) 1.13 K/uL (0.11-0.59); Monocytes % (auto) 8.8 %; Neutrophils # (auto) 9.21 K/uL (1.40-6.50)
--- NOTE | 2023-10-17 12:40 | Oncology Consultation ---
Date of Consultation October 17, 2023 Assessment & Plan (1) Thrombocytosis: (2) Iron deficiency: Plan - Had an extensive discussion with patient's . Although iron deficiency could cause thrombocytosis, she has very significant thrombocytosis which I suspect is not completely due to iron deficiency. Thrombocytosis may be a combination of iron deficiency anemia and inflammation. However, would recommend ruling out underlying hematologic malignancy with peripheral smear review, MPN mutation analysis and BCR/ABL FISH testing. If any of these tests are concerning for underlying hematologic malignancy, would recommend bone marrow biopsy. -Consider obtaining abdominal imaging to evaluate for splenomegaly -Recommend IV Venofer 200 mg daily x 3 doses for iron deficiency secondary to celiac disease Thank you for this consult. Hematology will continue following patient while in the hospital. Please feel free to call if you have any further questions History of Present Illness Reason for Consultation: Thrombocytosis, history of iron deficiency Attending Physician: David Martins MD History of Present Illness 48-year-old female with complicated medical history including history of iron deficiency anemia followed by hematology at [facility] s/p iron infusions who presented to the ER with worsening weakness. Labs revealed significantly elevated platelet count of greater than 1 million for which hematology was consulted. Per discussion with patient's , she was followed by hematology up until middle of last year and received several IV iron infusions for iron deficiency anemia thought to be due to celiac disease. He states that patient stopped following up with hematology at [facility] because she was doing a lot better. More recently, she has had decline in her performance status, fatigue and generalized weakness. indicates that she was recently admitted to [place] where she underwent lumbar puncture which he indicates was negative. Also underwent muscle biopsy with results pending. Allergies Allergy/AdvReac Type Severity Reaction Status Date / Time gluten Allergy Verified 10/17/23 14:21 Home Medications Medication Instructions Recorded Confirmed Type aspirin 81 mg tablet,delayed 81 mg PO DAILY 10/16/23 10/16/23 History release folic acid 1 mg tablet 1 mg PO DAILY 10/16/23 10/16/23 History Patient History Medical History (Updated 10/17/23 @ 09:52 by LEONEL Avila) Thrombocytosis Celiac disease autoimmune enteropathy Surgical History (Updated 10/17/23 @ 07:17 by Jessica Cooper) History of colonoscopy H/O esophagogastroduodenoscopy Family History (System 10/17/23 @ 07:17 by Jessica Cooper) Grandfather (Maternal) Colorectal cancer Social History (System 10/17/23 @ 07:17 by Jessica Cooper) Smoking Status: Never smoker Hx Alcohol Use: Yes Alcohol type: wine Hx Substance Use: No Preferred Language: Nepali Communication Ability: Impaired Account Retention Representative Required: No Beliefs That Will Affect Care: Baptist and Cultural Current Living Situation: Spouse Feels Safe at Home: Yes Safety Concerns: Feels Safe At This Time Assistive Devices: Bedside Commode and Hospital Bed Results & Data Vital Signs (Past 12 Hours) Vital Signs Temp Pulse Pulse Resp BP Pulse Ox O2 Del Method 10/17/23 11:10 37.3 C 83 16 96/63 L 94 Room Air 10/17/23 07:33 37.2 C 70 16 94/59 L 98 Room Air 10/17/23 07:11 73 10/17/23 00:41 37.3 C 81 20 96/63 L 94 Room Air
--- NOTE | 2023-10-17 15:02 | Hospitalist Progress Note ---
Date of Service October 17, 2023 Assessment & Plan (1) Celiac disease: (2) Progressive encephalopathy: (3) Proximal muscle weakness: (4) Severe protein-calorie malnutrition: (5) Glossitis: (6) Stomatitis: (7) Intermittent complete heart block: (8) Hepatomegaly: (9) Splenic atrophy: (10) Thrombocytosis: (11) Fracture of left clavicle: Plan Progressive encephalopathy Intermittent left facial droop, foot drop Proximal muscle weakness Ongoing waxing and waning deficits, foot drop Patient had extensive workup on prior hospitalizations previously Seems to be oriented currently UTI, iron deficiency likely contributing to weakness States, B12 levels normal Serology for tickborne illness pending Blood levels pending Appreciate neurology input Will likely need further workup as outpatient and follow-up with neurology UTI Urine culture growing gram-negative bacilli Blood cultures negative to date Continue Rocephin Day #2 Iron deficiency anemia Did not tolerate oral iron supplements in the past secondary to diarrhea per family Received Venofer Hematology on board Chronic left clavicular fracture Incidental finding on chest x-ray Imaging suggestive of healing distal left clavicle fracture Monitor Dysphagia Glossitis Stomatitis Known history of esophagitis Continue Protonix, Carafate per GI Soft, slippery diet Plan for repeat EGD in November Needs follow-up with GI on discharge Severe protein calorie malnutrition BMI 17 Dietitian consulted Thrombocytosis Peripheral Smear, CML work up pending Oncology consulted Intermittent Complete Heart Block Reported at [facility], declined device discussion at that time per record -Monitor Celiac Disease Folic acid deficiency secondary to malabsorption Dilated small bowel on imaging Hepatomegaly with splenic atrophy Evidence of enteritis, infectious or inflammatory, with diffuse small bowel wall thickening. The small bowel is moderately distended with fluid. Fecal A. Jejunum, biopsy: Minimally active chronic jejunitis with mild villous blunting (see comment). B. Duodenum, biopsy: Minimally active chronic duodenitis with focal mild villous blunting (see comment). C. Stomach, biopsy: Gastric oxyntic mucosa with focal mild chronic gastritis. Negative for dysplasia, H. pylori (immunostain) and intestinal metaplasia. Diagnosed 01/2023, EGD 09/11 with chronic duodenitis,tissue transglutaminase IgA negative (reports strict gluten free adherence) Small bowel enteritis noted to be present on imaging from Aug and Sep. Folate 5.3 at OSH, on folic supplementation Completed treatment for candidiasis 09/13, noted stool yeast previously GI on board Will obtain stool studies if patient's develops diarrhea Bony Sclerosis, Spinal hemangiomas on PET scan January 2023 PET scan 01/2023, lucent lesions without avidity Check Vit D levels BLE wounds No biopsies performed, wound cultures as OP Started on Bactrim, wounds healed, multiple scarring DVT Px: Lovenox SQ CODE STATUS Full code Admission and Anticipated Discharge Date Admission Date: October 16, 2023 Subjective Patient is seen and examined at bedside States feeling weak and tired Poor historian Discussed with patient's family at bedside Denies any chest pain, dyspnea, dysuria, hematuria No other complaints Review of Systems Review of Systems: All systems reviewed & are unremarkable except as noted in Subjective Physical Exam Physical Exam: Physical Exam: Vitals signs as noted above General Appearance: Thin, frail, chronically appearing, no apparent distress Head: normocephalic, Atraumatic Eyes: normal inspection, EOMI,+Ptosis Neck: supple, Trachea midline Respiratory/Chest: Normal breath sounds, CTA, No accessory muscle use Cardiovascular: S1, S2, No murmur Abdomen/GI:Soft, Non tender, Bowel sounds present Extremities/Musculoskeletal:normal inspection, no edema Neurologic/Psych:AAOX3, motor 3/5 extremities Skin: normal color, warm , Healed scars Results & Data Results & Data Vital Signs (Past 12 Hours) Vital Signs Temp Pulse Pulse Resp BP Pulse Ox O2 Del Method 10/17/23 11:10 37.3 C 83 16 96/63 L 94 Room Air 10/17/23 07:33 37.2 C 70 16 94/59 L 98 Room Air 10/17/23 07:11 73 Laboratory Results Short CBC 10/17/23 Range/Units 10:19 WBC 12.80 H (4.8-10.8) K/ul Hgb 11.1 L (12.0-16.0) g/dl Hct 33.9 L (37.0-47.0) % Plt Count 1171 H* (130-400) K/uL BMP 10/17/23 10:19 Sodium 138 Potassium 3.6 Chloride 108 H Carbon Dioxide 23 BUN 4 L Creatinine 0.33 L Glucose 101 H Calcium 8.3 L (11) Fracture of left clavicle Encounter type: initial encounter Clavicle location: lateral end Fracture type: closed Fracture alignment: nondisplaced Qualified Code(s): S42.035A - Nondisplaced fracture of lateral end of left clavicle, initial encounter for closed fracture
[2023-10-17] MEDS: SUCRALFATE 1 GM TAB PO SCH (17:19)
[2023-10-17] MEDS ORDERED: ENOXAPARIN INJ 30 MG/0.3 ML SYR SQ SCH (18:00)
[2023-10-17] MEDS: PANTOprazole 40 MG TAB PO SCH (21:45)
[2023-10-17] MEDS: ALBUMIN 25% 25 GM/100 ML VIAL IV ONE (22:28)
[2023-10-17 22:52] LABS: Base Excess ABG -2.1 mEq/L (-9-1.8); HCO3 ABG 21 mmol/L (19-24); Oxygen Saturation ABG 97.2 % (90-95); PCO2 ABG 31 mmHg (35-46); PO2 ABG 82 mmHg (80-95); pH ABG 7.44 (7.35-7.45)
[2023-10-17 23:01] LABS: Allen Test Pos (Pos)
[2023-10-17] MEDS: CEFEPIME 2,000 MG in SYRINGE 0 ML IV SCH (23:18)
[2023-10-17] MEDS: PANTOprazole 40 MG in SYRINGE 0 ML IV SCH (23:19)
[2023-10-18 01:22] LABS: Partial Thromboplastin Ratio 1.3; Partial Thromboplastin Time 36 Seconds (21-31)
[2023-10-18 05:03] LABS: Anion Gap 6 (3-11); BUN Creatinine Ratio 15.4 (10-20); Blood Urea Nitrogen 4 mg/dl (6-23); Calcium 8.3 mg/dl (8.6-10.3); Carbon Dioxide 22 mmol/L (21-32); Chloride 109 mmol/L (98-107); Creatinine Clr Calc Pharmacy 191.7 ml/min; Est GFR (African American) > 150.0 ml/min; Est GFR (Non-African American) 141.9 ml/min; Glucose 98 mg/dl (70-99(Fasting)); Magnesium 1.9 mg/dl (1.7-2.4); Potassium 4.1 mmol/L (3.5-5.1); Sodium 137 mmol/L (136-145)
[2023-10-18] MEDS: PIPERACILLIN/TAZOBACTAM 4.5 GM in DEXTROSE 5% MINI-B 100 ML IV SCH (05:08)
[2023-10-18 05:21] LABS: Hemoglobin 11.1 g/dl (12.0-16.0); Mean Corpuscular Hemoglobin 26.8 pg (25.0-34.0); Mean Corpuscular Hgb Conc 32.6 g/dL (32.0-36.0); Mean Corpuscular Volume 82.1 fL (80.0-100.0); RDW Coefficient of Variation 17.3 % (11.5-14.5); RDW Standard Deviation 51.3 fL (36.4-46.3); Red Blood Count 4.14 M/uL (4.20-5.40); White Blood Count 19.43 K/ul (4.8-10.8)
[2023-10-18 05:33] LABS: Mean Platelet Volume 8.9 fL (9.4-12.4); Platelet Count 1087 K/uL (130-400)
--- NOTE | 2023-10-18 06:57 | Communication Note ---
Date of Service: October 17, 2023 Late entry Patient noted to be tachypneic as per flume ride operator rate 46 as per RN with some belly breathing. Patient lethargic which is useful for patient as per . Patient noted to have moist nonproductive cough as per RN. AP Tachypnea with nonproductive cough Increased lethargy Possible aspiration pneumonitis Rule out PE Zosyn in place of ceftriaxone Rx for now CT chest PE study (patient counseled regarding importance of urgent study)
--- NOTE | 2023-10-18 07:43 | XRay Report ---
XR chest 1V portable CLINICAL HISTORY: tachypnea TECHNIQUE: Single frontal radiograph of the chest was obtained. Comparison: Comparison is made to chest radiograph 10/16/2023 FINDINGS: No lines and tubes are seen. The cardiomediastinal silhouette is normal. The lungs are clear. No evid ence of pleural effusion or pneumothorax. IMPRESSION: No acute chest disease. ACT 112: Negative or not required by law. Electronically signed by: Tommie Coy M.D. 10/18/2023 7:42 AM
[2023-10-18] MEDS: OPTIRAY 320 125ml IV ONE (09:27)
--- NOTE | 2023-10-18 09:46 | CT Scan Report ---
CT head/brain wo con CLINICAL HISTORY: lethargy Technique: Contiguous axial CT images of the head were acquired from the base of the skull to the christopher arnulfo without intravenous contrast administration. Images were viewed in brain, [facility] . Automated dose lowering techniques and/or adjustment according to patient size were utilized for this exam. Comparison: None available at the time of this dictation. Findings: The ventricles, basal cisterns, and cerebral sulci are normal. There is no acute intracranial hemorrh age or evidence of acute territorial infarction. Neither mass effect, shift of the midline structures , nor abnormal extra-axial fluid collections are shown. Imaged portions of the paranasal sinuses and mastoid air cells are clear. The orbits appear normal. There are no acute fractures of the calvaria or scalp swelling. Impression: No acute intracranial hemorrhage, no evidence of acute territorial infarction or other acute intracra nial disease process. ACT 112: Negative or not required by law. Electronically signed by: Tommie Coy M.D. 10/18/2023 9:43 AM
[2023-10-18] MEDS: ERGOCALCIFEROL 1250 MCG (50,000 UNITS) CAP PO SCH (09:48)
[2023-10-18] MEDS: IRON SUCROSE 300 MG in SODIUM CHLORIDE 0.9% 250 ML IV SCH (09:48)
--- NOTE | 2023-10-18 10:09 | CT Scan Report ---
CT ANGIOGRAPHY OF THE CHEST, PULMONARY EMBOLUS PROTOCOL CLINICAL HISTORY: Tachypnea. COMPARISON STUDY: Chest radiograph October 17, 2023. TECHNIQUE: Following IV administration of 112 mL of Optiray, helical axial images of the chest were o btained utilizing the pulmonary embolus protocol. Maximal intensity projections and sagittal and cor onal reformats were viewed on an independent 3D workstation. IV contrast was administered without co mplication. Automated exposure control was utilized for the study. A dose lowering technique was ut ilized adhering to the principles of ALARA. CT DOSE: 861.6 mGy.cm FINDINGS: There are small segmental pulmonary emboli within the right middle lobe. No central pulmon andrés embolus is present. Size of the heart is normal. There is no pericardial effusion. There is no th oracic aortic dissection. Trace bilateral pleural effusions are present. Note is made of a 4.2 cm rig ht lower lobe airspace opacity, new since abdominal CT of September 22, 2023. Central airways are falk nt. Mild increased sclerosis of visualized skeletal structures is incidentally noted. 2.1 cm lucent l esion within the T9 vertebral body is indeterminate although probably benign. IMPRESSION: 1. Small segmental pulmonary emboli within the right middle lobe. 2. 4.2 cm right lower lobe airspace opacity. This may reflect pneumonia. A pulmonary infarct could ap pear similar although no associated right lower lobe pulmonary embolus identified. ACT 112: Negative or not required by law. Electronically signed by: Blake Ames M.D. 10/18/2023 10:08 AM
[2023-10-18] MEDS ORDERED: Heparin IV Adult Wt-Based Standard *NO* INITIAL Bolus Protocol IV STA (11:57)
[2023-10-18] MEDS: HEPARIN SODIUM/DEXTROSE 25,000 UNITS/500 ML BAG IV SCH (12:51)
[2023-10-18 13:07] LABS: Hematocrit (blood only) 32.8 % (37.0-47.0); Hemoglobin 10.8 g/dl (12.0-16.0); Mean Corpuscular Hemoglobin 26.7 pg (25.0-34.0); Mean Corpuscular Hgb Conc 32.9 g/dL (32.0-36.0); Mean Platelet Volume 9.2 fL (9.4-12.4); Nucleated RBC # (auto) 0.02 K/uL (0.00-0.12); Nucleated RBC % (auto) 0.1 %; Platelet Count 1078 K/uL (130-400); RDW Coefficient of Variation 17.8 % (11.5-14.5); RDW Standard Deviation 51.6 fL (36.4-46.3); Red Blood Count 4.05 M/uL (4.20-5.40); White Blood Count 15.25 K/ul (4.8-10.8)
[2023-10-18 13:25] LABS: Basophils % (auto) 0.7 %; Echinocytes 1+; Eosinophils # (auto) 0.14 K/uL (0.00-0.50); Eosinophils % (auto) 0.9 %; Howell-Jolly Bodies 1+; Immature Granulocytes # (auto) 0.16 K/uL (0.01-0.20); Lymphocytes # (auto) 2.11 K/uL (1.20-3.40); Lymphocytes % (auto) 13.8 %; Monocytes # (auto) 1.39 K/uL (0.11-0.59); Monocytes % (auto) 9.1 %; Neutrophils # (auto) 11.35 K/uL (1.40-6.50); Neutrophils % (auto) 74.5 %; Polychromasia 1+; Target Cells 1+
--- NOTE | 2023-10-18 14:26 | Ultrasound Report ---
US venous doppler LE BI CLINICAL HISTORY: pulmonary emboli TECHNIQUE: Bilateral lower extremity real-time compression venous ultrasound with Color Doppler imagi ng. Utilizing real-time ultrasonic imaging multiple real time high-resolution ultrasonic images with compression and noncompression maneuvers of the deep venous system in addition to color doppler imagi ng were performed from the common femoral vein through the proximal calf veins. COMPARISON: None available at the time of this dictation. FINDINGS/IMPRESSION: Occlusive thrombus is seen in one of the right posterior tibial veins and peroneal veins. There is al so occlusion of both left posterior tibial and peroneal veins. No superficial venous thrombosis is id entified. ACT 112: Negative or not required by law. Electronically signed by: Tommie Coy M.D. 10/18/2023 2:25 PM
--- NOTE | 2023-10-18 14:51 | Fluoroscopy Report ---
FL video swallow CLINICAL HISTORY: r/o aspiration TECHNIQUE: Video fluoroscopy of the pharyngeal region was performed as barium mixtures of varying con sistencies were administered to the patient by the speech pathologist. A formal esophagram was not pe rformed. Comparison: None available at the time of this dictation. FINDINGS: Total fluoroscopy time: 1.36 minutes. Radiation dose: 5.5 mGy. The patient swallowed the different barium consistencies without difficulty. Aspiration was seen with thin and nectar consistency liquids. Pooling of barium was noted in the bilateral piriform sinuses a nd valleculae. IMPRESSION: Aspiration is seen as above Please see the speech pathology report for further details. ACT 112: Negative or not required by law. Electronically signed by: Tommie Coy M.D. 10/18/2023 2:49 PM
--- NOTE | 2023-10-18 15:17 | Hospitalist Progress Note ---
Date of Service October 18, 2023 Assessment & Plan (1) Celiac disease: (2) Progressive encephalopathy: (3) Proximal muscle weakness: (4) Severe protein-calorie malnutrition: (5) Glossitis: (6) Stomatitis: (7) Intermittent complete heart block: (8) Hepatomegaly: (9) Splenic atrophy: (10) Thrombocytosis: (11) Fracture of left clavicle: Plan In short, Ms. Guevara is a 48 year old woman with past medical history notable for celiac disease controlled on gluten free diet who is admitted for continued weakness after ongoing workup for progressive neurologic symptoms have been ongoing. Extensive admissions (three this year). Patient with history of celiac disease diagnosed in 01/2023 and has followed a strict gluten free diet. Patient experienced lower extremity wounds that appeared and treated with multiple courses of antibiotics. She was admitted to [facility] on 08/18/2023-08/26/2023 and once again on 09/06/2023- 09/12/2023 for weakness and diagnosed with PMR. Patient presented to [place] for further evaluation of encephalopathy and weakness. 09/13: MRI brain on was notable for 3mm focus of diffusion restriction in posterior limb of left internal capsule, ?demyelinating lesion v small cortical infarct. -MRI C-spine negative CTA head and neck 09/14 with questionable stenosis of A1 segment on left ICA Neurology with concerns for systemic vasculitis with SIGNAL PROCESSING ENGINEER involvement as well as MS Work up included: -CPK and aldolase 5.7 (09/14) negative -ISABELLE 24 (09/22) LP: CSF WBC 9, Glucose 52, Protein 55, Monocytes 12, VDRL negative, HSV PCR negative, paraneoplastic negative, oligoclonal bands negative Autoimmune w/u: RF, anti CCP, QUINN, C3/C4, ati-vitale, anti-PRODUCT CONTROL AND LOGISTICS ANALYST, anti-SCL, anti- SSA/SSB, antiDSantibody, MUSK antibodies, anti JO1, ANCA, antiSMA, anticentromere, hepatitis panel, HIV, anticardiolipin antibody, Myasthenia antibodies negative, tick panel negative, cryoglobulin negative 09/16: ECHO: 60-65% 09/17: MRI brain on reveaed stable perfusion abnormality. 09/18: Stroke neurology consulted on noted concer for systemic vasculitis 09/19:Cerebral angiogram with no acute findings effectively making SIGNAL PROCESSING ENGINEER vasculitis unlikely per Rheumatology -Rheumatology recommended prednisone 1mg/kg with OP taper and planned OP Rheum follow up, no sural nerve biopsy recommended 09/20: left thigh muscle biopsy (RESULTS not sent with chart review) Patient did not continue steroids, nor follow up with Rheumatology. Neurology evaluated patient and does not feel there is anything that localizes from a SIGNAL PROCESSING ENGINEER standpoint. #Acute pulmonary emboli #Bilateral lower extremity DVT -Heparin drip Plan to transition to Xarelto #aspiration pneumonitis -Transition to Zosyn Swallow study suggestive of pneumonitis #Progressive encephalopathy #Intermittent left facial droop, foot drop #Proximal muscle weakness Ongoing waxing and waning deficits, foot drop Patient had extensive workup on prior hospitalizations previously Seems to be oriented currently UTI, iron deficiency likely contributing to weakness Folate, B12 levels normal Serology for tickborne illness negative Heavy metal poisoning levels pending Appreciate neurology input Will likely need further workup as outpatient and follow-up with neurology #Acute uncomplicated cystitis Urine culture growing gram-negative bacilli Blood cultures negative to date Continue Rocephin Day #2; transitioned to zosyn 2/2 aspiration event #Iron deficiency anemia Did not tolerate oral iron supplements in the past secondary to diarrhea per family Received Venofer Hematology on board #Chronic left clavicular fracture Incidental finding on chest x-ray Imaging suggestive of healing distal left clavicle fracture Monitor #Dysphagia #Glossitis #Stomatitis #Known history of esophagitis Continue Protonix, Carafate per GI Soft, slippery diet B complex started Aspiration precautions Plan for repeat EGD in November Needs follow-up with GI on discharge #Severe protein calorie malnutrition BMI 17 Dietitian consulted #Thrombocytosis Peripheral Smear, CML work up pending Oncology consulted #Intermittent Complete Heart Block Reported at [facility], declined device discussion at that time per record -Monitor on tele #Celiac Disease #Folic acid deficiency secondary to malabsorption #Dilated small bowel on imaging #Hepatomegaly with splenic atrophy Evidence of enteritis, infectious or inflammatory, with diffuse small bowel wall thickening. The small bowel is moderately distended with fluid. A. Jejunum, biopsy: Minimally active chronic jejunitis with mild villous blunting (see comment). B. Duodenum, biopsy: Minimally active chronic duodenitis with focal mild villous blunting (see comment). C. Stomach, biopsy: Gastric oxyntic mucosa with focal mild chronic gastritis. Negative for dysplasia, H. pylori (immunostain) and intestinal metaplasia. Diagnosed 01/2023, EGD 09/11 with chronic duodenitis,tissue transglutaminase IgA negative (reports strict gluten free adherence) Small bowel enteritis noted to be present on imaging from Aug and Sep. Folate 5.3 at OSH, on folic supplementation Completed treatment for candidiasis 09/13, noted stool yeast previously GI on board -Recommended PPI bid, carafate 14 days QID Will obtain stool studies if patient's develops diarrhea #Severe vitamin D deficiency #Bony Sclerosis, Spinal hemangiomas on PET scan January 2023 PET scan 01/2023, lucent lesions without avidity Vit <D <7.0 Start Vit D supplementation #BLE wounds, clinically diagnosed as pyoderma gangrenosum No biopsies performed, wound cultures as OP Started on Bactrim, wounds healed, multiple scarring DVT Px: Heparin CODE STATUS Full code Admission and Anticipated Discharge Date Admission Date: October 16, 2023 Subjective Weakness overnight, lethargy. Gravity Prospecting Observer evaluated, broadended Abx and ordered CT chest/head This morning, remains minimally communicative, however, eating/feeding self. at bedside and reports that this is the most he has seen her eat in days Patient denies chest pain, dyspnea, or other acute concerns Physical Exam Constitutional: WD/WN, vitals as above Respiratory: decreased bilaterally 2/2 effort Cardiovascular: RRR, no murmur, no edema Musculoskeletal: no lower extremity edema noted Results & Data Results & Data Vital Signs (Past 12 Hours) Vital Signs Temp Pulse Resp BP Pulse Ox O2 Del Method 10/18/23 12:05 36.9 C 76 16 93/61 L 96 Room Air 10/18/23 11:34 36.9 C 78 20 91/59 L 96 Room Air 10/18/23 10:54 Room Air 10/18/23 10:00 37 C 79 16 112/76 97 Room Air 10/18/23 07:40 36.5 C 76 18 91/61 L 95 Room Air 10/18/23 03:45 37.2 C 86 18 94/51 L 94 Room Air Laboratory Results Short CBC 10/18/23 10/18/23 Range/Units 04:20 12:30 WBC 19.43 H 15.25 H (4.8-10.8) K/ul Hgb 11.1 L 10.8 L (12.0-16.0) g/dl Hct 34.0 L 32.8 L (37.0-47.0) % Plt Count 1087 H* 1078 H* (130-400) K/uL BMP 10/18/23 04:20 Sodium 137 Potassium 4.1 Chloride 109 H Carbon Dioxide 22 BUN 4 L Creatinine 0.26 L Glucose 98 Calcium 8.3 L Diagnostic Findings Chest X-Ray 10/17/23 22:04 XR chest 1V portable CLINICAL HISTORY: tachypnea TECHNIQUE: Single frontal radiograph of the chest was obtained. Comparison: Comparison is made to chest radiograph 10/16/2023 FINDINGS: No lines and tubes are seen. The cardiomediastinal silhouette is normal. The lungs are clear. No evidence of pleural effusion or pneumothorax. IMPRESSION: No acute chest disease. ACT 112: Negative or not required by law. Electronically signed by: Tommie Coy M.D. 10/18/2023 7:42 AM Chest CTA 10/17/23 23:23 CT ANGIOGRAPHY OF THE CHEST, PULMONARY EMBOLUS PROTOCOL CLINICAL HISTORY: Tachypnea. COMPARISON STUDY: Chest radiograph October 17, 2023. TECHNIQUE: Following IV administration of 112 mL of Optiray, helical axial images of the chest were obtained utilizing the pulmonary embolus protocol. Maximal intensity projections and sagittal and coronal reformats were viewed on an independent 3D workstation. IV contrast was administered without complication. Automated exposure control was utilized for the study. A dose lowering technique was utilized adhering to the principles of ALARA. CT DOSE: 861.6 mGy.cm FINDINGS: There are small segmental pulmonary emboli within the right middle lobe. No central pulmonary embolus is present. Size of the heart is normal. There is no pericardial effusion. There is no thoracic aortic dissection. Trace bilateral pleural effusions are present. Note is made of a 4.2 cm right lower lobe airspace opacity, new since abdominal CT of September 22, 2023. Central airways are patent. Mild increased sclerosis of visualized skeletal structures is incidentally noted. 2.1 cm lucent lesion within the T9 vertebral body is indeterminate although probably benign. IMPRESSION: 1. Small segmental pulmonary emboli within the right middle lobe. 2. 4.2 cm right lower lobe airspace opacity. This may reflect pneumonia. A pulmonary infarct could appear similar although no associated right lower lobe pulmonary embolus identified. ACT 112: Negative or not required by law. Electronically signed by: Blake Ames M.D. 10/18/2023 10:[address] 10/17/23 23:24 CT head/brain wo con CLINICAL HISTORY: lethargy Technique: Contiguous axial CT images of the head were acquired from the base of the skull to the vertex without intravenous contrast administration. Images were viewed in brain, subdural and bone windows. Automated dose lowering techniques and/or adjustment according to patient size were utilized for this exam. Comparison: None available at the time of this dictation. Findings: The ventricles, basal cisterns, and cerebral sulci are normal. There is no acute intracranial hemorrhage or evidence of acute territorial infarction. Neither mass effect, shift of the midline structures, nor abnormal extra-axial fluid collections are shown. Imaged portions of the paranasal sinuses and mastoid air cells are clear. The orbits appear normal. There are no acute fractures of the calvaria or scalp swelling. Impression: No acute intracranial hemorrhage, no evidence of acute territorial infarction or other acute intracranial disease process. ACT 112: Negative or not required by law. Electronically signed by: Tommie Coy M.D. 10/18/2023 9:43 AM Venous Doppler Study 10/18/23 11:34 US venous doppler LE BI CLINICAL HISTORY: pulmonary emboli TECHNIQUE: Bilateral lower extremity real-time compression venous ultrasound with Color Doppler imaging. Utilizing real-time ultrasonic imaging multiple real time high-resolution ultrasonic images with compression and noncompression maneuvers of the deep venous system in addition to color doppler imaging were performed from the common femoral vein through the proximal calf veins. COMPARISON: None available at the time of this dictation. FINDINGS/IMPRESSION: Occlusive thrombus is seen in one of the right posterior tibial veins and peroneal veins. There is also occlusion of both left posterior tibial and peroneal veins. No superficial venous thrombosis is identified. ACT 112: Negative or not required by law. Electronically signed by: Tommie Coy M.D. 10/18/2023 2:25 PM Videofluoroscopic Swallow 10/18/23 14:15 FL video swallow CLINICAL HISTORY: r/o aspiration TECHNIQUE: Video fluoroscopy of the pharyngeal region was performed as barium mixtures of varying consistencies were administered to the patient by the speech pathologist. A formal esophagram was not performed. Comparison: None available at the time of this dictation. FINDINGS: Total fluoroscopy time: 1.36 minutes. Radiation dose: 5.5 mGy. The patient swallowed the different barium consistencies without difficulty. Aspiration was seen with thin and nectar consistency liquids. Pooling of barium was noted in the bilateral piriform sinuses and valleculae. IMPRESSION: Aspiration is seen as above Please see the speech pathology report for further details. ACT 112: Negative or not required by law. Electronically signed by: Tommie Coy M.D. 10/18/2023 2:49 PM Medications Administered Home Medications Medication Instructions Recorded Confirmed Last Taken aspirin 81 mg tablet,delayed 81 mg PO DAILY 10/16/23 10/16/23 Unknown release folic acid 1 mg tablet 1 mg PO DAILY 10/16/23 10/16/23 Unknown Active Medications Generic Name Dose Route Start Last Admin Trade Name Freq PRN Reason Stop Dose Admin Aspirin 81 mg 10/17/23 09:00 10/18/23 09:48 Aspirin 81 Mg Ectab PO 11/16/23 08:59 81 mg DAILY TAYLA Administration Ergocalciferol 1,250 mcg 10/18/23 07:45 10/18/23 09:48 Ergocalciferol 1250 Mcg (50,000 Units) Cap PO 11/17/23 07:44 1,250 mcg We@0900 TAYLA Administration Folic Acid 1 mg 10/17/23 09:00 10/18/23 09:48 Folic Acid 1 Mg Tab PO 11/16/23 08:59 1 mg DAILY TAYLA Administration Iron Sucrose 300 mg/ Sodium 265 mls @ 176.667 mls/hr 10/18/23 09:00 10/18/23 12:58 Chloride IV 10/19/23 10:29 Infused DAILY TAYLA Infusion Pantoprazole Sodium 40 mg/ 10 mls @ 5 mls/min 10/17/23 22:15 10/18/23 09:49 Syringe IV 11/16/23 22:14 5 mls/min BID TAYLA Administration Piperacillin Sod/Tazobactam 100 mls @ 25 mls/hr 10/18/23 06:00 10/18/23 14:56 Sod 4.5 gm/ Dextrose IV 10/25/23 05:59 25 mls/hr Q8H TAYLA Administration Protocol Heparin Sodium/Dextrose 25,000 units in 500 mls @ 15 mls/hr 10/18/23 12:15 10/18/23 14:51 Heparin Sodium/Dextrose IV 11/17/23 12:14 750 units/hr .Q24H TAYLA 15 mls/hr Administration Protocol 750 UNITS/HR Pantoprazole Sodium 40 mg 10/17/23 21:00 10/17/23 21:45 Pantoprazole 40 Mg Tab PO 11/16/23 20:59 Not Given BID TAYLA Sucralfate 1 gm 10/17/23 17:00 10/18/23 14:51 Sucralfate 1 Gm Tab PO 10/31/23 16:59 1 gm QID TAYLA Administration Vitamin B Complex 1 tab 10/17/23 09:00 10/18/23 09:49 Vitamin B Complex Tab PO 11/16/23 08:59 1 tab QAM TAYLA Administration (11) Fracture of left clavicle Encounter type: initial encounter Clavicle location: lateral end Fracture type: closed Fracture alignment: nondisplaced Qualified Code(s): S42.035A - Nondisplaced fracture of lateral end of left clavicle, initial encounter for closed fracture
[2023-10-18 21:14] LABS: ANTI-Xa, UFH(UnfractionatedHep < 0.10 IU/ml (0.3-0.7)
[2023-10-18] MEDS: HEPARIN SOD (PORCINE) 1000 UNIT/ML IV ONE (22:26)
[2023-10-19 06:11] LABS: Hematocrit (blood only) 36.8 % (37.0-47.0); Hemoglobin 11.7 g/dl (12.0-16.0); Mean Corpuscular Hemoglobin 26.2 pg (25.0-34.0); Mean Corpuscular Hgb Conc 31.8 g/dL (32.0-36.0); Mean Corpuscular Volume 82.5 fL (80.0-100.0); Mean Platelet Volume 9.2 fL (9.4-12.4); Nucleated RBC # (auto) 0.05 K/uL (0.00-0.12); Nucleated RBC % (auto) 0.3 %; Platelet Count 1139 K/uL (130-400); RDW Coefficient of Variation 17.9 % (11.5-14.5); RDW Standard Deviation 52.2 fL (36.4-46.3); Red Blood Count 4.46 M/uL (4.20-5.40)
[2023-10-19 06:16] LABS: Anion Gap 7 (3-11); BUN Creatinine Ratio 17.6 (10-20); Blood Urea Nitrogen 6 mg/dl (6-23); Calcium 8.6 mg/dl (8.6-10.3); Carbon Dioxide 24 mmol/L (21-32); Chloride 106 mmol/L (98-107); Creatinine Clr Calc Pharmacy 134.2 ml/min; Est GFR (African American) > 150.0 ml/min; Est GFR (Non-African American) 129.9 ml/min; Glucose 90 mg/dl (70-99(Fasting)); Potassium 3.9 mmol/L (3.5-5.1); Sodium 137 mmol/L (136-145)
[2023-10-19 06:26] LABS: ANTI-Xa, UFH(UnfractionatedHep 0.14 IU/ml (0.3-0.7)
[2023-10-19] MEDS: HEPARIN SOD (PORCINE) 1000 UNIT/ML IV ONE (06:59)
[2023-10-19 12:09] LABS: Ehrlichia chaff DNA Bld Negative (Negative)
[2023-10-19 12:58] LABS: Influenza A virus by PCR Negative (Neg); Influenza B virus by PCR Negative (Neg); RSV by PCR Negative (Neg); SARS CoV2 RNA(COVID-19) Ceph NEGATIVE (Negative)
[2023-10-19 14:16] LABS: ANTI-Xa, UFH(UnfractionatedHep 0.29 IU/ml (0.3-0.7)
--- NOTE | 2023-10-19 14:54 | Hospitalist Progress Note ---
Date of Service October 19, 2023 Assessment & Plan (1) Celiac disease: (2) Progressive encephalopathy: (3) Proximal muscle weakness: (4) Severe protein-calorie malnutrition: (5) Glossitis: (6) Stomatitis: (7) Intermittent complete heart block: (8) Hepatomegaly: (9) Splenic atrophy: (10) Thrombocytosis: (11) Fracture of left clavicle: Plan In short, Ms. Guevara is a 48 year old woman with past medical history notable for celiac disease controlled on gluten free diet who is admitted for continued weakness after ongoing workup for progressive neurologic symptoms have been ongoing. Extensive admissions (three this year). Patient with history of celiac disease diagnosed in 01/2023 and has followed a strict gluten free diet. Patient experienced lower extremity wounds that appeared and treated with multiple courses of antibiotics. She was admitted to [facility] on 08/18/2023-08/26/2023 and once again on 09/06/2023- 09/12/2023 for weakness and diagnosed with PMR. Patient presented to [place] for further evaluation of encephalopathy and weakness. 09/13: MRI brain on was notable for 3mm focus of diffusion restriction in posterior limb of left internal capsule, ?demyelinating lesion v small cortical infarct. -MRI C-spine negative CTA head and neck 09/14 with questionable stenosis of A1 segment on left ICA Neurology with concerns for systemic vasculitis with PRACTICAL NURSING FACULTY involvement as well as MS Work up included: -CPK and aldolase 5.7 (09/14) negative -ISABELLE 24 (09/22) LP: CSF WBC 9, Glucose 52, Protein 55, Monocytes 12, VDRL negative, HSV PCR negative, paraneoplastic negative, oligoclonal bands negative Autoimmune w/u: RF, anti CCP, QUINN, C3/C4, ati-vitale, anti-MLT, anti-SCL, anti- SSA/SSB, antiDSantibody, MUSK antibodies, anti JO1, ANCA, antiSMA, anticentromere, hepatitis panel, HIV, anticardiolipin antibody, Myasthenia antibodies negative, tick panel negative, cryoglobulin negative 09/16: ECHO: 60-65% 09/17: MRI brain on reveaed stable perfusion abnormality. 09/18: Stroke neurology consulted on noted concer for systemic vasculitis 09/19:Cerebral angiogram with no acute findings effectively making PRACTICAL NURSING FACULTY vasculitis unlikely per Rheumatology -Rheumatology recommended prednisone 1mg/kg with OP taper and planned OP Rheum follow up, no sural nerve biopsy recommended 09/20: left thigh muscle biopsy -Results: No signs of myositis, "secondary changes" Patient did not continue steroids as prescription was sent to pharmacy that was reportedly close, and family reports not quite understanding the initial discharge plan. Neurology evaluated patient and does not feel there is anything that localizes from a PRACTICAL NURSING FACULTY standpoint. Transfer to tertiary center was initiated as patient is a 48 year old woman with notable and progressive decline. Given patient was full independent in July 2023, further investigation of possible inherited/genetic, intensive rheumatologic work up, hematologic evaluation and close specialist follow up that cannot be coordinated at this facility. #Acute pulmonary emboli #Bilateral lower extremity DVT -Heparin drip at this time in case further investigations are pursued at [place] ( etc) Plan to transition to Xarelto (three month supply arranged for i) #aspiration pneumonitis -Transition to Zosyn on 10/17 (antibiotics since 10/15) Swallow study suggestive of aspiration, CT chest with c/f pneumonitis, now on room air #Progressive encephalopathy #Intermittent left facial droop, foot drop #Proximal muscle weakness Ongoing waxing and waning deficits, foot drop, facial droop Patient had extensive workup on prior hospitalizations previously Seems to be oriented currently UTI, iron deficiency likely contributing to weakness Folate, B12 levels normal Serology for tickborne illness negative Heavy metal poisoning levels negative Appreciate neurology input -Recommend tertiary center #Acute uncomplicated cystitis Urine culture growing e coli, klebsiella oxytoca pansensitive Blood cultures negative to date Rocephin started on 10/15. transitioned to zosyn 10/17 2/2 aspiration event , day 4 of abx #Iron deficiency anemia Did not tolerate oral iron supplements in the past secondary to diarrhea per family Received Venofer x 3 (200mg) Hematology on board #Chronic left clavicular fracture Incidental finding on chest x-ray Imaging suggestive of healing distal left clavicle fracture Monitor #Dysphagia #Glossitis #Stomatitis #Known history of esophagitis Continue Protonix, Carafate per GI Soft, slippery diet B complex started Aspiration precautions Plan for repeat EGD in November Needs follow-up with GI on discharge #Severe protein calorie malnutrition BMI 17 Dietitian consulted #Thrombocytosis Peripheral Smear, CML work up pending Oncology consulted #Intermittent Complete Heart Block Reported at [facility], declined device discussion at that time per record -Monitor on tele #Celiac Disease #Folic acid deficiency secondary to malabsorption #Dilated small bowel on imaging #Hepatomegaly with splenic atrophy Evidence of enteritis, infectious or inflammatory, with diffuse small bowel wall thickening. The small bowel is moderately distended with fluid. A. Jejunum, biopsy: Minimally active chronic jejunitis with mild villous blunting (see comment). B. Duodenum, biopsy: Minimally active chronic duodenitis with focal mild villous blunting (see comment). C. Stomach, biopsy: Gastric oxyntic mucosa with focal mild chronic gastritis. Negative for dysplasia, H. pylori (immunostain) and intestinal metaplasia. Diagnosed 01/2023, EGD 09/11 with chronic duodenitis,tissue transglutaminase IgA negative (reports strict gluten free adherence) Small bowel enteritis noted to be present on imaging from Aug and Sep. Folate 5.3 at OSH, on folic supplementation Completed treatment for candidiasis 09/13, noted stool yeast previously GI on board -Recommended PPI bid, carafate 14 days QID Will obtain stool studies if patient's develops diarrhea #Severe vitamin D deficiency #Bony Sclerosis, Spinal hemangiomas on PET scan January 2023 PET scan 01/2023, lucent lesions without avidity Vit <D <7.0 Start Vit D supplementation #BLE wounds, clinically diagnosed as pyoderma gangrenosum No biopsies performed, wound cultures as OP Started on Bactrim as an op. wounds healed, multiple scarred areas on legs DVT Px: Heparin CODE STATUS Full code Admission and Anticipated Discharge Date Admission Date: October 16, 2023 Subjective no acute events overnight Remains lethargic, difficulty eating banana--will attempt to raise to mouth but discoordinated movements notable, unable to properly "aim" and successful eat banana Denies any acute concerns; voice is hoarse, strained to speak Physical Exam Constitutional: frail, thin woman, difficulty holding head up for periods of time Respiratory: normal respiratory effort, lungs clear to auscultation Cardiovascular: RRR, no murmur, no edema Gastrointestinal (Abdomen): normal bowel sounds, soft, nontender, no hepatosplenomegaly Skin: multiple healed areas/scars scattered on bilateral lower extremities Neurologic: lethargic, eye lids appear "heavy" for patient, difficult to coordinate activities like eating Results & Data Results & Data Vital Signs (Past 12 Hours) Vital Signs Temp Pulse Pulse Resp BP Pulse Ox O2 Del Method 10/19/23 12:45 Room Air 10/19/23 11:38 37.5 C 85 16 98/65 L 95 Room Air 10/19/23 11:20 36.9 C 81 18 100/66 95 Room Air 10/19/23 10:27 37.1 C 88 16 99/67 L 98 Room Air 10/19/23 09:50 36.7 C 92 H 18 96 Room Air 10/19/23 08:10 37.3 C 74 16 90/63 L 96 Room Air 10/19/23 07:14 69 10/19/23 03:52 36.3 C L 74 18 94/61 L 94 Room Air Laboratory Results Short CBC 10/19/23 Range/Units 05:04 WBC 17.60 H (4.8-10.8) K/ul Hgb 11.7 L (12.0-16.0) g/dl Hct 36.8 L (37.0-47.0) % Plt Count 1139 H* (130-400) K/uL BMP 10/19/23 05:04 Sodium 137 Potassium 3.9 Chloride 106 Carbon Dioxide 24 BUN 6 Creatinine 0.34 L Glucose 90 Calcium 8.6 Medications Administered Home Medications Medication Instructions Recorded Confirmed Last Taken aspirin 81 mg tablet,delayed 81 mg PO DAILY 10/16/23 10/16/23 Unknown release folic acid 1 mg tablet 1 mg PO DAILY 10/16/23 10/16/23 Unknown Active Medications Generic Name Dose Route Start Last Admin Trade Name [place] PRN Reason Stop Dose Admin Aspirin 81 mg 10/17/23 09:00 10/19/23 09:36 Aspirin 81 Mg Ectab PO 11/16/23 08:59 81 mg DAILY TAYLA Administration Ergocalciferol 1,250 mcg 10/18/23 07:45 10/18/23 09:48 Ergocalciferol 1250 Mcg (50,000 Units) Cap PO 11/17/23 07:44 1,250 mcg We@0900 TAYLA Administration Folic Acid 1 mg 10/17/23 09:00 10/19/23 09:36 Folic Acid 1 Mg Tab PO 11/16/23 08:59 1 mg DAILY TAYLA Administration Pantoprazole Sodium 40 mg/ 10 mls @ 5 mls/min 10/17/23 22:15 10/19/23 09:36 Syringe IV 11/16/23 22:14 5 mls/min BID TAYLA Administration Piperacillin Sod/Tazobactam 100 mls @ 25 mls/hr 10/18/23 06:00 10/19/23 10:14 Sod 4.5 gm/ Dextrose IV 10/25/23 05:59 Infused Q8H TAYLA Infusion Protocol Heparin Sodium/Dextrose 25,000 units in 500 mls @ 20 mls/hr 10/18/23 12:15 10/19/23 07:00 Heparin Sodium/Dextrose IV 11/17/23 12:14 1,000 units/hr .Q24H TAYLA 20 mls/hr Titration Protocol 1,000 UNITS/HR Pantoprazole Sodium 40 mg 10/17/23 21:00 10/17/23 21:45 Pantoprazole 40 Mg Tab PO 11/16/23 20:59 Not Given BID TAYLA Sucralfate 1 gm 10/17/23 17:00 10/19/23 09:37 Sucralfate 1 Gm Tab PO 10/31/23 16:59 1 gm QID TAYLA Administration Vitamin B Complex 1 tab 10/17/23 09:00 10/19/23 09:37 Vitamin B Complex Tab PO 11/16/23 08:59 1 tab QAM TAYLA Administration (11) Fracture of left clavicle Encounter type: initial encounter Clavicle location: lateral end Fracture type: closed Fracture alignment: nondisplaced Qualified Code(s): S42.035A - Nondisplaced fracture of lateral end of left clavicle, initial encounter for closed fracture
[2023-10-20 01:11] LABS: ANTI-Xa, UFH(UnfractionatedHep 0.22 IU/ml (0.3-0.7)
--- NOTE | 2023-10-20 07:39 | Hospitalist Progress Note ---
Date of Service October 20, 2023 Assessment & Plan (1) Celiac disease: (2) Progressive encephalopathy: (3) Proximal muscle weakness: (4) Severe protein-calorie malnutrition: (5) Glossitis: (6) Stomatitis: (7) Intermittent complete heart block: (8) Hepatomegaly: (9) Splenic atrophy: (10) Thrombocytosis: (11) Fracture of left clavicle: Plan In short, Ms. Guevara is a 48 year old woman with past medical history notable for celiac disease controlled on gluten free diet who is admitted for continued weakness after ongoing workup for progressive neurologic symptoms have been ongoing. Extensive admissions (three this year). Patient with history of celiac disease diagnosed in 01/2023 and has followed a strict gluten free diet. Patient experienced lower extremity wounds that appeared and treated with multiple courses of antibiotics. She was admitted to [facility] on 08/18/2023-08/26/2023 and once again on 09/06/2023- 09/12/2023 for weakness and diagnosed with PMR. Patient presented to [place] for further evaluation of encephalopathy and weakness. 09/13: MRI brain on was notable for 3mm focus of diffusion restriction in posterior limb of left internal capsule, ?demyelinating lesion v small cortical infarct. -MRI C-spine negative CTA head and neck 09/14 with questionable stenosis of A1 segment on left ICA Neurology with concerns for systemic vasculitis with ELECTRICAL HIGH TENSION TESTER involvement as well as MS Work up included: -CPK and aldolase 5.7 (09/14) negative -ISABELLE 24 (09/22) LP: CSF WBC 9, Glucose 52, Protein 55, Monocytes 12, VDRL negative, HSV PCR negative, paraneoplastic negative, oligoclonal bands negative Autoimmune w/u: RF, anti CCP, QUINN, C3/C4, ati-vitale, anti-ORNAMENTER, anti-SCL, anti- SSA/SSB, antiDSantibody, MUSK antibodies, anti JO1, ANCA, antiSMA, anticentromere, hepatitis panel, HIV, anticardiolipin antibody, Myasthenia antibodies negative, tick panel negative, cryoglobulin negative 09/16: ECHO: 60-65% 09/17: MRI brain on reveaed stable perfusion abnormality. 09/18: Stroke neurology consulted on noted concer for systemic vasculitis 09/19:Cerebral angiogram with no acute findings effectively making ELECTRICAL HIGH TENSION TESTER vasculitis unlikely per Rheumatology -Rheumatology recommended prednisone 1mg/kg with OP taper and planned OP Rheum follow up, no sural nerve biopsy recommended 09/20: left thigh muscle biopsy -Results: No signs of myositis, "secondary changes" Patient did not continue steroids as prescription was sent to pharmacy that was reportedly close, and family reports not quite understanding the initial discharge plan. Neurology evaluated patient and does not feel there is anything that localizes from a ELECTRICAL HIGH TENSION TESTER standpoint. Transfer to tertiary center was initiated as patient is a 48 year old woman with notable and progressive decline. Given patient was full independent in July 2023, further investigation of possible inherited/genetic, intensive rheumatologic work up, hematologic evaluation and close specialist follow up that cannot be coordinated at this facility. Suspect longstanding, untreated celiac with complicated by hyposplenism with resultant thrombocytosis/leukocytosis. Spleen likely atrophied prior to adherence to gluten free diet reported since 12/2022. 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 Once patient recovers from UTI, will need S pneumoniae and HiB vaccinations. #Acute pulmonary emboli #Bilateral lower extremity DVT -Heparin drip at this time in case further investigations are pursued at [place] ( etc) Plan to transition to Xarelto (three month supply arranged for ) #aspiration pneumonitis -Transition to Zosyn on 10/17 (antibiotics since 10/15) Swallow study suggestive of aspiration, CT chest with c/f pneumonitis, now on room air #Progressive encephalopathy #Intermittent left facial droop, foot drop #Proximal muscle weakness Ongoing waxing and waning deficits, foot drop, facial droop Patient had extensive workup on prior hospitalizations previously Seems to be oriented currently UTI, iron deficiency likely contributing to weakness Folate, B12 levels normal Serology for tickborne illness negative Heavy metal poisoning levels negative Appreciate neurology input -Recommend tertiary center #Acute uncomplicated cystitis Urine culture growing e coli, klebsiella oxytoca pansensitive Blood cultures negative to date Rocephin started on 10/15. transitioned to zosyn 10/17 2/2 aspiration event , day 4 of abx #Iron deficiency anemia Did not tolerate oral iron supplements in the past secondary to diarrhea per family Received Venofer x 3 (200mg) Hematology on board #Chronic left clavicular fracture Incidental finding on chest x-ray Imaging suggestive of healing distal left clavicle fracture Monitor #Dysphagia #Glossitis #Stomatitis #Known history of esophagitis Continue Protonix, Carafate per GI Soft, slippery diet B complex started Aspiration precautions Plan for repeat EGD in November Needs follow-up with GI on discharge #Severe protein calorie malnutrition BMI 17 Dietitian consulted #Thrombocytosis Peripheral Smear, CML work up pending Oncology consulted #Intermittent Complete Heart Block Reported at [facility], declined device discussion at that time per record -Monitor on tele #Celiac Disease c/b spleen atrophy #Folic acid deficiency secondary to malabsorption #Dilated small bowel on imaging #Hepatomegaly with splenic atrophy Evidence of enteritis, infectious or inflammatory, with diffuse small bowel wall thickening. The small bowel is moderately distended with fluid. A. Jejunum, biopsy: Minimally active chronic jejunitis with mild villous blunting (see comment). B. Duodenum, biopsy: Minimally active chronic duodenitis with focal mild villous blunting (see comment). C. Stomach, biopsy: Gastric oxyntic mucosa with focal mild chronic gastritis. Negative for dysplasia, H. pylori (immunostain) and intestinal metaplasia. Diagnosed 01/2023, EGD 09/11 with chronic duodenitis,tissue transglutaminase IgA negative (reports strict gluten free adherence) Small bowel enteritis noted to be present on imaging from Aug and Sep. Folate 5.3 at OSH, on folic supplementation Completed treatment for candidiasis 09/13, noted stool yeast previously GI on board -Recommended PPI bid, carafate 14 days QID Will obtain stool studies if patient's develops diarrhea #Severe vitamin D deficiency #Bony Sclerosis, Spinal hemangiomas on PET scan January 2023 PET scan 01/2023, lucent lesions without avidity Vit <D <7.0 Start Vit D supplementation #BLE wounds, clinically diagnosed as pyoderma gangrenosum No biopsies performed, wound cultures as OP Started on Bactrim as an op. wounds healed, multiple scarred areas on legs DVT Px: Heparin CODE STATUS Full code Admission and Anticipated Discharge Date Admission Date: October 16, 2023 Results & Data Results & Data Vital Signs (Past 12 Hours) Vital Signs Temp Pulse Pulse Resp BP Pulse Ox O2 Del Method 10/20/23 07:19 75 10/20/23 03:12 37.5 C 87 20 101/67 97 Room Air 10/19/23 22:55 36.7 C 96 H 20 100/64 94 Room Air 10/19/23 21:57 92 H 10/19/23 21:24 Room Air (11) Fracture of left clavicle Encounter type: initial encounter Clavicle location: lateral end Fracture type: closed Fracture alignment: nondisplaced Qualified Code(s): S42.035A - Nondisplaced fracture of lateral end of left clavicle, initial encounter for closed fracture
[2023-10-20 08:00] LABS: Hematocrit (blood only) 37.2 % (37.0-47.0); Hemoglobin 12.1 g/dl (12.0-16.0); Mean Corpuscular Hemoglobin 26.8 pg (25.0-34.0); Mean Corpuscular Hgb Conc 32.5 g/dL (32.0-36.0); Mean Corpuscular Volume 82.3 fL (80.0-100.0); Mean Platelet Volume 9.2 fL (9.4-12.4); Nucleated RBC # (auto) 0.09 K/uL (0.00-0.12); Nucleated RBC % (auto) 0.5 %; Platelet Count 1070 K/uL (130-400); RDW Coefficient of Variation 18.4 % (11.5-14.5); RDW Standard Deviation 51.8 fL (36.4-46.3); Red Blood Count 4.52 M/uL (4.20-5.40); White Blood Count 18.62 K/ul (4.8-10.8)
[2023-10-20 08:14] LABS: Anion Gap 6 (3-11); BUN Creatinine Ratio 16.7 (10-20); Blood Urea Nitrogen 4 mg/dl (6-23); Calcium 8.5 mg/dl (8.6-10.3); Carbon Dioxide 24 mmol/L (21-32); Chloride 106 mmol/L (98-107); Creatinine Clr Calc Pharmacy 233.1 ml/min; Est GFR (African American) > 150.0 ml/min; Est GFR (Non-African American) 145.7 ml/min; Glucose 102 mg/dl (70-99(Fasting)); Immunoglobulin A 235.5 mg/dl (70-400); Immunoglobulin G 976.6 mg/dl (635-1741); Immunoglobulin M 61.3 mg/dl (45-281); Phosphorus 3.1 mg/dl (2.5-4.9); Potassium 3.8 mmol/L (3.5-5.1); Sodium 136 mmol/L (136-145)
[2023-10-20 08:19] LABS: ANTI-Xa, UFH(UnfractionatedHep 0.19 IU/ml (0.3-0.7)
[2023-10-20] MEDS: HEPARIN SOD (PORCINE) 1000 UNIT/ML IV ONE (10:45)
--- NOTE | 2023-10-20 15:38 | Discharge Summary ---
Discharge Summary Date of Service October 20, 2023 Notes For Next Care Provider Medication Changes From Visit -Heparin drip -3 month supply of Xarelto (with DVT dosing) supplied to Admission HPI Per Admitting Provider This is a 48 y/o female with celiac disease, hx ANASTASIA, thrombocytosis who presents today with ongoing weakness for which she has undergone an extensive work-up. Her chart was reviewed in-depth including records from 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 Pt's provides the majority of the history today. Seen by hematology last summer for severe iron deficiency anemia with a Hgb of 5.7 on 12/19/22. Treated with transfusion on 12/20/22, IV Monoferric 300 mg weekly x 4 weeks, Vitron-C. Anemia and fatigue seemed to be improving. Underwent EGD and colonoscopy which showed probable celiac disease so started on a gluten-free diet and has continued to follow this since then. This was thought to be the underlying etiology of the anemia. She was also noted to have lytic lesions in thoracic and lumbar spine - underwent work-up for multiple myeloma including a PET scan which showed no increased uptake. 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 Has also noted wounds present for over a year - treated with multiple courses of antibiotics and steroids. Intermittent issues with LE edema - treated with f urosemide by family doc. The edema seemed to contribute to the wounds. These have since healed. Has also noted vocal changes since having a URI - this seems to wax and wane. On Jul 07, pt's reports that she had increased weakness to the point of being unable to get into the buggy. This weakness seemed particularly pronounced in the LE. She continues to have trouble lifting her legs, foot drop at times. Weakness may wax and wane but has not ever resolved. She often requires assist of 1-2 to ambulate. Her notes that her right hands seems to curl inwards and has made eating difficult. They have noted some upper extremity weakness but not as pronounced as the LE weakness. Symptoms seem somewhat cyclical. Her family notes that she may be difficult to wake up at times, not responding verbally to questions. Stools have been intermittently formed - last year had some diarrhea and used probiotics for a time but this has now improved. She was tried on setraline but her reports this made her worse so he stopped it. Also took a matcha drink but also seemed to make her worse so they stopped it. She was admitted in [place] in Jul 2023 - noted to have leukocytosis, leg wounds were infected but this had improved at time of discharge with treatment. No source of weakness identified. Then admitted to [facility] 08/18-08/26/23 for progressive weakness. Underwent extensive work-up without clear etiology identified. She was noted to have intermittent complete heart block and was seen by cardiology but apparently was not interested in potential PPM. She was recommended to have a Zio monitor as an outpatient but it does not appear this was done. Readmitted to [facility] 09/06-09/12/23 for same complaint> Her LE wounds were improving. She was evaluated by GI for ongoing diarrhea and malnutrition and underwent small bowel enteroscopy. Discharged home and presented to [place] the next day. Admitted to [place] 09/13-09/22 - had spinal tap and muscle biopsy but family doesn't have the results yet. Had an abnormality on brain MRI so pt had an angiogram but family unsure of results. Did not get the scripts for medications that were sent at discharge because the pharmacy was closed. The reports that he was also concerned about pt being on these medications. She was on methylprednisolone and then on prednisone during that admission but didn't take it when got home (recommended d/c dose of 30 mg BID). concerned about her being on steroids, specifically the potential for leukocytosis worsening. After discharge from [place], he continued with the recommended wound care and notes healing with closure of the LE wounds within two weeks of being discharged. Prior Work-Up CT Chest/Abd/Pel 12/19/22 - IMPRESSION: 1. Lucent lesions at T9, T13, and L3 as described above concerning for osteolytic metastases or multiple myeloma. 2. Lucent lesion with slight ill-defined margins the T9 vertebral body slightly eccentric to the right measuring 1.7 x 1.9 x 1.7 cm. A smaller similar lesion is identified at the left posterolateral aspect of the T13 vertebral body measuring 0.9 x 1.0 x 1.1 cm. A 0.7 cm lucent lesion is also present at the left aspect of the L3 vertebral body. IMPRESSION: 1. Distended but not dilated contrast and water filled small bowel measuring up to 2.9 cm without an obvious transition point, likely adynamic ileus. 2. Distended but not dilated air-filled colon from the cecum to the splenic flexure with [id number] layering fatty stool concerning for bloating and malabsorption. 3. Lucent lesions at T9, T13, and L3 with ill-defined margins described on the same-day chest CT report. Lucent lesion with thin sclerotic margin at the left greater trochanter measuring 1.2 x 1.3 x 1.5 cm which appears benign. 4. Normal appendix. 5. Additional nonacute/incidental findings as described above. Serum Free Light Chains 01/09/23 - Component Ref Range & Units 9 mo ago [place] Free Light Chains, Serum 3.30 - 19.40 mg/L 45.50High Lambda Free Light Chains, Serum 5.71 - 26.30 mg/L 37.14High [place] Lambda Free Light Chains Ratio 0.26 - 1.65 1.23 Serum Immunofixation 01/09/23 - no monoclonal gammopathy Colonoscopy 01/13/23 - fair prep of the colon, sigmoid diverticulosis, internal hemorrhoids, o/w normal; no specimens collected EGD 01/13/23 - esophageal mucosal changes secondary to eosinophilic esophagitis, normal stomach and examined duodenum. Duodenal biopsy - active chronic duodenitis with erosion and villous atrophy Esophagus biopsy - esophagitis w/ features most c/w reflux esophagitis, no intraepithelial eosinophilia identified Urine Immunofixation, Bence Cespedes Protein, 24 Hour Urine - urine protein 5 mg/dL, small abnormality in kappa Blood Smear 01/23/23 - Impression: Prominent microcytic anemia and prominent thrombocytosis consistent with iron deficiency anemia PET Scan 01/20/23 - IMPRESSION: 1. Lucent lesions in the spine are without associated activity, likely representing vertebral body hemangiomas. 2. Fluid distended small bowel with a degree of jejunoileal fold reversal, as well as multiple prominent mesenteric lymph nodes, including one with low attention cavitation. This constellation of findings can be seen with Celiac disease, noting question of celiac disease on recent duodenal biopsy and equivocal serology. CT Head 08/18/23 - No acute intracranial abnormality CT Chest 08/19/23 - No acute thoracic abnormality CT Abd/pel 08/19/23 - IMPRESSION: 1. Fluid-filled small and large bowel. Correlate with any history of diarrheal illness. No significant bowel wall thickening. 2. Mild mesenteric lymphadenopathy and mesenteric fat stranding overall similar to prior exam on 12/19/2022. Findings could be related to mild enteritis. 3. Findings concerning for possible pelvic venous insufficiency, correlate with any history of chronic pelvic pain. Bilateral Venous Duplex LE 08/21/23 - no acute DVT either LE SPEP 08/20/23 - Component Ref Range & Units Normal/Abnormal Normal Normal Protein 6.0 - 8.3 g/dL 5.6Low Albumin 3.30 - 4.40 g/dL 2.36Low Alpha-1 Globulin 0.10 - 0.30 g/dL 0.32High Alpha-2 Globulin 0.60 - 1.00 g/dL 1.11High Beta-Globulin 0.80 - 1.30 g/dL 0.90 Gamma-Globulin 0.70 - 1.70 g/dL 0.91 Electrophoresis Interpretation No paraprotein detected. Serum Free Light Chains 08/20/23 - Component Ref Range & Units 1 mo ago [place] Free Light Chains, Serum 3.30 - 19.40 mg/L 31.58High Lambda Free Light Chains, Serum 5.71 - 26.30 mg/L 38.47High [place] Lambda Free Light Chains Ratio 0.26 - 1.65 0.82 Immunoglobulin Quantitative 08/20/23 - Component Ref Range & Units 1 mo ago IgG 700 - 1,600 mg/dL 915 IgA 70 - 400 mg/dL 315 IgM 40 - 230 mg/dL 61 MyGenvar Myeloproliferative Panel 08/21/23 - No BCR-ABL1 fusion or clinical relevant mutation in CALR, CSF3R, JAK2 or MPL genes is detected. Lyme Disease Antibody Screen 09/06/23 - negative CT Head/Brain 09/06/23 - no acute intracranial abnormality CT C-spine 09/06/23 - no acute findings Obstruction series 09/06/23 - nonobstructive bowel gas pattern XR Shoulder (left) 09/06/23 - no evidence of acute fracture or subluxation RUQ U/S 09/06/23 - IMPRESSION: 1. Nonspecific diffuse borderline gallbladder wall thickening measuring 3-4 mm, may be due to incomplete distension. 2. Small gallbladder polyps measuring up to [address] Abd/Pel 09/06/23 - IMPRESSION: Evidence of enteritis, infectious or inflammatory, with diffuse small bowel wall thickening. The small bowel is moderately distended with fluid. Small Bowel Enteroscopy 09/11/23 - normal esophagus, normal stomach, normal duodenal bulb and second portion of the duodenum, normal examined jejunum Jejunum - minimally active chronic jejunitis with mild villous blunting Duodenum - minimally active chronic duodenitis with focal mild villous blunting Stomach - gastric oxyntic mucosa w/ focal mild chronic gastritis, negative for dysplasia, H. pylori, and intestinal metaplasia MRI Cervical Spine 09/13/23 - unremarkable Lumbar Puncture 09/14/23 - CSF negative for malignant cells, scattered lymphocytes and monocytes, rare neutrophils present Glucose 52, Protein 55 (H), Lymphocytes 88 (H), Monocytes 12 (L), Total nucleated cells 9 (H), RBCs 1 (H) A1c 09/19/23 = 5.9 CT Abd/Pel 09/22/23 - enlarged liver measuring 19 cm craniocaudal dimension, atrophic spleen measuring 4x1.6x3.9 cm, 2 indeterminate hypoattenuating densities within the pancreatic head/uncinate process (DDx pancreatic cyst, psuedocyst or IPMN - consider MRI), multiple fluid-filled distended SB loops demonstrating gradual transition to nondilated distal ileum with no oral contrast in the distal ileum or cecum (developing SBO or diffuse SB ileus?), nonspecific diffuse bony sclerosis of the visualized inferior thoracic, lumbar, and sacral spines RUQ U/S 09/22/23 - no abnormality in the RUQ, spleen is atrophied and not well- visualized Dr. Dwayne Holbrook [phone] (provider who cared for pt initially in [place]) Principal Dx & Hospital Course #1 = Principal Diagnosis (1) Celiac disease: (2) Progressive encephalopathy: (3) Proximal muscle weakness: (4) Severe protein-calorie malnutrition: (5) Glossitis: (6) Stomatitis: (7) Intermittent complete heart block: (8) Hepatomegaly: (9) Splenic atrophy: (10) Thrombocytosis: (11) Fracture of left clavicle: Plan In short, Ms. Guevara is a 48 year old woman with past medical history notable for celiac disease controlled on gluten free diet who is admitted for continued weakness after ongoing workup for progressive neurologic symptoms have been ongoing. Extensive admissions (three this year). Patient with history of celiac disease diagnosed in 01/2023 and has followed a strict gluten free diet. Patient experienced lower extremity wounds that appeared and treated with multiple courses of antibiotics. She was admitted to [facility] on 08/18/2023-08/26/2023 and once again on 09/06/2023- 09/12/2023 for weakness and diagnosed with PMR. Patient presented to [place] for further evaluation of encephalopathy and weakness. 09/13: MRI brain on was notable for 3mm focus of diffusion restriction in posterior limb of left internal capsule, ?demyelinating lesion v small cortical infarct. -MRI C-spine negative CTA head and neck 09/14 with questionable stenosis of A1 segment on left ICA Neurology with concerns for systemic vasculitis with DANCING TEACHER involvement as well as MS Work up included: -CPK and aldolase 5.7 (09/14) negative -ISABELLE 24 (09/22) LP: CSF WBC 9, Glucose 52, Protein 55, Monocytes 12, VDRL negative, HSV PCR negative, paraneoplastic negative, oligoclonal bands negative Autoimmune w/u: RF, anti CCP, QUINN, C3/C4, ati-vitale, anti-PASSENGER COACH DRIVER, anti-SCL, anti- SSA/SSB, antiDSantibody, MUSK antibodies, anti JO1, ANCA, antiSMA, anticentromere, hepatitis panel, HIV, anticardiolipin antibody, Myasthenia antibodies negative, tick panel negative, cryoglobulin negative 09/16: ECHO: 60-65% 09/17: MRI brain on reveaed stable perfusion abnormality. 09/18: Stroke neurology consulted on noted concer for systemic vasculitis 09/19:Cerebral angiogram with no acute findings effectively making DANCING TEACHER vasculitis unlikely per Rheumatology -Rheumatology recommended prednisone 1mg/kg with OP taper and planned OP Rheum follow up, no sural nerve biopsy recommended 09/20: left thigh muscle biopsy -Results: No signs of myositis, "secondary changes" Patient did not continue steroids as prescription was sent to pharmacy that was reportedly close, and family reports not quite understanding the initial discharge plan. Neurology evaluated patient and does not feel there is anything that localizes from a DANCING TEACHER standpoint. Transfer to tertiary center was initiated as patient is a 48 year old woman with notable and progressive decline. Given patient was full independent in July 2023, further investigation of possible inherited/genetic, intensive rheumatologic work up, hematologic evaluation and close specialist follow up that cannot be coordinated at this facility. Suspect longstanding, untreated celiac with complicated by hyposplenism with resultant thrombocytosis/leukocytosis. Spleen likely atrophied prior to adherence to gluten free diet reported since 12/2022. 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 Once patient recovers from UTI, will need S pneumoniae and HiB vaccinations. #Acute pulmonary emboli #Bilateral lower extremity DVT -Heparin drip at this time in case further investigations are pursued at [place] ( etc) Plan to transition to Xarelto (three month supply arranged for [facility]) #aspiration pneumonitis -Transition to Zosyn on 10/17 (antibiotics since 10/15) Swallow study suggestive of aspiration, CT chest with c/f pneumonitis, now on room air #Progressive encephalopathy #Intermittent left facial droop, foot drop #Proximal muscle weakness Ongoing waxing and waning deficits, foot drop, facial droop Patient had extensive workup on prior hospitalizations previously Seems to be oriented currently UTI, iron deficiency likely contributing to weakness Folate, B12 levels normal Serology for tickborne illness negative Heavy metal poisoning levels negative Appreciate neurology input -Recommend tertiary center #Acute uncomplicated cystitis Urine culture growing e coli, klebsiella oxytoca pansensitive Blood cultures negative to date Rocephin started on 10/15. transitioned to zosyn 10/17 2/2 aspiration event , day 4 of abx #Iron deficiency anemia Did not tolerate oral iron supplements in the past secondary to diarrhea per family Received Venofer x 3 (200mg) Hematology on board #Chronic left clavicular fracture Incidental finding on chest x-ray Imaging suggestive of healing distal left clavicle fracture Monitor #Dysphagia #Glossitis #Stomatitis #Known history of esophagitis Continue Protonix, Carafate per GI Soft, slippery diet B complex started Aspiration precautions Plan for repeat EGD in November Needs follow-up with GI on discharge #Severe protein calorie malnutrition BMI 17 Dietitian consulted #Thrombocytosis Peripheral Smear, CML work up pending Oncology consulted #Intermittent Complete Heart Block Reported at [facility], declined device discussion at that time per record -Monitor on tele #Celiac Disease c/b spleen atrophy #Folic acid deficiency secondary to malabsorption #Dilated small bowel on imaging #Hepatomegaly with splenic atrophy Evidence of enteritis, infectious or inflammatory, with diffuse small bowel wall thickening. The small bowel is moderately distended with fluid. A. Jejunum, biopsy: Minimally active chronic jejunitis with mild villous blunting (see comment). B. Duodenum, biopsy: Minimally active chronic duodenitis with focal mild villous blunting (see comment). C. Stomach, biopsy: Gastric oxyntic mucosa with focal mild chronic gastritis. Negative for dysplasia, H. pylori (immunostain) and intestinal metaplasia. Diagnosed 01/2023, EGD 09/11 with chronic duodenitis,tissue transglutaminase IgA negative (reports strict gluten free adherence) Small bowel enteritis noted to be present on imaging from Aug and Sep. Folate 5.3 at OSH, on folic supplementation Completed treatment for candidiasis 09/13, noted stool yeast previously GI on board -Recommended PPI bid, carafate 14 days QID Will obtain stool studies if patient's develops diarrhea #Severe vitamin D deficiency #Bony Sclerosis, Spinal hemangiomas on PET scan January 2023 PET scan 01/2023, lucent lesions without avidity Vit <D <7.0 Start Vit D supplementation #BLE wounds, clinically diagnosed as pyoderma gangrenosum No biopsies performed, wound cultures as OP Started on Bactrim as an op. wounds healed, multiple scarred areas on legs Heparin continued given ? if facility will pursue LP or invasive testing Discharge Exam Constitutional weak, frail woman, difficulty opening eyes, lethargic Respiratory normal respiratory effort, lungs clear to auscultation Cardiovascular RRR, no murmur, no edema Gastrointestinal (Abdomen) soft, mild distention, BS+ in all quadrants Musculoskeletal notable muscle wasting in all extremities, Updated Medication List Medication Instructions Recorded Confirmed Type aspirin 81 mg tablet,delayed 81 mg PO DAILY 10/16/23 10/16/23 History release folic acid 1 mg tablet 1 mg PO DAILY 10/16/23 10/16/23 History ergocalciferol (vitamin D2) 1,250 1,250 mcg PO We@0900 #30 caps 10/19/23 Rx mcg (50,000 unit) capsule pantoprazole 40 mg tablet,delayed 40 mg PO BID 30 days #60 tabs 10/19/23 Rx release sucralfate 1 gram tablet 1 g PO QID 12 days #48 tabs 10/19/23 Rx vitamin B complex (Vitamins B 1 cap PO QAM 30 days #30 caps 10/19/23 Rx Complex capsule) Hospital Stay Data Consultations 10/16/23 14:09 ED Decision to Admit Stat 10/16/23 15:53 Consult Neurology Routine 10/16/23 16:50 Consult Gastroenterology Routine Consult Hematology Routine 10/18/23 12:02 HIM [Consult Health Information Management] Routine Diagnostic Imagining Performed 10/17/23 23:23 CT angio chest PE protocol Stat 10/17/23 23:24 CT head/brain wo con Stat 10/18/23 11:34 US venous doppler LE BI Routine 10/18/23 14:15 FL video swallow Routine Pending Results Patient Have Any Pending Studies at Discharge: No Discharge Instructions Given to Patient (Per Discharging Provider) In short, Ms. Guevara is a 48 year old woman with past medical history notable for celiac disease controlled on gluten free diet who is admitted for continued weakness after ongoing workup for progressive neurologic symptoms have been ongoing. Extensive admissions (three this year). Patient with history of celiac disease diagnosed in 01/2023 and has followed a strict gluten free diet. Patient experienced lower extremity wounds that appea red and treated with multiple courses of antibiotics. She was admitted to [facility] on 08/18/2023-08/26/2023 and once again on 09/06/2023- 09/12/2023 for weakness and diagnosed with PMR. Patient presented to [place] for further evaluation of encephalopathy and weakness. 09/13: MRI brain on was notable for 3mm focus of diffusion restriction in posterior limb of left internal capsule, ?demyelinating lesion v small cortical infarct. -MRI C-spine negative CTA head and neck 09/14 with questionable stenosis of A1 segment on left ICA Neurology with concerns for systemic vasculitis with DANCING TEACHER involvement as well as MS Work up included: -CPK and aldolase 5.7 (09/14) negative -ISABELLE 24 (09/22) LP: CSF WBC 9, Glucose 52, Protein 55, Monocytes 12, VDRL negative, HSV PCR negative, paraneoplastic negative, oligoclonal bands negative Autoimmune w/u: RF, anti CCP, QUINN, C3/C4, ati-vitale, anti-PASSENGER COACH DRIVER, anti-SCL, anti- SSA/SSB, antiDSantibody, MUSK antibodies, anti JO1, ANCA, antiSMA, anticentromere, hepatitis panel, HIV, anticardiolipin antibody, Myasthenia antibodies negative, tick panel negative, cryoglobulin negative 09/16: ECHO: 60-65% 09/17: MRI brain on reveaed stable perfusion abnormality. 09/18: Stroke neurology consulted on noted concer for systemic vasculitis 09/19:Cerebral angiogram with no acute findings effectively making DANCING TEACHER vasculitis unlikely per Rheumatology -Rheumatology recommended prednisone 1mg/kg with OP taper and planned OP Rheum follow up, no sural nerve biopsy recommended 09/20: left thigh muscle biopsy -Results: No signs of myositis, "secondary changes" Patient did not continue steroids as prescription was sent to pharmacy that was reportedly close, and family reports not quite understanding the initial discharge plan. Neurology evaluated patient and does not feel there is anything that localizes from a DANCING TEACHER standpoint. Transfer to tertiary center was initiated as patient is a 48 year old woman with notable and progressive decline. Given patient was full independent in July 2023, further investigation of possible inherited/genetic, intensive rheumatologic work up, hematologic evaluation and close specialist follow up that cannot be coordinated at this facility. #Acute pulmonary emboli #Bilateral lower extremity DVT -Heparin drip at this time in case further investigations are pursued at [place] ( etc) Plan to transition to Xarelto ([facility]) #aspiration pneumonitis -Transition to Zosyn on 10/17 (antibiotics since 10/15) Swallow study suggestive of aspiration, CT chest with c/f pneumonitis, now on room air #Progressive encephalopathy #Intermittent left facial droop, foot drop #Proximal muscle weakness Ongoing waxing and waning deficits, foot drop, facial droop Patient had extensive workup on prior hospitalizations previously Seems to be oriented currently UTI, iron deficiency likely contributing to weakness Folate, B12 levels normal Serology for tickborne illness negative Heavy metal poisoning levels negative Appreciate neurology input -Recommend tertiary center #Acute uncomplicated cystitis Urine culture growing e coli, klebsiella oxytoca pansensitive Blood cultures negative to date Rocephin started on 10/15. transitioned to zosyn 10/17 2/2 aspiration event , day 4 of abx #Iron deficiency anemia Did not tolerate oral iron supplements in the past secondary to diarrhea per family Received Venofer x 3 (200mg) Hematology on board #Chronic left clavicular fracture Incidental finding on chest x-ray Imaging suggestive of healing distal left clavicle fracture Monitor #Dysphagia #Glossitis #Stomatitis #Known history of esophagitis Continue Protonix, Carafate per GI Soft, slippery diet B complex started Aspiration precautions Plan for repeat EGD in November Needs follow-up with GI on discharge #Severe protein calorie malnutrition BMI 17 Dietitian consulted #Thrombocytosis Peripheral Smear, CML work up pending Oncology consulted #Intermittent Complete Heart Block Reported at [facility], declined device discussion at that time per record -Monitor on tele #Celiac Disease #Folic acid deficiency secondary to malabsorption #Dilated small bowel on imaging #Hepatomegaly with splenic atrophy Evidence of enteritis, infectious or inflammatory, with diffuse small bowel wall thickening. The small bowel is moderately distended with fluid. A. Jejunum, biopsy: Minimally active chronic jejunitis with mild villous blunting (see comment). B. Duodenum, biopsy: Minimally active chronic duodenitis with focal mild villous blunting (see comment). C. Stomach, biopsy: Gastric oxyntic mucosa with focal mild chronic gastritis. Negative for dysplasia, H. pylori (immunostain) and intestinal metaplasia. Diagnosed 01/2023, EGD 09/11 with chronic duodenitis,tissue transglutaminase IgA negative (reports strict gluten free adherence) Small bowel enteritis noted to be present on imaging from Aug and Sep. Folate 5.3 at OSH, on folic supplementation Completed treatment for candidiasis 09/13, noted stool yeast previously GI on board -Recommended PPI bid, carafate 14 days QID Will obtain stool studies if patient's develops diarrhea #Severe vitamin D deficiency #Bony Sclerosis, Spinal hemangiomas on PET scan January 2023 PET scan 01/2023, lucent lesions without avidity Vit <D <7.0 Start Vit D supplementation #BLE wounds, clinically diagnosed as pyoderma gangrenosum No biopsies performed, wound cultures as OP Started on Bactrim as an op. wounds healed, multiple scarred areas on legs DVT Px: Heparin Total Time Total Time Spent Total Time Spent (In Minutes): 45
[2023-10-20 17:43] LABS: ANTI-Xa, UFH(UnfractionatedHep 0.25 IU/ml (0.3-0.7)
[2023-10-20] MEDS ORDERED: Nursing to Pharmacy Communication SCH (18:15)
[2023-10-21 01:19] LABS: ANTI-Xa, UFH(UnfractionatedHep 0.27 IU/ml (0.3-0.7)
[2023-10-21 08:29] LABS: Hematocrit (blood only) 38.3 % (37.0-47.0); Hemoglobin 12.3 g/dl (12.0-16.0); Mean Corpuscular Hemoglobin 26.6 pg (25.0-34.0); Mean Corpuscular Hgb Conc 32.1 g/dL (32.0-36.0); Mean Corpuscular Volume 82.9 fL (80.0-100.0); Nucleated RBC # (auto) 0.06 K/uL (0.00-0.12); Nucleated RBC % (auto) 0.3 %; Platelet Count 1108 K/uL (130-400); RDW Standard Deviation 52.3 fL (36.4-46.3); Red Blood Count 4.62 M/uL (4.20-5.40); White Blood Count 19.74 K/ul (4.8-10.8)
[2023-10-21 08:36] LABS: Alanine Aminotransferase 17 U/L (7-52); Albumin Globulin Ratio 1.1 (0.9-2); Albumin Level 3.2 gm/dl (3.4-5.0); Alkaline Phosphatase 73 U/L (34-104); Anion Gap 7 (3-11); Aspartate Aminotransferase 25 U/L (13-39); BUN Creatinine Ratio 17.9 (10-20); Bilirubin,Total 0.3 mg/dl (0.2-1.0); Blood Urea Nitrogen 5 mg/dl (6-23); Calcium 8.5 mg/dl (8.6-10.3); Carbon Dioxide 24 mmol/L (21-32); Chloride 104 mmol/L (98-107); Creatinine Clr Calc Pharmacy 197.1 ml/min; Est GFR (African American) > 150.0 ml/min; Est GFR (Non-African American) 138.5 ml/min; Globulin 2.9 gm/dl (2.5-4.0); Glucose 97 mg/dl (70-99(Fasting)); Phosphorus 2.3 mg/dl (2.5-4.9); Potassium 3.9 mmol/L (3.5-5.1); Sodium 135 mmol/L (136-145); Total Protein 6.1 gm/dl (6.0-8.3)
[2023-10-21 08:40] LABS: ANTI-Xa, UFH(UnfractionatedHep 0.28 IU/ml (0.3-0.7)
--- NOTE | 2023-10-21 09:37 | Hospitalist Progress Note ---
Date of Service October 20, 2023 Assessment & Plan (1) Celiac disease: (2) Progressive encephalopathy: (3) Proximal muscle weakness: (4) Severe protein-calorie malnutrition: (5) Glossitis: (6) Stomatitis: (7) Intermittent complete heart block: (8) Hepatomegaly: (9) Splenic atrophy: (10) Thrombocytosis: (11) Fracture of left clavicle: Plan In short, Ms. Guevara is a 48 year old woman with past medical history notable for celiac disease controlled on gluten free diet who is admitted for continued weakness after ongoing workup for progressive neurologic symptoms have been ongoing. Extensive admissions (three this year). Patient with history of celiac disease diagnosed in 01/2023 and has followed a strict gluten free diet. Patient experienced lower extremity wounds that appeared and treated with multiple courses of antibiotics. She was admitted to [facility] on 08/18/2023-08/26/2023 and once again on 09/06/2023- 09/12/2023 for weakness and diagnosed with PMR. Patient presented to [facility] for further evaluation of encephalopathy and weakness. 09/13: MRI brain on was notable for 3mm focus of diffusion restriction in posterior limb of left internal capsule, ?demyelinating lesion v small cortical infarct. -MRI C-spine negative CTA head and neck 09/14 with questionable stenosis of A1 segment on left ICA Neurology with concerns for systemic vasculitis with ONLINE MERCHANDISING SPECIALIST involvement as well as MS Work up included: -CPK and aldolase 5.7 (09/14) negative -ISABELLE 24 (09/22) LP: CSF WBC 9, Glucose 52, Protein 55, Monocytes 12, VDRL negative, HSV PCR negative, paraneoplastic negative, oligoclonal bands negative Autoimmune w/u: RF, anti CCP, QUINN, C3/C4, ati-vitale, anti-REFINING MACHINE OPERATOR, anti-SCL, anti- SSA/SSB, antiDSantibody, MUSK antibodies, anti JO1, ANCA, antiSMA, anticentromere, hepatitis panel, HIV, anticardiolipin antibody, Myasthenia antibodies negative, tick panel negative, cryoglobulin negative 09/16: ECHO: 60-65% 09/17: MRI brain on reveaed stable perfusion abnormality. 09/18: Stroke neurology consulted on noted concer for systemic vasculitis 09/19:Cerebral angiogram with no acute findings effectively making ONLINE MERCHANDISING SPECIALIST vasculitis unlikely per Rheumatology -Rheumatology recommended prednisone 1mg/kg with OP taper and planned OP Rheum follow up, no sural nerve biopsy recommended 09/20: left thigh muscle biopsy -Results: No signs of myositis, "secondary changes" Patient did not continue steroids as prescription was sent to pharmacy that was reportedly close, and family reports not quite understanding the initial discharge plan. Neurology evaluated patient and does not feel there is anything that localizes from a ONLINE MERCHANDISING SPECIALIST standpoint. Transfer to tertiary center was initiated as patient is a 48 year old woman with notable and progressive decline. Given patient was full independent in July 2023, further investigation of possible inherited/genetic, intensive rheumatologic work up, hematologic evaluation and close specialist follow up that cannot be coordinated at this facility. Suspect longstanding, untreated celiac with complicated by hyposplenism with resultant thrombocytosis/leukocytosis. Spleen likely atrophied prior to adherence to gluten free diet reported since 12/2022. 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 Once patient recovers from UTI, will need S pneumoniae and HiB vaccinations. #Acute pulmonary emboli #Bilateral lower extremity DVT -Heparin drip at this time in case further investigations are pursued at [place] ( etc) Plan to transition to Xarelto (three month supply arranged for [facility]) #aspiration pneumonitis -Transition to Zosyn on 10/17 (antibiotics since 10/15) Swallow study suggestive of aspiration, CT chest with c/f pneumonitis, now on room air #Progressive encephalopathy #Intermittent left facial droop, foot drop #Proximal muscle weakness Ongoing waxing and waning deficits, foot drop, facial droop Patient had extensive workup on prior hospitalizations previously Seems to be oriented currently UTI, iron deficiency likely contributing to weakness Folate, B12 levels normal Serology for tickborne illness negative Heavy metal poisoning levels negative Appreciate neurology input -Recommend tertiary center #Acute uncomplicated cystitis Urine culture growing e coli, klebsiella oxytoca pansensitive Blood cultures negative to date Rocephin started on 10/15. transitioned to zosyn 10/17 2/2 aspiration event , day 5 of abx #Iron deficiency anemia Did not tolerate oral iron supplements in the past secondary to diarrhea per family Received Venofer x 3 (200mg) Hematology on board #Chronic left clavicular fracture Incidental finding on chest x-ray Imaging suggestive of healing distal left clavicle fracture Monitor #Dysphagia #Glossitis #Stomatitis #Known history of esophagitis Continue Protonix, Carafate per GI Soft, slippery diet B complex started Aspiration precautions Plan for repeat EGD in November Needs follow-up with GI on discharge #Severe protein calorie malnutrition BMI 17 Dietitian consulted #Thrombocytosis Peripheral Smear, CML work up pending Oncology consulted #Intermittent Complete Heart Block Reported at [facility], declined device discussion at that time per record -Monitor on tele #Celiac Disease c/b spleen atrophy #Folic acid deficiency secondary to malabsorption #Dilated small bowel on imaging #Hepatomegaly with splenic atrophy Evidence of enteritis, infectious or inflammatory, with diffuse small bowel wall thickening. The small bowel is moderately distended with fluid. A. Jejunum, biopsy: Minimally active chronic jejunitis with mild villous blun ting (see comment). B. Duodenum, biopsy: Minimally active chronic duodenitis with focal mild villous blunting (see comment). C. Stomach, biopsy: Gastric oxyntic mucosa with focal mild chronic gastritis. Negative for dysplasia, H. pylori (immunostain) and intestinal metaplasia. Diagnosed 01/2023, EGD 09/11 with chronic duodenitis,tissue transglutaminase IgA negative (reports strict gluten free adherence) Small bowel enteritis noted to be present on imaging from Aug and Sep. Folate 5.3 at OSH, on folic supplementation Completed treatment for candidiasis 09/13, noted stool yeast previously GI on board -Recommended PPI bid, carafate 14 days QID Will obtain stool studies if patient's develops diarrhea #Severe vitamin D deficiency #Bony Sclerosis, Spinal hemangiomas on PET scan January 2023 PET scan 01/2023, lucent lesions without avidity Vit <D <7.0 Start Vit D supplementation #BLE wounds, clinically diagnosed as pyoderma gangrenosum No biopsies performed, wound cultures as OP Started on Bactrim as an op. wounds healed, multiple scarred areas on legs Heparin continued given ? if facility will pursue LP or invasive testing Patient anticipated to be discharged on 10/19 given confirmed bed. Admission and Anticipated Discharge Date Admission Date: October 16, 2023 Subjective No acute events overnight, no notable improvement awaiting [place] transfer Physical Exam Physical Exam: Constitutional weak, frail woman, difficulty opening eyes, lethargic Respiratory normal respiratory effort, lungs clear to auscultation Cardiovascular RRR, no murmur, no edema Gastrointestinal (Abdomen) soft, mild distention, BS+ in all quadrants Musculoskeletal notable muscle wasting in all extremities, Results & Data Results & Data Vital Signs (Past 12 Hours) Vital Signs Temp Pulse Pulse Resp BP Pulse Ox O2 Del Method 10/21/23 07:59 36.7 C 90 20 113/77 94 Room Air 10/21/23 07:22 Room Air 10/21/23 06:00 84 10/21/23 03:47 36.7 C 93 H 18 96/66 L 94 Room Air 10/20/23 23:46 37.8 C H 89 20 97/65 L 95 Room Air 10/20/23 21:59 89 Laboratory Results Short CBC 10/21/23 Range/Units 07:54 WBC 19.74 H (4.8-10.8) K/ul Hgb 12.3 (12.0-16.0) g/dl Hct 38.3 (37.0-47.0) % Plt Count 1108 H* (130-400) K/uL BMP 10/21/23 07:54 Sodium 135 L Potassium 3.9 Chloride 104 Carbon Dioxide 24 BUN 5 L Creatinine 0.28 L Glucose 97 Calcium 8.5 L Liver Function 10/21/23 Range/Units 07:54 Total Bilirubin 0.3 (0.2-1.0) mg/dl AST 25 (13-39) U/L ALT 17 (7-52) U/L Alkaline Phosphatase 73 (34-104) U/L Albumin 3.2 L (3.4-5.0) gm/dl Medications Administered Home Medications Medication Instructions Recorded Confirmed Last Taken aspirin 81 mg tablet,delayed 81 mg PO DAILY 10/16/23 10/16/23 Unknown release folic acid 1 mg tablet 1 mg PO DAILY 10/16/23 10/16/23 Unknown ergocalciferol (vitamin D2) 1,250 1,250 mcg PO We@0900 #30 caps 10/19/23 Unknown mcg (50,000 unit) capsule pantoprazole 40 mg tablet,delayed 40 mg PO BID 30 days #60 tabs 10/19/23 Unknown release sucralfate 1 gram tablet 1 g PO QID 12 days #48 tabs 10/19/23 Unknown vitamin B complex (Vitamins B 1 cap PO QAM 30 days #30 caps 10/19/23 Unknown Complex capsule) Active Medications Generic Name Dose Route Start Last Admin Trade Name Colton PRN Reason Stop Dose Admin Aspirin 81 mg 10/17/23 09:00 10/21/23 09:15 Aspirin 81 Mg Ectab PO 11/16/23 08:59 81 mg DAILY TAYLA Administration Ergocalciferol 1,250 mcg 10/18/23 07:45 10/18/23 09:48 Ergocalciferol 1250 Mcg (50,000 Units) Cap PO 11/17/23 07:44 1,250 mcg We@0900 TAYLA Administration Folic Acid 1 mg 10/17/23 09:00 10/21/23 09:15 Folic Acid 1 Mg Tab PO 11/16/23 08:59 1 mg DAILY TAYLA Administration Pantoprazole Sodium 40 mg/ 10 mls @ 5 mls/min 10/17/23 22:15 10/21/23 09:15 Syringe IV 11/16/23 22:14 5 mls/min BID TAYLA Administration Piperacillin Sod/Tazobactam 100 mls @ 25 mls/hr 10/18/23 06:00 10/21/23 05:39 Sod 4.5 gm/ Dextrose IV 10/25/23 05:59 25 mls/hr Q8H TAYLA Administration Protocol Heparin Sodium/Dextrose 25,000 units in 500 mls @ 27 mls/hr 10/18/23 12:15 10/21/23 09:14 Heparin Sodium/Dextrose IV 11/17/23 12:14 1,350 units/hr .[id number] TAYLA 27 mls/hr Titration Protocol 1,350 UNITS/HR Sucralfate 1 gm 10/17/23 17:00 10/21/23 09:15 Sucralfate 1 Gm Tab PO 10/31/23 16:59 1 gm QID TAYLA Administration Vitamin B Complex 1 tab 10/17/23 09:00 10/21/23 09:15 Vitamin B Complex Tab PO 11/16/23 08:59 1 tab QAM TAYLA Administration (11) Fracture of left clavicle Clavicle location: lateral end Encounter type: initial encounter Fracture alignment: nondisplaced Fracture type: closed Qualified Code(s): S42.035A - Nondisplaced fracture of lateral end of left clavicle, initial encounter for closed fracture
--- NOTE | 2023-10-21 09:43 | Hospitalist Progress Note ---
Date of Service October 21, 2023 Assessment & Plan (1) Celiac disease: (2) Progressive encephalopathy: (3) Proximal muscle weakness: (4) Severe protein-calorie malnutrition: (5) Glossitis: (6) Stomatitis: (7) Intermittent complete heart block: (8) Hepatomegaly: (9) Splenic atrophy: (10) Thrombocytosis: (11) Fracture of left clavicle: Plan In short, Ms. Guevara is a 48 year old woman with past medical history notable for celiac disease controlled on gluten free diet who is admitted for continued weakness after ongoing workup for progressive neurologic symptoms have been ongoing. Extensive admissions (three this year). Patient with history of celiac disease diagnosed in 01/2023 and has followed a strict gluten free diet. Patient experienced lower extremity wounds that appeared and treated with multiple courses of antibiotics. She was admitted to [facility] on 08/18/2023-08/26/2023 and once again on 09/06/2023- 09/12/2023 for weakness and diagnosed with PMR. Patient presented to [place] for further evaluation of encephalopathy and weakness. 09/13: MRI brain on was notable for 3mm focus of diffusion restriction in posterior limb of left internal capsule, ?demyelinating lesion v small cortical infarct. -MRI C-spine negative CTA head and neck 09/14 with questionable stenosis of A1 segment on left ICA Neurology with concerns for systemic vasculitis with BRAND ANALYST involvement as well as MS Work up included: -CPK and aldolase 5.7 (09/14) negative -ISABELLE 24 (09/22) LP: CSF WBC 9, Glucose 52, Protein 55, Monocytes 12, VDRL negative, HSV PCR negative, paraneoplastic negative, oligoclonal bands negative Autoimmune w/u: RF, anti CCP, QUINN, C3/C4, ati-vitale, anti-FILLING AND STAPLING MACHINE OPERATOR, anti-SCL, anti- SSA/SSB, antiDSantibody, MUSK antibodies, anti JO1, ANCA, antiSMA, anticentromere, hepatitis panel, HIV, anticardiolipin antibody, Myasthenia antibodies negative, tick panel negative, cryoglobulin negative 09/16: ECHO: 60-65% 09/17: MRI brain on reveaed stable perfusion abnormality. 09/18: Stroke neurology consulted on noted concer for systemic vasculitis 09/19:Cerebral angiogram with no acute findings effectively making BRAND ANALYST vasculitis unlikely per Rheumatology -Rheumatology recommended prednisone 1mg/kg with OP taper and planned OP Rheum follow up, no sural nerve biopsy recommended 09/20: left thigh muscle biopsy -Results: No signs of myositis, "secondary changes" Patient did not continue steroids as prescription was sent to pharmacy that was reportedly close, and family reports not quite understanding the initial discharge plan. Neurology evaluated patient and does not feel there is anything that localizes from a BRAND ANALYST standpoint. Transfer to tertiary center was initiated as patient is a 48 year old woman with notable and progressive decline. Given patient was full independent in July 2023, further investigation of possible inherited/genetic, intensive rheumatologic work up, hematologic evaluation and close specialist follow up that cannot be coordinated at this facility. Suspect longstanding, untreated celiac with complicated by hyposplenism with resultant thrombocytosis/leukocytosis. Spleen likely atrophied prior to adherence to gluten free diet reported since 12/2022. 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 Once patient recovers from UTI, will need S pneumoniae and HiB vaccinations. On day 6 of abx regimen. Patient noted to have diaphoretic today, no localizing symptoms: no diarrhea, no urinary reports, no cough/increased sputum. #Low grade Fevers #Diaphoresis -iso leukocytosis - states this is ongoing phenomenon Has been on zosyn for UTI/aspiration, but new onset diaphroesis and stable leukocytosis (is this 2/2 to splenic atrophy, labs op reveal persistence in WBC) -Legionella, Mycoplasma, blood cultures, ua and fungal cultures with procal ordered -CTM Tylenol prn fevers #Acute pulmonary emboli #Bilateral lower extremity DVT -Heparin drip at this time in case further investigations are pursued at [place] ( etc) Plan to transition to Xarelto (three month supply arranged for familyi) #aspiration pneumonitis -Transition to Zosyn on 10/17 (antibiotics since 10/15) Swallow study suggestive of aspiration, CT chest with c/f pneumonitis, now on room air #Progressive encephalopathy #Intermittent left facial droop, foot drop #Proximal muscle weakness Ongoing waxing and waning deficits, foot drop, facial droop Patient had extensive workup on prior hospitalizations previously Seems to be oriented currently UTI, iron deficiency likely contributing to weakness Folate, B12 levels normal Serology for tickborne illness negative Heavy metal poisoning levels negative Appreciate neurology input -Recommend tertiary center #Acute uncomplicated cystitis Urine culture growing e coli, klebsiella oxytoca pansensitive Blood cultures negative to date Rocephin started on 10/15. transitioned to zosyn 10/17 2/2 aspiration event , day 6 of abx total UA repeat given fevers #Iron deficiency anemia Did not tolerate oral iron supplements in the past secondary to diarrhea per family Received Venofer x 3 (200mg) Hematology on consult--no further recommendations #Chronic left clavicular fracture Incidental finding on chest x-ray Imaging suggestive of healing distal left clavicle fracture Monitor #Dysphagia #Glossitis #Stomatitis #Known history of esophagitis Continue Protonix, Carafate per GI Soft, slippery diet B complex started Aspiration precautions Plan for repeat EGD in November Needs follow-up with GI on discharge #Severe protein calorie malnutrition BMI 17 Dietitian consulted #Thrombocytosis Peripheral Smear, CML work up pending Oncology consulted Suspect likely 2/2 splenic atrophy #Intermittent Complete Heart Block Reported at [facility], declined device discussion at that time per record -Monitor on tele #Celiac Disease c/b spleen atrophy #Folic acid deficiency secondary to malabsorption #Dilated small bowel on imaging #Hepatomegaly with splenic atrophy Evidence of enteritis, infectious or inflammatory, with diffuse small bowel wall thickening. The small bowel is moderately distended with fluid. A. Jejunum, biopsy: Minimally active chronic jejunitis with mild villous blunting (see comment). B. Duodenum, biopsy: Minimally active chronic duodenitis with focal mild villous blunting (see comment). C. Stomach, biopsy: Gastric oxyntic mucosa with focal mild chronic gastritis. Negative for dysplasia, H. pylori (immunostain) and intestinal metaplasia. Diagnosed 01/2023, EGD 09/11 with chronic duodenitis,tissue transglutaminase IgA negative (reports strict gluten free adherence) Small bowel enteritis noted to be present on imaging from Aug and Sep. Folate 5.3 at OSH, on folic supplementation Completed treatment for candidiasis 09/13, noted stool yeast previously GI on board -Recommended PPI bid, carafate 14 days QID Will obtain stool studies if patient's develops diarrhea #Severe vitamin D deficiency #Bony Sclerosis, Spinal hemangiomas on PET scan January 2023 PET scan 01/2023, lucent lesions without avidity Vit <D <7.0 Continue Vit D supplementation q7days #BLE wounds, clinically diagnosed as pyoderma gangrenosum No biopsies performed, wound cultures as OP Started on Bactrim as an OP wounds healed, multiple scarred areas on legs --no signs of active infection. Heparin continued given ? if facility will pursue LP or invasive testing Patient anticipated to be discharged on 10/19 given confirmed bed. Continuing to work with transfer center to determine bed availability and transfer Admission and Anticipated Discharge Date Admission Date: October 16, 2023 Subjective Low grade fever, 37.9 and 37.8 overnight Diaphoretic Bowel movement last evening, soft/formed Urinating well Patient will groan and awakento verbal stimuli, was able to take tylenol in applecauce without coughing Physical Exam Constitutional: weak frail woman, warm/flushed diaphoretic today Cardiovascular: tachycardic no murmur Gastrointestinal (Abdomen): soft, no grimacing noted on deep palpation Skin: no new skin lesions appreciated Results & Data Results & Data Vital Signs (Past 12 Hours) Vital Signs Temp Pulse Pulse Resp BP Pulse Ox O2 Del Method 10/21/23 07:59 36.7 C 90 20 113/77 94 Room Air 10/21/23 07:22 Room Air 10/21/23 06:00 84 10/21/23 03:47 36.7 C 93 H 18 96/66 L 94 Room Air 10/20/23 23:46 37.8 C H 89 20 97/65 L 95 Room Air 10/20/23 21:59 89 Laboratory Results Short CBC 10/21/23 Range/Units 07:54 WBC 19.74 H (4.8-10.8) K/ul Hgb 12.3 (12.0-16.0) g/dl Hct 38.3 (37.0-47.0) % Plt Count 1108 H* (130-400) K/uL BMP 10/21/23 07:54 Sodium 135 L Potassium 3.9 Chloride 104 Carbon Dioxide 24 BUN 5 L Creatinine 0.28 L Glucose 97 Calcium 8.5 L Liver Function 10/21/23 Range/Units 07:54 Total Bilirubin 0.3 (0.2-1.0) mg/dl AST 25 (13-39) U/L ALT 17 (7-52) U/L Alkaline Phosphatase 73 (34-104) U/L Albumin 3.2 L (3.4-5.0) gm/dl Medications Administered Home Medications Medication Instructions Recorded Confirmed Last Taken aspirin 81 mg tablet,delayed 81 mg PO DAILY 10/16/23 10/16/23 Unknown release folic acid 1 mg tablet 1 mg PO DAILY 10/16/23 10/16/23 Unknown ergocalciferol (vitamin D2) 1,250 1,250 mcg PO We@0900 #30 caps 10/19/23 Unknown mcg (50,000 unit) capsule pantoprazole 40 mg tablet,delayed 40 mg PO BID 30 days #60 tabs 10/19/23 Unknown release sucralfate 1 gram tablet 1 g PO QID 12 days #48 tabs 10/19/23 Unknown vitamin B complex (Vitamins B 1 cap PO QAM 30 days #30 caps 10/19/23 Unknown Complex capsule) Active Medications Generic Name Dose Route Start Last Admin Trade Name Colton PRN Reason Stop Dose Admin Aspirin 81 mg 10/17/23 09:00 10/21/23 09:15 Aspirin 81 Mg Ectab PO 11/16/23 08:59 81 mg DAILY TAYLA Administration Ergocalciferol 1,250 mcg 10/18/23 07:45 10/18/23 09:48 Ergocalciferol 1250 Mcg (50,000 Units) Cap PO 11/17/23 07:44 1,250 mcg We@0900 TAYLA Administration Folic Acid 1 mg 10/17/23 09:00 10/21/23 09:15 Folic Acid 1 Mg Tab PO 11/16/23 08:59 1 mg DAILY TAYLA Administration Pantoprazole Sodium 40 mg/ 10 mls @ 5 mls/min 10/17/23 22:15 10/21/23 09:15 Syringe IV 11/16/23 22:14 5 mls/min BID TAYLA Administration Piperacillin Sod/Tazobactam 100 mls @ 25 mls/hr 10/18/23 06:00 10/21/23 05:39 Sod 4.5 gm/ Dextrose IV 10/25/23 05:59 25 mls/hr Q8H TAYLA Administration Protocol Heparin Sodium/Dextrose 25,000 units in 500 mls @ 27 mls/hr 10/18/23 12:15 10/21/23 09:14 Heparin Sodium/Dextrose IV 11/17/23 12:14 1,350 units/hr .[id number] TAYLA 27 mls/hr Titration Protocol 1,350 UNITS/HR Sucralfate 1 gm 10/17/23 17:00 10/21/23 09:15 Sucralfate 1 Gm Tab PO 10/31/23 16:59 1 gm QID TAYLA Administration Vitamin B Complex 1 tab 10/17/23 09:00 10/21/23 09:15 Vitamin B Complex Tab PO 11/16/23 08:59 1 tab QAM TAYLA Administration (11) Fracture of left clavicle Clavicle location: lateral end Encounter type: initial encounter Fracture alignment: nondisplaced Fracture type: closed Qualified Code(s): S42.035A - Nondisplaced fracture of lateral end of left clavicle, initial encounter for closed fracture
[2023-10-21] MEDS: ACETAMINOPHEN 325 MG TAB PO PRN (12:03)
[2023-10-21] MEDS ORDERED: SODIUM PHOSPHATE 3 MMOL/1 ML INFUSION IV STA (14:05)
[2023-10-21 14:17] LABS: Thyroid Stimulating Hormone 1.612 uIu/ml (0.300-4.500)
[2023-10-21 14:18] LABS: Adenovirus PCR Not Detected (NotDetected); Bordetella parapertussis PCR Not Detected (NotDetected); Bordetella pertussis PCR Not Detected (NotDetected); Chlamydia pneumoniae PCR Not Detected (NotDetected); Coronavirus 229E PCR Not Detected (NotDetected); Coronavirus CoV-2 (COVID19)PCR Not Detected (NotDetected); Coronavirus HKU1 PCR Not Detected (NotDetected); Coronavirus NL63 PCR Not Detected (NotDetected); Coronavirus OC43PCR Not Detected (NotDetected); Human Metapneumovirus PCR Not Detected (NotDetected); Influenza A PCR Not Detected (NotDetected); Influenza B PCR Not Detected (NotDetected); Mycoplasma pneumoniae PCR Not Detected (NotDetected); Parainfluenza Virus 1 PCR Not Detected (NotDetected); Parainfluenza Virus 2 PCR Not Detected (NotDetected); Parainfluenza Virus 3 PCR Not Detected (NotDetected); Parainfluenza Virus 4 PCR Not Detected (NotDetected); Respiratory Syncytial VirusPCR Not Detected (NotDetected); Rhinovirus/Enterovirus PCR Not Detected (NotDetected)
[2023-10-21 14:19] LABS: T4 Free Thyroxine 0.74 ng/dl (0.61-1.60)
[2023-10-21] MEDS: SODIUM PHOSPHATE 21 MMOL in SODIUM CHLORIDE 0.9% 500 ML IV STA (15:19)
[2023-10-21] MEDS: MUPIROCIN 2% OINT 22 GM TUBE EXT SCH (16:06)
[2023-10-21] MEDS ORDERED: VANCOMYCIN CONSULT ACTIVE PRN (16:18)
[2023-10-21] MEDS ORDERED: Nursing to Pharmacy Communication SCH (18:00)
[2023-10-21 18:12] LABS: Appearance Urine Clear (Clear); Bacteria Urine Automated Negative (Negative); Bilirubin Urine Negative (Negative); Blood Urine Negative (Negative); Cast Urine Automated 0 /lpf (0-5); Color Urine Yellow; Epithelial Cell Urine Auto 20-30 /lpf (0-5); Glucose Urine UA Negative (Negative); Ketones Urine Negative (Negative); Leukocyte Esterase Urine Trace (Negative); Nitrite Urine Negative (Negative); Protein Urine Negative (Negative); RBC Urine Automated 0-4 /hpf (0-4); Specific Gravity Urine 1.009 (1.000-1.030); Urobilinogen Urine Negative (Negative); pH Urine 6.5 (4.5-7.5)
[2023-10-21] MEDS: VANCOMYCIN HCL 1,000 MG in SODIUM CHLORIDE 0.9% 500 ML IV ONE (18:13)
[2023-10-21 18:58] LABS: ANTI-Xa, UFH(UnfractionatedHep 0.26 IU/ml (0.3-0.7)
[2023-10-21] MEDS ORDERED: VANCOMYCIN HCL 1,000 MG in SODIUM CHLORIDE 0.9% 500 ML IV ONE (21:00)
[2023-10-21] MEDS: VANCOMYCIN HCL 1,000 MG in SODIUM CHLORIDE 0.9% 250 ML IV ONE (21:31)
[2023-10-22 23:34] LABS: Babesia microti DNA Not Detected (Not Detected); Q Fever IgG, Phase I NEGATIVE; Q Fever Phase I IgM Antibody NEGATIVE; Q Fever Phase II IgG Antibody NEGATIVE; Q Fever Phase II IgM Antibody NEGATIVE; R. typhi IgG Ab NOT DETECTED; R. typhi IgM Ab NOT DETECTED; RMSF IgG Ab NOT DETECTED; RMSF IgM Ab NOT DETECTED
== END 2023-10-22 01:30 | disposition short-term general hospital (02) | DRG 70 ==
LOC: EDSEX → ED 10:16 → 2W 14:49 → MERGE 14:49 → SUATTDRO 14:49 → 2W 16:30